=== PATIENT | female | born 1955 | race Caucasian/White ===

== ENCOUNTER 2019-08-05 10:30 | Outpatient (RCR) | payer OTHER, SELFPAY ==
--- NOTE | 2019-06-21 15:29 | PTOPEVAL ---
PHYSICAL THERAPY EVALUATION and PLAN OF CARE 06-21-19 The Physical Therapy evaluation was completed for the diagnosis of B LE lymphedema. Treatment is scheduled for 3x/week for 5 weeks. Thank you for referring Sandra to [facility]. Please review, sign, date and return this plan of care KT. I agree with and certify that the following plan of care is medically necessary. Referring Physician Date Attending Provider: Barb Smith NP *PT Outpatient Evaluation Start: 06/21/19 14:12 Document 06/21/19 14:05 TISHA (Rec: 06/21/19 15:23 TISHA [id number]) Assessment Status Evaluation Outpatient Past Medical History Neurological History Hx Other Neurological Disorders Yes: narcolepsy- getting work up for Cardiovascular History Hx Atrial Fibrillation Yes Hx Congestive Heart Failure Yes Hx Hypercholesterolemia Yes Hx Myocardial Infarction Yes Hx Other Cardiac Disorders Yes: follow with medical billing coordinator; recent monitoring manager Respiratory History Hx Chronic Obstructive Pulmonary Disease Yes (COPD) Hx Pneumonia Yes: recent hospitalization for pneumonia/flu Hx Sleep Apnea Yes: just received, problems with it Gastrointestinal History Hx Gastric Bypass Surgery Yes: about 15 yr ago Genitourinary History Hx Kidney Stones Yes: surgery 2x last yr; still have issues with Musculoskeletal History Hx Arthritis Yes: hands, legs hurt Hx Back Pain Yes: back pain and sciatica L LE Hx Joint Replacement Yes: TKR R Hx Other Musculoskeletal Disorders Yes: obesity 265#;restless leg syndrome Endocrine History Hx Diabetes Yes Hx Insulin Pump Yes: problems with pump- follow with isaac dutta's Psychosocial History Hx Bipolar Disorder Yes: not taking any meds Evaluation Information Problem Diagnosis B LE lymphedema Onset about 3 weeks ago- hospitalized with cellulitis B LE Previous Treatments Previous Treatments For This Problem no treatment of LE's Prior Level of Function Activity Level (Last 3 Months) Occupation not working Hand Dominance Right Medications Home Meds (Include: OTC, RX, Vitamins, inhaler, diabetic pump, Herbals, Dose, Route,and Frequency) furosemide, carvedilol, Query Text:Home Med Entries Will No fluconazole; Longer Recall From Past Visits. Home Meds Must Be Re-entered With Each Visit. Home Setting Home Type
--- NOTE | 2019-06-21 15:42 | PCPTNOTE ---
pt has limited availability for treatment times. She needs 2:00 or later appointment. Due to her limitations, treatment not initiated for 2 weeks. If availability is sooner, she will be called for an earlier appt;
--- NOTE | 2019-08-03 14:41 | PTOPEVAL ---
PHYSICAL THERAPY RE-EVALUATION AND UPDATED PLAN OF CARE 08-03-2019 Mrs. Chen has received 14 Physical Therapy sessions, from June 21 to today, for the diagnosis of B LE lymphedema. Treatment has included: manual lymph drainage, intermittent compression pump, multi layer compression wraps and education to pt for lymphedema care and management and leg exercises for strengthening. Compared to the initial evaluation: the circumferential measurement of her R LE has decreased by 32.3 cm and the tissue has improved with good skin color and without firmness; she has recently obtained a [employer] Juxtaf[employer] essential lower leg compression garment and foot piece for the R leg, which fit well and she can don/doff them; The compression wraps will be started today for the L lower leg. The strength of her R leg has improved since the size of the leg has decreased; she still has issues with SOB and L LE weakness with on/off bed. Physical Therapy is to continue 3x/week for 5 weeks, for treatment to her L lower leg and to obtain a compression garment to maintain the L LE. Thank you for referring Sandra to [facility]. Please review, sign, date and return this plan of care [facility]. I agree with and certify that the following plan of care is medically necessary. Referring Physician Date Attending Provider: Barb Smith NP *PT Outpatient Re-Evaluation Document 08/03/19 13:50 TISHA (Rec: 08/03/19 14:34 TISHA [id number]) Therapy Assessment Status Assessment Status Assessment Status Re-evaluation Subjective Information Sandra reports: is happy about Query Text:As Reported By Patient/ how good her R leg looks; the Family garment is doing OK--hard to get the foot piece on and daughter can help some if needed; has been doing her deep breathing and self massage. Pain Assessment Pain Scale Pain Scale Used Numeric (1 - 10) Self Report Pain Assessment Bilateral Leg(s) Reported Pain Level 0 Pain Description Soreness,Tender on Palpation Pain Radiation Left Leg,Right Leg Pain Frequency Intermittent Current Pain Intensity 0 Lowest Pain Intensity 0 Greatest Pain Intensity 3 Pain Level Goal 0 Pain Score Pain Score 0: Self Report Lower Extremity Muscle Strength Testing General Lower Extremity Strength Gross Lower Extremity Strength semi reclined: SLR on R x 15 reps and L x 6 reps; stated L leg really heavy and hard to lift in/out bed; Bed Mobility Assessment Bed Mobility Bed Type Mat Supine to Sit Ability Independent Sit to Supine Ability Independent Cues Needed for Bed Mobility None Bed Mobility Comments supine/sit transfer with use of UE to lift L LE on/
--- NOTE | 2019-08-09 11:30 | PCPTNOTE ---
late note;Pt called and cancelled her appointment yesterday, stating she went to our hospital this weekend due to lymph vesicle popping lower anterior leg and opening skin. Pt was told she needed to see wound care. Pt has an appointment for Thursday with wound care .
--- NOTE | 2019-08-15 09:17 | PCPTNOTE ---
Patient called & cancelled scheduled appointment this date due to still seeing wound care . tp has appt. Thursday with wound care and they have a wound wrap on it.
--- NOTE | 2019-08-17 11:34 | PCPTNOTE ---
Pt called last night at 5:30 and stated she was going to cancel thu and thu appt due to open wounds. Called pt back to check on her. Pt stated she had not gone to the wound center after contacting her freight router who wanted to treat her himself. After this treatment did not heal her wounds, the dr has now referred her to the wound center. i contacted the wound center, talked to Claudine to see if they could see her as soon as possible due to her wound being deeper now. Claudine stated she had her on the list to get her in on Thursday. I called Charlene back to let her know Claudine would be calling her after lunch.
--- NOTE | 2019-08-22 08:35 | PCPTNOTE ---
Charlene called and left a message this weekend about cancelling appointments. Returned her call and patient stated she was going to cancel this weeks appointment due to still going to wound center for her left anterior lower leg. Pt reports she is continuing to perform self mld with the help of her daughter, but she did take off the compression from the wound center due to skin irritation. Pt is keeping wound covered during day and using neosporin. Suggested pt call the wound center to make sure this is appropriate for her wound. pt has an appointment with wound center on Thursday.
--- NOTE | 2019-08-26 11:05 | PCPTNOTE ---
Charlene called and I returned call. Charlene stated she will need to have open heart surgery and will be cancelling all remaining therapy visits for now. Pt stated she had lost #22 pounds since her last her last de visit and had another echo cardiogram which showed her left ventricular has a valve that is not closing properly.
--- NOTE | 2019-09-06 14:32 | PCPTNOTE ---
PHYSICAL THERAPY DISCHARGE 09-06-2019 Attending Provider: Barb Smith NP Patient:Charlene Chen Date of :1955 Mrs. Chen has received 15 Physical Therapy sessions, from June 21 to August 05, for the diagnosis of lymphedema of LE's. She called/canceled 10 appointments, then called on August 26 and stated she is going to have cardiac surgery. Therefore she will be discharged from therapy at this time. The goals were not assessed. Thank you for referring Sandra to [facility]. Please review, sign, date and return this discharge summary KT. I have been updated about the patient's current status and I agree with discharge from the above service at this time. Referring Physician Date
== END 2019-09-07 11:15 | disposition home or self-care (01) ==
LOC: ANHPT 10:30
PROVIDERS: PCP Internal Medicine; Visit Provider Nurse Practitioner
DX: R60.9 Edema, unspecified (principal)
CPT/HCPCS: 29581; 97140; 97162

== ENCOUNTER 2019-08-08 05:57 | Emergency (ER) | payer OTHER, SELFPAY ==
[2019-08-08 06:06] VITALS: BP 110/93; PULSE 97; RESP 20; TEMP 37.2; O2SAT 100
--- NOTE | 2019-08-08 06:41 | ED.WOUNDLAC ---
HPI - Wound/Laceration General Chief Complaint: Wound/Laceration Stated Complaint: leg infection Time Seen by Provider: 08/08/19 06:16 Source: patient Mode of arrival: ambulatory Limitations: no limitations History of Present Illness HPI narrative: Patient is a 64-year-old female who presents to the emergency department with complaint of wound to her left lower leg. Patient is currently being seen in the wound care clinic and receiving treatment for lymphedema. Patient noticed a blister on the anterior aspect of her left lower leg 3 days ago. Patient describes a burning and stinging pain. Patient notes the blister did pop and has been draining clear fluid. Patient has occasionally noticed redness intermittently to her left lower leg that has been going on for quite some time. Patient states it was quite red this morning, but has improved. Patient denies any fever. She does report having nausea and one episode of vomiting yesterday. Patient is scheduled to be seen at the wound care clinic today to have her legs rewrapped. Patient has prior history of cellulitis to that leg and was concerned she may be at risk for developing cellulitis again. Onset (ago): day(s) Extremity Location: Left: lower leg Associated symptoms: pain Related Data Home Medications Medication Instructions Recorded Confirmed albuterol sulfate 90 mcg/actuation 2 puff INHALATION Q4-6H PRN gm 05/26/19 07/26/19 aerosol inhaler blood sugar diagnostic #10 each 05/26/19 07/26/19 budesonide-formoterol HFA 160 1 puff INHALATION DAILY PRN gm 05/26/19 07/26/19 mcg-4.5 mcg/actuation aerosol inhaler insulin lispro 100 unit/mL 140 unit SUB-Q ONCE ml 05/26/19 07/26/19 subcutaneous pen ropinirole 3 mg tablet 3 mg PO BID 05/26/19 07/26/19 carvedilol 12.5 mg tablet 25 mg PO BID tablet 06/09/19 07/26/19 sacubitril 24 mg-valsartan 26 mg 1 tablet PO BID 07/21/19 07/26/19 tablet tiotropium bromide 2.5 2 puff INHALATION DAILY 07/21/19 07/26/19 mcg/actuation mist for inhalation benzonatate mg PO 08/08/19 fluticasone propionate INTRANASAL 08/08/19 Allergies Allergy/AdvReac Type Severity Reaction Status Date / Time latex Allergy Severe HIVES Verified 08/08/19 06:07 Penicillins Allergy Severe HIVES Verified 08/08/19 06:07 cephalexin [From Keflex] Allergy Diarrhea Verified 08/08/19 06:07 diphenhydramine AdvReac Intermediate JERKY/JUMPY, Verified 08/08/19 06:07 GO CRAZY IN MY SKIN hydrocodone AdvReac Intermediate skin Verified 08/08/19 06:07 itchiness codeine AdvReac Mild NAUSEA/VOMI Verified 08/08/19 06:07 TING Review of Systems Review of Systems: All systems reviewed & are unremarkable except as noted in HPI and below Constitutional: Constitutional: Denies fever(s) Gastrointestinal: Gastrointestinal: Reports nausea and Reports vomiting PMFSH Past Medical History Medical History (Updated 08/08/19 @ 09:11 by Lalita Miller MD) Anisocoria Asthma Atrial fibrillation Bipolar disorder Celiac disease CHF (congestive heart failure) COPD (chronic obstructive pulmonary disease) Coronary artery disease Depression GERD (gastroesophageal reflux disease) Hyperlipidemia Hypertension Influenza A Kidney stones Obesity RLS (restless legs syndrome) Sleep apnea Thyroid disease Type 2 diabetes mellitus without complications Surgical History Surgical History (Updated 08/08/19 @ 06:51 by Lalita Miller MD) H/O gastric bypass H/O: hysterectomy History of carpal tunnel release of both wrists History of cholecystectomy History of cystoscopy History of esophagogastroduodenoscopy (EGD) History of lithotripsy History of total right knee replacement (TKR) Multiple kidney stones Surgery X2 Family History Family History (Updated 05/25/19 @ 12:46 by Betty Deluca CMA) Father Diabetes mellitus Acute myocardial infarction Mother Family history of peptic ulcer Family history of chronic obstructive pulmo
[2019-08-08 06:58] LABS: Basophils Absolute Auto 0.1 K/mm3 (0.0-0.1); Basophils Percent Auto 0.8 % (0.2-1.2); Eosinophils Absolute Auto 0.1 K/mm3 (0-0.3); Hematocrit 31.6 % (37.0-47.0); Hemoglobin 9.2 g/dL (12.0-15.0); Immature Granulocyte Absolute 0.02 K/mm3 (0.00-0.031); Immature Granulocyte Percent A 0.3 % (0-0.5); Lymphocytes Absolute Auto 0.91 K/mm3 (0.9-3.2); Lymphocytes Percent Auto 14.8 % (18.3-44.2); Mean Corpuscular HGB Conc 29.1 g/dl (32-36); Mean Corpuscular Hemoglobin 22.1 pg (26-34); Monocytes Absolute Auto 0.6 K/mm3 (0.1-0.6); Monocytes Percent Auto 9.1 % (2.6-8.5); Neutrophils Absolute Auto 4.5 K/mm3 (1.3-6.7); Platelet Count Result 221 k/mm3 (150-375); Red Blood Count 4.16 M/mm3 (4.2-5.4); Red Cell Distribution Width 17.2 % (11.5-14.5); White Blood Count 6.1 K/mm3 (4.5-10.0)
[2019-08-08 07:02] VITALS: BP 131/73; PULSE 81; RESP 20; O2SAT 100
[2019-08-08 07:16] LABS: Blood Urea Nitrogen 21 mg/dL (7-17); CRP < 0.5 mg/dL (<1.0); Calcium 8.7 mg/dL (8.4-10.2); Carbon Dioxide 25 mmol/L (22-30); Chloride 104 mmol/L (98-107); Estimated Glomerular Filt Rate > 60; Glucose 196 mg/dL (65-105); Potassium 4.4 mmol/L (3.4-5.0); Sodium 135 mmol/L (137-145)
[2019-08-08 07:25] LABS: Hypochromasia 2+ (NORMAL); Platelet Estimate Adequate (Adequate); Polychromasia 1+ (NORMAL)
--- NOTE | 2019-08-08 07:25 | PC.NURSE ---
Assumed care of pt, pt is alert and upright on stretcher. Discussed POC w/ pt and family member at bedside. VSS.
[2019-08-08 08:54] VITALS: BP 140/91; PULSE 82; RESP 15; O2SAT 100
[2019-08-08 09:25] VITALS: BP 145/92; PULSE 93; RESP 18; O2SAT 100
== END 2019-08-08 09:27 | disposition home or self-care (01) ==
PROVIDERS: Emergency Provider Emergency Medicine; PCP Internal Medicine
DX: I83.892 Varicose veins of left lower extremity with other complications (principal); I87.8 Other specified disorders of veins; J44.9 Chronic obstructive pulmonary disease, unspecified; I48.91 Unspecified atrial fibrillation; K90.0 Celiac disease; I25.10 Atherosclerotic heart disease of native coronary artery without angina pectoris; K21.9 Gastro-esophageal reflux disease without esophagitis; E78.5 Hyperlipidemia, unspecified; I11.0 Hypertensive heart disease with heart failure; I50.9 Heart failure, unspecified; Z87.442 Personal history of urinary calculi; E66.9 Obesity, unspecified; G47.30 Sleep apnea, unspecified; G25.81 Restless legs syndrome; E11.9 Type 2 diabetes mellitus without complications; Z79.4 Long term (current) use of insulin; Z98.84 Bariatric surgery status; Z96.651 Presence of right artificial knee joint
CPT/HCPCS: 36415; 80048; 85025; 86140; 99283

== ENCOUNTER 2019-08-30 07:21 | Outpatient (RCR) | payer OTHER, SELFPAY ==
[2019-08-19 15:01] VITALS: BMI 43.5
== END 2019-10-19 14:48 | disposition home or self-care (01) ==
LOC: ANHWOC 07:21
PROVIDERS: PCP Internal Medicine; Visit Provider Nurse Practitioner
DX: I87.8 Other specified disorders of veins (principal); L97.829 Non-pressure chronic ulcer of other part of left lower leg with unspecified severity; I89.0 Lymphedema, not elsewhere classified
CPT/HCPCS: 29581; 99212; A9270; G0463

== ENCOUNTER 2019-09-02 05:12 | Day surgery (SDC) | payer OTHER, SELFPAY ==
[2019-09-01 09:27] VITALS: BMI 41.6
[2019-09-02] VITALS (7 sets, daily range): BP systolic 124–139; BP diastolic 70–87; PULSE 84–94; RESP 15–22; TEMP 36.6–37.2; O2SAT 98–100
--- NOTE | 2019-09-02 | ECHO_ITS ---
Patient Info Name: Charlene Chen Age: 64 years : 1955 Gender: Female Ht: 66 in Wt: 257 lbs BSA: 2.39 m2 HR: 92 bpm BP: 138 / 80 mmHg Heart Rhythm: Sinus Rhythm Technical Quality: Good Exam Date: 09/02/2019 1:42 PM Exam Location: [facility] Patient Status: Outpatient Admit Date: 09/02/2019 Staff Ordering Physician: Tone Mishra MD Food Checker: Riley Levi, MICHEAL, RT Attending Provider: Tone Mishra MD Referring Physician: Tad WYNN; Exam Type: CA echo transesophageal Study Info Indications I34.8 - Other nonrheumatic mitral valve disorders Complete two-dimensional, color flow and Doppler transesophageal study is performed. Summary 1. Left ventricular systolic function is severely reduced with an ejection fraction by Biplane Method of Discs of Empty. 2. Left ventricular chamber dimension is moderately enlarged. 3. The mitral valve has normal leaflets. 4. There is moderate to severe mitral valve regurgitation. 5. MR appears to be the result of left ventricular annular dilation. Left Ventricle Left ventricular chamber dimension is moderately enlarged. Left ventricular systolic function is severely reduced with an ejection fraction by Biplane Method of Discs of Empty. Right Ventricle Right ventricular chamber dimension is mildly enlarged. Aortic Valve The aortic valve is trileaflet. Pulmonic Valve The pulmonic valve is normal. Mitral Valve The mitral valve has normal leaflets. There is moderate to severe mitral valve regurgitation. MR appears to be the result of left ventricular annular dilation. Tricuspid Valve The tricuspid valve leaflets are normal. There is mild tricuspid valve regurgitation. Pericardium/Pleural The pericardium appears normal. Inferior Vena Cava Not well visualized inferior vena cava with Empty collapse upon inspiration consistent with Empty right atrial pressure, Empty. Aorta The aortic root size at the sinus of Valsalva is normal. Report Signatures
--- NOTE | 2019-09-02 12:00 | WPDANESEPPF ---
Anes - Initial Pre Proc Eval Procedure: Operation Date: 09/02/19 13:30 Proposed Procedures p Trans Esophageal Echo - Tone Mishra MD Date/Time: 09/02/19 12:00 Surgeon: Tone Mishra MD Pre Op Diagnosis: Cardiomyopathy/ Moderate MR Patient Data Age: 64 Gender: F Height: 1.68 m Weight: 117 kg Allergies Allergy/AdvReac Type Severity Reaction Status Date / Time latex Allergy Severe HIVES Verified 08/08/19 06:07 Penicillins Allergy Severe HIVES Verified 08/08/19 06:07 cephalexin [From Keflex] Allergy Diarrhea Verified 08/08/19 06:07 diphenhydramine AdvReac Intermediate JERKY/JUMPY, Verified 08/08/19 06:07 GO CRAZY IN MY SKIN hydrocodone AdvReac Intermediate skin Verified 08/08/19 06:07 itchiness codeine AdvReac Mild NAUSEA/VOMI Verified 08/08/19 06:07 TING Home Medications Medication Instructions Recorded Confirmed Type albuterol sulfate 90 mcg/actuation 2 puff INHALATION Q4-6H PRN gm 05/26/19 08/25/19 History aerosol inhaler blood sugar diagnostic #10 each 05/26/19 08/25/19 History insulin lispro 100 unit/mL 140 unit SUB-Q ONCE ml 05/26/19 08/25/19 History subcutaneous pen ropinirole 3 mg tablet 3 mg PO BID 05/26/19 08/25/19 History carvedilol 12.5 mg tablet 25 mg PO BID tablet 06/09/19 08/25/19 History sacubitril 24 mg-valsartan 26 mg 1 tablet PO BID 07/21/19 08/25/19 History tablet furosemide 40 mg tablet 40 mg PO DAILY #90 tablet 07/26/19 08/25/19 Rx albuterol sulfate [ProAir HFA] 1 inh INHALATION QID PRN 08/19/19 08/25/19 History atorvastatin 40 mg PO DAILY 08/19/19 08/25/19 History ipratropium-albuterol [Combivent INHALATION 08/19/19 08/25/19 History Respimat] rivaroxaban 20 mg PO DAILY 08/19/19 08/25/19 History tiotropium bromide [Spiriva with 1 cap INHALATION DAILY 08/19/19 08/25/19 History HandiHaler] gabapentin 300 mg capsule 300 mg PO DAILY #90 cap 08/25/19 08/25/19 Rx tramadol 50 mg tablet 50 mg PO BID PRN #30 tablet 08/25/19 08/25/19 Rx Other Studies: 08/23/19 echo - ef 37% Patient hx anesthesia problems: none Family hx anesthesia problems: none PMFSH Past Medical History Medical History (Updated 08/09/19 @ 00:00 by Trevor Dunlap) Anisocoria Asthma Atrial fibrillation Bipolar disorder Celiac disease CHF (congestive heart failure) COPD (chronic obstructive pulmonary disease) Coronary artery disease Depression GERD (gastroesophageal reflux disease) Hyperlipidemia Hypertension Influenza A Kidney stones Obesity RLS (restless legs syndrome) Sleep apnea Thyroid disease Type 2 diabetes mellitus without complications Surgical History Surgical History (Updated 08/08/19 @ 06:51 by Lalita Miller MD) H/O gastric bypass H/O: hysterectomy History of carpal tunnel release of both wrists History of cholecystectomy History of cystoscopy History of esophagogastroduodenoscopy (EGD) History of lithotripsy History of total right knee replacement (TKR) Multiple kidney stones Surgery X2 Family History Family History (Updated 05/25/19 @ 12:46 by Betty Deluca [facility]) Father Diabetes mellitus Acute myocardial infarction Mother Family history of peptic ulcer Family history of chronic obstructive pulmonary disease, Onset Age: 92 CHF (congestive heart failure) Other Cerebrovascular accident Family history of arthritis Family history of cardiovascular disease Family history of congestive heart failure Family history of mental disorder Social History Social History Smoking status: Never smoker Alcohol intake: never Substance use: never Gender identity (if verbalized by the patient): Female Anes - Eval Final PreProcedure Day of Procedure 09/02/19 12:00 Patient weight: morbidly obese Heart: regular rate and rhythm Lungs: clear to auscultation and normal air movement Airway: Mallampati scale class II Neurological: alert and or
--- NOTE | 2019-09-02 13:53 | WPDCARDPROC ---
Cardiac Cath Procedure Note Date of procedure:: 09/02/19 Performing physician:: Tone Mishra MD Indication:: Nonischemic cardiomyopathy, mitral valve regurgitation Brief clinical history:: This is a 64-year-old woman with a history of nonischemic cardiomyopathy and atrial flutter. Despite medical therapy and maintenance of sinus rhythm she has reporting worsening shortness of breath. Echocardiogram demonstrates at least moderate if not severe MR. This appears to be the result of LV enlargement and annular dilatation. To determine if she has a candidate for surgery/slow mitral valve interventions a RAS has been recommended. Procedure Procedure performed:: Transesophageal echocardiogram Sedation/Medication given:: Please see anesthesia service note patient was sedated by anesthesiology Estimated blood loss:: No blood loss Procedure note:: Following sedation by anesthesia and the RSA probe was easily placed into the oropharynx and into the esophagus. Esophageal echocardiographic imaging and Doppler examination was performed easily and without complication. The left atrium is moderately to severely dilated. The mitral valve leaflets are anatomically normal. There are no disrupted chordal elements. The annulus is moderately dilated with central leaflet valve coaptation. Doppler examination of the mitral valve demonstrates severe MR. The left ventricle is moderately dilated and appears to be severely hypodynamic the global ejection fraction is visually estimated to be 25%. The aortic valve was normal trileaflet and is thin and pliable. Aortic root dimension is normal. The right atrium is dilated the right ventricle is mildly enlarged interatrial septum is normal in appearance the tricuspid valve looks normal and is modestly regurgitant. Findings:: Left ventricular dilatation with severe global systolic dysfunction Left atrial dilatation Mitral valve apparatus is anatomically normal with severe MR caused by annular dilatation and Anthony lab taken of the leaflets. Conclusion:: Severe functional mitral regurgitation as detailed above due to left ventricular and annular dilatation
== END 2019-09-02 16:05 | disposition home or self-care (01) ==
PROVIDERS: PCP Internal Medicine; Visit Provider Specialist
PROC: (CPT 93312; principal; 2019-09-02 13:30)
DX: I34.0 Nonrheumatic mitral (valve) insufficiency (principal); I42.8 Other cardiomyopathies; I48.0 Paroxysmal atrial fibrillation; I48.3 Typical atrial flutter; I25.10 Atherosclerotic heart disease of native coronary artery without angina pectoris; I11.0 Hypertensive heart disease with heart failure; I50.9 Heart failure, unspecified; J44.9 Chronic obstructive pulmonary disease, unspecified; E11.9 Type 2 diabetes mellitus without complications; Z79.4 Long term (current) use of insulin; Z79.899 Other long term (current) drug therapy; Z96.651 Presence of right artificial knee joint
CPT/HCPCS: 93312; 93320; 93325; J2704; J7030

== ENCOUNTER 2019-09-04 15:45 | Observation (INO) | payer OTHER, SELFPAY ==
[2019-09-04] VITALS (16 sets, daily range): BP systolic 95–147; BP diastolic 47–83; PULSE 76–94; RESP 12–20; TEMP 36.6–36.9; O2SAT 97–100; BMI 43.9
--- NOTE | ~2019-09-04 | CT_ITS ---
EXAMINATION: CTA chest PE abdomen pel DATE: 09/04/2019 18:52 INDICATION: Chest pain. Acute near syncope. Dizziness. TECHNIQUE: Computed tomography (CT) pulmonary angiogram of the chest was performed with 100 mL Omnipa que-350 intravenous contrast. Additional 3D reconstructions utilizing coronal maximum intensity proje ction (MIP) were performed. CT of the abdomen and pelvis was performed with intravenous contrast util izing the same contrast bolus following a short delay. Automated exposure control and iterative recon struction technique were employed. The dose-length product was 1729.05 mGy-cm. COMPARISON: Chest CT studies dated 09/28/2018 and 01/26/[address] abdomen and pelvis dated 02/24/2018 FINDINGS: Chest: Good contrast opacification of the pulmonary arteries. There is mild streak artifact from dense contr ast in the superior vena cava and right atrium. Mild scattered respiratory motion artifact which does not significantly limit evaluation. No pulmonary embolism. , No change in a few 4-5 mm noncalcified granuloma in the right lower and middle lobes where a calcified granuloma in the left lower lobe. Min imal dependent atelectasis in the bilateral lower lobes. No pneumonia, pulmonary edema, pleural effus ion or pneumothorax. Cardiomegaly. Atherosclerotic coronary artery calcifications. No pericardial eff usion. Thoracic aorta is normal in caliber with no dissection. No pathologically enlarged thoracic ly mphadenopathy. Bones are unremarkable. Abdomen/pelvis: Post cystectomy clips at the gallbladder fossa. Liver, pancreas and bilateral adrenal glands are norm al. Splenic calcification consistent with old granulomatous disease. Bilateral nonobstructing nephrol ithiasis with at least 9stones measuring up to 3 mm in the right kidney and 5 stones measuring up to 2 mm in the right kidney. There are couple less than 6 mm low-attenuation likely cyst at the upper po le of the left kidney which are too small to definitively characterize. Postoperative change of prior gastric bypass procedure with retrocolic Marko-en-Y limb. Normal appendix. No abnormal bowel wall thi ckening or obstruction. Bladder is normal. The uterus is not identified and has likely been surgicall y resected. No free intraperitoneal gas or fluid. No pathologically enlarged abdominal or pelvic lymp hadenopathy. There is calcified atherosclerosis of the aorta and many of the other arteries. Sacral n erve root stimulator in the subcutaneous tissues at the right flank with lead extending through the r ight S3 neural foramen. Severe spondylosis at L5-S1. IMPRESSION: 1. No pulmonary embolism or other acute cardiopulmonary disease. 2. Cardiomegaly. 3. Bilateral obstructing nephrolithiasis. Reviewed, dictated and finalized at location A. 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
--- NOTE | 2019-09-04 15:46 | ED.CHESTPAIN ---
HPI - Chest Pain General Chief Complaint: Chest Pain Stated Complaint: chest pain/dizziness Source: patient Mode of arrival: EMS Limitations: no limitations History of Present Illness HPI narrative: A 64 y/o female presents to the ED, via EMS, with c/o midsternal CP. Pt states that she was eating today when she suddenly started to have midsternal chest pain. She notes that the CP was accompanied by nausea, dizziness, and feeling faint. En route, the patient was given nitroglycerine that did not alleviate the CP. Pt denies ABD pain, back pain, cough, congestion, and SOB. She has PMHx of lymphedema and COPD. MD complaint: chest pain (Midsternal) Onset (ago): hour(s) (Today) Timing of current episode: constant Pain location: other (Midsternal) Relieving factors: nothing Associated symptoms: nausea and other (Dizziness, feeling faint) Treatment prior to arrival: nitroglycerin Related Data Home Medications Medication Instructions Recorded Confirmed albuterol sulfate 90 mcg/actuation 2 puff INHALATION Q4-6H PRN gm 05/26/19 09/02/19 aerosol inhaler blood sugar diagnostic #10 each 05/26/19 09/02/19 insulin lispro 100 unit/mL 140 unit SUB-Q ONCE ml 05/26/19 09/02/19 subcutaneous pen ropinirole 3 mg tablet 3 mg PO BID 05/26/19 09/02/19 carvedilol 12.5 mg tablet 25 mg PO BID tablet 06/09/19 09/02/19 sacubitril 24 mg-valsartan 26 mg 0.5 tablet PO BID 07/21/19 09/02/19 tablet Combivent Respimat 1 puff INHALATION QID 08/19/19 09/02/19 Spiriva with HandiHaler 1 cap INHALATION DAILY 08/19/19 09/02/19 albuterol sulfate [ProAir HFA] 1 inh INHALATION QID PRN 08/19/19 09/02/19 rivaroxaban 20 mg PO DAILY 08/19/19 09/02/19 Allergies Allergy/AdvReac Type Severity Reaction Status Date / Time latex Allergy Severe HIVES Verified 09/04/19 15:56 Penicillins Allergy Severe HIVES Verified 09/04/19 15:56 cephalexin [From Keflex] Allergy Diarrhea Verified 09/04/19 15:56 diphenhydramine AdvReac Intermediate JERKY/JUMPY, Verified 09/04/19 15:56 GO CRAZY IN MY SKIN hydrocodone AdvReac Intermediate skin Verified 09/04/19 15:56 itchiness codeine AdvReac Mild NAUSEA/VOMI Verified 09/04/19 15:56 TING Review of Systems Review of Systems: Narrative: CONSTITUTIONAL: Denies fever, chills, or sweats. Reports feeling faint. EYES: Denies visual changes, redness, or discharge. ENT: Denies rhinorrhea, congestion, sore throat, or otalgia. CARDIOVASCULAR: Denies palpitations or edema. Reports midsternal chest pain. RESPIRATORY: Denies cough or dyspnea. GASTROINTESTINAL: Denies abdominal pain, vomiting, or diarrhea. Reports nausea. GENITOURINARY: Denies dysuria or hematuria. SKIN: Denies rash or itching. MUSCULOSKELETAL: Denies back pain, joint pain, or myalgia. NEUROLOGIC: Denies headache, numbness, or weakness. Reports dizziness. All systems reviewed & are unremarkable except as noted in HPI and below PMFSH Past Medical History Medical History Anisocoria Asthma Atrial fibrillation Bipolar disorder Celiac disease CHF (congestive heart failure) COPD (chronic obstructive pulmonary disease) Coronary artery disease Depression GERD (gastroesophageal reflux disease) Hyperlipidemia Hypertension Influenza A Kidney stones Obesity RLS (restless legs syndrome) Sleep apnea Thyroid disease Type 2 diabetes mellitus without complications Surgical History Surgical History H/O gastric bypass H/O: hysterectomy History of carpal tunnel release of both wrists History of cholecystectomy History of cystoscopy History of esophagogastroduodenoscopy (EGD) History of lithotripsy History of total right knee replacement (TKR) Multiple kidney stones Surgery X2 Family History Family History Father Diabetes mellitus Acute myocardial infarction Mother Family history of peptic ulcer Family his
--- NOTE | 2019-09-04 15:48 | ECG_ITS ---
Measurements Intervals [place] Rate: 91 P: 56 ME: 184 QRS: 124 QRSD: 174 T: 38 QT: 412 QTc: 507 Interpretive Statements SINUS RHYTHM BORDERLINE AV CONDUCTION DELAY POSSIBLE LEFT ATRIAL ENLARGEMENT RIGHT BUNDLE BRANCH BLOCK LEFT POSTERIOR FASCICULAR BLOCK ABNORMAL ECG Electronically Signed On 09-04-2019 16:20:01 SALES ACTIVITY MANAGER by Narinder Roche D.O.
[2019-09-04] MEDS: ONDANSETRON INJ 4 MG/2 ML VIAL IV PUSH (16:00)
[2019-09-04] MEDS: MORPHINE SULFATE 4 MG/ML INJ IV PUSH (16:01)
--- NOTE | 2019-09-04 16:02 | PC.NURSE ---
1602: 0.4mh sl nitro given vitals 85HR, 99% spO2, BP152/83, pain 9/10
--- NOTE | 2019-09-04 16:09 | PC.NURSE ---
1407- 2nd 0.4mh SL Nitro given HR89, 13RR, 100%SpO2, 142/72, pain 9/10
--- NOTE | 2019-09-04 16:16 | ECG_ITS ---
Measurements Intervals [place] Rate: 82 P: 49 HI: 180 QRS: 127 QRSD: 170 T: 32 QT: 423 QTc: 495 Interpretive Statements SINUS RHYTHM WITH SINUS ARRHYTHMIA POSSIBLE LEFT ATRIAL ENLARGEMENT RIGHT BUNDLE BRANCH BLOCK LEFT POSTERIOR FASCICULAR BLOCK ABNORMAL ECG Electronically Signed On 09-05-2019 6:53:42 MEN'S SWIM COACH by Narinder Roche D.O.
[2019-09-04] MEDS: METOCLOPRAMIDE HCL INJ 10 MG/2 ML VIAL IV PUSH (16:31)
[2019-09-04] MEDS: HYDROMORPHONE HCL 1 MG/ML INJ 0.5 MG IV PUSH (16:31)
[2019-09-04] MEDS: FAMOTIDINE 20 MG/2 ML VIAL IV PUSH ×2 (16:31→21:52)
[2019-09-04 16:53] LABS: Basophils Absolute Auto 0.1 K/mm3 (0.0-0.1); Basophils Percent Auto 0.8 % (0.2-1.2); Eosinophils Absolute Auto 0.2 K/mm3 (0-0.3); Eosinophils Percent Auto 2.5 % (0-4.4); Hematocrit 32.5 % (37.0-47.0); Hemoglobin 9.5 g/dL (12.0-15.0); Immature Granulocyte Absolute 0.02 K/mm3 (0.00-0.031); Immature Granulocyte Percent A 0.3 % (0-0.5); Lymphocytes Absolute Auto 1.11 K/mm3 (0.9-3.2); Lymphocytes Percent Auto 15.3 % (18.3-44.2); Mean Corpuscular HGB Conc 29.2 g/dl (32-36); Mean Corpuscular Hemoglobin 21.5 pg (26-34); Mean Corpuscular Volume 73.7 fl (80-100); Mean Platelet Volume 10.2 fl (7.4-10.4); Monocytes Absolute Auto 0.6 K/mm3 (0.1-0.6); Monocytes Percent Auto 8.4 % (2.6-8.5); Neutrophils Absolute Auto 5.3 K/mm3 (1.3-6.7); Neutrophils Percent Auto 72.7 % (45.5-73.1); Platelet Count Result 273 k/mm3 (150-375); Red Blood Count 4.41 M/mm3 (4.2-5.4); Red Cell Distribution Width 17.4 % (11.5-14.5); White Blood Count 7.2 K/mm3 (4.5-10.0)
[2019-09-04 17:00] LABS: Alanine Aminotransferase 27 U/L (4-35); Albumin Level 3.7 g/dL (3.5-5.1); Alkaline Phosphatase 108 U/L (38-126); Aspartate Amino Transferase 22 U/L (14-36); Bilirubin,Total 0.3 mg/dL (0.2-1.3); Blood Urea Nitrogen 20 mg/dL (7-17); Calcium 8.7 mg/dL (8.4-10.2); Carbon Dioxide 29 mmol/L (22-30); Chloride 103 mmol/L (98-107); Estimated Glomerular Filt Rate > 60; Glucose 293 mg/dL (65-105); Lipase 200 U/L (23-300); Sodium 137 mmol/L (137-145)
[2019-09-04 17:01] LABS: Hypochromasia 1+ (NORMAL); Platelet Estimate Adequate (Adequate); Prothrombin Time 12.7 Seconds (11.1-14.7)
[2019-09-04 17:06] LABS: Partial Thromboplastin Time 25.2 SECONDS (22.3-36.8)
[2019-09-04 17:08] LABS: NT Pro B Type Natriuretic Pept 806 PG/ML (5-100)
--- NOTE | 2019-09-04 17:25 | ECG_ITS ---
Measurements Intervals [place] Rate: 84 P: 52 GA: 203 QRS: 103 QRSD: 176 T: 23 QT: 434 QTc: 516 Interpretive Statements SINUS RHYTHM WITH FIRST DEGREE AV BLOCK POSSIBLE LEFT ATRIAL ENLARGEMENT RIGHT AXIS DEVIATION RIGHT BUNDLE BRANCH BLOCK ABNORMAL ECG Electronically Signed On 09-07-2019 13:28:10 TRACK WORKER by Narinder Roche D.O.
[2019-09-04] MEDS: BELLADONNA ALK/PHENOB ELIX 10 ML, MAG HYDROX/ALUMINUM HYD/SIMETH 30 ML, LIDOCAINE HCL 2... PO (17:36)
[2019-09-04] MEDS: SODIUM CHLORIDE 0.9% IV 1,000 ML 999 ML IV CONT (18:10)
[2019-09-04 21:32] LABS: Troponin I 0.018 ng/mL (0.000-0.034)
[2019-09-04 21:52] LABS: Glucose Point of Care 274 (65-105)
--- NOTE | 2019-09-04 21:58 | PM.IMHP ---
H&P: HPI History of Present Illness Chief complaint: Chest pain, nausea/vomiting Narrative: Charlene Chen is a 64 year old female who has multiple comorbidities. She is diabetic, COPD, and CHF. The patient tells me she is supposed to get a valve replaced next week at [place] it looks like possibly a mitral valve. The patient came in today with complaints of midsternal chest pain. She was eating today when she suddenly started to have midsternal chest pain. The patient has had a history of gastric bypass as well. Cardiac enzymes have been negative so far. The patient was given nitroglycerin EN route to the hospital but that did not help. The patient had chest pain that was midsternal as well as nausea and dizziness. She felt faint as well. Patient was given a GI cocktail and that seemed to help some. Her blood sugar was 293. The patient does have a insulin pump that she maintains. Cardiology has been consulted. The patient was admitted to IMU overnight. Date of service 09/04/2019. She was given IV Pepcid and Reglan as well. She was given morphine as well and is feeling sleepy now. Review of Systems Review of Systems: All systems reviewed & are unremarkable except as noted in HPI and below Constitutional: Constitutional: Reports as per HPI and Reports no additional constitutional complaints Eyes: Eyes: Reports as per HPI and Reports no additional eye complaints ENT: Reports system reviewed and no additional complaints, except as documented and Reports Normal hearing present Cardiovascular: Cardiovascular: Reports no additional cardiovascular complaints Respiratory: Respiratory: Reports no additional respiratory complaints and Reports no additional respiratory complaints Gastrointestinal: Gastrointestinal: Reports as per HPI, Reports no additional gastrointestinal complaints, Reports dyspepsia and Reports nausea Musculoskeletal: Musculoskeletal: Reports no additional musculoskeletal complaints Integumentary/Breasts: Skin/Breast: Reports system reviewed and no additional complaints, except as docu and Reports as per HPI Neurologic: Reports system reviewed and no additional complaints, except as documented, Reports as per HPI and Reports Normal hearing present Psychiatric: Psychiatric: Reports no additional psychiatric complaints and Reports as per HPI Endocrine: Endocrine: Reports no additional endocrine complaints Hematologic/Lymphatic: Hematologic/Lymphatic: Reports no additional hematologic/lymphatic complaints Allergic/Immunologic: Allergic/Immunologic: Reports no additional allergic/immunologic complaints [facility] Past Medical History Medical History (Updated 09/04/19 @ 22:11 by Leticia Stevens NP) Anisocoria Asthma Atrial fibrillation Bipolar disorder Celiac disease CHF (congestive heart failure) Mixed COPD (chronic obstructive pulmonary disease) Coronary artery disease Depression GERD (gastroesophageal reflux disease) Hyperlipidemia Hypertension Influenza A Kidney stones Multiple with at least 2 surgeries. Mitral valve regurgitation Moderate Obesity History of gastric bypass. BMI 43 RLS (restless legs syndrome) Sleep apnea Thyroid disease Patient no longer takes thyroid medicine. Type 2 diabetes mellitus without complications The patient has an insulin pump. Surgical History Surgical History (Updated 09/04/19 @ 22:05 by Leticia Stevens NP) H/O section H/O gastric bypass H/O: hysterectomy History of bladder surgery History of carpal tunnel release of both wrists History of cholecystectomy History of cystoscopy History of esophagogastroduodenoscopy (EGD) History of lithotripsy History of total right knee replacement (TKR) Multiple kidney stones Surgery X2 Family History Family History Father Diabetes mellitus Acute myocardial infarction Mother Family history of peptic ulcer Family history of chronic obs
--- NOTE | 2019-09-04 22:40 | ADMGEN ---
This patient, Charlene Chen, was admitted to IMU Room 231-01. Patient/family oriented to hospital policies and general routines including ID bracelet, bed and alarms, visiting hours, pain management, procedures, bathroom and other care routines, personal items, smoking policy, room service/diet, and visiting hours. Valuables list has been completed. Information on how to activate the Rapid Response Team has been discussed. Patient/Family are encouraged to report perceived risks to care and to ask questions if they do not understand what they are told or what they should do.
[2019-09-04] MEDS: carvediloL 25 MG TABLET PO (23:52)
[2019-09-04] MEDS: RIVAROXABAN 20 MG TABLET PO (23:52)
[2019-09-05] VITALS (11 sets, daily range): BP systolic 110–128; BP diastolic 55–71; PULSE 68–87; RESP 12–20; TEMP 36.4–36.8; O2SAT 97–100
[2019-09-05 01:02] LABS: Troponin I 0.019 ng/mL (0.000-0.034)
[2019-09-05 05:05] LABS: Basophils Percent Auto 0.6 % (0.2-1.2); Eosinophils Absolute Auto 0.3 K/mm3 (0-0.3); Eosinophils Percent Auto 5.3 % (0-4.4); Hematocrit 28.3 % (37.0-47.0); Hemoglobin 8.2 g/dL (12.0-15.0); Immature Granulocyte Absolute 0.01 K/mm3 (0.00-0.031); Immature Granulocyte Percent A 0.2 % (0-0.5); Lymphocytes Absolute Auto 1.25 K/mm3 (0.9-3.2); Lymphocytes Percent Auto 23.7 % (18.3-44.2); Mean Corpuscular Hemoglobin 21.3 pg (26-34); Mean Corpuscular Volume 73.5 fl (80-100); Mean Platelet Volume 9.6 fl (7.4-10.4); Monocytes Absolute Auto 0.6 K/mm3 (0.1-0.6); Monocytes Percent Auto 11.4 % (2.6-8.5); Neutrophils Absolute Auto 3.1 K/mm3 (1.3-6.7); Neutrophils Percent Auto 58.8 % (45.5-73.1); Platelet Count Result 208 k/mm3 (150-375); Red Blood Count 3.85 M/mm3 (4.2-5.4); Red Cell Distribution Width 17.5 % (11.5-14.5); White Blood Count 5.3 K/mm3 (4.5-10.0)
[2019-09-05 05:18] LABS: Alanine Aminotransferase 76 U/L (4-35); Alkaline Phosphatase 177 U/L (38-126); Aspartate Amino Transferase 95 U/L (14-36); Bilirubin,Total 0.2 mg/dL (0.2-1.3); Blood Urea Nitrogen 19 mg/dL (7-17); Calcium 8.2 mg/dL (8.4-10.2); Carbon Dioxide 30 mmol/L (22-30); Chloride 104 mmol/L (98-107); Estimated CRCL calculation 94 ml/min; Estimated Glomerular Filt Rate > 60; Glucose 180 mg/dL (65-105); Magnesium 2.2 mg/dL (1.6-2.3); Potassium 3.9 mmol/L (3.4-5.0); Sodium 137 mmol/L (137-145)
[2019-09-05 05:35] LABS: Large Platelets Present; Platelet Estimate Adequate (Adequate)
[2019-09-05 05:37] LABS: Hypochromasia 2+ (NORMAL)
[2019-09-05 07:39] LABS: Glucose Point of Care 143 (65-105)
[2019-09-05 07:57] LABS: Free T4 Free Thyroxine Reflex 0.92 ng/dL (0.78-2.19)
[2019-09-05 09:01] LABS: Total Triiodothyronine (T3) 1.01 NG/ML (0.97-1.69)
[2019-09-05] MEDS: FUROSEMIDE 40 MG TABLET PO (09:43)
[2019-09-05] MEDS: PANTOPRAZOLE 40 MG TABLET PO (09:43)
[2019-09-05] MEDS: carvediloL 25 MG TABLET PO (09:43)
[2019-09-05 10:02] LABS: Glucose Point of Care 152 (65-105)
[2019-09-05 10:44] LABS: Immature Reticulocyte Fraction 22.2 % (3.0-15.9); Reticulocyte Hemoglobin Conten 24.9 pg (28.2-35.7); Reticulocytes Absolute 0.08 B/L (32.2-175.7)
[2019-09-05 11:02] LABS: Hematocrit 31.7 % (37.0-47.0); Hemoglobin 9.3 g/dL (12.0-15.0); Mean Corpuscular HGB Conc 29.3 g/dl (32-36); Mean Corpuscular Hemoglobin 21.5 pg (26-34); Mean Corpuscular Volume 73.4 fl (80-100); Mean Platelet Volume 9.7 fl (7.4-10.4); Platelet Count Result 218 k/mm3 (150-375); Red Blood Count 4.32 M/mm3 (4.2-5.4); Red Cell Distribution Width 17.6 % (11.5-14.5); White Blood Count 5.4 K/mm3 (4.5-10.0)
[2019-09-05 11:47] LABS: Lactate Dehydrogenase 691 U/L (313-618)
[2019-09-05 12:06] LABS: Iron 35 ug/dL (37-170)
[2019-09-05 12:40] LABS: Percent Iron Saturation 7 % (20-50)
--- NOTE | 2019-09-05 14:02 | PM.CNCAR ---
Assessment and Plan Additional Plan 64-year-old white female with Chest pain syndrome after dinner last evening this was obviously GI in nature as she had some impacted food in the esophagus in after vomiting immediately obtained relief. She is known not to have any coronary artery disease and has no ECG changes suggesting ischemia/injury and normal troponin levels x3 sets. She does have significant mitral regurgitation and LV systolic dysfunction and has been referred to see the valve Clinic at [place] as an outpatient for consultation. The H and P of the chart erroneously indicates that she is scheduled for a mitral valve operation next week. This is not the case she as I dictate this she has not yet even seem to physicians in the valve clinic so she is obviously not scheduled for an operation at this moment. Hopefully they will be able to either perform a mitral valve ring or potentially a MitraClip intervention. Cardiac-geller she is stable there is no evidence of acute coronary syndrome in this lady with known not to have any coronary disease. She can be discharged from my perspective Tone Mishra MD [facility] History of Present Illness History of Present Illness Consult date/time: Date of service: 09/05/19 14:02 Consult reason: chest pain Reason For Visit: Chest pain, nausea/vomiting Narrative: This 64-year-old woman who was relatively well known to me admitted to the hospital through the emergency room last evening because of some chest pain. Patient is not known to have any coronary artery disease she does have a history of nonischemic cardiomyopathy, atrial flutter as well as mitral valve regurgitation. She was in her usual state of health last evening when she was eating dinner at a restaurant she ate some fried fish and I after that began to feel unwell. She states she was having some relatively severe epigastric to low substernal pain that she initially was moderate and then intensified in was 9/10 on a severity scale by the time she got to the emergency room to be evaluated. Cardiac-geller her ECG did not show any acute abnormalities and her biomarkers were negative. The patient sees me with a history of the issues mentioned above. I saw her in January of 2022 1017 which was in the hospital because of symptomatic nephrolithiasis. She was found at that time to be in atypical atrial flutter she was treated with beta blockers and converted to sinus rhythm. Since then she has been managed with carvedilol and enalapril. She did have a coronary angiogram done at the time of diagnosis which showed no evidence of ischemic heart disease. She does have sleep apnea and has been on CPAP therapy. The patient has been morbidly obese she still has a BMI of 43 she did have a gastric bypass operation about 12 years ago for that. I saw this patient in the office a couple of times recently because of increasing shortness of breath [place] she was found to have mitral valve regurgitation which is moderate to severe in nature because of annular dilatation. The valve is an anatomically looked normal there were no signs of disrupted chordal elements. She did have a RAS just a few days ago as an outpatient for further evaluation of this and was [facility] [place] to see if she was a candidate for a mitral valve repair procedure. She went was in severe pain in the emergency room she then proceeded to vomit the context of her dinner which included all of the food and very quickly after that she became free of these symptoms. She had a GI cocktail afterwards and she feels well this morning her biomarkers are normal x3 sets. Her cardiac symptomatology includes mostly shortness of breath with mild activity which is attributable to her mitral valve disease and LV dysfunction as well as obesity. Review of Systems Eyes: Eyes: Reports no additional eye complaints ENT: Reports system reviewed and no additional complaints, except as docum
[2019-09-05 14:26] LABS: Glucose Point of Care 266 (65-105)
--- NOTE | 2019-09-05 14:31 | PM.IMPN ---
Progress Note: A&P Assessment and Plan (1) Atypical chest pain: Code(s): R07.89 - Other chest pain Status: Acute Assessment and Plan: Chest pain seems clearly gastrointestinal. She has had the recent RAS and normal coronaries on catheterization in the past. Will place on Protonix. She will follow-up with her GI (2) Mitral valve regurgitation: Code(s): I34.0 - Nonrheumatic mitral (valve) insufficiency Status: Chronic Assessment and Plan: Scheduled to be referred to cardiothoracic surgeon at [place] and the near future. 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 of insulin Code(s): E11.9 - Type 2 diabetes mellitus without complications Status: Chronic Assessment and Plan: Insulin pump continue the same (5) COPD (chronic obstructive pulmonary disease): Code(s): J44.9 - Chronic obstructive pulmonary disease, unspecified Status: Chronic Assessment and Plan: Stable continue her usual inhalers (6) NICHOLE (obstructive sleep apnea): Code(s): G47.33 - Obstructive sleep apnea (adult) (pediatric) Status: Acute Assessment and Plan: Continue her CPAP (7) Iron deficiency anemia: Code(s): D50.9 - Iron deficiency anemia, unspecified Status: Acute Assessment and Plan: A ferritin only 11 with iron of 35 TIBC of 500, normal B12. Probable secondary to poor absorption from her history of gastric bypass. There is no history of any blood loss with her emesis or bloody stools. Hemoglobin slightly lower than had been in the past. Patient cannot remember night can't fully documented when her last EGD and colonoscopies were so she will have to follow-up with primary and possible Gastroenterology. Did receive 300 mg of IV iron while here Subjective Date/time seen: 09/05/19 14:31 Interval history: Date of visit 09/04. 64-year-old type 2 diabetic with known mitral insufficiency, CHF, COPD, who was admitted to the hospital for observation with complaints of epigastric substernal pain bolus vomiting that occurred after eating. Pain relieved with GI cocktail but not nitroglycerin and troponin EKG unchanged. The discomfort seems totally GI but cardiology was consult called with for evaluation.. She had a transesophageal echo approximately a week ago showed severe mitral regurg D and her cardiac catheterization approximately 2-3 years ago showed normal coronaries. She has had EGD in the past but she can't remember how long ago and how long ago was her gastric bypass surgery. She frequently has nausea and epigastric pain postprandially she eats too much with certain foods and has chronic diarrhea Exam Narrative: Exam Narrative: Blood pressure 118/68 pulse is 82 Lungs clear CV regular rate rhythm I hear no definite murmur Abdomen soft nontender obese Extremities without edema dorsalis pedis posterior tibial 1+ Neuro alert cooperative no focal deficits Objective Data Vital Signs Vital Signs: Vital Signs - 24 hr 09/04/19 15:48 09/04/19 15:54 09/04/19 16:17 Temperature 36.9 C Pulse Rate 89 85 88 Respiratory Rate 12 17 Blood Pressure 147/83 H 136/82 Pulse Oximetry 100 100 100 09/04/19 16:31 09/04/19 16:45 09/04/19 17:01 Temperature Pulse Rate Respiratory Rate Blood Pressure 132/73 113/60 95/49 L Pulse Oximetry 09/04/19 17:15 09/04/19 17:17 09/04/19 18:15 Temperature Pulse Rate 90 92 Respiratory Rate 15 19 Blood Pressure 102/48 L 96/49 L 117/57 L Pulse Oximetry 09/04/19 18:53 09/04/19 19:47
--- NOTE | 2019-09-05 14:40 | PM.DS ---
DS: Diagnosis Admitting Diagnosis Admitting Diagnosis: Chest pain, unspecified Discharge Diagnosis (1) Atypical chest pain: Code(s): R07.89 - Other chest pain Status: Acute Assessment and Plan: Chest pain seems clearly gastrointestinal. She has had the recent RAS and normal coronaries on catheterization in the past. Will place on Protonix. She will follow-up with her GI Troponins were negative, EKG unchanged, and she was evaluated by Cardiology (2) Mitral valve regurgitation: Code(s): I34.0 - Nonrheumatic mitral (valve) insufficiency Status: Chronic Assessment and Plan: Scheduled to be referred to cardiothoracic surgeon at [place] and the near future. Compensated (3) CHF (congestive heart failure): Code(s): I50.9 - Heart failure, unspecified Status: Chronic Assessment and Plan: Combined systolic diastolic chronic and stable continue home meds (4) Type 2 diabetes mellitus without complications: Qualifiers: Diabetes mellitus snf insulin use: with snf use Qualified Code(s): E11.9 - Type 2 diabetes mellitus without complications; Z79.4 - prison (current) use of insulin Code(s): E11.9 - Type 2 diabetes mellitus without complications Status: Chronic Assessment and Plan: Insulin pump continue the same (5) COPD (chronic obstructive pulmonary disease): Code(s): J44.9 - Chronic obstructive pulmonary disease, unspecified Status: Chronic Assessment and Plan: Stable continue her usual inhalers (6) NICHOLE (obstructive sleep apnea): Code(s): G47.33 - Obstructive sleep apnea (adult) (pediatric) Status: Acute Assessment and Plan: Continue her CPAP (7) Iron deficiency anemia: Code(s): D50.9 - Iron deficiency anemia, unspecified Status: Acute Assessment and Plan: A ferritin only 11 with iron of 35 TIBC of 500, normal B12. Probable secondary to poor absorption from her history of gastric bypass. There is no history of any blood loss with her emesis or bloody stools. Hemoglobin slightly lower than had been in the past. Patient cannot remember night can't fully documented when her last EGD and colonoscopies were so she will have to follow-up with primary and possible Gastroenterology. Did receive 300 mg of IV iron while here DS: Summary Hospital Course Hospital Course: 64-year-old white female admitted with chest pain and nausea vomiting postprandial. Pain was relieved partially with GI cocktail and no relief with nitroglycerin. Normal coronaries on catheterization some 2-3 years ago and recent RAS revealed severe mitral insufficiency.. Troponins were negative and seen in consultation by Cardiology here and will be discharged home with Protonix daily. She will follow up with primary and possible GI. Patient could not related to last time she did have GI studies and does have documented iron deficiency anemia now although no evidence of blood loss Given 300 mg of IV iron while here Time Spent with Patient Time attestation: Total time spent providing and/or coordinating discharge services: 35 Exam Narrative: Exam Narrative: Condition on discharge Blood pressure 118/68 pulse is 82 and regular Lungs clear CV regular rate rhythm and do not appreciate any systolic murmurs Abdomen soft nontender no masses Extremities without edema distal pulses are 2+ Neuro alert cooperative no focal deficits DS: Data Data Completed and Pending Labs on day of discharge: Labs from last 24 hours 09/05/19 09/05/19 09/05/19 14:21 10:53 10:53 WBC RBC Hgb Hct MCV MCH MCHC RDW Plt Count MPV Immature Gran % (Auto) Neut % (Auto) Lymph % (Auto) [place] % (Auto) Eos % (Auto) Baso % (Auto) Lymph # (Auto) Butler # (Auto) Eos # (Auto) Baso # (Auto) Abs Immat Gran (auto) Absolute Neuts (auto) Absolute Nucleated RBC Nucleated RBC %
== END 2019-09-05 16:13 | disposition home or self-care (01) ==
LOC: ANHED 18:26 → ANHIMU 23:29
PROVIDERS: Nurse Practitioner; Admitting Provider Hospitalist; Emergency Provider Emergency Medicine; PCP Internal Medicine; Visit Provider Internal Medicine
DX: R07.89 Other chest pain (principal); I34.0 Nonrheumatic mitral (valve) insufficiency; I11.0 Hypertensive heart disease with heart failure; I50.42 Chronic combined systolic (congestive) and diastolic (congestive) heart failure; E11.9 Type 2 diabetes mellitus without complications; J44.9 Chronic obstructive pulmonary disease, unspecified; G47.30 Sleep apnea, unspecified; D50.9 Iron deficiency anemia, unspecified; E78.5 Hyperlipidemia, unspecified; F32.9 Major depressive disorder, single episode, unspecified; I89.0 Lymphedema, not elsewhere classified; Z79.4 Long term (current) use of insulin; Z79.899 Other long term (current) drug therapy; Z96.41 Presence of insulin pump (external) (internal); Z98.84 Bariatric surgery status; Z96.651 Presence of right artificial knee joint
CPT/HCPCS: 36415; 71275; 74177; 80053; 82607; 82728; 83540; 83550; 83615; 83690; 83735; 83880; 84439; 84443; 84480; 84484; 85025; 85027; 85046; 85610; 85730; 93005; 94640; 94660; 96361; 96374; 96375; 96376; 99285; A9270; G0378; J1170; J1756; J2270; J2405; J2765; J7030; Q9967

== ENCOUNTER 2019-11-16 13:42 | Outpatient (CLI) | payer OTHER, SELFPAY ==
[2019-11-16 13:55] LABS: Basophils Absolute Auto 0.1 K/mm3 (0.0-0.1); Basophils Percent Auto 0.8 % (0.2-1.2); Eosinophils Absolute Auto 0.1 K/mm3 (0-0.3); Eosinophils Percent Auto 1.7 % (0-4.4); Hematocrit 36.9 % (37.0-47.0); Immature Granulocyte Absolute 0.02 K/mm3 (0.00-0.031); Immature Granulocyte Percent A 0.3 % (0-0.5); Lymphocytes Absolute Auto 1.59 K/mm3 (0.9-3.2); Lymphocytes Percent Auto 24.4 % (18.3-44.2); Mean Corpuscular HGB Conc 29.8 g/dl (32-36); Mean Corpuscular Hemoglobin 22.9 pg (26-34); Mean Corpuscular Volume 76.9 fl (80-100); Mean Platelet Volume 9.9 fl (7.4-10.4); Monocytes Absolute Auto 0.5 K/mm3 (0.1-0.6); Neutrophils Absolute Auto 4.2 K/mm3 (1.3-6.7); Neutrophils Percent Auto 64.8 % (45.5-73.1); Platelet Count Result 202 k/mm3 (150-375); Red Cell Distribution Width 18.6 % (11.5-14.5); White Blood Count 6.5 K/mm3 (4.5-10.0)
[2019-11-16 14:08] LABS: Alanine Aminotransferase 22 U/L (4-35); Albumin Level 3.9 g/dL (3.5-5.1); Alkaline Phosphatase 109 U/L (38-126); Aspartate Amino Transferase 30 U/L (14-36); Bilirubin,Total 0.3 mg/dL (0.2-1.3); Blood Urea Nitrogen 16 mg/dL (7-17); Calcium 8.8 mg/dL (8.4-10.2); Carbon Dioxide 27 mmol/L (22-30); Chloride 109 mmol/L (98-107); Cholesterol 146 mg/dL (0-200); Estimated Glomerular Filt Rate > 60; Glucose 111 mg/dL (65-105); HDL Direct 54 mg/dL; Platelet Estimate Adequate (Adequate); Potassium 4.1 mmol/L (3.4-5.0); Sodium 141 mmol/L (137-145); Triglycerides 86 mg/dL (<150)
[2019-11-16 14:09] LABS: Hypochromasia 1+ (NORMAL)
[2019-11-16 14:11] LABS: Hemoglobin A1C 8.2 % (<5.7)
[2019-11-16 14:19] LABS: LDL Cholesterol Direct 78 mg/dL
== END 2019-11-16 13:43 | disposition home or self-care (01) ==
PROVIDERS: PCP Internal Medicine; Visit Provider Nurse Practitioner
DX: E78.5 Hyperlipidemia, unspecified (principal); E11.9 Type 2 diabetes mellitus without complications
CPT/HCPCS: 36415; 80053; 80061; 83036; 85025

== ENCOUNTER 2020-02-24 11:32 | Outpatient (CLI) | payer MEDICARE, OTHER, SELFPAY ==
--- NOTE | ~2020-02-24 | US_ITS ---
EXAMINATION: US venous doppler LE EXAM DATE: 02/24/2020 12:07 INDICATION: Bilateral leg edema. TECHNIQUE: Multiple grayscale, color flow and Doppler images of the lower extremity deep venous syste ms bilaterally were obtained and reviewed. Comparison is made to prior examination from 04/17/2015. FINDINGS: Right side: The right common femoral, femoral and profunda veins demonstrate normal color flow, respi ratory variation, augmentation and compressibility. Compressibility, color flow confirmed within the right popliteal, posterior tibial, peroneal, and greater saphenous veins. Left side: The left common femoral, femoral and profunda veins demonstrate normal color flow, respira tory variation, augmentation and compressibility. Compressibility, color flow confirmed within the l eft popliteal, posterior tibial, peroneal, and greater saphenous veins. IMPRESSION: 1. No lower extremity deep venous thrombosis bilaterally. Reviewed, dictated and finalized at location B.
== END 2020-02-24 11:33 | disposition home or self-care (01) ==
PROVIDERS: PCP Internal Medicine; Visit Provider Clinical Nurse Specialist
DX: R60.0 Localized edema (principal)
CPT/HCPCS: 93970

== ENCOUNTER 2020-04-20 12:08 | Outpatient (NON) | payer MEDICARE, OTHER, SELFPAY ==
[2020-04-20 22:31] LABS: SARS-CoV-2 RNA PCR Negative
== END 2020-04-20 12:09 ==
PROVIDERS: PCP Internal Medicine
DX: Z01.812 Encounter for preprocedural laboratory examination (principal); Z20.828 Contact with and (suspected) exposure to other viral communicable diseases
CPT/HCPCS: 87635; C9803; U0003

== ENCOUNTER 2020-05-29 10:46 | Outpatient (CLI) | payer MEDICARE, OTHER, SELFPAY ==
[2020-05-29 11:11] LABS: Basophils Absolute Auto 0.1 K/mm3 (0.0-0.1); Basophils Percent Auto 1.2 % (0.2-1.2); Eosinophils Absolute Auto 0.3 K/mm3 (0-0.3); Eosinophils Percent Auto 5.2 % (0-4.4); Hematocrit 31.7 % (37.0-47.0); Hemoglobin 9.2 g/dL (12.0-15.0); Immature Granulocyte Absolute 0.03 K/mm3 (0.00-0.031); Immature Granulocyte Percent A 0.5 % (0-0.5); Lymphocytes Absolute Auto 1.02 K/mm3 (0.9-3.2); Lymphocytes Percent Auto 17.7 % (18.3-44.2); Mean Corpuscular Volume 72.2 fl (80-100); Mean Platelet Volume 10.4 fl (7.4-10.4); Monocytes Absolute Auto 0.4 K/mm3 (0.1-0.6); Monocytes Percent Auto 6.9 % (2.6-8.5); Neutrophils Absolute Auto 3.9 K/mm3 (1.3-6.7); Neutrophils Percent Auto 68.5 % (45.5-73.1); Platelet Count Result 163 k/mm3 (150-375); Red Blood Count 4.39 M/mm3 (4.2-5.4); Red Cell Distribution Width 18.3 % (11.5-14.5); White Blood Count 5.8 K/mm3 (4.5-10.0)
[2020-05-29 11:24] LABS: Alanine Aminotransferase 40 U/L (4-35); Albumin Level 3.6 g/dL (3.5-5.1); Alkaline Phosphatase 130 U/L (38-126); Anion Gap 3 mmol/L (8-16); Aspartate Amino Transferase 31 U/L (14-36); Bilirubin,Total 0.4 mg/dL (0.2-1.3); Blood Urea Nitrogen 30 mg/dL (7-17); Calcium 8.8 mg/dL (8.4-10.2); Carbon Dioxide 30 mmol/L (22-30); Chloride 104 mmol/L (98-107); Estimated Glomerular Filt Rate > 60; Glucose 329 mg/dL (65-105); Sodium 137 mmol/L (137-145)
[2020-05-29 11:28] LABS: Hemoglobin A1C 8.4 % (<5.7)
[2020-05-29 11:40] LABS: Anisocytosis 1+ (NORMAL); Hypochromasia 1+ (NORMAL); Platelet Estimate Adequate (Adequate)
== END 2020-05-29 10:47 | disposition home or self-care (01) ==
LOC: ANHLAB 10:48
PROVIDERS: PCP Internal Medicine; Visit Provider Internal Medicine
DX: E11.49 Type 2 diabetes mellitus with other diabetic neurological complication (principal); I50.9 Heart failure, unspecified; Z79.4 Long term (current) use of insulin
CPT/HCPCS: 36415; 80053; 83036; 85025

== ENCOUNTER 2020-06-01 11:41 | Emergency (ER) | payer MEDICARE, OTHER, SELFPAY ==
--- NOTE | ~2020-06-01 | XR_ITS ---
XR chest 1V portable DATE: 06/01/2020 14:40 INDICATION: Dizziness TECHNIQUE: Portable upright AP chest on 06/01/2020 at 1443 hours COMPARISON: 09/04/2019 CT pulmonary scan 04/20/2019 2 view chest FINDINGS: Heart size appears within normal range. There is mild aortic calcification and tortuosity. No hilar or mediastinal enlargement is evident. The lungs are clear of infiltrate or consolidation. No pleural effusion or pulmonary vascular congest ion or pneumothorax. Osteopenia. IMPRESSION: No active cardiopulmonary disease or significant change since 04/20/2019 Reviewed, dictated and finalized at location A. ESSOR OF ART HISTORY
--- NOTE | ~2020-06-01 | CT_ITS ---
EXAMINATION: CT brain wo con DATE: 06/01/2020 16:33 INDICATION: Dizziness. TECHNIQUE: Computed tomography (CT) of the head was performed without intravenous contrast. The mA wa s adjusted according to patient size. Iterative reconstruction technique was employed. The dose-lengt h product was 605.33 mGy-cm. COMPARISON: Head CT 09/29/2018 FINDINGS: There is no intracranial hemorrhage, acute infarction, or abnormal intracranial mass lesion . The ventricles are normal in size. Vertebral body heights are normal. There is mild mucosal thicken ing in the ethmoid sinuses. The mastoid air cells are normal. IMPRESSION: 1. Normal brain. Reviewed, dictated and finalized at location A. WORKER IMPRESSION: 1. Normal brain.
[2020-06-01 12:02] VITALS: BP 107/58; PULSE 81; RESP 20; TEMP 36.9; O2SAT 97
--- NOTE | 2020-06-01 12:04 | ECG_ITS ---
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
[2020-06-01 12:13] LABS: Glucose Point of Care 347 (65-105)
[2020-06-01 12:31] LABS: Basophils Absolute Auto 0.1 K/mm3 (0.0-0.1); Basophils Percent Auto 0.7 % (0.2-1.2); Eosinophils Absolute Auto 0.4 K/mm3 (0-0.3); Eosinophils Percent Auto 4.9 % (0-4.4); Hematocrit 31.3 % (37.0-47.0); Hemoglobin 9.1 g/dL (12.0-15.0); Immature Granulocyte Absolute 0.02 K/mm3 (0.00-0.031); Immature Granulocyte Percent A 0.3 % (0-0.5); Lymphocytes Percent Auto 12.1 % (18.3-44.2); Mean Corpuscular HGB Conc 29.1 g/dl (32-36); Mean Corpuscular Hemoglobin 21.4 pg (26-34); Mean Corpuscular Volume 73.5 fl (80-100); Mean Platelet Volume 10.6 fl (7.4-10.4); Monocytes Absolute Auto 0.5 K/mm3 (0.1-0.6); Neutrophils Absolute Auto 5.6 K/mm3 (1.3-6.7); Platelet Count Result 184 k/mm3 (150-375); Red Blood Count 4.26 M/mm3 (4.2-5.4); Red Cell Distribution Width 18.8 % (11.5-14.5); White Blood Count 7.4 K/mm3 (4.5-10.0)
[2020-06-01 12:34] LABS: Hypochromasia 2+ (NORMAL); Platelet Estimate Adequate (Adequate)
[2020-06-01 12:38] LABS: Anion Gap 6 mmol/L (8-16); Blood Urea Nitrogen 27 mg/dL (7-17); Calcium 8.8 mg/dL (8.4-10.2); Carbon Dioxide 28 mmol/L (22-30); Chloride 103 mmol/L (98-107); Estimated CRCL calculation 78 ml/min; Estimated Glomerular Filt Rate > 60; Glucose 340 mg/dL (65-105); Potassium 4.3 mmol/L (3.4-5.0); Sodium 137 mmol/L (137-145)
--- NOTE | 2020-06-01 14:39 | ED.GENADULT ---
HPI - General Adult General Chief complaint: Weakness Stated complaint: high blood sugar Time Seen by Provider: 06/01/20 14:09 Source: patient Mode of arrival: ambulatory Limitations: no limitations History of Present Illness HPI narrative: Patient is a 65-year-old female who presents to emergency department for evaluation of dizziness and fatigue that have been present for the last week patient notes that she had approximately a week ago aortic valve surgery at [facility] and has felt this way since the surgery. Patient also notes she has recently had difficulty managing her blood sugars patient know she has been compliant with her medications which include Xarelto. Related Data Home Medications Medication Instructions Recorded Confirmed albuterol sulfate 90 mcg/actuation 2 puff INHALATION Q4-6H PRN gm 05/26/19 05/29/20 aerosol inhaler sacubitril 24 mg-valsartan 26 mg 0.5 tablet PO BID 07/21/19 05/29/20 tablet Combivent Respimat 1 puff INHALATION QID 08/19/19 03/26/20 acetaminophen [Tylenol] 650 mg PO QID PRN 09/04/19 05/29/20 aspirin 81 mg tablet,delayed 81 mg PO DAILY 05/29/20 05/29/20 release atorvastatin 40 mg tablet 40 mg PO DAILY 05/29/20 05/29/20 budesonide-formoterol HFA 160 2 puff INHALATION BID g 05/29/20 05/29/20 mcg-4.5 mcg/actuation aerosol inhaler carvedilol 12.5 mg tablet 12.5 mg PO BID tablet 05/29/20 05/29/20 ropinirole 3 mg tablet 3 mg PO BID tablet 05/29/20 05/29/20 Allergies Allergy/AdvReac Type Severity Reaction Status Date / Time latex Allergy Severe HIVES Verified 05/29/20 09:08 Penicillins Allergy Severe HIVES Verified 05/29/20 09:08 cephalexin [From Keflex] Allergy Diarrhea Verified 05/29/20 09:08 diphenhydramine AdvReac Intermediate JERKY/JUMPY, Verified 05/29/20 09:08 GO CRAZY IN MY SKIN hydrocodone AdvReac Intermediate skin Verified 05/29/20 09:08 itchiness codeine AdvReac Mild NAUSEA/VOMI Verified 05/29/20 09:08 TING Review of Systems Review of Systems: All systems reviewed & are unremarkable except as noted in HPI and below PMFSH Past Medical History Medical History Anisocoria Asthma Atrial fibrillation Bipolar disorder Celiac disease CHF (congestive heart failure) Mixed COPD (chronic obstructive pulmonary disease) Coronary artery disease Depression Diabetes mellitus with neurologic complication, with long-term current use of insulin GERD (gastroesophageal reflux disease) Hyperlipidemia Hypertension Influenza A Kidney stones Multiple with at least 2 surgeries. Mitral valve regurgitation Moderate Obesity History of gastric bypass. BMI 43 Peripheral neuropathy RLS (restless legs syndrome) Sleep apnea Thyroid disease Patient no longer takes thyroid medicine. Type 2 diabetes mellitus without complications The patient has an insulin pump. Surgical History Surgical History H/O section H/O gastric bypass H/O: hysterectomy History of bladder surgery History of carpal tunnel release of both wrists History of cholecystectomy History of cystoscopy History of esophagogastroduodenoscopy (EGD) History of lithotripsy History of total right knee replacement (TKR) Multiple kidney stones Surgery X2 Family History Family History (Updated 02/24/20 @ 10:33 by Betty Deluca, [facility]) Father Diabetes mellitus Acute myocardial infarction Mother Family history of peptic ulcer Family history of chronic obstructive pulmonary disease, Onset Age: 92 CHF (congestive heart failure) Daughter Cancer Other Cerebrovascular accident Family history of arthritis Family history of cardiovascular disease Family history of congestive heart failure Family history of mental disorder Social History Social History Social History: The dele
[2020-06-01 15:03] VITALS: BP 136/57; PULSE 74
[2020-06-01 15:04] VITALS: BP 148/80; PULSE 83
[2020-06-01 15:07] VITALS: PULSE 76
[2020-06-01 15:12] LABS: INR 0.9
[2020-06-01 15:13] LABS: Partial Thromboplastin Time 20.3 SECONDS (22.3-36.8)
[2020-06-01] MEDS: MECLIZINE HCL 25 MG TABLET PO (15:13)
[2020-06-01 15:25] LABS: Troponin I < 0.012 ng/mL (0.000-0.034)
[2020-06-01 15:30] VITALS: BP 138/63; PULSE 76; RESP 12; O2SAT 100
[2020-06-01 15:56] LABS: Add Urine Microscopic? YES; Appearance Urine Clear (Clear); Bacteria Urine Trace /hpf; Bilirubin Urine Negative (Negative); Blood Urine Negative (Negative); Color Urine Straw (Yellow); Glucose Urine UA 3+ mg/dL (Negative); Ketones Urine Negative (Negative); Leukocyte Esterase Ur Negative LEU/UL (Negative); Mucus Urine Rare /lpf; Nitrate Urine Negative (Negative); Protein Urine Negative (Negative); RBC Urine 0-2 /hpf (0-2); Specific Grav Ur 1.026 (1.001-1.035); Squamous Epithelial Cell Urine Few /hpf (Few); Urobilinogen Urine Negative mg/dL (<2.0); WBC Urine 0-3 /hpf
[2020-06-01] MEDS: SODIUM CHLORIDE 0.9% IV 1,000 ML 999 ML IV CONT (16:18)
[2020-06-01 17:43] VITALS: BP 150/82; PULSE 76; RESP 14; O2SAT 100
[2020-06-01 17:43] LABS: Glucose Point of Care 212 (65-105)
== END 2020-06-01 18:02 | disposition home or self-care (01) ==
PROVIDERS: Emergency Medicine Emergency Medical Services; Emergency Provider Emergency Medicine; PCP Internal Medicine
DX: R42 Dizziness and giddiness (principal); E11.65 Type 2 diabetes mellitus with hyperglycemia; I48.91 Unspecified atrial fibrillation; J44.9 Chronic obstructive pulmonary disease, unspecified; K90.0 Celiac disease; E11.42 Type 2 diabetes mellitus with diabetic polyneuropathy; K21.9 Gastro-esophageal reflux disease without esophagitis; E78.5 Hyperlipidemia, unspecified; I10 Essential (primary) hypertension; I34.0 Nonrheumatic mitral (valve) insufficiency; E66.8 Other obesity; Z68.41 Body mass index [BMI] 40.0-44.9, adult; G25.81 Restless legs syndrome; Z79.01 Long term (current) use of anticoagulants; Z87.442 Personal history of urinary calculi; Z79.4 Long term (current) use of insulin; Z96.41 Presence of insulin pump (external) (internal); Z98.84 Bariatric surgery status; Z96.651 Presence of right artificial knee joint; I45.10 Unspecified right bundle-branch block; R94.31 Abnormal electrocardiogram [ECG] [EKG]
CPT/HCPCS: 36415; 70450; 71045; 80048; 81001; 82948; 84484; 85025; 85610; 85730; 93005; 96360; 99284; A9270; J7030

== ENCOUNTER 2020-07-05 14:00 | Outpatient (RCR) | payer MEDICARE, OTHER, SELFPAY ==
--- NOTE | 2020-06-22 10:38 | PTOPEVAL ---
PHYSICAL THERAPY EVALUATION AND PLAN OF CARE 06-22-2020 Thank you for referring Charlene Chen to [facility].? She is scheduled to be seen for therapy? 3x/week for 6 weeks. Please review, sign, date and return this plan of care KT. I agree with and certify that the following plan of care is medically necessary. Referring Physician Date Attending Provider: Radhika Mercado NP PT Outpatient Evaluation Document 06/22/20 09:30 TISHA (Rec: 06/22/20 10:38 TISHA [id number]) Outpatient Past Medical History Past Medical History Source of Past Medical History Patient,Recalled from Previous Visit, Confirmed with Patient /Family Neurological History Hx Other Neurological Disorders Yes: neuropathy B legs; vertigo-worse since cardiac surg Cardiovascular History Hx Atrial Fibrillation Yes Hx Congestive Heart Failure Yes Hx Hypercholesterolemia Yes Hx Mitral Valve Prolapse Yes: surgery May 2020-no restrictions Hx Myocardial Infarction Yes Hx Other Cardiac Disorders Yes Respiratory History Hx Bronchitis Yes Hx Chronic Obstructive Pulmonary Disease Yes (COPD) Hx Pneumonia Yes Hx Sleep Apnea Yes: have CPAP, not use consistantly Gastrointestinal History Hx Gastric Bypass Surgery Yes: about 15 yr ago Hx Irritable Bowel Yes Genitourinary History Hx Kidney Stones Yes: surgery- still have issues with additional stones Musculoskeletal History Hx Arthritis Yes: hands, legs hurt Hx Back Pain Yes: back pain and sciatica L LE Hx Joint Replacement Yes: TKR R Hx Other Musculoskeletal Disorders Yes: obesity 260 #;restless leg syndrome Hematological History Hx Hematological Disorders No Significant History Endocrine History Hx Diabetes Yes: issues with control, has been high Hx Insulin Pump Yes: having issues with the pump, blood sugar 400-500 HEENT History Hx HEENT Disorders No Significant History Integumentary History Hx Skin Disorders No Significant History Reproductive History Hx Hysterectomy Yes Hx Post Menopausal Yes Psychosocial History Hx Depression Yes: off meds now,just finished with therapist Pain History History of Any Previous or Ongoing No Significant History Instance of Pain Anesthesia History Hx Anesthesia Li
--- NOTE | 2020-06-22 10:57 | PCPTNOTE ---
during evaluation pt signed a consent and her info was faxed to [facility] for authorization for a home intermittent compression pump. Sandra stated that she has talked with someone at the pump company about the pump and she thought she was getting one today. Discussed with her the process for obtaining a home pump.
--- NOTE | 2020-06-27 10:31 | PCPTNOTE ---
pt called and canceled this AM appointment due to back pain. Called her and offered her a later day appointment; she was still having back pain and difficulty moving around, unable to make a later time. Discussed with her to remove compression wraps, due to not having her next appt for 5 days.
--- NOTE | 2020-07-05 12:40 | PCPTNOTE ---
pt no showed, . Called pt, Daughter stated she was upset with the way her hair turned out from them dying it last night and had gone to the store. Asked if pt could call us back , when she got home.
--- NOTE | 2020-07-09 09:11 | PCPTNOTE ---
Patient called & cancelled scheduled appointment this date due to illness. talked to Charlene and patient stated her COPD was acting up and she was going to call her doctor. Pt wanted to know if she should remove her compression wrapping from her left leg. Instructed pt to take off wraps ans apply older compression garement to leg. ]
--- NOTE | 2020-07-10 08:08 | PCPTNOTE ---
Pt called and stated she went to the Dr. yesterday, is now on medication including prednisone for her breathing, pt reports pereira she took off her wraps yesterday from that her leg had a red rash explained it as a blood rash . Inquired: no warmth, weeping or blisters present on her leg.. Pt has not put any compression on . told pt to continue with this, try to keep legs elevated as much as she can and we will see her tomorrow for her visit. Pt wanted to send us a picture on her personal phones to our personal phone , explained that we can not do this.
--- NOTE | 2020-07-11 14:37 | PCPTNOTE ---
pt canceled today's appt;
--- NOTE | 2020-07-13 15:42 | PCPTNOTE ---
late entry: 07-12-20: pt called and canceled all appointments. Stated she was ill and wants to wait until better to resume PT. She will get a new order and return at later time.
--- NOTE | 2020-08-10 13:11 | PCPTNOTE ---
PHYSICAL THERAPY DISCHARGE 08-10-2020 Attending Provider: Radhika Mercado NP Patient:Charlene Chen Date of :1955 Mrs. Chen called and canceled all of her scheduled appointments on July 12, stated she was not feeling well. She has not returned for any further treatments, therefore she will be discharged at this time. She had received 4 PT sessions, for the diagnosis of lymphedema. The goals were not assessed. Thank you for referring Charlene to [facility]. Please review, sign, date and return this discharge summary KT. I have been updated about the patient's current status and I agree with discharge from the above service at this time. Referring Physician Date
== END 2020-08-13 11:54 | disposition home or self-care (01) ==
LOC: ANHPT 14:00
PROVIDERS: PCP Internal Medicine; Referring Provider Nurse Practitioner; Visit Provider Nurse Practitioner
DX: I89.0 Lymphedema, not elsewhere classified (principal); R42 Dizziness and giddiness
CPT/HCPCS: 29581; 97140; 97161

== ENCOUNTER 2020-07-09 11:36 | Outpatient (CLI) | payer MEDICARE, SELFPAY ==
--- NOTE | ~2020-07-09 | XR_ITS ---
XR chest 2V DATE: 07/09/2020 11:58 INDICATION: Shortness of breath. COPD. TECHNIQUE: PA and lateral views COMPARISON: 06/01/2020 portable AP chest 09/04/2019 CTA chest, abdomen and pelvis FINDINGS: Heart size is within normal range. There is mild aortic unfolding. No hilar or mediastinal enlargement. No pulmonary infiltrate or consolidation, pleural effusion or pulmonary vascular congest ion or pneumothorax is detected. A radiopaque device is noted overlying the left heart. IMPRESSION: No active cardiopulmonary disease Reviewed, dictated and finalized at location B. ARD PEELER
== END 2020-07-09 11:37 | disposition home or self-care (01) ==
PROVIDERS: PCP Internal Medicine; Visit Provider Nurse Practitioner
DX: R06.02 Shortness of breath (principal)
CPT/HCPCS: 71046

== ENCOUNTER 2020-07-14 15:05 | Emergency (ER) | payer MEDICARE, SELFPAY ==
--- NOTE | ~2020-07-14 | XR_ITS ---
EXAMINATION: XR chest 1V portable DATE: 07/14/2020 16:03 INDICATION: Shortness of breath and cough. TECHNIQUE: A single frontal view of the chest was obtained. COMPARISON: Chest 2 views 07/09/2020, chest CT 09/04/2019 FINDINGS: There is no pneumonia, pleural effusion, or pneumothorax. Cardiomegaly is noted. A radiopaq ue implant overlies the heart. IMPRESSION: 1. Cardiomegaly. Reviewed, dictated and finalized at location A. ENTIVE MAINTENANCE ENGINEER IMPRESSION: 1. Cardiomegaly.
[2020-07-14 15:03] VITALS: BP 132/74; PULSE 112; RESP 22; TEMP 36.8; O2SAT 98
[2020-07-14 15:43] VITALS: BP 113/61; PULSE 93; RESP 20; O2SAT 96
--- NOTE | 2020-07-14 15:55 | ED.SOB ---
HPI - SOB/Dyspnea General Chief Complaint: Shortness of Breath/Dyspnea Stated Complaint: SOB Time Seen by Provider: 07/14/20 15:52 Source: patient Mode of arrival: EMS Limitations: no limitations History of Present Illness HPI Narrative: Patient is 65-year-old female who presents with Covid symptoms for the last 4 days has a daughter she lives with that has Covid patient presents per EMS noting dyspnea worse with activity and movement history of COPD patient denies vomiting or diarrhea saw her primary care for this and was given medications to include inhalers also has a nebulizer. On arrival patient in the room in no distress Related Data Home Medications Medication Instructions Recorded Confirmed sacubitril 24 mg-valsartan 26 mg 0.5 tablet PO BID 07/21/19 07/09/20 tablet Combivent Respimat 1 puff INHALATION QID 08/19/19 07/09/20 acetaminophen [Tylenol] 650 mg PO QID PRN 09/04/19 07/09/20 aspirin 81 mg tablet,delayed 81 mg PO DAILY 05/29/20 07/09/20 release atorvastatin 40 mg tablet 40 mg PO DAILY 05/29/20 07/09/20 carvedilol 12.5 mg tablet 12.5 mg PO BID tablet 05/29/20 07/09/20 ropinirole 3 mg tablet 3 mg PO BID tablet 05/29/20 07/09/20 potassium chloride 20 mEq 20 meq PO DAILY 07/09/20 07/09/20 tablet,extended release(part/cryst) Allergies Allergy/AdvReac Type Severity Reaction Status Date / Time latex Allergy Severe HIVES Verified 07/14/20 15:08 Penicillins Allergy Severe HIVES Verified 07/14/20 15:08 cephalexin [From Keflex] Allergy Diarrhea Verified 07/14/20 15:08 diphenhydramine AdvReac Intermediate JERKY/JUMPY, Verified 07/14/20 15:08 GO CRAZY IN MY SKIN hydrocodone AdvReac Intermediate skin Verified 07/14/20 15:08 itchiness codeine AdvReac Mild NAUSEA/VOMI Verified 07/14/20 15:08 TING Review of Systems Review of Systems: All systems reviewed & are unremarkable except as noted in HPI and below PMFSH Past Medical History Medical History Anisocoria Asthma Atrial fibrillation Bipolar disorder Celiac disease CHF (congestive heart failure) Mixed COPD (chronic obstructive pulmonary disease) Coronary artery disease Depression Diabetes mellitus with neurologic complication, with long-term current use of insulin GERD (gastroesophageal reflux disease) Hyperlipidemia Hypertension Influenza A Kidney stones Multiple with at least 2 surgeries. Mitral valve regurgitation Moderate Obesity History of gastric bypass. BMI 43 Peripheral neuropathy RLS (restless legs syndrome) Sleep apnea Thyroid disease Patient no longer takes thyroid medicine. Type 2 diabetes mellitus without complications The patient has an insulin pump. Surgical History Surgical History H/O section H/O gastric bypass H/O: hysterectomy History of bladder surgery History of carpal tunnel release of both wrists History of cholecystectomy History of cystoscopy History of esophagogastroduodenoscopy (EGD) History of lithotripsy History of total right knee replacement (TKR) Multiple kidney stones Surgery X2 Family History Family History (Updated 02/24/20 @ 10:33 by Betty Isaac, [facility]) Father Diabetes mellitus Acute myocardial infarction Mother Family history of peptic ulcer Family history of chronic obstructive pulmonary disease, Onset Age: 92 CHF (congestive heart failure) Daughter Cancer Other Cerebrovascular accident Family history of arthritis Family history of cardiovascular disease Family history of congestive heart failure Family history of mental disorder Social History Social History Social History: The patient lives with her . She desires to be a full code. Her is the power sports attorney. Her daughter and grandson also live with her. Nonsmoker nondrinker. She h
[2020-07-14 16:16] VITALS: BP 111/64; PULSE 91; RESP 22; O2SAT 97
[2020-07-14 16:46] VITALS: BP 123/56; PULSE 86; RESP 20; O2SAT 97
[2020-07-14] MEDS: DEXAMETHASONE SOD PHOS INJ 4 MG/ML VIAL 6 MG IV PUSH (17:33)
[2020-07-14 18:45] VITALS: BP 122/66; PULSE 80; RESP 20; O2SAT 97
== END 2020-07-14 18:49 | disposition home or self-care (01) ==
PROVIDERS: Emergency Provider Emergency Medicine; PCP Internal Medicine
DX: J06.9 Acute upper respiratory infection, unspecified (principal); Z20.822 Contact with and (suspected) exposure to COVID-19; J44.9 Chronic obstructive pulmonary disease, unspecified; Z79.82 Long term (current) use of aspirin; I48.91 Unspecified atrial fibrillation; K90.0 Celiac disease; I50.9 Heart failure, unspecified; I25.10 Atherosclerotic heart disease of native coronary artery without angina pectoris; E11.49 Type 2 diabetes mellitus with other diabetic neurological complication; E11.42 Type 2 diabetes mellitus with diabetic polyneuropathy; Z79.4 Long term (current) use of insulin; Z96.41 Presence of insulin pump (external) (internal); E78.5 Hyperlipidemia, unspecified; I11.0 Hypertensive heart disease with heart failure; I34.0 Nonrheumatic mitral (valve) insufficiency; E66.9 Obesity, unspecified; Z68.41 Body mass index [BMI] 40.0-44.9, adult; G47.30 Sleep apnea, unspecified; Z98.84 Bariatric surgery status; Z87.442 Personal history of urinary calculi; Z96.651 Presence of right artificial knee joint
CPT/HCPCS: 71045; 96374; 99284; J1100

== ENCOUNTER → 2020-08-28 15:47 | Outpatient (CLI) | payer MEDICARE, SELFPAY ==
--- NOTE | ~2020-08-28 | XR_ITS ---
XR lumbar spine 2-3V DATE: 08/28/2020 16:09 INDICATION: Radiculopathy TECHNIQUE: Standing AP and lateral and coned lateral lumbosacral views COMPARISON: None FINDINGS: Right sided battery pack with right sacral neural foraminal lead. Diffuse osteopenia. No fracture or bone destruction of the lumbar spine is evident. The included lower thoracic and lumba r pedicles are intact. There is degenerative change at the apophyseal joints with associated minimal grade 1 anterolisthesis at L4-5. There is moderately severe degenerative disc disease at L5-S1. There is abdominal aortic calcification. Status post cholecystectomy. Postoperative changes of the proximal stomach. Prominent amount of fecal material in the right colon. IMPRESSION: Diffuse osteopenia Degenerative change at the apophyseal joints with associated minimal grade 1 anterolisthesis at L4-5 Moderately severe degenerative disc disease at L5-S1 Right sacral neural foraminal lead Reviewed, dictated and finalized at location A. OOR ADVERTISING LEASING AGENT IMPRESSION: Diffuse osteopenia Degenerative change at the apophyseal joints with associated minimal grade 1 an terolisthesis at L4-5 Moderately severe degenerative disc disease at L5-S1 Right sacral neural foraminal lead
== END ==
PROVIDERS: PCP Internal Medicine; Visit Provider Pain Medicine Interventional Pain Medicine
DX: M47.26 Other spondylosis with radiculopathy, lumbar region (principal); M47.27 Other spondylosis with radiculopathy, lumbosacral region; Z79.891 Long term (current) use of opiate analgesic; F41.1 Generalized anxiety disorder; M51.37 Other intervertebral disc degeneration, lumbosacral region; M85.88 Other specified disorders of bone density and structure, other site
CPT/HCPCS: 72100

== ENCOUNTER 2020-09-18 09:43 | Outpatient (CLI) | payer MEDICARE, SELFPAY ==
[2020-09-18 16:49] LABS: Anion Gap 5 mmol/L (8-16); Blood Urea Nitrogen 25 mg/dL (7-17); Carbon Dioxide 29 mmol/L (22-30); Chloride 106 mmol/L (98-107); Estimated Glomerular Filt Rate > 60; Glucose 200 mg/dL (65-105); Potassium 4.6 mmol/L (3.4-5.0); Sodium 140 mmol/L (137-145)
[2020-09-18 17:33] LABS: MALB Creatinine Ratio 14.8 mg/g (0-30); Microalbumin Urine Random 13.5 mg/L (0-16.7)
[2020-09-21 05:54] LABS: C-Peptide 1.15 ng/mL (0.80-3.85)
== END 2020-09-18 09:44 | disposition home or self-care (01) ==
PROVIDERS: PCP Internal Medicine; Visit Provider Internal Medicine Endocrinology, Diabetes & Metabolism
DX: E11.65 Type 2 diabetes mellitus with hyperglycemia (principal); Z79.4 Long term (current) use of insulin
CPT/HCPCS: 36415; 80048; 82043; 84681

== ENCOUNTER 2020-11-20 16:03 | Inpatient (IN) | payer MEDICARE, SELFPAY ==
[2020-11-20] VITALS (10 sets, daily range): BP systolic 120–151; BP diastolic 55–72; PULSE 91–110; RESP 15–20; TEMP 36.6–38.6; O2SAT 96–100; BMI 43.3
--- NOTE | ~2020-11-20 | US_ITS ---
EXAMINATION: US venous doppler [facility] DATE: 11/21/2020 17:31 INDICATION: Lower limb pain TECHNIQUE: Aragon scale images without and with compression and Doppler images of the bilateral lower e xtremity veins were obtained. COMPARISON: 02/24/2020 FINDINGS: The right common femoral vein, profunda femoral vein, femoral vein, popliteal vein, peroneal trunk, p osterior tibial veins, and greater saphenous vein are patent. The left peroneal vein is not identified. The left common femoral vein, profunda femoral vein, femora l vein, popliteal vein, posterior tibial veins, and greater saphenous vein are patent. IMPRESSION: 1. Patent bilateral lower extremity veins. No evidence of deep venous thrombosis. Left peroneal vein not identified. Reviewed, dictated and finalized at location A. IMPRESSION: 1. Patent bilateral lower extremity veins. No evidence of deep venous thrombosi s. Left peroneal vein not identified.
--- NOTE | ~2020-11-20 | US_ITS ---
EXAMINATION: US carotid duplex BI DATE: 11/24/2020 15:29 INDICATION: Near syncope TECHNIQUE: Grayscale, color Doppler, and pulsed Doppler images of the cervical carotid arteries were obtained. The degree of vessel stenosis is placed in one of the following categories: normal, <50%, 5 0-69%, >=70% but less than near-occlusion, near-occlusion, or total occlusion. Note that percent sten osis relative to normal distal artery lumen diameter is indirectly measured from velocity measurement s as described by Gregory, et al. Radiology 2003; [id number]:[id number]. COMPARISON: 08/31/2012 FINDINGS: RIGHT: The right common carotid artery (CCA) peak systolic velocity (PSV) is 83 cm/s. The right internal car otid artery (ICA) PSV is 66 cm/s. The right ICA end-diastolic velocity (EDV) is 24 cm/s. The right IC A/CCA PSV ratio is 0.8. Grayscale and color Doppler images yield an estimate of less than 50% diamete r reduction from plaque in the ICA. The external carotid artery (ECA) PSV is 67 cm/s. There is antegr santana flow in the right vertebral artery. LEFT: The left CCA PSV is 79 cm/s. The left ICA PSV is 57 cm/s. The left ICA EDV is 20 cm/s. The left ICA/C CA PSV ratio is 0.7. Grayscale and color Doppler images yield an estimate of less than 50% diameter r eduction from plaque in the ICA. The ECA PSV is 70 cm/s. There is antegrade flow in the left vertebra l artery. IMPRESSION: 1. <50% stenosis in the right internal carotid artery. 2. <50% stenosis in the left internal carotid artery. Reviewed, dictated and finalized at location A.
--- NOTE | 2020-11-20 16:55 | ECG_ITS ---
Measurements Intervals [place] Rate: 101 P: 49 MN: 199 QRS: 128 QRSD: 173 T: 7 QT: 380 QTc: 493 Interpretive Statements SINUS TACHYCARDIA RIGHT BUNDLE BRANCH BLOCK LEFT POSTERIOR FASCICULAR BLOCK BASELINE ARTIFACT- AVR, AVF, V3-V6 ABNORMAL ECG Electronically Signed On 11-20-2020 20:06:46 CDT by Narinder Roche D.O.
--- NOTE | 2020-11-20 16:58 | ED.SKABFB ---
HPI - Skin/Abscess/Foreign Bdy General Chief complaint: Skin/Abscess/Foreign Body Stated complaint: cellulitis/fever Time Seen by Provider: 11/20/20 16:44 History of Present Illness HPI narrative: 65 yo female w/ h/o DM, htn, COPD presents to the ED for cellulitis. She has had pain and swelling to the RLE for 2 days. Seen in cliic yesterday and started on antibiotics. Began having fevers last night. Pain is too severe to walk. She has had cellulitis in the left leg previously. No injury. Related Data Home Medications Medication Instructions Recorded Confirmed sacubitril 24 mg-valsartan 26 mg 0.5 tablet PO BID 07/21/19 11/20/20 tablet aspirin 81 mg tablet,delayed 81 mg PO DAILY 05/29/20 11/20/20 release ropinirole 3 mg tablet 3 mg PO HS tablet 05/29/20 11/20/20 budesonide-formoterol [Symbicort] 2 puff INHALATION Q12H PRN 11/20/20 11/20/20 carvedilol 25 mg PO BID 11/20/20 11/20/20 hydrocodone-acetaminophen See Rx Instructions .ROUTE .COMPLEX 11/20/20 11/20/20 insulin lispro [Humalog U-100 16 unit SUB-Q TID MDD 140U 11/20/20 11/20/20 Insulin] Allergies Allergy/AdvReac Type Severity Reaction Status Date / Time latex Allergy Severe HIVES Verified 11/20/20 21:15 Penicillins Allergy Severe HIVES Verified 11/20/20 21:15 cephalexin [From Keflex] Allergy Diarrhea Verified 11/20/20 21:15 diphenhydramine AdvReac Intermediate JERKY/JUMPY, Verified 11/20/20 21:15 GO CRAZY IN MY SKIN codeine AdvReac Mild NAUSEA/VOMI Verified 11/20/20 21:15 TING Review of Systems Review of Systems: All systems reviewed & are unremarkable except as noted in HPI and below Constitutional: Constitutional: Reports chills and Reports fever(s) Eyes: Eyes: Reports no additional eye complaints Cardiovascular: Cardiovascular: Denies chest pain Respiratory: Respiratory: Reports dyspnea Gastrointestinal: Gastrointestinal: Denies abdominal pain, Denies nausea and Denies vomiting Genitourinary: Genitourinary: Reports no additional female genitourinary complaints Musculoskeletal: Musculoskeletal: Denies back pain Neurologic: Reports system reviewed and no additional complaints, except as documented [facility] Past Medical History Medical History (Updated 11/27/20 @ 04:38 by Gregory Serrato MD) ANDREA (acute kidney injury) Anisocoria Asthma Atrial fibrillation Bipolar disorder Celiac disease CHF (congestive heart failure) COPD (chronic obstructive pulmonary disease) Coronary artery disease Diabetes mellitus with neurologic complication, with long-term current use of insulin GERD (gastroesophageal reflux disease) Influenza A Kidney stones Multiple with at least 2 surgeries. Peripheral neuropathy RLS (restless legs syndrome) Syncope Thyroid disease Patient no longer takes thyroid medicine. Type 2 diabetes mellitus without complications The patient has an insulin pump. Surgical History Surgical History H/O section H/O gastric bypass H/O: hysterectomy History of bladder surgery History of carpal tunnel release of both wrists History of cholecystectomy History of cystoscopy History of esophagogastroduodenoscopy (EGD) History of lithotripsy History of total right knee replacement (TKR) Multiple kidney stones Surgery X2 Family History Family History Father Diabetes mellitus Acute myocardial infarction Mother Family history of peptic ulcer Family history of chronic obstructive pulmonary disease, Onset Age: 92 CHF (congestive heart failure) Daughter Cancer Other Cerebrovascular accident Family history of arthritis Family history of cardiovascular disease Family history of congestive heart failure Family history of mental disorder Social History Social History Social History: The patient lives with he
[2020-11-20] MEDS: SODIUM CHLORIDE 0.9% IV 1,000 ML 999 ML IV CONT (17:28)
[2020-11-20 17:31] LABS: Basophils Absolute Auto 0.1 K/mm3 (0.0-0.1); Basophils Percent Auto 0.5 % (0.2-1.2); Eosinophils Percent Auto 0.3 % (0-4.4); Hematocrit 27.6 % (37.0-47.0); Immature Granulocyte Absolute 0.07 K/mm3 (0.00-0.031); Immature Granulocyte Percent A 0.7 % (0-0.5); Lymphocytes Absolute Auto 0.75 K/mm3 (0.9-3.2); Lymphocytes Percent Auto 7.1 % (18.3-44.2); Mean Corpuscular Hemoglobin 19.6 pg (26-34); Mean Corpuscular Volume 67.6 fl (80-100); Mean Platelet Volume 9.9 fl (7.4-10.4); Monocytes Absolute Auto 0.8 K/mm3 (0.1-0.6); Monocytes Percent Auto 7.7 % (2.6-8.5); Neutrophils Absolute Auto 8.9 K/mm3 (1.3-6.7); Neutrophils Percent Auto 83.7 % (45.5-73.1); Platelet Count Result 210 k/mm3 (150-375); Red Blood Count 4.08 M/mm3 (4.2-5.4); Red Cell Distribution Width 18.2 % (11.5-14.5); White Blood Count 10.6 K/mm3 (4.5-10.0)
[2020-11-20 17:42] LABS: INR 1.2; Partial Thromboplastin Time 41.6 SECONDS (22.3-36.8); Prothrombin Time 16.2 Seconds (11.1-14.7)
[2020-11-20 17:44] LABS: Lactic Acid Reflex 1.1 mmol/L (0.7-2.1)
[2020-11-20 17:54] LABS: Alanine Aminotransferase 25 U/L (4-35); Albumin Level 3.6 g/dL (3.5-5.1); Alkaline Phosphatase 121 U/L (38-126); Anion Gap 6 mmol/L (8-16); Aspartate Amino Transferase 28 U/L (14-36); Bilirubin,Total 0.6 mg/dL (0.2-1.3); Blood Urea Nitrogen 37 mg/dL (7-17); Calcium 8.8 mg/dL (8.4-10.2); Carbon Dioxide 28 mmol/L (22-30); Chloride 99 mmol/L (98-107); Estimated CRCL calculation 46 ml/min; Estimated Glomerular Filt Rate 38; Glucose 298 mg/dL (65-105); Potassium 3.9 mmol/L (3.4-5.0); Sodium 133 mmol/L (137-145)
[2020-11-20 18:01] LABS: Platelet Estimate Adequate (Adequate)
[2020-11-20 18:02] LABS: Anisocytosis 2+ (NORMAL); Hypochromasia 1+ (NORMAL)
[2020-11-20 18:10] LABS: CRP 26.9 mg/dL (<1.0)
[2020-11-20 18:15] LABS: Add Urine Microscopic? YES; Appearance Urine Clear (Clear); Bilirubin Urine Negative (Negative); Blood Urine 1+ (Negative); Color Urine Straw (Yellow); Glucose Urine UA 3+ mg/dL (Negative); Ketones Urine Trace mg/dL (Negative); Leukocyte Esterase Ur Negative LEU/UL (Negative); Nitrate Urine Negative (Negative); Protein Urine Negative (Negative); RBC Urine 0-2 /hpf (0-2); Specific Grav Ur 1.008 (1.001-1.035); Urobilinogen Urine Negative mg/dL (<2.0); WBC Urine 0-3 /hpf
--- NOTE | 2020-11-20 21:08 | ADMGEN ---
This patient, Charlene Chen, was admitted to Medical Room 342-01. Patient/family oriented to hospital policies and general routines including ID bracelet, bed and alarms, visiting hours, pain management, procedures, bathroom and other care routines, personal items, smoking policy, room service/diet, and visiting hours. Information on how to activate the Rapid Response Team has been discussed. Patient/Family are encouraged to report perceived risks to care and to ask questions if they do not understand what they are told or what they should do.
[2020-11-20] MEDS: LACTATED RINGERS 1,000 ML 125 ML IV CONT (21:13)
[2020-11-20] MEDS: ALBUTEROL SULFATE NEB 2.5 MG/0.5 ML INH 5 MG INHALATION (21:20)
[2020-11-20] MEDS: IPRATROPIUM BR 0.02% INH SOLN 0.5 MG/2.5 ML VIAL INHALATION (21:20)
[2020-11-20 21:42] LABS: Glucose Point of Care 302 mg/dl (65-105)
--- NOTE | 2020-11-20 22:09 | PM.IMHP ---
H&P: HPI History of Present Illness Date/Time: 11/20/20 22:09 Chief Complaint: right leg effie ad swelling and redness Narrative: 65 yo female w/ h/o DM, htn, COPD presents to the ED for cellulitis of riht leg. she has been feeelig warm ad heavy on the leg sice past few days, it started gettin red. seen pcp yeserday ad was given doxycycline. she started having fever ad hence came to the ED for evaluation. no injury of the feet recely noted. Review of Systems Review of Systems: Narrative: - CONSTITUTIONAL: Denies weight loss, reprots fever and chills. - HEENT: Denies changes in vision and hearing - RESPIRATORY: Denies SOB and cough. - CV: Denies palpitations and CP. - GI: Denies abdominal pain, nausea, vomiting and diarrhea. - : Denies dysuria and urinary frequency. - MSK: Denies myalgia and joint pain. - SKIN: Denies rash and pruritus. - NEUROLOGICAL: Denies headache and syncope. - PSYCHIATRIC: Denies recent changes in mood. Denies anxiety and depression. All systems reviewed & are unremarkable except as noted in HPI and below Constitutional: Constitutional: Reports fatigue and Reports weakness Neurologic: Reports weakness Endocrine: Endocrine: Reports fatigue PMFSH Past Medical History Medical History Anisocoria Asthma Atrial fibrillation Bipolar disorder Celiac disease CHF (congestive heart failure) Mixed COPD (chronic obstructive pulmonary disease) Coronary artery disease Depression Diabetes mellitus with neurologic complication, with long-term current use of insulin GERD (gastroesophageal reflux disease) Hyperlipidemia Hypertension Influenza A Kidney stones Multiple with at least 2 surgeries. Mitral valve regurgitation Moderate Obesity History of gastric bypass. BMI 43 Peripheral neuropathy RLS (restless legs syndrome) Sleep apnea Thyroid disease Patient no longer takes thyroid medicine. Type 2 diabetes mellitus without complications The patient has an insulin pump. Surgical History Surgical History H/O section H/O gastric bypass H/O: hysterectomy History of bladder surgery History of carpal tunnel release of both wrists History of cholecystectomy History of cystoscopy History of esophagogastroduodenoscopy (EGD) History of lithotripsy History of total right knee replacement (TKR) Multiple kidney stones Surgery X2 Family History Family History Father Diabetes mellitus Acute myocardial infarction Mother Family history of peptic ulcer Family history of chronic obstructive pulmonary disease, Onset Age: 92 CHF (congestive heart failure) Daughter Cancer Other Cerebrovascular accident Family history of arthritis Family history of cardiovascular disease Family history of congestive heart failure Family history of mental disorder Social History Social History Social History: The patient lives with her . She desires to be a full code. 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 Her daughter and grandson also live with her. Nonsmoker nondrinker. She has 3 children. Smoking status: Never smoker Second hand tobacco smoke exposure: Yes Alcohol intake: never Substance use: never Substance use type: does not use Gender identity (if verbalized by the patient): Female Spiritual care concerns: No Meds Home Medications and Allergies Home Medications Medication Instructions Recorded Confirmed Type sacubitril 24 mg-valsartan 26 mg 0.5 tablet PO BID 07/21/19 11/20/20 History tablet rivaroxaban 20 mg tablet 20 mg PO QPM #90 tablet 02/24/20 11/20/20 Rx aspirin 81 mg tablet,delayed 81 mg PO DAILY 05/29/20 11/20/20 History release ropinirole 3 mg tablet 3 mg PO HS tablet 05/29/2011/20
[2020-11-21] VITALS (20 sets, daily range): BP systolic 107–123; BP diastolic 45–61; PULSE 69–91; RESP 16–20; TEMP 36.4–37.7; O2SAT 97–100
[2020-11-21] MEDS: rOPINIRole HCL 1 MG TABLET 3 MG PO ×2 (00:32→20:41)
[2020-11-21] MEDS: carvediloL 25 MG TABLET PO ×3 (00:33→20:42)
[2020-11-21] MEDS: RIVAROXABAN 20 MG TABLET PO ×2 (00:33→17:37)
[2020-11-21] MEDS: PREGABALIN (*CRX) 75 MG CAPSULE 150 MG PO ×3 (00:33→20:40)
[2020-11-21] MEDS: IPRATROPIUM BR 0.02% INH SOLN 0.5 MG/2.5 ML VIAL INHALATION ×4 (03:53→21:09)
[2020-11-21] MEDS: ALBUTEROL SULFATE NEB 2.5 MG/0.5 ML INH 5 MG INHALATION ×4 (03:53→21:09)
[2020-11-21 05:57] LABS: Basophils Percent Auto 0.3 % (0.2-1.2); Eosinophils Absolute Auto 0.1 K/mm3 (0-0.3); Eosinophils Percent Auto 1.2 % (0-4.4); Hematocrit 21.8 % (37.0-47.0); Immature Granulocyte Absolute 0.04 K/mm3 (0.00-0.031); Immature Granulocyte Percent A 0.7 % (0-0.5); Lymphocytes Absolute Auto 0.63 K/mm3 (0.9-3.2); Lymphocytes Percent Auto 10.5 % (18.3-44.2); Mean Corpuscular HGB Conc 28.9 g/dl (32-36); Mean Corpuscular Hemoglobin 19.4 pg (26-34); Mean Corpuscular Volume 67.1 fl (80-100); Mean Platelet Volume 9.8 fl (7.4-10.4); Monocytes Absolute Auto 0.7 K/mm3 (0.1-0.6); Monocytes Percent Auto 12.3 % (2.6-8.5); Neutrophils Absolute Auto 4.5 K/mm3 (1.3-6.7); Platelet Count Result 168 k/mm3 (150-375); Red Blood Count 3.25 M/mm3 (4.2-5.4); Red Cell Distribution Width 18.2 % (11.5-14.5)
[2020-11-21 06:12] LABS: Anion Gap 3 mmol/L (8-16); Blood Urea Nitrogen 26 mg/dL (7-17); Calcium 8.4 mg/dL (8.4-10.2); Carbon Dioxide 29 mmol/L (22-30); Chloride 103 mmol/L (98-107); Estimated CRCL calculation 64 ml/min; Estimated Glomerular Filt Rate 56; Glucose 345 mg/dL (65-105); Potassium 3.6 mmol/L (3.4-5.0); Sodium 135 mmol/L (137-145)
[2020-11-21 06:59] LABS: Hemoglobin 6.3 g/dL (12.0-15.0)
[2020-11-21 07:01] LABS: Anisocytosis 2+ (NORMAL); Hypochromasia 3+ (NORMAL); Ovalocytes 1+ (NORMAL)
[2020-11-21] MEDS: HYDROcodone/acetaminophen (*CRX) 5-325 MG TABLET 2 TAB PO ×2 (07:01→17:40)
[2020-11-21 07:02] LABS: Stomatocytes 1+ (NORMAL)
[2020-11-21 07:07] LABS: Glucose Point of Care 293 mg/dl (65-105)
[2020-11-21 08:39] LABS: Platelet Estimate Adequate (Adequate)
[2020-11-21] MEDS: INSULIN GLARGINE (*BKC) 100 UNITS/ML 40 UNITS SUB-Q (08:49)
[2020-11-21] MEDS: INSULIN ASPART (*BKC) 100 UNITS/ML 16 UNITS SUB-Q ×2 (08:50→12:07)
[2020-11-21] MEDS: INSULIN ASPART (*BKC) 100 UNITS/ML SUB-Q ×2 (08:50→12:08)
[2020-11-21] MEDS: ASPIRIN 81 MG ENTERIC TABLET PO (08:55)
[2020-11-21] MEDS: FLUTICASONE PROPIONATE 0.05% NA SPR 16 GM BTL (*BKC) 2 SPRAY NASAL (08:55)
[2020-11-21 09:14] LABS: Hemoglobin 6.6 g/dL (12.0-15.0)
[2020-11-21 12:06] LABS: Glucose Point of Care 334 mg/dl (65-105)
[2020-11-21] MEDS: SODIUM CHLORIDE 0.9% IV 250 ML 30 ML IV CONT (12:12)
--- NOTE | 2020-11-21 12:50 | P.PNIM_ITS ---
Progress Note: A&P Assessment and Plan (1) Iron deficiency anemia: Qualifiers: Iron deficiency anemia type: other iron deficiency Qualified Code(s): D50.8 - Other iron deficiency anemias Code(s): D50.9 - Iron deficiency anemia, unspecified Status: Acute Assessment and Plan: * HGB 6.3 this am * Transfuse one unit of PRBC * Redraw one hour after completion * Labs in the AM * Iron, TIBC, Transferrin, ferritin are pending * Will start patient on Iron infusion daily * Trend H&H (2) Cellulitis of lower extremity: Qualifiers: Laterality: unspecified laterality Qualified Code(s): L03.119 - Cellulitis of unspecified part of limb Code(s): L03.119 - Cellulitis of unspecified part of limb Status: Acute Assessment and Plan: * Leg is hot, swollen, and red * 2-3+ edema on the right lower leg * Primaxin 500mg IV q8hr and Vancomycin 1750mg IV q12 hr * Cultures pending * Adjust antibiotics as needed * Monitor labs * Labs in the am * Diabetic diet (3) Type 2 diabetes mellitus with hyperglycemia, with long-term current use of insulin: Code(s): E11.65 - Type 2 diabetes mellitus with hyperglycemia; Z79.4 - svp chief marketing officer (current) use of insulin Status: Acute Assessment and Plan: * Glucose on labs this am 345 * Glucose checks ACHS * Lantus 40 SUBQ daily * Aspart 16units Subq with meals and sliding scale * Will increase sliding scale and meal time dose (4) Peripheral neuropathy: Qualifiers: Peripheral neuropathy type: polyneuropathy associated with underlying disease Qualified Code(s): G63 - Polyneuropathy in diseases classified elsewhere Code(s): G62.9 - Polyneuropathy, unspecified Status: Acute Assessment and Plan: * Continue Home lyrica 150mg BID (5) Atrial flutter: Qualifiers: Atrial flutter type: unspecified Qualified Code(s): I48.92 - Unspecified atrial flutter Code(s): I48.92 - Unspecified atrial flutter Status: Acute Assessment and Plan: * Patient 110-120/40-60s * Rhythm is normal and S1/S2 present * EKG shows Sinus tachycardia (6) COPD (chronic obstructive pulmonary disease): Qualifiers: COPD type: unspecified COPD Qualified Code(s): J44.9 - Chronic obstructive pulmonary disease, unspecified Code(s): J44.9 - Chronic obstructive pulmonary disease, unspecified Status: Chronic Assessment and Plan: * No notable wheezes or complaints of shortness of breath * Nebs Q6hr * Symbicort 2 puff INH q12hr * No complaints of cough Subjective Date/time seen: 11/21/20 12:50 Patient is a 65-year-old female with a past medical history of AFib COPD CHF and gastric bypass, who presented to the ED for evaluation of the right leg. Upon examination this a.m. patient's hemoglobin was 6.3 with a redraw of 6.6. interviewing the patient, the patient stated that she had gastric bypass in the past roughly 15 years ago and that she has a history of anemia and is transfused about every 2 years or so. Patient stated that she has noticed herself eating ice all the time and urinating enough. She stated that normally she is in the bathroom he frequently throughout the day. When asked about anemia she said she has never been diagnosed but she is unable to absorb iron. She did talk about her right leg becoming more red and swollen over the last few days, increased pain i
--- NOTE | 2020-11-21 12:50 | PM.IMPN ---
Progress Note: A&P Assessment and Plan (1) Iron deficiency anemia: Qualifiers: Iron deficiency anemia type: other iron deficiency Qualified Code(s): D50.8 - Other iron deficiency anemias Code(s): D50.9 - Iron deficiency anemia, unspecified Status: Acute Assessment and Plan: HGB 6.3 this am Transfuse one unit of PRBC Redraw one hour after completion Labs in the AM Iron, TIBC, Transferrin, ferritin are pending Will start patient on Iron infusion daily Trend H&H (2) Cellulitis of lower extremity: Qualifiers: Laterality: unspecified laterality Qualified Code(s): L03.119 - Cellulitis of unspecified part of limb Code(s): L03.119 - Cellulitis of unspecified part of limb Status: Acute Assessment and Plan: Leg is hot, swollen, and red 2-3+ edema on the right lower leg Primaxin 500mg IV q8hr and Vancomycin 1750mg IV q12 hr Cultures pending Adjust antibiotics as needed Monitor labs Labs in the am Diabetic diet (3) Type 2 diabetes mellitus with hyperglycemia, with long-term current use of insulin: Code(s): E11.65 - Type 2 diabetes mellitus with hyperglycemia; Z79.4 - retirement (current) use of insulin Status: Acute Assessment and Plan: Glucose on labs this am 345 Glucose checks ACHS Lantus 40 SUBQ daily Aspart 16units Subq with meals and sliding scale Will increase sliding scale and meal time dose (4) Peripheral neuropathy: Qualifiers: Peripheral neuropathy type: polyneuropathy associated with underlying disease Qualified Code(s): G63 - Polyneuropathy in diseases classified elsewhere Code(s): G62.9 - Polyneuropathy, unspecified Status: Acute Assessment and Plan: Continue Home lyrica 150mg BID (5) Atrial flutter: Qualifiers: Atrial flutter type: unspecified Qualified Code(s): I48.92 - Unspecified atrial flutter Code(s): I48.92 - Unspecified atrial flutter Status: Acute Assessment and Plan: Patient 110-120/40-60s Rhythm is normal and S1/S2 present EKG shows Sinus tachycardia (6) COPD (chronic obstructive pulmonary disease): Qualifiers: COPD type: unspecified COPD Qualified Code(s): J44.9 - Chronic obstructive pulmonary disease, unspecified Code(s): J44.9 - Chronic obstructive pulmonary disease, unspecified Status: Chronic Assessment and Plan: No notable wheezes or complaints of shortness of breath Nebs Q6hr Symbicort 2 puff INH q12hr No complaints of cough Subjective Date/time seen: 11/21/20 12:50 Patient is a 65-year-old female with a past medical history of AFib COPD CHF and gastric bypass, who presented to the ED for evaluation of the right leg. Upon examination this a.m. patient's hemoglobin was 6.3 with a redraw of 6.6. interviewing the patient, the patient stated that she had gastric bypass in the past roughly 15 years ago and that she has a history of anemia and is transfused about every 2 years or so. Patient stated that she has noticed herself eating ice all the time and urinating enough. She stated that normally she is in the bathroom he frequently throughout the day. When asked about anemia she said she has never been diagnosed but she is unable to absorb iron. She did talk about her right leg becoming more red and swollen over the last few days, increased pain in her right leg. she states that she went to her PCP who prescribed her doxycycline, however, she knows that she was having fevers so she came into the ED for further evaluation. Patient denies chest pain palpitations, shortness of breath, abdominal pain, nausea, vomiting, numbness tingling, constipation, diarrhea, blood in stool, abnormal heart beat, or headache. Patient did state that she had clips placed under heart problems recently. She also stated that she sees Dr. Mishra are for c
[2020-11-21 13:58] LABS: Iron < 10 ug/dL (37-170)
[2020-11-21 14:07] LABS: Transferrin 295 mg/dL (206-381)
[2020-11-21 15:41] LABS: Folic Acid > 20.0 ng/mL (2.76->20)
[2020-11-21 15:53] LABS: Percent Iron Saturation < 3 % (20-50)
[2020-11-21 16:29] LABS: Hematocrit 27.3 % (37.0-47.0); Hemoglobin 7.9 g/dL (12.0-15.0)
[2020-11-21 16:48] LABS: Glucose Point of Care 154 mg/dl (65-105)
[2020-11-21] MEDS: INSULIN ASPART (*BKC) 100 UNITS/ML 20 UNITS SUB-Q (17:37)
[2020-11-21] MEDS: LACTATED RINGERS 1,000 ML 60 ML IV CONT (17:41)
[2020-11-21 21:37] LABS: Glucose Point of Care 272 mg/dl (65-105)
[2020-11-22] VITALS (13 sets, daily range): BP systolic 102–115; BP diastolic 45–72; PULSE 65–82; RESP 14–20; TEMP 36.1–36.9; O2SAT 93–100
[2020-11-22] MEDS: HYDROcodone/acetaminophen (*CRX) 5-325 MG TABLET 1 TAB PO ×2 (01:29→12:01)
[2020-11-22] MEDS: ALBUTEROL SULFATE NEB 2.5 MG/0.5 ML INH 5 MG INHALATION ×4 (01:40→21:32)
[2020-11-22] MEDS: IPRATROPIUM BR 0.02% INH SOLN 0.5 MG/2.5 ML VIAL INHALATION ×4 (01:41→21:32)
[2020-11-22] MEDS: HYDROcodone/acetaminophen (*CRX) 5-325 MG TABLET 2 TAB PO ×3 (05:43→22:47)
[2020-11-22 06:56] LABS: Hematocrit 26.4 % (37.0-47.0); Hemoglobin 7.7 g/dL (12.0-15.0); Mean Corpuscular HGB Conc 29.2 g/dl (32-36); Mean Corpuscular Hemoglobin 20.5 pg (26-34); Mean Corpuscular Volume 70.4 fl (80-100); Mean Platelet Volume 9.7 fl (7.4-10.4); Platelet Count Result 164 k/mm3 (150-375); Red Blood Count 3.75 M/mm3 (4.2-5.4); Red Cell Distribution Width 19.5 % (11.5-14.5); White Blood Count 4.5 K/mm3 (4.5-10.0)
[2020-11-22 07:12] LABS: Anion Gap 3 mmol/L (8-16); Blood Urea Nitrogen 22 mg/dL (7-17); Calcium 8.6 mg/dL (8.4-10.2); Carbon Dioxide 29 mmol/L (22-30); Chloride 102 mmol/L (98-107); Estimated CRCL calculation 89 ml/min; Estimated Glomerular Filt Rate > 60; Glucose 251 mg/dL (65-105); Potassium 4.1 mmol/L (3.4-5.0); Sodium 134 mmol/L (137-145)
[2020-11-22 07:38] LABS: Glucose Point of Care 196 mg/dl (65-105)
[2020-11-22] MEDS: INSULIN GLARGINE (*BKC) 100 UNITS/ML 50 UNITS SUB-Q (07:53)
[2020-11-22] MEDS: INSULIN ASPART (*BKC) 100 UNITS/ML 20 UNITS SUB-Q ×3 (07:53→17:22)
--- NOTE | 2020-11-22 07:55 | P.PNIM_ITS ---
Progress Note: A&P Assessment and Plan (1) Cellulitis of lower extremity: Qualifiers: Laterality: unspecified laterality Qualified Code(s): L03.119 - Cellulitis of unspecified part of limb Code(s): L03.119 - Cellulitis of unspecified part of limb Status: Acute Assessment and Plan: * Leg is hot, swollen, and red * 2-3+ edema on the right lower leg * Primaxin 500mg IV q8hr and Vancomycin 1750mg IV q12 hr * Cultures no growth shown * [place] 1-2 tabs q4hr PRN * Adjust antibiotics as needed * Monitor labs * Labs in the am * Elevate affected extremity * Diabetic diet (2) Iron deficiency anemia: Qualifiers: Iron deficiency anemia type: other iron deficiency Qualified Code(s): D50.8 - Other iron deficiency anemias Code(s): D50.9 - Iron deficiency anemia, unspecified Status: Acute Assessment and Plan: * HGB 7.7 HCT 26.4 this am up from 6.3 yesterday * One unit of PRBC on 11/21/20 * Labs in the AM * Iron <10, TIBC 505, Transferrin 295, ferritin 41.6 * Iron Sulfate 324 PO BID * Trend H&H (3) Type 2 diabetes mellitus with hyperglycemia, with long-term current use of insulin: Code(s): E11.65 - Type 2 diabetes mellitus with hyperglycemia; Z79.4 - group home (current) use of insulin Status: Acute Assessment and Plan: * Glucose on labs this am 251 * Glucose checks ACHS * Lantus 50 SUBQ daily * Aspart 20 units Subq with meals and sliding scale * POC glucose 196 (4) Peripheral neuropathy: Qualifiers: Peripheral neuropathy type: polyneuropathy associated with underlying disease Qualified Code(s): G63 - Polyneuropathy in diseases classified elsewhere Code(s): G62.9 - Polyneuropathy, unspecified Status: Acute Assessment and Plan: * Continue Home lyrica 150mg BID (5) Atrial flutter: Qualifiers: Atrial flutter type: unspecified Qualified Code(s): I48.92 - Unspecified atrial flutter Code(s): I48.92 - Unspecified atrial flutter Status: Acute Assessment and Plan: * Patient 110-120/40-60s * Rhythm is normal and S1/S2 present * EKG shows Sinus tachycardia (6) COPD (chronic obstructive pulmonary disease): Qualifiers: COPD type: unspecified COPD Qualified Code(s): J44.9 - Chronic obstructive pulmonary disease, unspecified Code(s): J44.9 - Chronic obstructive pulmonary disease, unspecified Status: Chronic Assessment and Plan: * No notable wheezes or complaints of shortness of breath * Nebs Q6hr * Symbicort 2 puff INH q12hr * No complaints of cough Subjective Date/time seen: 11/22/20 07:55 Interval history: Patient is a 65-year-old female with a past medical history of AFib COPD CHF and gastric bypass, who presented to the ED for evaluation of the right leg. Heme studies were resulted today and showed a very low iron at less than 10. Iron has been started with the patient. Upon arrival to patient's room patient was sitting in the chair and transfer back to the bed. Patient stated that her legs is much larger and hurts worse. She also stated that she thinks it is more red, and then it harder on the outer lateral side of the right leg. Patient denies chest pain palpitations, shortness of breath, abdominal pain, nausea, vomiting, numbness tingling, constipation, diarrhea, blood in stool, abnormal heart beat, or headache. Patient admits to having
--- NOTE | 2020-11-22 07:55 | PM.IMPN ---
Progress Note: A&P Assessment and Plan (1) Cellulitis of lower extremity: Qualifiers: Laterality: unspecified laterality Qualified Code(s): L03.119 - Cellulitis of unspecified part of limb Code(s): L03.119 - Cellulitis of unspecified part of limb Status: Acute Assessment and Plan: Leg is hot, swollen, and red 2-3+ edema on the right lower leg Primaxin 500mg IV q8hr and Vancomycin 1750mg IV q12 hr Cultures no growth shown [place] 1-2 tabs q4hr PRN Adjust antibiotics as needed Monitor labs Labs in the am Elevate affected extremity Diabetic diet (2) Iron deficiency anemia: Qualifiers: Iron deficiency anemia type: other iron deficiency Qualified Code(s): D50.8 - Other iron deficiency anemias Code(s): D50.9 - Iron deficiency anemia, unspecified Status: Acute Assessment and Plan: HGB 7.7 HCT 26.4 this am up from 6.3 yesterday One unit of PRBC on 11/21/20 Labs in the AM Iron <10, TIBC 505, Transferrin 295, ferritin 41.6 Iron Sulfate 324 PO BID Trend H&H (3) Type 2 diabetes mellitus with hyperglycemia, with long-term current use of insulin: Code(s): E11.65 - Type 2 diabetes mellitus with hyperglycemia; Z79.4 - prison (current) use of insulin Status: Acute Assessment and Plan: Glucose on labs this am 251 Glucose checks ACHS Lantus 50 SUBQ daily Aspart 20 units Subq with meals and sliding scale POC glucose 196 (4) Peripheral neuropathy: Qualifiers: Peripheral neuropathy type: polyneuropathy associated with underlying disease Qualified Code(s): G63 - Polyneuropathy in diseases classified elsewhere Code(s): G62.9 - Polyneuropathy, unspecified Status: Acute Assessment and Plan: Continue Home lyrica 150mg BID (5) Atrial flutter: Qualifiers: Atrial flutter type: unspecified Qualified Code(s): I48.92 - Unspecified atrial flutter Code(s): I48.92 - Unspecified atrial flutter Status: Acute Assessment and Plan: Patient 110-120/40-60s Rhythm is normal and S1/S2 present EKG shows Sinus tachycardia (6) COPD (chronic obstructive pulmonary disease): Qualifiers: COPD type: unspecified COPD Qualified Code(s): J44.9 - Chronic obstructive pulmonary disease, unspecified Code(s): J44.9 - Chronic obstructive pulmonary disease, unspecified Status: Chronic Assessment and Plan: No notable wheezes or complaints of shortness of breath Nebs Q6hr Symbicort 2 puff INH q12hr No complaints of cough Subjective Date/time seen: 11/22/20 07:55 Interval history: Patient is a 65-year-old female with a past medical history of AFib COPD CHF and gastric bypass, who presented to the ED for evaluation of the right leg. Heme studies were resulted today and showed a very low iron at less than 10. Iron has been started with the patient. Upon arrival to patient's room patient was sitting in the chair and transfer back to the bed. Patient stated that her legs is much larger and hurts worse. She also stated that she thinks it is more red, and then it harder on the outer lateral side of the right leg. Patient denies chest pain palpitations, shortness of breath, abdominal pain, nausea, vomiting, numbness tingling, constipation, diarrhea, blood in stool, abnormal heart beat, or headache. Patient admits to having 8/10 pain when palpating the right leg , transferring to the chair, walking to the bathroom, or any pressure applied to the leg. She also stated that she noticed more reddening around the calf area. All questions were answered patient was updated about plan of care patient verbalized understanding. blood cultures are still showing no growth. Right leg is slightly more swollen than it was yesterday however redness is mostly on the [place] and does not move the back of the calf. There is 3+ pittin
[2020-11-22] MEDS: IRON SUCROSE COMPLEX 100 MG in SODIUM CHLORIDE 0.9% IV 50 ML 220 MG IVPB (07:57)
[2020-11-22 08:23] LABS: Vancomycin Trough 15.2 ug/mL (10.0-20.0)
[2020-11-22] MEDS: ASPIRIN 81 MG ENTERIC TABLET PO (09:28)
[2020-11-22] MEDS: carvediloL 25 MG TABLET PO ×2 (09:28→22:48)
[2020-11-22] MEDS: FLUTICASONE PROPIONATE 0.05% NA SPR 16 GM BTL (*BKC) 2 SPRAY NASAL (09:28)
[2020-11-22] MEDS: PREGABALIN (*CRX) 75 MG CAPSULE 150 MG PO ×2 (09:32→22:48)
[2020-11-22 11:56] LABS: Glucose Point of Care 214 mg/dl (65-105)
[2020-11-22] MEDS: INSULIN ASPART (*BKC) 100 UNITS/ML SUB-Q (12:00)
[2020-11-22 16:44] LABS: Glucose Point of Care 181 mg/dl (65-105)
[2020-11-22] MEDS: RIVAROXABAN 20 MG TABLET PO (17:25)
[2020-11-22] MEDS: FERROUS SULFATE 324 MG TABLET PO (17:25)
[2020-11-22 21:00] LABS: Glucose Point of Care 189 mg/dl (65-105)
[2020-11-22] MEDS: rOPINIRole HCL 1 MG TABLET 3 MG PO (22:48)
[2020-11-22 23:11] LABS: Glucose Point of Care 138 mg/dl (65-105)
[2020-11-23] VITALS (13 sets, daily range): BP systolic 121–147; BP diastolic 57–71; PULSE 71–90; RESP 16–18; TEMP 36.5–36.9; O2SAT 97–100
[2020-11-23] MEDS: ALBUTEROL SULFATE NEB 2.5 MG/0.5 ML INH 5 MG INHALATION ×4 (03:20→19:33)
[2020-11-23] MEDS: IPRATROPIUM BR 0.02% INH SOLN 0.5 MG/2.5 ML VIAL INHALATION ×4 (03:20→19:33)
[2020-11-23 06:20] LABS: Hematocrit 28.2 % (37.0-47.0); Hemoglobin 7.9 g/dL (12.0-15.0); Mean Corpuscular Hemoglobin 20.2 pg (26-34); Mean Corpuscular Volume 72.1 fl (80-100); Mean Platelet Volume 9.8 fl (7.4-10.4); Platelet Count Result 197 k/mm3 (150-375); Red Blood Count 3.91 M/mm3 (4.2-5.4); White Blood Count 5.4 K/mm3 (4.5-10.0)
[2020-11-23 06:35] LABS: Anion Gap 3 mmol/L (8-16); Blood Urea Nitrogen 16 mg/dL (7-17); Calcium 9.1 mg/dL (8.4-10.2); Carbon Dioxide 31 mmol/L (22-30); Chloride 103 mmol/L (98-107); Estimated CRCL calculation 102 ml/min; Estimated Glomerular Filt Rate > 60; Glucose 168 mg/dL (65-105); Potassium 4.2 mmol/L (3.4-5.0); Sodium 137 mmol/L (137-145)
[2020-11-23 08:52] LABS: Glucose Point of Care 137 mg/dl (65-105)
[2020-11-23] MEDS: FUROSEMIDE INJ 40 MG/4 ML VIAL IV PUSH (09:34)
[2020-11-23] MEDS: FERROUS SULFATE 324 MG TABLET PO ×2 (09:35→17:26)
[2020-11-23] MEDS: carvediloL 25 MG TABLET PO ×2 (09:35→23:09)
[2020-11-23] MEDS: ASPIRIN 81 MG ENTERIC TABLET PO (09:35)
[2020-11-23] MEDS: FLUTICASONE PROPIONATE 0.05% NA SPR 16 GM BTL (*BKC) 2 SPRAY NASAL (09:36)
[2020-11-23] MEDS: INSULIN ASPART (*BKC) 100 UNITS/ML 20 UNITS SUB-Q ×2 (09:37→11:53)
[2020-11-23] MEDS: INSULIN GLARGINE (*BKC) 100 UNITS/ML 50 UNITS SUB-Q (09:37)
--- NOTE | 2020-11-23 09:54 | P.PNIM_ITS ---
Progress Note: A&P Assessment and Plan (1) Cellulitis of lower extremity: Qualifiers: Laterality: unspecified laterality Qualified Code(s): L03.119 - Cellulitis of unspecified part of limb Code(s): L03.119 - Cellulitis of unspecified part of limb Status: Acute Assessment and Plan: * Leg is hot, swollen, and red * 2-3+ edema on the right lower leg * 40 IV lasix once today * Primaxin 500mg IV q8hr and Vancomycin 1750mg IV q12 hr * Cultures no growth to date * [place] 1-2 tabs q4hr PRN * Adjust antibiotics as needed * Monitor labs * Labs in the am * Elevate affected extremity * Diabetic diet (2) Iron deficiency anemia: Qualifiers: Iron deficiency anemia type: other iron deficiency Qualified Code(s): D50.8 - Other iron deficiency anemias Code(s): D50.9 - Iron deficiency anemia, unspecified Status: Acute Assessment and Plan: * HGB 7.9 HCT 28.2 this am up from 7.7 yesterday * One unit of PRBC on 11/21/20 * Labs in the AM * Iron <10, TIBC 505, Transferrin 295, ferritin 41.6 * Iron Sulfate 324 PO BID * Trend H&H (3) Type 2 diabetes mellitus with hyperglycemia, with long-term current use of insulin: Code(s): E11.65 - Type 2 diabetes mellitus with hyperglycemia; Z79.4 - senior care (current) use of insulin Status: Acute Assessment and Plan: * Glucose on labs this am 168 * Glucose checks ACHS * Lantus 50 SUBQ daily * Aspart 20 units Subq with meals and sliding scale * POC glucose 137 (4) Peripheral neuropathy: Qualifiers: Peripheral neuropathy type: polyneuropathy associated with underlying disease Qualified Code(s): G63 - Polyneuropathy in diseases classified elsewhere Code(s): G62.9 - Polyneuropathy, unspecified Status: Acute Assessment and Plan: * Continue Home lyrica 150mg BID (5) Atrial flutter: Qualifiers: Atrial flutter type: unspecified Qualified Code(s): I48.92 - Unspecified atrial flutter Code(s): I48.92 - Unspecified atrial flutter Status: Acute Assessment and Plan: * Patient 110-120/40-60s * Rhythm is normal and S1/S2 present * EKG shows Sinus tachycardia (6) COPD (chronic obstructive pulmonary disease): Qualifiers: COPD type: unspecified COPD Qualified Code(s): J44.9 - Chronic obstructive pulmonary disease, unspecified Code(s): J44.9 - Chronic obstructive pulmonary disease, unspecified Status: Chronic Assessment and Plan: * No notable wheezes or complaints of shortness of breath * Nebs Q6hr * Symbicort 2 puff INH q12hr * No complaints of cough Subjective Date/time seen: 11/23/20 09:54 Patient is a 65-year-old female with a past medical history of AFib COPD CHF and gastric bypass, who presented to the ED for evaluation of the right leg. patient states she is feeling better today, however she feels that her congestive heart failure is playing a role in her shortness of breath. Patient stated that she is on 40 of Lasix p.o. daily and she takes 20 whenever she has appointments for the day. Patient stated that she was concerned since they have stopped her Lasix not restarted since she has been here. She also stated that she felt like her legs were swollen and a little bit more tight than normal. Patient did state that her pain is better in her right leg the redness in her right leg is also going down. Patient denies dave
--- NOTE | 2020-11-23 09:54 | PM.IMPN ---
Progress Note: A&P Assessment and Plan (1) Cellulitis of lower extremity: Qualifiers: Laterality: unspecified laterality Qualified Code(s): L03.119 - Cellulitis of unspecified part of limb Code(s): L03.119 - Cellulitis of unspecified part of limb Status: Acute Assessment and Plan: Leg is hot, swollen, and red 2-3+ edema on the right lower leg 40 IV lasix once today Primaxin 500mg IV q8hr and Vancomycin 1750mg IV q12 hr Cultures no growth to date [place] 1-2 tabs q4hr PRN Adjust antibiotics as needed Monitor labs Labs in the am Elevate affected extremity Diabetic diet (2) Iron deficiency anemia: Qualifiers: Iron deficiency anemia type: other iron deficiency Qualified Code(s): D50.8 - Other iron deficiency anemias Code(s): D50.9 - Iron deficiency anemia, unspecified Status: Acute Assessment and Plan: HGB 7.9 HCT 28.2 this am up from 7.7 yesterday One unit of PRBC on 11/21/20 Labs in the AM Iron <10, TIBC 505, Transferrin 295, ferritin 41.6 Iron Sulfate 324 PO BID Trend H&H (3) Type 2 diabetes mellitus with hyperglycemia, with long-term current use of insulin: Code(s): E11.65 - Type 2 diabetes mellitus with hyperglycemia; 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 Status: Acute Assessment and Plan: Glucose on labs this am 168 Glucose checks ACHS Lantus 50 SUBQ daily Aspart 20 units Subq with meals and sliding scale POC glucose 137 (4) Peripheral neuropathy: Qualifiers: Peripheral neuropathy type: polyneuropathy associated with underlying disease Qualified Code(s): G63 - Polyneuropathy in diseases classified elsewhere Code(s): G62.9 - Polyneuropathy, unspecified Status: Acute Assessment and Plan: Continue Home lyrica 150mg BID (5) Atrial flutter: Qualifiers: Atrial flutter type: unspecified Qualified Code(s): I48.92 - Unspecified atrial flutter Code(s): I48.92 - Unspecified atrial flutter Status: Acute Assessment and Plan: Patient 110-120/40-60s Rhythm is normal and S1/S2 present EKG shows Sinus tachycardia (6) COPD (chronic obstructive pulmonary disease): Qualifiers: COPD type: unspecified COPD Qualified Code(s): J44.9 - Chronic obstructive pulmonary disease, unspecified Code(s): J44.9 - Chronic obstructive pulmonary disease, unspecified Status: Chronic Assessment and Plan: No notable wheezes or complaints of shortness of breath Nebs Q6hr Symbicort 2 puff INH q12hr No complaints of cough Subjective Date/time seen: 11/23/20 09:54 Patient is a 65-year-old female with a past medical history of AFib COPD CHF and gastric bypass, who presented to the ED for evaluation of the right leg. patient states she is feeling better today, however she feels that her congestive heart failure is playing a role in her shortness of breath. Patient stated that she is on 40 of Lasix p.o. daily and she takes 20 whenever she has appointments for the day. Patient stated that she was concerned since they have stopped her Lasix not restarted since she has been here. She also stated that she felt like her legs were swollen and a little bit more tight than normal. Patient did state that her pain is better in her right leg the redness in her right leg is also going down. Patient denies chest pain palpitations, shortness of breath, abdominal pain, nausea, vomiting, numbness tingling, constipation, diarrhea, blood in stool, abnormal heart beat, or headache. Explained to patient that I had planned on giving her 40 of IV Lasix today. Also explained to patient that I would like to switch her pain meds to ibuprofen to see if that would help with her swelling. All questions were answered patient was updated about plan of care patient verbalized understanding. Review of Systems Review of
[2020-11-23] MEDS: PREGABALIN (*CRX) 75 MG CAPSULE 150 MG PO ×2 (09:57→23:09)
--- NOTE | 2020-11-23 10:42 | P.CDI_ITS ---
CDI Query Clarification Request -Acute renal failure was documented in H&P and diuresis held. -No further mention of acute renal failure -Creatinine 1.4 on admission. Creatinine 0.6 today. Please clarify if acute renal failure was: * Ruled in * Ruled out * Unable to determine
[2020-11-23 11:46] LABS: Glucose Point of Care 242 mg/dl (65-105)
[2020-11-23] MEDS: INSULIN ASPART (*BKC) 100 UNITS/ML SUB-Q (11:52)
[2020-11-23 16:47] LABS: Glucose Point of Care 74 mg/dl (65-105)
[2020-11-23] MEDS: RIVAROXABAN 20 MG TABLET PO (17:26)
[2020-11-23] MEDS: HYDROcodone/acetaminophen (*CRX) 5-325 MG TABLET 1 TAB PO (18:57)
[2020-11-23 22:20] LABS: Glucose Point of Care 210 mg/dl (65-105)
[2020-11-23 22:59] LABS: Vancomycin Trough 19.2 ug/mL (10.0-20.0)
[2020-11-23] MEDS: rOPINIRole HCL 1 MG TABLET 3 MG PO (23:10)
[2020-11-24] VITALS (16 sets, daily range): BP systolic 123–139; BP diastolic 50–65; PULSE 66–94; RESP 16–18; TEMP 35.9–36.3; O2SAT 97–100
--- NOTE | 2020-11-24 | ECHO_ITS ---
Patient Info Name: Charlene Chen Age: 65 years : 1955 Gender: Female Ht: 65 in Wt: 260 lbs BSA: 2.39 m2 HR: 78 bpm BP: 94 / 44 mmHg Heart Rhythm: Sinus Rhythm Technical Quality: Good Exam Date: 11/24/2020 10:52 AM Exam Location: [facility] Card Pulmonary Exam Room: 342 Patient Status: Inpatient Admit Date: 11/22/2020 Staff Ordering Physician: Galindo Velazquez Brim Molder: Eve Kothari RDCS Attending Provider: Galindo Velazquez Referring Physician: Marcus BOJORQUEZ; Exam Type: CA echo doppler color flow Study Info Indications - SYNCOPE CHF Complete two-dimensional, color flow and Doppler transthoracic echocardiogram is performed. Summary 1. Complete two-dimensional, color flow and Doppler transthoracic echocardiogram is performed. 2. Left ventricular chamber dimension is moderately enlarged. 3. Left ventricular systolic function is severely reduced, estimated at 20-25%. 4. Left atrial chamber dimension is severely enlarged. 5. There is mild aortic valve sclerosis. 6. There is moderate regurgitation of the MitraClip mitral valve. 7. Likely appearance of a MitraClip structure associated with the mitral valve leaflets. Clinical correlation advised. Left Ventricle Left ventricular chamber dimension is moderately enlarged. Left ventricular systolic function is severely reduced, estimated at 20-25%. Right Ventricle Right ventricular chamber dimension is normal. Left Atria Left atrial chamber dimension is severely enlarged. Right Atria Right atrial chamber dimension is mildly enlarged. Aortic Valve The aortic valve is trileaflet. There is mild aortic valve sclerosis. Pulmonic Valve The pulmonic valve is not well visualized. Mitral Valve The MitraClip mitral valve leaflefts are Empty. There is moderate regurgitation of the MitraClip mitral valve. Likely appearance of a MitraClip structure associated with the mitral valve leaflets. Clinical correlation advised. Tricuspid Valve The tricuspid valve leaflets are normal. There is mild tricuspid valve regurgitation. Pericardium/Pleural The pericardium appears normal. Aorta The aortic root size at the sinus of Valsalva is normal. Left Ventricular Outflow Tract Name Value Normal LVOT 2D LVOT Diameter 2.0 cm LVOT Doppler LVOT Peak Gradient 4 mmHg LVOT Mean Gradient 2 mmHg LVOT VTI 19 cm LVOT VTI/AV VTI Ratio 0.6 LVOT Stroke Volume 61 ml LVOT CO 14.0 l/min LVOT CI 5.8 l/min/m2 Pulmonic Valve Name Value Normal PV Doppler PV Peak Gradient 5 mmHg Mitral Valve Name
[2020-11-24] MEDS: IPRATROPIUM BR 0.02% INH SOLN 0.5 MG/2.5 ML VIAL INHALATION ×4 (01:36→21:02)
[2020-11-24] MEDS: ALBUTEROL SULFATE NEB 2.5 MG/0.5 ML INH 5 MG INHALATION ×4 (01:36→21:02)
[2020-11-24 06:34] LABS: Glucose Point of Care 143 mg/dl (65-105)
[2020-11-24 06:45] LABS: Hematocrit 27.4 % (37.0-47.0); Hemoglobin 7.9 g/dL (12.0-15.0); Mean Corpuscular HGB Conc 28.8 g/dl (32-36); Mean Corpuscular Hemoglobin 20.1 pg (26-34); Mean Corpuscular Volume 69.7 fl (80-100); Platelet Count Result 203 k/mm3 (150-375); Red Blood Count 3.93 M/mm3 (4.2-5.4); Red Cell Distribution Width 19.9 % (11.5-14.5); White Blood Count 5.6 K/mm3 (4.5-10.0)
[2020-11-24 06:56] LABS: Alanine Aminotransferase 17 U/L (4-35); Albumin Level 3.2 g/dL (3.5-5.1); Alkaline Phosphatase 106 U/L (38-126); Anion Gap 4 mmol/L (8-16); Aspartate Amino Transferase 23 U/L (14-36); Bilirubin,Total 0.3 mg/dL (0.2-1.3); Blood Urea Nitrogen 16 mg/dL (7-17); Carbon Dioxide 31 mmol/L (22-30); Chloride 103 mmol/L (98-107); Estimated CRCL calculation 89 ml/min; Estimated Glomerular Filt Rate > 60; Glucose 147 mg/dL (65-105); Potassium 3.9 mmol/L (3.4-5.0); Sodium 138 mmol/L (137-145)
[2020-11-24 07:04] LABS: NT Pro B Type Natriuretic Pept 1140 pg/mL (5-100)
--- NOTE | 2020-11-24 08:43 | P.PNIM_ITS ---
Progress Note: A&P Assessment and Plan (1) Cellulitis of lower extremity: Qualifiers: Laterality: unspecified laterality Qualified Code(s): L03.119 - Cellulitis of unspecified part of limb Code(s): L03.119 - Cellulitis of unspecified part of limb Status: Acute Assessment and Plan: * Leg is still a bit red, but evenly temperatured. * 2+ edema on the right lower leg * Repeat 40 IV lasix once * Primaxin 500mg IV q8hr and Vancomycin 1750mg IV q12 hr * Cultures no growth to date * [place] 1-2 tabs q4hr PRN * Adjust antibiotics as needed * Monitor labs * Labs in the am * Elevate affected extremity * Diabetic diet (2) Chest pain: Qualifiers: Chest pain type: intercostal pain Qualified Code(s): R07.82 - Intercostal pain Code(s): R07.9 - Chest pain, unspecified Status: Acute Assessment and Plan: * Patient reported chest pain sharp in nature under the left breast * Patient denies pain in jaw, back, head, or other chest areas * Trop negative 0.012 * BNP is elevated 1140 * Lasix 40mg IV once * EKG ordered and pending * Cardiac monitoring (3) Syncope: Qualifiers: Syncope type: unspecified Qualified Code(s): R55 - Syncope and collapse Code(s): R55 - Syncope and collapse Status: Acute Assessment and Plan: * Patient stated that she has a cough that causes near syncope/black out/collapse * Probably a vagal response * Patient stated that she thinks it is fluid overload * Gave lasix 11/23/20 with slight relief * Carotid ultrasound ordered and pending * Echo pending * Educated patient about slow movements, and pauses between position changes (4) CHF (congestive heart failure): Qualifiers: Heart failure type: unspecified Heart failure chronicity: acute on chronic Qualified Code(s): I50.9 - Heart failure, unspecified Code(s): I50.9 - Heart failure, unspecified Status: Acute Assessment and Plan: * Patient stated that she has a history of CHF * Edema 2+ bilateral lower extremities * Lasix today 40mg IV * I&Os * BNP 1140 * Echo Pending * Will consider chest xray in the am (5) Iron deficiency anemia: Qualifiers: Iron deficiency anemia type: other iron deficiency Qualified Code(s): D50.8 - Other iron deficiency anemias Code(s): D50.9 - Iron deficiency anemia, unspecified Status: Acute Assessment and Plan: * HGB 7.9 HCT 27.4 * One unit of PRBC on 11/21/20 * Labs in the AM * Iron <10, TIBC 505, Transferrin 295, ferritin 41.6 * Iron Sulfate 324 PO BID * Trend H&H (6) Type 2 diabetes mellitus with hyperglycemia, with long-term current use of insulin: Code(s): E11.65 - Type 2 diabetes mellitus with hyperglycemia; Z79.4 - USP (current) use of insulin Status: Acute Assessment and Plan: * Glucose on labs this am 147 * Glucose checks ACHS * Lantus 50 SUBQ daily * Aspart 20 units Subq with meals and sliding scale * Scheduled insulin held at dinner yesterday and 10units for this am * Keep glucose around 150 * POC glucose 143 (7) Peripheral neuropathy: Qualifiers: Peripheral neuropathy type: polyneuropathy associated with underlying disease Qualified Code(s): G63 - Polyneuropathy in diseases classified elsewhere Code(s): G62.9 - Polyneuropathy, unspecified Status: Acute
--- NOTE | 2020-11-24 08:43 | PM.IMPN ---
Progress Note: A&P Assessment and Plan (1) Cellulitis of lower extremity: Qualifiers: Laterality: unspecified laterality Qualified Code(s): L03.119 - Cellulitis of unspecified part of limb Code(s): L03.119 - Cellulitis of unspecified part of limb Status: Acute Assessment and Plan: Leg is still a bit red, but evenly temperatured. 2+ edema on the right lower leg Repeat 40 IV lasix once Primaxin 500mg IV q8hr and Vancomycin 1750mg IV q12 hr Cultures no growth to date [place] 1-2 tabs q4hr PRN Adjust antibiotics as needed Monitor labs Labs in the am Elevate affected extremity Diabetic diet (2) Chest pain: Qualifiers: Chest pain type: intercostal pain Qualified Code(s): R07.82 - Intercostal pain Code(s): R07.9 - Chest pain, unspecified Status: Acute Assessment and Plan: Patient reported chest pain sharp in nature under the left breast Patient denies pain in jaw, back, head, or other chest areas Trop negative 0.012 BNP is elevated 1140 Lasix 40mg IV once EKG ordered and pending Cardiac monitoring (3) Syncope: Qualifiers: Syncope type: unspecified Qualified Code(s): R55 - Syncope and collapse Code(s): R55 - Syncope and collapse Status: Acute Assessment and Plan: Patient stated that she has a cough that causes near syncope/black out/collapse Probably a vagal response Patient stated that she thinks it is fluid overload Gave lasix 11/23/20 with slight relief Carotid ultrasound ordered and pending Echo pending Educated patient about slow movements, and pauses between position changes (4) CHF (congestive heart failure): Qualifiers: Heart failure type: unspecified Heart failure chronicity: acute on chronic Qualified Code(s): I50.9 - Heart failure, unspecified Code(s): I50.9 - Heart failure, unspecified Status: Acute Assessment and Plan: Patient stated that she has a history of CHF Edema 2+ bilateral lower extremities Lasix today 40mg IV I&Os BNP 1140 Echo Pending Will consider chest xray in the am (5) Iron deficiency anemia: Qualifiers: Iron deficiency anemia type: other iron deficiency Qualified Code(s): D50.8 - Other iron deficiency anemias Code(s): D50.9 - Iron deficiency anemia, unspecified Status: Acute Assessment and Plan: HGB 7.9 HCT 27.4 One unit of PRBC on 11/21/20 Labs in the AM Iron <10, TIBC 505, Transferrin 295, ferritin 41.6 Iron Sulfate 324 PO BID Trend H&H (6) Type 2 diabetes mellitus with hyperglycemia, with long-term current use of insulin: Code(s): E11.65 - Type 2 diabetes mellitus with hyperglycemia; Z79.4 - FDC (current) use of insulin Status: Acute Assessment and Plan: Glucose on labs this am 147 Glucose checks ACHS Lantus 50 SUBQ daily Aspart 20 units Subq with meals and sliding scale Scheduled insulin held at dinner yesterday and 10units for this am Keep glucose around 150 POC glucose 143 (7) Peripheral neuropathy: Qualifiers: Peripheral neuropathy type: polyneuropathy associated with underlying disease Qualified Code(s): G63 - Polyneuropathy in diseases classified elsewhere Code(s): G62.9 - Polyneuropathy, unspecified Status: Acute Assessment and Plan: Continue Home lyrica 150mg BID (8) Atrial flutter: Qualifiers: Atrial flutter type: unspecified Qualified Code(s): I48.92 - Unspecified atrial flutter Code(s): I48.92 - Unspecified atrial flutter Status: Acute Assessment and Plan: Patient 110-120/40-60s Rhythm is normal and S1/S2 present EKG shows Sinus tachycardia (9) COPD (chronic obstructive pulmonary disease): Qualifiers: COPD type: unspecified COPD Qualified Code(s): J44.9 - Chronic obstructive
[2020-11-24 08:45] LABS: Magnesium 2.3 mg/dL (1.6-2.3)
[2020-11-24 08:58] LABS: Troponin I < 0.012 ng/mL (0.000-0.034)
[2020-11-24] MEDS: FUROSEMIDE INJ 40 MG/4 ML VIAL IV PUSH (09:18)
[2020-11-24] MEDS: carvediloL 25 MG TABLET PO ×2 (09:19→23:00)
[2020-11-24] MEDS: ASPIRIN 81 MG ENTERIC TABLET PO (09:19)
[2020-11-24] MEDS: PREGABALIN (*CRX) 75 MG CAPSULE 150 MG PO ×2 (09:19→22:59)
[2020-11-24] MEDS: FLUTICASONE PROPIONATE 0.05% NA SPR 16 GM BTL (*BKC) 2 SPRAY NASAL (09:19)
[2020-11-24] MEDS: FERROUS SULFATE 324 MG TABLET PO ×2 (09:19→17:23)
--- NOTE | 2020-11-24 09:22 | ECG_ITS ---
Measurements Intervals [place] Rate: 84 P: 51 VT: 190 QRS: 121 QRSD: 174 T: 14 QT: 417 QTc: 496 Interpretive Statements SINUS RHYTHM POSSIBLE LEFT ATRIAL ENLARGEMENT RIGHT BUNDLE BRANCH BLOCK LEFT POSTERIOR FASCICULAR BLOCK BASELINE ARTIFACT- I, III, AVR, AVL, AVF, V1-V3, V6 ABNORMAL ECG Electronically Signed On 11-24-2020 12:06:52 CDT by Narinder Roche D.O.
[2020-11-24] MEDS: INSULIN GLARGINE (*BKC) 100 UNITS/ML 50 UNITS SUB-Q (09:23)
[2020-11-24] MEDS: INSULIN ASPART (*BKC) 100 UNITS/ML 10 UNITS SUB-Q (09:32)
[2020-11-24 11:47] LABS: Glucose Point of Care 183 mg/dl (65-105)
[2020-11-24] MEDS: INSULIN ASPART (*BKC) 100 UNITS/ML 20 UNITS SUB-Q ×2 (12:56→17:23)
[2020-11-24 16:35] LABS: Glucose Point of Care 158 mg/dl (65-105)
[2020-11-24] MEDS: RIVAROXABAN 20 MG TABLET PO (17:23)
[2020-11-24 20:49] LABS: Glucose Point of Care 150 mg/dl (65-105)
[2020-11-24] MEDS: rOPINIRole HCL 1 MG TABLET 3 MG PO (23:00)
[2020-11-25] VITALS (9 sets, daily range): BP systolic 134; BP diastolic 74; PULSE 72–86; RESP 16–18; TEMP 35.8; O2SAT 98–100
--- NOTE | 2020-11-25 05:13 | PCRCNOTE ---
Window of time for administration has passed. See next scheduled administration.
[2020-11-25 06:20] LABS: Hematocrit 29.1 % (37.0-47.0); Hemoglobin 8.1 g/dL (12.0-15.0); Mean Corpuscular HGB Conc 27.8 g/dl (32-36); Mean Corpuscular Hemoglobin 20.3 pg (26-34); Mean Corpuscular Volume 72.9 fl (80-100); Mean Platelet Volume 9.2 fl (7.4-10.4); Platelet Count Result 202 k/mm3 (150-375); Red Blood Count 3.99 M/mm3 (4.2-5.4); Red Cell Distribution Width 20.6 % (11.5-14.5); White Blood Count 7.4 K/mm3 (4.5-10.0)
[2020-11-25 06:35] LABS: Anion Gap 1 mmol/L (8-16); Blood Urea Nitrogen 16 mg/dL (7-17); Carbon Dioxide 33 mmol/L (22-30); Chloride 105 mmol/L (98-107); Estimated CRCL calculation 89 ml/min; Estimated Glomerular Filt Rate > 60; Glucose 103 mg/dL (65-105); Magnesium 2.4 mg/dL (1.6-2.3); Potassium 4.2 mmol/L (3.4-5.0); Sodium 139 mmol/L (137-145)
[2020-11-25 07:45] LABS: Glucose Point of Care 96 mg/dl (65-105)
[2020-11-25] MEDS: INSULIN GLARGINE (*BKC) 100 UNITS/ML 50 UNITS SUB-Q (09:20)
[2020-11-25] MEDS: PREGABALIN (*CRX) 75 MG CAPSULE 150 MG PO (09:21)
[2020-11-25] MEDS: carvediloL 25 MG TABLET PO (09:21)
[2020-11-25] MEDS: FERROUS SULFATE 324 MG TABLET PO (09:21)
[2020-11-25] MEDS: ASPIRIN 81 MG ENTERIC TABLET PO (09:22)
[2020-11-25] MEDS: FLUTICASONE PROPIONATE 0.05% NA SPR 16 GM BTL (*BKC) 2 SPRAY NASAL (09:52)
[2020-11-25] MEDS: IPRATROPIUM BR 0.02% INH SOLN 0.5 MG/2.5 ML VIAL INHALATION (09:59)
[2020-11-25] MEDS: ALBUTEROL SULFATE NEB 2.5 MG/0.5 ML INH 5 MG INHALATION (10:00)
[2020-11-25] MEDS: FUROSEMIDE 20 MG TABLET PO (11:04)
--- NOTE | 2020-11-25 11:06 | P.DS_ITS ---
DS: Admitting Diagnosis Admitting Diagnosis Admitting Diagnosis: Cellulitis lower extremity DS: Discharge Diagnosis Discharge Diagnosis (1) Cellulitis of lower extremity: Qualifiers: Laterality: unspecified laterality Qualified Code(s): L03.119 - Cellulitis of unspecified part of limb Code(s): L03.119 - Cellulitis of unspecified part of limb Status: Acute Assessment and Plan: * Leg is still a bit red, but evenly temperatured, look better today, barely red * 2+ edema on the right lower leg * Start 20mg lasix BID * Primaxin 500mg IV q8hr and Vancomycin 1750mg IV q12 hr * Will change to PO antibiotics Keflex 500mg QID 5 days, and Bactrim 2 tabs of 160/800mg BID * Cultures no growth to date * [place] 1-2 tabs q4hr PRN * Adjust antibiotics as needed * Elevate affected extremity * Diabetic diet (2) Chest pain: Qualifiers: Chest pain type: intercostal pain Qualified Code(s): R07.82 - Intercostal pain Code(s): R07.9 - Chest pain, unspecified Status: Acute Assessment and Plan: * Patient reported chest pain sharp in nature under the left breast * Patient denies pain in jaw, back, head, or other chest areas * Trop negative 0.012 * BNP is elevated 1140 * EKG SR * Cardiac monitoring (3) Syncope: Qualifiers: Syncope type: unspecified Qualified Code(s): R55 - Syncope and collapse Code(s): R55 - Syncope and collapse Status: Acute Assessment and Plan: * Patient stated that she has a cough that causes near syncope/black out/collapse * Probably a vagal response * Patient stated that she thinks it is fluid overload * Gave lasix 11/23/20 with slight relief * Carotid ultrasound <50% bilaterally * Echo EF of 20-25% * Educated patient about slow movements, and pauses between position changes (4) CHF (congestive heart failure): Qualifiers: Heart failure chronicity: acute on chronic Heart failure type: unspecified Qualified Code(s): I50.9 - Heart failure, unspecified Code(s): I50.9 - Heart failure, unspecified Status: Acute Assessment and Plan: * Patient stated that she has a history of CHF * Edema 2+ bilateral lower extremities * Lasix 20mg BID today * I&Os * BNP 1140 * Echo EF 20-25 * Will consider chest xray in the am (5) Iron deficiency anemia: Qualifiers: Iron deficiency anemia type: other iron deficiency Qualified Code(s): D50.8 - Other iron deficiency anemias Code(s): D50.9 - Iron deficiency anemia, unspecified Status: Acute Assessment and Plan: * HGB 7.9 HCT 27.4 * One unit of PRBC on 11/21/20 * Labs in the AM * Iron <10, TIBC 505, Transferrin 295, ferritin 41.6 * Iron Sulfate 324 PO BID * Trend H&H (6) Type 2 diabetes mellitus with hyperglycemia, with long-term current use of insulin: Code(s): E11.65 - Type 2 diabetes mellitus with hyperglycemia; 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
--- NOTE | 2020-11-25 11:06 | PM.DS ---
DS: Admitting Diagnosis Admitting Diagnosis Admitting Diagnosis: Cellulitis lower extremity DS: Discharge Diagnosis Discharge Diagnosis (1) Cellulitis of lower extremity: Qualifiers: Laterality: unspecified laterality Qualified Code(s): L03.119 - Cellulitis of unspecified part of limb Code(s): L03.119 - Cellulitis of unspecified part of limb Status: Acute Assessment and Plan: Leg is still a bit red, but evenly temperatured, look better today, barely red 2+ edema on the right lower leg Start 20mg lasix BID Primaxin 500mg IV q8hr and Vancomycin 1750mg IV q12 hr Will change to PO antibiotics Keflex 500mg QID 5 days, and Bactrim 2 tabs of 160/800mg BID Cultures no growth to date [place] 1-2 tabs q4hr PRN Adjust antibiotics as needed Elevate affected extremity Diabetic diet (2) Chest pain: Qualifiers: Chest pain type: intercostal pain Qualified Code(s): R07.82 - Intercostal pain Code(s): R07.9 - Chest pain, unspecified Status: Acute Assessment and Plan: Patient reported chest pain sharp in nature under the left breast Patient denies pain in jaw, back, head, or other chest areas Trop negative 0.012 BNP is elevated 1140 EKG SR Cardiac monitoring (3) Syncope: Qualifiers: Syncope type: unspecified Qualified Code(s): R55 - Syncope and collapse Code(s): R55 - Syncope and collapse Status: Acute Assessment and Plan: Patient stated that she has a cough that causes near syncope/black out/collapse Probably a vagal response Patient stated that she thinks it is fluid overload Gave lasix 11/23/20 with slight relief Carotid ultrasound <50% bilaterally Echo EF of 20-25% Educated patient about slow movements, and pauses between position changes (4) CHF (congestive heart failure): Qualifiers: Heart failure chronicity: acute on chronic Heart failure type: unspecified Qualified Code(s): I50.9 - Heart failure, unspecified Code(s): I50.9 - Heart failure, unspecified Status: Acute Assessment and Plan: Patient stated that she has a history of CHF Edema 2+ bilateral lower extremities Lasix 20mg BID today I&Os BNP 1140 Echo EF 20-25 Will consider chest xray in the am (5) Iron deficiency anemia: Qualifiers: Iron deficiency anemia type: other iron deficiency Qualified Code(s): D50.8 - Other iron deficiency anemias Code(s): D50.9 - Iron deficiency anemia, unspecified Status: Acute Assessment and Plan: HGB 7.9 HCT 27.4 One unit of PRBC on 11/21/20 Labs in the AM Iron <10, TIBC 505, Transferrin 295, ferritin 41.6 Iron Sulfate 324 PO BID Trend H&H (6) Type 2 diabetes mellitus with hyperglycemia, with long-term current use of insulin: Code(s): E11.65 - Type 2 diabetes mellitus with hyperglycemia; 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 Status: Acute Assessment and Plan: Glucose on labs this am 93 Glucose checks ACHS Lantus 50 SUBQ daily Aspart 20 units Subq with meals and sliding scale Scheduled insulin held at dinner yesterday and 10units for this am Keep glucose around 150 POC glucose 143 (7) Peripheral neuropathy: Qualifiers: Peripheral neuropathy type: polyneuropathy associated with underlying disease Qualified Code(s): G63 - Polyneuropathy in diseases classified elsewhere Code(s): G62.9 - Polyneuropathy, unspecified Status: Acute Assessment and Plan: Continue Home lyrica 150mg BID (8) Atrial flutter: Qualifiers: Atrial flutter type: unspecified Qualified Code(s): I48.92 - Unspecified atrial flutter Code(s): I48.92 - Unspecified atrial flutter Status: Acute Assessment and Plan: Patient 110-120/40-60s Rhythm is normal and S1/S2 present EKG shows Sinus tachycardia (
[2020-11-25 11:59] LABS: Glucose Point of Care 190 mg/dl (65-105)
== END 2020-11-25 13:25 | disposition home or self-care (01) | DRG 603 ==
LOC: ANHED 16:55 → ANH3MED 11-21 01:54
PROVIDERS: Internal Medicine; Admitting Provider Family Medicine; Emergency Provider Emergency Medicine; PCP Internal Medicine; Visit Provider Nurse Practitioner
DX: L03.115 Cellulitis of right lower limb (principal); Z68.41 Body mass index [BMI] 40.0-44.9, adult; I42.9 Cardiomyopathy, unspecified; I48.92 Unspecified atrial flutter; N17.9 Acute kidney failure, unspecified; E11.40 Type 2 diabetes mellitus with diabetic neuropathy, unspecified; Z79.4 Long term (current) use of insulin; I50.9 Heart failure, unspecified; I48.91 Unspecified atrial fibrillation; I25.10 Atherosclerotic heart disease of native coronary artery without angina pectoris; G25.81 Restless legs syndrome; E66.9 Obesity, unspecified; G62.9 Polyneuropathy, unspecified; I34.0 Nonrheumatic mitral (valve) insufficiency; D50.9 Iron deficiency anemia, unspecified; E11.65 Type 2 diabetes mellitus with hyperglycemia; J44.9 Chronic obstructive pulmonary disease, unspecified; Z98.84 Bariatric surgery status
CPT/HCPCS: 36415; 36430; 51701; 80048; 80053; 80202; 81001; 82607; 82728; 82746; 82948; 83540; 83550; 83605; 83735; 83880; 84443; 84466; 84484; 85014; 85018; 85025; 85027; 85610; 85730; 86140; 86850; 86900; 86901; 86920; 87040; 93005; 93306; 93880; 93970; 94640; 96361; 96365; 96366; 96367; 96368; 96375; 96376; 97110; 97116; 97161; 97165; 97530; 97535; 99285; A9270; G0378; J0131; J0743; J1756; J1815; J1940; J3370; J7030; J7050; J7120; P9016

== ENCOUNTER 2020-12-11 12:45 | Outpatient (CLI) | payer MEDICARE, SELFPAY ==
[2020-12-11 13:08] LABS: Hematocrit 34.8 % (37.0-47.0); Hemoglobin 10.4 g/dL (12.0-15.0); Mean Corpuscular HGB Conc 29.9 g/dl (32-36); Mean Corpuscular Hemoglobin 22.7 pg (26-34); Mean Platelet Volume 9.9 fl (7.4-10.4); Platelet Count Result 243 k/mm3 (150-375); Red Blood Count 4.58 M/mm3 (4.2-5.4); Red Cell Distribution Width 26.7 % (11.5-14.5); White Blood Count 3.9 K/mm3 (4.5-10.0)
[2020-12-11 13:32] LABS: Alanine Aminotransferase 23 U/L (4-35); Albumin Level 3.6 g/dL (3.5-5.1); Alkaline Phosphatase 94 U/L (38-126); Anion Gap 7 mmol/L (8-16); Aspartate Amino Transferase 24 U/L (14-36); Bilirubin,Total 0.3 mg/dL (0.2-1.3); Blood Urea Nitrogen 27 mg/dL (7-17); Calcium 9.2 mg/dL (8.4-10.2); Carbon Dioxide 28 mmol/L (22-30); Chloride 104 mmol/L (98-107); Estimated Glomerular Filt Rate > 60; Glucose 261 mg/dL (65-105); Potassium 4.3 mmol/L (3.4-5.0); Sodium 139 mmol/L (137-145)
[2020-12-11 14:25] LABS: Band Neutrophils Percent 3 % (0-6); Basophils Absolute Manual 0.03 K/mm3 (0.0-0.1); Basophils Percent Manual 1 % (0-1); Eosinophils Absolute Manual 0.15 K/mm3 (0.02-0.5); Eosinophils Percent Manual 4 % (0-4); Hypochromasia 1+ (NORMAL); Lymphocytes Absolute Manual 0.81 K/mm3 (1.1-4.5); Monocytes Absolute Manual 0.58 K/mm3 (0.1-0.90); Monocytes Percent Manual 15 % (3-9); Neutrophils Percent Manual 56 % (46-73); Platelet Estimate Adequate (Adequate); Total Cells Counted 100
[2020-12-11 14:26] LABS: Anisocytosis 1+ (NORMAL); Atypical Lymphocytes Present
== END 2020-12-11 12:46 | disposition home or self-care (01) ==
PROVIDERS: PCP Internal Medicine; Visit Provider Clinical Nurse Specialist
DX: D50.8 Other iron deficiency anemias (principal); N17.9 Acute kidney failure, unspecified
CPT/HCPCS: 36415; 80053; 85025

== ENCOUNTER 2021-01-14 10:56 | Outpatient (CLI) | payer MEDICARE, SELFPAY ==
[2021-01-14 12:20] LABS: Basophils Absolute Auto 0.1 K/mm3 (0.0-0.1); Basophils Percent Auto 0.7 % (0.2-1.2); Eosinophils Absolute Auto 0.1 K/mm3 (0-0.3); Eosinophils Percent Auto 1.3 % (0-4.4); Hematocrit 39.8 % (37.0-47.0); Hemoglobin 12.2 g/dL (12.0-15.0); Immature Granulocyte Absolute 0.02 K/mm3 (0.00-0.031); Immature Granulocyte Percent A 0.3 % (0-0.5); Lymphocytes Absolute Auto 1.16 K/mm3 (0.9-3.2); Lymphocytes Percent Auto 15.6 % (18.3-44.2); Mean Corpuscular HGB Conc 30.7 g/dl (32-36); Mean Corpuscular Hemoglobin 25.7 pg (26-34); Mean Corpuscular Volume 83.8 fl (80-100); Mean Platelet Volume 10.5 fl (7.4-10.4); Monocytes Absolute Auto 0.6 K/mm3 (0.1-0.6); Neutrophils Absolute Auto 5.5 K/mm3 (1.3-6.7); Neutrophils Percent Auto 74.1 % (45.5-73.1); Platelet Count Result 180 k/mm3 (150-375); Red Blood Count 4.75 M/mm3 (4.2-5.4); Red Cell Distribution Width 21.7 % (11.5-14.5); White Blood Count 7.4 K/mm3 (4.5-10.0)
[2021-01-14 12:40] LABS: Iron 57 ug/dL (37-170)
[2021-01-14 12:50] LABS: Percent Iron Saturation 15 % (20-50)
[2021-01-14 13:20] LABS: Folic Acid 12.3 ng/mL (2.76->20)
== END 2021-01-14 10:57 | disposition home or self-care (01) ==
LOC: ANHLAB 11:01
PROVIDERS: PCP Internal Medicine; Visit Provider Clinical Nurse Specialist
DX: D64.9 Anemia, unspecified (principal)
CPT/HCPCS: 36415; 82607; 82728; 82746; 83540; 83550; 85025

== ENCOUNTER 2021-01-21 14:18 | Outpatient (CLI) | payer MEDICARE, SELFPAY ==
[2021-01-21 16:34] LABS: HDL Direct 53 mg/dL
[2021-01-21 16:45] LABS: LDL Cholesterol Direct 119 mg/dL
[2021-01-21 17:15] LABS: Hemoglobin A1C 8.2 % (<5.7)
== END 2021-01-21 14:19 | disposition home or self-care (01) ==
LOC: ANHWCLAB 14:20
PROVIDERS: PCP Internal Medicine; Visit Provider Internal Medicine Endocrinology, Diabetes & Metabolism
DX: E11.65 Type 2 diabetes mellitus with hyperglycemia (principal); Z79.4 Long term (current) use of insulin
CPT/HCPCS: 36415; 83036; 83718; 83721

== ENCOUNTER 2021-04-03 16:58 | Outpatient (CLI) | payer MEDICARE, SELFPAY ==
--- NOTE | ~2021-04-03 | XR_ITS ---
EXAMINATION: XR chest 2V DATE: 04/03/2021 17:20 INDICATION: Shortness of breath TECHNIQUE: PA and lateral views of the chest are obtained. COMPARISON: 07/14/2020 FINDINGS: The lungs are free of acute opacities. There is no pleural effusion or pneumothorax. Cardia c megaly is noted. Again noted is a radiopaque implant overlying the heart. There is mild thoracic sp ondylosis. Surgical clips in the right upper quadrant are likely from prior cholecystectomy. IMPRESSION: 1. Stable cardiomegaly. Reviewed, dictated and finalized at location A. IMPRESSION: 1. Stable cardiomegaly.
== END 2021-04-03 16:59 | disposition home or self-care (01) ==
LOC: ANHIMG 17:06
PROVIDERS: PCP Internal Medicine; Visit Provider Nurse Practitioner
DX: R06.02 Shortness of breath (principal); I51.7 Cardiomegaly
CPT/HCPCS: 71046

== ENCOUNTER 2021-06-01 09:58 | Inpatient (IN) | payer MEDICARE, SELFPAY ==
[2021-06-01] VITALS (35 sets, daily range): BP systolic 109–131; BP diastolic 57–84; PULSE 75–103; RESP 12–22; TEMP 36.4–36.9; O2SAT 91–99; BMI 40.1
--- NOTE | ~2021-06-01 | XR_ITS ---
EXAMINATION: XR chest 2V DATE: 06/01/2021 10:22 INDICATION: Cough TECHNIQUE: AP and lateral views of the chest are obtained. COMPARISON: 04/03/2021 FINDINGS: The lungs are free of acute opacities. There is no pleural effusion or pneumothorax. The ca rdiomediastinal silhouette is normal. A metallic implant overlies the heart. There is mild thoracic s pondylosis. Cholecystectomy clips are noted. IMPRESSION: 1. No acute cardiopulmonary abnormality. Reviewed, dictated and finalized at location A. ING ASSOCIATE
--- NOTE | ~2021-06-01 | US_ITS ---
EXAMINATION: US abdomen limited DATE: 06/02/2021 10:18 INDICATION: Elevated liver function tests TECHNIQUE: Multiple grayscale and Doppler ultrasound images of the abdomen were obtained. COMPARISON: CT, 09/04/2019 FINDINGS: Bowel gas obscures visualization of the pancreas. The liver is normal with normal echogenic ity and echotexture. No surface nodularity. Normal hepatopetal flow in the main portal vein. The gall bladder is surgically absent. The normal common bile duct measures 3 mm. There was no sonographic Mur phy sign. IMPRESSION: 1. No sonographic correlate for elevated liver enzymes. Reviewed, dictated and finalized at location A. WRAPPER OPERATOR
--- NOTE | ~2021-06-01 | XR_ITS ---
XR chest 2V 06/05/2021 13:54 Indication: Dyspnea. History of COPD. Procedure: 2 view chest Comparison: Comparison to multiple prior studies sequentially, with oldest reviewed study dated 10/2020. Findings: Heart size normal. No focal air space disease, pulmonary edema, pleural effusion or suspect ed pneumothorax. No acute osseous abnormality. Impression: 1: No acute cardiopulmonary disease. Reviewed, dictated and finalized at location B. S REPRESENTATIVE SALES MANAGER Impression: 1: No acute cardiopulmonary disease.
--- NOTE | 2021-06-01 10:04 | ECG_ITS ---
Measurements Intervals [place] Rate: 89 P: 44 IN: 184 QRS: 119 QRSD: 178 T: 23 QT: 413 QTc: 503 Interpretive Statements SINUS RHYTHM RIGHT AXIS DEVIATION RIGHT BUNDLE BRANCH BLOCK BASELINE ARTIFACT- I, II, III, AVR, AVL ABNORMAL ECG Electronically Signed On 06-01-2021 15:51:44 INSURANCE RISK ANALYST by Narinder Roche D.O.
[2021-06-01 10:37] LABS: Basophils Percent Auto 0.5 % (0.2-1.2); Eosinophils Absolute Auto 0.1 K/mm3 (0-0.3); Eosinophils Percent Auto 2.1 % (0-4.4); Hematocrit 38.2 % (37.0-47.0); Hemoglobin 12.9 g/dL (12.0-15.0); Immature Granulocyte Absolute 0.03 K/mm3 (0.00-0.031); Immature Granulocyte Percent A 0.5 % (0-0.5); Lymphocytes Absolute Auto 1.27 K/mm3 (0.9-3.2); Lymphocytes Percent Auto 20.3 % (18.3-44.2); Mean Corpuscular HGB Conc 33.8 g/dl (32-36); Mean Corpuscular Hemoglobin 29.1 pg (26-34); Monocytes Absolute Auto 0.4 K/mm3 (0.1-0.6); Monocytes Percent Auto 6.9 % (2.6-8.5); Neutrophils Absolute Auto 4.4 K/mm3 (1.3-6.7); Neutrophils Percent Auto 69.7 % (45.5-73.1); Platelet Count Result 159 k/mm3 (150-375); Red Blood Count 4.44 M/mm3 (4.2-5.4); Red Cell Distribution Width 14.3 % (11.5-14.5); White Blood Count 6.3 K/mm3 (4.5-10.0)
--- NOTE | 2021-06-01 10:48 | ED.URI ---
HPI - URI/Sore Throat General Chief Complaint: Upper Respiratory Infection Stated Complaint: COUGH,SOB Time Seen by Provider: 06/01/21 10:09 Source: patient Mode of arrival: EMS Limitations: no limitations History of Present Illness HPI Narrative: This is a 66-year-old female that presents to the emergency department for cold symptoms ongoing over the last week. Reports low-grade fever and productive cough. Reports history of COPD. She has been using her breathing treatments with little relief. Reports she has had so much coughing that it is starting to make her have chest pain. The chest pain is worse with coughing and sometimes with exertion. It is a dull, achy pain substernally. She also has history of CHF and has had a mitral valve repair. Her valet attendant is Dr. Mishra. She is Covid vaccinated. Denies lower extremity edema. Related Data Home Medications Medication Instructions Recorded Confirmed acetaminophen 325 mg capsule 325 mg PO Q6H PRN 01/21/21 05/16/21 albuterol sulfate 90 mcg/actuation 1 inh INHALATION Q4H 01/21/21 05/16/21 aerosol inhaler budesonide-formoterol HFA 160 2 puff INHALATION Q12H 01/21/21 05/16/21 mcg-4.5 mcg/actuation aerosol inhaler cyclobenzaprine 10 mg tablet 10 mg PO BID tablet 01/21/21 05/16/21 fluticasone propionate 50 1 spray INTRANASAL DAILY 01/21/21 05/16/21 mcg/actuation nasal spray,suspension hydrocodone 5 mg-acetaminophen 325 1 tablet PO Q8H PRN 01/21/21 05/16/21 mg tablet carvedilol 25 mg tablet 12.5 mg PO BID tablet 04/03/21 05/16/21 insulin degludec 100 unit/mL (3 35 unit SUBCUT DAILY ml 04/03/21 05/16/21 mL) subcutaneous pen rivaroxaban 20 mg tablet 20 mg PO DAILY 04/03/21 05/16/21 sacubitril 24 mg-valsartan 26 mg 1 tablet PO BID tablet 04/03/21 05/16/21 tablet furosemide 40 mg tablet 40 mg PO DAILY tablet 05/14/21 05/16/21 insulin lispro 100 unit/mL 10 unit SUBCUT TID ml 05/14/21 05/16/21 subcutaneous pen Allergies Allergy/AdvReac Type Severity Reaction Status Date / Time latex Allergy Severe HIVES Verified 05/14/21 14:02 Penicillins Allergy Severe HIVES Verified 05/14/21 14:02 cephalexin [From Keflex] Allergy Diarrhea Verified 05/14/21 14:02 diphenhydramine AdvReac Intermediate JERKY/JUMPY, Verified 05/14/21 14:02 GO CRAZY IN MY SKIN codeine AdvReac Mild NAUSEA/VOMI Verified 05/14/21 14:02 TING Review of Systems Review of Systems: CONSTITUTIONAL: Denies fever ENT: Reports congestion CARDIOVASCULAR: Reports chest pain. Denies edema. RESPIRATORY: Reports cough and dyspnea. All systems reviewed & are unremarkable except as noted in HPI and below PMFSH Past Medical History Medical History (Updated 06/01/21 @ 15:15 by Radhika Mcwilliams PA-C) ANDREA (acute kidney injury) Anisocoria Asthma Atrial fibrillation Bipolar disorder Celiac disease CHF (congestive heart failure) COPD (chronic obstructive pulmonary disease) Coronary artery disease Diabetes mellitus with neurologic complication, with long-term current use of insulin GERD (gastroesophageal reflux disease) Influenza A Insulin pump titration Kidney stones Multiple with at least 2 surgeries. Peripheral neuropathy RLS (restless legs syndrome) Syncope Thyroid disease Patient no longer takes thyroid medicine. Type 2 diabetes mellitus without complications The patient has an insulin pump. Surgical History Surgical History H/O section H/O gastric bypass H/O: hysterectomy History of bladder surgery History of carpal tunnel release of both wrists History of cholecystectomy History of cystoscopy History of esophagogastroduodenoscopy (EGD) History of lithotripsy History of total right knee replacement (TKR) Multiple kidney stones Surgery X2 Family History Family History Father Diabetes mellitus Acute myocardial infarction Mother Dec
[2021-06-01] MEDS: methylPREDNISolone SOD SUCC 125 MG VIAL IV PUSH (10:54)
[2021-06-01] MEDS: IPRATROPIUM BR 0.02% INH SOLN 0.5 MG/2.5 ML VIAL INHALATION ×2 (10:54→13:48)
[2021-06-01 10:55] LABS: Partial Thromboplastin Time 27.5 SECONDS (22.3-36.8)
[2021-06-01] MEDS: ALBUTEROL SULFATE NEB 2.5 MG/0.5 ML INH 5 MG INHALATION ×2 (10:55→13:48)
[2021-06-01 10:56] LABS: Alanine Aminotransferase 75 U/L (4-35); Albumin Level 3.5 g/dL (3.5-5.1); Alkaline Phosphatase 191 U/L (38-126); Anion Gap 4 mmol/L (8-16); Aspartate Amino Transferase 132 U/L (14-36); Bilirubin,Total 0.6 mg/dL (0.2-1.3); Blood Urea Nitrogen 24 mg/dL (7-17); Carbon Dioxide 30 mmol/L (22-30); Chloride 104 mmol/L (98-107); Estimated CRCL calculation 86 ml/min; Estimated Glomerular Filt Rate > 60; Glucose 249 mg/dL (65-110); Potassium 4.3 mmol/L (3.4-5.0); Sodium 138 mmol/L (137-145)
[2021-06-01 10:59] LABS: Lipase 90 U/L (23-300)
[2021-06-01 11:08] LABS: NT Pro B Type Natriuretic Pept 314 pg/mL (5-100); Troponin I < 0.012 ng/mL (0.000-0.034)
[2021-06-01 14:00] LABS: Troponin I < 0.012 ng/mL (0.000-0.034)
--- NOTE | 2021-06-01 15:00 | PM.IMHP ---
H&P: HPI History of Present Illness Date/Time: 06/01/21 15:00 Chief Complaint: Cough, chest pain, and shortness of breath. Narrative: This is a 66-year-old female with COPD, coronary artery disease, systolic and diastolic congestive heart failure, insulin-dependent type 2 diabetes mellitus, hypertension, hyperlipidemia, paroxysmal atrial fibrillation/flutter, rheumatoid arthritis, and several other comorbidities who presented to the emergency department earlier today via EMS from home for evaluation of cough, chest pain, and shortness of breath. She reports chronic, mild dyspnea on exertion though that has improved significantly since MitraClip done sometime last year. Occasionally she will have COPD exacerbations typically precipitated by cold symptoms and she does report that her [id number] granddaughter had a cough and sniffles about a week ago when she was baby-sitting her. Since that time she has developed a cough occasionally productive of dark yellow/brown sputum, wheezing, and progressive dyspnea on lesser and lesser exertion. She has been using her inhalers and nebulizers though they have not provided her with longstanding relief. This morning she was having significant pain diffusely throughout her chest and ribs after a coughing jag and thus she came in for evaluation. She and her family members are vaccinated for COVID-19. She has not had any significant chills or sweats but reports a low-grade fever up to 100? F a couple of days ago. She has not had any significant sinus congestion or sore throat but she does endorse decreased sense of smell and taste. She has had occasional nausea and vomiting although that is not unusual for her since she had bypass surgery many years ago. She denies diarrhea. No concerns for aspiration. She has not had exertional chest pain. No syncope or near syncope. Review of Systems Review of Systems: Twelve systems were reviewed. Weight has remained stable. No headache or neck ache. No hemoptysis. She denies diarrhea. No dysuria. Denies blurry vision, polydipsia, and polyuria. No significant edema for the 1st time in many years since she had MitraClip done last year. Except as documented, all other systems were reviewed and are negative. [facility] Past Medical History Medical History (Updated 06/01/21 @ 22:25 by Ameena Alberts PA-C) Asthma Asthma Bipolar disorder Celiac disease Chronic anticoagulation On Xarelto for paroxysmal atrial fibrillation/flutter. Chronic obstructive pulmonary disease Coronary artery disease Diffuse severe LAD disease with positive IFR and moderate RCA disease noted on cardiac catheterization in 2019. Managed medically. Diabetic peripheral neuropathy Diverticulosis Gastroesophageal reflux disease Heart failure with reduced ejection fraction Follows with [facility] and Dr. Mishra. EF was 50% following MitraClip in 2019 though was her most recent ejection fraction was 20 to 25% in November 2020. Hyperlipidemia Hypertension Insulin dependent type 2 diabetes mellitus Hemoglobin A1c was 8.5% on 05/16/2021. Iron deficiency anemia With history of blood transfusion. Kidney stones Morbid obesity Status post gastric bypass surgery in September 2002 with a preoperative weight of 280 lb. Obstructive sleep apnea Paroxysmal atrial fibrillation Restless leg syndrome Rheumatoid arthritis Severe mitral valve regurgitation Status post MitraClip in 2019. Thyroid disease Patient no longer takes thyroid medicine. Transient ischemic attack Urinary incontinence Surgical History Surgical History (Updated 06/01/21 @ 15:58 by Ameena Alberts PA-C) Gastric bypass status for obesity (09/2002) H/O section History of bilateral carpal tunnel release History of bladder surgery Insertion of bladder stimulator for urinary incontinence. History of cholecystectomy History of cystoscopy History of esophagogastroduodenoscopy (EGD) History of hysterectomy for benign disease Histo
[2021-06-01 15:01] LABS: CRP < 0.5 mg/dL (<1.0); Lactate Dehydrogenase 709 U/L (313-618)
--- NOTE | 2021-06-01 16:11 | ADMGEN ---
This patient, Charlene Chen, was admitted to IMU Room 212-01. Patient/family oriented to hospital policies and general routines including ID bracelet, bed and alarms, visiting hours, pain management, procedures, bathroom and other care routines, personal items, smoking policy, room service/diet, and visiting hours. Information on how to activate the Rapid Response Team has been discussed. Patient/Family are encouraged to report perceived risks to care and to ask questions if they do not understand what they are told or what they should do.
[2021-06-01 16:47] LABS: Alanine Aminotransferase 70 U/L (4-35); Albumin Level 3.6 g/dL (3.5-5.1); Alkaline Phosphatase 201 U/L (38-126); Aspartate Amino Transferase 76 U/L (14-36); Bilirubin,Total 0.6 mg/dL (0.2-1.3)
[2021-06-01 17:00] LABS: Troponin I < 0.012 ng/mL (0.000-0.034)
[2021-06-01 17:04] LABS: Procalcitonin 0.1 ng/mL
[2021-06-01 17:40] LABS: Glucose Point of Care 299 mg/dl (65-105)
[2021-06-01 19:57] LABS: SARS-CoV-2 RNA PCR Negative
[2021-06-01 20:34] LABS: Glucose Point of Care 420 mg/dl (65-105)
[2021-06-01] MEDS: INSULIN ASPART (*BKC) 100 UNITS/ML 10 UNITS SUB-Q (20:58)
[2021-06-01] MEDS: SACUBITRIL/VALSARTAN 24-26 MG TABLET 1 TAB PO (23:28)
[2021-06-01] MEDS: rOPINIRole HCL 1 MG TABLET 3 MG PO (23:28)
[2021-06-01] MEDS: FUROSEMIDE 20 MG TABLET PO (23:28)
[2021-06-01] MEDS: AZITHROMYCIN 250 MG TABLET 500 MG PO (23:28)
[2021-06-01] MEDS: carvediloL 12.5 MG TABLET PO (23:28)
[2021-06-01] MEDS: PREGABALIN (*CRX) 75 MG CAPSULE 150 MG PO (23:29)
[2021-06-02] VITALS (24 sets, daily range): BP systolic 92–151; BP diastolic 52–76; PULSE 63–105; RESP 16–20; TEMP 36.4–37; O2SAT 94–97
[2021-06-02 00:04] LABS: Glucose Point of Care 289 mg/dl (65-105)
[2021-06-02] MEDS: SIMETHICONE 80 MG TAB.CHEW PO (01:00)
[2021-06-02] MEDS: ALBUTEROL SULFATE NEB 2.5 MG/0.5 ML INH INHALATION ×3 (02:08→20:21)
[2021-06-02] MEDS: IPRATROPIUM BR 0.02% INH SOLN 0.5 MG/2.5 ML VIAL INHALATION ×3 (02:09→20:21)
[2021-06-02 04:49] LABS: Hematocrit 40.6 % (37.0-47.0); Hemoglobin 13.4 g/dL (12.0-15.0); Mean Corpuscular Hemoglobin 28.8 pg (26-34); Mean Corpuscular Volume 87.3 fl (80-100); Mean Platelet Volume 10.4 fl (7.4-10.4); Platelet Count Result 189 k/mm3 (150-375); Red Blood Count 4.65 M/mm3 (4.2-5.4); Red Cell Distribution Width 14.3 % (11.5-14.5)
[2021-06-02 05:12] LABS: Alanine Aminotransferase 62 U/L (4-35); Albumin Level 3.7 g/dL (3.5-5.1); Alkaline Phosphatase 185 U/L (38-126); Anion Gap 4 mmol/L (8-16); Aspartate Amino Transferase 50 U/L (14-36); Bilirubin,Total 0.7 mg/dL (0.2-1.3); Blood Urea Nitrogen 23 mg/dL (7-17); Calcium 9.7 mg/dL (8.4-10.2); Carbon Dioxide 33 mmol/L (22-30); Chloride 100 mmol/L (98-107); Estimated CRCL calculation 84 ml/min; Estimated Glomerular Filt Rate > 60; Glucose 300 mg/dL (65-110); Magnesium 2.2 mg/dL (1.6-2.3); Potassium 4.3 mmol/L (3.4-5.0); Sodium 137 mmol/L (137-145)
--- NOTE | 2021-06-02 07:50 | P.PNIM_ITS ---
Progress Note: A&P Assessment and Plan (1) Chest pain: Qualifiers: Chest pain type: unspecified Qualified Code(s): R07.9 - Chest pain, unspecified Code(s): R07.9 - Chest pain, unspecified Status: Acute Assessment and Plan: * Likely due to ongoing coughing over the last week * No significant pleuritic component * Hx of coronary artery disease however this seems inconsistent with cardiac chest pain * telemetry overnight no events noted * troponin negative * Patient sees Dr. Mishra and has an appointment coming up (2) COPD exacerbation: Code(s): J44.1 - Chronic obstructive pulmonary disease with (acute) exacerbation Status: Acute Assessment and Plan: * Complaints of increased wheezes, sputum with color changes (Brown and green), and Short of breath * Scheduled nebulizers * Prednisone 40mg PO daily * azithromycin for 5 days for symptoms listed * Sputum culture ordered (3) Heart failure with reduced ejection fraction: Code(s): I50.20 - Unspecified systolic (congestive) heart failure Status: Acute Assessment and Plan: * Clinically compensated * BNP elevated 314 * 1-2+ pitting edema * Furosemide 20mg PO BID changed to 40mg IV BID per cardiology * Chest xray shows no cardiopulmonary disease (4) Insulin dependent type 2 diabetes mellitus: Code(s): E11.9 - Type 2 diabetes mellitus without complications; Z79.4 - terminal carman (current) use of insulin Status: Acute Assessment and Plan: * Glucose is 300 on labs * Could be more elevated from steroids * Basal insulin 30 units Daily * Initiate sliding scale insulin * Accu-Cheks * hypoglycemic protocol * Hemoglobin A1c on 05/16/21 8.5 * Adjust medications as needed (5) Elevated LFTs: Code(s): R79.89 - Other specified abnormal findings of blood chemistry Status: Acute Assessment and Plan: * AST/ALT 50/62 * LFT elevations over the years * Check hepatitis panel in the am * Continue to trend LFTs * Abd ultrasound pending (6) Chronic anticoagulation: Code(s): Z79.01 - [facility]FP (current) use of anticoagulants Status: Acute Assessment and Plan: * Continue rivaroxaban for stroke prophylaxis * hx of paroxysmal atrial fibrillation/flutter * EKG shows SR * PT/PTT/INR normal (7) Hypertension: Code(s): I10 - Essential (primary) hypertension Status: Acute Assessment and Plan: * Current BP 122/69 * Continue home carvedilol 12.5 PO BID, Imdur 30mg PO daily, Entresto 1 tab Q12hr * Trend blood pressures * Adjust therapies as needed Time Spent With Patient Time with patient: 25 - 35 minutes Subjective Date/time seen: 06/02/21 07:50 Interval history: Date/Time: 06/01/21 15:00 Narrative: This is a 66-year-old female with COPD, coronary artery disease, systolic and diastolic congestive heart failure, insulin-dependent type 2 diabetes mellitus, hypertension, hyperlipidemia, paroxysmal atrial fibrillation/flutter, rheumatoid arthritis, and several other comorbidities who presented to the emergency department earlier today via EMS from home for evaluation of cough, chest pain, and shortness of breath. She reports chronic, mild dyspnea on exertion though that has improved significantly since MitraClip done sometime last year. Occasionally she will have COPD exacerbations typically precipitated by cold symptoms and she does report th
--- NOTE | 2021-06-02 07:50 | PM.IMPN ---
Progress Note: A&P Assessment and Plan (1) Chest pain: Qualifiers: Chest pain type: unspecified Qualified Code(s): R07.9 - Chest pain, unspecified Code(s): R07.9 - Chest pain, unspecified Status: Acute Assessment and Plan: Likely due to ongoing coughing over the last week No significant pleuritic component Hx of coronary artery disease however this seems inconsistent with cardiac chest pain telemetry overnight no events noted troponin negative Patient sees Dr. Mishra and has an appointment coming up (2) COPD exacerbation: Code(s): J44.1 - Chronic obstructive pulmonary disease with (acute) exacerbation Status: Acute Assessment and Plan: Complaints of increased wheezes, sputum with color changes (Brown and green), and Short of breath Scheduled nebulizers Prednisone 40mg PO daily azithromycin for 5 days for symptoms listed Sputum culture ordered (3) Heart failure with reduced ejection fraction: Code(s): I50.20 - Unspecified systolic (congestive) heart failure Status: Acute Assessment and Plan: Clinically compensated BNP elevated 314 1-2+ pitting edema Furosemide 20mg PO BID changed to 40mg IV BID per cardiology Chest xray shows no cardiopulmonary disease (4) Insulin dependent type 2 diabetes mellitus: Code(s): E11.9 - Type 2 diabetes mellitus without complications; Z79.4 - predatory animal exterminator (current) use of insulin Status: Acute Assessment and Plan: Glucose is 300 on labs Could be more elevated from steroids Basal insulin 30 units Daily Initiate sliding scale insulin Accu-Cheks hypoglycemic protocol Hemoglobin A1c on 05/16/21 8.5 Adjust medications as needed (5) Elevated LFTs: Code(s): R79.89 - Other specified abnormal findings of blood chemistry Status: Acute Assessment and Plan: AST/ALT 50/62 LFT elevations over the years Check hepatitis panel in the am Continue to trend LFTs Abd ultrasound pending (6) Chronic anticoagulation: Code(s): Z79.01 - predatory animal exterminator (current) use of anticoagulants Status: Acute Assessment and Plan: Continue rivaroxaban for stroke prophylaxis hx of paroxysmal atrial fibrillation/flutter EKG shows SR PT/PTT/INR normal (7) Hypertension: Code(s): I10 - Essential (primary) hypertension Status: Acute Assessment and Plan: Current BP 122/69 Continue home carvedilol 12.5 PO BID, Imdur 30mg PO daily, Entresto 1 tab Q12hr Trend blood pressures Adjust therapies as needed Time Spent With Patient Time with patient: 25 - 35 minutes Subjective Date/time seen: 06/02/21 07:50 Interval history: Date/Time: 06/01/21 15:00 Narrative: This is a 66-year-old female with COPD, coronary artery disease, systolic and diastolic congestive heart failure, insulin-dependent type 2 diabetes mellitus, hypertension, hyperlipidemia, paroxysmal atrial fibrillation/flutter, rheumatoid arthritis, and several other comorbidities who presented to the emergency department earlier today via EMS from home for evaluation of cough, chest pain, and shortness of breath. She reports chronic, mild dyspnea on exertion though that has improved significantly since MitraClip done sometime last year. Occasionally she will have COPD exacerbations typically precipitated by cold symptoms and she does report that her [id number] granddaughter had a cough and sniffles about a week ago when she was baby-sitting her. Since that time she has developed a cough occasionally productive of dark yellow/brown sputum, wheezing, and progressive dyspnea on lesser and lesser exertion. She has been using her inhalers and nebulizers though they have not provided her with longstanding relief. This morning she was having significant pain diffusely throughout her chest and ribs after a coughing jag and thus she came in for evaluation. She a
[2021-06-02 08:27] LABS: Glucose Point of Care 265 mg/dl (65-105)
[2021-06-02] MEDS: FLUTICASONE/SALMETEROL 115-21 MCG INHALER 1 PUFF 2 PUFF INHALATION ×2 (08:53→20:30)
[2021-06-02] MEDS: ATORVASTATIN 40 MG TABLET PO (09:32)
[2021-06-02] MEDS: carvediloL 12.5 MG TABLET PO ×2 (09:32→20:48)
[2021-06-02] MEDS: FERROUS SULFATE 324 MG TABLET PO ×2 (09:32→17:22)
[2021-06-02] MEDS: predniSONE 20 MG TABLET 40 MG PO (09:32)
[2021-06-02] MEDS: FUROSEMIDE 20 MG TABLET PO (09:33)
[2021-06-02] MEDS: ISOSORBIDE MONONITRATE 30 MG TAB.ER.24H PO (09:33)
[2021-06-02] MEDS: SACUBITRIL/VALSARTAN 24-26 MG TABLET 1 TAB PO ×2 (09:33→20:48)
[2021-06-02] MEDS: INSULIN GLARGINE (*BKC) 100 UNITS/ML 30 UNITS SUB-Q (09:36)
[2021-06-02] MEDS: INSULIN ASPART (*BKC) 100 UNITS/ML 10 UNITS SUB-Q ×3 (09:36→17:23)
[2021-06-02] MEDS: PREGABALIN (*CRX) 75 MG CAPSULE 150 MG PO ×2 (09:37→20:48)
--- NOTE | 2021-06-02 11:54 | PM.CNCAR ---
Assessment and Plan Additional Plan acute on chronic systolic heart failure, Hx of mitral clip, hx of paroxysmal AF, DM, chets pain could be related to CHF vs UA with underlying known diffuse disease in LAD not amenable for intervention, plan IV lasix 40 mg BID, cont coreg and entresto, cont xarelto, increase imdur ot 60 mg daily History of Present Illness History of Present Illness Consult date/time: 06/02/21 11:54 Consult reason: chest pain Reason For Visit: copd exacerbation,chest pain,coronavirus pui Narrative: 66 yrs old female with Hx of COPD, CAD, CHF, DM paroxysmal AF, RA, HFrEF and sever MR s/p Mitral clip, presented for evaluation of chest pain and SOB. She had Hx of chronic SOB that improved with Shannon-clip last year. She has been complaining of progressive SOB last few days with dry cough for one week, cough was severe and dry, she couldn't lie flat, last 2 days associated with chest discomfort,moderate to sever, across chest non radiating associated with Nausea. Review of Systems Review of Systems: All systems reviewed & are unremarkable except as noted in HPI and below PMFSH Past Medical History Medical History (Updated 06/02/21 @ 11:27 by CHANO Bland) Asthma Asthma Bipolar disorder Celiac disease Chronic anticoagulation On Xarelto for paroxysmal atrial fibrillation/flutter. Chronic obstructive pulmonary disease Coronary artery disease Diffuse severe LAD disease with positive IFR and moderate RCA disease noted on cardiac catheterization in 2019. Managed medically. Diabetic peripheral neuropathy Diverticulosis Gastroesophageal reflux disease Heart failure with reduced ejection fraction Follows with [facility] and Dr. Mishra. EF was 50% following MitraClip in 2019 though was her most recent ejection fraction was 20 to 25% in November 2020. Hyperlipidemia Hypertension Insulin dependent type 2 diabetes mellitus Hemoglobin A1c was 8.5% on 05/16/2021. Iron deficiency anemia With history of blood transfusion. Kidney stones Morbid obesity Status post gastric bypass surgery in September 2002 with a preoperative weight of 280 lb. Obstructive sleep apnea Paroxysmal atrial fibrillation Restless leg syndrome Rheumatoid arthritis Severe mitral valve regurgitation Status post MitraClip in 2019. Thyroid disease Patient no longer takes thyroid medicine. Transient ischemic attack Urinary incontinence Surgical History Surgical History (Updated 06/01/21 @ 15:58 by Ameena Alberts PA-C) Gastric bypass status for obesity (09/2002) H/O section History of bilateral carpal tunnel release History of bladder surgery Insertion of bladder stimulator for urinary incontinence. History of cholecystectomy History of cystoscopy History of esophagogastroduodenoscopy (EGD) History of hysterectomy for benign disease History of lithotripsy History of right knee joint replacement (2008) Multiple kidney stones Surgery X2 Family History Family History Father Diabetes mellitus Acute myocardial infarction Mother Family history of peptic ulcer Family history of chronic obstructive pulmonary disease, Onset Age: 92 CHF (congestive heart failure) Daughter Cancer Other Cerebrovascular accident Family history of arthritis Family history of cardiovascular disease Family history of congestive heart failure Family history of mental disorder Social History Social History (Updated 06/01/21 @ 22:25 by Ameena Alberts PA-C) Social History: Surrogate decision maker: Galindo Chen, spouse. Code status: Full code. Smoking status: Former smoker Second hand tobacco smoke exposure: Yes Alcohol intake: never Substance use: never Substance use type: does not use Additional living arrangements comments: The patient lives in [place] with her . Additional occupation/education comm
[2021-06-02] MEDS: AZITHROMYCIN 250 MG TABLET PO (12:50)
[2021-06-02 13:06] LABS: Glucose Point of Care 200 mg/dl (65-105)
--- NOTE | 2021-06-02 15:25 | PCRCNOTE ---
Window of time for administration has passed. See next scheduled administration.
[2021-06-02 16:35] LABS: Glucose Point of Care 291 mg/dl (65-105)
[2021-06-02] MEDS: FUROSEMIDE INJ 40 MG/4 ML VIAL IV PUSH (17:22)
[2021-06-02] MEDS: INSULIN ASPART (*BKC) 100 UNITS/ML SUB-Q (17:23)
[2021-06-02] MEDS: RIVAROXABAN 20 MG TABLET PO (17:23)
[2021-06-02] MEDS: rOPINIRole HCL 1 MG TABLET 3 MG PO (20:48)
[2021-06-02 21:36] LABS: Glucose Point of Care 328 mg/dl (65-105)
[2021-06-03] VITALS (22 sets, daily range): BP systolic 107–118; BP diastolic 53–72; PULSE 70–115; RESP 17–22; TEMP 35.9–36.2; O2SAT 96–99; BMI 39.9
[2021-06-03] MEDS: ALBUTEROL SULFATE NEB 2.5 MG/0.5 ML INH INHALATION ×4 (02:35→20:18)
[2021-06-03] MEDS: IPRATROPIUM BR 0.02% INH SOLN 0.5 MG/2.5 ML VIAL INHALATION ×4 (02:35→20:18)
--- NOTE | 2021-06-03 03:25 | PC.NURSE ---
This patient, Charlene Chen, was transferred to [facility] on 06/03/21 at 0320. Personal belongings sent with patient. Report given to Leda WOLF. Appropriate documentation sent with patient.
--- NOTE | 2021-06-03 03:30 | PC.NURSE ---
pt arrived to room via bed, belongings in hand, alert and orientated, ambulating in room, no resp distress, no complaints at this time.
[2021-06-03 07:14] LABS: Basophils Absolute Auto 0.1 K/mm3 (0.0-0.1); Basophils Percent Auto 0.7 % (0.2-1.2); Eosinophils Percent Auto 0.4 % (0-4.4); Hematocrit 41.5 % (37.0-47.0); Hemoglobin 13.8 g/dL (12.0-15.0); Immature Granulocyte Absolute 0.05 K/mm3 (0.00-0.031); Immature Granulocyte Percent A 0.7 % (0-0.5); Lymphocytes Percent Auto 23.5 % (18.3-44.2); Mean Corpuscular HGB Conc 33.3 g/dl (32-36); Mean Corpuscular Volume 87.2 fl (80-100); Mean Platelet Volume 10.5 fl (7.4-10.4); Monocytes Absolute Auto 0.7 K/mm3 (0.1-0.6); Monocytes Percent Auto 9.3 % (2.6-8.5); Neutrophils Absolute Auto 4.7 K/mm3 (1.3-6.7); Neutrophils Percent Auto 65.4 % (45.5-73.1); Platelet Count Result 183 k/mm3 (150-375); Red Blood Count 4.76 M/mm3 (4.2-5.4); Red Cell Distribution Width 14.3 % (11.5-14.5); White Blood Count 7.2 K/mm3 (4.5-10.0)
[2021-06-03 07:19] LABS: Alanine Aminotransferase 66 U/L (4-35); Albumin Level 4.1 g/dL (3.5-5.1); Alkaline Phosphatase 196 U/L (38-126); Anion Gap 8 mmol/L (8-16); Aspartate Amino Transferase 61 U/L (14-36); Bilirubin,Total 0.7 mg/dL (0.2-1.3); Blood Urea Nitrogen 31 mg/dL (7-17); Calcium 9.2 mg/dL (8.4-10.2); Carbon Dioxide 28 mmol/L (22-30); Chloride 96 mmol/L (98-107); Estimated CRCL calculation 74 ml/min; Estimated Glomerular Filt Rate > 60; Glucose 230 mg/dL (65-110); Magnesium 2.2 mg/dL (1.6-2.3); Potassium 3.5 mmol/L (3.4-5.0); Sodium 132 mmol/L (137-145)
[2021-06-03] MEDS: ISOSORBIDE MONONITRATE 60 MG TAB.ER.24H PO (08:08)
[2021-06-03] MEDS: FUROSEMIDE INJ 40 MG/4 ML VIAL IV PUSH (08:08)
[2021-06-03] MEDS: ATORVASTATIN 40 MG TABLET PO (08:08)
[2021-06-03] MEDS: carvediloL 12.5 MG TABLET PO ×2 (08:08→20:33)
[2021-06-03] MEDS: PREGABALIN (*CRX) 75 MG CAPSULE 150 MG PO ×2 (08:09→20:33)
[2021-06-03] MEDS: SACUBITRIL/VALSARTAN 24-26 MG TABLET 1 TAB PO ×2 (08:09→20:33)
[2021-06-03] MEDS: AZITHROMYCIN 250 MG TABLET PO (08:09)
[2021-06-03] MEDS: FERROUS SULFATE 324 MG TABLET PO ×2 (08:09→17:01)
[2021-06-03] MEDS: predniSONE 20 MG TABLET 40 MG PO (08:09)
[2021-06-03] MEDS: INSULIN ASPART (*BKC) 100 UNITS/ML 10 UNITS SUB-Q ×3 (08:14→17:02)
[2021-06-03] MEDS: INSULIN GLARGINE (*BKC) 100 UNITS/ML 30 UNITS SUB-Q (08:15)
[2021-06-03] MEDS: INSULIN ASPART (*BKC) 100 UNITS/ML SUB-Q ×3 (08:15→17:02)
[2021-06-03 08:20] LABS: Hepatitis B Surface Antigen Negative (Negative)
[2021-06-03 08:22] LABS: Glucose Point of Care 213 mg/dl (65-105)
[2021-06-03] MEDS: FLUTICASONE/SALMETEROL 115-21 MCG INHALER 1 PUFF 2 PUFF INHALATION ×2 (08:23→20:18)
[2021-06-03 08:26] LABS: HAV RESULT Negative (Negative); Hepatitis B Core IgM Result Negative (Negative)
[2021-06-03 08:37] LABS: Hepatitis C Virus Antibody Negative (Negative)
--- NOTE | 2021-06-03 09:20 | PM.IMPN ---
Progress Note: A&P Assessment and Plan (1) COPD exacerbation: Code(s): J44.1 - Chronic obstructive pulmonary disease with (acute) exacerbation Status: Acute Assessment and Plan: Complaints of increased wheezes, sputum with color changes (Brown and green), and Short of breath Wheezes, shortness of breath, and sputum continues to be notable This seems to be an acute exacerbation at this time Scheduled nebulizers Prednisone 40mg PO daily, changed to IV q8hr will reassess tomorrow azithromycin for 5 days for symptoms listed Sputum culture came back abnormal with gram positive cocci Await culture results tailor antibiotics to sensitivities (2) Heart failure with reduced ejection fraction: Code(s): I50.20 - Unspecified systolic (congestive) heart failure Status: Acute Assessment and Plan: Clinically compensated BNP elevated 314 1-2+ pitting edema Furosemide 40mg PO daily Chest xray shows no cardiopulmonary disease (3) Insulin dependent type 2 diabetes mellitus: Code(s): E11.9 - Type 2 diabetes mellitus without complications; Z79.4 - emt intermediate (current) use of insulin Status: Acute Assessment and Plan: Glucose is 230 on labs Could be more elevated from steroids Basal insulin 30 units Daily Initiate sliding scale insulin Accu-Cheks hypoglycemic protocol Hemoglobin A1c on 05/16/21 8.5 Adjust medications as needed (4) Elevated LFTs: Code(s): R79.89 - Other specified abnormal findings of blood chemistry Status: Acute Assessment and Plan: AST/ALT 61/66 LFT elevations over the years hepatitis panel negative Continue to trend LFTs Abd ultrasound unremarkable (5) Chronic anticoagulation: Code(s): Z79.01 - emt intermediate (current) use of anticoagulants Status: Acute Assessment and Plan: Continue rivaroxaban for stroke prophylaxis hx of paroxysmal atrial fibrillation/flutter EKG shows SR PT/PTT/INR normal (6) Hypertension: Code(s): I10 - Essential (primary) hypertension Status: Acute Assessment and Plan: Current BP 118/63 Continue home carvedilol 12.5 PO BID, Imdur 30mg PO daily, Entresto 1 tab Q12hr Trend blood pressures Adjust therapies as needed (7) Chest pain: Qualifiers: Chest pain type: unspecified Qualified Code(s): R07.9 - Chest pain, unspecified Code(s): R07.9 - Chest pain, unspecified Status: Acute Assessment and Plan: Likely due to ongoing coughing over the last week No significant pleuritic component Hx of coronary artery disease however this seems inconsistent with cardiac chest pain telemetry overnight no events noted troponin negative Patient sees Dr. Mishra and has an appointment coming up (8) Cough: Code(s): R05.9 - Cough, unspecified Status: Acute Assessment and Plan: Intense cough noted Guaifenesin with codeine Q 4 p.r.n. Changed steroids to 40 mg q.8 IV Time Spent With Patient Time with patient: 25 - 35 minutes Subjective Date/time seen: 06/03/21 09:20 Interval history: Date/Time: 06/01/21 15:00 Narrative: This is a 66-year-old female with COPD, coronary artery disease, systolic and diastolic congestive heart failure, insulin-dependent type 2 diabetes mellitus, hypertension, hyperlipidemia, paroxysmal atrial fibrillation/flutter, rheumatoid arthritis, and several other comorbidities who presented to the emergency department earlier today via EMS from home for evaluation of cough, chest pain, and shortness of breath. She reports chronic, mild dyspnea on exertion though that has improved significantly since MitraClip done sometime last year. Occasionally she will have COPD exacerbations typically precipitated by cold symptoms and she does report that her [id number] granddaughter had a cough and sniffles about a week ago when she
--- NOTE | 2021-06-03 09:20 | P.PNIM_ITS ---
Progress Note: A&P Assessment and Plan (1) COPD exacerbation: Code(s): J44.1 - Chronic obstructive pulmonary disease with (acute) exacerbation Status: Acute Assessment and Plan: * Complaints of increased wheezes, sputum with color changes (Brown and green), and Short of breath * Wheezes, shortness of breath, and sputum continues to be notable * This seems to be an acute exacerbation at this time * Scheduled nebulizers * Prednisone 40mg PO daily, changed to IV q8hr will reassess tomorrow * azithromycin for 5 days for symptoms listed * Sputum culture came back abnormal with gram positive cocci * Await culture results * tailor antibiotics to sensitivities (2) Heart failure with reduced ejection fraction: Code(s): I50.20 - Unspecified systolic (congestive) heart failure Status: Acute Assessment and Plan: * Clinically compensated * BNP elevated 314 * 1-2+ pitting edema * Furosemide 40mg PO daily * Chest xray shows no cardiopulmonary disease (3) Insulin dependent type 2 diabetes mellitus: Code(s): E11.9 - Type 2 diabetes mellitus without complications; Z79.4 - intermediate manager (current) use of insulin Status: Acute Assessment and Plan: * Glucose is 230 on labs * Could be more elevated from steroids * Basal insulin 30 units Daily * Initiate sliding scale insulin * Accu-Cheks * hypoglycemic protocol * Hemoglobin A1c on 05/16/21 8.5 * Adjust medications as needed (4) Elevated LFTs: Code(s): R79.89 - Other specified abnormal findings of blood chemistry Status: Acute Assessment and Plan: * AST/ALT 61/66 * LFT elevations over the years * hepatitis panel negative * Continue to trend LFTs * Abd ultrasound unremarkable (5) Chronic anticoagulation: Code(s): Z79.01 - intermediate manager (current) use of anticoagulants Status: Acute Assessment and Plan: * Continue rivaroxaban for stroke prophylaxis * hx of paroxysmal atrial fibrillation/flutter * EKG shows SR * PT/PTT/INR normal (6) Hypertension: Code(s): I10 - Essential (primary) hypertension Status: Acute Assessment and Plan: * Current BP 118/63 * Continue home carvedilol 12.5 PO BID, Imdur 30mg PO daily, Entresto 1 tab Q12hr * Trend blood pressures * Adjust therapies as needed (7) Chest pain: Qualifiers: Chest pain type: unspecified Qualified Code(s): R07.9 - Chest pain, unspecified Code(s): R07.9 - Chest pain, unspecified Status: Acute Assessment and Plan: * Likely due to ongoing coughing over the last week * No significant pleuritic component * Hx of coronary artery disease however this seems inconsistent with cardiac chest pain * telemetry overnight no events noted * troponin negative * Patient sees Dr. Mishra and has an appointment coming up (8) Cough: Code(s): R05.9 - Cough, unspecified Status: Acute Assessment and Plan: * Intense cough noted * Guaifenesin with codeine Q 4 p.r.n. * Changed steroids to 40 mg q.8 IV Time Spent With Patient Time with patient: 25 - 35 minutes Subjective Date/time seen: 06/03/21 09:20 Interval history: Date/Time: 06/01/21 15:00 Narrative: This is a 66-year-old female with COPD, coronary artery disease, systolic and diastolic congestive heart failure, insulin-dependent type 2 diabetes mellitus, hyp
[2021-06-03] MEDS: MORPHINE SULFATE (*CRX) 2 MG/ML INJ 1 MG IV PUSH (10:41)
[2021-06-03] MEDS: guaiFENesin/DEXTROMETHORPHAN 10 ML UDC 5 ML PO (10:41)
[2021-06-03 12:12] LABS: Glucose Point of Care 375 mg/dl (65-105)
[2021-06-03] MEDS: FUROSEMIDE 40 MG TABLET PO (12:21)
--- NOTE | 2021-06-03 12:26 | PM.PNCARD ---
Progress Note: A&P Assessment and Plan (1) Heart failure with reduced ejection fraction: Code(s): I50.20 - Unspecified systolic (congestive) heart failure Status: Acute Assessment and Plan: Severe left ventricular systolic dysfunction demonstrated by echo in November of 2020. EF 20-25%. Presented with shortness of breath, very mildly elevated NT pro-BNP. No evidence of pulmonary congestion on CXR. She was given IV diuresis yesterday. On exam today does not appear to be volume overloaded - will shift her back to oral furosemide 40mg daily. Continuue coreg, entresto, imdur. Continue to monitor daily BMP. (2) Chronic anticoagulation: Code(s): Z79.01 - jail (current) use of anticoagulants Status: Acute Assessment and Plan: On Xarelto for PAF. No signs of bleeding. (3) Paroxysmal atrial fibrillation: Code(s): I48.0 - Paroxysmal atrial fibrillation Status: Acute Assessment and Plan: In sinus rhythm now. (4) SOB (shortness of breath): Code(s): R06.02 - Shortness of breath Status: Acute Assessment and Plan: Probably related to acute COPD exacerbation vs. CHF exacerbation. Feeling better with nebs, steroids. (5) COPD (chronic obstructive pulmonary disease): Code(s): J44.9 - Chronic obstructive pulmonary disease, unspecified Status: Chronic Assessment and Plan: Hx of COPD now presenting with probable acute exacerbation. Receiving nebulizers, prednisone. Management per primary service. Additional Plan Subjective Date/time seen: 06/03/21 12:26 Cardiology follow up for CHF Date of service 06/03/21: Complaining of severe cough today. Had several coughing episodes during my exam and interview. She is also complaining of some dizziness. She does say that her breathing has improved significantly. Review of Systems Review of Systems: All systems reviewed & are unremarkable except as noted in HPI and below Exam Const: General: no acute distress and uncomfortable HENMT: Head: normal to inspection General nose exam: Normal nares present and no epistaxis Mouth: Yes moist mucous membranes Eyes: General: appearance normal, both eyes and all related structures Sclera: sclerae normal Pupils: Equal, round and reactive pupils present Neck: Neck: supple and no JVD Carotids: no bruits Resp: Effort & Inspection: Actively coughing actively coughing Auscultation: clear to auscultation bilaterally, no rales and lung sounds not diminished Cardio: Rate: regular rate Rhythm: regular rhythm Heart sounds: no gallops, no murmurs and no rubs Peripheral pulses: Peripheral pulses 2+ throughout GI: Auscultation: normal bowel sounds Skin: General skin exam: normal color, rashes and/or lesions noted and no erythema Other: Warm Neuro: General: patient oriented x3 Cranial nerves: Yes Equal, round and reactive pupils present Speech: normal speech Other: No obvious focal deficit or facial asymmetry Extrem: General: edema Other: Normal capillary refills Intact distal pulses. Objective Data Vital Signs Vital Signs: Vital Signs - 24 hr 06/02/21 14:00 06/02/21 16:00 06/02/21 18:00 Temperature 36.6 C Pulse Rate 85 80 104 H Respiratory Rate 18 Blood Pressure 92/57 L Pulse Oximetry 95 06/02/21 20:00 06/02/21 20:21 06/02/21 20:23 Temperature Pulse Rate 101 H 86 Respiratory Rate 18 Blood Pressure Pulse Oximetry 96 06/02/21 20:29 06/02/21 20:48 06/02/21 21:43 Temperature 36.5 C Pulse Rate 89 90 85 Respiratory Rate 18 20 Blood Pressure 123/62 Pulse Oximetry 95 06/02/21 22:00 06/02/21 23:41 06/03/21 00:00 Temperature 36.6 C Pulse Rate 91 105 H 87 Respiratory Rate 20 Blood Pressure 151/76 H Pulse Oximetry 97 06/03/21 02:00 06/03/21 02:35 06/03/21 02:45 Temperature Pulse Rate 84 77 85 Respiratory Rate 18 18 Blood Pressure Pulse Oximetry 06/03/21 04:00 05/07
[2021-06-03] MEDS: guaiFENesin/CODEINE (*CRX) 200/20 MG 10 ML SYRUP PO ×2 (14:33→18:59)
[2021-06-03] MEDS: methylPREDNISolone SOD SUCC 40 MG VIAL IV PUSH ×2 (14:34→20:34)
--- NOTE | 2021-06-03 15:18 | PCSTNOTE ---
Please refer to the Bedside Swallow Evaluation in the EMR. Please note, silent aspiration cannot be ruled out at bedside.
[2021-06-03 17:02] LABS: Glucose Point of Care 320 mg/dl (65-105)
[2021-06-03] MEDS: RIVAROXABAN 20 MG TABLET PO (17:02)
[2021-06-03] MEDS: rOPINIRole HCL 1 MG TABLET 3 MG PO (20:33)
[2021-06-03 21:34] LABS: Glucose Point of Care 439 mg/dl (65-105)
[2021-06-03] MEDS: INSULIN ASPART (*BKC) 100 UNITS/ML 16 UNITS SUB-Q (22:18)
[2021-06-04] VITALS (16 sets, daily range): BP systolic 95–140; BP diastolic 57–86; PULSE 72–106; RESP 18–20; TEMP 36.3–37.9; O2SAT 95–97
[2021-06-04] MEDS: guaiFENesin/CODEINE (*CRX) 200/20 MG 10 ML SYRUP PO (01:14)
[2021-06-04] MEDS: SIMETHICONE 80 MG TAB.CHEW PO (01:15)
[2021-06-04] MEDS: IPRATROPIUM BR 0.02% INH SOLN 0.5 MG/2.5 ML VIAL INHALATION ×3 (01:20→21:54)
[2021-06-04] MEDS: ALBUTEROL SULFATE NEB 2.5 MG/0.5 ML INH INHALATION ×3 (01:20→21:54)
[2021-06-04 06:59] LABS: Basophils Percent Auto 0.2 % (0.2-1.2); Hematocrit 41.4 % (37.0-47.0); Hemoglobin 14.4 g/dL (12.0-15.0); Immature Granulocyte Absolute 0.11 K/mm3 (0.00-0.031); Immature Granulocyte Percent A 1.1 % (0-0.5); Lymphocytes Absolute Auto 0.89 K/mm3 (0.9-3.2); Lymphocytes Percent Auto 8.8 % (18.3-44.2); Mean Corpuscular HGB Conc 34.8 g/dl (32-36); Mean Corpuscular Hemoglobin 28.8 pg (26-34); Mean Corpuscular Volume 82.8 fl (80-100); Mean Platelet Volume 10.5 fl (7.4-10.4); Monocytes Absolute Auto 0.6 K/mm3 (0.1-0.6); Monocytes Percent Auto 5.6 % (2.6-8.5); Neutrophils Absolute Auto 8.6 K/mm3 (1.3-6.7); Neutrophils Percent Auto 84.3 % (45.5-73.1); Platelet Count Result 237 k/mm3 (150-375); White Blood Count 10.1 K/mm3 (4.5-10.0)
[2021-06-04 07:17] LABS: Alanine Aminotransferase 57 U/L (4-35); Albumin Level 4.1 g/dL (3.5-5.1); Alkaline Phosphatase 200 U/L (38-126); Anion Gap 12 mmol/L (8-16); Aspartate Amino Transferase 33 U/L (14-36); Bilirubin,Total 0.7 mg/dL (0.2-1.3); Blood Urea Nitrogen 30 mg/dL (7-17); Calcium 9.7 mg/dL (8.4-10.2); Carbon Dioxide 26 mmol/L (22-30); Chloride 99 mmol/L (98-107); Estimated CRCL calculation 74 ml/min; Estimated Glomerular Filt Rate > 60; Glucose 252 mg/dL (65-110); Magnesium 2.4 mg/dL (1.6-2.3); Potassium 3.9 mmol/L (3.4-5.0); Sodium 137 mmol/L (137-145)
[2021-06-04 08:09] LABS: Glucose Point of Care 235 mg/dl (65-105)
[2021-06-04] MEDS: INSULIN ASPART (*BKC) 100 UNITS/ML SUB-Q ×3 (08:41→17:15)
[2021-06-04] MEDS: INSULIN ASPART (*BKC) 100 UNITS/ML 15 UNITS SUB-Q ×3 (08:41→17:15)
[2021-06-04] MEDS: ATORVASTATIN 40 MG TABLET PO (08:49)
[2021-06-04] MEDS: SACUBITRIL/VALSARTAN 24-26 MG TABLET 1 TAB PO ×2 (08:49→20:07)
[2021-06-04] MEDS: carvediloL 12.5 MG TABLET PO ×2 (08:49→20:07)
[2021-06-04] MEDS: FERROUS SULFATE 324 MG TABLET PO ×2 (08:49→17:16)
[2021-06-04] MEDS: ISOSORBIDE MONONITRATE 60 MG TAB.ER.24H PO (08:49)
[2021-06-04] MEDS: AZITHROMYCIN 250 MG TABLET PO (08:49)
[2021-06-04] MEDS: INSULIN GLARGINE (*BKC) 100 UNITS/ML 40 UNITS SUB-Q (08:51)
[2021-06-04] MEDS: PREGABALIN (*CRX) 75 MG CAPSULE 150 MG PO ×2 (08:56→20:07)
[2021-06-04] MEDS: FUROSEMIDE 40 MG TABLET PO (09:12)
[2021-06-04] MEDS: FLUTICASONE/SALMETEROL 115-21 MCG INHALER 1 PUFF 2 PUFF INHALATION ×2 (09:17→21:57)
--- NOTE | 2021-06-04 09:20 | P.PNIM_ITS ---
Progress Note: A&P Assessment and Plan (1) Pneumonia: Code(s): J18.9 - Pneumonia, unspecified organism Status: Acute Assessment and Plan: * Chest xray shows No acute cardiopulmonary abnormality. * Sputum culture grew gram positive cocci, and was resulted to normal joão * Currently on Zithromax * Awaiting culture * tailor antibiotics to culture results * Given the patient's allergies the culture should come back * Steroids * Test for RSV and Pertussis (2) COPD exacerbation: Code(s): J44.1 - Chronic obstructive pulmonary disease with (acute) exacerbation Status: Acute Assessment and Plan: * Complaints of increased wheezes, sputum with color changes (Brown and green), and Short of breath * Wheezes, shortness of breath, and sputum continues, but seems to be better * This seems to be an acute exacerbation at this time * Scheduled nebulizers * Prednisone 40mg PO daily, changed back to PO today * azithromycin for 5 days for symptoms listed * Sputum culture came back abnormal with gram positive cocci * Await culture results * tailor antibiotics to sensitivities (3) Heart failure with reduced ejection fraction: Code(s): I50.20 - Unspecified systolic (congestive) heart failure Status: Acute Assessment and Plan: * Clinically compensated * BNP elevated 314 * 1-2+ pitting edema * Furosemide 40mg PO daily * Chest xray shows no cardiopulmonary disease (4) Insulin dependent type 2 diabetes mellitus: Code(s): E11.9 - Type 2 diabetes mellitus without complications; Z79.4 - supervisor intermediates (current) use of insulin Status: Acute Assessment and Plan: * Glucose is 252 on labs * Could be more elevated from steroids * Basal insulin 30 units Daily, increased to 40 * Initiate sliding scale insulin * Aspart 10units increased to 15 * Accu-Cheks * hypoglycemic protocol * Hemoglobin A1c on 05/16/21 8.5 * Adjust medications as needed (5) Elevated LFTs: Code(s): R79.89 - Other specified abnormal findings of blood chemistry Status: Acute Assessment and Plan: * AST/ALT 33/57 * LFT elevations over the years * hepatitis panel negative * Continue to trend LFTs * Abd ultrasound unremarkable (6) Chronic anticoagulation: Code(s): Z79.01 - half-way (current) use of anticoagulants Status: Acute Assessment and Plan: * Continue rivaroxaban for stroke prophylaxis * hx of paroxysmal atrial fibrillation/flutter * EKG shows SR * PT/PTT/INR normal (7) Hypertension: Code(s): I10 - Essential (primary) hypertension Status: Acute Assessment and Plan: * Current BP 140/86 * Continue home carvedilol 12.5 PO BID, Imdur 30mg PO daily, Entresto 1 tab Q12hr * Trend blood pressures * Adjust therapies as needed (8) Chest pain: Qualifiers: Chest pain type: unspecified Qualified Code(s): R07.9 - Chest pain, unspecified Code(s): R07.9 - Chest pain, unspecified Status: Acute Assessment and Plan: * Likely due to ongoing coughing over the last week * No significant pleuritic component * Hx of coronary artery disease however this seems inconsistent with cardiac chest pain * telemetry overnight no events noted * troponin negative * Patient sees Dr. Mishra and has an appointment coming up (9) Cough: Code(s): R05.9 - Cough, u
--- NOTE | 2021-06-04 09:20 | PM.IMPN ---
Progress Note: A&P Assessment and Plan (1) Pneumonia: Code(s): J18.9 - Pneumonia, unspecified organism Status: Acute Assessment and Plan: Chest xray shows No acute cardiopulmonary abnormality. Sputum culture grew gram positive cocci, and was resulted to normal joão Currently on Zithromax Awaiting culture tailor antibiotics to culture results Given the patient's allergies the culture should come back Steroids Test for RSV and Pertussis (2) COPD exacerbation: Code(s): J44.1 - Chronic obstructive pulmonary disease with (acute) exacerbation Status: Acute Assessment and Plan: Complaints of increased wheezes, sputum with color changes (Brown and green), and Short of breath Wheezes, shortness of breath, and sputum continues, but seems to be better This seems to be an acute exacerbation at this time Scheduled nebulizers Prednisone 40mg PO daily, changed back to PO today azithromycin for 5 days for symptoms listed Sputum culture came back abnormal with gram positive cocci Await culture results tailor antibiotics to sensitivities (3) Heart failure with reduced ejection fraction: Code(s): I50.20 - Unspecified systolic (congestive) heart failure Status: Acute Assessment and Plan: Clinically compensated BNP elevated 314 1-2+ pitting edema Furosemide 40mg PO daily Chest xray shows no cardiopulmonary disease (4) Insulin dependent type 2 diabetes mellitus: Code(s): E11.9 - Type 2 diabetes mellitus without complications; Z79.4 - intermediate (current) use of insulin Status: Acute Assessment and Plan: Glucose is 252 on labs Could be more elevated from steroids Basal insulin 30 units Daily, increased to 40 Initiate sliding scale insulin Aspart 10units increased to 15 Accu-Cheks hypoglycemic protocol Hemoglobin A1c on 05/16/21 8.5 Adjust medications as needed (5) Elevated LFTs: Code(s): R79.89 - Other specified abnormal findings of blood chemistry Status: Acute Assessment and Plan: AST/ALT 33/57 LFT elevations over the years hepatitis panel negative Continue to trend LFTs Abd ultrasound unremarkable (6) Chronic anticoagulation: Code(s): Z79.01 - rodent exterminator (current) use of anticoagulants Status: Acute Assessment and Plan: Continue rivaroxaban for stroke prophylaxis hx of paroxysmal atrial fibrillation/flutter EKG shows SR PT/PTT/INR normal (7) Hypertension: Code(s): I10 - Essential (primary) hypertension Status: Acute Assessment and Plan: Current BP 140/86 Continue home carvedilol 12.5 PO BID, Imdur 30mg PO daily, Entresto 1 tab Q12hr Trend blood pressures Adjust therapies as needed (8) Chest pain: Qualifiers: Chest pain type: unspecified Qualified Code(s): R07.9 - Chest pain, unspecified Code(s): R07.9 - Chest pain, unspecified Status: Acute Assessment and Plan: Likely due to ongoing coughing over the last week No significant pleuritic component Hx of coronary artery disease however this seems inconsistent with cardiac chest pain telemetry overnight no events noted troponin negative Patient sees Dr. Mishra and has an appointment coming up (9) Cough: Code(s): R05.9 - Cough, unspecified Status: Acute Assessment and Plan: Intense cough noted Guaifenesin with codeine Q 4 p.r.n. Changed steroids to 40 mg q.8 IV Time Spent With Patient Time with patient: 25 - 35 minutes Subjective Date/time seen: 06/04/21 0920 Interval history: Date/Time: 06/01/21 15:00 Narrative: This is a 66-year-old female with COPD, coronary artery disease, systolic and diastolic congestive heart failure, insulin-dependent type 2 diabetes mellitus, hypertension, hyperlipidemia, paroxysmal atrial fibrillation/flutter, rheumatoid arthr
--- NOTE | 2021-06-04 10:11 | PM.PNCARD ---
Progress Note: A&P Assessment and Plan (1) Heart failure with reduced ejection fraction: Code(s): I50.20 - Unspecified systolic (congestive) heart failure Status: Acute Assessment and Plan: Severe left ventricular systolic dysfunction demonstrated by echo in November of 2020. EF 20-25%. Presented with shortness of breath, very mildly elevated NT pro-BNP. No evidence of pulmonary congestion on CXR. Treated initially with IV diuretic but was shifted to oral furosemide yesterday. Still appears euvolemic on exam today. Continuue coreg, entresto, imdur, furosemide. Continue to monitor daily BMP. (2) Chronic anticoagulation: Code(s): Z79.01 - senior care (current) use of anticoagulants Status: Acute Assessment and Plan: On Xarelto for PAF. No signs of bleeding. (3) Paroxysmal atrial fibrillation: Code(s): I48.0 - Paroxysmal atrial fibrillation Status: Acute Assessment and Plan: In sinus rhythm now. (4) SOB (shortness of breath): Code(s): R06.02 - Shortness of breath Status: Acute Assessment and Plan: Probably related to acute COPD exacerbation vs. CHF exacerbation. Feeling better with nebs, steroids. (5) COPD (chronic obstructive pulmonary disease): Code(s): J44.9 - Chronic obstructive pulmonary disease, unspecified Status: Chronic Assessment and Plan: Hx of COPD now presenting with probable acute exacerbation. Receiving nebulizers, prednisone. Management per primary service. Additional Plan Subjective Date/time seen: 06/04/21 10:11 Interval history: Cardiology follow up for CHF Date of service 06/03/21: Complaining of severe cough today. Had several coughing episodes during my exam and interview. She is also complaining of some dizziness. She does say that her breathing has improved significantly. Date of service 06/04/2021: Feeling much better today. Her coughing has almost completely subsided and she is no longer dizzy. Only complaint today is HARDEN which is not new. Review of Systems Review of Systems: All systems reviewed & are unremarkable except as noted in HPI and below Exam Const: General: no acute distress and uncomfortable Orientation/consciousness: patient oriented x3 HENMT: Head: normal to inspection General nose exam: Normal nares present and no epistaxis Mouth: Yes moist mucous membranes Eyes: General: appearance normal, both eyes and all related structures Sclera: sclerae normal Pupils: Equal, round and reactive pupils present Neck: Neck: supple and no JVD Carotids: no bruits Resp: Effort & Inspection: Actively coughing dry Auscultation: no rales, wheezes expiratory wheezes and scattered wheezes and lung sounds not diminished Other: No chest wall tenderness Cardio: Rate: regular rate Rhythm: regular rhythm Heart sounds: no gallops, no murmurs and no rubs Peripheral pulses: Peripheral pulses 2+ throughout GI: Auscultation: normal bowel sounds Skin: General skin exam: normal color, rashes and/or lesions noted and no erythema Other: Warm Neuro: General: patient oriented x3 Cranial nerves: Yes Equal, round and reactive pupils present Speech: normal speech Other: No obvious focal deficit or facial asymmetry Extrem: General: no edema Other: Normal capillary refills Intact distal pulses. Objective Data Vital Signs Vital Signs: Vital Signs - 24 hr 06/03/21 10:48 06/03/21 12:00 06/03/21 14:00 Temperature 35.9 C L Pulse Rate 101 H 83 96 Respiratory Rate 17 Blood Pressure 118/72 Pulse Oximetry 98 97 06/03/21 14:26 06/03/21 14:35 06/03/21 16:00 Temperature Pulse Rate 70 74 86 Respiratory Rate 18 18 Blood Pressure Pulse Oximetry 06/03/21 20:00 06/03/21 20:18 06/03/21 20:28 Temperature Pulse Rate 84 72 74 Respiratory Rate 20 22 H Blood Pressure Pulse Oximetry 06/03/21 20:33 06/03/21 21:54 06/04/21 00:00 Temperature 36.2 C L Pulse
--- NOTE | 2021-06-04 10:30 | PC.NURSE ---
Outpatient referral started for Inital DSMT and MNT. Referral fax[facility] to [facility].
[2021-06-04] MEDS: predniSONE 20 MG TABLET 40 MG PO (10:55)
[2021-06-04 12:22] LABS: Glucose Point of Care 329 mg/dl (65-105)
--- NOTE | 2021-06-04 15:24 | PC.NURSE ---
On 06/04/21, the student, [ Spring Levi], provided care and completed [facility] documentation on this patient. I have reviewed the student's documentation and agree with the findings.
[2021-06-04 17:02] LABS: Glucose Point of Care 221 mg/dl (65-105)
[2021-06-04] MEDS: RIVAROXABAN 20 MG TABLET PO (17:16)
--- NOTE | 2021-06-04 18:09 | PCRCNOTE ---
Window of time for administration has passed. See next scheduled administration.
[2021-06-04] MEDS: rOPINIRole HCL 1 MG TABLET 3 MG PO (20:07)
[2021-06-04 21:24] LABS: Glucose Point of Care 263 mg/dl (65-105)
[2021-06-05] VITALS (11 sets, daily range): BP systolic 90–138; BP diastolic 51–87; PULSE 68–95; RESP 18–86; TEMP 36–36.3; O2SAT 96–98
[2021-06-05] MEDS: IPRATROPIUM BR 0.02% INH SOLN 0.5 MG/2.5 ML VIAL INHALATION ×2 (02:40→11:38)
[2021-06-05] MEDS: ALBUTEROL SULFATE NEB 2.5 MG/0.5 ML INH INHALATION ×2 (02:40→11:38)
[2021-06-05 06:34] LABS: Basophils Percent Auto 0.4 % (0.2-1.2); Eosinophils Percent Auto 0.2 % (0-4.4); Hematocrit 42.6 % (37.0-47.0); Hemoglobin 14.1 g/dL (12.0-15.0); Immature Granulocyte Percent A 1.1 % (0-0.5); Lymphocytes Absolute Auto 2.14 K/mm3 (0.9-3.2); Mean Corpuscular HGB Conc 33.1 g/dl (32-36); Mean Corpuscular Hemoglobin 28.8 pg (26-34); Mean Corpuscular Volume 86.9 fl (80-100); Mean Platelet Volume 10.2 fl (7.4-10.4); Monocytes Absolute Auto 0.8 K/mm3 (0.1-0.6); Monocytes Percent Auto 8.3 % (2.6-8.5); Neutrophils Absolute Auto 6.3 K/mm3 (1.3-6.7); Platelet Count Result 210 k/mm3 (150-375); Red Cell Distribution Width 14.6 % (11.5-14.5); White Blood Count 9.3 K/mm3 (4.5-10.0)
[2021-06-05 06:51] LABS: Alanine Aminotransferase 61 U/L (4-35); Albumin Level 3.8 g/dL (3.5-5.1); Alkaline Phosphatase 166 U/L (38-126); Anion Gap 7 mmol/L (8-16); Aspartate Amino Transferase 56 U/L (14-36); Bilirubin,Total 0.6 mg/dL (0.2-1.3); Blood Urea Nitrogen 36 mg/dL (7-17); Carbon Dioxide 26 mmol/L (22-30); Chloride 102 mmol/L (98-107); Estimated CRCL calculation 74 ml/min; Estimated Glomerular Filt Rate > 60; Glucose 123 mg/dL (65-110); Magnesium 2.5 mg/dL (1.6-2.3); Potassium 3.5 mmol/L (3.4-5.0); Sodium 135 mmol/L (137-145)
[2021-06-05] MEDS: guaiFENesin/CODEINE (*CRX) 200/20 MG 10 ML SYRUP PO ×2 (07:38→13:24)
[2021-06-05 07:51] LABS: Glucose Point of Care 106 mg/dl (65-105)
[2021-06-05 08:08] LABS: Glucose Point of Care 132 mg/dl (65-105)
[2021-06-05] MEDS: FERROUS SULFATE 324 MG TABLET PO ×2 (08:58→17:02)
[2021-06-05] MEDS: AZITHROMYCIN 250 MG TABLET PO (08:58)
[2021-06-05] MEDS: ATORVASTATIN 40 MG TABLET PO (08:58)
[2021-06-05] MEDS: carvediloL 12.5 MG TABLET PO ×2 (08:58→20:38)
[2021-06-05] MEDS: predniSONE 20 MG TABLET 40 MG PO (08:58)
[2021-06-05] MEDS: SACUBITRIL/VALSARTAN 24-26 MG TABLET 1 TAB PO (08:59)
[2021-06-05] MEDS: FUROSEMIDE 40 MG TABLET PO (08:59)
[2021-06-05] MEDS: PREGABALIN (*CRX) 75 MG CAPSULE 150 MG PO ×2 (08:59→20:44)
[2021-06-05] MEDS: ISOSORBIDE MONONITRATE 60 MG TAB.ER.24H PO (08:59)
--- NOTE | 2021-06-05 10:36 | PM.PNCARD ---
Progress Note: A&P Additional Plan 66-year-old lady with coronary disease, valvular heart disease and evidence of significant LV systolic dysfunction last year entered the hospital with some shortness of breath after a severe coughing spell over the weekend. No significant volume overload at this time. She has not had any hypotension according to the records. I am going to recommend advancing the dose of her Entresto to 49/51 mg q.12 hours. I will see her in the office in follow-up in attempt to locate the echo report from the study that was done at [facility] 2 weeks ago. There is no need more sensible reason to repeat a study here if there was 1 done at [facility] that recently. I need to assess the patient's candidacy for ICD implantation if the EF remains low. Other than this she seems to be stable enough for discharge today. Tone Mishra MD [facility] Subjective Date/time seen: Date of service: 06/05/21 10:36 Interval history: 66-year-old woman with: Valvular heart disease status post MitraClip earlier in the year and diffuse disease in the LAD that is not amenable to PCI. Patient admitted to hospital shortness of breath after intense coughing over the weekend. Mild if any evidence of decompensated CHF. Had echocardiogram done in November of this year demonstrating poor left ventricular systolic function. Follow-up study was done on 05/21/2021 at [facility] the results of that echo I have not been able to locate in the electronic records. She is reporting occasional symptoms of coughing spells that results in some chest pain as well. Did obtain some relief of this with sublingual nitroglycerin. Otherwise appears to be comfortable at bed rest at this time. She should continues to report very limited exertional capability because of HARDEN. Exam Const: General: comfortable and no acute distress HENMT: Mouth: Yes moist mucous membranes Eyes: Sclera: sclerae normal Pupils: Equal, round and reactive pupils present Neck: Neck: supple and no JVD Resp: Effort & Inspection: normal respiratory effort Auscultation: clear to auscultation bilaterally Other: No rales no rhonchi no wheezing Cardio: Rate: regular rate Rhythm: regular rhythm Other: Patient is mildly tachycardic, no audible murmur or gallop GI: GI Palp: Yes Soft to palpation Auscultation: normal bowel sounds Skin: General skin exam: normal color Neuro: Cognition (Neuro): normal cognition Extrem: Other: No pitting edema Objective Data Vital Signs Vital Signs: Vital Signs - 24 hr 06/04/21 14:43 06/04/21 20:07 06/04/21 21:54 Temperature 36.4 C L Pulse Rate 97 85 87 Respiratory Rate 18 20 Blood Pressure 98/59 L Pulse Oximetry 95 06/04/21 21:55 06/04/21 21:58 06/04/21 22:03 Temperature 37.9 C H Pulse Rate 87 87 82 Respiratory Rate 20 20 20 Blood Pressure 95/57 L Pulse Oximetry 96 96 06/04/21 22:43 06/05/21 02:41 06/05/21 02:50 Temperature 36.3 C L Pulse Rate 85 85 87 Respiratory Rate 18 18 18 Blood Pressure 134/72 Pulse Oximetry 97 06/05/21 05:51 06/05/21 08:58 Temperature 36.3 C L Pulse Rate 68 76 Respiratory Rate 20 Blood Pressure 138/87 Pulse Oximetry 96 Intake/Output Intake/Output: Intake & Output 06/02/21 06/03/21 06/04/21 06/05/21 23:59 23:59 23:59 23:59 Intake Total 640 1480 1236 600 Output Total 4750 2100 600 Balance -4110 -620 636 600 Meds/Results Medications: Active Medications Generic Name Dose Route Start Last Admin Trade Name Freq PRN Reason Stop Dose Admin Albuterol 2.5 mg 06/02/21 02:00 06/05/21 02:40 Albuterol Sulfate Neb 2.5 Mg/0.5 Ml Inh INHALATION 2.5 mg Q6HRT CELSO Administration Atorvastatin Calcium 40 mg 06/02/21 09:00 06/05/21 08:58 Atorvastatin 40 Mg Tablet PO 40 mg DAILY CELSO Administration Carvedilol 12.5 mg 06/01/21 22:40 06/05/21 08:58 Carvedilol 12.5 Mg Tablet PO 12.5 mg Q12HR CELSO Administration Cyclobenzaprine HCl 10 mg 06/03/21 15:45
--- NOTE | 2021-06-05 11:00 | PM.IMPN ---
Progress Note: A&P Assessment and Plan (1) Pneumonia: Code(s): J18.9 - Pneumonia, unspecified organism Status: Acute Assessment and Plan: Chest xray shows No acute cardiopulmonary abnormality. Sputum culture grew gram positive cocci, and was resulted to normal joão Currently on Zithromax completed today Consider Levaquin Culture grew normal joão tailor antibiotics to culture results Steroids Test for RSV and Pertussis (2) COPD exacerbation: Code(s): J44.1 - Chronic obstructive pulmonary disease with (acute) exacerbation Status: Acute Assessment and Plan: Complaints of increased wheezes, sputum with color changes (Brown and green), and Short of breath Wheezes, shortness of breath, and sputum continues, but seems to be better This seems to be an acute exacerbation at this time Scheduled nebulizers Steroids IV for now azithromycin for 5 days completed Sputum culture came back abnormal with gram positive cocci, and normal joão (3) Heart failure with reduced ejection fraction: Code(s): I50.20 - Unspecified systolic (congestive) heart failure Status: Acute Assessment and Plan: Clinically compensated BNP elevated 314 1-2+ pitting edema Furosemide 40mg PO daily, going to give one dose of 40mg IV now Chest xray shows no cardiopulmonary disease Entresto increased (4) Insulin dependent type 2 diabetes mellitus: Code(s): E11.9 - Type 2 diabetes mellitus without complications; 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01 - group home (current) use of anticoagulants Status: Acute Assessment and Plan: Continue rivaroxaban for stroke prophylaxis hx of paroxysmal atrial fibrillation/flutter EKG shows SR PT/PTT/INR normal (7) Hypertension: Code(s): I10 - Essential (primary) hypertension Status: Acute Assessment and Plan: Current BP 138/87 this am 90/51 currently Continue home carvedilol 12.5 PO BID, Imdur 30mg PO daily, Entresto 1 tab Q12hr Trend blood pressures Adjust therapies as needed (8) Chest pain: Qualifiers: Chest pain type: unspecified Qualified Code(s): R07.9 - Chest pain, unspecified Code(s): R07.9 - Chest pain, unspecified Status: Acute Assessment and Plan: Likely due to ongoing coughing over the last week No significant pleuritic component Hx of coronary artery disease however this seems inconsistent with cardiac chest pain telemetry overnight no events noted troponin negative Patient sees Dr. Mishra and has an appointment coming up (9) Cough: Code(s): R05.9 - Cough, unspecified Status: Acute Assessment and Plan: Intense cough noted Guaifenesin with codeine Q 4 p.r.n. Changed steroids to 40 mg BID IV (10) Insomnia: Code(s): G47.00 - Insomnia, unspecified Status: Acute Assessment and Plan: Will add melatonin 10mg PO at bedtime Time Spent With Patient Time with patient: 25 - 35 minutes Subjective Date/time seen: 06/05/21 11:00 Interval history: Date/Time: 06/01/21 15:00 Narrative: This is a 66-year-old female with COPD, coronary artery disease, systolic and diastolic congest
--- NOTE | 2021-06-05 11:00 | P.PNIM_ITS ---
Progress Note: A&P Assessment and Plan (1) Pneumonia: Code(s): J18.9 - Pneumonia, unspecified organism Status: Acute Assessment and Plan: * Chest xray shows No acute cardiopulmonary abnormality. * Sputum culture grew gram positive cocci, and was resulted to normal joão * Currently on Zithromax completed today * Consider Levaquin * Culture grew normal joão * tailor antibiotics to culture results * Steroids * Test for RSV and Pertussis (2) COPD exacerbation: Code(s): J44.1 - Chronic obstructive pulmonary disease with (acute) exacerbation Status: Acute Assessment and Plan: * Complaints of increased wheezes, sputum with color changes (Brown and green), and Short of breath * Wheezes, shortness of breath, and sputum continues, but seems to be better * This seems to be an acute exacerbation at this time * Scheduled nebulizers * Steroids IV for now * azithromycin for 5 days completed * Sputum culture came back abnormal with gram positive cocci, and normal joão (3) Heart failure with reduced ejection fraction: Code(s): I50.20 - Unspecified systolic (congestive) heart failure Status: Acute Assessment and Plan: * Clinically compensated * BNP elevated 314 * 1-2+ pitting edema * Furosemide 40mg PO daily, going to give one dose of 40mg IV now * Chest xray shows no cardiopulmonary disease * Entresto increased (4) Insulin dependent type 2 diabetes mellitus: Code(s): E11.9 - Type 2 diabetes mellitus without complications; Z79.4 - retirement (current) use of insulin Status: Acute Assessment and Plan: * Glucose is 123 on labs * Could be more elevated from steroids * Basal insulin 30 units Daily, increased to 40 * Initiate sliding scale insulin * Aspart 10units increased to 15 * Accu-Cheks * hypoglycemic protocol * Hemoglobin A1c on 05/16/21 8.5 * Adjust medications as needed (5) Elevated LFTs: Code(s): R79.89 - Other specified abnormal findings of blood chemistry Status: Acute Assessment and Plan: * AST/ALT 56/61 * LFT elevations over the years * hepatitis panel negative * Continue to trend LFTs * Abd ultrasound unremarkable (6) Chronic anticoagulation: Code(s): Z79.01 - retirement (current) use of anticoagulants Status: Acute Assessment and Plan: * Continue rivaroxaban for stroke prophylaxis * hx of paroxysmal atrial fibrillation/flutter * EKG shows SR * PT/PTT/INR normal (7) Hypertension: Code(s): I10 - Essential (primary) hypertension Status: Acute Assessment and Plan: * Current BP 138/87 this am * 90/51 currently * Continue home carvedilol 12.5 PO BID, Imdur 30mg PO daily, Entresto 1 tab Q12hr * Trend blood pressures * Adjust therapies as needed (8) Chest pain: Qualifiers: Chest pain type: unspecified Qualified Code(s): R07.9 - Chest pain, unspecified Code(s): R07.9 - Chest pain, unspecified Status: Acute Assessment and Plan: * Likely due to ongoing coughing over the last week * No significant pleuritic component * Hx of coronary artery disease however this seems inconsistent with cardiac chest pain * telemetry overnight no events noted * troponin negative * Patient sees Dr. Mishra and has an appointment coming up (9) Cough: Code(s): R05.9 - Cough, unspecified
--- NOTE | 2021-06-05 11:17 | PC.NURSE ---
Jv Velazquez Interventional Radiology Rn notified of pt refusing scheduled insulin this am due to sugar 106
--- NOTE | 2021-06-05 11:26 | PCRCNOTE ---
Window of time for administration has passed. See next scheduled administration.
[2021-06-05] MEDS: FLUTICASONE/SALMETEROL 115-21 MCG INHALER 1 PUFF 2 PUFF INHALATION (11:38)
[2021-06-05] MEDS: INSULIN GLARGINE (*BKC) 100 UNITS/ML 40 UNITS SUB-Q (11:48)
[2021-06-05] MEDS: INSULIN ASPART (*BKC) 100 UNITS/ML SUB-Q ×3 (11:51→22:43)
[2021-06-05] MEDS: INSULIN ASPART (*BKC) 100 UNITS/ML 15 UNITS SUB-Q ×2 (11:52→17:03)
[2021-06-05 11:57] LABS: Glucose Point of Care 404 mg/dl (65-105)
[2021-06-05] MEDS: levoFLOXacin 750 MG TABLET PO (13:24)
[2021-06-05 14:58] LABS: Glucose Point of Care 385 mg/dl (65-105)
[2021-06-05] MEDS: methylPREDNISolone SOD SUCC 40 MG VIAL IV PUSH (17:02)
[2021-06-05] MEDS: FUROSEMIDE INJ 40 MG/4 ML VIAL IV PUSH (17:02)
[2021-06-05] MEDS: RIVAROXABAN 20 MG TABLET PO (17:02)
[2021-06-05 17:23] LABS: Glucose Point of Care 294 mg/dl (65-105)
[2021-06-05] MEDS: MELATONIN 5 MG TABLET PO (20:38)
[2021-06-05] MEDS: rOPINIRole HCL 1 MG TABLET 3 MG PO (20:38)
[2021-06-05] MEDS: SACUBITRIL/VALSARTAN 49-51 MG TABLET 1 TABLET PO (20:38)
[2021-06-05 22:08] LABS: Glucose Point of Care 325 mg/dl (65-105)
[2021-06-06] VITALS (9 sets, daily range): BP systolic 110–111; BP diastolic 62–76; PULSE 74–114; RESP 18–20; TEMP 36.1–36.4; O2SAT 94–98
--- NOTE | 2021-06-06 | ECHO_ITS ---
Patient Info Name: Charlene Chen Age: 66 years : 1955 Gender: Female Ht: 65 in Wt: 238 lbs BSA: 2.28 m2 HR: 95 bpm BP: 111 / 62 mmHg Heart Rhythm: Sinus Rhythm Technical Quality: Good Exam Date: 06/06/2021 2:20 PM Exam Location: [facility] Patient Status: Inpatient Admit Date: 06/04/2021 Staff Ordering Physician: Galindo Velazquez Supervisor Car Installations: [employer] Attending Provider: Sirisha King MD Referring Physician: Marcus BOJORQUEZ; Exam Type: CA echo doppler color flow Study Info Indications - FLUID OVERLOAD Complete two-dimensional, color flow and Doppler transthoracic echocardiogram is performed. Summary 1. Complete two-dimensional, color flow and Doppler transthoracic echocardiogram is performed. 2. Mild left ventricular enlargement with normal wall thickness. The overall left ventricular function appears mild to moderately impaired with no segmental wall motion abnormalities. Although the calculated ejection fraction is 30 5%, visually it appears to be in the 40-45% range. Grade 2 diastolic dysfunction is present. There is a moderate reduction of global longitudinal strain consistent with systolic dysfunction. 3. Left atrial chamber dimension is moderately enlarged. 4. There appears to be a normally functioning mitral valve clip in place. There is mild mitral valve regurgitation. 5. Normal sinus rhythm. 6. Compared to the echo of November 2020, there has been improvement of left ventricular size and function. Left Ventricle Left ventricular chamber dimension is mildly enlarged. Left ventricular systolic function is normal, estimated at 40-45%. There is moderately increased left ventricular wall thickness. Left ventricular septal wall motion is normal. The left ventricular diastolic function is grade II diastolic dysfunction. Global longitudinal strain is moderately elevated at 13 %. Right Ventricle Right ventricular chamber dimension is normal. Right ventricular systolic function is normal. Left Atria Left atrial chamber dimension is moderately enlarged. Right Atria Right atrial chamber dimension is normal. Aortic Valve The aortic valve is trileaflet. There is no aortic valve sclerosis. There is no aortic valve stenosis. There is no aortic valve regurgitation. Pulmonic Valve The pulmonic valve is normal. There is no pulmonic valve stenosis. There is no pulmonic regurgitation. Mitral Valve The mitral valve has normal leaflets. There is no mitral valve stenosis. There appears to be a normally functioning mitral valve clip in place. There is mild mitral valve regurgitation. Tricuspid Valve The tricuspid valve leaflets are normal. There is no significant tricuspid valve stenosis. There is trace tricuspid valve regurgitation. No pulmonary hypertension, estimated pulmonary arterial systolic pressure is Empty. Pericardium/Pleural The pericardium appears normal. There is no pericardial effusion. Inferior Vena Cava Normal inferior vena cava with >50% collapse upon inspiration consistent with Empty right atrial pressure, Empty. Aorta The aortic root size at the sinus of Valsalva is normal. The prox ascending aorta size is normal. Left Ventricular Outflow Tract Name Value Normal LVOT 2D
[2021-06-06] MEDS: IPRATROPIUM BR 0.02% INH SOLN 0.5 MG/2.5 ML VIAL INHALATION ×2 (02:06→13:51)
[2021-06-06] MEDS: ALBUTEROL SULFATE NEB 2.5 MG/0.5 ML INH INHALATION ×2 (02:06→13:51)
[2021-06-06] MEDS: guaiFENesin/CODEINE (*CRX) 200/20 MG 10 ML SYRUP PO (02:25)
[2021-06-06] MEDS: SIMETHICONE 80 MG TAB.CHEW PO (05:19)
[2021-06-06 07:31] LABS: Basophils Percent Auto 0.4 % (0.2-1.2); Eosinophils Percent Auto 0.1 % (0-4.4); Hematocrit 44.6 % (37.0-47.0); Hemoglobin 14.6 g/dL (12.0-15.0); Lymphocytes Absolute Auto 1.52 K/mm3 (0.9-3.2); Lymphocytes Percent Auto 15.4 % (18.3-44.2); Mean Corpuscular HGB Conc 32.7 g/dl (32-36); Mean Corpuscular Hemoglobin 28.9 pg (26-34); Mean Corpuscular Volume 88.3 fl (80-100); Mean Platelet Volume 10.7 fl (7.4-10.4); Monocytes Absolute Auto 0.8 K/mm3 (0.1-0.6); Monocytes Percent Auto 8.3 % (2.6-8.5); Neutrophils Absolute Auto 7.4 K/mm3 (1.3-6.7); Neutrophils Percent Auto 74.8 % (45.5-73.1); Platelet Count Result 237 k/mm3 (150-375); Red Blood Count 5.05 M/mm3 (4.2-5.4); Red Cell Distribution Width 14.7 % (11.5-14.5); White Blood Count 9.8 K/mm3 (4.5-10.0)
[2021-06-06 08:00] LABS: Glucose Point of Care 177 mg/dl (65-105)
[2021-06-06] MEDS: INSULIN GLARGINE (*BKC) 100 UNITS/ML 40 UNITS SUB-Q (08:06)
[2021-06-06] MEDS: INSULIN ASPART (*BKC) 100 UNITS/ML 15 UNITS SUB-Q ×2 (08:07→12:38)
[2021-06-06] MEDS: ATORVASTATIN 40 MG TABLET PO (08:09)
[2021-06-06 08:10] LABS: Alanine Aminotransferase 91 U/L (4-35); Albumin Level 4.1 g/dL (3.5-5.1); Alkaline Phosphatase 171 U/L (38-126); Anion Gap 9 mmol/L (8-16); Aspartate Amino Transferase 85 U/L (14-36); Bilirubin,Total 0.7 mg/dL (0.2-1.3); Blood Urea Nitrogen 35 mg/dL (7-17); Calcium 9.2 mg/dL (8.4-10.2); Carbon Dioxide 29 mmol/L (22-30); Chloride 98 mmol/L (98-107); Estimated CRCL calculation 66 ml/min; Estimated Glomerular Filt Rate > 60; Glucose 202 mg/dL (65-110); Magnesium 2.7 mg/dL (1.6-2.3); Sodium 136 mmol/L (137-145)
[2021-06-06] MEDS: FUROSEMIDE 40 MG TABLET PO (08:10)
[2021-06-06] MEDS: carvediloL 12.5 MG TABLET PO (08:10)
[2021-06-06] MEDS: FERROUS SULFATE 324 MG TABLET PO (08:10)
[2021-06-06] MEDS: ISOSORBIDE MONONITRATE 60 MG TAB.ER.24H PO (08:10)
[2021-06-06] MEDS: SACUBITRIL/VALSARTAN 49-51 MG TABLET 1 TABLET PO (08:10)
[2021-06-06] MEDS: levoFLOXacin 750 MG TABLET PO (08:10)
[2021-06-06] MEDS: methylPREDNISolone SOD SUCC 40 MG VIAL IV PUSH (08:11)
[2021-06-06] MEDS: PREGABALIN (*CRX) 75 MG CAPSULE 150 MG PO (08:12)
--- NOTE | 2021-06-06 10:40 | PM.DS ---
DS: Admitting Diagnosis Discharge Date Date of service 06/06/21 at 10:40 a.m. Admitting Diagnosis Exacerbation of COPD DS: Discharge Diagnosis Discharge Diagnosis (1) Pneumonia: Code(s): J18.9 - Pneumonia, unspecified organism Status: Acute Assessment and Plan: Chest xray shows No acute cardiopulmonary abnormality. Sputum culture grew gram positive cocci, and was resulted to normal joão Currently on Zithromax completed today Consider Levaquin Culture grew normal joão tailor antibiotics to culture results Steroids Test for RSV and Pertussis (2) COPD exacerbation: Code(s): J44.1 - Chronic obstructive pulmonary disease with (acute) exacerbation Status: Acute Assessment and Plan: Complaints of increased wheezes, sputum with color changes (Brown and green), and Short of breath Wheezes, shortness of breath, and sputum continues, but seems to be better This seems to be an acute exacerbation at this time Scheduled nebulizers Steroids IV for now azithromycin for 5 days completed Sputum culture came back abnormal with gram positive cocci, and normal joão (3) Heart failure with reduced ejection fraction: Code(s): I50.20 - Unspecified systolic (congestive) heart failure Status: Acute Assessment and Plan: Clinically compensated BNP elevated 314 1-2+ pitting edema Furosemide 40mg PO daily, going to give one dose of 40mg IV now Chest xray shows no cardiopulmonary disease Entresto increased (4) Insulin dependent type 2 diabetes mellitus: Code(s): E11.9 - Type 2 diabetes mellitus without complications; 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.4 - 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 (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 (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) use of anticoagulants Status: Acute Assessment and Plan: Continue rivaroxaban for stroke prophylaxis hx of paroxysmal atrial fibrillation/flutter EKG shows SR PT/PTT/INR normal (7) Hypertension: Code(s): I10 - Essential (primary) hypertension Status: Acute Assessment and Plan: Current BP 138/87 this am 90/51 currently Continue home carvedilol 12.5 PO BID, Imdur 30mg PO daily, Entresto 1 tab Q12hr Trend blood pressures Adjust therapies as needed (8) Chest pain: Qualifiers: Chest pain type: unspecified Qualified Code(s): R07.9 - Chest pain, unspecified Code(s): R07.9 - Chest pain, unspecified Status: Acute Assessment and Plan: Likely due to ongoing coughing over the last week No significant pleuritic component Hx of coronary artery disease however this seems inconsistent with cardiac chest pain telemetry overnight no events noted troponin negative Patient sees Dr. Mishra and has an appointment coming up (9) Cough: Code(s): R05.9 - Cough, unspecified Status: Acute Assessment and Plan: Intense cough noted Guaifenesin with codeine Q 4 p.r.n. Changed steroids to 40 mg BID IV (10) Insomnia: Code(s): G47.00 - Insomnia, unspecified Status: Acute Assessment and Plan: Will add melatonin 10mg PO at bedtime DS: Summary Hospital Course Hospital Course: Patient is a 66-year-old female with past medical history of CHF, diabetes, and COPD
--- NOTE | 2021-06-06 10:40 | P.DS_ITS ---
DS: Admitting Diagnosis Discharge Date Date of service 06/06/21 at 10:40 a.m. Admitting Diagnosis Exacerbation of COPD DS: Discharge Diagnosis Discharge Diagnosis (1) Pneumonia: Code(s): J18.9 - Pneumonia, unspecified organism Status: Acute Assessment and Plan: * Chest xray shows No acute cardiopulmonary abnormality. * Sputum culture grew gram positive cocci, and was resulted to normal joão * Currently on Zithromax completed today * Consider Levaquin * Culture grew normal joão * tailor antibiotics to culture results * Steroids * Test for RSV and Pertussis (2) COPD exacerbation: Code(s): J44.1 - Chronic obstructive pulmonary disease with (acute) exacerbation Status: Acute Assessment and Plan: * Complaints of increased wheezes, sputum with color changes (Brown and green), and Short of breath * Wheezes, shortness of breath, and sputum continues, but seems to be better * This seems to be an acute exacerbation at this time * Scheduled nebulizers * Steroids IV for now * azithromycin for 5 days completed * Sputum culture came back abnormal with gram positive cocci, and normal joão (3) Heart failure with reduced ejection fraction: Code(s): I50.20 - Unspecified systolic (congestive) heart failure Status: Acute Assessment and Plan: * Clinically compensated * BNP elevated 314 * 1-2+ pitting edema * Furosemide 40mg PO daily, going to give one dose of 40mg IV now * Chest xray shows no cardiopulmonary disease * Entresto increased (4) Insulin dependent type 2 diabetes mellitus: Code(s): E11.9 - Type 2 diabetes mellitus without complications; Z79.4 - [employer]P (current) use of insulin Status: Acute Assessment and Plan: * Glucose is 123 on labs * Could be more elevated from steroids * Basal insulin 30 units Daily, increased to 40 * Initiate sliding scale insulin * Aspart 10units increased to 15 * Accu-Cheks * hypoglycemic protocol * Hemoglobin A1c on 05/16/21 8.5 * Adjust medications as needed (5) Elevated LFTs: Code(s): R79.89 - Other specified abnormal findings of blood chemistry Status: Acute Assessment and Plan: * AST/ALT 56/61 * LFT elevations over the years * hepatitis panel negative * Continue to trend LFTs * Abd ultrasound unremarkable (6) Chronic anticoagulation: Code(s): 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 Status: Acute Assessment and Plan: * Continue rivaroxaban for stroke prophylaxis * hx of paroxysmal atrial fibrillation/flutter * EKG shows SR * PT/PTT/INR normal (7) Hypertension: Code(s): I10 - Essential (primary) hypertension Status: Acute Assessment and Plan: * Current BP 138/87 this am * 90/51 currently * Continue home carvedilol 12.5 PO BID, Imdur 30mg PO daily, Entresto 1 tab Q12hr * Trend blood pressures * Adjust therapies as needed (8) Chest pain: Qualifiers: Chest pain type: unspecified Qualified Code(s): R07.9 - Chest pain, unspecified Code(s): R07.9 - Chest pain, unspecified Status: Acute Assessment and Plan: * Likely due to ongoing coughing over the last week * No significant pleuritic component * Hx of coronary artery disease however this seems inconsistent with cardiac chest pain * telemetry overnight no events noted * troponin negative * Patient
[2021-06-06 11:57] LABS: Glucose Point of Care 233 mg/dl (65-105)
--- NOTE | 2021-06-06 12:13 | PCRCNOTE ---
Window of time for administration has passed. See next scheduled administration.
[2021-06-06] MEDS: INSULIN ASPART (*BKC) 100 UNITS/ML SUB-Q (12:38)
--- NOTE | 2021-06-06 15:38 | HOMEO2EVAL ---
Evaluation was performed at [facility] Home Oxygen Evaluation RC: Home Oxygen (O2) Evaluation Start: 06/06/21 11:21 Freq: ONCE Status: Active Protocol: RPE Activity Type Activity Date Activity User E-Sign Co-Sign Detail Recorded Client Recorded Date Recorded By Document 06/06/21 15:10 [email or web address] 06/06/21 15:38 DJO Document 06/06/21 15:15 [email or web address] [email or web address] 06/06/21 15:38 DJO Document 06/06/21 15:30 [email or web address] [email or web address] 06/06/21 15:38 DJO 06/06/21 06/06/21 06/06/21 15:10 15:15 15:30 Home O2 Evaluation Test Phase Resting Exercise Resting Oxygen Delivery Room Air Room Air Room Air Pulse Oximetry (90-100 %) 96 95 96 Pulse Rate (60-100 beats/min) 89 114 H 95 Home Oxygen Evaluation Comments NO HOME O2 NEEDED Treatment Charges O2 Evaluation - Inpatient
--- NOTE | 2021-06-06 15:38 | PCRCNOTE ---
HOME O2 EVAL COMPLETED. NO HOME O2 NEEDED.
== END 2021-06-06 17:44 | disposition home or self-care (01) | DRG 194 ==
LOC: ANHED 15:15 → ANHIMU 15:25 → ANH3MEDSUR 06-03 03:02
PROVIDERS: Physician Assistant; Admitting Provider Internal Medicine; Emergency Provider Emergency Medicine; PCP Internal Medicine; Visit Provider Nurse Practitioner
DX: J18.9 Pneumonia, unspecified organism (principal); J44.1 Chronic obstructive pulmonary disease with (acute) exacerbation; J44.0 Chronic obstructive pulmonary disease with (acute) lower respiratory infection; I48.20 Chronic atrial fibrillation, unspecified; I50.42 Chronic combined systolic (congestive) and diastolic (congestive) heart failure; Z20.822 Contact with and (suspected) exposure to COVID-19; I11.0 Hypertensive heart disease with heart failure; G47.00 Insomnia, unspecified; F31.9 Bipolar disorder, unspecified; K90.0 Celiac disease; M06.9 Rheumatoid arthritis, unspecified; G25.81 Restless legs syndrome; E11.42 Type 2 diabetes mellitus with diabetic polyneuropathy; B96.89 Other specified bacterial agents as the cause of diseases classified elsewhere; K21.9 Gastro-esophageal reflux disease without esophagitis; I25.10 Atherosclerotic heart disease of native coronary artery without angina pectoris; G47.33 Obstructive sleep apnea (adult) (pediatric); Z96.651 Presence of right artificial knee joint; E66.01 Morbid (severe) obesity due to excess calories; Z68.39 Body mass index [BMI] 39.0-39.9, adult; Z79.4 Long term (current) use of insulin; Z79.01 Long term (current) use of anticoagulants; Z98.84 Bariatric surgery status; Z90.49 Acquired absence of other specified parts of digestive tract; Z87.442 Personal history of urinary calculi; Z90.710 Acquired absence of both cervix and uterus; Z86.73 Personal history of transient ischemic attack (TIA), and cerebral infarction without residual deficits
CPT/HCPCS: 36415; 71046; 76705; 80053; 80074; 80076; 82728; 82948; 83615; 83690; 83735; 83880; 84145; 84484; 85025; 85027; 85610; 85730; 86140; 87070; 87081; 87205; 87804; 92526; 92610; 93005; 93306; 94618; 94640; 96365; 96375; 96376; 99285; A9270; C9803; G0378; J0131; J1815; J1940; J2270; J2920; J2930; J7512; U0003; U0005

== ENCOUNTER 2021-06-24 16:29 | Observation (INO) | payer MEDICARE, SELFPAY ==
--- NOTE | ~2021-06-24 | US_ITS ---
EXAMINATION: US venous doppler [facility] DATE: 06/26/2021 10:27 INDICATION: Lower limb swelling. TECHNIQUE: Grayscale ultrasound images without and with compression and Doppler ultrasound images of the bilateral lower extremity veins were obtained. COMPARISON: Ultrasound 11/21/2020 FINDINGS: The visualized portions of right common femoral vein, profunda (deep) femoral vein, femoral vein, pop liteal vein, peroneal veins, posterior tibial veins, and greater saphenous vein outflow are patent. The visualized portions of left common femoral vein, profunda femoral vein, femoral vein, popliteal v ein, peroneal veins, posterior tibial veins, and greater saphenous vein outflow are patent. There is a small left-sided Garcia's cyst. IMPRESSION: 1. No deep venous thrombosis. 2. Small left-sided Garcia's cyst. Reviewed, dictated and finalized at location A. [facility] [employer]
[2021-06-24 13:06] VITALS: BP 131/80; PULSE 106; RESP 16; TEMP 36.7; O2SAT 99
[2021-06-24 15:21] VITALS: BP 129/59; PULSE 101; RESP 20; TEMP 36.7; O2SAT 100
[2021-06-24 17:04] LABS: Basophils Absolute Auto 0.1 K/mm3 (0.0-0.1); Basophils Percent Auto 0.8 % (0.2-1.2); Eosinophils Absolute Auto 0.2 K/mm3 (0-0.3); Eosinophils Percent Auto 2.9 % (0-4.4); Hematocrit 40.5 % (37.0-47.0); Hemoglobin 13.3 g/dL (12.0-15.0); Immature Granulocyte Absolute 0.03 K/mm3 (0.00-0.031); Immature Granulocyte Percent A 0.5 % (0-0.5); Lymphocytes Absolute Auto 1.47 K/mm3 (0.9-3.2); Mean Corpuscular HGB Conc 32.8 g/dl (32-36); Mean Corpuscular Volume 88.2 fl (80-100); Mean Platelet Volume 10.1 fl (7.4-10.4); Monocytes Absolute Auto 0.7 K/mm3 (0.1-0.6); Monocytes Percent Auto 11.7 % (2.6-8.5); Neutrophils Absolute Auto 3.5 K/mm3 (1.3-6.7); Neutrophils Percent Auto 59.1 % (45.5-73.1); Platelet Count Result 180 k/mm3 (150-375); Red Blood Count 4.59 M/mm3 (4.2-5.4); Red Cell Distribution Width 14.8 % (11.5-14.5); White Blood Count 5.9 K/mm3 (4.5-10.0)
--- NOTE | 2021-06-24 17:08 | ED.GENADULT ---
HPI - General Adult General Chief complaint: Extremity Problem,Nontraumatic Stated complaint: leg swelling Source: patient History of Present Illness HPI narrative: Patient is a 66 y/o female complaining bilateral lower leg pain for 1 1/2 weeks. She describes her pain as burning and states that it's like on fire. She rates her pain as 10/10. There is no known alleviating or exacerbating factor. She states that she saw her PCP last week who instructed her to put salve on her leg. However, this did not help. She has no fever, chills or SOB. Related Data Home Medications Medication Instructions Recorded Confirmed albuterol sulfate 90 mcg/actuation 1 inh INHALATION Q4H 01/21/21 06/24/21 aerosol inhaler budesonide-formoterol HFA 160 2 puff INHALATION Q12H 01/21/21 06/24/21 mcg-4.5 mcg/actuation aerosol inhaler cyclobenzaprine 10 mg tablet 10 mg PO TID tablet 01/21/21 06/24/21 insulin degludec 100 unit/mL (3 40 unit SUBCUT QAM ml 04/03/21 06/24/21 mL) subcutaneous pen rivaroxaban 20 mg tablet 20 mg PO DAILY 04/03/21 06/24/21 insulin lispro 100 unit/mL 15 unit SUBCUT TID ml 05/14/21 06/24/21 subcutaneous pen hydrocodone-acetaminophen 1 tablet PO Q8H PRN 06/01/21 06/24/21 isosorbide mononitrate 30 mg PO DAILY 06/01/21 06/24/21 nitroglycerin [Nitrostat] 0.4 mg SUBLINGUAL Q5-15M PRN 06/01/21 06/24/21 pregabalin [Lyrica] 150 mg PO Q12H 06/01/21 06/24/21 ropinirole 3 mg PO HS 06/01/21 06/24/21 carvedilol 25 mg tablet 6.25 mg PO Q12H tablet 06/12/21 06/24/21 furosemide 40 mg tablet 20 mg PO Q12H tablet 06/12/21 06/24/21 Allergies Allergy/AdvReac Type Severity Reaction Status Date / Time latex Allergy Severe HIVES Verified 06/22/21 22:45 Penicillins Allergy Severe HIVES Verified 06/22/21 22:45 diphenhydramine AdvReac Intermediate JERKY/JUMPY, Verified 06/22/21 22:45 GO CRAZY IN MY SKIN cephalexin [From Keflex] AdvReac Diarrhea Verified 06/22/21 22:45 Review of Systems Constitutional: Constitutional: Denies chills, Denies fever(s), Denies headache(s) and Denies weakness Eyes: Eyes: Denies blurry vision ENT: Denies headache(s) and Denies neck pain Cardiovascular: Cardiovascular: Denies chest pain and Denies dyspnea Respiratory: Respiratory: Denies cough and Denies dyspnea Gastrointestinal: Gastrointestinal: Denies abdominal pain, Denies diarrhea, Denies nausea and Denies vomiting Genitourinary: Genitourinary: Denies hematuria and Denies dysuria Musculoskeletal: Musculoskeletal: Denies back pain, Denies neck pain and Reports other (leg pain) Integumentary/Breasts: Skin/Breast: Reports swelling and Reports erythema (lower legs) Neurologic: Denies headache(s) and Denies weakness PMFSH Past Medical History Medical History Asthma Asthma Bipolar disorder Celiac disease Chronic anticoagulation On Xarelto for paroxysmal atrial fibrillation/flutter. Chronic obstructive pulmonary disease Coronary artery disease Diffuse severe LAD disease with positive IFR and moderate RCA disease noted on cardiac catheterization in 2019. Managed medically. Diabetic peripheral neuropathy Diverticulosis Gastroesophageal reflux disease Heart failure with reduced ejection fraction Follows with [facility] and Dr. Mishra. EF was 50% following MitraClip in 2019 though was her most recent ejection fraction was 20 to 25% in November 2020. Hyperlipidemia Hypertension Insulin dependent type 2 diabetes mellitus Hemoglobin A1c was 8.5% on 05/16/2021. Iron deficiency anemia With history of blood transfusion. Kidney stones Morbid obesity Status post gastric bypass surgery in September 2002 with a preoperative weight of 280 lb. Obstructive sleep apnea Paroxysmal atrial fibrillation Restless leg syndrome Rheumatoid arthritis Severe mitral valve regurgitation Status post MitraClip in 2019. Thyroid disease Patient no longer takes thyroid medicine. Transient is
[2021-06-24 17:16] LABS: Alanine Aminotransferase 82 U/L (4-35); Alkaline Phosphatase 150 U/L (38-126); Anion Gap 4 mmol/L (8-16); Aspartate Amino Transferase 48 U/L (14-36); Bilirubin,Total 0.6 mg/dL (0.2-1.3); Blood Urea Nitrogen 21 mg/dL (7-17); Calcium 9.5 mg/dL (8.4-10.2); Carbon Dioxide 33 mmol/L (22-30); Chloride 99 mmol/L (98-107); Estimated CRCL calculation 76 ml/min; Estimated Glomerular Filt Rate > 60; Glucose 245 mg/dL (65-110); Potassium 3.9 mmol/L (3.4-5.0); Sodium 136 mmol/L (137-145)
[2021-06-24 17:25] LABS: NT Pro B Type Natriuretic Pept 324 pg/mL (5-100)
[2021-06-24] MEDS: KETOROLAC 30 MG/ML VIAL (*BKC) IV PUSH ×2 (17:44→23:25)
[2021-06-24 18:00] LABS: Add Urine Microscopic? YES; Appearance Urine Clear (Clear); Bilirubin Urine Negative (Negative); Blood Urine Negative (Negative); Color Urine Yellow (Yellow); Glucose Urine UA 1+ mg/dL (Negative); Ketones Urine Negative (Negative); Leukocyte Esterase Ur Negative LEU/UL (Negative); Nitrate Urine Negative (Negative); Protein Urine Negative (Negative); RBC Urine 0-2 /hpf (0-2); Specific Grav Ur 1.014 (1.001-1.035); Squamous Epithelial Cell Urine Occasional /hpf (Few); WBC Urine 0-3 /hpf
[2021-06-24 19:18] VITALS: BP 124/64; PULSE 88; RESP 18; O2SAT 98
[2021-06-24 21:34] VITALS: BP 98/50; PULSE 95; RESP 18; TEMP 35.4; O2SAT 98
[2021-06-24 21:35] VITALS: BMI 40.6
[2021-06-24 21:43] VITALS: BP 98/50; PULSE 95; TEMP 35.4; BMI 40.6
--- NOTE | 2021-06-24 23:02 | PM.IMHP ---
H&P: HPI History of Present Illness Date/Time: 06/24/21 23:02 this is a 66-year-old diabetic female patient. She has been admitted here in the past for cellulitis. The patient came to the emergency room because she has been complaining of having bilateral lower leg pain for the last week and half. She states that she feels like they are on fire. There was nothing that the leaving. She saw her primary care doctor week ago who instructed her to but stab on her legs. However she stated did help. She has chronic lymphedema and has been to the lymphedema clinic in the past. She stated that it just did not help. The patient was started on the antibiotic stewardship for cellulitis. She has had Primaxin in the past and has done well with that. Even though she has a cephalexin and penicillin allergy. Her white count is normal. And lower extremities to both legs are red and warm. Her blood sugar was noted to be 245. The patient was given Toradol in the emergency room. She was started on Levaquin vancomycin in the emergency room. I changed to vancomycin and Primaxin as she has had Primaxin in the past and tolerated it. The patient is being admitted to observation status on the date of service of 06/24/2021. Chief Complaint: Cellulitis to lower extremity Review of Systems Review of Systems: All systems reviewed & are unremarkable except as noted in HPI and below Constitutional: Constitutional: Reports as per HPI and Reports no additional constitutional complaints Eyes: Eyes: Reports as per HPI and Reports no additional eye complaints ENT: Reports system reviewed and no additional complaints, except as documented and Reports Normal hearing present Cardiovascular: Cardiovascular: Reports no additional cardiovascular complaints Respiratory: Respiratory: Reports no additional respiratory complaints and Reports no additional respiratory complaints Gastrointestinal: Gastrointestinal: Reports as per HPI and Reports no additional gastrointestinal complaints Musculoskeletal: Musculoskeletal: Reports no additional musculoskeletal complaints Integumentary/Breasts: Skin/Breast: Reports system reviewed and no additional complaints, except as docu and Reports as per HPI Neurologic: Reports system reviewed and no additional complaints, except as documented, Reports as per HPI and Reports Normal hearing present Psychiatric: Psychiatric: Reports no additional psychiatric complaints and Reports as per HPI Endocrine: Endocrine: Reports no additional endocrine complaints Hematologic/Lymphatic: Hematologic/Lymphatic: Reports no additional hematologic/lymphatic complaints Allergic/Immunologic: Allergic/Immunologic: Reports no additional allergic/immunologic complaints [facility] Past Medical History Medical History Asthma Asthma Bipolar disorder Celiac disease Chronic anticoagulation On Xarelto for paroxysmal atrial fibrillation/flutter. Chronic obstructive pulmonary disease Coronary artery disease Diffuse severe LAD disease with positive IFR and moderate RCA disease noted on cardiac catheterization in 2019. Managed medically. Diabetic peripheral neuropathy Diverticulosis Gastroesophageal reflux disease Heart failure with reduced ejection fraction Follows with [facility]iology and Dr. Mishra. EF was 50% following MitraClip in 2019 though was her most recent ejection fraction was 20 to 25% in November 2020. Hyperlipidemia Hypertension Insulin dependent type 2 diabetes mellitus Hemoglobin A1c was 8.5% on 05/16/2021. Iron deficiency anemia With history of blood transfusion. Kidney stones Morbid obesity Status post gastric bypass surgery in September 2002 with a preoperative weight of 280 lb. Obstructive sleep apnea Paroxysmal atrial fibrillation Restless leg syndrome Rheumatoid arthritis Severe mitral valve regurgitation Status post MitraClip in 2019. Thyroid disease Patient no longer
[2021-06-24 23:58] VITALS: BP 118/55; PULSE 91; RESP 18; TEMP 36.3; O2SAT 98
[2021-06-25] VITALS (12 sets, daily range): BP systolic 114–130; BP diastolic 56–98; PULSE 79–93; RESP 18; TEMP 36.2–36.3; O2SAT 96–100
[2021-06-25] MEDS: MELATONIN 5 MG TABLET PO ×2 (00:21→20:55)
[2021-06-25] MEDS: CYCLOBENZAPRINE HCL 10 MG TABLET PO ×4 (00:21→17:06)
[2021-06-25] MEDS: SACUBITRIL/VALSARTAN 49-51 MG TABLET 1 TABLET PO ×3 (00:21→20:55)
[2021-06-25] MEDS: rOPINIRole HCL 1 MG TABLET 3 MG PO ×3 (00:21→20:55)
[2021-06-25] MEDS: carvediloL 6.25 MG TABLET PO ×3 (00:21→20:55)
[2021-06-25] MEDS: FUROSEMIDE 20 MG TABLET PO ×3 (00:21→20:55)
[2021-06-25] MEDS: INSULIN ASPART (*BKC) 100 UNITS/ML SUB-Q ×3 (00:22→12:44)
[2021-06-25] MEDS: ALBUTEROL SULFATE (*SP) AEROSOL 1 PUFF INHALATION ×5 (01:16→20:46)
--- NOTE | 2021-06-25 03:01 | ADMGEN ---
This patient, Charlene Chen, was admitted to [facility] Surg Room 301-01. Patient/family oriented to hospital policies and general routines including ID bracelet, bed and alarms, visiting hours, pain management, procedures, bathroom and other care routines, personal items, smoking policy, room service/diet, and visiting hours. Information on how to activate the Rapid Response Team has been discussed. Patient/Family are encouraged to report perceived risks to care and to ask questions if they do not understand what they are told or what they should do.
[2021-06-25] MEDS: HYDROcodone/acetaminophen (*CRX) 7.5-325 MG TABLET 1 TAB PO ×3 (05:06→21:01)
[2021-06-25 05:59] LABS: Basophils Percent Auto 0.7 % (0.2-1.2); Eosinophils Absolute Auto 0.2 K/mm3 (0-0.3); Eosinophils Percent Auto 4.2 % (0-4.4); Hematocrit 39.1 % (37.0-47.0); Hemoglobin 12.5 g/dL (12.0-15.0); Immature Granulocyte Absolute 0.02 K/mm3 (0.00-0.031); Immature Granulocyte Percent A 0.5 % (0-0.5); Lymphocytes Absolute Auto 0.97 K/mm3 (0.9-3.2); Lymphocytes Percent Auto 23.7 % (18.3-44.2); Mean Corpuscular Hemoglobin 28.9 pg (26-34); Mean Corpuscular Volume 90.5 fl (80-100); Mean Platelet Volume 10.5 fl (7.4-10.4); Monocytes Absolute Auto 0.6 K/mm3 (0.1-0.6); Monocytes Percent Auto 13.9 % (2.6-8.5); Neutrophils Absolute Auto 2.3 K/mm3 (1.3-6.7); Platelet Count Result 161 k/mm3 (150-375); Red Blood Count 4.32 M/mm3 (4.2-5.4); Red Cell Distribution Width 15.3 % (11.5-14.5); White Blood Count 4.1 K/mm3 (4.5-10.0)
[2021-06-25 06:29] LABS: Alanine Aminotransferase 75 U/L (4-35); Albumin Level 3.7 g/dL (3.5-5.1); Alkaline Phosphatase 130 U/L (38-126); Anion Gap 4 mmol/L (8-16); Aspartate Amino Transferase 50 U/L (14-36); Bilirubin,Total 0.7 mg/dL (0.2-1.3); Blood Urea Nitrogen 24 mg/dL (7-17); Calcium 8.9 mg/dL (8.4-10.2); Carbon Dioxide 31 mmol/L (22-30); Chloride 98 mmol/L (98-107); Estimated CRCL calculation 69 ml/min; Estimated Glomerular Filt Rate > 60; Glucose 252 mg/dL (65-110); Potassium 3.9 mmol/L (3.4-5.0); Sodium 133 mmol/L (137-145)
[2021-06-25] MEDS: FERROUS SULFATE 324 MG TABLET PO ×2 (07:53→17:06)
[2021-06-25] MEDS: ATORVASTATIN 40 MG TABLET PO (07:53)
[2021-06-25] MEDS: ISOSORBIDE MONONITRATE 30 MG TAB.ER.24H PO (07:53)
[2021-06-25] MEDS: PREGABALIN (*CRX) 75 MG CAPSULE 150 MG PO ×2 (07:59→20:56)
[2021-06-25 08:01] LABS: Glucose Point of Care 205 mg/dl (65-105)
[2021-06-25] MEDS: INSULIN ASPART (*BKC) 100 UNITS/ML 15 UNITS SUB-Q ×3 (08:11→17:06)
[2021-06-25] MEDS: INSULIN GLARGINE (*BKC) 100 UNITS/ML 40 UNITS SUB-Q (09:26)
--- NOTE | 2021-06-25 11:03 | PCRCNOTE ---
Window of time for administration has passed. See next scheduled administration.
[2021-06-25 11:28] LABS: Glucose Point of Care 248 mg/dl (65-105)
--- NOTE | 2021-06-25 13:00 | PM.IMPN ---
Progress Note: A&P Assessment and Plan (1) Cellulitis of lower leg: Code(s): L03.119 - Cellulitis of unspecified part of limb Status: Acute Assessment and Plan: Legs are very swollen, the calves are red, painful History of cellulitis back in November Primaxin and vancomycin started had both antibiotics in the past and has done well Blood cultures show no growth to date Elevate extremities 40mg IV lasix daily (2) Heart failure with reduced ejection fraction: Code(s): I50.20 - Unspecified systolic (congestive) heart failure Status: Acute Assessment and Plan: Probably not in an acute exacerbation Echo from 06/06/21 shows EF of 40-45% with a grade 2 diastolic dysfunction Lasix 40mg IV daily Continue home Entresto Continue with isosorbide and Coreg Trend urinary output Daily weights BNP is not bad 324 (3) Obstructive sleep apnea: Code(s): G47.33 - Obstructive sleep apnea (adult) (pediatric) Status: Acute Assessment and Plan: CPAP per home setting (4) Hyperlipidemia: Code(s): E78.5 - Hyperlipidemia, unspecified Status: Acute Assessment and Plan: Continue atorvastatin 40mg PO daily (5) Hypertension: Code(s): I10 - Essential (primary) hypertension Status: Acute Assessment and Plan: BP 115/56 Continue with Entresto, isosorbide, and Lasix, Coreg Trend BP Adjust therapy as indicated (6) Insulin dependent type 2 diabetes mellitus: Code(s): E11.9 - Type 2 diabetes mellitus without complications; Z79.4 - 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 Status: Acute Assessment and Plan: Glucose 252 Accu-Cheks AC and HS Sliding scale insulin Continue home lantus 40 units daily Aspart 15 units with meals Trend glucose adjust therapy as indicated (7) Chronic obstructive pulmonary disease: Code(s): J44.9 - Chronic obstructive pulmonary disease, unspecified Status: Acute Assessment and Plan: Continue with home inhalers. (8) Paroxysmal atrial fibrillation: Code(s): I48.0 - Paroxysmal atrial fibrillation Status: Acute Assessment and Plan: Continue with Coreg continue with Xarelto (9) Hyperlipidemia LDL goal <100: Code(s): E78.5 - Hyperlipidemia, unspecified Status: Acute Assessment and Plan: Atorvastatin (10) Anemia: Qualifiers: Anemia type: unspecified type Qualified Code(s): D64.9 - Anemia, unspecified Code(s): D64.9 - Anemia, unspecified Status: Acute Assessment and Plan: H/H 12.5/39.1 stable at this time Trend Continue to monitor (11) Major depressive disorder with current active episode: Qualifiers: Major depression recurrence: recurrent Major depression episode severity: moderate Qualified Code(s): F33.1 - Major depressive disorder, recurrent, moderate Code(s): F32.9 - Major depressive disorder, single episode, unspecified Status: Acute Assessment and Plan: Continue home medications Time Spent With Patient Time with patient: Greater than 35 minutes Subjective Date/time seen: 06/25/21 13:00 Interval history: Date/Time: 06/24/21 23:02 This is a 66-year-old diabetic female patient. She has been admitted here in the past for cellulitis. The patient came to the emergency room because she has been complaining of having bilateral lower leg pain for the last week and half. She states that she feels like they are on fire. There was nothing that the leaving. She saw her primary care doctor week ago who instructed her to but stab on her legs. However she stated did help. She has chronic lymphedema and has been to the lymphedema clinic in the past. She stated that it just did not help. The patient was started on the antibiotic stewardship for cellulitis. She has had Prim
--- NOTE | 2021-06-25 13:00 | P.PNIM_ITS ---
Progress Note: A&P Assessment and Plan (1) Cellulitis of lower leg: Code(s): L03.119 - Cellulitis of unspecified part of limb Status: Acute Assessment and Plan: * Legs are very swollen, the calves are red, painful * History of cellulitis back in November * Primaxin and vancomycin started * had both antibiotics in the past and has done well * Blood cultures show no growth to date * Elevate extremities * 40mg IV lasix daily (2) Heart failure with reduced ejection fraction: Code(s): I50.20 - Unspecified systolic (congestive) heart failure Status: Acute Assessment and Plan: * Probably not in an acute exacerbation * Echo from 06/06/21 shows EF of 40-45% with a grade 2 diastolic dysfunction * Lasix 40mg IV daily * Continue home Entresto * Continue with isosorbide and Coreg * Trend urinary output * Daily weights * BNP is not bad 324 (3) Obstructive sleep apnea: Code(s): G47.33 - Obstructive sleep apnea (adult) (pediatric) Status: Acute Assessment and Plan: * CPAP per home setting (4) Hyperlipidemia: Code(s): E78.5 - Hyperlipidemia, unspecified Status: Acute Assessment and Plan: * Continue atorvastatin 40mg PO daily (5) Hypertension: Code(s): I10 - Essential (primary) hypertension Status: Acute Assessment and Plan: * BP 115/56 * Continue with Entresto, isosorbide, and Lasix, Coreg * Trend BP * Adjust therapy as indicated (6) Insulin dependent type 2 diabetes mellitus: Code(s): E11.9 - Type 2 diabetes mellitus without complications; 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 (8) Paroxysmal atrial fibrillation: Code(s): I48.0 - Paroxysmal atrial fibrillation Status: Acute Assessment and Plan: * Continue with Coreg * continue with Xarelto (9) Hyperlipidemia LDL goal <100: Code(s): E78.5 - Hyperlipidemia, unspecified Status: Acute Assessment and Plan: * Atorvastatin (10) Anemia: Qualifiers: Anemia type: unspecified type Qualified Code(s): D64.9 - Anemia, uns pecified Code(s): D64.9 - Anemia, unspecified Status: Acute Assessment and Plan: * H/H 12.5/39.1 * stable at this time * Trend * Continue to monitor (11) Major depressive disorder with current active episode: Qualifiers: Major depression recurrence: recurrent Major depression episode severity: moderate Qualified Code(s): F33.1 - Major depressive disorder, recurrent, moderate Code(s): F32.9 - Major depressive disorder, single episode, unspecified Status: Acute Assessment and Plan: * Continue home medications Time Spent With Patient Time with patient: Greater than 35 minutes Subjective Date/time seen: 06/25/21 13:00 Interval history: Date/Time: 06/24/21 23:02 Thi
[2021-06-25 16:57] LABS: Glucose Point of Care 190 mg/dl (65-105)
[2021-06-25] MEDS: RIVAROXABAN 20 MG TABLET PO (17:06)
[2021-06-25] MEDS: FLUTICASONE/SALMETEROL 115-21 MCG INHALER 1 PUFF 2 PUFF INHALATION (20:47)
[2021-06-25 21:16] LABS: Glucose Point of Care 169 mg/dl (65-105)
[2021-06-26] VITALS (8 sets, daily range): BP systolic 100–118; BP diastolic 57–63; PULSE 73–98; RESP 18; TEMP 35.7–36.7; O2SAT 97–99
[2021-06-26] MEDS: HYDROmorphone HCL INJ (*CRX) 1 MG/ML SYR 0.5 MG IV PUSH (02:30)
--- NOTE | 2021-06-26 03:06 | PCRCNOTE ---
Window of time for administration has passed. See next scheduled administration.
[2021-06-26] MEDS: ALBUTEROL SULFATE (*SP) AEROSOL 1 PUFF INHALATION ×4 (03:31→21:15)
[2021-06-26 08:30] LABS: Basophils Percent Auto 0.7 % (0.2-1.2); Eosinophils Absolute Auto 0.2 K/mm3 (0-0.3); Eosinophils Percent Auto 4.6 % (0-4.4); Hematocrit 40.1 % (37.0-47.0); Hemoglobin 13.1 g/dL (12.0-15.0); Immature Granulocyte Absolute 0.03 K/mm3 (0.00-0.031); Immature Granulocyte Percent A 0.7 % (0-0.5); Lymphocytes Absolute Auto 1.15 K/mm3 (0.9-3.2); Mean Corpuscular HGB Conc 32.7 g/dl (32-36); Mean Corpuscular Hemoglobin 28.5 pg (26-34); Mean Corpuscular Volume 87.2 fl (80-100); Mean Platelet Volume 10.4 fl (7.4-10.4); Monocytes Absolute Auto 0.5 K/mm3 (0.1-0.6); Monocytes Percent Auto 10.7 % (2.6-8.5); Neutrophils Absolute Auto 2.7 K/mm3 (1.3-6.7); Neutrophils Percent Auto 58.3 % (45.5-73.1); Platelet Count Result 187 k/mm3 (150-375); White Blood Count 4.6 K/mm3 (4.5-10.0)
[2021-06-26 08:32] LABS: Glucose Point of Care 252 mg/dl (65-105)
[2021-06-26] MEDS: FUROSEMIDE 20 MG TABLET PO ×2 (08:37→21:02)
[2021-06-26 08:38] LABS: Alanine Aminotransferase 76 U/L (4-35); Albumin Level 3.8 g/dL (3.5-5.1); Alkaline Phosphatase 158 U/L (38-126); Anion Gap 7 mmol/L (8-16); Aspartate Amino Transferase 48 U/L (14-36); Bilirubin,Total 0.7 mg/dL (0.2-1.3); Blood Urea Nitrogen 25 mg/dL (7-17); Calcium 8.9 mg/dL (8.4-10.2); Carbon Dioxide 28 mmol/L (22-30); Chloride 102 mmol/L (98-107); Estimated CRCL calculation 77 ml/min; Estimated Glomerular Filt Rate > 60; Glucose 257 mg/dL (65-110); Magnesium 2.2 mg/dL (1.6-2.3); Potassium 4.1 mmol/L (3.4-5.0); Sodium 137 mmol/L (137-145)
[2021-06-26] MEDS: CYCLOBENZAPRINE HCL 10 MG TABLET PO ×3 (08:38→16:42)
[2021-06-26] MEDS: carvediloL 6.25 MG TABLET PO ×2 (08:38→21:02)
[2021-06-26] MEDS: SACUBITRIL/VALSARTAN 49-51 MG TABLET 1 TABLET PO ×2 (08:38→21:02)
[2021-06-26] MEDS: ATORVASTATIN 40 MG TABLET PO (08:38)
[2021-06-26] MEDS: FERROUS SULFATE 324 MG TABLET PO ×2 (08:38→16:42)
[2021-06-26] MEDS: ISOSORBIDE MONONITRATE 30 MG TAB.ER.24H PO (08:38)
[2021-06-26] MEDS: INSULIN GLARGINE (*BKC) 100 UNITS/ML 40 UNITS SUB-Q (08:39)
[2021-06-26] MEDS: INSULIN ASPART (*BKC) 100 UNITS/ML SUB-Q ×3 (08:41→17:16)
[2021-06-26] MEDS: INSULIN ASPART (*BKC) 100 UNITS/ML 15 UNITS SUB-Q ×3 (08:41→17:16)
[2021-06-26] MEDS: PREGABALIN (*CRX) 75 MG CAPSULE 150 MG PO ×2 (08:44→21:02)
[2021-06-26 09:12] LABS: Vancomycin Trough 24.3 ug/mL (10.0-20.0)
[2021-06-26] MEDS: FLUTICASONE/SALMETEROL 115-21 MCG INHALER 1 PUFF 2 PUFF INHALATION ×3 (11:20→21:15)
[2021-06-26 12:27] LABS: Glucose Point of Care 242 mg/dl (65-105)
--- NOTE | 2021-06-26 15:13 | PM.IMPN ---
Progress Note: A&P Assessment and Plan (1) Cellulitis of lower leg: Code(s): L03.119 - Cellulitis of unspecified part of limb Status: Acute Assessment and Plan: Likely contact dermatitis with possible secondary infection and swelling from recent travel. U/S shows no DVT -continue imipenem and vanc -continue to elevate and home oral lasix -if they continue to improve may be able to discharge tomorrow on oral abx -blood cultures NGTD (2) Heart failure with reduced ejection fraction: Code(s): I50.20 - Unspecified systolic (congestive) heart failure Status: Acute Assessment and Plan: Euvolemic at this time, no signs of acute heart failure -Echo from 06/06/21 shows EF of 40-45% with a grade 2 diastolic dysfunction -continue home oral lasix, entresto, coreg and isosorbide (3) Obstructive sleep apnea: Code(s): G47.33 - Obstructive sleep apnea (adult) (pediatric) Status: Acute Assessment and Plan: Continue cpap (4) Hyperlipidemia: Code(s): E78.5 - Hyperlipidemia, unspecified Status: Acute Assessment and Plan: chronic, continue oral therapy (5) Hypertension: Code(s): I10 - Essential (primary) hypertension Status: Acute Assessment and Plan: last bp 1185/63 -Continue with Entresto, isosorbide, and Lasix, Coreg (6) Insulin dependent type 2 diabetes mellitus: Code(s): E11.9 - Type 2 diabetes mellitus without complications; Z79.4 - penitentiary (current) use of insulin Status: Acute Assessment and Plan: Last glucose 242 -Continue meal time insulin, lantus, and SSI (7) Chronic obstructive pulmonary disease: Code(s): J44.9 - Chronic obstructive pulmonary disease, unspecified Status: Acute Assessment and Plan: No acute exacerbation -continue inhalers (8) Paroxysmal atrial fibrillation: Code(s): I48.0 - Paroxysmal atrial fibrillation Status: Acute Assessment and Plan: Appears to be in NSR at this time -Continue with Coreg and Xarelto (9) Hyperlipidemia LDL goal <100: Code(s): E78.5 - Hyperlipidemia, unspecified Status: Acute Assessment and Plan: chronic Time Spent With Patient Time with patient: 25 - 35 minutes Subjective Date/time seen: 06/26/21 15:13 Interval history: Pt is a 66 y/o female here for LE cellulitis. Pt was seen today and states her legs are improving. They are still somewhat red but much better than they were. She mentions that anytime she puts product on them they have a severe reaction. She did this last thursday and then the vasaline started burning so she scrubbed them with multiple soaps and hipolito dish soap to get it off. Since then they have been more red. She then went on a road trip and had them dependent which worsened them. Today she denies CP, SOB, fevers, chills, nausea, vomiting, diarrhea or constipation. Review of Systems Review of Systems: All systems reviewed & are unremarkable except as noted in HPI and below Exam Narrative: General: Well developed well nourished patient in NAD HEENT: normocephalic Neck: supple Neuro: Alert and oriented x4 CV:RRR Resp:CTA Abd: Soft, non distended. No pain to palpation. Positive bowel sounds Extremities: LE with bilateral erythema, worse to the left leg and mostly on the ventral aspect. Minimal swelling. Objective Data Vital Signs Vital Signs: Vital Signs - 24 hr 06/25/21 16:26 06/25/21 20:53 06/25/21 20:55 Temperature Pulse Rate 79 Respiratory Rate Blood Pressure Pulse Oximetry 97 96 06/25/21 22:00 06/26/21 06:00 06/26/21 08:00 Temperature 97.3 F L 96.3 F L Pulse Rate 93 73 74 Respiratory Rate 18 18 18 Blood Pressure 114/98 H 118/63 Pulse Oximetry 97 99 98 06/26/21 08:38 06/26/21 11:25 Temperature Pulse Rate 74 Respiratory Rate Blood Pressure Pulse Oximetry 98 Intake/Out
[2021-06-26] MEDS: RIVAROXABAN 20 MG TABLET PO (16:43)
[2021-06-26 17:17] LABS: Glucose Point of Care 227 mg/dl (65-105)
[2021-06-26] MEDS: HYDROcodone/acetaminophen (*CRX) 7.5-325 MG TABLET 1 TAB PO (21:01)
[2021-06-26] MEDS: rOPINIRole HCL 1 MG TABLET 3 MG PO (21:02)
[2021-06-26] MEDS: MELATONIN 5 MG TABLET PO (21:02)
[2021-06-26 21:23] LABS: Glucose Point of Care 183 mg/dl (65-105)
[2021-06-27] VITALS (9 sets, daily range): BP systolic 121–135; BP diastolic 71–92; PULSE 78–105; RESP 18–20; TEMP 35.8–36.2; O2SAT 96–100
[2021-06-27] MEDS: ALBUTEROL SULFATE (*SP) AEROSOL 1 PUFF INHALATION ×5 (00:28→20:00)
[2021-06-27 03:44] LABS: Glucose Point of Care 181 mg/dl (65-105)
[2021-06-27] MEDS: HYDROmorphone HCL INJ (*CRX) 1 MG/ML SYR 0.5 MG IV PUSH ×2 (03:49→17:07)
[2021-06-27 06:43] LABS: Estimated CRCL calculation 87 ml/min; Estimated Glomerular Filt Rate > 60
[2021-06-27 08:14] LABS: Glucose Point of Care 177 mg/dl (65-105)
[2021-06-27] MEDS: INSULIN GLARGINE (*BKC) 100 UNITS/ML 40 UNITS SUB-Q (09:55)
[2021-06-27] MEDS: CYCLOBENZAPRINE HCL 10 MG TABLET PO ×3 (09:56→17:12)
[2021-06-27] MEDS: INSULIN ASPART (*BKC) 100 UNITS/ML 15 UNITS SUB-Q ×3 (09:56→17:14)
[2021-06-27] MEDS: ATORVASTATIN 40 MG TABLET PO (09:56)
[2021-06-27] MEDS: FUROSEMIDE 20 MG TABLET PO ×2 (09:56→21:24)
[2021-06-27] MEDS: SACUBITRIL/VALSARTAN 49-51 MG TABLET 1 TABLET PO ×2 (09:56→21:24)
[2021-06-27] MEDS: carvediloL 6.25 MG TABLET PO ×2 (09:56→21:24)
[2021-06-27] MEDS: FERROUS SULFATE 324 MG TABLET PO ×2 (09:56→17:12)
[2021-06-27] MEDS: ISOSORBIDE MONONITRATE 30 MG TAB.ER.24H PO (09:56)
[2021-06-27] MEDS: PREGABALIN (*CRX) 75 MG CAPSULE 150 MG PO ×2 (09:56→21:24)
--- NOTE | 2021-06-27 10:54 | PCRCNOTE ---
Window of time for administration has passed. See next scheduled administration.
[2021-06-27 11:42] LABS: Glucose Point of Care 310 mg/dl (65-105)
[2021-06-27] MEDS: INSULIN ASPART (*BKC) 100 UNITS/ML SUB-Q (12:20)
[2021-06-27] MEDS: HYDROcodone/acetaminophen (*CRX) 7.5-325 MG TABLET 1 TAB PO (12:21)
--- NOTE | 2021-06-27 14:18 | PM.IMPN ---
Progress Note: A&P Assessment and Plan (1) Cellulitis of lower leg: Code(s): L03.119 - Cellulitis of unspecified part of limb Status: Acute Assessment and Plan: Likely contact dermatitis with possible secondary infection and swelling from recent travel. U/S shows no DVT -continue imipenem and vanc -continue to elevate and home oral lasix -will add hydrocortisone ointment -if they continue to improve may be able to discharge tomorrow on oral abx -blood cultures NGTD (2) Heart failure with reduced ejection fraction: Code(s): I50.20 - Unspecified systolic (congestive) heart failure Status: Acute Assessment and Plan: Euvolemic at this time, no signs of acute heart failure -Echo from 06/06/21 shows EF of 40-45% with a grade 2 diastolic dysfunction -continue home oral lasix, entresto, coreg and isosorbide (3) Obstructive sleep apnea: Code(s): G47.33 - Obstructive sleep apnea (adult) (pediatric) Status: Acute Assessment and Plan: Continue cpap (4) Hyperlipidemia: Code(s): E78.5 - Hyperlipidemia, unspecified Status: Acute Assessment and Plan: chronic, continue oral therapy (5) Hypertension: Code(s): I10 - Essential (primary) hypertension Status: Acute Assessment and Plan: last bp 121/92 -Continue with Entresto, isosorbide, and Lasix, Coreg (6) Insulin dependent type 2 diabetes mellitus: Code(s): E11.9 - Type 2 diabetes mellitus without complications; Z79.4 - longterm (current) use of insulin Status: Acute Assessment and Plan: Last glucose 310 but has been doing pretty well cyst on the current regimen prior to this -Continue meal time insulin, lantus, and SSI (7) Chronic obstructive pulmonary disease: Code(s): J44.9 - Chronic obstructive pulmonary disease, unspecified Status: Acute Assessment and Plan: No acute exacerbation -continue inhalers (8) Paroxysmal atrial fibrillation: Code(s): I48.0 - Paroxysmal atrial fibrillation Status: Acute Assessment and Plan: Appears to be in NSR at this time -she was a little tachycardic earlier but better on exam. -Continue with Coreg and Xarelto (9) Hyperlipidemia LDL goal <100: Code(s): E78.5 - Hyperlipidemia, unspecified Status: Acute Assessment and Plan: chronic (10) Transaminitis: Code(s): R74.01 - Elevation of levels of liver transaminase levels Status: Acute Assessment and Plan: Noted in the past last month as well and unchanged -u/s at that time showed no issues. hepatitis screen negative -follow up with pcp Subjective Date/time seen: 06/27/21 14:18 Interval history: Pt is a 66 y/o female here for LE cellulitis. Pt was seen today and states she thinks the legs look a little worse. They continue to itch immensely and burn. No night sweats, fevers or diarrhea. She also denies chest pain, shortness of breath, nausea or vomiting. She is eating and drinking well Exam Narrative: General: Well developed well nourished patient in NAD HEENT: normocephalic Neck: supple Neuro: Alert and oriented x4 CV:RRR Resp:CTA Abd: Soft, non distended. No pain to palpation. Positive bowel sounds Extremities: LE with bilateral erythema, worse to the left leg but also noted on the right leg circumferentially. Minimal swelling. Objective Data Vital Signs Vital Signs: Vital Signs - 24 hr 06/26/21 21:00 06/26/21 21:02 06/26/21 22:00 Temperature 96.9 F L Pulse Rate 80 80 92 Respiratory Rate 18 18 Blood Pressure 100/60 Pulse Oximetry 97 06/27/21 00:30 06/27/21 03:06 06/27/21 06:00 Temperature 96.5 F L Pulse Rate 80 80 104 H Respiratory Rate 18 18 18 Blood Pressure 135/79 Pulse Oximetry 100 06/27/21 09:56 06/27/21 13:46 Temperature 97.2 F L Pulse Rate 104 H 105 H Respiratory Rate 18 Blood Pressure 1
[2021-06-27 16:29] LABS: Glucose Point of Care 90 mg/dl (65-105)
[2021-06-27] MEDS: RIVAROXABAN 20 MG TABLET PO (17:12)
[2021-06-27] MEDS: HYDROCORTISONE 1% 30 GM OINTMENT 1 APPLIC TOPICAL ×2 (18:39→21:25)
[2021-06-27] MEDS: FLUTICASONE/SALMETEROL 115-21 MCG INHALER 1 PUFF 2 PUFF INHALATION (20:00)
[2021-06-27] MEDS: rOPINIRole HCL 1 MG TABLET 3 MG PO (21:23)
[2021-06-27] MEDS: SILVER SULFADIAZINE 1% CR 50 GM JAR (*BKC) 1 APPLIC TOPICAL (21:24)
[2021-06-27] MEDS: MELATONIN 5 MG TABLET PO (21:24)
[2021-06-27 21:49] LABS: Glucose Point of Care 133 mg/dl (65-105)
[2021-06-28] MEDS: HYDROcodone/acetaminophen (*CRX) 7.5-325 MG TABLET 1 TAB PO (00:49)
[2021-06-28] MEDS: ALBUTEROL SULFATE (*SP) AEROSOL 1 PUFF INHALATION (03:57)
[2021-06-28] MEDS: HYDROmorphone HCL INJ (*CRX) 1 MG/ML SYR 0.5 MG IV PUSH (04:03)
[2021-06-28 05:33] LABS: Glucose Point of Care 181 mg/dl (65-105)
[2021-06-28 05:57] LABS: Basophils Absolute Auto 0.1 K/mm3 (0.0-0.1); Basophils Percent Auto 1.2 % (0.2-1.2); Eosinophils Absolute Auto 0.3 K/mm3 (0-0.3); Eosinophils Percent Auto 6.5 % (0-4.4); Hematocrit 47.3 % (37.0-47.0); Hemoglobin 15.3 g/dL (12.0-15.0); Immature Granulocyte Absolute 0.02 K/mm3 (0.00-0.031); Immature Granulocyte Percent A 0.5 % (0-0.5); Lymphocytes Absolute Auto 1.21 K/mm3 (0.9-3.2); Lymphocytes Percent Auto 29.1 % (18.3-44.2); Mean Corpuscular HGB Conc 32.3 g/dl (32-36); Mean Corpuscular Volume 89.8 fl (80-100); Mean Platelet Volume 10.1 fl (7.4-10.4); Monocytes Absolute Auto 0.4 K/mm3 (0.1-0.6); Monocytes Percent Auto 9.9 % (2.6-8.5); Neutrophils Absolute Auto 2.2 K/mm3 (1.3-6.7); Neutrophils Percent Auto 52.8 % (45.5-73.1); Platelet Count Result 181 k/mm3 (150-375); Red Blood Count 5.27 M/mm3 (4.2-5.4); Red Cell Distribution Width 15.1 % (11.5-14.5); White Blood Count 4.2 K/mm3 (4.5-10.0)
[2021-06-28 06:00] VITALS: BP 126/88; PULSE 93; RESP 18; TEMP 35.7; O2SAT 100
[2021-06-28 06:08] LABS: Alanine Aminotransferase 117 U/L (4-35); Albumin Level 4.2 g/dL (3.5-5.1); Alkaline Phosphatase 187 U/L (38-126); Anion Gap 5 mmol/L (8-16); Aspartate Amino Transferase 128 U/L (14-36); Bilirubin,Total 0.7 mg/dL (0.2-1.3); Blood Urea Nitrogen 23 mg/dL (7-17); CRP < 0.5 mg/dL (<1.0); Calcium 9.4 mg/dL (8.4-10.2); Carbon Dioxide 29 mmol/L (22-30); Chloride 99 mmol/L (98-107); Estimated CRCL calculation 87 ml/min; Estimated Glomerular Filt Rate > 60; Glucose 199 mg/dL (65-110); Potassium 3.9 mmol/L (3.4-5.0); Sodium 133 mmol/L (137-145)
--- NOTE | 2021-06-28 07:07 | PM.DS ---
DS: Admitting Diagnosis Discharge Date 06/28/21 Admitting Diagnosis Cellulitis DS: Discharge Diagnosis Discharge Diagnosis (1) Cellulitis of lower leg: Code(s): L03.119 - Cellulitis of unspecified part of limb Status: Acute Assessment and Plan: Likely contact dermatitis with possible secondary infection and swelling from recent travel. U/S shows no DVT -She received mipenem and vancomycin while hospitalized and transitioned to doxy at d/c as well as hydrocortisone ointment. -continue to elevate and home oral lasix -follow up with pcp next week (2) Heart failure with reduced ejection fraction: Code(s): I50.20 - Unspecified systolic (congestive) heart failure Status: Acute Assessment and Plan: Euvolemic at this time, no signs of acute heart failure -Echo from 06/06/21 shows EF of 40-45% with a grade 2 diastolic dysfunction -continue home oral lasix, entresto, coreg and isosorbide (3) Obstructive sleep apnea: Code(s): G47.33 - Obstructive sleep apnea (adult) (pediatric) Status: Acute Assessment and Plan: Continue cpap (4) Hyperlipidemia: Code(s): E78.5 - Hyperlipidemia, unspecified Status: Acute Assessment and Plan: chronic, statin therapy held due to elevated liver enzymes (5) Hypertension: Code(s): I10 - Essential (primary) hypertension Status: Acute Assessment and Plan: last bp 126/88 -Continue with Entresto, isosorbide, and Lasix, Coreg (6) Insulin dependent type 2 diabetes mellitus: Code(s): E11.9 - Type 2 diabetes mellitus without complications; Z79.4 - automated weaver (current) use of insulin Status: Acute Assessment and Plan: Last glucose 199 -Continue home regimen (7) Chronic obstructive pulmonary disease: Code(s): J44.9 - Chronic obstructive pulmonary disease, unspecified Status: Acute Assessment and Plan: No acute exacerbation -continue inhalers (8) Paroxysmal atrial fibrillation: Code(s): I48.0 - Paroxysmal atrial fibrillation Status: Acute Assessment and Plan: Appears to be in NSR at this time -Continue with Coreg and Xarelto (9) Hyperlipidemia LDL goal <100: Code(s): E78.5 - Hyperlipidemia, unspecified Status: Acute Assessment and Plan: chronic (10) Transaminitis: Code(s): R74.01 - Elevation of levels of liver transaminase levels Status: Acute Assessment and Plan: Noted in the past last month as well but up a little more than last month. abx related? -last month liver u/s WNL and no hepatitis was detected -recommend switching abx (now to oral) and holding statin therapy and repeating enzymes outpt. Pt informed. -follow up with pcp DS: Summary Hospital Course Hospital Course: Date of service 06/28/2021 Patient is a 66-year-old female with a history of heart failure and diabetes who presented to the emergency room on 06/24/2021 for bilateral lower extremity pain and erythema. vitals in the ER were stable. CBC completely normal. BMP with mild abnormalities such as sodium 136, CO2 33 and glucose 245. Due to the erythema, patient was admitted to the hospitalist service and started on IV antibiotics. She received them for a couple days and the erythema did improve. It sounded like she had a contact dermatitis which worsened as she scratch them and caused a possible secondary bacterial component. hydrocortisone was started the day before discharge which did help with the erythema. Liver enzymes did increase day of discharge the patient has no abdominal pain and is eating and drinking well. She has a history of mild elevation and less than a month ago she had a workup with an ultrasound which was negative and hepatitis is negative. Could be imipenem related as this is a known side effect but does not appear to be fulminant. Will stop this antibiotic and larson
--- NOTE | 2021-06-28 08:20 | PC.NURSE ---
Patient refused her morning medication, would like to get discharge KT. Will take when she gets home per patient.
--- NOTE | 2021-06-28 08:23 | PC.NURSE ---
Patient refused to let nurse do her morning assessment would like to discharge KT.
== END 2021-06-28 08:25 | disposition home or self-care (01) ==
LOC: ANHED 17:40 → ANH3MEDSUR 20:16
PROVIDERS: Nurse Practitioner; Physician Assistant; Admitting Provider Family Medicine; Emergency Provider Emergency Medicine; PCP Internal Medicine; Visit Provider Family Medicine
DX: L03.116 Cellulitis of left lower limb (principal); L03.115 Cellulitis of right lower limb; I89.0 Lymphedema, not elsewhere classified; I11.0 Hypertensive heart disease with heart failure; I50.20 Unspecified systolic (congestive) heart failure; R74.01 Elevation of levels of liver transaminase levels; E11.42 Type 2 diabetes mellitus with diabetic polyneuropathy; E66.01 Morbid (severe) obesity due to excess calories; G47.33 Obstructive sleep apnea (adult) (pediatric); D64.9 Anemia, unspecified; E78.5 Hyperlipidemia, unspecified; F32.9 Major depressive disorder, single episode, unspecified; J44.9 Chronic obstructive pulmonary disease, unspecified; M71.22 Synovial cyst of popliteal space [Baker], left knee; M79.89 Other specified soft tissue disorders; Z79.01 Long term (current) use of anticoagulants; Z68.41 Body mass index [BMI] 40.0-44.9, adult; Z98.84 Bariatric surgery status; Z90.49 Acquired absence of other specified parts of digestive tract; Z79.4 Long term (current) use of insulin; Z90.710 Acquired absence of both cervix and uterus; Z96.651 Presence of right artificial knee joint; Z87.891 Personal history of nicotine dependence
CPT/HCPCS: 36415; 80048; 80053; 80076; 80202; 81001; 82565; 82728; 82948; 83605; 83735; 83880; 84443; 85025; 86140; 87040; 93970; 94640; 96365; 96366; 96367; 96375; 96376; 99285; A9270; G0378; J0743; J1170; J1815; J1885; J1956; J3370

== ENCOUNTER 2021-07-01 10:21 | Inpatient (IN) | payer MEDICARE, SELFPAY ==
[2021-07-01 10:39] VITALS: BP 125/70; PULSE 98; RESP 18; TEMP 37.2; O2SAT 99
[2021-07-01 14:12] VITALS: BP 167/99; PULSE 112; RESP 19; O2SAT 100
[2021-07-01 14:40] LABS: Basophils Absolute Auto 0.1 K/mm3 (0.0-0.1); Basophils Percent Auto 1.2 % (0.2-1.2); Eosinophils Absolute Auto 0.4 K/mm3 (0-0.3); Eosinophils Percent Auto 7.1 % (0-4.4); Hematocrit 42.2 % (37.0-47.0); Hemoglobin 13.8 g/dL (12.0-15.0); Immature Granulocyte Absolute 0.02 K/mm3 (0.00-0.031); Immature Granulocyte Percent A 0.4 % (0-0.5); Lymphocytes Absolute Auto 1.26 K/mm3 (0.9-3.2); Lymphocytes Percent Auto 25.4 % (18.3-44.2); Mean Corpuscular HGB Conc 32.7 g/dl (32-36); Mean Corpuscular Hemoglobin 29.2 pg (26-34); Mean Corpuscular Volume 89.4 fl (80-100); Mean Platelet Volume 10.6 fl (7.4-10.4); Monocytes Absolute Auto 0.5 K/mm3 (0.1-0.6); Monocytes Percent Auto 9.5 % (2.6-8.5); Neutrophils Absolute Auto 2.8 K/mm3 (1.3-6.7); Neutrophils Percent Auto 56.4 % (45.5-73.1); Platelet Count Result 207 k/mm3 (150-375); Red Blood Count 4.72 M/mm3 (4.2-5.4); Red Cell Distribution Width 14.8 % (11.5-14.5)
[2021-07-01 14:49] LABS: Alanine Aminotransferase 110 U/L (4-35); Albumin Level 4.2 g/dL (3.5-5.1); Alkaline Phosphatase 183 U/L (38-126); Anion Gap 4 mmol/L (8-16); Aspartate Amino Transferase 91 U/L (14-36); Bilirubin,Total 0.5 mg/dL (0.2-1.3); Blood Urea Nitrogen 22 mg/dL (7-17); Calcium 9.3 mg/dL (8.4-10.2); Carbon Dioxide 30 mmol/L (22-30); Chloride 99 mmol/L (98-107); Estimated CRCL calculation 76 ml/min; Estimated Glomerular Filt Rate > 60; Glucose 271 mg/dL (65-110); Potassium 4.1 mmol/L (3.4-5.0); Sodium 133 mmol/L (137-145)
--- NOTE | 2021-07-01 15:03 | ED.GENADULT ---
HPI - General Adult General Chief complaint: Extremity Problem,Nontraumatic Stated complaint: cellulitis Time Seen by Provider: 07/01/21 14:07 History of Present Illness HPI narrative: 66-year-old female presented to the emergency department for evaluation of worsening lower extremity cellulitis. Patient had a recent hospital admission for cellulitis and had been on IV antibiotics in the hospital including imipenem and vancomycin. Patient's legs have begun to improve and she was switched to oral doxy. Patient states she has completed the oral doxy. Patient states over the last few days she has had continuing worsening of the cellulitis. Patient describes increased redness and tenderness of the lower extremities that was significantly worse than at time of discharge from the hospital. Related Data Home Medications Medication Instructions Recorded Confirmed albuterol sulfate 90 mcg/actuation 1 inh INHALATION Q4H 01/21/21 06/24/21 aerosol inhaler budesonide-formoterol HFA 160 2 puff INHALATION Q12H 01/21/21 06/24/21 mcg-4.5 mcg/actuation aerosol inhaler cyclobenzaprine 10 mg tablet 10 mg PO TID tablet 01/21/21 06/24/21 insulin degludec 100 unit/mL (3 40 unit SUBCUT QAM ml 04/03/21 06/24/21 mL) subcutaneous pen rivaroxaban 20 mg tablet 20 mg PO DAILY 04/03/21 06/24/21 insulin lispro 100 unit/mL 15 unit SUBCUT TID ml 05/14/21 06/24/21 subcutaneous pen hydrocodone-acetaminophen 1 tablet PO Q8H PRN 06/01/21 06/24/21 isosorbide mononitrate 30 mg PO DAILY 06/01/21 06/24/21 nitroglycerin [Nitrostat] 0.4 mg SUBLINGUAL Q5-15M PRN 06/01/21 06/24/21 pregabalin [Lyrica] 150 mg PO Q12H 06/01/21 06/24/21 ropinirole 3 mg PO BID 06/01/21 06/25/21 carvedilol 25 mg tablet 6.25 mg PO Q12H tablet 06/12/21 06/24/21 furosemide 40 mg tablet 20 mg PO Q12H tablet 06/12/21 06/24/21 Allergies Allergy/AdvReac Type Severity Reaction Status Date / Time latex Allergy Severe HIVES Verified 06/22/21 22:45 Penicillins Allergy Severe HIVES Verified 06/22/21 22:45 diphenhydramine AdvReac Intermediate JERKY/JUMPY, Verified 06/22/21 22:45 GO CRAZY IN MY SKIN cephalexin [From Keflex] AdvReac Diarrhea Verified 06/22/21 22:45 Review of Systems Review of Systems: CONSTITUTIONAL: Denies fever, chills, or sweats. EYES: Denies visual changes, redness, or discharge. GASTROINTESTINAL: Denies abdominal pain, nausea, vomiting, or diarrhea. GENITOURINARY: Denies dysuria or hematuria. SKIN: Worsening redness and swelling of bilateral lower extremities MUSCULOSKELETAL: Denies back pain, joint pain, or myalgia. NEUROLOGIC: Denies headache, numbness, or weakness. PSYCHIATRIC: Denies anxiety or depression. [facility] Past Medical History Medical History Asthma Asthma Bipolar disorder Celiac disease Chronic anticoagulation On Xarelto for paroxysmal atrial fibrillation/flutter. Chronic obstructive pulmonary disease Coronary artery disease Diffuse severe LAD disease with positive IFR and moderate RCA disease noted on cardiac catheterization in 2019. Managed medically. Diabetic peripheral neuropathy Diverticulosis Gastroesophageal reflux disease Heart failure with reduced ejection fraction Follows with [facility] Cardiology and Dr. Mishra. EF was 50% following MitraClip in 2019 though was her most recent ejection fraction was 20 to 25% in November 2020. Hyperlipidemia Hypertension Insulin dependent type 2 diabetes mellitus Hemoglobin A1c was 8.5% on 05/16/2021. Iron deficiency anemia With history of blood transfusion. Kidney stones Morbid obesity Status post gastric bypass surgery in September 2002 with a preoperative weight of 280 lb. Obstructive sleep apnea Paroxysmal atrial fibrillation Restless leg syndrome Rheumatoid arthritis Severe mitral valve regurgitation Status post MitraClip in 2019. Thyroid disease Patient no longer takes thyroid medicine. Transient ischemic attack Urinar
[2021-07-01 15:25] LABS: Lactic Acid Reflex 0.6 mmol/L (0.7-2.1)
[2021-07-01 16:54] VITALS: BP 155/98; PULSE 103; RESP 18; O2SAT 98
[2021-07-01] MEDS: fentaNYL CITRATE INJ (*CRX) 100 MCG/2 ML VIAL 50 MCG IV PUSH (16:54)
[2021-07-01 19:25] VITALS: BP 148/83; PULSE 91; RESP 18; O2SAT 100
[2021-07-01 20:23] VITALS: PULSE 91; RESP 18; O2SAT 100
--- NOTE | 2021-07-01 20:28 | ADMGEN ---
This patient, Charlene Chen, was admitted to Medical Room 254-01. Patient/family oriented to hospital policies and general routines including ID bracelet, bed and alarms, visiting hours, pain management, procedures, bathroom and other care routines, personal items, smoking policy, room service/diet, and visiting hours. Information on how to activate the Rapid Response Team has been discussed. Patient/Family are encouraged to report perceived risks to care and to ask questions if they do not understand what they are told or what they should do.
[2021-07-01 21:43] VITALS: BMI 42.4
[2021-07-01 22:00] VITALS: BP 148/79; PULSE 96; RESP 21; TEMP 36.3; O2SAT 100
--- NOTE | 2021-07-01 23:15 | PM.IMHP ---
H&P: HPI History of Present Illness Date/Time: 07/01/21 23:15 Chief Complaint: Lower extremity redness Narrative: This is a 66-year-old female with past medical history significant for morbid obesity, asthma, bipolar disorder, celiac disease, chronic obstructive pulmonary disease, coronary artery disease, diabetic peripheral neuropathy, gastroesophageal reflux disease, diverticulosis, heart failure, obstructive sleep apnea, insulin dependent diabetes mellitus severe mitral regurge, thyroid disease, rheumatoid arthritis. Patient presents to the emergency room due to bilateral lower extremity erythema rash painful to the touch non remitting patient had prior admission and treatment for this he received a course of imipenem vancomycin discharged home on doxycycline however patient returns today due to no improvement and worsening pain which is burning sensation present in bilateral lower extremity she also has redness, tenderness. Preliminary workup has been essentially nonrevealing. Patient has been admitted for further evaluation, management and treatment Review of Systems Review of Systems: Bilateral lower extremity non remitting rash ,redness ,pain. Constitutional: Constitutional: Denies chills, Denies fatigue, Denies fever(s), Denies malaise, Denies night sweats, Denies poor appetite and Denies weakness Eyes: Eyes: Denies change in vision ENT: Denies dysphagia, Denies nasal congestion, Denies nasal discharge, Denies nasal obstruction, Denies odynophagia and Denies sore throat Cardiovascular: Cardiovascular: Denies chest pain, Denies irregular heart rhythm, Denies claudication, Reports leg edema, Denies lightheadedness, Denies radiating jaw, neck or arm pain, Denies palpitations, Denies dyspnea, Denies dyspnea on exertion and Denies orthopnea Respiratory: Respiratory: Denies cough, Denies excessive phlegm production and Denies dyspnea Gastrointestinal: Gastrointestinal: Denies abdominal pain, Denies dyspepsia, Denies heartburn, Denies nausea and Denies vomiting Genitourinary: Genitourinary: Denies dysuria and Denies flank pain Musculoskeletal: Musculoskeletal: Denies arthralgias, Denies joint swelling and Denies muscle weakness Integumentary/Breasts: Skin/Breast: Reports change in pigmentation, Reports erythema, Reports rash and Reports skin pain Neurologic: Denies focal weakness and Denies Sensory deficit (Neuro) Psychiatric: Psychiatric: Reports no additional psychiatric complaints and Reports as per HPI Endocrine: Endocrine: Denies cold intolerance, Denies heat intolerance, Denies polyphagia, Denies polydipsia, Denies polyuria and Denies palpitations Hematologic/Lymphatic: Hematologic/Lymphatic: Reports no additional hematologic/lymphatic complaints and Reports as per HPI Allergic/Immunologic: Allergic/Immunologic: Reports no additional allergic/immunologic complaints and Reports as per HPI [facility] Past Medical History Medical History Asthma Asthma Bipolar disorder Celiac disease Chronic anticoagulation On Xarelto for paroxysmal atrial fibrillation/flutter. Chronic obstructive pulmonary disease Coronary artery disease Diffuse severe LAD disease with positive IFR and moderate RCA disease noted on cardiac catheterization in 2019. Managed medically. Diabetic peripheral neuropathy Diverticulosis Gastroesophageal reflux disease Heart failure with reduced ejection fraction Follows with [facility] Cardiology and Dr. Mishra. EF was 50% following MitraClip in 2019 though was her most recent ejection fraction was 20 to 25% in November 2020. Hyperlipidemia Hypertension Insulin dependent type 2 diabetes mellitus Hemoglobin A1c was 8.5% on 05/16/2021. Iron deficiency anemia With history of blood transfusion. Kidney stones Morbid obesity Status post gastric bypass surgery in September 2002 with a preoperative weight of 280 lb. Obstructive sleep apnea Paroxysmal atrial fibrillatio
[2021-07-01] MEDS: hydrOXYzine HCL 25 MG TABLET PO (23:37)
[2021-07-02] MEDS: CLINDAMYCIN 600 MG/D5W 50 ML 600 MG/50 ML PIGGYBACK 100 MG IVPB ×3 (00:16→16:52)
[2021-07-02] MEDS: traMADol HCL (*CRX) 50 MG TABLET PO (00:22)
[2021-07-02 03:21] LABS: Glucose Point of Care 208 mg/dl (65-105)
[2021-07-02 06:00] VITALS: BP 132/67; PULSE 83; RESP 20; TEMP 36.2; O2SAT 99
[2021-07-02 07:52] LABS: Glucose Point of Care 217 mg/dl (65-105)
[2021-07-02] MEDS: FERROUS SULFATE 324 MG TABLET PO ×2 (08:01→16:52)
[2021-07-02] MEDS: PREGABALIN (*CRX) 75 MG CAPSULE 150 MG PO ×2 (08:02→20:54)
[2021-07-02] MEDS: SACUBITRIL/VALSARTAN 49-51 MG TABLET 1 TABLET PO ×2 (08:02→20:54)
[2021-07-02] MEDS: FUROSEMIDE 20 MG TABLET PO ×2 (08:02→20:54)
[2021-07-02] MEDS: rOPINIRole HCL 1 MG TABLET 3 MG PO ×2 (08:02→16:52)
[2021-07-02] MEDS: ISOSORBIDE MONONITRATE 30 MG TAB.ER.24H PO (08:02)
[2021-07-02 08:03] VITALS: PULSE 80
[2021-07-02] MEDS: HYDROCORTISONE 1% 30 GM OINTMENT 1 APPLIC TOPICAL ×2 (08:03→20:54)
[2021-07-02] MEDS: CYCLOBENZAPRINE HCL 10 MG TABLET PO ×3 (08:03→16:52)
[2021-07-02] MEDS: carvediloL 6.25 MG TABLET PO ×2 (08:03→20:54)
[2021-07-02] MEDS: TRIAMCINOLONE ACET 0.5% OINT 15 GM TUBE 1 APPLIC TOPICAL ×3 (08:03→17:40)
[2021-07-02] MEDS: INSULIN GLARGINE (*BKC) 100 UNITS/ML 40 UNITS SUB-Q (08:05)
[2021-07-02] MEDS: INSULIN ASPART (*BKC) 100 UNITS/ML 6 UNITS SUB-Q (08:06)
[2021-07-02] MEDS: ATORVASTATIN 40 MG TABLET PO (08:13)
--- NOTE | 2021-07-02 09:00 | P.PNIM_ITS ---
Progress Note: A&P Assessment and Plan (1) Bilateral cellulitis of lower leg: Code(s): L03.116 - Cellulitis of left lower limb; L03.115 - Cellulitis of right lower limb Status: Acute Assessment and Plan: * Possible contact dermatitis * imipenem and vancomycin last admission, 4 days * pain and maculopapular rash in bilateral lower extremity anterior lateral aspect blanches with pressure * Clindamycin 600mg IV Q8hr * Triamcinolone acetonide apply t.i.d. over affected area * Hydroxy seen 25 mg p.o. p.r.n. q.6 * Continue to monitor * Antistreptolysin titer pending * Streptococcus group antigen negative (2) Chronic anticoagulation: Code(s): Z79.01 - [facility] (current) use of anticoagulants Status: Acute Assessment and Plan: * Continue anticoagulation with Xarelto * For history of afib (3) Heart failure with reduced ejection fraction: Code(s): I50.20 - Unspecified systolic (congestive) heart failure Status: Acute Assessment and Plan: * Not in acute exacerbation * appears euvolemic on physical exam * Continue to monitor daily intake and output * Daily weights * Continue home lasix (4) Obstructive sleep apnea: Code(s): G47.33 - Obstructive sleep apnea (adult) (pediatric) Status: Acute Assessment and Plan: * CPAP at nighttime to home settings (5) Insulin dependent type 2 diabetes mellitus: Code(s): E11.9 - Type 2 diabetes mellitus without complications; Z79.4 - [facility] (current) use of insulin Status: Acute Assessment and Plan: * Glucose on labs 271 * Continue home meds, aspart 15 units with meals, Lantus 45 units * Accu-Cheks AC and HS * Insulin sliding scale as needed * Hypoglycemia protocol (6) Chronic obstructive pulmonary disease: Code(s): J44.9 - Chronic obstructive pulmonary disease, unspecified Status: Acute Assessment and Plan: * Continue home meds * Not actively wheezing (7) Obesity: Qualifiers: Body mass index: BMI 45.0-49.9 Obesity classification: adult class 3 (BMI >= 40) Obesity type: due to excess calories Serious obesity comorbidity presence: with serious comorbidity Qualified Code(s): E66.01 - Morbid (severe) obesity due to excess calories; Z68.42 - Body mass index [BMI] 45.0-49.9, adult Code(s): E66.9 - Obesity, unspecified Status: Acute Assessment and Plan: * Lifestyle and diet modification * Carb consistent diet * Could benefit from a GLP2 drug (8) Peripheral neuropathy: Qualifiers: Peripheral neuropathy type: polyneuropathy associated with underlying disease Qualified Code(s): G63 - Polyneuropathy in diseases classified elsewhere Code(s): G62.9 - Polyneuropathy, unspecified Status: Acute Assessment and Plan: * Complaints of burning and pain * Could be from the rash * Gabapentin 100mg TID started (9) Elevated LFTs: Code(s): R79.89 - Other specified abnormal findings of blood chemistry Status: Acute Assessment and Plan: * AST/ALT 91/110, alk Phos 183 * Work up last admission with no indication of the elevation of the enzymes * trend labs Time Spent With Patient Time with patient: 25 - 35 minutes Subjective Date/time seen: 07/02/21 0900 Interval history: Date/Time: 07/01/21 23:1
--- NOTE | 2021-07-02 09:00 | PM.IMPN ---
Progress Note: A&P Assessment and Plan (1) Bilateral cellulitis of lower leg: Code(s): L03.116 - Cellulitis of left lower limb; L03.115 - Cellulitis of right lower limb Status: Acute Assessment and Plan: Possible contact dermatitis imipenem and vancomycin last admission, 4 days pain and maculopapular rash in bilateral lower extremity anterior lateral aspect blanches with pressure Clindamycin 600mg IV Q8hr Triamcinolone acetonide apply t.i.d. over affected area Hydroxy seen 25 mg p.o. p.r.n. q.6 Continue to monitor Antistreptolysin titer pending Streptococcus group antigen negative (2) Chronic anticoagulation: Code(s): Z79.01 - assisted (current) use of anticoagulants Status: Acute Assessment and Plan: Continue anticoagulation with Xarelto For history of afib (3) Heart failure with reduced ejection fraction: Code(s): I50.20 - Unspecified systolic (congestive) heart failure Status: Acute Assessment and Plan: Not in acute exacerbation appears euvolemic on physical exam Continue to monitor daily intake and output Daily weights Continue home lasix (4) Obstructive sleep apnea: Code(s): G47.33 - Obstructive sleep apnea (adult) (pediatric) Status: Acute Assessment and Plan: CPAP at nighttime to home settings (5) Insulin dependent type 2 diabetes mellitus: Code(s): E11.9 - Type 2 diabetes mellitus without complications; Z79.4 - assistant terminal manager (current) use of insulin Status: Acute Assessment and Plan: Glucose on labs 271 Continue home meds, aspart 15 units with meals, Lantus 45 units Accu-Cheks AC and HS Insulin sliding scale as needed Hypoglycemia protocol (6) Chronic obstructive pulmonary disease: Code(s): J44.9 - Chronic obstructive pulmonary disease, unspecified Status: Acute Assessment and Plan: Continue home meds Not actively wheezing (7) Obesity: Qualifiers: Body mass index: BMI 45.0-49.9 Obesity classification: adult class 3 (BMI >= 40) Obesity type: due to excess calories Serious obesity comorbidity presence: with serious comorbidity Qualified Code(s): E66.01 - Morbid (severe) obesity due to excess calories; Z68.42 - Body mass index [BMI] 45.0-49.9, adult Code(s): E66.9 - Obesity, unspecified Status: Acute Assessment and Plan: Lifestyle and diet modification Carb consistent diet Could benefit from a GLP2 drug (8) Peripheral neuropathy: Qualifiers: Peripheral neuropathy type: polyneuropathy associated with underlying disease Qualified Code(s): G63 - Polyneuropathy in diseases classified elsewhere Code(s): G62.9 - Polyneuropathy, unspecified Status: Acute Assessment and Plan: Complaints of burning and pain Could be from the rash Gabapentin 100mg TID started (9) Elevated LFTs: Code(s): R79.89 - Other specified abnormal findings of blood chemistry Status: Acute Assessment and Plan: AST/ALT 91/110, alk Phos 183 Work up last admission with no indication of the elevation of the enzymes trend labs Time Spent With Patient Time with patient: 25 - 35 minutes Subjective Date/time seen: 07/02/21 0900 Interval history: Date/Time: 07/01/21 23:15 Narrative: This is a 66-year-old female with past medical history significant for morbid obesity, asthma, bipolar disorder, celiac disease, chronic obstructive pulmonary disease, coronary artery disease, diabetic peripheral neuropathy, gastroesophageal reflux disease, diverticulosis, heart failure, obstructive sleep apnea, insulin dependent diabetes mellitus severe mitral regurge, thyroid disease, rheumatoid arthritis. Patient presents to the emergency room due to bilateral lower extremity erythema rash painful to the touch non remitting patient had prior admission and keily
[2021-07-02] MEDS: hydrOXYzine HCL 25 MG TABLET PO ×2 (09:57→16:52)
[2021-07-02 11:47] LABS: Glucose Point of Care 240 mg/dl (65-105)
[2021-07-02] MEDS: INSULIN ASPART (*BKC) 100 UNITS/ML 15 UNITS SUB-Q (11:51)
[2021-07-02] MEDS: INSULIN ASPART (*BKC) 100 UNITS/ML SUB-Q (11:51)
[2021-07-02] MEDS: FAMOTIDINE 20 MG TABLET PO ×2 (12:01→20:54)
[2021-07-02] MEDS: GABAPENTIN 100 MG CAPSULE PO ×2 (12:01→16:52)
[2021-07-02 14:00] VITALS: BP 118/61; PULSE 93; RESP 18; TEMP 36.6; O2SAT 99
[2021-07-02 16:41] LABS: Glucose Point of Care 83 mg/dl (65-105)
[2021-07-02] MEDS: RIVAROXABAN 20 MG TABLET PO (16:52)
[2021-07-02 17:10] LABS: Glucose Point of Care 65 mg/dl (65-105)
[2021-07-02 17:10] LABS: Glucose Point of Care 106 mg/dl (65-105)
--- NOTE | 2021-07-02 17:58 | PC.NURSE ---
called / Luly regarding patient's hypoglycemia at dinner time. Ordered not to give 15 units of novolog with dinner and he made changes to sliding scale
[2021-07-02 18:19] LABS: Glucose Point of Care 281 mg/dl (65-105)
[2021-07-02 20:54] VITALS: PULSE 93
[2021-07-02] MEDS: MELATONIN 5 MG TABLET PO (20:54)
[2021-07-02] MEDS: HYDROcodone/acetaminophen (*CRX) 7.5-325 MG TABLET 1 TAB PO (21:05)
[2021-07-02 22:00] VITALS: BP 130/69; PULSE 93; RESP 21; TEMP 36.6; O2SAT 100
[2021-07-02 22:58] LABS: Glucose Point of Care 253 mg/dl (65-105)
[2021-07-03] VITALS (7 sets, daily range): BP systolic 115–124; BP diastolic 60–73; PULSE 80–94; RESP 16–20; TEMP 36.1–36.6; O2SAT 95–99
[2021-07-03] MEDS: CLINDAMYCIN 600 MG/D5W 50 ML 600 MG/50 ML PIGGYBACK 100 MG IVPB ×4 (00:45→23:58)
[2021-07-03 05:57] LABS: Basophils Absolute Auto 0.1 K/mm3 (0.0-0.1); Basophils Percent Auto 1.3 % (0.2-1.2); Eosinophils Absolute Auto 0.3 K/mm3 (0-0.3); Eosinophils Percent Auto 6.5 % (0-4.4); Hematocrit 39.6 % (37.0-47.0); Hemoglobin 13.2 g/dL (12.0-15.0); Immature Granulocyte Absolute 0.02 K/mm3 (0.00-0.031); Immature Granulocyte Percent A 0.5 % (0-0.5); Lymphocytes Absolute Auto 1.45 K/mm3 (0.9-3.2); Lymphocytes Percent Auto 36.3 % (18.3-44.2); Mean Corpuscular HGB Conc 33.3 g/dl (32-36); Mean Corpuscular Hemoglobin 29.1 pg (26-34); Mean Corpuscular Volume 87.4 fl (80-100); Mean Platelet Volume 10.2 fl (7.4-10.4); Monocytes Absolute Auto 0.6 K/mm3 (0.1-0.6); Monocytes Percent Auto 14.8 % (2.6-8.5); Neutrophils Absolute Auto 1.6 K/mm3 (1.3-6.7); Neutrophils Percent Auto 40.6 % (45.5-73.1); Platelet Count Result 204 k/mm3 (150-375); Red Blood Count 4.53 M/mm3 (4.2-5.4); Red Cell Distribution Width 14.6 % (11.5-14.5)
[2021-07-03 06:09] LABS: Alanine Aminotransferase 91 U/L (4-35); Albumin Level 3.9 g/dL (3.5-5.1); Alkaline Phosphatase 167 U/L (38-126); Anion Gap 6 mmol/L (8-16); Aspartate Amino Transferase 63 U/L (14-36); Bilirubin,Total 0.7 mg/dL (0.2-1.3); Blood Urea Nitrogen 18 mg/dL (7-17); Calcium 9.2 mg/dL (8.4-10.2); Carbon Dioxide 29 mmol/L (22-30); Chloride 100 mmol/L (98-107); Estimated CRCL calculation 76 ml/min; Estimated Glomerular Filt Rate > 60; Glucose 249 mg/dL (65-110); Magnesium 2.1 mg/dL (1.6-2.3); Potassium 3.9 mmol/L (3.4-5.0); Sodium 135 mmol/L (137-145)
[2021-07-03 08:09] LABS: Glucose Point of Care 206 mg/dl (65-105)
[2021-07-03] MEDS: INSULIN ASPART (*BKC) 100 UNITS/ML 10 UNITS SUB-Q ×2 (08:50→11:45)
[2021-07-03] MEDS: INSULIN GLARGINE (*BKC) 100 UNITS/ML 40 UNITS SUB-Q (08:50)
[2021-07-03] MEDS: PREGABALIN (*CRX) 75 MG CAPSULE 150 MG PO ×2 (09:00→20:28)
[2021-07-03] MEDS: ATORVASTATIN 40 MG TABLET PO (09:00)
[2021-07-03] MEDS: FERROUS SULFATE 324 MG TABLET PO ×2 (09:00→17:13)
[2021-07-03] MEDS: CYCLOBENZAPRINE HCL 10 MG TABLET PO ×3 (09:00→17:12)
[2021-07-03] MEDS: GABAPENTIN 100 MG CAPSULE PO ×3 (09:00→17:13)
[2021-07-03] MEDS: rOPINIRole HCL 1 MG TABLET 3 MG PO ×2 (09:00→17:13)
[2021-07-03] MEDS: FAMOTIDINE 20 MG TABLET PO ×2 (09:00→20:21)
[2021-07-03] MEDS: SACUBITRIL/VALSARTAN 49-51 MG TABLET 1 TABLET PO ×2 (09:00→20:22)
[2021-07-03] MEDS: FUROSEMIDE 20 MG TABLET PO ×2 (09:00→20:22)
[2021-07-03] MEDS: ISOSORBIDE MONONITRATE 30 MG TAB.ER.24H PO (09:00)
[2021-07-03] MEDS: carvediloL 6.25 MG TABLET PO ×2 (09:00→20:21)
[2021-07-03] MEDS: TRIAMCINOLONE ACET 0.5% OINT 15 GM TUBE 1 APPLIC TOPICAL ×3 (09:01→17:14)
[2021-07-03] MEDS: HYDROCORTISONE 1% 30 GM OINTMENT 1 APPLIC TOPICAL ×2 (09:01→20:34)
[2021-07-03] MEDS: LORATADINE 10 MG TABLET PO (09:01)
[2021-07-03] MEDS: FLUTICASONE/SALMETEROL 115-21 MCG INHALER 1 PUFF 2 PUFF INHALATION ×2 (09:41→20:20)
[2021-07-03 11:38] LABS: Glucose Point of Care 300 mg/dl (65-105)
[2021-07-03] MEDS: INSULIN ASPART (*BKC) 100 UNITS/ML SUB-Q (11:45)
--- NOTE | 2021-07-03 12:30 | PM.IMPN ---
Progress Note: A&P Assessment and Plan (1) Bilateral cellulitis of lower leg: Code(s): L03.116 - Cellulitis of left lower limb; L03.115 - Cellulitis of right lower limb Status: Acute Assessment and Plan: Possible contact dermatitis imipenem and vancomycin last admission, 4 days pain and maculopapular rash in bilateral lower extremity anterior lateral aspect blanches with pressure Clindamycin 600mg IV Q8hr day 2 Triamcinolone acetonide apply t.i.d. over affected area Hydroxy seen 25 mg p.o. p.r.n. q.6 Continue to monitor Antistreptolysin titer pending Streptococcus group antigen negative (2) Chronic anticoagulation: Code(s): Z79.01 - long term care pharmacist (current) use of anticoagulants Status: Acute Assessment and Plan: Continue anticoagulation with Xarelto For history of afib (3) Heart failure with reduced ejection fraction: Code(s): I50.20 - Unspecified systolic (congestive) heart failure Status: Acute Assessment and Plan: Not in acute exacerbation appears euvolemic on physical exam Continue to monitor daily intake and output Daily weights Continue home lasix (4) Obstructive sleep apnea: Code(s): G47.33 - Obstructive sleep apnea (adult) (pediatric) Status: Acute Assessment and Plan: CPAP at nighttime to home settings (5) Insulin dependent type 2 diabetes mellitus: Code(s): E11.9 - Type 2 diabetes mellitus without complications; Z79.4 - long term care pharmacist (current) use of insulin Status: Acute Assessment and Plan: Glucose on labs 249 Continue home meds, aspart 15 units with meals, Lantus 45 units Accu-Cheks AC and HS Insulin sliding scale as needed Hypoglycemia protocol (6) Chronic obstructive pulmonary disease: Code(s): J44.9 - Chronic obstructive pulmonary disease, unspecified Status: Acute Assessment and Plan: Continue home meds Not actively wheezing (7) Obesity: Qualifiers: Obesity type: due to excess calories Obesity classification: adult class 3 (BMI >= 40) Serious obesity comorbidity presence: with serious comorbidity Body mass index: BMI 45.0-49.9 Qualified Code(s): E66.01 - Morbid (severe) obesity due to excess calories; Z68.42 - Body mass index [BMI] 45.0-49.9, adult Code(s): E66.9 - Obesity, unspecified Status: Acute Assessment and Plan: Lifestyle and diet modification Carb consistent diet Could benefit from a GLP2 drug (8) Peripheral neuropathy: Qualifiers: Peripheral neuropathy type: polyneuropathy associated with underlying disease Qualified Code(s): G63 - Polyneuropathy in diseases classified elsewhere Code(s): G62.9 - Polyneuropathy, unspecified Status: Acute Assessment and Plan: Complaints of burning and pain Could be from the rash Gabapentin 100mg TID started (9) Elevated LFTs: Code(s): R79.89 - Other specified abnormal findings of blood chemistry Status: Acute Assessment and Plan: AST/ALT 63/91, alk Phos 167 Work up last admission with no indication of the elevation of the enzymes trend labs Time Spent With Patient Time with patient: 25 - 35 minutes Subjective Date/time seen: 07/03/21 12:30 Interval history: Date/Time: 07/01/21 23:15 Narrative: This is a 66-year-old female with past medical history significant for morbid obesity, asthma, bipolar disorder, celiac disease, chronic obstructive pulmonary disease, coronary artery disease, diabetic peripheral neuropathy, gastroesophageal reflux disease, diverticulosis, heart failure, obstructive sleep apnea, insulin dependent diabetes mellitus severe mitral regurge, thyroid disease, rheumatoid arthritis. Patient presents to the emergency room due to bilateral lower extremity erythema rash painful to the touch non remitting patient had prior admission a
--- NOTE | 2021-07-03 12:30 | P.PNIM_ITS ---
Progress Note: A&P Assessment and Plan (1) Bilateral cellulitis of lower leg: Code(s): L03.116 - Cellulitis of left lower limb; L03.115 - Cellulitis of right lower limb Status: Acute Assessment and Plan: * Possible contact dermatitis * imipenem and vancomycin last admission, 4 days * pain and maculopapular rash in bilateral lower extremity anterior lateral aspect blanches with pressure * Clindamycin 600mg IV Q8hr day 2 * Triamcinolone acetonide apply t.i.d. over affected area * Hydroxy seen 25 mg p.o. p.r.n. q.6 * Continue to monitor * Antistreptolysin titer pending * Streptococcus group antigen negative (2) Chronic anticoagulation: Code(s): Z79.01 - manager terminal (current) use of anticoagulants Status: Acute Assessment and Plan: * Continue anticoagulation with Xarelto * For history of afib (3) Heart failure with reduced ejection fraction: Code(s): I50.20 - Unspecified systolic (congestive) heart failure Status: Acute Assessment and Plan: * Not in acute exacerbation * appears euvolemic on physical exam * Continue to monitor daily intake and output * Daily weights * Continue home lasix (4) Obstructive sleep apnea: Code(s): G47.33 - Obstructive sleep apnea (adult) (pediatric) Status: Acute Assessment and Plan: * CPAP at nighttime to home settings (5) Insulin dependent type 2 diabetes mellitus: Code(s): E11.9 - Type 2 diabetes mellitus without complications; Z79.4 - manager terminal (current) use of insulin Status: Acute Assessment and Plan: * Glucose on labs 249 * Continue home meds, aspart 15 units with meals, Lantus 45 units * Accu-Cheks AC and HS * Insulin sliding scale as needed * Hypoglycemia protocol (6) Chronic obstructive pulmonary disease: Code(s): J44.9 - Chronic obstructive pulmonary disease, unspecified Status: Acute Assessment and Plan: * Continue home meds * Not actively wheezing (7) Obesity: Qualifiers: Obesity type: due to excess calories Obesity classification: adult class 3 (BMI >= 40) Serious obesity comorbidity presence: with serious comorbidity Body mass index: BMI 45.0-49.9 Qualified Code(s): E66.01 - Morbid (severe) obesity due to excess calories; Z68.42 - Body mass index [BMI] 45.0- 49.9, adult Code(s): E66.9 - Obesity, unspecified Status: Acute Assessment and Plan: * Lifestyle and diet modification * Carb consistent diet * Could benefit from a GLP2 drug (8) Peripheral neuropathy: Qualifiers: Peripheral neuropathy type: polyneuropathy associated with underlying disease Qualified Code(s): G63 - Polyneuropathy in diseases classified elsewhere Code(s): G62.9 - Polyneuropathy, unspecified Status: Acute Assessment and Plan: * Complaints of burning and pain * Could be from the rash * Gabapentin 100mg TID started (9) Elevated LFTs: Code(s): R79.89 - Other specified abnormal findings of blood chemistry Status: Acute Assessment and Plan: * AST/ALT 63/91, alk Phos 167 * Work up last admission with no indication of the elevation of the enzymes * trend labs Time Spent With Patient Time with patient: 25 - 35 minutes Subjective Date/time seen: 07/03/21 12:30 Interval history: Date/Time: 06/06
[2021-07-03 16:37] LABS: Glucose Point of Care 172 mg/dl (65-105)
[2021-07-03] MEDS: RIVAROXABAN 20 MG TABLET PO (17:13)
[2021-07-03] MEDS: MELATONIN 5 MG TABLET PO (20:22)
[2021-07-03 20:25] LABS: Glucose Point of Care 249 mg/dl (65-105)
[2021-07-04 06:00] VITALS: BP 115/58; PULSE 81; RESP 18; TEMP 36.5; O2SAT 96
[2021-07-04 06:04] LABS: Basophils Absolute Auto 0.1 K/mm3 (0.0-0.1); Basophils Percent Auto 1.6 % (0.2-1.2); Eosinophils Absolute Auto 0.2 K/mm3 (0-0.3); Eosinophils Percent Auto 4.8 % (0-4.4); Hematocrit 40.7 % (37.0-47.0); Hemoglobin 13.2 g/dL (12.0-15.0); Immature Granulocyte Absolute 0.04 K/mm3 (0.00-0.031); Immature Granulocyte Percent A 0.9 % (0-0.5); Lymphocytes Absolute Auto 1.41 K/mm3 (0.9-3.2); Lymphocytes Percent Auto 32.3 % (18.3-44.2); Mean Corpuscular HGB Conc 32.4 g/dl (32-36); Mean Corpuscular Hemoglobin 28.8 pg (26-34); Mean Corpuscular Volume 88.9 fl (80-100); Mean Platelet Volume 10.5 fl (7.4-10.4); Monocytes Absolute Auto 0.6 K/mm3 (0.1-0.6); Neutrophils Percent Auto 46.4 % (45.5-73.1); Platelet Count Result 197 k/mm3 (150-375); Red Blood Count 4.58 M/mm3 (4.2-5.4); Red Cell Distribution Width 15.1 % (11.5-14.5); White Blood Count 4.4 K/mm3 (4.5-10.0)
[2021-07-04 06:22] LABS: Alanine Aminotransferase 89 U/L (4-35); Albumin Level 4.1 g/dL (3.5-5.1); Alkaline Phosphatase 175 U/L (38-126); Anion Gap 10 mmol/L (8-16); Aspartate Amino Transferase 73 U/L (14-36); Bilirubin,Total 0.7 mg/dL (0.2-1.3); Blood Urea Nitrogen 17 mg/dL (7-17); Calcium 9.6 mg/dL (8.4-10.2); Carbon Dioxide 26 mmol/L (22-30); Chloride 101 mmol/L (98-107); Estimated CRCL calculation 76 ml/min; Estimated Glomerular Filt Rate > 60; Glucose 202 mg/dL (65-110); Magnesium 2.2 mg/dL (1.6-2.3); Potassium 4.2 mmol/L (3.4-5.0); Sodium 137 mmol/L (137-145)
[2021-07-04 07:35] LABS: Glucose Point of Care 179 mg/dl (65-105)
[2021-07-04] MEDS: CLINDAMYCIN 600 MG/D5W 50 ML 600 MG/50 ML PIGGYBACK 100 MG IVPB ×2 (08:20→16:06)
[2021-07-04 08:22] VITALS: PULSE 81
[2021-07-04] MEDS: FUROSEMIDE 20 MG TABLET PO ×2 (08:22→20:29)
[2021-07-04] MEDS: FAMOTIDINE 20 MG TABLET PO ×2 (08:22→20:30)
[2021-07-04] MEDS: GABAPENTIN 100 MG CAPSULE PO ×3 (08:22→16:53)
[2021-07-04] MEDS: LORATADINE 10 MG TABLET PO (08:22)
[2021-07-04] MEDS: ISOSORBIDE MONONITRATE 30 MG TAB.ER.24H PO (08:22)
[2021-07-04] MEDS: carvediloL 6.25 MG TABLET PO ×2 (08:22→20:30)
[2021-07-04] MEDS: FERROUS SULFATE 324 MG TABLET PO ×2 (08:22→16:54)
[2021-07-04] MEDS: CYCLOBENZAPRINE HCL 10 MG TABLET PO ×3 (08:23→16:54)
[2021-07-04] MEDS: TRIAMCINOLONE ACET 0.5% OINT 15 GM TUBE 1 APPLIC TOPICAL ×3 (08:23→16:54)
[2021-07-04] MEDS: ATORVASTATIN 40 MG TABLET PO (08:23)
[2021-07-04] MEDS: SACUBITRIL/VALSARTAN 49-51 MG TABLET 1 TABLET PO ×2 (08:23→20:29)
[2021-07-04] MEDS: rOPINIRole HCL 1 MG TABLET 3 MG PO ×2 (08:23→20:30)
[2021-07-04] MEDS: HYDROCORTISONE 1% 30 GM OINTMENT 1 APPLIC TOPICAL ×2 (08:24→20:31)
[2021-07-04] MEDS: INSULIN ASPART (*BKC) 100 UNITS/ML 10 UNITS SUB-Q ×3 (08:26→16:51)
[2021-07-04] MEDS: INSULIN GLARGINE (*BKC) 100 UNITS/ML 40 UNITS SUB-Q (08:27)
[2021-07-04] MEDS: PREGABALIN (*CRX) 75 MG CAPSULE 150 MG PO ×2 (08:32→20:30)
[2021-07-04] MEDS: FLUTICASONE/SALMETEROL 115-21 MCG INHALER 1 PUFF 2 PUFF INHALATION ×2 (09:48→21:01)
[2021-07-04 11:49] LABS: Glucose Point of Care 183 mg/dl (65-105)
--- NOTE | 2021-07-04 13:00 | PM.IMPN ---
Progress Note: A&P Assessment and Plan (1) Bilateral cellulitis of lower leg: Code(s): L03.116 - Cellulitis of left lower limb; L03.115 - Cellulitis of right lower limb Status: Acute Assessment and Plan: Possible contact dermatitis imipenem and vancomycin last admission, 4 days pain and maculopapular rash in bilateral lower extremity anterior lateral aspect blanches with pressure Clindamycin 600mg IV Q8hr day 3 Triamcinolone acetonide apply t.i.d. over affected area Hydrocortisone 25 mg p.o. p.r.n. 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 Status: Acute Assessment and Plan: Continue anticoagulation with Xarelto For history of afib (3) Heart failure with reduced ejection fraction: Code(s): I50.20 - Unspecified systolic (congestive) heart failure Status: Acute Assessment and Plan: Not in acute exacerbation appears euvolemic on physical exam Continue to monitor daily intake and output Daily weights Continue home lasix (4) Obstructive sleep apnea: Code(s): G47.33 - Obstructive sleep apnea (adult) (pediatric) Status: Acute Assessment and Plan: CPAP at nighttime to home settings (5) Insulin dependent type 2 diabetes mellitus: Code(s): E11.9 - Type 2 diabetes mellitus without complications; 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 Status: Acute Assessment and Plan: Glucose on labs 202 Continue home meds, aspart 15 units with meals, Lantus 45 units Accu-Cheks AC and HS Insulin sliding scale as needed Hypoglycemia protocol (6) Chronic obstructive pulmonary disease: Code(s): J44.9 - Chronic obstructive pulmonary disease, unspecified Status: Acute Assessment and Plan: Continue home meds Not actively wheezing (7) Obesity: Qualifiers: Body mass index: BMI 45.0-49.9 Obesity classification: adult class 3 (BMI >= 40) Obesity type: due to excess calories Serious obesity comorbidity presence: with serious comorbidity Qualified Code(s): E66.01 - Morbid (severe) obesity due to excess calories; Z68.42 - Body mass index [BMI] 45.0-49.9, adult Code(s): E66.9 - Obesity, unspecified Status: Acute Assessment and Plan: Lifestyle and diet modification Carb consistent diet Could benefit from a GLP2 drug (8) Peripheral neuropathy: Qualifiers: Peripheral neuropathy type: polyneuropathy associated with underlying disease Qualified Code(s): G63 - Polyneuropathy in diseases classified elsewhere Code(s): G62.9 - Polyneuropathy, unspecified Status: Acute Assessment and Plan: Complaints of burning and pain Could be from the rash Gabapentin 100mg TID started (9) Elevated LFTs: Code(s): R79.89 - Other specified abnormal findings of blood chemistry Status: Acute Assessment and Plan: AST/ALT 73/89, alk Phos 175 Work up last admission with no indication of the elevation of the enzymes trend labs (10) Urinary dysfunction: Code(s): R39.198 - Other difficulties with micturition Status: Acute Assessment and Plan: pain and burning with urination UA does not have any indication of possible UTI Started fluconazole Time Spent With Patient Time with patient: 25 - 35 minutes Subjective Date/time seen: 07/04/21 1300 Interval history: Date/Time: 07/01/21 23:15 Narrative: This is a 66-year-old female with past medical history significant for morbid obesity, asthma, bipolar disorder, celiac disease, chronic obstructive pulmonary disease, coronary artery disease, diabetic peripheral neuropathy, gastroesophageal reflux disease, diverticulosis, heart failure, obstructive sleep apnea,
--- NOTE | 2021-07-04 13:00 | P.PNIM_ITS ---
Progress Note: A&P Assessment and Plan (1) Bilateral cellulitis of lower leg: Code(s): L03.116 - Cellulitis of left lower limb; L03.115 - Cellulitis of right lower limb Status: Acute Assessment and Plan: * Possible contact dermatitis * imipenem and vancomycin last admission, 4 days * pain and maculopapular rash in bilateral lower extremity anterior lateral aspect blanches with pressure * Clindamycin 600mg IV Q8hr day 3 * Triamcinolone acetonide apply t.i.d. over affected area * Hydrocortisone 25 mg p.o. p.r.n. q.6 * Continue to monitor * Antistreptolysin titer pending * Streptococcus group antigen negative (2) Chronic anticoagulation: Code(s): Z79.01 - retirement (current) use of anticoagulants Status: Acute Assessment and Plan: * Continue anticoagulation with Xarelto * For history of afib (3) Heart failure with reduced ejection fraction: Code(s): I50.20 - Unspecified systolic (congestive) heart failure Status: Acute Assessment and Plan: * Not in acute exacerbation * appears euvolemic on physical exam * Continue to monitor daily intake and output * Daily weights * Continue home lasix (4) Obstructive sleep apnea: Code(s): G47.33 - Obstructive sleep apnea (adult) (pediatric) Status: Acute Assessment and Plan: * CPAP at nighttime to home settings (5) Insulin dependent type 2 diabetes mellitus: Code(s): E11.9 - Type 2 diabetes mellitus without complications; Z79.4 - retirement (current) use of insulin Status: Acute Assessment and Plan: * Glucose on labs 202 * Continue home meds, aspart 15 units with meals, Lantus 45 units * Accu-Cheks AC and HS * Insulin sliding scale as needed * Hypoglycemia protocol (6) Chronic obstructive pulmonary disease: Code(s): J44.9 - Chronic obstructive pulmonary disease, unspecified Status: Acute Assessment and Plan: * Continue home meds * Not actively wheezing (7) Obesity: Qualifiers: Body mass index: BMI 45.0-49.9 Obesity classification: adult class 3 (BMI >= 40) Obesity type: due to excess calories Serious obesity comorbidity presence: with serious comorbidity Qualified Code(s): E66.01 - Morbid (severe) obesity due to excess calories; Z68.42 - Body mass index [BMI] 45.0-49.9, adult Code(s): E66.9 - Obesity, unspecified Status: Acute Assessment and Plan: * Lifestyle and diet modification * Carb consistent diet * Could benefit from a GLP2 drug (8) Peripheral neuropathy: Qualifiers: Peripheral neuropathy type: polyneuropathy associated with underlying disease Qualified Code(s): G63 - Polyneuropathy in diseases classified elsewhere Code(s): G62.9 - Polyneuropathy, unspecified Status: Acute Assessment and Plan: * Complaints of burning and pain * Could be from the rash * Gabapentin 100mg TID started (9) Elevated LFTs: Code(s): R79.89 - Other specified abnormal findings of blood chemistry Status: Acute Assessment and Plan: * AST/ALT 73/89, alk Phos 175 * Work up last admission with no indication of the elevation of the enzymes * trend labs (10) Urinary dysfunction: Code(s): R39.198 - Other difficulties with micturition Status: Acute Assessment and Plan: * pain a
[2021-07-04 13:05] LABS: Anti Streptolysin O Screen <50 IU/mL (<200)
[2021-07-04 14:00] VITALS: BP 106/71; PULSE 102; RESP 20; TEMP 36.6; O2SAT 99
[2021-07-04 16:44] LABS: Glucose Point of Care 133 mg/dl (65-105)
[2021-07-04] MEDS: RIVAROXABAN 20 MG TABLET PO (16:54)
[2021-07-04 17:29] LABS: Add Urine Microscopic? YES; Appearance Urine Clear (Clear); Bilirubin Urine Negative (Negative); Blood Urine Negative (Negative); Color Urine Yellow (Yellow); Glucose Urine UA 2+ mg/dL (Negative); Ketones Urine Negative (Negative); Leukocyte Esterase Ur Negative LEU/UL (Negative); Nitrate Urine Negative (Negative); Protein Urine Negative (Negative); RBC Urine 0-2 /hpf (0-2); Specific Grav Ur 1.017 (1.001-1.035); Squamous Epithelial Cell Urine Many /hpf (Few); Urobilinogen Urine Negative mg/dL (<2.0); WBC Urine 0-3 /hpf
[2021-07-04] MEDS: MELATONIN 5 MG TABLET PO (20:29)
[2021-07-04 20:30] VITALS: PULSE 94
[2021-07-04] MEDS: FLUCONAZOLE 100 MG TABLET 800 MG PO (20:30)
[2021-07-04 21:18] LABS: Glucose Point of Care 189 mg/dl (65-105)
[2021-07-04 22:00] VITALS: BP 137/83; PULSE 94; RESP 18; TEMP 36.1; O2SAT 96
--- NOTE | 2021-07-05 | ECG_ITS ---
Measurements Intervals [place] Rate: 79 P: 65 [place]: 211 QRS: 141 QRSD: 190 T: 19 QT: 462 QTc: 532 Interpretive Statements SINUS RHYTHM WITH FIRST DEGREE AV BLOCK POSSIBLE LEFT ATRIAL ENLARGEMENT RIGHT BUNDLE BRANCH BLOCK LEFT POSTERIOR FASCICULAR BLOCK BASELINE ARTIFACT- I, II, III, AVR, AVL, AVF, V2-V3, V6 ABNORMAL ECG Electronically Signed On 07-05-2021 6:53:38 [employer] by Narinder Roche D.O.
[2021-07-05] MEDS: CLINDAMYCIN 600 MG/D5W 50 ML 600 MG/50 ML PIGGYBACK 100 MG IVPB (00:07)
[2021-07-05 05:16] LABS: Basophils Absolute Auto 0.1 K/mm3 (0.0-0.1); Basophils Percent Auto 1.2 % (0.2-1.2); Eosinophils Absolute Auto 0.1 K/mm3 (0-0.3); Eosinophils Percent Auto 2.3 % (0-4.4); Hematocrit 39.1 % (37.0-47.0); Hemoglobin 12.8 g/dL (12.0-15.0); Immature Granulocyte Absolute 0.04 K/mm3 (0.00-0.031); Immature Granulocyte Percent A 0.7 % (0-0.5); Lymphocytes Absolute Auto 1.48 K/mm3 (0.9-3.2); Lymphocytes Percent Auto 26.2 % (18.3-44.2); Mean Corpuscular HGB Conc 32.7 g/dl (32-36); Mean Corpuscular Hemoglobin 29.6 pg (26-34); Mean Corpuscular Volume 90.3 fl (80-100); Mean Platelet Volume 10.8 fl (7.4-10.4); Monocytes Absolute Auto 0.7 K/mm3 (0.1-0.6); Monocytes Percent Auto 11.9 % (2.6-8.5); Neutrophils Absolute Auto 3.3 K/mm3 (1.3-6.7); Neutrophils Percent Auto 57.7 % (45.5-73.1); Platelet Count Result 180 k/mm3 (150-375); Red Blood Count 4.33 M/mm3 (4.2-5.4); Red Cell Distribution Width 14.9 % (11.5-14.5); White Blood Count 5.7 K/mm3 (4.5-10.0)
[2021-07-05 05:30] LABS: Alanine Aminotransferase 81 U/L (4-35); Albumin Level 3.8 g/dL (3.5-5.1); Alkaline Phosphatase 152 U/L (38-126); Anion Gap 7 mmol/L (8-16); Aspartate Amino Transferase 60 U/L (14-36); Bilirubin,Total 0.7 mg/dL (0.2-1.3); Blood Urea Nitrogen 22 mg/dL (7-17); Calcium 9.2 mg/dL (8.4-10.2); Carbon Dioxide 28 mmol/L (22-30); Chloride 101 mmol/L (98-107); Estimated CRCL calculation 69 ml/min; Estimated Glomerular Filt Rate > 60; Glucose 206 mg/dL (65-110); Magnesium 2.2 mg/dL (1.6-2.3); Potassium 4.2 mmol/L (3.4-5.0); Sodium 136 mmol/L (137-145)
[2021-07-05 06:00] VITALS: BP 127/76; PULSE 76; RESP 21; TEMP 36.1; O2SAT 100
[2021-07-05] MEDS: CLINDAMYCIN HCL 150 MG CAP 450 MG PO ×2 (06:32→15:02)
[2021-07-05 07:51] LABS: Glucose Point of Care 181 mg/dl (65-105)
[2021-07-05 08:09] VITALS: PULSE 76
[2021-07-05] MEDS: ISOSORBIDE MONONITRATE 30 MG TAB.ER.24H PO (08:09)
[2021-07-05] MEDS: CYCLOBENZAPRINE HCL 10 MG TABLET PO ×2 (08:09→11:56)
[2021-07-05] MEDS: carvediloL 6.25 MG TABLET PO (08:09)
[2021-07-05] MEDS: PREGABALIN (*CRX) 75 MG CAPSULE 150 MG PO (08:09)
[2021-07-05] MEDS: FERROUS SULFATE 324 MG TABLET PO (08:09)
[2021-07-05] MEDS: FUROSEMIDE 20 MG TABLET PO (08:09)
[2021-07-05] MEDS: GABAPENTIN 100 MG CAPSULE PO ×2 (08:09→11:56)
[2021-07-05] MEDS: SACUBITRIL/VALSARTAN 49-51 MG TABLET 1 TABLET PO (08:10)
[2021-07-05] MEDS: FAMOTIDINE 20 MG TABLET PO (08:10)
[2021-07-05] MEDS: LORATADINE 10 MG TABLET PO (08:10)
[2021-07-05] MEDS: rOPINIRole HCL 1 MG TABLET 3 MG PO (08:10)
[2021-07-05] MEDS: ATORVASTATIN 40 MG TABLET PO (08:10)
[2021-07-05] MEDS: TRIAMCINOLONE ACET 0.5% OINT 15 GM TUBE 1 APPLIC TOPICAL ×2 (08:11→11:56)
[2021-07-05] MEDS: HYDROCORTISONE 1% 30 GM OINTMENT 1 APPLIC TOPICAL (08:11)
[2021-07-05] MEDS: FLUCONAZOLE 100 MG TABLET 400 MG PO (08:11)
[2021-07-05] MEDS: INSULIN GLARGINE (*BKC) 100 UNITS/ML 40 UNITS SUB-Q (08:12)
[2021-07-05] MEDS: FLUTICASONE/SALMETEROL 115-21 MCG INHALER 1 PUFF 2 PUFF INHALATION (08:59)
[2021-07-05 11:42] LABS: Glucose Point of Care 246 mg/dl (65-105)
[2021-07-05] MEDS: INSULIN ASPART (*BKC) 100 UNITS/ML 10 UNITS SUB-Q (11:57)
[2021-07-05] MEDS: INSULIN ASPART (*BKC) 100 UNITS/ML SUB-Q (11:57)
[2021-07-05 13:57] VITALS: BP 126/97; PULSE 90; RESP 20; TEMP 36.2; O2SAT 96
--- NOTE | 2021-07-05 14:42 | PM.DS ---
DS: Admitting Diagnosis Discharge Date Date of Service 07/05/21 1440 Admitting Diagnosis Cellulitis of bilateral lower leg DS: Discharge Diagnosis Discharge Diagnosis (1) Bilateral cellulitis of lower leg: Code(s): L03.116 - Cellulitis of left lower limb; L03.115 - Cellulitis of right lower limb Status: Acute Assessment and Plan: Possible contact dermatitis imipenem and vancomycin last admission, 4 days pain and maculopapular rash in bilateral lower extremity anterior lateral aspect blanches with pressure Clindamycin 600mg IV Q8hr day 3, clindamycin 450mg PO Q8hr Triamcinolone acetonide apply t.i.d. over affected area Hydrocortisone 25 mg p.o. p.r.n. q.6 Continue to monitor Antistreptolysin titer pending Streptococcus group antigen negative (2) Chronic anticoagulation: Code(s): Z79.01 - [facility] (current) use of anticoagulants Status: Acute Assessment and Plan: Continue anticoagulation with Xarelto For history of afib (3) Heart failure with reduced ejection fraction: Code(s): I50.20 - Unspecified systolic (congestive) heart failure Status: Acute Assessment and Plan: Not in acute exacerbation appears euvolemic on physical exam Continue to monitor daily intake and output Daily weights Continue home lasix (4) Obstructive sleep apnea: Code(s): G47.33 - Obstructive sleep apnea (adult) (pediatric) Status: Acute Assessment and Plan: CPAP at nighttime to home settings (5) Insulin dependent type 2 diabetes mellitus: Code(s): E11.9 - Type 2 diabetes mellitus without complications; Z79.4 - [facility] (current) use of insulin Status: Acute Assessment and Plan: Glucose on labs 206 Continue home meds, aspart 15 units with meals, Lantus 45 units Accu-Cheks AC and HS Insulin sliding scale as needed Hypoglycemia protocol (6) Chronic obstructive pulmonary disease: Code(s): J44.9 - Chronic obstructive pulmonary disease, unspecified Status: Acute Assessment and Plan: Continue home meds Not actively wheezing (7) Obesity: Qualifiers: Body mass index: BMI 45.0-49.9 Obesity classification: adult class 3 (BMI >= 40) Obesity type: due to excess calories Serious obesity comorbidity presence: with serious comorbidity Qualified Code(s): E66.01 - Morbid (severe) obesity due to excess calories; Z68.42 - Body mass index [BMI] 45.0-49.9, adult Code(s): E66.9 - Obesity, unspecified Status: Acute Assessment and Plan: Lifestyle and diet modification Carb consistent diet Could benefit from a GLP2 drug (8) Peripheral neuropathy: Qualifiers: Peripheral neuropathy type: polyneuropathy associated with underlying disease Qualified Code(s): G63 - Polyneuropathy in diseases classified elsewhere Code(s): G62.9 - Polyneuropathy, unspecified Status: Acute Assessment and Plan: Complaints of burning and pain Could be from the rash Gabapentin 100mg TID started (9) Elevated LFTs: Code(s): R79.89 - Other specified abnormal findings of blood chemistry Status: Acute Assessment and Plan: AST/ALT 60/81, alk Phos 152 Work up last admission with no indication of the elevation of the enzymes trend labs (10) Urinary dysfunction: Code(s): R39.198 - Other difficulties with micturition Status: Acute Assessment and Plan: pain and burning with urination UA does not have any indication of possible UTI Started fluconazole DS: Summary Hospital Course Hospital Course: Patient is a 66 year old female with a history of diabetes, cellulitis, and heart failure who presented to the ED for evaluation of bilateral lower extremity redness, pain, and swelling with small papules. Since admission patient has been treated with IV clindamycin.
--- NOTE | 2021-07-05 14:42 | P.DS_ITS ---
DS: Admitting Diagnosis Discharge Date Date of Service 07/05/21 1440 Admitting Diagnosis Cellulitis of bilateral lower leg DS: Discharge Diagnosis Discharge Diagnosis (1) Bilateral cellulitis of lower leg: Code(s): L03.116 - Cellulitis of left lower limb; L03.115 - Cellulitis of right lower limb Status: Acute Assessment and Plan: * Possible contact dermatitis * imipenem and vancomycin last admission, 4 days * pain and maculopapular rash in bilateral lower extremity anterior lateral aspect blanches with pressure * Clindamycin 600mg IV Q8hr day 3, clindamycin 450mg PO Q8hr * Triamcinolone acetonide apply t.i.d. over affected area * Hydrocortisone 25 mg p.o. p.r.n. 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 Status: Acute Assessment and Plan: * Continue anticoagulation with Xarelto * For history of afib (3) Heart failure with reduced ejection fraction: Code(s): I50.20 - Unspecified systolic (congestive) heart failure Status: Acute Assessment and Plan: * Not in acute exacerbation * appears euvolemic on physical exam * Continue to monitor daily intake and output * Daily weights * Continue home lasix (4) Obstructive sleep apnea: Code(s): G47.33 - Obstructive sleep apnea (adult) (pediatric) Status: Acute Assessment and Plan: * CPAP at nighttime to home settings (5) Insulin dependent type 2 diabetes mellitus: Code(s): E11.9 - Type 2 diabetes mellitus without complications; Z79.4 - 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 Status: Acute Assessment and Plan: * Glucose on labs 206 * Continue home meds, aspart 15 units with meals, Lantus 45 units * Accu-Cheks AC and HS * Insulin sliding scale as needed * Hypoglycemia protocol (6) Chronic obstructive pulmonary disease: Code(s): J44.9 - Chronic obstructive pulmonary disease, unspecified Status: Acute Assessment and Plan: * Continue home meds * Not actively wheezing (7) Obesity: Qualifiers: Body mass index: BMI 45.0-49.9 Obesity classification: adult class 3 (BMI >= 40) Obesity type: due to excess calories Serious obesity comorbidity presence: with serious comorbidity Qualified Code(s): E66.01 - Morbid (severe) obesity due to excess calories; Z68.42 - Body mass index [BMI] 45.0-49.9, adult Code(s): E66.9 - Obesity, unspecified Status: Acute Assessment and Plan: * Lifestyle and diet modification * Carb consistent diet * Could benefit from a GLP2 drug (8) Peripheral neuropathy: Qualifiers: Peripheral neuropathy type: polyneuropathy associated with underlying disease Qualified Code(s): G63 - Polyneuropathy in diseases classified else where Code(s): G62.9 - Polyneuropathy, unspecified Status: Acute Assessment and Plan: * Complaints of burning and pain * Could be from the rash * Gabapentin 100mg TID started (9) Elevated LFTs: Code(s): R79.89 - Other specified abnormal findings of blood chemistry Status: Acute Assessment and Plan: * AST/ALT 60/81, alk Phos 152 * Work up last admission with no indication of the elevation of the enzymes * trend labs
[2021-07-05 16:29] LABS: Glucose Point of Care 274 mg/dl (65-105)
== END 2021-07-05 16:45 | disposition home or self-care (01) | DRG 603 ==
LOC: ANHED 16:45 → ANH2MED 19:04
PROVIDERS: Internal Medicine; Admitting Provider Family Medicine; Emergency Provider Emergency Medicine; PCP Internal Medicine; Visit Provider Nurse Practitioner
DX: L03.116 Cellulitis of left lower limb (principal); Z68.41 Body mass index [BMI] 40.0-44.9, adult; I50.22 Chronic systolic (congestive) heart failure; E66.01 Morbid (severe) obesity due to excess calories; L03.115 Cellulitis of right lower limb; I11.0 Hypertensive heart disease with heart failure; R39.198 Other difficulties with micturition; G47.33 Obstructive sleep apnea (adult) (pediatric); E11.9 Type 2 diabetes mellitus without complications; J44.9 Chronic obstructive pulmonary disease, unspecified; I25.10 Atherosclerotic heart disease of native coronary artery without angina pectoris; E11.42 Type 2 diabetes mellitus with diabetic polyneuropathy; K21.9 Gastro-esophageal reflux disease without esophagitis; E78.5 Hyperlipidemia, unspecified; I48.0 Paroxysmal atrial fibrillation; F31.9 Bipolar disorder, unspecified; K90.0 Celiac disease; K57.90 Diverticulosis of intestine, part unspecified, without perforation or abscess without bleeding; I34.0 Nonrheumatic mitral (valve) insufficiency; M06.9 Rheumatoid arthritis, unspecified; R79.89 Other specified abnormal findings of blood chemistry; Z23 Encounter for immunization; Z79.01 Long term (current) use of anticoagulants; Z79.4 Long term (current) use of insulin; Z86.73 Personal history of transient ischemic attack (TIA), and cerebral infarction without residual deficits; Z98.84 Bariatric surgery status
CPT/HCPCS: 36415; 80053; 81001; 82948; 83605; 83735; 85025; 86060; 87040; 87081; 87880; 90471; 90653; 93005; 94640; 96365; 96366; 96367; 96375; 97162; 97166; 97535; 99285; A9270; G0008; G0378; J0131; J0743; J1815; J3010; J3370

== ENCOUNTER 2021-08-02 11:02 | Inpatient (IN) | payer MEDICARE, SELFPAY ==
--- NOTE | ~2021-08-02 | XR_ITS ---
EXAMINATION: XR chest 1V portable INDICATION: Shortness of breath TECHNIQUE: Portable AP chest at 1021 hours COMPARISON: 06/05/2021 FINDINGS: There is a focal airspace opacity of the right lung base. No pleural effusion or pneumothor ax is identified. The cardiomediastinal silhouette is stable. A metallic implant overlies the heart. IMPRESSION: 1. Right basilar airspace opacity, consistent with atelectasis versus pneumonia. Reviewed, dictated and finalized at location B. E CUT OFF SAW OPERATOR IMPRESSION: 1. Right basilar airspace opacity, consistent with atelectasis versus pneumonia .
--- NOTE | ~2021-08-02 | US_ITS ---
EXAMINATION: US venous doppler [facility] DATE: 08/03/2021 10:35 INDICATION: Lower limb swelling and erythema. TECHNIQUE: Grayscale ultrasound images without and with compression and Doppler ultrasound images of the bilateral lower extremity veins were obtained. COMPARISON: Ultrasound 06/26/2021 FINDINGS: The visualized portions of right common femoral vein, profunda (deep) femoral vein, femoral vein, pop liteal vein, peroneal veins, posterior tibial veins, and greater saphenous vein outflow are patent. The visualized portions of left common femoral vein, profunda femoral vein, femoral vein, popliteal v ein, peroneal veins, posterior tibial veins, and greater saphenous vein outflow are patent. There is a small left-sided Garcia's cyst. IMPRESSION: 1. No deep venous thrombosis. 2. Small left-sided Garcia's cyst. Reviewed, dictated and finalized at location A. CLEANING ATTENDANT
[2021-08-02 11:29] VITALS: BP 123/85; PULSE 96; RESP 18; TEMP 36.8; O2SAT 100
[2021-08-02 13:23] LABS: Basophils Absolute Auto 0.1 K/mm3 (0.0-0.1); Basophils Percent Auto 1.4 % (0.2-1.2); Eosinophils Absolute Auto 0.2 K/mm3 (0-0.3); Eosinophils Percent Auto 2.9 % (0-4.4); Hematocrit 42.3 % (37.0-47.0); Hemoglobin 14.2 g/dL (12.0-15.0); Immature Granulocyte Absolute 0.02 K/mm3 (0.00-0.031); Immature Granulocyte Percent A 0.4 % (0-0.5); Lymphocytes Absolute Auto 1.61 K/mm3 (0.9-3.2); Lymphocytes Percent Auto 31.3 % (18.3-44.2); Mean Corpuscular HGB Conc 33.6 g/dl (32-36); Mean Corpuscular Hemoglobin 29.8 pg (26-34); Mean Corpuscular Volume 88.9 fl (80-100); Mean Platelet Volume 9.9 fl (7.4-10.4); Monocytes Absolute Auto 0.5 K/mm3 (0.1-0.6); Monocytes Percent Auto 9.9 % (2.6-8.5); Neutrophils Absolute Auto 2.8 K/mm3 (1.3-6.7); Neutrophils Percent Auto 54.1 % (45.5-73.1); Platelet Count Result 184 k/mm3 (150-375); Red Blood Count 4.76 M/mm3 (4.2-5.4); Red Cell Distribution Width 13.6 % (11.5-14.5); White Blood Count 5.1 K/mm3 (4.5-10.0)
[2021-08-02 13:34] LABS: Prothrombin Time 12.6 Seconds (11.1-14.7)
--- NOTE | 2021-08-02 13:34 | ED.EXTPRO ---
HPI - Extremity Problem General Chief complaint: Extremity Problem,Nontraumatic Stated complaint: cellulitis both legs Time Seen by Provider: 08/02/21 13:06 Source: patient Mode of arrival: EMS Limitations: no limitations History of Present Illness HPI Narrative: This is a 66-year-old female that presents to the emergency department for bilateral lower extremity redness and pain ongoing over the last week. Reports worsening last night which prompted her to be seen today. She finished her oral antibiotic (Clindamycin) from recent hospitalization for cellulitis about a week ago. Denies fever or shortness of breath. Related Data Home Medications Medication Instructions Recorded Confirmed albuterol sulfate 90 mcg/actuation 1 inh INHALATION Q4H 01/21/21 07/24/21 aerosol inhaler budesonide-formoterol HFA 160 2 puff INHALATION Q12H 01/21/21 07/24/21 mcg-4.5 mcg/actuation aerosol inhaler cyclobenzaprine 10 mg tablet 10 mg PO TID tablet 01/21/21 07/24/21 insulin degludec 100 unit/mL (3 40 unit SUBCUT QAM ml 04/03/21 07/24/21 mL) subcutaneous pen rivaroxaban 20 mg tablet 20 mg PO DAILY 04/03/21 07/24/21 insulin lispro 100 unit/mL 15 unit SUBCUT TID ml 05/14/21 07/24/21 subcutaneous pen hydrocodone-acetaminophen 1 tablet PO Q8H PRN 06/01/21 07/24/21 isosorbide mononitrate 30 mg PO DAILY 06/01/21 07/24/21 nitroglycerin [Nitrostat] 0.4 mg SUBLINGUAL Q5-15M PRN 06/01/21 07/24/21 pregabalin [Lyrica] 150 mg PO Q12H 06/01/21 07/24/21 ropinirole 3 mg PO BID 06/01/21 07/24/21 carvedilol 25 mg tablet 6.25 mg PO Q12H tablet 06/12/21 07/24/21 furosemide 40 mg tablet 20 mg PO Q12H tablet 06/12/21 07/24/21 Allergies Allergy/AdvReac Type Severity Reaction Status Date / Time cephalexin Allergy Unknown Diarrhea Verified 07/30/21 23:53 diphenhydramine Allergy Unknown JERKY/JUMPY, Verified 07/30/21 23:53 GO CRAZY IN MY SKIN latex Allergy Unknown Hives Verified 07/30/21 23:53 Penicillins Allergy Unknown Hives Verified 07/30/21 23:53 Review of Systems Review of Systems: CONSTITUTIONAL: Denies fever CARDIOVASCULAR: Denies chest pain RESPIRATORY: Denies dyspnea. SKIN: Reports erythema All systems reviewed & are unremarkable except as noted in HPI and below PMFSH Past Medical History Medical History Asthma Asthma Bipolar disorder Celiac disease Chronic anticoagulation On Xarelto for paroxysmal atrial fibrillation/flutter. Chronic obstructive pulmonary disease Coronary artery disease Diffuse severe LAD disease with positive IFR and moderate RCA disease noted on cardiac catheterization in 2019. Managed medically. Diabetic peripheral neuropathy Diverticulosis Gastroesophageal reflux disease Heart failure with reduced ejection fraction Follows with [facility] and Dr. Mishra. EF was 50% following MitraClip in 2019 though was her most recent ejection fraction was 20 to 25% in November 2020. Hyperlipidemia Hypertension Insulin dependent type 2 diabetes mellitus Hemoglobin A1c was 8.5% on 05/16/2021. Iron deficiency anemia With history of blood transfusion. Kidney stones Morbid obesity Status post gastric bypass surgery in September 2002 with a preoperative weight of 280 lb. Obstructive sleep apnea Paroxysmal atrial fibrillation Restless leg syndrome Rheumatoid arthritis Severe mitral valve regurgitation Status post MitraClip in 2019. Thyroid disease Patient no longer takes thyroid medicine. Transient ischemic attack Urinary incontinence Surgical History Surgical History Gastric bypass status for obesity (09/2002) H/O section History of bilateral carpal tunnel release History of bladder surgery Insertion of bladder stimulator for urinary incontinence. History of cholecystectomy History of cystoscopy History of esophagogastroduodenoscopy (EGD) History of hysterectomy for
[2021-08-02 13:35] LABS: Partial Thromboplastin Time 24.6 SECONDS (22.3-36.8)
[2021-08-02 13:36] LABS: Anion Gap 7 mmol/L (8-16); Blood Urea Nitrogen 24 mg/dL (7-17); CRP < 0.5 mg/dL (<1.0); Calcium 9.5 mg/dL (8.4-10.2); Carbon Dioxide 28 mmol/L (22-30); Chloride 101 mmol/L (98-107); Estimated CRCL calculation 85 ml/min; Estimated Glomerular Filt Rate > 60; Glucose 253 mg/dL (65-110); Potassium 4.4 mmol/L (3.4-5.0); Sodium 136 mmol/L (137-145)
[2021-08-02 13:45] LABS: NT Pro B Type Natriuretic Pept 180 pg/mL (5-100)
[2021-08-02 14:26] LABS: Erythrocyte Sedimentation Rate 14 mm/hr (0-20)
[2021-08-02] MEDS: HYDROcodone/acetaminophen (*CRX) 5-325 MG TABLET 1 TAB PO (16:05)
[2021-08-02 17:30] VITALS: BP 134/85; PULSE 107; RESP 16; O2SAT 96
[2021-08-02] MEDS: LORazepam (*CRX) 0.5 MG TABLET PO (17:41)
[2021-08-02] MEDS: KETOROLAC 30 MG/ML VIAL (*BKC) IV PUSH (17:44)
[2021-08-02 19:34] LABS: Glucose Point of Care 190 mg/dl (65-105)
[2021-08-02 19:40] VITALS: BP 137/65; PULSE 86; RESP 16; O2SAT 100
[2021-08-02 20:03] LABS: SARS-CoV-2 RNA PCR Negative
--- NOTE | 2021-08-02 20:30 | PM.IMHP ---
H&P: HPI History of Present Illness Date/Time: 08/02/21 20:30 this is a 66-year-old female patient who came to the emergency room for bilateral lower extremity redness and pain over the last week. It has been worse any since last night. the patient recently finished her oral antibiotics clindamycin from her cellulitis a week ago. the patient has been admitted several times for her lower extremity cellulitis. The patient was discharged from here on 07/05/2022. Her white count is within normal limits. Patient's blood sugar was initially noted to be 253 and then 190. Patient checked her sugar with the [employer] and it was noted that her blood sugar was over 300. The patient was started on Primaxin and vancomycin. She was given Ativan and Toradol in the emergency room as well as [place]. The patient is being minute traps inpatient status on the date of service of 08/02/2021. Chief Complaint: lower extremity redness Review of Systems Review of Systems: All systems reviewed & are unremarkable except as noted in HPI and below Constitutional: Constitutional: Reports as per HPI and Reports no additional constitutional complaints Eyes: Eyes: Reports as per HPI and Reports no additional eye complaints ENT: Reports system reviewed and no additional complaints, except as documented and Reports Normal hearing present Cardiovascular: Cardiovascular: Reports no additional cardiovascular complaints Respiratory: Respiratory: Reports no additional respiratory complaints and Reports no additional respiratory complaints Gastrointestinal: Gastrointestinal: Reports as per HPI and Reports no additional gastrointestinal complaints Musculoskeletal: Musculoskeletal: Reports no additional musculoskeletal complaints Integumentary/Breasts: Skin/Breast: Reports system reviewed and no additional complaints, except as docu and Reports as per HPI Neurologic: Reports system reviewed and no additional complaints, except as documented, Reports as per HPI and Reports Normal hearing present Psychiatric: Psychiatric: Reports no additional psychiatric complaints and Reports as per HPI Endocrine: Endocrine: Reports no additional endocrine complaints Hematologic/Lymphatic: Hematologic/Lymphatic: Reports no additional hematologic/lymphatic complaints Allergic/Immunologic: Allergic/Immunologic: Reports no additional allergic/immunologic complaints [facility] Past Medical History Medical History Asthma Asthma Bipolar disorder Celiac disease Chronic anticoagulation On Xarelto for paroxysmal atrial fibrillation/flutter. Chronic obstructive pulmonary disease Coronary artery disease Diffuse severe LAD disease with positive IFR and moderate RCA disease noted on cardiac catheterization in 2019. Managed medically. Diabetic peripheral neuropathy Diverticulosis Gastroesophageal reflux disease Heart failure with reduced ejection fraction Follows with [facility] and Dr. Mishra. EF was 50% following MitraClip in 2019 though was her most recent ejection fraction was 20 to 25% in November 2020. Hyperlipidemia Hypertension Insulin dependent type 2 diabetes mellitus Hemoglobin A1c was 8.5% on 05/16/2021. Iron deficiency anemia With history of blood transfusion. Kidney stones Morbid obesity Status post gastric bypass surgery in September 2002 with a preoperative weight of 280 lb. Obstructive sleep apnea Paroxysmal atrial fibrillation Restless leg syndrome Rheumatoid arthritis Severe mitral valve regurgitation Status post MitraClip in 2019. Thyroid disease Patient no longer takes thyroid medicine. Transient ischemic attack Urinary incontinence Surgical History Surgical History Gastric bypass status for obesity (09/2002) H/O section History of bilateral carpal tunnel release History of bladder surgery Insertion of bladder stimulator for ur
[2021-08-02 22:00] VITALS: BP 113/60; PULSE 88; RESP 20; O2SAT 97
--- NOTE | 2021-08-02 23:49 | PC.NURSE ---
[id number]-REPORT TO [facility] FOR 309.
[2021-08-03] MEDS: HYDROcodone/acetaminophen (*CRX) 7.5-325 MG TABLET 1 TAB PO ×3 (00:56→20:43)
[2021-08-03 02:41] LABS: Glucose Point of Care 285 mg/dl (65-105)
[2021-08-03 05:34] VITALS: BP 128/67; PULSE 93; RESP 18; TEMP 36.5; O2SAT 99
[2021-08-03 06:48] LABS: Basophils Absolute Auto 0.1 K/mm3 (0.0-0.1); Basophils Percent Auto 1.5 % (0.2-1.2); Eosinophils Absolute Auto 0.2 K/mm3 (0-0.3); Immature Granulocyte Absolute 0.02 K/mm3 (0.00-0.031); Immature Granulocyte Percent A 0.4 % (0-0.5); Lymphocytes Absolute Auto 1.35 K/mm3 (0.9-3.2); Lymphocytes Percent Auto 29.2 % (18.3-44.2); Mean Corpuscular HGB Conc 32.5 g/dl (32-36); Mean Corpuscular Hemoglobin 29.7 pg (26-34); Mean Corpuscular Volume 91.3 fl (80-100); Mean Platelet Volume 10.5 fl (7.4-10.4); Monocytes Absolute Auto 0.7 K/mm3 (0.1-0.6); Monocytes Percent Auto 14.3 % (2.6-8.5); Neutrophils Absolute Auto 2.3 K/mm3 (1.3-6.7); Neutrophils Percent Auto 49.6 % (45.5-73.1); Platelet Count Result 176 k/mm3 (150-375); Red Blood Count 4.38 M/mm3 (4.2-5.4); Red Cell Distribution Width 13.8 % (11.5-14.5); White Blood Count 4.6 K/mm3 (4.5-10.0)
[2021-08-03 07:25] LABS: Alanine Aminotransferase 108 U/L (4-35); Albumin Level 3.7 g/dL (3.5-5.1); Alkaline Phosphatase 121 U/L (38-126); Anion Gap 1 mmol/L (8-16); Aspartate Amino Transferase 67 U/L (14-36); Bilirubin,Total 0.7 mg/dL (0.2-1.3); Blood Urea Nitrogen 26 mg/dL (7-17); Carbon Dioxide 28 mmol/L (22-30); Chloride 105 mmol/L (98-107); Estimated CRCL calculation 75 ml/min; Estimated Glomerular Filt Rate > 60; Glucose 218 mg/dL (65-110); Magnesium 2.3 mg/dL (1.6-2.3); Potassium 4.4 mmol/L (3.4-5.0); Sodium 134 mmol/L (137-145)
[2021-08-03 07:57] LABS: Glucose Point of Care 176 mg/dl (65-105)
--- NOTE | 2021-08-03 10:30 | PM.IMPN ---
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 paroxysmal atrial fibrillation (3) Obstructive sleep apnea: Code(s): G47.33 - Obstructive sleep apnea (adult) (pediatric) Status: Acute Assessment and Plan: continue with CPAP settings that she uses at home. (4) Insulin dependent type 2 diabetes mellitus: Code(s): E11.9 - Type 2 diabetes mellitus without complications; Z79.4 - care home (current) use of insulin Status: Acute Assessment and Plan: Accu-Cheks a.c. and HS with sliding scale insulin. (5) Chronic obstructive pulmonary disease: Code(s): J44.9 - Chronic obstructive pulmonary disease, unspecified Status: Acute Assessment and Plan: Continue with home inhalers. (6) Congestive heart failure: Code(s): I50.9 - Heart failure, unspecified Status: Acute Assessment and Plan: Continue with Coreg and Entresto. Monitor daily weights in I/O strictly. Continue with Lasix. continue with isosorbide. (7) Paroxysmal atrial fibrillation: Code(s): I48.0 - Paroxysmal atrial fibrillation Status: Acute Assessment and Plan: patient is in sinus rhythm at this time. Continue with patient's around the and Coreg. Continue with Xarelto (8) Hyperlipidemia LDL goal <100: Code(s): E78.5 - Hyperlipidemia, unspecified Status: Acute Assessment and Plan: Continue with atrial for a stat (9) Peripheral neuropathy: Qualifiers: Peripheral neuropathy type: polyneuropathy associated with underlying disease Qualified Code(s): G63 - Polyneuropathy in diseases classified elsewhere Code(s): G62.9 - Polyneuropathy, unspecified Status: Acute Assessment and Plan: Continue with gabapentin and hydrocodone. Time Spent With Patient Time with patient: Greater than 35 minutes Subjective Date/time seen: 08/03/21 1100 Interval history: Date/Time: 08/02/21 20:30 This is a 66-year-old female patient who came to the emergency room for bilateral lower extremity redness and pain over the last week. It has been worse any since last night. the patient recently finished her oral antibiotics clindamycin from her cellulitis a week ago. the patient has been admitted several times for her lower extremity cellulitis. The patient was discharged from here on 07/05/2022. Her white count is within normal limits. Patient's blood sugar was initially noted to be 253 and then 190. Patient checked her sugar with the [employer] and it was noted that her blood sugar was over 300. The patient was started on Primaxin and vancomycin. She was given Ativan and Toradol in the emergency room as well as [place]. The patient is being minute traps inpatient status on the date of service of 08/02/2021. Date/Time 08/03/21 1100 Patient is sitting on the side of the bed. Patient stated that her legs started to get red and swelling hurt. Patient has been using cold water and cold compresses to relieve her symptoms. Patient is also noted to have redness on her forearms. She denies any other symptoms like chest pain or shortness of breath nausea vomiting diarrhea, constipation. I have asked Dr. Mauricio to go see the patient to rule out that this could be a rash. She denies any current or new changes at home including laundry detergent, bath soaps, or foods. Allergic reaction should also be ruled out. She was also on gabapentin here,
[2021-08-03] MEDS: LORazepam INJ (*CRX) 2 MG/ML VIAL 0.5 MG IV PUSH (10:37)
[2021-08-03 11:27] LABS: Glucose Point of Care 232 mg/dl (65-105)
[2021-08-03] MEDS: INSULIN ASPART (*BKC) 100 UNITS/ML SUB-Q ×2 (12:05→17:43)
[2021-08-03 13:05] LABS: Free T4 Free Thyroxine Reflex 0.98 ng/dL (0.78-2.19)
[2021-08-03 13:59] LABS: Total Triiodothyronine (T3) 1.25 NG/ML (0.97-1.69)
[2021-08-03 14:00] VITALS: BP 129/68; PULSE 92; RESP 14; TEMP 36.5; O2SAT 100
[2021-08-03 16:03] LABS: Glucose Point of Care 280 mg/dl (65-105)
[2021-08-03] MEDS: TRIAMCINOLONE ACET 0.5% OINT 15 GM TUBE 1 APPLIC TOPICAL (17:44)
[2021-08-03 20:00] VITALS: PULSE 93; RESP 18; O2SAT 99
[2021-08-03 21:26] VITALS: BP 117/67; PULSE 97; RESP 20; TEMP 36.3; O2SAT 99
[2021-08-04] MEDS: HYDROcodone/acetaminophen (*CRX) 7.5-325 MG TABLET 1 TAB PO ×3 (00:37→15:17)
[2021-08-04] MEDS: FAMOTIDINE 20 MG/2 ML VIAL IV PUSH ×3 (00:39→22:58)
[2021-08-04 02:40] LABS: Glucose Point of Care 242 mg/dl (65-105)
[2021-08-04 06:33] VITALS: BP 143/69; PULSE 99; RESP 20; TEMP 36.3; O2SAT 95
--- NOTE | 2021-08-04 06:41 | PCRCNOTE ---
patient refused use of hospital unit; pt stated that she has a fear of suffocation with home unit
[2021-08-04 07:58] LABS: Basophils Percent Auto 0.9 % (0.2-1.2); Eosinophils Absolute Auto 0.1 K/mm3 (0-0.3); Eosinophils Percent Auto 2.7 % (0-4.4); Hematocrit 41.2 % (37.0-47.0); Hemoglobin 13.7 g/dL (12.0-15.0); Immature Granulocyte Absolute 0.01 K/mm3 (0.00-0.031); Immature Granulocyte Percent A 0.2 % (0-0.5); Lymphocytes Percent Auto 26.6 % (18.3-44.2); Mean Corpuscular HGB Conc 33.3 g/dl (32-36); Mean Corpuscular Hemoglobin 30.1 pg (26-34); Mean Corpuscular Volume 90.5 fl (80-100); Mean Platelet Volume 10.6 fl (7.4-10.4); Monocytes Absolute Auto 0.5 K/mm3 (0.1-0.6); Monocytes Percent Auto 11.8 % (2.6-8.5); Neutrophils Absolute Auto 2.6 K/mm3 (1.3-6.7); Neutrophils Percent Auto 57.8 % (45.5-73.1); Platelet Count Result 188 k/mm3 (150-375); Red Blood Count 4.55 M/mm3 (4.2-5.4); Red Cell Distribution Width 13.6 % (11.5-14.5); White Blood Count 4.5 K/mm3 (4.5-10.0)
[2021-08-04 08:09] LABS: Alanine Aminotransferase 310 U/L (4-35); Albumin Level 4.1 g/dL (3.5-5.1); Alkaline Phosphatase 242 U/L (38-126); Anion Gap 3 mmol/L (8-16); Aspartate Amino Transferase 638 U/L (14-36); Bilirubin,Total 0.7 mg/dL (0.2-1.3); Blood Urea Nitrogen 22 mg/dL (7-17); Calcium 9.4 mg/dL (8.4-10.2); Carbon Dioxide 27 mmol/L (22-30); Chloride 104 mmol/L (98-107); Estimated CRCL calculation 98 ml/min; Estimated Glomerular Filt Rate > 60; Glucose 262 mg/dL (65-110); Magnesium 2.2 mg/dL (1.6-2.3); Potassium 4.1 mmol/L (3.4-5.0); Sodium 134 mmol/L (137-145)
[2021-08-04 08:13] LABS: Glucose Point of Care 231 mg/dl (65-105)
[2021-08-04] MEDS: LORazepam INJ (*CRX) 2 MG/ML VIAL 0.5 MG IV PUSH (08:52)
[2021-08-04] MEDS: LORATADINE 10 MG TABLET PO (10:29)
[2021-08-04] MEDS: TRIAMCINOLONE ACET 0.5% OINT 15 GM TUBE 1 APPLIC TOPICAL ×3 (10:29→18:23)
--- NOTE | 2021-08-04 10:30 | PM.IMPN ---
Progress Note: A&P Assessment and Plan (1) Bilateral cellulitis of lower leg: Code(s): L03.116 - Cellulitis of left lower limb; L03.115 - Cellulitis of right lower limb Status: Acute Assessment and Plan: restarted on vancomycin and Primaxin day 2 topical steroids for contact dermatitis started lower extremities are very red, hot, and swollen Blood cultures are pending Wound consult Think that she would benefit from a wound care visit biweekly (2) Chronic anticoagulation: Code(s): Z79.01 - half-way (current) use of anticoagulants Status: Acute Assessment and Plan: Continue with Xarelto. paroxysmal atrial fibrillation (3) Obstructive sleep apnea: Code(s): G47.33 - Obstructive sleep apnea (adult) (pediatric) Status: Acute Assessment and Plan: continue with CPAP settings that she uses at home. (4) Insulin dependent type 2 diabetes mellitus: Code(s): E11.9 - Type 2 diabetes mellitus without complications; Z79.4 - half-way (current) use of insulin Status: Acute Assessment and Plan: Accu-Cheks a.c. and HS with sliding scale insulin. (5) Chronic obstructive pulmonary disease: Code(s): J44.9 - Chronic obstructive pulmonary disease, unspecified Status: Acute Assessment and Plan: Continue with home inhalers. (6) Congestive heart failure: Code(s): I50.9 - Heart failure, unspecified Status: Acute Assessment and Plan: Continue with Coreg and Entresto daily weights I/O strictly Change PO lasix to IV for now continue with isosorbide Echo from EF 40-45% grade 2 diastolic dysfunction (7) Paroxysmal atrial fibrillation: Code(s): I48.0 - Paroxysmal atrial fibrillation Status: Acute Assessment and Plan: sinus rhythm at this time Continue Coreg. Continue with Xarelto (8) Hyperlipidemia LDL goal <100: Code(s): E78.5 - Hyperlipidemia, unspecified Status: Acute Assessment and Plan: Continue with atrial for a stat (9) Peripheral neuropathy: Qualifiers: Peripheral neuropathy type: polyneuropathy associated with underlying disease Qualified Code(s): G63 - Polyneuropathy in diseases classified elsewhere Code(s): G62.9 - Polyneuropathy, unspecified Status: Acute Assessment and Plan: Continue with gabapentin and hydrocodone. Time Spent With Patient Time with patient: Greater than 35 minutes Subjective Date/time seen: 08/04/21 10:30 Interval history: Date/Time: 08/02/21 20:30 This is a 66-year-old female patient who came to the emergency room for bilateral lower extremity redness and pain over the last week. It has been worse any since last night. the patient recently finished her oral antibiotics clindamycin from her cellulitis a week ago. the patient has been admitted several times for her lower extremity cellulitis. The patient was discharged from here on 07/05/2022. Her white count is within normal limits. Patient's blood sugar was initially noted to be 253 and then 190. Patient checked her sugar with the [employer] and it was noted that her blood sugar was over 300. The patient was started on Primaxin and vancomycin. She was given Ativan and Toradol in the emergency room as well as [place]. The patient is being minute traps inpatient status on the date of service of 08/02/2021. Date/Time 08/03/21 1100 Patient is sitting on the side of the bed. Patient stated that her legs started to get red and swelling hurt. Patient has been using cold water and cold compresses to relieve her symptoms. Patient is also noted to have redness on her forearms. She denies any other symptoms like chest pain or shortness of breath nausea vomiting diarrhea, constipation. I have asked Dr. Mauricio to go see the patient to rule out that this could be a rash. She denies any current or new changes at home in
[2021-08-04 12:54] LABS: Glucose Point of Care 266 mg/dl (65-105)
[2021-08-04 14:00] VITALS: BP 130/72; PULSE 93; RESP 20; TEMP 37; O2SAT 97
[2021-08-04] MEDS: ATORVASTATIN 40 MG TABLET PO (15:50)
[2021-08-04] MEDS: SACUBITRIL/VALSARTAN 49-51 MG TABLET 1 TABLET PO ×2 (15:50→22:59)
[2021-08-04] MEDS: carvediloL 6.25 MG TABLET PO ×2 (15:50→23:05)
[2021-08-04] MEDS: ISOSORBIDE MONONITRATE 30 MG TAB.ER.24H PO (15:51)
[2021-08-04 16:51] LABS: Glucose Point of Care 347 mg/dl (65-105)
[2021-08-04] MEDS: GABAPENTIN 100 MG CAPSULE PO (18:21)
[2021-08-04] MEDS: FERROUS SULFATE 324 MG TABLET PO (18:21)
[2021-08-04] MEDS: FUROSEMIDE 20 MG TABLET PO (18:21)
[2021-08-04] MEDS: RIVAROXABAN 20 MG TABLET PO (18:22)
[2021-08-04] MEDS: rOPINIRole HCL 1 MG TABLET 3 MG PO (18:22)
[2021-08-04] MEDS: INSULIN ASPART (*BKC) 100 UNITS/ML SUB-Q (18:22)
[2021-08-04] MEDS: INSULIN ASPART (*BKC) 100 UNITS/ML 10 UNITS SUB-Q (18:23)
[2021-08-04 22:00] VITALS: BP 150/73; PULSE 86; RESP 16; TEMP 36.1; O2SAT 100
[2021-08-04] MEDS: MELATONIN 5 MG TABLET PO (22:58)
[2021-08-04] MEDS: PREGABALIN (*CRX) 75 MG CAPSULE 150 MG PO (22:59)
[2021-08-04 23:05] VITALS: PULSE 86
[2021-08-04 23:41] LABS: Glucose Point of Care 189 mg/dl (65-105)
[2021-08-05] VITALS (14 sets, daily range): BP systolic 63–152; BP diastolic 32–86; PULSE 79–126; RESP 16–18; TEMP 35.6–36.6; O2SAT 92–99
[2021-08-05] MEDS: ALBUTEROL SULFATE (*SP) INHALER 1 PUFF INHALATION ×6 (00:21→20:45)
[2021-08-05 02:47] LABS: Vancomycin Trough 17.5 ug/mL (10.0-20.0)
[2021-08-05] MEDS: FUROSEMIDE 20 MG TABLET PO ×2 (06:37→17:37)
[2021-08-05 07:48] LABS: Basophils Absolute Auto 0.1 K/mm3 (0.0-0.1); Basophils Percent Auto 1.2 % (0.2-1.2); Eosinophils Absolute Auto 0.2 K/mm3 (0-0.3); Eosinophils Percent Auto 3.5 % (0-4.4); Hematocrit 38.4 % (37.0-47.0); Immature Granulocyte Absolute 0.02 K/mm3 (0.00-0.031); Immature Granulocyte Percent A 0.4 % (0-0.5); Lymphocytes Absolute Auto 1.42 K/mm3 (0.9-3.2); Lymphocytes Percent Auto 27.8 % (18.3-44.2); Mean Corpuscular HGB Conc 33.9 g/dl (32-36); Mean Corpuscular Hemoglobin 30.1 pg (26-34); Mean Corpuscular Volume 88.9 fl (80-100); Mean Platelet Volume 10.4 fl (7.4-10.4); Monocytes Absolute Auto 0.6 K/mm3 (0.1-0.6); Neutrophils Absolute Auto 2.8 K/mm3 (1.3-6.7); Neutrophils Percent Auto 55.1 % (45.5-73.1); Platelet Count Result 175 k/mm3 (150-375); Red Blood Count 4.32 M/mm3 (4.2-5.4); Red Cell Distribution Width 13.3 % (11.5-14.5); White Blood Count 5.1 K/mm3 (4.5-10.0)
[2021-08-05 07:57] LABS: Glucose Point of Care 233 mg/dl (65-105)
[2021-08-05 08:00] LABS: Alanine Aminotransferase 187 U/L (4-35); Albumin Level 3.8 g/dL (3.5-5.1); Alkaline Phosphatase 211 U/L (38-126); Anion Gap 5 mmol/L (8-16); Aspartate Amino Transferase 119 U/L (14-36); Bilirubin,Total 0.9 mg/dL (0.2-1.3); Blood Urea Nitrogen 17 mg/dL (7-17); Calcium 9.1 mg/dL (8.4-10.2); Carbon Dioxide 24 mmol/L (22-30); Chloride 103 mmol/L (98-107); Estimated CRCL calculation 98 ml/min; Estimated Glomerular Filt Rate > 60; Glucose 250 mg/dL (65-110); Potassium 3.7 mmol/L (3.4-5.0); Sodium 132 mmol/L (137-145)
[2021-08-05] MEDS: ATORVASTATIN 40 MG TABLET PO (08:37)
[2021-08-05] MEDS: FERROUS SULFATE 324 MG TABLET PO ×2 (08:37→17:36)
[2021-08-05] MEDS: FAMOTIDINE 20 MG/2 ML VIAL IV PUSH ×2 (08:37→23:03)
[2021-08-05] MEDS: GABAPENTIN 100 MG CAPSULE PO ×3 (08:37→17:36)
[2021-08-05] MEDS: carvediloL 6.25 MG TABLET PO ×2 (08:37→23:08)
[2021-08-05] MEDS: SACUBITRIL/VALSARTAN 49-51 MG TABLET 1 TABLET PO ×2 (08:38→23:03)
[2021-08-05] MEDS: LORATADINE 10 MG TABLET PO (08:38)
[2021-08-05] MEDS: ISOSORBIDE MONONITRATE 30 MG TAB.ER.24H PO (08:38)
[2021-08-05] MEDS: rOPINIRole HCL 1 MG TABLET 3 MG PO ×2 (08:38→17:36)
[2021-08-05] MEDS: PREGABALIN (*CRX) 75 MG CAPSULE 150 MG PO ×2 (08:38→23:03)
[2021-08-05] MEDS: INSULIN ASPART (*BKC) 100 UNITS/ML SUB-Q ×3 (08:39→17:38)
[2021-08-05] MEDS: INSULIN ASPART (*BKC) 100 UNITS/ML 10 UNITS SUB-Q ×3 (08:39→17:38)
[2021-08-05] MEDS: TRIAMCINOLONE ACET 0.5% OINT 15 GM TUBE 1 APPLIC TOPICAL ×3 (08:39→17:37)
[2021-08-05] MEDS: INSULIN GLARGINE (LANTUS) 1,000 UNITS/10 ML VIAL 30 UNITS SUB-Q (08:41)
[2021-08-05] MEDS: FLUTICASONE/SALMETEROL 115-21 MCG (*SP) INHALER 2 PUFF INHALATION ×2 (08:55→20:45)
--- NOTE | 2021-08-05 10:00 | PM.IMPN ---
Progress Note: A&P Assessment and Plan (1) Acute metabolic encephalopathy: Code(s): G93.41 - Metabolic encephalopathy Status: Acute Assessment and Plan: Episode of altered mental status with a syncopal like episode with hypotension Hypotension noted with a blood pressure in the 60s systolically IV fluid started Stroke not indicated Chest xray shows Right basilar airspace opacity, consistent with atelectasis versus pneumonia Probably from a vasovagal episode Telemonitor EKG shows SR with BBB (2) Bilateral cellulitis of lower leg: Code(s): L03.116 - Cellulitis of left lower limb; L03.115 - Cellulitis of right lower limb Status: Acute Assessment and Plan: restarted on vancomycin and Primaxin day 3 topical steroids for contact dermatitis started lower extremities are better today with reduced redness, warmth, and swelling Blood cultures are pending Wound consult Think that she would benefit from a wound care visit biweekly (3) Chronic anticoagulation: Code(s): Z79.01 - [facility] (current) use of anticoagulants Status: Acute Assessment and Plan: Continue with Xarelto. paroxysmal atrial fibrillation (4) Obstructive sleep apnea: Code(s): G47.33 - Obstructive sleep apnea (adult) (pediatric) Status: Acute Assessment and Plan: continue with CPAP settings that she uses at home. (5) Insulin dependent type 2 diabetes mellitus: Code(s): E11.9 - Type 2 diabetes mellitus without complications; Z79.4 - [facility] (current) use of insulin Status: Acute Assessment and Plan: Current glucose 250 Accu-Cheks a.c. and HS with sliding scale insulin Trend labs (6) Chronic obstructive pulmonary disease: Code(s): J44.9 - Chronic obstructive pulmonary disease, unspecified Status: Acute Assessment and Plan: Continue with home inhalers. (7) Congestive heart failure: Code(s): I50.9 - Heart failure, unspecified Status: Acute Assessment and Plan: Continue with Coreg and Entresto daily weights I/O strictly Continue PO lasix 20mg PO Q12hr continue with isosorbide Echo from EF 40-45% grade 2 diastolic dysfunction (8) Paroxysmal atrial fibrillation: Code(s): I48.0 - Paroxysmal atrial fibrillation Status: Acute Assessment and Plan: sinus rhythm at this time Continue Coreg. Continue with Xarelto (9) Hyperlipidemia LDL goal <100: Code(s): E78.5 - Hyperlipidemia, unspecified Status: Acute Assessment and Plan: Continue with atrial for a stat (10) Peripheral neuropathy: Qualifiers: Peripheral neuropathy type: polyneuropathy associated with underlying disease Qualified Code(s): G63 - Polyneuropathy in diseases classified elsewhere Code(s): G62.9 - Polyneuropathy, unspecified Status: Acute Assessment and Plan: Continue with gabapentin and hydrocodone. (11) Transaminitis: Code(s): R74.01 - Elevation of levels of liver transaminase levels Status: Acute Assessment and Plan: AST/ALT 119/187 Alk phos 211 Chronic findings as she has been worked up in the past Continue to trend Time Spent With Patient Time with patient: Greater than 35 minutes Subjective Date/time seen: 08/05/21 1000 Interval history: Date/Time: 08/02/21 20:30 This is a 66-year-old female patient who came to the emergency room for bilateral lower extremity redness and pain over the last week. It has been worse any since last night. the patient recently finished her oral antibiotics clindamycin from her cellulitis a week ago. the patient has been admitted several times for her lower extremity cellulitis. The patient was discharged from here on 07/05/2022. Her white count is within normal limits. Patient's blood sugar was initially noted to be 253 and then 190. P
--- NOTE | 2021-08-05 10:00 | P.PNIM_ITS ---
Progress Note: A&P Assessment and Plan (1) Acute metabolic encephalopathy: Code(s): G93.41 - Metabolic encephalopathy Status: Acute Assessment and Plan: * Episode of altered mental status with a syncopal like episode with hypotension * Hypotension noted with a blood pressure in the 60s systolically * IV fluid started * Stroke not indicated * Chest xray shows Right basilar airspace opacity, consistent with atelectasis versus pneumonia * Probably from a vasovagal episode * Telemonitor * EKG shows SR with BBB (2) Bilateral cellulitis of lower leg: Code(s): L03.116 - Cellulitis of left lower limb; L03.115 - Cellulitis of right lower limb Status: Acute Assessment and Plan: * restarted on vancomycin and Primaxin day 3 * topical steroids for contact dermatitis started * lower extremities are better today with reduced redness, warmth, and swelling * Blood cultures are pending * Wound consult * Think that she would benefit from a wound care visit biweekly (3) Chronic anticoagulation: Code(s): Z79.01 - terminal clerk (current) use of anticoagulants Status: Acute Assessment and Plan: * Continue with Xarelto. * paroxysmal atrial fibrillation (4) Obstructive sleep apnea: Code(s): G47.33 - Obstructive sleep apnea (adult) (pediatric) Status: Acute Assessment and Plan: continue with CPAP settings that she uses at home. (5) Insulin dependent type 2 diabetes mellitus: Code(s): E11.9 - Type 2 diabetes mellitus without complications; Z79.4 - terminal clerk (current) use of insulin Status: Acute Assessment and Plan: Current glucose 250 Accu-Cheks a.c. and HS with sliding scale insulin Trend labs (6) Chronic obstructive pulmonary disease: Code(s): J44.9 - Chronic obstructive pulmonary disease, unspecified Status: Acute Assessment and Plan: Continue with home inhalers. (7) Congestive heart failure: Code(s): I50.9 - Heart failure, unspecified Status: Acute Assessment and Plan: * Continue with Coreg and Entresto * daily weights * I/O strictly * Continue PO lasix 20mg PO Q12hr * continue with isosorbide * Echo from EF 40-45% grade 2 diastolic dysfunction (8) Paroxysmal atrial fibrillation: Code(s): I48.0 - Paroxysmal atrial fibrillation Status: Acute Assessment and Plan: * sinus rhythm at this time * Continue Coreg. * Continue with Xarelto (9) Hyperlipidemia LDL goal <100: Code(s): E78.5 - Hyperlipidemia, unspecified Status: Acute Assessment and Plan: Continue with atrial for a stat (10) Peripheral neuropathy: Qualifiers: Peripheral neuropathy type: polyneuropathy associated with underlying disease Qualified Code(s): G63 - Polyneuropathy in diseases classified elsewhere Code(s): G62.9 - Polyneuropathy, unspecified Status: Acute Assessment and Plan: Continue with gabapentin and hydrocodone. (11) Transaminitis: Code(s): R74.01 - Elevation of levels of liver transaminase levels Status: Acute Assessment and Plan: * AST/ALT 119/187 Alk phos 211 * Chronic findings as she has been worked up in the past * Continue to trend Time Spent With Patient Time with patient: Greater than 35 minutes Subjective Date/time seen: 08/05/21 1000 Interv
--- NOTE | 2021-08-05 10:15 | ECG_ITS ---
Measurements Intervals [place] Rate: 84 P: 39 AR: 184 QRS: 106 QRSD: 189 T: 15 QT: 443 QTc: 525 Interpretive Statements SINUS RHYTHM VENTRICULAR PREMATURE COMPLEX RIGHT AXIS DEVIATION RIGHT BUNDLE BRANCH BLOCK CONSIDER INFERIOR INFARCT, AGE INDETERMINATE ABNORMAL ECG Electronically Signed On 08-05-2021 11:27:03 MARKETING REPORTING ANALYST by Narinder Roche D.O.
--- NOTE | 2021-08-05 10:28 | PC.NURSE ---
came to patient's room per case coordination request. she states that patient was in chair and felt dizzy. vitals obtained: 96.1 93 16 92% on room air, 63/32. patient speech garbled, not able to form full sentences. patient looks like she is going to slide out of the chair. rapid response called. patient's blood sugar 362. patient assisted back to bed. blood pressure 80/50 manually. orders obtained for ekg cxr and lr wide open for 500 ml. patient answering questions at this time. blood pressure 106/80
[2021-08-05 10:38] LABS: Glucose Point of Care 362 mg/dl (65-105)
[2021-08-05 11:05] LABS: Troponin I < 0.012 ng/mL (0.000-0.034)
[2021-08-05 11:05] LABS: INR 1.1; Partial Thromboplastin Time 27.2 SECONDS (22.3-36.8)
[2021-08-05 12:16] LABS: Glucose Point of Care 272 mg/dl (65-105)
[2021-08-05] MEDS: LACTATED RINGERS 500 ML 999 ML IV CONT (12:53)
[2021-08-05 14:10] LABS: Troponin I < 0.012 ng/mL (0.000-0.034)
[2021-08-05] MEDS: HYDROcodone/acetaminophen (*CRX) 7.5-325 MG TABLET 1 TAB PO (15:21)
[2021-08-05 16:42] LABS: Glucose Point of Care 286 mg/dl (65-105)
[2021-08-05 16:55] LABS: Troponin I < 0.012 ng/mL (0.000-0.034)
[2021-08-05] MEDS: RIVAROXABAN 20 MG TABLET PO (17:36)
[2021-08-05] MEDS: MELATONIN 5 MG TABLET PO (23:03)
[2021-08-06] VITALS (12 sets, daily range): BP systolic 109–131; BP diastolic 62–85; PULSE 68–102; RESP 16; TEMP 36.3–37.2; O2SAT 95–100
[2021-08-06] MEDS: ALBUTEROL SULFATE (*SP) INHALER 1 PUFF INHALATION ×6 (00:21→21:18)
[2021-08-06] MEDS: FUROSEMIDE 20 MG TABLET PO ×2 (06:17→17:00)
[2021-08-06 07:03] LABS: Basophils Absolute Auto 0.1 K/mm3 (0.0-0.1); Basophils Percent Auto 1.1 % (0.2-1.2); Eosinophils Absolute Auto 0.2 K/mm3 (0-0.3); Eosinophils Percent Auto 4.8 % (0-4.4); Hematocrit 36.9 % (37.0-47.0); Hemoglobin 12.4 g/dL (12.0-15.0); Immature Granulocyte Absolute 0.02 K/mm3 (0.00-0.031); Immature Granulocyte Percent A 0.4 % (0-0.5); Lymphocytes Absolute Auto 1.35 K/mm3 (0.9-3.2); Lymphocytes Percent Auto 29.6 % (18.3-44.2); Mean Corpuscular HGB Conc 33.6 g/dl (32-36); Mean Corpuscular Hemoglobin 29.7 pg (26-34); Mean Corpuscular Volume 88.5 fl (80-100); Mean Platelet Volume 10.6 fl (7.4-10.4); Monocytes Absolute Auto 0.5 K/mm3 (0.1-0.6); Monocytes Percent Auto 11.2 % (2.6-8.5); Neutrophils Absolute Auto 2.4 K/mm3 (1.3-6.7); Neutrophils Percent Auto 52.9 % (45.5-73.1); Platelet Count Result 174 k/mm3 (150-375); Red Blood Count 4.17 M/mm3 (4.2-5.4); Red Cell Distribution Width 13.4 % (11.5-14.5); White Blood Count 4.6 K/mm3 (4.5-10.0)
[2021-08-06 07:11] LABS: Alanine Aminotransferase 140 U/L (4-35); Albumin Level 3.5 g/dL (3.5-5.1); Alkaline Phosphatase 166 U/L (38-126); Anion Gap 4 mmol/L (8-16); Aspartate Amino Transferase 74 U/L (14-36); Bilirubin,Total 0.6 mg/dL (0.2-1.3); Blood Urea Nitrogen 19 mg/dL (7-17); Calcium 8.9 mg/dL (8.4-10.2); Carbon Dioxide 30 mmol/L (22-30); Chloride 102 mmol/L (98-107); Estimated CRCL calculation 75 ml/min; Estimated Glomerular Filt Rate > 60; Glucose 225 mg/dL (65-110); Magnesium 1.9 mg/dL (1.6-2.3); Potassium 3.7 mmol/L (3.4-5.0); Sodium 136 mmol/L (137-145)
[2021-08-06] MEDS: FLUTICASONE/SALMETEROL 115-21 MCG (*SP) INHALER 2 PUFF INHALATION ×2 (07:52→21:19)
--- NOTE | 2021-08-06 08:00 | PM.IMPN ---
Progress Note: A&P Assessment and Plan (1) Acute metabolic encephalopathy: Code(s): G93.41 - Metabolic encephalopathy Status: Acute Assessment and Plan: Episode of altered mental status with a syncopal like episode with hypotension Hypotension noted with a blood pressure in the 60s systolically IV fluid started Stroke not indicated Chest xray shows Right basilar airspace opacity, consistent with atelectasis versus pneumonia Probably from a vasovagal episode Telemonitor EKG shows SR with BBB Think that this is from the [facility], stated that she has only had one dose at home. 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 paroxysmal atrial fibrillation (4) Obstructive sleep apnea: Code(s): G47.33 - Obstructive sleep apnea (adult) (pediatric) Status: Acute Assessment and Plan: continue with CPAP settings that she uses at home. (5) Insulin dependent type 2 diabetes mellitus: Code(s): E11.9 - Type 2 diabetes mellitus without complications; Z79.4 - custodial (current) use of insulin Status: Acute Assessment and Plan: Current glucose 250 Accu-Cheks a.c. and HS with sliding scale insulin Trend labs (6) Chronic obstructive pulmonary disease: Code(s): J44.9 - Chronic obstructive pulmonary disease, unspecified Status: Acute Assessment and Plan: Continue with home inhalers. (7) Congestive heart failure: Code(s): I50.9 - Heart failure, unspecified Status: Acute Assessment and Plan: Continue with Coreg and Entresto daily weights I/O strictly Continue PO lasix 20mg PO Q12hr continue with isosorbide Echo from EF 40-45% grade 2 diastolic dysfunction (8) Paroxysmal atrial fibrillation: Code(s): I48.0 - Paroxysmal atrial fibrillation Status: Acute Assessment and Plan: sinus rhythm at this time Continue Coreg. Continue with Xarelto (9) Hyperlipidemia LDL goal <100: Code(s): E78.5 - Hyperlipidemia, unspecified Status: Acute Assessment and Plan: Continue with atrial for a stat (10) Peripheral neuropathy: Qualifiers: Peripheral neuropathy type: polyneuropathy associated with underlying disease Qualified Code(s): G63 - Polyneuropathy in diseases classified elsewhere Code(s): G62.9 - Polyneuropathy, unspecified Status: Acute Assessment and Plan: Continue with gabapentin and hydrocodone. (11) Transaminitis: Code(s): R74.01 - Elevation of levels of liver transaminase levels Status: Acute Assessment and Plan: AST/ALT 119/187 Alk phos 211 Chronic findings as she has been worked up in the past Continue to trend Time Spent With Patient Time with patient: Greater than 35 minutes Subjective Date/time seen: 08/06/21 0800 Interval history: Date/Time: 08/02/21 20:30 This is a 66-year-old female patient who came to the emergency room for bilateral lower extremity redness and pain over the last week. It has been worse any since last night. the patient recently finished her oral antibiotics clindamycin from her cellulitis a week ago. the patient has been admitted several times for her lower extremity cellulitis. The patient was discharged from here on
--- NOTE | 2021-08-06 08:00 | P.PNIM_ITS ---
Progress Note: A&P Assessment and Plan (1) Acute metabolic encephalopathy: Code(s): G93.41 - Metabolic encephalopathy Status: Acute Assessment and Plan: * Episode of altered mental status with a syncopal like episode with hypotension * Hypotension noted with a blood pressure in the 60s systolically * IV fluid started * Stroke not indicated * Chest xray shows Right basilar airspace opacity, consistent with atelectasis versus pneumonia * Probably from a vasovagal episode * Telemonitor * EKG shows SR with BBB * Think that this is from the [facility], stated that she has only had one dose at home. 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 * paroxysmal atrial fibrillation (4) Obstructive sleep apnea: Code(s): G47.33 - Obstructive sleep apnea (adult) (pediatric) Status: Acute Assessment and Plan: continue with CPAP settings that she uses at home. (5) Insulin dependent type 2 diabetes mellitus: Code(s): E11.9 - Type 2 diabetes mellitus without complications; Z79.4 - [facility] (current) use of insulin Status: Acute Assessment and Plan: Current glucose 250 Accu-Cheks a.c. and HS with sliding scale insulin Trend labs (6) Chronic obstructive pulmonary disease: Code(s): J44.9 - Chronic obstructive pulmonary disease, unspecified Status: Acute Assessment and Plan: Continue with home inhalers. (7) Congestive heart failure: Code(s): I50.9 - Heart failure, unspecified Status: Acute Assessment and Plan: * Continue with Coreg and Entresto * daily weights * I/O strictly * Continue PO lasix 20mg PO Q12hr * continue with isosorbide * Echo from EF 40-45% grade 2 diastolic dysfunction (8) Paroxysmal atrial fibrillation: Code(s): I48.0 - Paroxysmal atrial fibrillation Status: Acute Assessment and Plan: * sinus rhythm at this time * Continue Coreg. * Continue with Xarelto (9) Hyperlipidemia LDL goal <100: Code(s): E78.5 - Hyperlipidemia, unspecified Status: Acute Assessment and Plan: Continue with atrial for a stat (10) Peripheral neuropathy: Qualifiers: Peripheral neuropathy type: polyneuropathy associated with underlying disease Qualified Code(s): G63 - Polyneuropathy in diseases classified elsewhere Code(s): G62.9 - Polyneuropathy, unspecified Status: Acute Assessment and Plan: Continue with gabapentin and hydrocodone. (11) Transaminitis: Code(s): R74.01 - Elevation of levels of liver transaminase levels Status: Acute Assessment and Plan: * AST/ALT 119/187 Alk phos 211 * Chronic findings as she has been worked up in the past * Continue to trend Time Spent Wit
[2021-08-06 08:16] LABS: Glucose Point of Care 162 mg/dl (65-105)
[2021-08-06] MEDS: GABAPENTIN 100 MG CAPSULE PO ×3 (09:39→16:14)
[2021-08-06] MEDS: SACUBITRIL/VALSARTAN 49-51 MG TABLET 1 TABLET PO ×2 (09:39→21:41)
[2021-08-06] MEDS: FAMOTIDINE 20 MG/2 ML VIAL IV PUSH ×2 (09:39→21:39)
[2021-08-06] MEDS: rOPINIRole HCL 1 MG TABLET 3 MG PO ×2 (09:39→21:40)
[2021-08-06] MEDS: FERROUS SULFATE 324 MG TABLET PO ×2 (09:40→16:13)
[2021-08-06] MEDS: LORATADINE 10 MG TABLET PO (09:40)
[2021-08-06] MEDS: ATORVASTATIN 40 MG TABLET PO (09:40)
[2021-08-06] MEDS: PREGABALIN (*CRX) 75 MG CAPSULE 150 MG PO ×2 (09:40→21:39)
[2021-08-06] MEDS: carvediloL 6.25 MG TABLET PO ×2 (09:40→21:48)
[2021-08-06] MEDS: INSULIN GLARGINE (LANTUS) 1,000 UNITS/10 ML VIAL 30 UNITS SUB-Q (09:53)
[2021-08-06] MEDS: INSULIN ASPART (*BKC) 100 UNITS/ML 10 UNITS SUB-Q ×3 (09:53→16:58)
[2021-08-06] MEDS: TRIAMCINOLONE ACET 0.5% OINT 15 GM TUBE 1 APPLIC TOPICAL ×3 (09:53→16:14)
[2021-08-06 12:07] LABS: Glucose Point of Care 222 mg/dl (65-105)
[2021-08-06] MEDS: INSULIN ASPART (*BKC) 100 UNITS/ML SUB-Q ×2 (12:42→16:57)
[2021-08-06] MEDS: RIVAROXABAN 20 MG TABLET PO (16:14)
[2021-08-06 16:55] LABS: Glucose Point of Care 202 mg/dl (65-105)
[2021-08-06] MEDS: MELATONIN 5 MG TABLET PO (21:40)
[2021-08-06 22:32] LABS: Glucose Point of Care 84 mg/dl (65-105)
[2021-08-07] VITALS (9 sets, daily range): BP systolic 104–160; BP diastolic 55–95; PULSE 83–96; RESP 16–18; TEMP 35.9–36.7; O2SAT 96–100
[2021-08-07] MEDS: ALBUTEROL SULFATE (*SP) INHALER 1 PUFF INHALATION ×3 (00:41→08:20)
[2021-08-07] MEDS: FUROSEMIDE 20 MG TABLET PO ×2 (06:03→17:20)
[2021-08-07 06:31] LABS: Basophils Absolute Auto 0.1 K/mm3 (0.0-0.1); Basophils Percent Auto 1.5 % (0.2-1.2); Eosinophils Absolute Auto 0.2 K/mm3 (0-0.3); Eosinophils Percent Auto 3.6 % (0-4.4); Hematocrit 41.8 % (37.0-47.0); Hemoglobin 13.6 g/dL (12.0-15.0); Immature Granulocyte Absolute 0.02 K/mm3 (0.00-0.031); Immature Granulocyte Percent A 0.4 % (0-0.5); Lymphocytes Absolute Auto 1.22 K/mm3 (0.9-3.2); Mean Corpuscular HGB Conc 32.5 g/dl (32-36); Mean Corpuscular Hemoglobin 29.6 pg (26-34); Mean Corpuscular Volume 91.1 fl (80-100); Mean Platelet Volume 10.6 fl (7.4-10.4); Monocytes Absolute Auto 0.5 K/mm3 (0.1-0.6); Monocytes Percent Auto 10.9 % (2.6-8.5); Neutrophils Absolute Auto 2.7 K/mm3 (1.3-6.7); Neutrophils Percent Auto 57.6 % (45.5-73.1); Platelet Count Result 182 k/mm3 (150-375); Red Blood Count 4.59 M/mm3 (4.2-5.4); Red Cell Distribution Width 13.4 % (11.5-14.5); White Blood Count 4.7 K/mm3 (4.5-10.0)
[2021-08-07 06:42] LABS: Alanine Aminotransferase 146 U/L (4-35); Albumin Level 3.8 g/dL (3.5-5.1); Alkaline Phosphatase 180 U/L (38-126); Anion Gap 1 mmol/L (8-16); Aspartate Amino Transferase 106 U/L (14-36); Bilirubin,Total 0.7 mg/dL (0.2-1.3); Blood Urea Nitrogen 18 mg/dL (7-17); Calcium 9.3 mg/dL (8.4-10.2); Carbon Dioxide 31 mmol/L (22-30); Chloride 101 mmol/L (98-107); Estimated CRCL calculation 85 ml/min; Estimated Glomerular Filt Rate > 60; Glucose 307 mg/dL (65-110); Potassium 3.7 mmol/L (3.4-5.0); Sodium 133 mmol/L (137-145)
[2021-08-07 08:06] LABS: Glucose Point of Care 251 mg/dl (65-105)
[2021-08-07] MEDS: FLUTICASONE/SALMETEROL 115-21 MCG (*SP) INHALER 2 PUFF INHALATION ×2 (08:20→19:44)
--- NOTE | 2021-08-07 09:00 | P.PNIM_ITS ---
Progress Note: A&P Assessment and Plan (1) Bilateral cellulitis of lower leg: Code(s): L03.116 - Cellulitis of left lower limb; L03.115 - Cellulitis of right lower limb Status: Acute Assessment and Plan: * restarted on vancomycin and Primaxin day 5 * started mupirocin per wound nurses * topical steroids for contact dermatitis started * lower extremities are better today with reduced redness, warmth, and swelling * Blood cultures are pending * Wound consult * Think that she would benefit from a wound care visit biweekly (2) Chronic anticoagulation: Code(s): Z79.01 - shelter (current) use of anticoagulants Status: Acute Assessment and Plan: * Continue with Xarelto. * paroxysmal atrial fibrillation (3) Obstructive sleep apnea: Code(s): G47.33 - Obstructive sleep apnea (adult) (pediatric) Status: Acute Assessment and Plan: continue with CPAP settings that she uses at home. (4) Insulin dependent type 2 diabetes mellitus: Code(s): E11.9 - Type 2 diabetes mellitus without complications; Z79.4 - shelter (current) use of insulin Status: Acute Assessment and Plan: Current glucose 307 Accu-Cheks a.c. and HS with sliding scale insulin Trend labs (5) Chronic obstructive pulmonary disease: Code(s): J44.9 - Chronic obstructive pulmonary disease, unspecified Status: Acute Assessment and Plan: Continue with home inhalers. (6) Congestive heart failure: Code(s): I50.9 - Heart failure, unspecified Status: Acute Assessment and Plan: * Continue with Coreg and Entresto * daily weights * I/O strictly * Continue PO lasix 20mg PO Q12hr * continue with isosorbide * Echo from EF 40-45% grade 2 diastolic dysfunction (7) Paroxysmal atrial fibrillation: Code(s): I48.0 - Paroxysmal atrial fibrillation Status: Acute Assessment and Plan: * sinus rhythm at this time * Continue Coreg. * Continue with Xarelto (8) Hyperlipidemia LDL goal <100: Code(s): E78.5 - Hyperlipidemia, unspecified Status: Acute Assessment and Plan: Continue with atrial for a stat (9) Peripheral neuropathy: Qualifiers: Peripheral neuropathy type: polyneuropathy associated with underlying disease Qualified Code(s): G63 - Polyneuropathy in diseases classified elsewhere Code(s): G62.9 - Polyneuropathy, unspecified Status: Acute Assessment and Plan: Continue with gabapentin and hydrocodone. (10) Transaminitis: Code(s): R74.01 - Elevation of levels of liver transaminase levels Status: Acute Assessment and Plan: * AST/ALT 106/146 Alk phos 211 * Chronic findings as she has been worked up in the past * Continue to trend (11) Acute metabolic encephalopathy: Code(s): G93.41 - Metabolic encephalopathy Status: Acute Assessment and Plan: * seems to be resolved * Episode of altered mental status with a syncopal like episode with hypotension * Hypotension noted with a blood pressure in the 60s systolically * IV fluid started * Stroke not indicated * Chest xray shows Right basilar airspace opacity, consistent with atelectasis versus pneumonia * Probably from a vasovagal episode * Telemonitor * EKG shows SR with BBB * Think that this is from the [facility], stated that she has only had one dose at home. however she
--- NOTE | 2021-08-07 09:00 | PM.IMPN ---
Progress Note: A&P Assessment and Plan (1) Bilateral cellulitis of lower leg: Code(s): L03.116 - Cellulitis of left lower limb; L03.115 - Cellulitis of right lower limb Status: Acute Assessment and Plan: restarted on vancomycin and Primaxin day 5 started mupirocin per wound nurses topical steroids for contact dermatitis started lower extremities are better today with reduced redness, warmth, and swelling Blood cultures are pending Wound consult Think that she would benefit from a wound care visit biweekly (2) Chronic anticoagulation: Code(s): Z79.01 - alf (current) use of anticoagulants Status: Acute Assessment and Plan: Continue with Xarelto. paroxysmal atrial fibrillation (3) Obstructive sleep apnea: Code(s): G47.33 - Obstructive sleep apnea (adult) (pediatric) Status: Acute Assessment and Plan: continue with CPAP settings that she uses at home. (4) Insulin dependent type 2 diabetes mellitus: Code(s): E11.9 - Type 2 diabetes mellitus without complications; Z79.4 - alf (current) use of insulin Status: Acute Assessment and Plan: Current glucose 307 Accu-Cheks a.c. and HS with sliding scale insulin Trend labs (5) Chronic obstructive pulmonary disease: Code(s): J44.9 - Chronic obstructive pulmonary disease, unspecified Status: Acute Assessment and Plan: Continue with home inhalers. (6) Congestive heart failure: Code(s): I50.9 - Heart failure, unspecified Status: Acute Assessment and Plan: Continue with Coreg and Entresto daily weights I/O strictly Continue PO lasix 20mg PO Q12hr continue with isosorbide Echo from EF 40-45% grade 2 diastolic dysfunction (7) Paroxysmal atrial fibrillation: Code(s): I48.0 - Paroxysmal atrial fibrillation Status: Acute Assessment and Plan: sinus rhythm at this time Continue Coreg. Continue with Xarelto (8) Hyperlipidemia LDL goal <100: Code(s): E78.5 - Hyperlipidemia, unspecified Status: Acute Assessment and Plan: Continue with atrial for a stat (9) Peripheral neuropathy: Qualifiers: Peripheral neuropathy type: polyneuropathy associated with underlying disease Qualified Code(s): G63 - Polyneuropathy in diseases classified elsewhere Code(s): G62.9 - Polyneuropathy, unspecified Status: Acute Assessment and Plan: Continue with gabapentin and hydrocodone. (10) Transaminitis: Code(s): R74.01 - Elevation of levels of liver transaminase levels Status: Acute Assessment and Plan: AST/ALT 106/146 Alk phos 211 Chronic findings as she has been worked up in the past Continue to trend (11) Acute metabolic encephalopathy: Code(s): G93.41 - Metabolic encephalopathy Status: Acute Assessment and Plan: seems to be resolved Episode of altered mental status with a syncopal like episode with hypotension Hypotension noted with a blood pressure in the 60s systolically IV fluid started Stroke not indicated Chest xray shows Right basilar airspace opacity, consistent with atelectasis versus pneumonia Probably from a vasovagal episode Telemonitor EKG shows SR with BBB Think that this is from the [facility], stated that she has only had one dose at home. however she responded to fluids (12) Lymph edema: Code(s): I89.0 - Lymphedema, not elsewhere classified Status: Acute Assessment and Plan: Kind of feel that this could be the reason for her repeat cellulitis Akin hose are on and in place Continue to monitor urine output and blood pressure (13) Depression with anxiety: Code(s): F41.8 - Other specified anxiety disorders Status: Acute Assessment and Plan: Worries about her family and home Counselling was given Start her on
[2021-08-07] MEDS: INSULIN GLARGINE (LANTUS) 1,000 UNITS/10 ML VIAL 30 UNITS SUB-Q (10:01)
[2021-08-07] MEDS: INSULIN ASPART (*BKC) 100 UNITS/ML SUB-Q ×2 (10:03→12:35)
[2021-08-07] MEDS: INSULIN ASPART (*BKC) 100 UNITS/ML 10 UNITS SUB-Q ×2 (10:03→12:34)
[2021-08-07] MEDS: carvediloL 6.25 MG TABLET PO ×2 (10:04→21:38)
[2021-08-07] MEDS: FAMOTIDINE 20 MG/2 ML VIAL IV PUSH ×2 (10:05→21:37)
[2021-08-07] MEDS: LORATADINE 10 MG TABLET PO (10:05)
[2021-08-07] MEDS: SIMETHICONE 80 MG TAB.CHEW PO (10:06)
[2021-08-07] MEDS: SACUBITRIL/VALSARTAN 49-51 MG TABLET 1 TABLET PO ×2 (10:06→21:37)
[2021-08-07] MEDS: FERROUS SULFATE 324 MG TABLET PO ×2 (10:06→17:20)
[2021-08-07] MEDS: ATORVASTATIN 40 MG TABLET PO (10:06)
[2021-08-07] MEDS: GABAPENTIN 100 MG CAPSULE PO ×3 (10:06→17:20)
[2021-08-07] MEDS: PREGABALIN (*CRX) 75 MG CAPSULE 150 MG PO ×2 (10:06→21:37)
[2021-08-07] MEDS: rOPINIRole HCL 1 MG TABLET 3 MG PO ×2 (10:07→21:37)
[2021-08-07] MEDS: MUPIROCIN 2% OINT 22 GM TUBE 1 APPLIC TOPICAL (10:07)
[2021-08-07] MEDS: TRIAMCINOLONE ACET 0.5% OINT 15 GM TUBE 1 APPLIC TOPICAL ×3 (10:07→17:20)
[2021-08-07 11:53] LABS: Glucose Point of Care 260 mg/dl (65-105)
[2021-08-07] MEDS: SERTRALINE HCL 50 MG TABLET PO (15:42)
[2021-08-07 16:40] LABS: Glucose Point of Care 126 mg/dl (65-105)
[2021-08-07] MEDS: RIVAROXABAN 20 MG TABLET PO (17:20)
[2021-08-07] MEDS: MELATONIN 5 MG TABLET PO (21:37)
[2021-08-07 22:33] LABS: Glucose Point of Care 254 mg/dl (65-105)
[2021-08-08] VITALS (7 sets, daily range): BP systolic 105–120; BP diastolic 56–65; PULSE 68–92; RESP 18–20; TEMP 36.1–36.6; O2SAT 96–100
[2021-08-08] MEDS: FUROSEMIDE 20 MG TABLET PO ×2 (05:49→17:21)
[2021-08-08 07:11] LABS: Basophils Absolute Auto 0.1 K/mm3 (0.0-0.1); Basophils Percent Auto 1.1 % (0.2-1.2); Eosinophils Absolute Auto 0.2 K/mm3 (0-0.3); Eosinophils Percent Auto 3.8 % (0-4.4); Hematocrit 41.7 % (37.0-47.0); Hemoglobin 13.8 g/dL (12.0-15.0); Immature Granulocyte Absolute 0.03 K/mm3 (0.00-0.031); Immature Granulocyte Percent A 0.5 % (0-0.5); Lymphocytes Absolute Auto 1.28 K/mm3 (0.9-3.2); Lymphocytes Percent Auto 23.2 % (18.3-44.2); Mean Corpuscular HGB Conc 33.1 g/dl (32-36); Mean Corpuscular Hemoglobin 29.5 pg (26-34); Mean Corpuscular Volume 89.1 fl (80-100); Mean Platelet Volume 10.7 fl (7.4-10.4); Monocytes Absolute Auto 0.6 K/mm3 (0.1-0.6); Monocytes Percent Auto 10.7 % (2.6-8.5); Neutrophils Absolute Auto 3.4 K/mm3 (1.3-6.7); Neutrophils Percent Auto 60.7 % (45.5-73.1); Platelet Count Result 190 k/mm3 (150-375); Red Blood Count 4.68 M/mm3 (4.2-5.4); Red Cell Distribution Width 13.5 % (11.5-14.5); White Blood Count 5.5 K/mm3 (4.5-10.0)
[2021-08-08 07:27] LABS: Alanine Aminotransferase 206 U/L (4-35); Albumin Level 3.9 g/dL (3.5-5.1); Alkaline Phosphatase 179 U/L (38-126); Anion Gap 2 mmol/L (8-16); Aspartate Amino Transferase 206 U/L (14-36); Bilirubin,Total 0.9 mg/dL (0.2-1.3); Blood Urea Nitrogen 18 mg/dL (7-17); Calcium 9.1 mg/dL (8.4-10.2); Carbon Dioxide 34 mmol/L (22-30); Chloride 99 mmol/L (98-107); Estimated CRCL calculation 85 ml/min; Estimated Glomerular Filt Rate > 60; Glucose 264 mg/dL (65-110); Potassium 3.6 mmol/L (3.4-5.0); Sodium 135 mmol/L (137-145)
[2021-08-08] MEDS: FLUTICASONE/SALMETEROL 115-21 MCG (*SP) INHALER 2 PUFF INHALATION ×2 (08:06→20:55)
[2021-08-08 08:11] LABS: Glucose Point of Care 239 mg/dl (65-105)
[2021-08-08] MEDS: rOPINIRole HCL 1 MG TABLET 3 MG PO ×2 (08:18→20:46)
[2021-08-08] MEDS: LORATADINE 10 MG TABLET PO (08:18)
[2021-08-08] MEDS: TRIAMCINOLONE ACET 0.5% OINT 15 GM TUBE 1 APPLIC TOPICAL ×3 (08:18→17:20)
[2021-08-08] MEDS: SACUBITRIL/VALSARTAN 49-51 MG TABLET 1 TABLET PO ×2 (08:19→20:45)
[2021-08-08] MEDS: carvediloL 6.25 MG TABLET PO ×2 (08:19→20:45)
[2021-08-08] MEDS: ATORVASTATIN 40 MG TABLET PO (08:20)
[2021-08-08] MEDS: FAMOTIDINE 20 MG/2 ML VIAL IV PUSH ×2 (08:20→20:47)
[2021-08-08] MEDS: FERROUS SULFATE 324 MG TABLET PO ×2 (08:20→17:20)
[2021-08-08] MEDS: GABAPENTIN 100 MG CAPSULE PO ×3 (08:20→17:20)
[2021-08-08] MEDS: MUPIROCIN 2% OINT 22 GM TUBE 1 APPLIC TOPICAL (08:20)
[2021-08-08] MEDS: SERTRALINE HCL 50 MG TABLET PO (08:20)
[2021-08-08] MEDS: PREGABALIN (*CRX) 75 MG CAPSULE 150 MG PO ×2 (08:23→20:44)
[2021-08-08] MEDS: INSULIN ASPART (*BKC) 100 UNITS/ML SUB-Q ×2 (08:24→17:19)
[2021-08-08] MEDS: INSULIN GLARGINE (LANTUS) 1,000 UNITS/10 ML VIAL 30 UNITS SUB-Q (08:24)
[2021-08-08] MEDS: INSULIN ASPART (*BKC) 100 UNITS/ML 10 UNITS SUB-Q ×2 (08:24→17:19)
[2021-08-08 08:51] LABS: Hemoglobin A1C 8.5 % (<5.7)
[2021-08-08 09:16] LABS: Glucose Point of Care 227 mg/dl (65-105)
--- NOTE | 2021-08-08 10:28 | P.PNIM_ITS ---
Progress Note: A&P Assessment and Plan (1) Bilateral cellulitis of lower leg: Code(s): L03.116 - Cellulitis of left lower limb; L03.115 - Cellulitis of right lower limb Status: Acute Assessment and Plan: * restarted on vancomycin and Primaxin day 6 * started mupirocin per wound nurses * topical steroids for contact dermatitis started * lower extremities are better today with reduced redness, warmth, and swelling * Blood cultures show NGTD * Wound consult * Think that she would benefit from lymph edema clinic (2) Chronic anticoagulation: Code(s): Z79.01 - half-way (current) use of anticoagulants Status: Acute Assessment and Plan: * Continue with Xarelto. * paroxysmal atrial fibrillation (3) Obstructive sleep apnea: Code(s): G47.33 - Obstructive sleep apnea (adult) (pediatric) Status: Acute Assessment and Plan: * continue with CPAP settings that she uses at home. (4) Insulin dependent type 2 diabetes mellitus: Code(s): E11.9 - Type 2 diabetes mellitus without complications; Z79.4 - half-way (current) use of insulin Status: Acute Assessment and Plan: Current glucose 264 A1c is 8.5 Accu-Cheks a.c. and HS with sliding scale insulin Trend labs She has an appointment with endocrine outpatient in the next week or two talked to Marta about her medications and she was going to talk to the MEDICAL RADIATION TECH there about orals or changing medications for better control (5) Chronic obstructive pulmonary disease: Code(s): J44.9 - Chronic obstructive pulmonary disease, unspecified Status: Acute Assessment and Plan: Continue with home inhalers. (6) Congestive heart failure: Code(s): I50.9 - Heart failure, unspecified Status: Acute Assessment and Plan: * Continue with Coreg and Entresto * Not in an acute exacerbation * daily weights * I/O strictly * Continue PO lasix 20mg PO Q12hr * Echo from EF 40-45% grade 2 diastolic dysfunction (7) Paroxysmal atrial fibrillation: Code(s): I48.0 - Paroxysmal atrial fibrillation Status: Acute Assessment and Plan: * sinus rhythm at this time * Continue Coreg. * Continue with Xarelto (8) Hyperlipidemia LDL goal <100: Code(s): E78.5 - Hyperlipidemia, unspecified Status: Acute Assessment and Plan: Continue with atrial for a stat (9) Peripheral neuropathy: Qualifiers: Peripheral neuropathy type: polyneuropathy associated with underlying disease Qualified Code(s): G63 - Polyneuropathy in diseases classified elsewhere Code(s): G62.9 - Polyneuropathy, unspecified Status: Acute Assessment and Plan: Continue with gabapentin and hydrocodone. (10) Transaminitis: Code(s): R74.01 - Elevation of levels of liver transaminase levels Status: Acute Assessment and Plan: * AST/ALT 206/206 Alk phos 179 * Chronic findings as she has been worked up in the past * Continue to trend (11) Acute metabolic encephalopathy: Code(s): G93.41 - Metabolic encephalopathy Status: Acute Assessment and Plan: * seems to be resolved * Episode of altered mental status with a syncopal like episode with hypotension * Hypotension noted with a blood pressure in the 60s systolically * IV fluid started * Stroke not indicated * Chest xray shows Right basilar airspace opacity, consistent wit
--- NOTE | 2021-08-08 10:28 | PM.IMPN ---
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 paroxysmal atrial fibrillation (3) Obstructive sleep apnea: Code(s): G47.33 - Obstructive sleep apnea (adult) (pediatric) Status: Acute Assessment and Plan: continue with CPAP settings that she uses at home. (4) Insulin dependent type 2 diabetes mellitus: Code(s): E11.9 - Type 2 diabetes mellitus without complications; Z79.4 - jail (current) use of insulin Status: Acute Assessment and Plan: Current glucose 264 A1c is 8.5 Accu-Cheks a.c. and HS with sliding scale insulin Trend labs She has an appointment with endocrine outpatient in the next week or two talked to Marta about her medications and she was going to talk to the CONVERTER OPERATOR there about orals or changing medications for better control (5) Chronic obstructive pulmonary disease: Code(s): J44.9 - Chronic obstructive pulmonary disease, unspecified Status: Acute Assessment and Plan: Continue with home inhalers. (6) Congestive heart failure: Code(s): I50.9 - Heart failure, unspecified Status: Acute Assessment and Plan: Continue with Coreg and Entresto Not in an acute exacerbation daily weights I/O strictly Continue PO lasix 20mg PO Q12hr Echo from EF 40-45% grade 2 diastolic dysfunction (7) Paroxysmal atrial fibrillation: Code(s): I48.0 - Paroxysmal atrial fibrillation Status: Acute Assessment and Plan: sinus rhythm at this time Continue Coreg. Continue with Xarelto (8) Hyperlipidemia LDL goal <100: Code(s): E78.5 - Hyperlipidemia, unspecified Status: Acute Assessment and Plan: Continue with atrial for a stat (9) Peripheral neuropathy: Qualifiers: Peripheral neuropathy type: polyneuropathy associated with underlying disease Qualified Code(s): G63 - Polyneuropathy in diseases classified elsewhere Code(s): G62.9 - Polyneuropathy, unspecified Status: Acute Assessment and Plan: Continue with gabapentin and hydrocodone. (10) Transaminitis: Code(s): R74.01 - Elevation of levels of liver transaminase levels Status: Acute Assessment and Plan: AST/ALT 206/206 Alk phos 179 Chronic findings as she has been worked up in the past Continue to trend (11) Acute metabolic encephalopathy: Code(s): G93.41 - Metabolic encephalopathy Status: Acute Assessment and Plan: seems to be resolved Episode of altered mental status with a syncopal like episode with hypotension Hypotension noted with a blood pressure in the 60s systolically IV fluid started Stroke not indicated Chest xray shows Right basilar airspace opacity, consistent with atelectasis versus pneumonia Probably from a vasovagal episode Telemonitor EKG shows SR with BBB Think that this is from the [facility], stated that she has only had one dose at home. however she responded to fluids (12) Lymph edema: Code(s): I89.0 - Lymphedema, not elsewhere classified Status: Acute Assessment and Plan: Kind of feel that this could be the reason for her repeat cellulitis Akin hose are on and in place Continue to monitor urine output and blood pressure
[2021-08-08 12:12] LABS: Glucose Point of Care 136 mg/dl (65-105)
[2021-08-08] MEDS: RIVAROXABAN 20 MG TABLET PO (17:21)
[2021-08-08 17:30] LABS: Glucose Point of Care 325 mg/dl (65-105)
[2021-08-08] MEDS: MELATONIN 5 MG TABLET PO (20:46)
--- NOTE | 2021-08-08 20:59 | PCRCNOTE ---
Pt states that she no longer uses her CPAP at home and does not want to wear here. There is no CPAP in her room.
[2021-08-08 21:38] LABS: Glucose Point of Care 230 mg/dl (65-105)
[2021-08-09] VITALS (13 sets, daily range): BP systolic 72–112; BP diastolic 42–89; PULSE 69–103; RESP 16–22; TEMP 36.2–36.7; O2SAT 94–100
[2021-08-09 02:44] LABS: Vancomycin Trough 28.4 ug/mL (10.0-20.0)
[2021-08-09] MEDS: FUROSEMIDE 20 MG TABLET PO (06:23)
[2021-08-09 08:05] LABS: Glucose Point of Care 185 mg/dl (65-105)
[2021-08-09] MEDS: INSULIN GLARGINE (LANTUS) 1,000 UNITS/10 ML VIAL 30 UNITS SUB-Q (08:50)
[2021-08-09] MEDS: INSULIN ASPART (*BKC) 100 UNITS/ML 10 UNITS SUB-Q ×2 (08:50→12:54)
[2021-08-09] MEDS: FAMOTIDINE 20 MG/2 ML VIAL IV PUSH (08:51)
[2021-08-09] MEDS: SACUBITRIL/VALSARTAN 49-51 MG TABLET 1 TABLET PO (08:52)
[2021-08-09] MEDS: LORATADINE 10 MG TABLET PO (08:52)
[2021-08-09] MEDS: PREGABALIN (*CRX) 75 MG CAPSULE 150 MG PO (08:52)
[2021-08-09] MEDS: rOPINIRole HCL 1 MG TABLET 3 MG PO (08:52)
[2021-08-09] MEDS: carvediloL 6.25 MG TABLET PO (08:53)
[2021-08-09] MEDS: ATORVASTATIN 40 MG TABLET PO (08:53)
[2021-08-09] MEDS: FERROUS SULFATE 324 MG TABLET PO (08:54)
[2021-08-09] MEDS: SERTRALINE HCL 50 MG TABLET PO (08:54)
[2021-08-09] MEDS: GABAPENTIN 100 MG CAPSULE PO ×2 (08:54→12:53)
[2021-08-09] MEDS: MUPIROCIN 2% OINT 22 GM TUBE 1 APPLIC TOPICAL (08:56)
[2021-08-09] MEDS: TRIAMCINOLONE ACET 0.5% OINT 15 GM TUBE 1 APPLIC TOPICAL ×2 (08:56→12:57)
[2021-08-09] MEDS: FLUTICASONE/SALMETEROL 115-21 MCG (*SP) INHALER 2 PUFF INHALATION (09:30)
--- NOTE | 2021-08-09 10:50 | P.DS_ITS ---
DS: Admitting Diagnosis Discharge Date 08/09/2021 Admitting Diagnosis Bilateral cellulitis of lower leg, chronic anticoagulation, [place], diabetes type 2 insulin dependent, COPD, CHF, paroxysmal AFib, hyperlipidemia, peripheral neuropathy, transaminitis, acute metabolic encephalopathy, depression with anxiety, lymph edema DS: Discharge Diagnosis Discharge Diagnosis (1) Bilateral cellulitis of lower leg: Code(s): L03.116 - Cellulitis of left lower limb; L03.115 - Cellulitis of right lower limb Status: Acute Assessment and Plan: * Received IV vancomycin and IV imipenem from August 04 to discharge on August 09 * started mupirocin per wound nurses * topical steroids for contact dermatitis started * lower extremities improved with reduced redness, warmth, and swelling and much less pain. 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 * paroxysmal atrial fibrillation * No chest pain or chest pressure, no shortness of breath or cough during exam (3) Obstructive sleep apnea: Code(s): G47.33 - Obstructive sleep apnea (adult) (pediatric) Status: Acute Assessment and Plan: * continue with CPAP settings that she uses at home. * No chest pain or chest pressure, no shortness of breath or cough during exam (4) Insulin dependent type 2 diabetes mellitus: Code(s): E11.9 - Type 2 diabetes mellitus without complications; Z79.4 - termite control technician (current) use of insulin Status: Acute Assessment and Plan: Today's glucose levels were 185, 201, 236, 101 A1c is 8.5 Return to her subcutaneous Lispro dosing t.i.d., Degludec SQ Qam, She has an appointment with corporate tax manager outpatient in the next week or two - she needs to keep that appointment. Patient educated about getting better control of her glucose levels and increasing her activity level throughout the day. She was instructed at discharge to check her glucose levels daily. home health nursing to follow up on her glucose levels and medication. (5) Chronic obstructive pulmonary disease: Code(s): J44.9 - Chronic obstructive pulmonary disease, unspecified Status: Acute Assessment and Plan: Continue with home inhalers. no shortness of breath or cough or wheezing or crackles during exam (6) Congestive heart failure: Code(s): I50.9 - Heart failure, unspecified Status: Acute Assessment and Plan: * Chronic. Controlled at this time. * Continue with Coreg and Entresto * Not in an acute exacerbation * daily weights * I/O strictly * Continue PO lasix 20mg PO Q12hr * Echo from EF 40-45% grade 2 diastolic dysfunction (7) Paroxysmal atrial fibrillation: Code(s): I48.0 - Paroxysmal atrial fibrillation Status: Acute Assessment and Plan: * sinus rhythm at this time * Continue Coreg. * Continue with Xarelto * Controlled , HR 73-90. (8) Hyperlipidemia LDL goal <100: Code(s): E78.5 - Hyperlipidemia, unspecified Status
--- NOTE | 2021-08-09 10:50 | PM.DS ---
DS: Admitting Diagnosis Discharge Date 08/09/2021 Admitting Diagnosis Bilateral cellulitis of lower leg, chronic anticoagulation, NICHOLE, diabetes type 2 insulin dependent, COPD, CHF, paroxysmal AFib, hyperlipidemia, peripheral neuropathy, transaminitis, acute metabolic encephalopathy, depression with anxiety, lymph edema DS: Discharge Diagnosis Discharge Diagnosis (1) Bilateral cellulitis of lower leg: Code(s): L03.116 - Cellulitis of left lower limb; L03.115 - Cellulitis of right lower limb Status: Acute Assessment and Plan: Received IV vancomycin and IV imipenem from August 04 to discharge on August 09 started mupirocin per wound nurses topical steroids for contact dermatitis started lower extremities improved with reduced redness, warmth, and swelling and much less pain. 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 paroxysmal atrial fibrillation No chest pain or chest pressure, no shortness of breath or cough during exam (3) Obstructive sleep apnea: Code(s): G47.33 - Obstructive sleep apnea (adult) (pediatric) Status: Acute Assessment and Plan: continue with CPAP settings that she uses at home. No chest pain or chest pressure, no shortness of breath or cough during exam (4) Insulin dependent type 2 diabetes mellitus: Code(s): E11.9 - Type 2 diabetes mellitus without complications; Z79.4 - long-term (current) use of insulin Status: Acute Assessment and Plan: Today's glucose levels were 185, 201, 236, 101 A1c is 8.5 Return to her subcutaneous Lispro dosing t.i.d., Degludec SQ Qam, She has an appointment with hand cloth examiner outpatient in the next week or two -she needs to keep that appointment. Patient educated about getting better control of her glucose levels and increasing her activity level throughout the day. She was instructed at discharge to check her glucose levels daily. home health nursing to follow up on her glucose levels and medication. (5) Chronic obstructive pulmonary disease: Code(s): J44.9 - Chronic obstructive pulmonary disease, unspecified Status: Acute Assessment and Plan: Continue with home inhalers. no shortness of breath or cough or wheezing or crackles during exam (6) Congestive heart failure: Code(s): I50.9 - Heart failure, unspecified Status: Acute Assessment and Plan: Chronic. Controlled at this time. Continue with Coreg and Entresto Not in an acute exacerbation daily weights I/O strictly Continue PO lasix 20mg PO Q12hr Echo from EF 40-45% grade 2 diastolic dysfunction (7) Paroxysmal atrial fibrillation: Code(s): I48.0 - Paroxysmal atrial fibrillation Status: Acute Assessment and Plan: sinus rhythm at this time Continue Coreg. Continue with Xarelto Controlled , HR 73-90. (8) Hyperlipidemia LDL goal <100: Code(s): E78.5 - Hyperlipidemia, unspecified Status: Acute Assessment and Plan: Continue with atorvastatin 40 mg daily Chronic and treated. (9) Peripheral neuropathy: Qualifiers: Peripheral neuropathy type: polyneuropathy associated with underlying disease Qualified Code(s): G63 - Polyneuropathy in diseases classified elsewhere Code(s): G62.9 - Polyneuropathy, unspecified Status: Acute Assessment and Plan: C
[2021-08-09 11:55] LABS: Glucose Point of Care 201 mg/dl (65-105)
[2021-08-09] MEDS: INSULIN ASPART (*BKC) 100 UNITS/ML SUB-Q (12:54)
[2021-08-09 12:56] LABS: Glucose Point of Care 236 mg/dl (65-105)
--- NOTE | 2021-08-09 14:31 | PCRCNOTE ---
HOME O2 EVAL DONE, NO HOME O2 NEEDED, RN NOTIFIED
[2021-08-09 17:12] LABS: Glucose Point of Care 101 mg/dl (65-105)
== END 2021-08-09 18:44 | disposition home health service (06) | DRG 603 ==
LOC: ANHED 17:26 → ANH3MEDSUR 18:42
PROVIDERS: Nurse Practitioner; Physician Assistant; Admitting Provider Hospitalist; Emergency Provider Emergency Medicine; PCP Internal Medicine; Visit Provider Nurse Practitioner
DX: L03.116 Cellulitis of left lower limb (principal); Z68.41 Body mass index [BMI] 40.0-44.9, adult; L03.115 Cellulitis of right lower limb; G47.33 Obstructive sleep apnea (adult) (pediatric); J44.9 Chronic obstructive pulmonary disease, unspecified; Z20.822 Contact with and (suspected) exposure to COVID-19; I11.0 Hypertensive heart disease with heart failure; I50.9 Heart failure, unspecified; E86.0 Dehydration; R55 Syncope and collapse; E78.5 Hyperlipidemia, unspecified; I89.0 Lymphedema, not elsewhere classified; I48.0 Paroxysmal atrial fibrillation; E11.42 Type 2 diabetes mellitus with diabetic polyneuropathy; D50.9 Iron deficiency anemia, unspecified; K21.9 Gastro-esophageal reflux disease without esophagitis; F41.8 Other specified anxiety disorders; F31.9 Bipolar disorder, unspecified; E66.01 Morbid (severe) obesity due to excess calories; G25.81 Restless legs syndrome; M06.9 Rheumatoid arthritis, unspecified; I25.10 Atherosclerotic heart disease of native coronary artery without angina pectoris; K57.90 Diverticulosis of intestine, part unspecified, without perforation or abscess without bleeding; K90.0 Celiac disease; I95.9 Hypotension, unspecified; Z96.651 Presence of right artificial knee joint; Z79.4 Long term (current) use of insulin; Z79.01 Long term (current) use of anticoagulants; Z86.73 Personal history of transient ischemic attack (TIA), and cerebral infarction without residual deficits; Z98.84 Bariatric surgery status; Z90.49 Acquired absence of other specified parts of digestive tract; Z90.710 Acquired absence of both cervix and uterus; Z87.442 Personal history of urinary calculi; L25.9 Unspecified contact dermatitis, unspecified cause; Z91.19 Patient's noncompliance with other medical treatment and regimen
CPT/HCPCS: 36415; 71045; 80048; 80053; 80202; 82728; 82948; 83036; 83605; 83735; 83880; 84439; 84443; 84480; 84484; 85025; 85380; 85610; 85652; 85730; 86140; 87040; 93005; 93970; 94618; 94640; 96365; 96366; 96367; 96368; 96375; 96376; 97161; 97165; 99285; A9270; C9803; G0378; J0743; J1815; J1885; J2060; J3370; J7120; U0003; U0005

== ENCOUNTER 2021-10-21 09:53 | Outpatient (CLI) | payer MEDICARE, SELFPAY ==
[2021-10-21 10:31] LABS: Alanine Aminotransferase 39 U/L (4-35); Albumin Level 4.1 g/dL (3.5-5.1); Alkaline Phosphatase 116 U/L (38-126); Anion Gap 7 mmol/L (8-16); Aspartate Amino Transferase 33 U/L (14-36); Bilirubin,Total 0.7 mg/dL (0.2-1.3); Blood Urea Nitrogen 19 mg/dL (7-17); Calcium 8.9 mg/dL (8.4-10.2); Carbon Dioxide 27 mmol/L (22-30); Chloride 103 mmol/L (98-107); Cholesterol 173 mg/dL (0-200); Estimated Glomerular Filt Rate > 60; Glucose 322 mg/dL (65-110); HDL Direct 64 mg/dL; Potassium 4.3 mmol/L (3.4-5.0); Sodium 137 mmol/L (137-145); Triglycerides 103 mg/dL (<150)
[2021-10-21 10:42] LABS: LDL Cholesterol Direct 82 mg/dL
[2021-10-21 10:48] LABS: Creatinine Urine 102.8 mg/dL
[2021-10-21 10:50] LABS: Free T4 Free Thyroxine 1.14 ng/mL (0.78-2.19); Vitamin D 25 Hydroxy 19.5 ng/mL
[2021-10-21 10:52] LABS: MALB Creatinine Ratio 10.7 mg/g (0-30)
== END 2021-10-21 09:54 | disposition home or self-care (01) ==
LOC: ANHLAB 09:56
PROVIDERS: PCP Internal Medicine; Visit Provider Nurse Practitioner Family
DX: E11.9 Type 2 diabetes mellitus without complications (principal); E66.01 Morbid (severe) obesity due to excess calories; E78.5 Hyperlipidemia, unspecified; G63 Polyneuropathy in diseases classified elsewhere; I10 Essential (primary) hypertension; Z68.42 Body mass index [BMI] 45.0-49.9, adult
CPT/HCPCS: 36415; 80053; 80061; 82043; 82306; 82607; 84439; 84443

== ENCOUNTER 2021-11-07 09:56 | Outpatient (CLI) | payer MEDICARE, SELFPAY ==
[2021-11-07 10:54] LABS: Iron 53 ug/dL (37-170); Percent Iron Saturation 13 % (20-50)
[2021-11-12 21:20] LABS: Mitochondrial (M2) Ab (IgG) <=20.0 U (<=20.0)
[2021-11-13 18:39] LABS: ALT 58 U/L (6-29); Alpha-2-Macroglobulin 235 mg/dL (106-279); Apolipoprotein A1 170 mg/dL (101-198); Fibrosis Score 0.23; Fibrosis Stage F0-F1; GGT 27 U/L (3-65); Haptoglobin 122 mg/dL (43-212); Necroinflammat Act Grade A1; Total Bilirubin 0.4 mg/dL (0.2-1.2)
[2021-11-14 23:02] LABS: Ceruloplasmin 40 mg/dL (18-53)
== END 2021-11-07 09:57 | disposition home or self-care (01) ==
LOC: ANHLAB 10:02
PROVIDERS: PCP Internal Medicine; Visit Provider Internal Medicine Gastroenterology
DX: R74.8 Abnormal levels of other serum enzymes (principal)
CPT/HCPCS: 36415; 81596; 82104; 82390; 82728; 83520; 83540; 83550; 86038

== ENCOUNTER 2022-01-22 13:19 | Emergency (ER) | payer MEDICARE, SELFPAY ==
--- NOTE | ~2022-01-22 | XR_ITS ---
EXAMINATION: XR chest 1V portable DATE: 01/22/2022 14:19 INDICATION: COPD. Shortness of breath. TECHNIQUE: Upright AP view of the chest was obtained. COMPARISON: Chest radiograph dated 03/25/2021 FINDINGS: Focal airspace opacity in the right upper lobe abutting the minor fissure which is concerning for pne umonia. No pulmonary edema, pleural effusion or pneumothorax. Cardiomediastinal silhouette is within normal limits for AP technique. Unchanged metallic foreign body projecting over the central heart. Ri ght with surgical history. IMPRESSION: 1. Right upper lobe pneumonia. Reviewed, dictated and finalized at location A.
[2022-01-22 13:19] VITALS: BP 149/77; PULSE 83; RESP 15; TEMP 36.6; O2SAT 97
--- NOTE | 2022-01-22 13:25 | ECG_ITS ---
Measurements Intervals [place] Rate: 78 P: 47 [place]: 198 QRS: 126 QRSD: 166 T: 31 QT: 407 QTc: 466 Interpretive Statements SINUS RHYTHM POSSIBLE LEFT ATRIAL ENLARGEMENT RIGHT BUNDLE BRANCH BLOCK LEFT POSTERIOR FASCICULAR BLOCK BASELINE ARTIFACT- I, III, AVR, AVL, AVF, V1-V6 ABNORMAL ECG Electronically Signed On 01-22-2022 22:35:03 CDT by Narinder Roche D.O.
[2022-01-22 13:29] VITALS: PULSE 87; O2SAT 97
[2022-01-22 13:33] LABS: Basophils Absolute Auto 0.1 K/mm3 (0.0-0.1); Eosinophils Absolute Auto 0.2 K/mm3 (0-0.3); Eosinophils Percent Auto 3.1 % (0-4.4); Hematocrit 40.8 % (37.0-47.0); Hemoglobin 13.2 g/dL (12.0-15.0); Immature Granulocyte Absolute 0.04 K/mm3 (0.00-0.031); Immature Granulocyte Percent A 0.6 % (0-0.5); Lymphocytes Absolute Auto 1.89 K/mm3 (0.9-3.2); Lymphocytes Percent Auto 27.9 % (18.3-44.2); Mean Corpuscular HGB Conc 32.4 g/dl (32-36); Mean Corpuscular Hemoglobin 27.8 pg (26-34); Mean Corpuscular Volume 85.9 fl (80-100); Mean Platelet Volume 10.5 fl (7.4-10.4); Monocytes Absolute Auto 0.7 K/mm3 (0.1-0.6); Monocytes Percent Auto 10.2 % (2.6-8.5); Neutrophils Absolute Auto 3.9 K/mm3 (1.3-6.7); Neutrophils Percent Auto 57.2 % (45.5-73.1); Platelet Count Result 195 k/mm3 (150-375); Red Blood Count 4.75 M/mm3 (4.2-5.4); Red Cell Distribution Width 13.4 % (11.5-14.5); White Blood Count 6.8 K/mm3 (4.5-10.0)
--- NOTE | 2022-01-22 13:39 | ED.GENADULT ---
HPI - General Adult General Chief complaint: Shortness of Breath/Dyspnea Stated complaint: SOB History of Present Illness HPI narrative: 66-year-old female with history of COPD with noted oxygen requirement presenting to the emergency department for evaluation of 1.5 weeks of cough and difficulty breathing. Patient states symptoms started last Thursday. Patient did do a COVID test on Thursday that was negative. Patient called EMS due to her symptoms upon arrival to the scene patient was saturating at 97% room air. Due to her wheezing and increased work of breathing patient was treated with albuterol and initially with Decadron. Patient reports he does have some chest wall pain with coughing. Patient reports she has had some episodes of emesis which she describes as posttussive emesis Related Data Home Medications Medication Instructions Recorded Confirmed albuterol sulfate 90 mcg/actuation 1 inh inhalation Q4H 01/21/21 01/09/22 aerosol inhaler (ProAir HFA) budesonide-formoterol HFA 160 2 puff inhalation Q12H 01/21/21 01/09/22 mcg-4.5 mcg/actuation aerosol inhaler (Symbicort) rivaroxaban 20 mg tablet (Xarelto) 20 mg PO DAILY 04/03/21 01/09/22 nitroglycerin 0.4 mg sublingual 0.4 mg sublingual Q5-15M PRN Chest 06/01/21 01/09/22 tablet (Nitrostat) Pain acetaminophen 500 mg tablet 500 mg PO Q6H PRN pain 08/21/21 01/09/22 (Tylenol Extra Strength) furosemide 40 mg tablet (Lasix) 40 mg PO DAILY 08/21/21 01/09/22 carvedilol 25 mg tablet 12.5 mg PO Q12H 09/25/21 01/09/22 cyclobenzaprine 10 mg tablet 10 mg PO DAILY PRN Muscle Spasm 09/25/21 01/09/22 atorvastatin 10 mg tablet 20 mg PO QHS 11/19/21 01/09/22 hydrocodone 7.5 mg-acetaminophen 1 tablet PO QHS PRN Pain 01/08/22 01/09/22 325 mg tablet Allergies Allergy/AdvReac Type Severity Reaction Status Date / Time cephalexin Allergy Unknown Diarrhea Verified 01/22/22 13:25 diphenhydramine Allergy Unknown JERKY/JUMPY, Verified 01/22/22 13:25 GO CRAZY IN MY SKIN latex Allergy Unknown Hives Verified 01/22/22 13:25 Penicillins Allergy Unknown Hives Verified 01/22/22 13:25 Review of Systems Review of Systems: CONSTITUTIONAL: Denies fever, chills, or sweats. EYES: Denies visual changes, redness, or discharge. ENT: Denies rhinorrhea, congestion, sore throat, or otalgia. CARDIOVASCULAR: Denies chest pain, palpitations, or edema. RESPIRATORY: Shortness of breath GASTROINTESTINAL: Denies abdominal pain, nausea, vomiting, or diarrhea. GENITOURINARY: Denies dysuria or hematuria. SKIN: Denies rash or itching. MUSCULOSKELETAL: Denies back pain, joint pain, or myalgia. NEUROLOGIC: Denies headache, numbness, or weakness. PSYCHIATRIC: Denies anxiety or depression. [facility] Past Medical History Medical History Anisocoria Asthma Asthma Bipolar disorder Body mass index (BMI) 35 or more (10/25/18) Celiac disease Chronic anticoagulation On Xarelto for paroxysmal atrial fibrillation/flutter. Chronic obstructive pulmonary disease Colon cancer screening Coronary artery disease Diffuse severe LAD disease with positive IFR and moderate RCA disease noted on cardiac catheterization in 2019. Managed medically. De Quervain's tenosynovitis Diabetic peripheral neuropathy Diverticulosis Elevated liver enzymes Gastroesophageal reflux disease Heart failure with reduced ejection fraction Follows with [facility]iology and Dr. Mishra. EF was 50% following MitraClip in 2019 though was her most recent ejection fraction was 20 to 25% in November 2020. Hyperlipidemia Hypersomnia Hypertension Hypothyroidism Insulin dependent type 2 diabetes mellitus Hemoglobin A1c was 8.5% on 05/16/2021. Iron deficiency anemia With history of blood transfusion. 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
[2022-01-22 13:46] VITALS: PULSE 77; RESP 14
[2022-01-22] MEDS: ALBUTEROL SULFATE NEB 2.5 MG/3 ML INH 5 MG INHALATION (13:46)
[2022-01-22] MEDS: BENZONATATE 100 MG CAPSULE 200 MG PO (13:50)
[2022-01-22] MEDS: ACETAMINOPHEN/CODEINE (*CRX) 300/30 MG TABLET 1 TAB PO (13:50)
[2022-01-22 14:02] VITALS: PULSE 74; RESP 18
[2022-01-22 14:13] LABS: Alanine Aminotransferase 40 U/L (6-35); Albumin Level 3.7 g/dL (3.5-5.1); Alkaline Phosphatase 134 U/L (38-126); Anion Gap 4 mmol/L (8-16); Aspartate Amino Transferase 29 U/L (14-36); Bilirubin,Total 0.3 mg/dL (0.2-1.3); Blood Urea Nitrogen 21 mg/dL (7-17); Calcium 8.9 mg/dL (8.4-10.2); Carbon Dioxide 26 mmol/L (22-30); Chloride 108 mmol/L (98-107); Estimated CRCL calculation 101 ml/min; Estimated Glomerular Filt Rate > 60; Glucose 140 mg/dL (65-110); Potassium 4.1 mmol/L (3.4-5.0); Sodium 138 mmol/L (137-145)
[2022-01-22 14:22] LABS: SARS-CoV-2 RNA PCR Negative
[2022-01-22] MEDS: PANTOPRAZOLE SODIUM IV 40 MG VIAL IV PUSH (14:57)
[2022-01-22 14:58] VITALS: BP 135/68; PULSE 80; RESP 13; O2SAT 98
[2022-01-22] MEDS: DOXYCYCLINE HYCLATE 100 MG TABLET PO (15:03)
--- NOTE | 2022-01-22 15:29 | ECG_ITS ---
Measurements Intervals [place] Rate: 80 P: 50 [place]: 197 QRS: 147 QRSD: 161 T: 22 QT: 427 QTc: 494 Interpretive Statements SINUS RHYTHM POSSIBLE LEFT ATRIAL ENLARGEMENT RIGHT BUNDLE BRANCH BLOCK BASELINE ARTIFACT- I, II, III, AVR, AVL, AVF, V1-V6 ABNORMAL ECG Electronically Signed On 01-24-2022 16:40:45 CDT by Narinder Roche D.O.
[2022-01-22 15:51] LABS: Troponin I < 0.012 ng/mL (0.000-0.034)
[2022-01-22 15:59] LABS: Troponin I < 0.012 ng/mL (0.000-0.034)
[2022-01-22 16:13] VITALS: BP 119/67; PULSE 85; RESP 20; O2SAT 97
== END 2022-01-22 16:14 | disposition home or self-care (01) ==
PROVIDERS: Emergency Provider Emergency Medicine; PCP Family Medicine
DX: J18.9 Pneumonia, unspecified organism (principal); Z20.822 Contact with and (suspected) exposure to COVID-19; J45.909 Unspecified asthma, uncomplicated; F31.9 Bipolar disorder, unspecified; Z79.01 Long term (current) use of anticoagulants; I25.10 Atherosclerotic heart disease of native coronary artery without angina pectoris; K21.9 Gastro-esophageal reflux disease without esophagitis; K57.90 Diverticulosis of intestine, part unspecified, without perforation or abscess without bleeding; E11.40 Type 2 diabetes mellitus with diabetic neuropathy, unspecified; I11.0 Hypertensive heart disease with heart failure; I50.9 Heart failure, unspecified; E78.5 Hyperlipidemia, unspecified; E03.9 Hypothyroidism, unspecified; Z79.4 Long term (current) use of insulin; Z87.442 Personal history of urinary calculi; I48.91 Unspecified atrial fibrillation
CPT/HCPCS: 36415; 71045; 80053; 84484; 85025; 93005; 94640; 96374; 99284; A9270; C9113; C9803; U0003; U0005

== ENCOUNTER 2022-02-07 13:24 | Emergency (ER) | payer MEDICARE, SELFPAY ==
--- NOTE | 2022-02-07 13:28 | ED.URI ---
HPI - URI/Sore Throat General Chief Complaint: Upper Respiratory Infection Stated Complaint: shortness of breath Time Seen by Provider: 02/07/22 13:29 Source: patient Mode of arrival: ambulatory Limitations: no limitations History of Present Illness HPI Narrative: Ms. Chen is a 66-year-old female patient presenting to the clinic today with complaints of shortness of breath x2 to 3 days She reports she has a productive cough with green and yellow discharge. History of asthma and COPD. Reports she was seen in the hospital approximately 2 weeks ago and given a prescription for some doxycycline, Robitussin with codeine, and Tessalon Perles. States that her symptoms improved after taking doxycycline however they have gotten worse again over the last 2 to 3 days. She reports that she has inhalers and nebulizer treatments at home. Her oxygen saturation is 98% on room air. She does not wear home O2. She denies any known COVID exposure. She denies any fever or chills. MD elicited complaint: sore throat and nasal congestion Related Data Home Medications Medication Instructions Recorded Confirmed rivaroxaban 20 mg tablet (Xarelto) 20 mg PO DAILY 04/03/21 01/09/22 nitroglycerin 0.4 mg sublingual 0.4 mg sublingual Q5-15M PRN Chest 06/01/21 01/09/22 tablet (Nitrostat) Pain acetaminophen 500 mg tablet 500 mg PO Q6H PRN pain 08/21/21 01/09/22 (Tylenol Extra Strength) furosemide 40 mg tablet (Lasix) 40 mg PO DAILY 08/21/21 01/09/22 carvedilol 25 mg tablet 12.5 mg PO Q12H 09/25/21 01/09/22 cyclobenzaprine 10 mg tablet 10 mg PO DAILY PRN Muscle Spasm 09/25/21 01/09/22 atorvastatin 10 mg tablet 20 mg PO QHS 11/19/21 01/09/22 hydrocodone 7.5 mg-acetaminophen 1 tablet PO QHS PRN Pain 01/08/22 01/09/22 325 mg tablet albuterol sulfate 2.5 mg/3 mL 2.5 mg inhalation Q4H PRN 01/29/22 (0.083 %) solution for nebulization Allergies Allergy/AdvReac Type Severity Reaction Status Date / Time cephalexin Allergy Unknown Diarrhea Verified 01/22/22 13:25 diphenhydramine Allergy Unknown JERKY/JUMPY, Verified 01/22/22 13:25 GO CRAZY IN MY SKIN latex Allergy Unknown Hives Verified 01/22/22 13:25 Penicillins Allergy Unknown Hives Verified 01/22/22 13:25 Review of Systems Review of Systems: Pertinent positives per HPI. Patient denies any fever, chills, rash, headache, visual changes, dizziness, chest pain, palpitations, nausea, vomiting, diarrhea, constipation, abdominal pain, or any urinary issues. ON LICENSE OF [facility] Past Medical History Medical History Anisocoria Asthma Asthma Bipolar disorder Body mass index (BMI) 35 or more (10/25/18) Celiac disease Chronic anticoagulation On Xarelto for paroxysmal atrial fibrillation/flutter. Chronic obstructive pulmonary disease Colon cancer screening Coronary artery disease Diffuse severe LAD disease with positive IFR and moderate RCA disease noted on cardiac catheterization in 2019. Managed medically. De Quervain's tenosynovitis Diabetic peripheral neuropathy Diverticulosis Elevated liver enzymes Gastroesophageal reflux disease Heart failure with reduced ejection fraction Follows with [facility]iology and Dr. Mishra. EF was 50% following MitraClip in 2019 though was her most recent ejection fraction was 20 to 25% in November 2020. Hyperlipidemia Hypersomnia Hypertension Hypothyroidism Insulin dependent type 2 diabetes mellitus Hemoglobin A1c was 8.5% on 05/16/2021. Iron deficiency anemia With history of blood transfusion. 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 Obesity, morbid, BMI 40.0-49.9 Obstructive sleep apnea Paroxysmal atrial fibrillation Paroxysmal atrial flutter Regurgitation of stomach contents Restless leg syndrome Rheumatoid arthritis Severe mitral valve regu
[2022-02-07 13:34] VITALS: BP 132/68; PULSE 86; RESP 16; TEMP 36.6; O2SAT 98
[2022-02-07 14:01] VITALS: BP 132/68; PULSE 86; RESP 16; TEMP 36.6; O2SAT 98
== END 2022-02-07 13:50 | disposition home or self-care (01) ==
PROVIDERS: Emergency Provider Nurse Practitioner Family; PCP Family Medicine
DX: J44.1 Chronic obstructive pulmonary disease with (acute) exacerbation (principal); I25.10 Atherosclerotic heart disease of native coronary artery without angina pectoris; E11.42 Type 2 diabetes mellitus with diabetic polyneuropathy; K21.9 Gastro-esophageal reflux disease without esophagitis; I11.0 Hypertensive heart disease with heart failure; I50.9 Heart failure, unspecified; Z79.4 Long term (current) use of insulin; E66.01 Morbid (severe) obesity due to excess calories; Z68.41 Body mass index [BMI] 40.0-44.9, adult; G25.81 Restless legs syndrome; M06.9 Rheumatoid arthritis, unspecified; Z86.73 Personal history of transient ischemic attack (TIA), and cerebral infarction without residual deficits; Z98.84 Bariatric surgery status
CPT/HCPCS: 99213; G0463

== ENCOUNTER 2022-02-09 01:27 | Observation (INO) | payer MEDICARE, SELFPAY ==
[2022-02-09] VITALS (27 sets, daily range): BP systolic 139–166; BP diastolic 71–85; PULSE 61–95; RESP 14–24; TEMP 36.4–37.1; O2SAT 92–99; BMI 41.7
--- NOTE | ~2022-02-09 | XR_ITS ---
XR chest 1V portable DATE: 02/09/2022 03:57 INDICATION: Shortness of breath, cough TECHNIQUE: Portable upright AP chest on 02/09/2022 at 0353 hours COMPARISON: 01/22/2022 portable upright AP chest at 1416 hours FINDINGS: Normal heart size. Mild aortic unfolding. No pulmonary infiltrate or consolidation, pleural effusion or pulmonary vascular congestion or pneumo thorax. IMPRESSION: No active cardiopulmonary disease Reviewed, dictated and finalized at location A.
--- NOTE | 2022-02-09 01:31 | ECG_ITS ---
Measurements Intervals [place] Rate: 89 P: 50 [place]: 204 QRS: 135 QRSD: 176 T: 23 QT: 398 QTc: 485 Interpretive Statements SINUS RHYTHM POSSIBLE LEFT ATRIAL ENLARGEMENT [-0.1mV P WAVE IN V1/V2] MARKED RIGHT AXIS DEVIATION [QRS AXIS > 100] RIGHT BUNDLE BRANCH BLOCK [120+ ms QRS DURATION, UPRIGHT V1, 40+ ms S IN I/aVL/V4/V5/V6] COMPARED TO ECG 01/22/2022 15:29:49 NO SIGNIFICANT CHANGES Electronically Signed On 02-09-2022 8:26:12 CDT by Tone Mishra M.D.
--- NOTE | 2022-02-09 01:35 | ED.GENADULT ---
HPI - General Adult General Chief complaint: Shortness of Breath/Dyspnea Stated complaint: shortness of breath Time Seen by Provider: 02/09/22 01:34 History of Present Illness HPI narrative: This is a 67-year-old female with a history of COPD, congestive heart failure and diabetes presenting ED with dyspnea. Patient says she has been having steadily increasing shortness of breath over the last 2 weeks. She says is increased associated with increased mucus production. The patient was seen at the [facility] on Thursday where she was treated for COPD exacerbation with inhalers and a course of steroids. Since then her condition has continued to worsen. She is now complaining of fever and chills. She denies chest pain. She denies significant leg swelling although she says her legs are always swollen. Related Data Home Medications Medication Instructions Recorded Confirmed rivaroxaban 20 mg tablet (Xarelto) 20 mg PO DAILY 04/03/21 01/09/22 nitroglycerin 0.4 mg sublingual 0.4 mg sublingual Q5-15M PRN Chest 06/01/21 01/09/22 tablet (Nitrostat) Pain acetaminophen 500 mg tablet 500 mg PO Q6H PRN pain 08/21/21 01/09/22 (Tylenol Extra Strength) furosemide 40 mg tablet (Lasix) 40 mg PO DAILY 08/21/21 01/09/22 carvedilol 25 mg tablet 12.5 mg PO Q12H 09/25/21 01/09/22 cyclobenzaprine 10 mg tablet 10 mg PO DAILY PRN Muscle Spasm 09/25/21 01/09/22 atorvastatin 10 mg tablet 20 mg PO QHS 11/19/21 01/09/22 hydrocodone 7.5 mg-acetaminophen 1 tablet PO QHS PRN Pain 01/08/22 01/09/22 325 mg tablet albuterol sulfate 2.5 mg/3 mL 2.5 mg inhalation Q4H PRN 01/29/22 (0.083 %) solution for nebulization Shortness Of Breath Or Wheezing Allergies Allergy/AdvReac Type Severity Reaction Status Date / Time cephalexin Allergy Unknown Diarrhea Verified 02/09/22 01:31 diphenhydramine Allergy Unknown JERKY/JUMPY, Verified 02/09/22 01:31 GO CRAZY IN MY SKIN latex Allergy Unknown Hives Verified 02/09/22 01:31 Penicillins Allergy Unknown Hives Verified 02/09/22 01:31 Review of Systems Review of Systems: CONSTITUTIONAL: Denies night sweats. EYES: No eye pain ENT: Denies rhinorrhea CARDIOVASCULAR: Denies palpitations RESPIRATORY: Denies hemoptysis GASTROINTESTINAL: Denies hematemesis GENITOURINARY: Denies hematuria. SKIN: Denies rash MUSCULOSKELETAL: Denies myalgia. NEUROLOGIC: Denies weakness. PSYCHIATRIC: Denies delusions [facility] Past Medical History Medical History Anisocoria Asthma Asthma Bipolar disorder Body mass index (BMI) 35 or more (10/25/18) Celiac disease Chronic anticoagulation On Xarelto for paroxysmal atrial fibrillation/flutter. Chronic obstructive pulmonary disease Colon cancer screening Coronary artery disease Diffuse severe LAD disease with positive IFR and moderate RCA disease noted on cardiac catheterization in 2019. Managed medically. De Quervain's tenosynovitis Diabetic peripheral neuropathy Diverticulosis Elevated liver enzymes Gastroesophageal reflux disease Heart failure with reduced ejection fraction Follows with [facility] Cardiology and Dr. Mishra. EF was 50% following MitraClip in 2019 though was her most recent ejection fraction was 20 to 25% in November 2020. Hyperlipidemia Hypersomnia Hypertension Hypothyroidism Insulin dependent type 2 diabetes mellitus Hemoglobin A1c was 8.5% on 05/16/2021. Iron deficiency anemia With history of blood transfusion. 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 Obesity, morbid, BMI 40.0-49.9 Obstructive sleep apnea Paroxysmal atrial fibrillation Paroxysmal atrial flutter Regurgitation of stomach contents Restless leg syndrome Rheumatoid arthritis Severe mitral valve regurgitation Status post MitraClip in 2019. Thyroid disease
[2022-02-09] MEDS: MAGNESIUM SULF 2 GM/WATER 50ML 2 GM/50 ML BAG IVPB (01:58)
[2022-02-09] MEDS: methylPREDNISolone SOD SUCC 125 MG VIAL 40 MG IV PUSH (01:58)
[2022-02-09 02:06] LABS: Basophils Percent Auto 0.4 % (0.2-1.2); Eosinophils Percent Auto 0.1 % (0-4.4); Hematocrit 43.6 % (37.0-47.0); Hemoglobin 13.5 g/dL (12.0-15.0); Immature Granulocyte Absolute 0.05 K/mm3 (0.00-0.031); Immature Granulocyte Percent A 0.7 % (0-0.5); Lymphocytes Absolute Auto 0.68 K/mm3 (0.9-3.2); Mean Corpuscular Hemoglobin 27.1 pg (26-34); Mean Corpuscular Volume 87.4 fl (80-100); Mean Platelet Volume 11.2 fl (7.4-10.4); Monocytes Absolute Auto 0.3 K/mm3 (0.1-0.6); Monocytes Percent Auto 4.4 % (2.6-8.5); Neutrophils Absolute Auto 5.7 K/mm3 (1.3-6.7); Neutrophils Percent Auto 84.4 % (45.5-73.1); Platelet Count Result 180 k/mm3 (150-375); Red Blood Count 4.99 M/mm3 (4.2-5.4); Red Cell Distribution Width 13.5 % (11.5-14.5); White Blood Count 6.8 K/mm3 (4.5-10.0)
[2022-02-09] MEDS: IPRATROPIUM BR 0.02% INH SOLN 0.5 MG/2.5 ML VIAL INHALATION ×4 (02:22→20:31)
[2022-02-09] MEDS: ALBUTEROL SULFATE NEB 2.5 MG/3 ML INH 5 MG INHALATION ×7 (02:22→20:31)
[2022-02-09 02:36] LABS: Anion Gap 8 mmol/L (8-16); Blood Urea Nitrogen 19 mg/dL (7-17); Calcium 9.1 mg/dL (8.4-10.2); Carbon Dioxide 26 mmol/L (22-30); Chloride 102 mmol/L (98-107); Estimated CRCL calculation 101 ml/min; Estimated Glomerular Filt Rate > 60; Glucose 394 mg/dL (65-110); Potassium 4.4 mmol/L (3.4-5.0); Sodium 136 mmol/L (137-145)
[2022-02-09 02:46] LABS: SARS-CoV-2 RNA PCR Negative
[2022-02-09 02:49] LABS: NT Pro B Type Natriuretic Pept 501 pg/mL (5-100); Troponin I < 0.012 ng/mL (0.000-0.034)
[2022-02-09 03:50] LABS: Alveolar/Arterial O2 Gradient 196.1 mmHg; Base Excess ABG 2.6 mEq/l (+/-2.0); Fractional Inspired Oxygen 60 %; HCO3 ABG 27.9 mEq/l (22.0-26.0); Oxygen Content ABG 20.1 %vol (16.0-22.0); Oxygen Saturation ABG 99.3 % (95.0-100.0); PCO2 ABG 45.2 mmHg (35.0-45.0); PO2 FiO2 Ratio Arterial Blood 3.03 %; Total Hemoglobin 14.3 g/dL (12.0-18.0); pH ABG 7.408 (7.350-7.450)
[2022-02-09 03:56] LABS: Device SIMPLE MASK; Modified Allen's Test Pass; Site Drawn LEFT RADIAL
[2022-02-09 05:41] LABS: Troponin I < 0.012 ng/mL (0.000-0.034)
--- NOTE | 2022-02-09 06:35 | ADMGEN ---
This patient, Charlene Chen, was admitted to Medical Room 249-01. Patient/family oriented to hospital policies and general routines including ID bracelet, bed and alarms, visiting hours, pain management, procedures, bathroom and other care routines, personal items, smoking policy, room service/diet, and visiting hours. Information on how to activate the Rapid Response Team has been discussed. Patient/Family are encouraged to report perceived risks to care and to ask questions if they do not understand what they are told or what they should do.
[2022-02-09 08:07] LABS: Glucose Point of Care 382 mg/dl (65-105)
[2022-02-09] MEDS: INSULIN ASPART (*BKC) 100 UNITS/ML SUB-Q ×3 (09:01→17:36)
--- NOTE | 2022-02-09 09:27 | PM.IMHP ---
H&P: HPI History of Present Illness Date/Time: 02/09/22 09:27 Chief Complaint: shortness of breath Narrative: 67 years old female with history of COPD, history of congestive heart failure and diabetes was admitted with complaint of having shortness of breath going on for the last 2 weeks. Patient went to the [facility] urgent care on Thursday and was given breathing treatment and steroids. According to the patient after taking medicine she did not get better. She continued to have shortness of breath. She also started having mucus production. He also started having low-grade fever. In the emergency room patient was given breathing treatment steroid and was transferred to medical floor for further evaluation treatment. At present the floor patient has mild shortness of breath. Patient denies any chest pain. Patient denies any abdominal pain, nausea and vomiting. Patient says she is feeling slightly better after the treatment in emergency room. No swelling in the lower extremity. Review of Systems Review of Systems: All systems reviewed & are unremarkable except as noted in HPI and below ( the history and physical examination.) [facility] Past Medical History Medical History (Updated 02/09/22 @ 09:36 by Vinicio Andrew MD) Anisocoria Asthma Asthma Bipolar disorder Body mass index (BMI) 35 or more (10/25/18) Celiac disease Chronic anticoagulation On Xarelto for paroxysmal atrial fibrillation/flutter. Chronic obstructive pulmonary disease Colon cancer screening Coronary artery disease Diffuse severe LAD disease with positive IFR and moderate RCA disease noted on cardiac catheterization in 2019. Managed medically. De Quervain's tenosynovitis Diabetic peripheral neuropathy Diverticulosis Elevated liver enzymes Gastroesophageal reflux disease Heart failure with reduced ejection fraction Follows with [facility] Cardiology and Dr. Mishra. EF was 50% following MitraClip in 2019 though was her most recent ejection fraction was 20 to 25% in November 2020. Hyperlipidemia Hypersomnia Hypertension Hypothyroidism Insulin dependent type 2 diabetes mellitus Hemoglobin A1c was 8.5% on 05/16/2021. Iron deficiency anemia With history of blood transfusion. Irritable bowel syndrome with diarrhea Kidney stones longterm (current) use of insulin Morbid obesity Status post gastric bypass surgery in September 2002 with a preoperative weight of 280 lb. Obesity, morbid, BMI 40.0-49.9 Obstructive sleep apnea Paroxysmal atrial fibrillation Paroxysmal atrial flutter Regurgitation of stomach contents Restless leg syndrome Rheumatoid arthritis Severe mitral valve regurgitation Status post MitraClip in 2019. Thyroid disease Patient no longer takes thyroid medicine. Transient ischemic attack Trigger ring finger of right hand Type 2 diabetes mellitus with hyperglycemia Urinary incontinence Surgical History Surgical History Gastric bypass status for obesity (09/2002) H/O section History of bilateral carpal tunnel release History of bladder surgery Insertion of bladder stimulator for urinary incontinence. History of cholecystectomy History of cystoscopy History of esophagogastroduodenoscopy (EGD) History of hysterectomy History of lithotripsy History of right knee joint replacement (2008) Multiple kidney stones Surgery X2 Family History Family History Father Diabetes mellitus Acute myocardial infarction Mother CHF (congestive heart failure) Family history of peptic ulcer Family history of chronic obstructive pulmonary disease, Onset Age: 92 Cerebrovascular accident Family history of arthritis Family history of cardiovascular disease Daughter Cancer Sibling Family history of cardiovascular disease Diabetes mellitus Sibling Diabetes mellitus Daughter Daughter
[2022-02-09] MEDS: carvediloL 12.5 MG TABLET PO ×2 (11:32→20:06)
[2022-02-09] MEDS: SACUBITRIL/VALSARTAN 49-51 MG TABLET 1 TABLET PO ×2 (11:32→20:06)
[2022-02-09] MEDS: buPROPion HCL XL (24 HR) 150 MG TABCR PO (11:34)
[2022-02-09] MEDS: FUROSEMIDE 40 MG TABLET PO (11:34)
[2022-02-09] MEDS: SERTRALINE HCL 50 MG TABLET 150 MG PO (11:34)
[2022-02-09] MEDS: BENZONATATE 100 MG CAPSULE PO ×2 (11:34→23:12)
[2022-02-09] MEDS: FERROUS SULFATE 324 MG TABLET PO (11:34)
[2022-02-09] MEDS: AZITHROMYCIN 250 MG TABLET PO (11:35)
[2022-02-09] MEDS: methylPREDNISolone SOD SUCC 125 MG VIAL 60 MG IV PUSH ×3 (11:40→23:12)
[2022-02-09] MEDS: PREGABALIN (*CRX) 75 MG CAPSULE 150 MG PO ×2 (11:40→20:06)
--- NOTE | 2022-02-09 12:26 | PC.NURSE ---
glucometer failed to upload. blood sugar manually verified. 1155- blood sugar 276 mg/dL
[2022-02-09 12:31] LABS: Glucose Point of Care 276 mg/dl (65-105)
[2022-02-09] MEDS: INSULIN ASPART (*BKC) 100 UNITS/ML 6 UNITS SUB-Q ×2 (12:33→17:37)
[2022-02-09] MEDS: FLUTICASONE/SALMETEROL 115-21 MCG INHALER 1 PUFF 2 PUFF INHALATION ×2 (13:45→20:31)
[2022-02-09] MEDS: RIVAROXABAN 20 MG TABLET PO (17:31)
[2022-02-09 17:33] LABS: Glucose Point of Care 280 mg/dl (65-105)
[2022-02-09] MEDS: ATORVASTATIN 20 MG TABLET PO (20:05)
[2022-02-09 20:06] LABS: Glucose Point of Care 481 mg/dl (65-105)
[2022-02-09] MEDS: rOPINIRole HCL 1 MG TABLET 3 MG PO (20:06)
[2022-02-09] MEDS: MELATONIN 5 MG TABLET PO (20:06)
[2022-02-09] MEDS: INSULIN ASPART (*BKC) 100 UNITS/ML 12 UNITS SUB-Q (21:06)
[2022-02-10] VITALS (15 sets, daily range): BP systolic 151–167; BP diastolic 68–86; PULSE 56–87; RESP 12–18; TEMP 36.2–36.5; O2SAT 90–100
[2022-02-10] MEDS: IPRATROPIUM BR 0.02% INH SOLN 0.5 MG/2.5 ML VIAL INHALATION ×3 (03:32→13:33)
[2022-02-10] MEDS: ALBUTEROL SULFATE NEB 2.5 MG/3 ML INH 5 MG INHALATION ×2 (03:33→08:02)
[2022-02-10] MEDS: methylPREDNISolone SOD SUCC 125 MG VIAL 60 MG IV PUSH (05:45)
[2022-02-10] MEDS: FLUTICASONE/SALMETEROL 115-21 MCG INHALER 1 PUFF 2 PUFF INHALATION (08:03)
[2022-02-10 08:11] LABS: Glucose Point of Care 271 mg/dl (65-105)
[2022-02-10] MEDS: PREGABALIN (*CRX) 75 MG CAPSULE 150 MG PO (08:34)
[2022-02-10] MEDS: SERTRALINE HCL 50 MG TABLET 150 MG PO (08:35)
[2022-02-10] MEDS: SACUBITRIL/VALSARTAN 49-51 MG TABLET 1 TABLET PO (08:35)
[2022-02-10] MEDS: FERROUS SULFATE 324 MG TABLET PO (08:35)
[2022-02-10] MEDS: buPROPion HCL XL (24 HR) 150 MG TABCR PO (08:35)
[2022-02-10] MEDS: INSULIN GLARGINE (*BKC) 100 UNITS/ML 18 UNITS SUB-Q (08:36)
[2022-02-10] MEDS: carvediloL 12.5 MG TABLET PO (08:36)
[2022-02-10] MEDS: FUROSEMIDE 40 MG TABLET PO (08:36)
[2022-02-10] MEDS: INSULIN ASPART (*BKC) 100 UNITS/ML SUB-Q (08:37)
[2022-02-10] MEDS: INSULIN ASPART (*BKC) 100 UNITS/ML 6 UNITS SUB-Q ×2 (08:37→12:24)
[2022-02-10] MEDS: AZITHROMYCIN 250 MG TABLET PO (08:38)
[2022-02-10] MEDS: BENZONATATE 100 MG CAPSULE PO (08:39)
--- NOTE | 2022-02-10 11:44 | PCRCNOTE ---
Home eval completed. Patient does not require Home O2 at this time. RN notified.
--- NOTE | 2022-02-10 12:04 | PM.DS ---
DS: Admitting Diagnosis Discharge Date 02/10/22 Admitting Diagnosis Short of breath DS: Discharge Diagnosis Discharge Diagnosis (1) Acute exacerbation of chronic obstructive pulmonary disease (COPD): Code(s): J44.1 - Chronic obstructive pulmonary disease with (acute) exacerbation Status: Acute (2) History of congestive heart failure: Code(s): Z86.79 - Personal history of other diseases of the circulatory system Status: Acute (3) Diabetes mellitus with neurologic complication, with long-term current use of insulin: Qualifiers: Diabetes mellitus type: type 2 Diabetes mellitus complication detail: with polyneuropathy Qualified Code(s): E11.42 - Type 2 diabetes mellitus with diabetic polyneuropathy; Z79.4 - long-term (current) use of insulin Code(s): E11.49 - Type 2 diabetes mellitus with other diabetic neurological complication; Z79.4 - adjunct faculty for medical terminology (current) use of insulin Status: Acute (4) Hyperlipidemia LDL goal <100: Code(s): E78.5 - Hyperlipidemia, unspecified Status: Acute (5) Hypertension: Code(s): I10 - Essential (primary) hypertension Status: Acute (6) Bipolar disorder: Code(s): F31.9 - Bipolar disorder, unspecified Status: Acute DS: Summary Hospital Course Reason for hospitalization: 67yo female with COPD here for SOB. Please see H&P for details Hospital Course: Patient presented to ED with increasing shortness of breath over the last 2 weeks.? She has a cough with increased mucus production. Patient was afebrile and remained afebrile throughout her hospital course. ABG 7.41/45/182 on 6 L. She was quickly weaned to room air. She remained on room air during the remainder of her time in the hospital. Troponin was negative x2. Labwork was unrevealing. Chest x-ray was clear. COVID was negative. BNP was 500. She was started on nebulizer treatments, abx and Solu-Medrol. She does have a nebulizer at home. She continued to have a cough productive yellow sputum and her chest is sore from coughing. Overall she does feel better however. She was able to be discharged home on 02/10/2022. Status at Discharge Cognitive/behavioral status at discharge: Stable Time Spent with Patient Time attestation: Total time spent providing and/or coordinating discharge services: 35 minutes Time spent: Greater than 30 minutes Exam Narrative: AF 97.7 161/86 80 12 100% ra Gen - NARD Chest - CTA bilaterally, nml RR. No wheezing CV - RRR S1/S2 Abd - Soft, NT/ND, Positive BS Ext - No pitting pedal edema Psych - Nml mood and affect Skin - Warm and dry DS: Data Data Completed and Pending Labs on day of discharge: Labs from last 24 hours 02/10/22 02/09/22 02/09/22 08:08 19:45 17:14 POC Capillary Glucose 271 H 481 H 280 H 02/09/22 11:55 POC Capillary Glucose 276 H Discharge Plan Discharge Attending physician on discharge: Rai Alas Discharging Clinician: Rai Alas Anticipated Discharge Date/Time: 02/10/22 12:16 Patient Disposition: Home, Self-Care Activity: as tolerated Diet: diabetic Discharge Instructions: Please avoid large gathering, wear face coverings in public and practice social distance. Please check glucose before meals and before bed. Record and bring into your doctor for review. Please complete your antibiotic course even if you are starting to feel well. Take precautions to avoid falls. Rise slowly from a lying or sitting position. Pause before standing or walking. Contact your doctor or call 911 and come to the Emergency Room if you have increasing shortness of breath, fevers or other worrisome symptoms. Avoid NSAIDs (ibuprofen, naproxen, Aleve). Tylenol is safe to take. Follow-up with your doctor in 1-2 weeks. Please call for appointment. Follow-up with your lung doctor in 1-2 weeks. If you do not have a lung doctor, please call Dr Landaverde to schedule an
[2022-02-10 12:13] LABS: Glucose Point of Care 406 mg/dl (65-105)
[2022-02-10] MEDS: INSULIN ASPART (*BKC) 100 UNITS/ML 7 UNITS SUB-Q (12:23)
[2022-02-10] MEDS: ALBUTEROL SULFATE NEB 2.5 MG/0.5 ML INH 5 MG (13:33)
== END 2022-02-10 15:20 | disposition home or self-care (01) ==
LOC: ANHED 06:07 → ANH2MED 06:26
PROVIDERS: Admitting Provider Internal Medicine; Emergency Provider Emergency Medicine; PCP Family Medicine; Visit Provider Internal Medicine
DX: J44.1 Chronic obstructive pulmonary disease with (acute) exacerbation (principal); I48.0 Paroxysmal atrial fibrillation; K90.0 Celiac disease; I25.10 Atherosclerotic heart disease of native coronary artery without angina pectoris; J44.9 Chronic obstructive pulmonary disease, unspecified; E11.42 Type 2 diabetes mellitus with diabetic polyneuropathy; K21.9 Gastro-esophageal reflux disease without esophagitis; I11.0 Hypertensive heart disease with heart failure; I50.9 Heart failure, unspecified; E78.5 Hyperlipidemia, unspecified; E03.9 Hypothyroidism, unspecified; D50.9 Iron deficiency anemia, unspecified; M06.9 Rheumatoid arthritis, unspecified; G47.33 Obstructive sleep apnea (adult) (pediatric); K58.0 Irritable bowel syndrome with diarrhea; F31.9 Bipolar disorder, unspecified; Z86.73 Personal history of transient ischemic attack (TIA), and cerebral infarction without residual deficits; Z98.84 Bariatric surgery status; Z79.01 Long term (current) use of anticoagulants; Z79.51 Long term (current) use of inhaled steroids; Z79.891 Long term (current) use of opiate analgesic; E66.01 Morbid (severe) obesity due to excess calories; Z68.41 Body mass index [BMI] 40.0-44.9, adult; Z79.4 Long term (current) use of insulin; Z20.822 Contact with and (suspected) exposure to COVID-19
CPT/HCPCS: 36415; 36600; 71045; 80048; 82805; 82948; 83880; 84484; 85025; 93005; 94618; 94640; 96365; 96375; 96376; 99285; A9270; C9803; G0378; J1815; J2930; J3475; U0003; U0005

== ENCOUNTER 2022-03-04 08:45 | Outpatient (CLI) | payer MEDICARE, SELFPAY ==
--- NOTE | 2022-04-01 19:32 | WPDSLEEPSTUD ---
Sleep Study Date of Study: 03/04/22 Ordering Provider: Nandini Campos DO Interpreting Physician: Nandini Campos DO Sleep Study Type: Polysomnogram Height: 1.68 m Weight: 113.398 kg Body Mass Index: 40.3 Neck Circumference (inches): 15 [place]: 15 Reason for Sleep Study Previous diagnosis of NICHOLE but couldn't tolerate PAP. PSG on 11/25/2018 showed AHI of 5.7. Prescribed CPAP 9 cm H2O with EPR of 3 after titration study. Sleep History The patient is a 67 year female with asthma, bipolar disorder, COPD, coronary artery disease, hypertension,hypothyroidism, heart failure, type 2 diabetes, paroxysmal atrial fibrillation/flutter and history of transient ischemic attack that had a sleep study ordered to requalify the patient for PAP Therapy. *The patient did not fill out the sleep intake forms.* [facility] Past Medical History Medical History Anisocoria Asthma Asthma Bipolar disorder Body mass index (BMI) 35 or more (10/25/18) Celiac disease Chronic anticoagulation On Xarelto for paroxysmal atrial fibrillation/flutter. Chronic obstructive pulmonary disease Colon cancer screening Coronary artery disease Diffuse severe LAD disease with positive IFR and moderate RCA disease noted on cardiac catheterization in 2019. Managed medically. De Quervain's tenosynovitis Diabetic peripheral neuropathy Diverticulosis Elevated liver enzymes Gastroesophageal reflux disease Heart failure with reduced ejection fraction Follows with [facility] and Dr. Mishra. EF was 50% following MitraClip in 2019 though was her most recent ejection fraction was 20 to 25% in November 2020. Hyperlipidemia Hypersomnia Hypertension Hypothyroidism Insulin dependent type 2 diabetes mellitus Hemoglobin A1c was 8.5% on 05/16/2021. Iron deficiency anemia With history of blood transfusion. Irritable bowel syndrome with diarrhea Kidney stones [facility] (current) use of insulin Morbid obesity Status post gastric bypass surgery in September 2002 with a preoperative weight of 280 lb. Obesity, morbid, BMI 40.0-49.9 Obstructive sleep apnea Paroxysmal atrial fibrillation Paroxysmal atrial flutter Regurgitation of stomach contents Restless leg syndrome Rheumatoid arthritis Severe mitral valve regurgitation Status post MitraClip in 2019. Thyroid disease Patient no longer takes thyroid medicine. Transient ischemic attack Trigger ring finger of right hand Type 2 diabetes mellitus with hyperglycemia Urinary incontinence Surgical History Surgical History Gastric bypass status for obesity (09/2002) H/O section History of bilateral carpal tunnel release History of bladder surgery Insertion of bladder stimulator for urinary incontinence. History of cholecystectomy History of cystoscopy History of esophagogastroduodenoscopy (EGD) History of hysterectomy History of lithotripsy History of right knee joint replacement (2008) Multiple kidney stones Surgery X2 Family History Family History Father Diabetes mellitus Acute myocardial infarction Mother CHF (congestive heart failure) Family history of peptic ulcer Family history of chronic obstructive pulmonary disease, Onset Age: 92 Cerebrovascular accident Family history of arthritis Family history of cardiovascular disease Daughter Cancer Sibling Family history of cardiovascular disease Diabetes mellitus Sibling Diabetes mellitus Daughter Daughter Social History Social History Social History: Surrogate decision maker: Galindo Chen, spouse. She has 2 children. 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 . Code status: Full code. Smoking status: Never smoker Second hand
[2022-04-01 19:53] VITALS: BMI 40.3
== END 2022-03-05 06:44 | disposition home or self-care (01) ==
LOC: ANHCSM 08:52
PROVIDERS: PCP Family Medicine; Visit Provider Family Medicine
DX: R06.83 Snoring (principal); G47.33 Obstructive sleep apnea (adult) (pediatric)
CPT/HCPCS: 95810

== ENCOUNTER 2022-04-10 09:35 | Outpatient (CLI) | payer MEDICARE, SELFPAY ==
--- NOTE | ~2022-04-10 | CT_ITS ---
EXAMINATION: CT diagnostic chest wo con DATE: 04/10/2022 11:08 INDICATION: Shortness of breath TECHNIQUE: Computed tomography (CT) of the chest was performed without intravenous contrast. The dose -length product was 278.48 mGy-cm. Automated exposure control and iterative reconstruction technique were employed. COMPARISON: CT dated 09/04/2019. FINDINGS: Heart size is normal. No significant pleural or pericardial effusion. No thoracic lymphaden opathy. There is atherosclerosis. There are changes of gastric bypass surgery and cholecystectomy. Ca lcified granuloma in the spleen. There is a 3 mm right middle lobe nodule. There is a calcified granu margarita in the left lower lobe. No endobronchial lesions. There is a 3 mm right lower lobe fissural nodu le. No pneumothorax. No endobronchial lesions. There is dependent atelectasis. There is a 2 mm right upper lobe nodule. IMPRESSION: 1. Few scattered nodules measuring 3 mm or less, likely benign. Consider follow-up low dose CT in 12 months. 2: No acute cardiopulmonary disease identified. Reviewed, dictated and finalized at location A. IMPRESSION: 1. Few scattered nodules measuring 3 mm or less, likely benign. Consider follow -up low dose CT in 12 months. 2: No acute cardiopulmonary disease identified.
[2022-04-10 10:05] LABS: Basophils Absolute Auto 0.1 K/mm3 (0.0-0.1); Basophils Percent Auto 0.9 % (0.2-1.2); Eosinophils Absolute Auto 0.1 K/mm3 (0-0.3); Eosinophils Percent Auto 2.2 % (0-4.4); Hematocrit 40.5 % (37.0-47.0); Hemoglobin 13.3 g/dL (12.0-15.0); Immature Granulocyte Absolute 0.05 K/mm3 (0.00-0.031); Immature Granulocyte Percent A 0.8 % (0-0.5); Lymphocytes Absolute Auto 0.89 K/mm3 (0.9-3.2); Mean Corpuscular HGB Conc 32.8 g/dl (32-36); Mean Corpuscular Hemoglobin 27.8 pg (26-34); Mean Corpuscular Volume 84.6 fl (80-100); Mean Platelet Volume 10.2 fl (7.4-10.4); Monocytes Absolute Auto 0.4 K/mm3 (0.1-0.6); Neutrophils Absolute Auto 4.8 K/mm3 (1.3-6.7); Neutrophils Percent Auto 76.1 % (45.5-73.1); Platelet Count Result 163 k/mm3 (150-375); Red Blood Count 4.79 M/mm3 (4.2-5.4); Red Cell Distribution Width 14.4 % (11.5-14.5); White Blood Count 6.3 K/mm3 (4.5-10.0)
[2022-04-10 10:30] VITALS: PULSE 86; O2SAT 96
[2022-04-10 10:33] VITALS: PULSE 99; O2SAT 95
[2022-04-10 10:45] VITALS: PULSE 89; O2SAT 96
[2022-04-10 10:45] LABS: Alanine Aminotransferase 28 U/L (6-35); Albumin Level 3.9 g/dL (3.5-5.1); Alkaline Phosphatase 118 U/L (38-126); Anion Gap 11 mmol/L (8-16); Aspartate Amino Transferase 24 U/L (14-36); Bilirubin,Total 0.6 mg/dL (0.2-1.3); Blood Urea Nitrogen 22 mg/dL (7-17); Calcium 9.2 mg/dL (8.4-10.2); Carbon Dioxide 28 mmol/L (22-30); Chloride 100 mmol/L (98-107); Estimated Glomerular Filt Rate > 60; Glucose 340 mg/dL (65-110); Potassium 4.2 mmol/L (3.4-5.0); Sodium 139 mmol/L (137-145)
[2022-04-10 10:59] LABS: Iron 58 ug/dL (37-170)
[2022-04-10 11:15] LABS: Percent Iron Saturation 14 % (20-50)
[2022-04-10 11:35] LABS: Hemoglobin A1C 9.7 % (<5.7)
--- NOTE | 2022-04-10 16:11 | WPDPFTINT ---
PFT Procedure Performed PFT Procedure Performed Spirometry with Pre/Post Bronchodilator Plethysmography (Lung Vol) Diffusing Cap (DLCO) Flow Vol Loop PFT Interpretation This is a pulmonary function test with pre and post-bronchodilator spirometry, plethysmography and diffusing capacity. The test was performed and results interpreted in accordance with the 2019 and 2005 ATS/ERS Task Force guidelines respectively using the Global Lung Function Initiative-2012 reference equations. Patient demonstrated good effort and cooperation. Reproducibility criteria were met. The quality of the pre bronchodilator spirometry maneuver was Grade B and post bronchodilator spirometry maneuver was Grade A. Findings: Spirometry: The contour the inspiratory and expiratory flow tracing are normal. The pre bronchodilator FVC is 2.68 L, 85% predicted. The pre bronchodilator FEV1 is 1.87 L, 76% predicted. The pre bronchodilator FEV1: FVC ratio 70%. The post bronchodilator FVC is 3.04 L, representing a 13% increase. The post bronchodilator FEV1 is 2.04 L, representing a 9% increase. The post bronchodilator FEV1: FVC ratio is 67%. Plethysmography: The total lung capacity is 5.31 L, 99% predicted. The functional residual capacity is 2.61 L, 85% predicted. The residual volume is 2.35 L, 105% predicted. Diffusing capacity: The diffusing capacity unadjusted for hemoglobin and carboxyhemoglobin is 22.4, 103% predicted. The diffusing capacity adjusted for alveolar volume is 4.51, 106% predicted. Impression: The spirometry is normal without evidence of an obstructive abnormality. There is significant improvement after inhaling a single dose of albuterol. The lung volumes are normal. The diffusing capacity is normal. There are no prior studies for comparison
== END 2022-04-10 09:36 | disposition home or self-care (01) ==
PROVIDERS: PCP Family Medicine; Referring Provider Family Medicine; Visit Provider Internal Medicine Pulmonary Disease
DX: E11.9 Type 2 diabetes mellitus without complications (principal); D50.8 Other iron deficiency anemias; E11.42 Type 2 diabetes mellitus with diabetic polyneuropathy; Z79.4 Long term (current) use of insulin; J44.9 Chronic obstructive pulmonary disease, unspecified; R06.02 Shortness of breath; R91.8 Other nonspecific abnormal finding of lung field
CPT/HCPCS: 36415; 71250; 80053; 82728; 83036; 83540; 83550; 85025; 94060; 94618; 94726; 94729

== ENCOUNTER 2022-04-16 00:36 | Day surgery (SDC) | payer MEDICARE, SELFPAY ==
[2022-04-15 10:02] VITALS: BMI 40.4
--- NOTE | 2022-04-15 10:26 | PC.NURSE ---
Addendum entered by Patricia Liu RN 04/15/22 10:28: PT STATE NATACHA ARAYA 04/12/22 Original Note: Report to the Outpatient Waiting Room, entrance under the green pavilion located off [facility], at time _1200 on date __04/16/22 . OR Time: 2PM___. Time changes happen often and if your time is changed the preop area will call you the afternoon before. - You and your visitor will be asked to self-screen and do not enter if you have any COVID symptoms. - We encourage only one visitor and NO visitors under age 16 are allowed at this time. Your visitor will receive communication by the phone number that is given day of service. - The patient visitor is requested to social distance or may leave the building when not with patient due to restrictions. - A mask is required within the hospital. Patients may have clear liquids (water, carbonated beverages, clear teas, apple juice) until 3 hours prior to surgery (1100 AM) with a maximum of 20 ounces. - No food from midnight until time of surgery - Infants may have breast milk until 4 hours before surgery, formula 6 hours prior to surgery. - Children will be allowed to drink immediately following surgery. If applicable, please bring a bottle or sippy cup to assist with drinking. Juice, water, soda, and popsicles are readily available. For infants on formula, please bring formula the day of surgery. Pacifiers are allowed. Take the following medications with a SIP of water the morning of surgery: _1/2 OF AM INSULIN DOSE, CARVEDILOL, INHALERS, PAIN MEDS IF NEEDED_ Medications to discontinue per physician N/A Date to take last dose Please no make-up, nail mongolian, hairspray, perfume, deodorant, or body powder the day of surgery. No jewelry (including any body piercings) or valuables the day of surgery, leave them at home. Please take a shower or bath the night before, or the morning of, surgery with an antibacterial soap. Wear comfortable, loose fitting clothing. Children are encouraged to wear pajamas. - Jewelry must be removed prior to entering the operating room. Rings and piercings that are not removed may be cut off. - The hospital will not accept responsibility for valuables. - Please leave all valuables, including medications, at home the day of surgery. If you are going home after surgery, a licensed cdl a driver must drive you home. - NO public transportation without another adult. - We recommend that an adult stay with you for 24 hours following discharge. - We also recommend that you do not drive, make important decision, drink alcoholic beverages, or take any drugs that were not prescribed by your health care provider for at least 24 hours after your discharge time. For Pediatric surgeries, we recommend two adults accompany the child home. Follow any additional instructions given to you from your surgeon. If you or anyone in your household have experienced Covid symptoms in the past week, please notify your surgeon or the nurse liaison at the phone number below for possible testing. Telephone instructions given to ___PT and asked if any additional questions and then verbalized understanding. Patient advised to call surgeon office or pre surgery nurse liaison [phone] if any additional questions.
--- NOTE | 2022-04-16 07:18 | WPDHPUPDATE1 ---
History and Physical Update Update Date/Time: 04/16/22 07:18 History and Physical has been reviewed, including an updated exam of the patient. There are NO changes in the patient's condition. Risks, benefits, and alternatives have been discussed and questions answered. Patient agrees to proceed with procedure.
[2022-04-16 13:05] VITALS: BP 128/67; PULSE 61; RESP 16; TEMP 37.2; O2SAT 99
[2022-04-16 13:22] LABS: Glucose Point of Care 262 mg/dl (65-105)
[2022-04-16] MEDS: CELECOXIB 200 MG CAPSULE PO (13:28)
[2022-04-16] MEDS: ACETAMINOPHEN 500 MG TABLET 1000 MG PO (13:28)
[2022-04-16 13:30] VITALS: BMI 42.0
[2022-04-16 14:29] VITALS: BP 138/82; PULSE 69; RESP 14; O2SAT 99
[2022-04-16 14:40] VITALS: BP 153/102; PULSE 70; RESP 16; O2SAT 98
[2022-04-16 14:50] VITALS: BP 163/88; PULSE 64; RESP 16; O2SAT 98
[2022-04-16] MEDS: BUPIVACAINE HCL 0.5% PF 30 ML VIAL 8 ML INFILTRATE (14:59)
[2022-04-16 15:08] VITALS: BP 154/79; PULSE 64; RESP 16; O2SAT 98
--- NOTE | 2022-04-16 15:11 | P.OP_ITS ---
Procedure Note - Detailed Date of Procedure 04/16/22 Pre-op Diagnosis Trigger Fingers 3rd & 4th fingers Rt Hand Post-op Diagnosis Same Procedure Performed RELEASE OF A1 KENNEY RIGHT RING FINGER AND MIDDLE FINGER Surgeon Jhoan Thompson MD Anesthesia General Description of Procedure THE PATIENT WAS TAKEN TO THE OR IN STABLE CONDITION. THE RIGHT UPPER EXTREMITY WAS PREPPED AND DRAPED IN THE USUAL STERILE FASHION. THE TOURNIQUET WAS INFLATED. MARCAINE 0.5% WITHOUT EPINEPHRINE WAS USED TO ANESTHETIZE THE SKIN OVER THE 3RD AND 4TH DIGIT A1 KENNEY. AN INCISION WAS MADE OVER THE RING FINGER A1 KENNEY DOWN THROUGH THE SUBCUTANEOUS TISSUES UNTIL THE A1 KENNEY SHEATH WAS VISUALIZED. AN INCISION WAS MADE OVER THE KENNEY UNTIL THE FLEXOR TENDON WAS IDENTIFIED. THE INCISION CONTINUED PROXIMALLY AND DISTALLY UNTIL THE KENNEY WAS RELEASED AND THE TENDON EXCURSION WAS WITHOUT TRIGGERING. THE DIGITAL NERVES W ERE VISUALIZED. THE TENDONS WERE DIRECTLY VISUALIZED AND WERE INTACT. NEXT AN INCISION WAS MADE OVER THE MIDDLE FINGER A1 KENNEY DOWN THROUGH THE SUB CUTANEOUS TISSUES. BOTH DIGITAL NERVES WERE IDENTIFIED AND RETRACTED. THE A1 KENNEY WAS THEN RELEASED PROXIMALLY AND DISTALLY UNTIL THE KENNEY WAS COMPLETELY RELEASED. THE FLEXOR TENDONS WERE VISUALIZED THEY PASSED THROUGH THE SHEATH WITH NO TRIGGERING. THE TOURNIQUET WAS DEFLATED AND THE WOUNDS WERE WASHED AND THE BLEEDERS WERE CAUTERIZED. THE SKIN WAS REPAIRED WITH 4-0 NYLON. A STERILE DRESSING WAS APPLIED. THE PATIENT WAS EXTUBATED AND SENT TO RECOVERY ROOM. Estimated Blood Loss 1 Complications No immediate complications Condition Stable Disposition PACU
[2022-04-16 15:18] LABS: Glucose Point of Care 228 mg/dl (65-105)
== END 2022-04-16 15:35 | disposition home or self-care (01) ==
PROVIDERS: PCP Family Medicine; Visit Provider Orthopaedic Surgery
PROC: (CPT 26055; principal; 2022-04-16 14:00)
DX: M65.331 Trigger finger, right middle finger (principal); M65.341 Trigger finger, right ring finger; J44.9 Chronic obstructive pulmonary disease, unspecified; I25.10 Atherosclerotic heart disease of native coronary artery without angina pectoris; E11.42 Type 2 diabetes mellitus with diabetic polyneuropathy; I11.0 Hypertensive heart disease with heart failure; I50.9 Heart failure, unspecified; I48.0 Paroxysmal atrial fibrillation; M06.9 Rheumatoid arthritis, unspecified; E03.9 Hypothyroidism, unspecified; E78.5 Hyperlipidemia, unspecified; G47.33 Obstructive sleep apnea (adult) (pediatric); D50.9 Iron deficiency anemia, unspecified; K21.9 Gastro-esophageal reflux disease without esophagitis; F31.9 Bipolar disorder, unspecified; Z86.73 Personal history of transient ischemic attack (TIA), and cerebral infarction without residual deficits; Z79.01 Long term (current) use of anticoagulants; Z98.84 Bariatric surgery status; E66.01 Morbid (severe) obesity due to excess calories; Z68.41 Body mass index [BMI] 40.0-44.9, adult; Z79.4 Long term (current) use of insulin; Z79.51 Long term (current) use of inhaled steroids
CPT/HCPCS: 26055 ×2; 82948; A9270

== ENCOUNTER 2022-05-14 14:22 | Emergency (ER) | payer MEDICARE, SELFPAY ==
--- NOTE | ~2022-05-14 | XR_ITS ---
EXAMINATION: XR chest 2V Exam Date/Time: 05/14/2022 19:20 SUPERVISOR LOGGING HISTORY: cough Comparison: X-ray chest 02/09/2022, CT chest 04/10/2022. RESULT: Lines, tubes, and devices: Mitral valve appliance. Prior gastric surgery. Lungs and pleura: Senescent changes, otherwise clear. Cardiomediastinal silhouette: Stable, given interval differences in technique. Other: No acute osseous or upper abdominal finding. IMPRESSION: No acute cardiopulmonary process. Reviewed, dictated and finalized at location K. RVISOR LOGGING
--- NOTE | ~2022-05-14 | XR_ITS ---
EXAM: XR sacrum coccyx min 2V DATE: 05/14/2022 19:54 HISTORY: FALL . COMPARISON: CTPA chest, abdomen pelvis 09/04/2019. FINDINGS: Right posterior stimulator, lead terminating over the right sacrum. Decreased mineralizati on. No fracture or dislocation. No lytic or blastic lesion. Degenerative change in the lumbar spine a nd bilateral hips. No erosion or periosteal change. Atherosclerotic arterial calcification. Pelvic ph leboliths. IMPRESSION: No acute osseous finding in the sacrum or coccyx. Reviewed, dictated and finalized at location K. ASSISTANT
--- NOTE | ~2022-05-14 | XR_ITS ---
EXAM: XR shoulder LT min 2V DATE: 05/14/2022 19:54 HISTORY: fall . COMPARISON: None available. FINDINGS: Decreased mineralization. No fracture or dislocation. No lytic or blastic lesion. Mild deg enerative change at the AC joint and glenohumeral joint. Rotator cuff calcific tendinitis. No erosion or periosteal change. Soft tissues within normal limits. IMPRESSION: No acute osseous finding in the left shoulder. Reviewed, dictated and finalized at location K. ING SERVICES CLERK
[2022-05-14 15:24] VITALS: BP 134/57; PULSE 78; RESP 14; TEMP 37.8; O2SAT 99
--- NOTE | 2022-05-14 15:31 | ECG_ITS ---
Measurements Intervals [place] Rate: 73 P: 51 [place]: 230 QRS: 110 QRSD: 157 T: 43 QT: 409 QTc: 453 Interpretive Statements SINUS RHYTHM WITH FIRST DEGREE AV BLOCK RIGHT AXIS DEVIATION POSSIBLE LEFT ATRIAL ENLARGEMENT RIGHT BUNDLE BRANCH BLOCK BASELINE ARTIFACT- I, II, III, AVR, AVL, AVF, V1-V6 ABNORMAL ECG COMPARED TO ECG 02/09/2022 01:34:55 NO SIGNIFICANT CHANGES Electronically Signed On 05-14-2022 20:09:18 TOOL DESIGN DRAFTER by Narinder Roche D.O.
[2022-05-14 17:31] LABS: Basophils Percent Auto 0.6 % (0.2-1.2); Eosinophils Absolute Auto 0.2 K/mm3 (0-0.3); Eosinophils Percent Auto 2.9 % (0-4.4); Hematocrit 39.5 % (37.0-47.0); Hemoglobin 12.9 g/dL (12.0-15.0); Immature Granulocyte Absolute 0.04 K/mm3 (0.00-0.031); Immature Granulocyte Percent A 0.6 % (0-0.5); Lymphocytes Absolute Auto 1.24 K/mm3 (0.9-3.2); Lymphocytes Percent Auto 17.8 % (18.3-44.2); Mean Corpuscular HGB Conc 32.7 g/dl (32-36); Mean Corpuscular Hemoglobin 28.4 pg (26-34); Mean Corpuscular Volume 86.8 fl (80-100); Mean Platelet Volume 10.5 fl (7.4-10.4); Monocytes Absolute Auto 0.6 K/mm3 (0.1-0.6); Monocytes Percent Auto 8.3 % (2.6-8.5); Neutrophils Absolute Auto 4.9 K/mm3 (1.3-6.7); Neutrophils Percent Auto 69.8 % (45.5-73.1); Platelet Count Result 154 k/mm3 (150-375); Red Blood Count 4.55 M/mm3 (4.2-5.4); Red Cell Distribution Width 14.2 % (11.5-14.5)
[2022-05-14 17:45] LABS: Alanine Aminotransferase 24 U/L (6-35); Albumin Level 3.6 g/dL (3.5-5.1); Alkaline Phosphatase 116 U/L (38-126); Anion Gap 8 mmol/L (8-16); Aspartate Amino Transferase 21 U/L (14-36); Bilirubin,Total 0.4 mg/dL (0.2-1.3); Blood Urea Nitrogen 23 mg/dL (7-17); Calcium 8.2 mg/dL (8.4-10.2); Carbon Dioxide 29 mmol/L (22-30); Chloride 104 mmol/L (98-107); Estimated CRCL calculation 87 ml/min; Estimated Glomerular Filt Rate > 60; Glucose 280 mg/dL (65-110); Potassium 3.7 mmol/L (3.4-5.0); Sodium 141 mmol/L (137-145)
[2022-05-14 18:07] LABS: Influenza A QL RT-PCR Negative (Negative); Influenza B QL RT-PCR Negative (Negative); SARS-CoV-2 RNA PCR Negative
[2022-05-14 18:57] VITALS: BP 161/72; PULSE 72; RESP 16; O2SAT 100
--- NOTE | 2022-05-14 18:58 | ED.FALL ---
HPI - Fall General Chief Complaint: Fall Stated Complaint: fall with pain to tailbone Time Seen by Provider: 05/14/22 18:46 History of Present Illness HPI Narrative: Pt felt a little dizzy and lightheaded and lost balance and fell backward striking the back of her left shoulder on a stand and landing on her bottom. Pt did not lose consciousness. Pt complains of left shoulder and tailbone pain. Pt denies runny nose or sore throat or urinary symptoms. Pt has cough but is not different than normal (COPD) Related Data Home Medications Medication Instructions Recorded Confirmed rivaroxaban 20 mg tablet (Xarelto) 20 mg PO DAILY 04/03/21 05/01/22 nitroglycerin 0.4 mg sublingual 0.4 mg sublingual Q5-15M PRN Chest 06/01/21 05/01/22 tablet (Nitrostat) Pain acetaminophen 500 mg tablet 500 mg PO Q6H PRN pain 08/21/21 05/01/22 (Tylenol Extra Strength) furosemide 40 mg tablet (Lasix) 40 mg PO DAILY 08/21/21 05/01/22 carvedilol 25 mg tablet 12.5 mg PO Q12H 09/25/21 05/01/22 atorvastatin 10 mg tablet 20 mg PO QHS 11/19/21 05/01/22 ropinirole 3 mg tablet 3 mg PO HS 02/09/22 05/01/22 cholecalciferol (vitamin D3) 50 50 mcg PO QAM 04/15/22 05/01/22 mcg (2,000 unit) tablet cyclobenzaprine 10 mg tablet 10 mg PO TID PRN Muscle Spasm 04/15/22 05/01/22 hydrocodone 7.5 mg-acetaminophen 1 tablet BID PRN Pain 04/15/22 05/01/22 325 mg tablet ipratropium 0.5 mg-albuterol 3 mg See Rx Instructions .Route 04/15/22 05/01/22 (2.5 mg base)/3 mL nebulization .COMPLEX PRN Wheezing soln Allergies Allergy/AdvReac Type Severity Reaction Status Date / Time cephalexin Allergy Unknown Diarrhea Verified 05/08/22 08:29 diphenhydramine Allergy Unknown JERKY/JUMPY, Verified 05/08/22 08:29 GO CRAZY IN MY SKIN latex Allergy Unknown Hives Verified 05/08/22 08:29 Penicillins Allergy Unknown Hives Verified 05/08/22 08:29 Review of Systems Review of Systems: All systems reviewed & are unremarkable except as noted in HPI and below PMFSH Past Medical History Medical History (Updated 05/14/22 @ 20:24 by Akash Crocker III, DO) Anisocoria Asthma Asthma Bipolar disorder Body mass index (BMI) 35 or more (10/25/18) Celiac disease Chronic anticoagulation On Xarelto for paroxysmal atrial fibrillation/flutter. Chronic obstructive pulmonary disease Colon cancer screening Coronary artery disease Diffuse severe LAD disease with positive IFR and moderate RCA disease noted on cardiac catheterization in 2019. Managed medically. De Quervain's tenosynovitis Diabetic peripheral neuropathy Diverticulosis Elevated liver enzymes Gastroesophageal reflux disease Heart failure with reduced ejection fraction Follows with [facility] and Dr. Mishra. EF was 50% following MitraClip in 2019 though was her most recent ejection fraction was 20 to 25% in November 2020. Hyperlipidemia Hypersomnia Hypertension Hypothyroidism Insulin dependent type 2 diabetes mellitus Hemoglobin A1c was 8.5% on 05/16/2021. Iron deficiency anemia With history of blood transfusion. Irritable bowel syndrome with diarrhea [facility]ney stones [facility] (current) use of insulin Morbid obesity Status post gastric bypass surgery in September 2002 with a preoperative weight of 280 lb. Obesity, morbid, BMI 40.0-49.9 Obstructive sleep apnea Paroxysmal atrial fibrillation Paroxysmal atrial flutter Regurgitation of stomach contents Restless leg syndrome Rheumatoid arthritis Severe mitral valve regurgitation Status post MitraClip in 2019. Thyroid disease Patient no longer takes thyroid medicine. Transient ischemic attack Trigger ring finger of right hand Type 2 diabetes mellitus with hyperglycemia Urinary incontinence Surgical History Surgical History (Updated 05/08/22 @ 08:47 by Christiano Keene MD) Gastric bypass status for obesity (09/2002) H/O section History of bilateral carpal tunnel release History of bladder surgery Insertion of bladder sti
[2022-05-14 19:09] LABS: Appearance Urine Clear (Clear); Bilirubin Urine Negative (Negative); Blood Urine Negative (Negative); Color Urine Yellow (Yellow); Glucose Urine UA 3+ mg/dL (Negative); Ketones Urine Trace mg/dL (Negative); Leukocyte Esterase Ur Negative LEU/UL (Negative); Nitrate Urine Negative (Negative); Protein Urine Negative (Negative); Urobilinogen Urine 0.2 mg/dL (<2.0); pH Urine 5.5 (5.0-9.0)
[2022-05-14 19:16] LABS: Mucus Urine Rare /lpf; RBC Urine 0-2 /hpf (0-2); Squamous Epithelial Cell Urine Occasional /hpf (Few); WBC Urine 0-3 /hpf
[2022-05-14 19:17] LABS: Add Urine Microscopic? YES
[2022-05-14 20:40] VITALS: BP 159/93; PULSE 82; RESP 16; TEMP 36.9; O2SAT 100
== END 2022-05-14 20:45 | disposition home or self-care (01) ==
PROVIDERS: Emergency Medicine; Emergency Provider Emergency Medicine; PCP Family Medicine
DX: M25.512 Pain in left shoulder (principal); T14.8XXA Other injury of unspecified body region, initial encounter; J45.909 Unspecified asthma, uncomplicated; I25.10 Atherosclerotic heart disease of native coronary artery without angina pectoris; K21.9 Gastro-esophageal reflux disease without esophagitis; I10 Essential (primary) hypertension; E03.9 Hypothyroidism, unspecified; E11.9 Type 2 diabetes mellitus without complications; Z79.4 Long term (current) use of insulin; G47.30 Sleep apnea, unspecified; I48.91 Unspecified atrial fibrillation; Z96.651 Presence of right artificial knee joint; W01.0XXA Fall on same level from slipping, tripping and stumbling without subsequent striking against object, initial encounter; Z20.822 Contact with and (suspected) exposure to COVID-19
CPT/HCPCS: 36415; 71046; 72220; 73030; 80053; 81001; 85025; 87636; 93005; 99284

== ENCOUNTER 2022-06-11 00:24 | Day surgery (SDC) | payer MEDICARE, SELFPAY ==
[2022-06-03 14:03] VITALS: BMI 41.6
[2022-06-11 09:38] VITALS: BP 165/72; PULSE 79; RESP 20; TEMP 36.4; O2SAT 100; BMI 40.6
[2022-06-11] MEDS: LACTATED RINGERS 1,000 ML 150 ML IV CONT (10:04)
--- NOTE | 2022-06-11 10:06 | WPDANESEPPF ---
Anes - Initial Pre Proc Eval Procedure: Operation Date: 06/11/22 10:45 Proposed Procedures p Esophagogastroduodenoscopy & Colonoscopy - Christiano Keene MD Date/Time: 06/11/22 10:06 Surgeon: Christiano Keene MD Pre Op Diagnosis: nausea/vomiting; IBS diarrhea Patient Data Age: 67 Gender: F Height: 1.68 m Weight: 114.3 kg Last Vital Signs Temp 97.6 F 06/11/22 09:38 Pulse 79 06/11/22 09:38 Resp 20 06/11/22 09:38 BP 165/72 H 06/11/22 09:38 Pulse Ox 100 06/11/22 09:38 O2 Del Method Room Air 06/11/22 09:38 Allergies Allergy/AdvReac Type Severity Reaction Status Date / Time cephalexin Allergy Unknown Diarrhea Verified 06/11/22 09:37 diphenhydramine Allergy Unknown JERKY/JUMPY, Verified 06/11/22 09:37 GO CRAZY IN MY SKIN latex Allergy Unknown Hives Verified 06/11/22 09:37 Penicillins Allergy Unknown Hives Verified 06/11/22 09:37 Home Medications Medication Instructions Recorded Confirmed Type flash glucose sensor (FreeStyle #6 ea 01/21/21 06/11/22 Rx Heladio 2 Sensor kit) rivaroxaban 20 mg tablet (Xarelto) 20 mg PO DAILY 04/03/21 06/11/22 History nitroglycerin 0.4 mg sublingual 0.4 mg sublingual Q5-15M PRN Chest 06/01/21 06/11/22 History tablet (Nitrostat) Pain melatonin 5 mg tablet 5 mg PO HS #30 tabs 06/06/21 06/11/22 Rx sacubitril 49 mg-valsartan 51 mg 1 tablet PO Q12HR #60 tabs 06/06/21 06/11/22 Rx tablet (Entresto) acetaminophen 500 mg tablet 500 mg PO Q6H PRN pain 08/21/21 06/11/22 History (Tylenol Extra Strength) furosemide 40 mg tablet (Lasix) 40 mg PO DAILY 08/21/21 06/11/22 History carvedilol 25 mg tablet 12.5 mg PO Q12H 09/25/21 06/11/22 History atorvastatin 10 mg tablet 20 mg PO QHS 11/19/21 06/11/22 History insulin degludec 100 unit/mL (3 18 unit (0.18 mL) subcut QAM 90 01/09/22 06/11/22 Rx mL) subcutaneous pen (Tresiba days #18 mL FlexTouch U-100 insulin) insulin lispro 100 unit/mL 6 unit (0.06 mL) subcut TIDWMEAL 01/09/22 06/11/22 Rx subcutaneous pen (Humalog KwikPen 90 days #30 mL (U-100) Insulin) ferrous sulfate 325 mg (65 mg 325 mg PO DAILY anemia #90 tabs 01/30/22 06/11/22 Rx iron) tablet ropinirole 3 mg tablet 3 mg PO HS 02/09/22 06/11/22 History bupropion HCl 150 mg 24 hr tablet, 150 mg PO QAM #90 tabs 03/27/22 06/11/22 Rx extended release (Wellbutrin XL) sertraline 100 mg tablet 200 mg PO DAILY #180 tabs 03/27/22 06/11/22 Rx cholecalciferol (vitamin D3) 50 50 mcg PO QAM 04/15/22 06/11/22 History mcg (2,000 unit) tablet cyclobenzaprine 10 mg tablet 10 mg PO TID PRN Muscle Spasm 04/15/22 06/11/22 History pregabalin 150 mg capsule (Lyrica) 150 mg PO Q12H 3 months #180 caps 05/16/22 06/11/22 Rx hydrocodone 5 mg-acetaminophen 325 1 tablet PO Q6H PRN pain #10 tabs 05/23/22 06/11/22 Rx mg tablet nystatin 100,000 unit/gram topical 1 applic topical TID #60 grams 06/09/22 06/11/22 Rx powder Patient hx anesthesia problems: none Family hx anesthesia problems: none Results Review: All pre-operative results and documents have been reviewed as part of the pre-operative evaluation. [facility] Past Medical History Medical History Anisocoria Asthma Asthma Bipolar disorder Body mass index (BMI) 35 or more (10/25/18) Celiac disease Chronic anticoagulation On Xarelto for paroxysmal atrial fibrillation/flutter. Chronic obstructive pulmonary disease Colon cancer screening Coronary artery disease Diffuse severe LAD disease with positive IFR and moderate RCA disease noted on cardiac catheterization in 2020. Managed medically. De Quervain's tenosynovitis Diabetic peripheral neuropathy Diverticulosis Elevated liver enzymes Gastroesophageal reflux disease Heart failure with reduced ejection fraction Follows with [facility]iology and Dr. Mishra. EF was 50% following MitraClip in 2020 though was her most recent ejection fraction was 20 to 2
[2022-06-11 10:10] LABS: Glucose Point of Care 205 mg/dl (65-105)
--- NOTE | 2022-06-11 10:12 | PM.HPGS ---
History of Present Illness History of Present Illness Consent: Risks, benefits, and alternatives have been discussed and questions answered. Patient agrees to proceed with procedure. Chief complaint: nausea/vomiting; IBS diarrhea Narrative: Charlene Chen is a 67 year old female here for egd and colonoscopy, morbid obesity s/p gastric bypass about 20 years ago, DM for over 10 years now using insulin. She also was diagnosed with IBS-D using antidiarrheal as needed, says that last colonoscopy about 10 years ago. She lost 100 lb since gastric bypass but gained 50lb. She has intermittent nausea. Review of Systems Constitutional: Constitutional: Denies headache(s) and Denies weakness Eyes: Eyes: Denies blurry vision ENT: Reports Normal hearing present, Denies headache(s) and Denies neck pain Cardiovascular: Cardiovascular: Denies chest pain and Denies dyspnea Respiratory: Respiratory: Denies dyspnea Gastrointestinal: Gastrointestinal: Reports no additional gastrointestinal complaints Genitourinary: Genitourinary: Denies dysuria Musculoskeletal: Musculoskeletal: Denies neck pain Integumentary/Breasts: Skin/Breast: Denies dry skin Neurologic: Reports Normal hearing present, Denies headache(s) and Denies weakness Psychiatric: Psychiatric: Denies anxiety Endocrine: Endocrine: Denies change in body appearance Hematologic/Lymphatic: Hematologic/Lymphatic: Denies easy bleeding Allergic/Immunologic: Allergic/Immunologic: Denies urticaria PMFSH Past Medical History Medical History Anisocoria Asthma Asthma Bipolar disorder Body mass index (BMI) 35 or more (10/25/18) Celiac disease Chronic anticoagulation On Xarelto for paroxysmal atrial fibrillation/flutter. Chronic obstructive pulmonary disease Colon cancer screening Coronary artery disease Diffuse severe LAD disease with positive IFR and moderate RCA disease noted on cardiac catheterization in 2019. Managed medically. De Quervain's tenosynovitis Diabetic peripheral neuropathy Diverticulosis Elevated liver enzymes Gastroesophageal reflux disease Heart failure with reduced ejection fraction Follows with [facility]iology and Dr. Mishra. EF was 50% following MitraClip in 2019 though was her most recent ejection fraction was 20 to 25% in November 2020. Hyperlipidemia Hypersomnia Hypertension Hypothyroidism Insulin dependent type 2 diabetes mellitus Hemoglobin A1c was 8.5% on 05/16/2021. Iron deficiency anemia With history of blood transfusion. 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 Obesity, morbid, BMI 40.0-49.9 Obstructive sleep apnea Paroxysmal atrial fibrillation Paroxysmal atrial flutter Regurgitation of stomach contents Restless leg syndrome Rheumatoid arthritis Severe mitral valve regurgitation Status post MitraClip in 2019. Thyroid disease Patient no longer takes thyroid medicine. Transient ischemic attack Trigger ring finger of right hand Type 2 diabetes mellitus with hyperglycemia Urinary incontinence Surgical History Surgical History Gastric bypass status for obesity (09/2002) H/O section History of bilateral carpal tunnel release History of bladder surgery Insertion of bladder stimulator for urinary incontinence. History of cholecystectomy History of cystoscopy History of esophagogastroduodenoscopy (EGD) History of hysterectomy History of lithotripsy History of right knee joint replacement (2008) Multiple kidney stones Surgery X2 Family History Family History Father Diabetes mellitus Acute myocardial infarction Mother CHF (congestive heart failure) Family history of peptic ulcer Fa
[2022-06-11] MEDS: BENZOCAINE (*SP) 60 ML SPRAY CAN (HURRICAINE) 1 SPRAY MUCOUS MEM (10:16)
--- NOTE | 2022-06-11 10:42 | SUR.OPER ---
EGD START 1017, END 1020 COLONOSCOPY START 1025, END 1040
[2022-06-11 10:44] VITALS: BP 129/63; PULSE 84; RESP 25; O2SAT 98
[2022-06-11 10:54] VITALS: BP 139/74; PULSE 85; RESP 20; O2SAT 100
[2022-06-11 11:04] VITALS: BP 141/75; PULSE 88; RESP 20; O2SAT 100
== END 2022-06-11 11:16 | disposition home or self-care (01) ==
PROVIDERS: PCP Family Medicine; Visit Provider Internal Medicine Gastroenterology
PROC: 0DJ08ZZ Inspection of Upper Intestinal Tract, Via Natural or Artificial Opening Endoscopic (ICD-10-PCS; CPT 43235; principal; 2022-06-11 10:45)
DX: Z12.11 Encounter for screening for malignant neoplasm of colon (principal); K58.0 Irritable bowel syndrome with diarrhea; K63.5 Polyp of colon; K64.8 Other hemorrhoids; R11.2 Nausea with vomiting, unspecified; K44.9 Diaphragmatic hernia without obstruction or gangrene; Z98.84 Bariatric surgery status; I48.0 Paroxysmal atrial fibrillation; J44.9 Chronic obstructive pulmonary disease, unspecified; E11.42 Type 2 diabetes mellitus with diabetic polyneuropathy; K21.9 Gastro-esophageal reflux disease without esophagitis; D50.9 Iron deficiency anemia, unspecified; F31.9 Bipolar disorder, unspecified; I25.10 Atherosclerotic heart disease of native coronary artery without angina pectoris; I11.0 Hypertensive heart disease with heart failure; I50.9 Heart failure, unspecified; M06.9 Rheumatoid arthritis, unspecified; G25.81 Restless legs syndrome; E66.01 Morbid (severe) obesity due to excess calories; Z68.41 Body mass index [BMI] 40.0-44.9, adult; Z79.01 Long term (current) use of anticoagulants; Z79.4 Long term (current) use of insulin; Z86.73 Personal history of transient ischemic attack (TIA), and cerebral infarction without residual deficits
CPT/HCPCS: 45385; 45380; 43239; 82948; 88305; J2704; J7120

== ENCOUNTER → 2022-06-16 10:11 | Outpatient (CLI) | payer MEDICARE, SELFPAY ==
--- NOTE | ~2022-06-16 | XR_ITS ---
EXAMINATION: XR chest 2V DATE: 06/16/2022 10:27 INDICATION: Chronic obstructive pulmonary disease. TECHNIQUE: PA and lateral views of the chest were obtained. COMPARISON: Chest radiograph dated 05/14/[address] dated 04/10/2022. FINDINGS: Subtle opacities in the right lower lobe. Remainder of the lungs are clear. No pulmonary edema, pleur al effusion or pneumothorax. The cardiomediastinal silhouette is normal. Unchanged Mitraclip projecti ng over the heart. Visualized bones and soft tissues are unremarkable. IMPRESSION: 1. Subtle opacity right lower lobe which could represent atelectasis or pneumonia. Reviewed, dictated and finalized at location A. ER'S MATE G IMPRESSION: 1. Subtle opacity right lower lobe which could represent atelectasis or pneumon ia.
== END ==
PROVIDERS: PCP Clinical Nurse Specialist; Visit Provider Clinical Nurse Specialist
DX: J44.9 Chronic obstructive pulmonary disease, unspecified (principal); R91.8 Other nonspecific abnormal finding of lung field
CPT/HCPCS: 71046

== ENCOUNTER → 2022-06-24 13:02 | Outpatient (CLI) | payer MEDICARE, SELFPAY ==
--- NOTE | ~2022-06-24 | XR_ITS ---
EXAMINATION: XR chest 2V 06/24/2022 13:27 INDICATION: Pneumonia PROCEDURE: 2 view chest COMPARISON: 06/16/2022 FINDINGS: The lungs are clear. Interval resolution of right basilar infiltrates. The cardiomediastina l silhouette is within normal limits. There are no pleural effusions. There is no pneumothorax susp ected. IMPRESSION: 1: NO ACUTE CARDIOPULMONARY DISEASE. Reviewed, dictated and finalized at location A. T PICKER
== END ==
PROVIDERS: PCP Internal Medicine; Visit Provider Clinical Nurse Specialist
DX: J18.9 Pneumonia, unspecified organism (principal)
CPT/HCPCS: 71046

== ENCOUNTER 2022-07-12 18:57 | Observation (INO) | payer MEDICARE, SELFPAY ==
[2022-07-12] VITALS (24 sets, daily range): BP systolic 101–182; BP diastolic 58–86; PULSE 72–88; RESP 11–26; TEMP 36.6–36.9; O2SAT 98–100; BMI 42.7
--- NOTE | ~2022-07-12 | US_ITS ---
EXAMINATION: US venous doppler [facility] DATE: 07/13/2022 20:45 INDICATION: Bilateral lower extremity swelling and tenderness . TECHNIQUE: Grayscale images without and with compression and Doppler images of the bilateral lower ex tremity veins were obtained. COMPARISON: 08/03/2021. FINDINGS: The right common femoral vein, profunda (deep) femoral vein, femoral vein, popliteal vein, peroneal v ein, posterior tibial veins, gastrocnemius vein, and greater saphenous vein are patent. The left common femoral vein, profunda femoral vein, femoral vein, popliteal vein, peroneal vein, pos terior tibial veins, gastrocnemius vein, and greater saphenous vein are patent. IMPRESSION: 1. Patent bilateral lower extremity veins. No evidence of deep venous thrombosis. Reviewed, dictated and finalized at location K. ET STALL VENDOR IMPRESSION: 1. Patent bilateral lower extremity veins. No evidence of deep venous thrombos is.
--- NOTE | ~2022-07-12 | XR_ITS ---
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 Hx asthma,copd,cad,afib Comparison: 06/24/2022 and 06/16/2022. RESULT: Lines, tubes, and devices: Atrial occlusion device. Lungs and pleura: Reticulonodular opacities in the bilateral lower lungs. Cardiomediastinal silhouette: Stable. Other: No acute osseous or upper abdominal finding. IMPRESSION: Mild interstitial edema. Reviewed, dictated and finalized at location K. CATE FABRICS PRESSER IMPRESSION: Mild interstitial edema.
--- NOTE | ~2022-07-12 | US_ITS ---
EXAMINATION: US arterial ankle brachial ind DATE: 07/14/2022 10:14 INDICATION: Claudication. TECHNIQUE: Segmental pressures and plethysmographic and Doppler waveforms of the brachial and lower e xtremity arteries were obtained. COMPARISON: None. FINDINGS: Right brachial artery pressure is 99 mm Hg. Left brachial artery pressure was not measured. The right ankle-brachial index (MASOOD) is 1.09 (normal >= 0.9-1.0). The right great toe-brachial index (TBI) is 0.36 (normal >= 0.65). Arterial Doppler waveforms are triphasic in posterior tibial artery a nd biphasic in dorsalis pedis. The left MASOOD is 1.44. The left TBI is 0.43. Arterial Doppler waveforms are biphasic at the ankle. IMPRESSION: 1. Normal ABIs and decreased TBIs, consistent with arterial occlusive disease. Note that ABIs may be overestimated if arteries are calcified. Reviewed, dictated and finalized at location A. LITY MAINTENANCE HELPER
[2022-07-12 19:55] LABS: Basophils Absolute Auto 0.1 K/mm3 (0.0-0.1); Eosinophils Absolute Auto 0.4 K/mm3 (0-0.3); Eosinophils Percent Auto 6.6 % (0-4.4); Hematocrit 43.8 % (37.0-47.0); Hemoglobin 13.9 g/dL (12.0-15.0); Immature Granulocyte Absolute 0.05 K/mm3 (0.00-0.031); Immature Granulocyte Percent A 0.9 % (0-0.5); Lymphocytes Absolute Auto 1.55 K/mm3 (0.9-3.2); Lymphocytes Percent Auto 26.4 % (18.3-44.2); Mean Corpuscular HGB Conc 31.7 g/dl (32-36); Mean Corpuscular Hemoglobin 28.6 pg (26-34); Mean Corpuscular Volume 90.1 fl (80-100); Mean Platelet Volume 10.9 fl (7.4-10.4); Monocytes Absolute Auto 0.6 K/mm3 (0.1-0.6); Monocytes Percent Auto 10.2 % (2.6-8.5); Neutrophils Absolute Auto 3.2 K/mm3 (1.3-6.7); Neutrophils Percent Auto 54.9 % (45.5-73.1); Platelet Count Result 165 k/mm3 (150-375); Red Blood Count 4.86 M/mm3 (4.2-5.4); White Blood Count 5.9 K/mm3 (4.5-10.0)
--- NOTE | 2022-07-12 20:00 | ED.GENADULT ---
HPI - General Adult General Chief complaint: Extremity Injury, Lower Stated complaint: cellulitis of BLE Time Seen by Provider: 07/12/22 19:10 History of Present Illness HPI narrative: This is a 67-year-old female with a history of recurrent cellulitis presenting ED with lower extremity pain and erythema. The patient says that she developed cellulitis of her bilateral lower extremities before . She has been getting it treated on an outpatient basis using clindamycin. While she has had some improvement the left leg the right leg has been getting worse. Last year she required several rounds of IV antibiotics to cure her cellulitis. Patient denies fever, chills, nausea vomiting or diarrhea. Related Data Home Medications Medication Instructions Recorded Confirmed rivaroxaban 20 mg tablet (Xarelto) 20 mg PO DAILY 04/03/21 06/11/22 nitroglycerin 0.4 mg sublingual 0.4 mg sublingual Q5-15M PRN Chest 06/01/21 06/11/22 tablet (Nitrostat) Pain acetaminophen 500 mg tablet 500 mg PO Q6H PRN pain 08/21/21 06/11/22 (Tylenol Extra Strength) furosemide 40 mg tablet (Lasix) 40 mg PO DAILY 08/21/21 06/11/22 carvedilol 25 mg tablet 12.5 mg PO Q12H 09/25/21 06/11/22 atorvastatin 10 mg tablet 20 mg PO QHS 11/19/21 06/11/22 cholecalciferol (vitamin D3) 50 50 mcg PO QAM 04/15/22 06/11/22 mcg (2,000 unit) tablet cyclobenzaprine 10 mg tablet 10 mg PO TID PRN Muscle Spasm 04/15/22 06/11/22 Allergies Allergy/AdvReac Type Severity Reaction Status Date / Time cephalexin Allergy Unknown Diarrhea Verified 07/12/22 19:04 diphenhydramine Allergy Unknown JERKY/JUMPY, Verified 07/12/22 19:04 GO CRAZY IN MY SKIN latex Allergy Unknown Hives Verified 07/12/22 19:04 Penicillins Allergy Unknown Hives Verified 07/12/22 19:04 [facility] Past Medical History Medical History Anisocoria Asthma Asthma Bipolar disorder Body mass index (BMI) 35 or more (10/25/18) Breast cancer screening by mammogram Candidiasis Celiac disease Cellulitis of lower leg Chronic anticoagulation On Xarelto for paroxysmal atrial fibrillation/flutter. Chronic obstructive pulmonary disease Colon cancer screening Coronary artery disease Diffuse severe LAD disease with positive IFR and moderate RCA disease noted on cardiac catheterization in 2019. Managed medically. De Quervain's tenosynovitis Diabetic peripheral neuropathy Diverticulosis Elevated liver enzymes Gastroesophageal reflux disease Heart failure with reduced ejection fraction Follows with [facility]iology and Dr. Mishra. EF was 50% following MitraClip in 2019 though was her most recent ejection fraction was 20 to 25% in November 2020. Hyperlipidemia Hypersomnia Hypertension Hypothyroidism Insulin dependent type 2 diabetes mellitus Hemoglobin A1c was 8.5% on 05/16/2021. Iron deficiency anemia With history of blood transfusion. 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 Obesity, morbid, BMI 40.0-49.9 Obstructive sleep apnea Paroxysmal atrial fibrillation Paroxysmal atrial flutter Regurgitation of stomach contents Restless leg syndrome Rheumatoid arthritis Severe mitral valve regurgitation Status post MitraClip in 2019. Thyroid disease Patient no longer takes thyroid medicine. Transient ischemic attack Trigger ring finger of right hand Type 2 diabetes mellitus with hyperglycemia Urinary incontinence Surgical History Surgical History Gastric bypass status for obesity (09/2002) H/O section History of bilateral carpal tunnel release History of bladder surgery Insertion of bladder stimulator for urinary incontinence. History of cholecystectomy History of cystoscopy History of esophagogastroduodenoscopy (EGD) History of
[2022-07-12 20:03] LABS: Anion Gap 7 mmol/L (8-16); Blood Urea Nitrogen 26 mg/dL (7-17); Calcium 8.6 mg/dL (8.4-10.2); Carbon Dioxide 30 mmol/L (22-30); Chloride 102 mmol/L (98-107); Estimated CRCL calculation 75 ml/min; Estimated Glomerular Filt Rate > 60; Glucose 177 mg/dL (65-110); Potassium 4.1 mmol/L (3.4-5.0); Sodium 139 mmol/L (137-145)
[2022-07-12 20:04] LABS: Lactic Acid Reflex 0.9 mmol/L (0.7-2.0)
[2022-07-12 20:05] LABS: INR 1.3; Prothrombin Time 15.4 Seconds (11.1-14.7)
[2022-07-12 20:06] LABS: Partial Thromboplastin Time 31.2 SECONDS (22.3-36.8)
[2022-07-12 20:11] LABS: Glucose Point of Care 264 mg/dl (65-105)
[2022-07-12 20:16] LABS: Magnesium 2.4 mg/dL (1.6-2.3)
[2022-07-12 20:30] LABS: Influenza A QL RT-PCR Negative (Negative); Influenza B QL RT-PCR Negative (Negative); RSV RNA, RT-PCR Negative (Negative); SARS-CoV-2 RNA PCR Negative
[2022-07-12] MEDS: FUROSEMIDE INJ 40 MG/4 ML VIAL IV PUSH (22:48)
--- NOTE | 2022-07-12 23:20 | PC.NURSE ---
Report called to Perla WOLF
[2022-07-13] VITALS (13 sets, daily range): BP systolic 113–136; BP diastolic 56–97; PULSE 68–92; RESP 14–18; TEMP 36.2; O2SAT 94–100; BMI 42.7
[2022-07-13 00:11] LABS: Glucose Point of Care 205 mg/dl (65-105)
--- NOTE | 2022-07-13 01:08 | PM.IMHP ---
H&P: HPI History of Present Illness Date/Time: 07/13/22 02:33 Chief Complaint: Redness and swelling of lower legs Narrative: 67-year-old female with past medical history of morbid obesity, chronic venous stasis dermatitis, combined systolic heart and diastolic heart due to nonischemic cardiomyopathy and valvular disease, morbid obesity, eczema and uncontrolled type 2 diabetes mellitus who presented to the ER from home due to bilateral lower extremity erythema and redness. Majority of information was obtained from past medical records and ER records due to patient being a poor historian. According to office notes patient was seen in the office on June 16 due to shortness of breath and cough x-ray demonstrated right lower lobe atelectasis versus pneumonia. She was treated with doxycycline. She improved from a respiratory standpoint but still sits upright in a recliner due to orthopnea from heart failure. His known EF of 35-40% with valvular disease and diastolic dysfunction. She has chronic lower extremity edema. She reports that for about a week she had been having increased lower extremity edema. Then on the she developed erythema of her left leg after she abraded on the leg in the recliner. She called her primary care physician's office for follow-up and was evaluated on the . But time she arrived to the office on the her right leg was also starting to become erythematous. She was started on clindamycin at the clinic. At the time of my evaluation the patient's left leg it is not appear to be particularly erythematous or warm but does have chronic venous stasis changes. 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 The patient reports that he is having pain in both legs that is worse when she stands up. She states the pain at rest is a 5/10 intensity when he stands up it is a 9/10 in intensity. She has not been having any fevers or chills. She has chronic shortness of breath but may be having some increased shortness of breath with exertion. She is mostly non mobile due to her morbid obesity and pain as well deconditioning. She cannot state whether she is having orthopnea she sits upright in a recliner. She does not follow with a low-salt diet infectious stopped and ate a hamburger and fries before coming to the ER. At the time of my evaluation she was complaining of nausea and attributed to the pain medications that she had requested that a give her for her leg pain. She reports that her leg pain is also worse with movement of her ankle she reports that her ankles feel as if they are tight and burning. Of note there is no ankle erythema but there is some dry skin slightly cracked skin in her ankles. At the time the patient is complaining of 9/10 in intensity pain in her lower extremity she was asleep when I walked in the room. She has chronic urinary urgency and incontinence. She denies dysuria. She denies changes in bowel habits. The patient does admit to having increased confusion for the last 6-9 months. She is a relatively poor historian. Review of Systems Review of Systems: 12 systems were reviewed with pertinent positives and negatives per HPI. Except as documented in the HPI, all other systems were reviewed and are negative. However review of systems was unreliable as patient is poor historian. [facility] Past Medical History Medical History (Updated 07/13/22 @ 08:03 by Ashleigh Isaac, DO) Anisocoria Asthma With PFTs 04/2022 demonstrating good response to bronchodilator therapy with normal diffusion capacity Bipolar disorder Celiac disease Cellulitis of lower leg Cervical radiculopathy Chronic anticoagulation On Xarelto for paroxysmal atrial fibrillation/flutter. 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
[2022-07-13] MEDS: HYDROcodone/acetaminophen (*CRX) 7.5-325 MG TABLET 1 TAB PO (01:37)
[2022-07-13] MEDS: PREGABALIN (*CRX) 75 MG CAPSULE 150 MG PO ×3 (01:38→21:13)
[2022-07-13] MEDS: MELATONIN 5 MG TABLET PO ×2 (01:38→21:13)
[2022-07-13] MEDS: rOPINIRole HCL 1 MG TABLET 3 MG PO ×2 (01:38→21:13)
[2022-07-13] MEDS: SACUBITRIL/VALSARTAN 49-51 MG TABLET 1 TABLET PO ×3 (01:51→21:14)
[2022-07-13] MEDS: ATORVASTATIN 20 MG TABLET PO ×2 (01:51→21:14)
[2022-07-13] MEDS: carvediloL 12.5 MG TABLET PO ×3 (01:51→21:13)
[2022-07-13] MEDS: CYCLOBENZAPRINE HCL 10 MG TABLET PO (01:51)
--- NOTE | 2022-07-13 03:30 | ECG_ITS ---
Measurements Intervals [place] Rate: 72 P: 2 OK: 225 QRS: -68 QRSD: 174 T: 39 QT: 467 QTc: 515 Interpretive Statements SINUS RHYTHM WITH FIRST DEGREE AV BLOCK LEFT ATRIAL ENLARGEMENT RIGHT BUNDLE BRANCH BLOCK LEFT ANTERIOR FASCICULAR BLOCK BASELINE ARTIFACT- I, II, III, AVR, AVL, AVF, V1-V2 ABNORMAL ECG COMPARED TO ECG 05/14/2022 18:54:10 LEFT ANTERIOR FASCICULAR BLOCK NOW PRESENT Electronically Signed On 07-13-2022 8:03:38 PATHOLOGY LABORATORY DIRECTOR by Narinder Roche D.O.
[2022-07-13 07:03] LABS: Hemoglobin 12.8 g/dL (12.0-15.0); Mean Corpuscular Hemoglobin 27.9 pg (26-34); Mean Corpuscular Volume 87.1 fl (80-100); Mean Platelet Volume 10.9 fl (7.4-10.4); Platelet Count Result 147 k/mm3 (150-375); Red Blood Count 4.59 M/mm3 (4.2-5.4); Red Cell Distribution Width 13.9 % (11.5-14.5); White Blood Count 6.3 K/mm3 (4.5-10.0)
[2022-07-13 07:18] LABS: Anion Gap 7 mmol/L (8-16); Blood Urea Nitrogen 25 mg/dL (7-17); CRP 0.7 mg/dL (<1.0); Calcium 8.6 mg/dL (8.4-10.2); Carbon Dioxide 29 mmol/L (22-30); Chloride 100 mmol/L (98-107); Estimated CRCL calculation 86 ml/min; Estimated Glomerular Filt Rate > 60; Glucose 249 mg/dL (65-110); Potassium 4.2 mmol/L (3.4-5.0); Sodium 136 mmol/L (137-145)
[2022-07-13 08:19] LABS: Glucose Point of Care 250 mg/dl (65-105)
--- NOTE | 2022-07-13 09:11 | P.PNIM_ITS ---
Progress Note: A&P Assessment and Plan (1) Chronic venous stasis dermatitis of both lower extremities: Code(s): I87.2 - Venous insufficiency (chronic) (peripheral) Status: Acute Assessment and Plan: Chronic venous stasis dermatitis of bilateral lower extremity complicated by the patient's underlying eczema and dry skin likely resulting in subsequent seeding and cellulitis. * Skin is not feverish to touch, no fluctuance or weeping. Erythema likely due to venous insufficiency. * Not confident that patient has true cellulitis, could be mild cellulitis. * Patient started doxy to cover cellulitis - pt has penicillin and keflex allergy * WBC, CRP and Lactic are WNL * Patient without fever, chilles and body aches * Continue to monitor (2) Cellulitis: Code(s): L03.90 - Cellulitis, unspecified Status: Acute Assessment and Plan: * Patient started on doxy * Blood cultures pending * Eucerin cream added for dryness. 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 * CXR showed pulmonary edema * Pt on low sodium diet which she is non-compliant with * Due to pulmonary edema and diet noncompliance pt could be experiancing worsening lymphedema and venous stasis. * Will place patient on Lasix 40 mg IV daily. * Will monitor strict I&O's and daily weights. * Fall precautions * The patient reports she is supposed to have an outpatient echocardiogram with Dr. Mishra next week. 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 * Home long acting insulin with sliding scale * hypoglycemic protacols initiated * Accu-Cheks a.c. HS. (5) QT prolongation: Code(s): R94.31 - Abnormal electrocardiogram [ECG] [EKG] Status: Acute Assessment and Plan: QT prolongation seen on initial EKG * unable to give Zofran, Reglan or Phenergan due to this * Pt had nausea after pain medication (6) Memory loss: Code(s): R41.3 - Other amnesia Status: Acute Assessment and Plan: The patient is reporting some memory loss specifically short-term memory. * Some of the symptoms she is describing could be consistent with dementia. * She would benefit from neuro cognitive evaluation after resolution of current illness/hospitalization. * Some of the patient's symptoms that was witnessing could also be due to a sleep disorder and or poly pharmacy. 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 This is suspected to be present for approximately 2 weeks. Patient is poor historian. Cellulitis versus c
--- NOTE | 2022-07-13 09:11 | PM.IMPN ---
Progress Note: A&P Assessment and Plan (1) Chronic venous stasis dermatitis of both lower extremities: Code(s): I87.2 - Venous insufficiency (chronic) (peripheral) Status: Acute Assessment and Plan: Chronic venous stasis dermatitis of bilateral lower extremity complicated by the patient's underlying eczema and dry skin likely resulting in subsequent seeding and cellulitis. Skin is not feverish to touch, no fluctuance or weeping. Erythema likely due to venous insufficiency. Not confident that patient has true cellulitis, could be mild cellulitis. Patient started doxy to cover cellulitis - pt has penicillin and keflex allergy WBC, CRP and Lactic are WNL Patient without fever, chilles and body aches Continue to monitor (2) Cellulitis: Code(s): L03.90 - Cellulitis, unspecified Status: Acute Assessment and Plan: Patient started on doxy Blood cultures pending Eucerin cream added for dryness. 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 CXR showed pulmonary edema Pt on low sodium diet which she is non-compliant with Due to pulmonary edema and diet noncompliance pt could be experiancing worsening lymphedema and venous stasis. Will place patient on Lasix 40 mg IV daily. Will monitor strict I&O's and daily weights. Fall precautions The patient reports she is supposed to have an outpatient echocardiogram with Dr. Mishra next week. Continue home medications (4) Type 2 diabetes mellitus with hyperglycemia, with long-term current use of insulin: Code(s): E11.65 - Type 2 diabetes mellitus with hyperglycemia; Z79.4 - [facility] (current) use of insulin Status: Acute Assessment and Plan: chronic uncontrolled diabetes mellitus. Home long acting insulin with sliding scale hypoglycemic protacols initiated Accu-Cheks a.c. HS. (5) QT prolongation: Code(s): R94.31 - Abnormal electrocardiogram [ECG] [EKG] Status: Acute Assessment and Plan: QT prolongation seen on initial EKG unable to give Zofran, Reglan or Phenergan due to this Pt had nausea after pain medication (6) Memory loss: Code(s): R41.3 - Other amnesia Status: Acute Assessment and Plan: The patient is reporting some memory loss specifically short-term memory. Some of the symptoms she is describing could be consistent with dementia. She would benefit from neuro cognitive evaluation after resolution of current illness/hospitalization. Some of the patient's symptoms that was witnessing could also be due to a sleep disorder and or poly pharmacy. 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 This is suspected to be present for approximately 2 weeks. Patient is poor historian. Cellulitis versus chronic stasis dermatitis Patient is having a lot of lower extremity pain and states that it is when she bends her ankles. Patient has extremely dry skin and states that the lower legs itch. She has not had any fever or weeping of the skin. No ulcers present at this time. Patient denies chest pain, nausea, vomiting, headache and dizziness. Patient has chronic shortness of breath with associated orthopnea. Review of Systems Review of Systems: All systems reviewed & are
[2022-07-13] MEDS: buPROPion HCL XL (24 HR) 150 MG TABCR PO (10:02)
[2022-07-13] MEDS: CHOLECALCIFEROL 1,000 UNITS TABLET 2000 UNITS PO (10:02)
[2022-07-13] MEDS: SERTRALINE HCL 50 MG TABLET 200 MG PO (10:02)
[2022-07-13] MEDS: FUROSEMIDE INJ 40 MG/4 ML VIAL IV PUSH (10:02)
[2022-07-13] MEDS: INSULIN ASPART (*BKC) 100 UNITS/ML 6 UNITS SUB-Q ×2 (10:03→12:50)
[2022-07-13] MEDS: INSULIN ASPART (*BKC) 100 UNITS/ML SUB-Q ×3 (10:03→18:34)
[2022-07-13] MEDS: DOXYCYCLINE HYCLATE 100 MG TABLET PO ×2 (10:04→21:13)
[2022-07-13] MEDS: INSULIN GLARGINE (*BKC) 100 UNITS/ML 18 UNITS SUB-Q (10:11)
[2022-07-13] MEDS: traMADol HCL (*CRX) 50 MG TABLET PO ×2 (11:48→21:14)
[2022-07-13] MEDS: FERROUS SULFATE 324 MG TABLET PO (11:48)
[2022-07-13 12:08] LABS: Glucose Point of Care 225 mg/dl (65-105)
[2022-07-13] MEDS: EUCERIN CREAM 120 GM JAR 1 APPLIC TOPICAL (17:04)
[2022-07-13] MEDS: RIVAROXABAN 20 MG TABLET PO (17:06)
[2022-07-13 17:09] LABS: Glucose Point of Care 114 mg/dl (65-105)
[2022-07-14] VITALS: PULSE 69
[2022-07-14 04:00] VITALS: PULSE 68
[2022-07-14 06:00] VITALS: BP 129/81; PULSE 75; RESP 14; TEMP 36; O2SAT 98
[2022-07-14 06:37] LABS: Hematocrit 44.3 % (37.0-47.0); Hemoglobin 14.1 g/dL (12.0-15.0); Mean Corpuscular HGB Conc 31.8 g/dl (32-36); Mean Corpuscular Hemoglobin 28.6 pg (26-34); Mean Corpuscular Volume 89.9 fl (80-100); Platelet Count Result 160 k/mm3 (150-375); Red Blood Count 4.93 M/mm3 (4.2-5.4); Red Cell Distribution Width 14.2 % (11.5-14.5); White Blood Count 5.8 K/mm3 (4.5-10.0)
[2022-07-14 06:44] LABS: Anion Gap 7 mmol/L (8-16); Blood Urea Nitrogen 26 mg/dL (7-17); Calcium 8.7 mg/dL (8.4-10.2); Carbon Dioxide 31 mmol/L (22-30); Chloride 101 mmol/L (98-107); Estimated CRCL calculation 86 ml/min; Estimated Glomerular Filt Rate > 60; Glucose 217 mg/dL (65-110); Sodium 139 mmol/L (137-145)
[2022-07-14 07:49] LABS: Glucose Point of Care 172 mg/dl (65-105)
[2022-07-14] MEDS: INSULIN ASPART (*BKC) 100 UNITS/ML SUB-Q ×2 (08:10→12:27)
[2022-07-14] MEDS: INSULIN GLARGINE (*BKC) 100 UNITS/ML 18 UNITS SUB-Q (08:13)
[2022-07-14] MEDS: PREGABALIN (*CRX) 75 MG CAPSULE 150 MG PO (08:14)
[2022-07-14] MEDS: FUROSEMIDE INJ 40 MG/4 ML VIAL IV PUSH (08:14)
[2022-07-14] MEDS: SERTRALINE HCL 50 MG TABLET 200 MG PO (08:14)
[2022-07-14] MEDS: buPROPion HCL XL (24 HR) 150 MG TABCR PO (08:14)
[2022-07-14 08:15] VITALS: PULSE 70; PULSE 80
[2022-07-14] MEDS: SACUBITRIL/VALSARTAN 49-51 MG TABLET 1 TABLET PO (08:15)
[2022-07-14] MEDS: CHOLECALCIFEROL 1,000 UNITS TABLET 2000 UNITS PO (08:15)
[2022-07-14] MEDS: DOXYCYCLINE HYCLATE 100 MG TABLET PO (08:15)
[2022-07-14] MEDS: carvediloL 12.5 MG TABLET PO (08:15)
[2022-07-14 11:38] LABS: Glucose Point of Care 256 mg/dl (65-105)
[2022-07-14 12:00] VITALS: PULSE 80
[2022-07-14] MEDS: FERROUS SULFATE 324 MG TABLET PO (12:28)
--- NOTE | 2022-07-14 12:52 | P.DS_ITS ---
DS: Admitting Diagnosis Discharge Date 07/14/22 Admitting Diagnosis CHF, venous stasis, cellulitis DS: Discharge Diagnosis Discharge Diagnosis (1) Chronic venous stasis dermatitis of both lower extremities: Code(s): I87.2 - Venous insufficiency (chronic) (peripheral) Status: Acute Assessment and Plan: Chronic venous stasis dermatitis of bilateral lower extremity complicated by the patient's underlying eczema and dry skin likely resulting in subsequent seeding and cellulitis. * Skin is not feverish to touch, no fluctuance or weeping. Erythema likely due to venous insufficiency. * Not confident that patient has true cellulitis, could be mild cellulitis. * Patient started doxy to cover cellulitis - pt has penicillin and keflex allergy. * WBC, CRP and Lactic are WNL. * Patient without fever, chills and body aches. * Patient has very large pannus in this could be the reason why venous insufficiency is happening. (2) Cellulitis: Code(s): L03.90 - Cellulitis, unspecified Status: Acute Assessment and Plan: * Patient started on doxy * Blood cultures pending * Eucerin cream added for dryness. * Patient is stable with no white count, no fever and symptoms are improving on current medication regimen. * Patient is stable and okay to discharge. 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 * CXR showed pulmonary edema * Pt on low sodium diet which she is non-compliant with * Due to pulmonary edema and diet noncompliance pt could be experiancing worsening lymphedema and venous stasis. * Will place patient on Lasix 40 mg IV daily. * Will monitor strict I&O's and daily weights. * Fall precautions * The patient reports she is supposed to have an outpatient echocardiogram with Dr. 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 * Home long acting insulin with sliding scale * hypoglycemic protacols initiated * Accu-Cheks a.c. HS. (5) QT prolongation: Code(s): R94.31 - Abnormal electrocardiogram [ECG] [EKG] Status: Acute Assessment and Plan: QT prolongation seen on initial EKG * unable to give Zofran, Reglan or Phenergan due to this * Pt had nausea after pain medication (6) Memory loss: Code(s): R41.3 - Other amnesia Status: Acute Assessment and Plan: The patient is reporting some memory loss specifically short-term memory. * Some of the symptoms she is describing could be consistent with dementia. * She would benefit from neuro cognitive evaluation after resolution of current illness/hospitalization. * Some of the patient's symptoms that was witnessing could also be due to a sleep disorder and or poly pharmacy. DS: Summary Hospital Course Reason for hospitalization: CHF, chronic venous stasis, cellulitis Hospital Course: 67-year-old female with past medical history of morbid obesity, chronic venous sta
--- NOTE | 2022-07-14 12:52 | PM.DS ---
DS: Admitting Diagnosis Discharge Date 07/14/22 Admitting Diagnosis CHF, venous stasis, cellulitis DS: Discharge Diagnosis Discharge Diagnosis (1) Chronic venous stasis dermatitis of both lower extremities: Code(s): I87.2 - Venous insufficiency (chronic) (peripheral) Status: Acute Assessment and Plan: Chronic venous stasis dermatitis of bilateral lower extremity complicated by the patient's underlying eczema and dry skin likely resulting in subsequent seeding and cellulitis. Skin is not feverish to touch, no fluctuance or weeping. Erythema likely due to venous insufficiency. Not confident that patient has true cellulitis, could be mild cellulitis. Patient started doxy to cover cellulitis - pt has penicillin and keflex allergy. WBC, CRP and Lactic are WNL. Patient without fever, chills and body aches. Patient has very large pannus in this could be the reason why venous insufficiency is happening. (2) Cellulitis: Code(s): L03.90 - Cellulitis, unspecified Status: Acute Assessment and Plan: Patient started on doxy Blood cultures pending Eucerin cream added for dryness. Patient is stable with no white count, no fever and symptoms are improving on current medication regimen. Patient is stable and okay to discharge. 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 CXR showed pulmonary edema Pt on low sodium diet which she is non-compliant with Due to pulmonary edema and diet noncompliance pt could be experiancing worsening lymphedema and venous stasis. Will place patient on Lasix 40 mg IV daily. Will monitor strict I&O's and daily weights. Fall precautions The patient reports she is supposed to have an outpatient echocardiogram with Dr. Mishra 07/15/2022 (4) Type 2 diabetes mellitus with hyperglycemia, with long-term current use of insulin: Code(s): E11.65 - Type 2 diabetes mellitus with hyperglycemia; Z79.4 - [facility] (current) use of insulin Status: Acute Assessment and Plan: chronic uncontrolled diabetes mellitus. Home long acting insulin with sliding scale hypoglycemic protacols initiated Accu-Cheks a.c. HS. (5) QT prolongation: Code(s): R94.31 - Abnormal electrocardiogram [ECG] [EKG] Status: Acute Assessment and Plan: QT prolongation seen on initial EKG unable to give Zofran, Reglan or Phenergan due to this Pt had nausea after pain medication (6) Memory loss: Code(s): R41.3 - Other amnesia Status: Acute Assessment and Plan: The patient is reporting some memory loss specifically short-term memory. Some of the symptoms she is describing could be consistent with dementia. She would benefit from neuro cognitive evaluation after resolution of current illness/hospitalization. Some of the patient's symptoms that was witnessing could also be due to a sleep disorder and or poly pharmacy. DS: Summary Hospital Course Reason for hospitalization: CHF, chronic venous stasis, cellulitis Hospital Course: 67-year-old female with past medical history of morbid obesity, chronic venous stasis dermatitis, combined systolic heart and diastolic heart due to nonischemic cardiomyopathy and valvular disease, morbid obesity, eczema and uncontrolled type 2 diabetes mellitus who presented to the ER from home due to bilateral lower extremity erythema and redness.? Patient has known congestive heart failure with orthopnea and has an EF of 35-40% with valvular disease and diastolic dysfunction. She has chronic lower extremity edema. Patient has chronic shortness of breath at rest and with movement.
[2022-07-14 14:00] VITALS: BP 110/69; PULSE 68; RESP 18; TEMP 36.2; O2SAT 95
--- NOTE | 2022-07-18 14:11 | PC.NURSE ---
Blood cx are negative.
== END 2022-07-14 14:25 | disposition home or self-care (01) ==
LOC: ANHED 22:34 → ANH3MEDSUR 23:25
PROVIDERS: Internal Medicine Critical Care Medicine; Admitting Provider Internal Medicine; Emergency Provider Emergency Medicine; PCP Internal Medicine; Visit Provider Internal Medicine
DX: I87.2 Venous insufficiency (chronic) (peripheral) (principal); L03.90 Cellulitis, unspecified; J45.909 Unspecified asthma, uncomplicated; F31.9 Bipolar disorder, unspecified; I25.10 Atherosclerotic heart disease of native coronary artery without angina pectoris; M65.4 Radial styloid tenosynovitis [de Quervain]; E11.42 Type 2 diabetes mellitus with diabetic polyneuropathy; E11.65 Type 2 diabetes mellitus with hyperglycemia; K21.9 Gastro-esophageal reflux disease without esophagitis; I11.0 Hypertensive heart disease with heart failure; I50.40 Unspecified combined systolic (congestive) and diastolic (congestive) heart failure; Z20.822 Contact with and (suspected) exposure to COVID-19; I25.5 Ischemic cardiomyopathy; E78.5 Hyperlipidemia, unspecified; E03.9 Hypothyroidism, unspecified; R94.31 Abnormal electrocardiogram [ECG] [EKG]; R41.3 Other amnesia; M79.89 Other specified soft tissue disorders; R06.09 Other forms of dyspnea; L30.9 Dermatitis, unspecified; D50.0 Iron deficiency anemia secondary to blood loss (chronic); R91.8 Other nonspecific abnormal finding of lung field; K58.0 Irritable bowel syndrome with diarrhea; E66.01 Morbid (severe) obesity due to excess calories; Z68.41 Body mass index [BMI] 40.0-44.9, adult; G47.33 Obstructive sleep apnea (adult) (pediatric); I48.91 Unspecified atrial fibrillation; M06.9 Rheumatoid arthritis, unspecified; Z87.891 Personal history of nicotine dependence; Z86.73 Personal history of transient ischemic attack (TIA), and cerebral infarction without residual deficits; Z79.1 Long term (current) use of non-steroidal anti-inflammatories (NSAID); Z79.4 Long term (current) use of insulin; Z98.84 Bariatric surgery status; Z79.01 Long term (current) use of anticoagulants; Z79.899 Other long term (current) drug therapy
CPT/HCPCS: 36415; 71045; 80048; 82948; 83605; 83735; 85025; 85027; 85610; 85730; 86140; 87040; 87637; 93005; 93922; 93970; 96365; 96367; 96375; 96376; 99285; A9270; G0378; J0690; J1815; J1940

== ENCOUNTER → 2022-07-15 10:08 | Outpatient (CLI) | payer MEDICARE, SELFPAY ==
--- NOTE | ~2022-07-15 | XR_ITS ---
EXAM: XR lumbar spine 2-3V DATE: 07/15/2022 10:29 HISTORY: fall 3 months ago lbp . COMPARISON: 06/27/2021. FINDINGS: Stimulator lead projecting over the right sacrum. Likely surgical material over the stomac h. Cholecystomy clips. 5 nonrib-bearing lumbar-type vertebral bodies with intact pedicles. No signifi cant vertebral body height loss. Mild concave endplate deformities as can be seen with osteoporosis. Multilevel mild degenerative disc disease and marginal osteophytosis. Severe degenerative changes at the L5-S1 disc space. Multilevel mild facet sclerosis and hypertrophy. Aortic calcification without e vident aneurysm. IMPRESSION: Osteoporosis. Severe degenerative disc disease at L5-S1. Multilevel facet arthropathy. Reviewed, dictated and finalized at location K. DEPARTMENT HEAD
== END ==
PROVIDERS: PCP Internal Medicine; Visit Provider Pain Medicine Interventional Pain Medicine
DX: M47.27 Other spondylosis with radiculopathy, lumbosacral region (principal); M47.26 Other spondylosis with radiculopathy, lumbar region; Z79.891 Long term (current) use of opiate analgesic; F41.1 Generalized anxiety disorder; M81.0 Age-related osteoporosis without current pathological fracture; M51.37 Other intervertebral disc degeneration, lumbosacral region
CPT/HCPCS: 72100

== ENCOUNTER → 2022-10-01 15:06 | Outpatient (CLI) | payer MEDICARE, SELFPAY ==
--- NOTE | ~2022-10-01 | XR_ITS ---
EXAMINATION:XR cervical spine 4-5V DATE: 10/01/2022 15:23 INDICATION: Neck pain TECHNIQUE: AP, lateral, lateral swimmers and odontoid views of the cervical spine are provided. COMPARISON: 06/05/2015 FINDINGS: There are 2 mm of retrolisthesis of C5 on C6. The odontoid process is intact. No fracture i s identified. There is severe loss of intervertebral disc space height at C5-6. There is multilevel s evere facet and uncovertebral joint osteoarthritis. Prevertebral soft tissues are normal. IMPRESSION: 1. Moderate to severe cervical spondylosis without acute findings. Reviewed, dictated and finalized at location F.
== END ==
PROVIDERS: PCP Internal Medicine; Visit Provider Pain Medicine Interventional Pain Medicine
DX: M47.22 Other spondylosis with radiculopathy, cervical region (principal)
CPT/HCPCS: 72050

== ENCOUNTER 2022-12-29 09:12 | Outpatient (CLI) | payer MEDICARE, SELFPAY ==
[2022-12-29 15:59] LABS: Basophils Absolute Auto 0.1 K/mm3 (0.0-0.1); Eosinophils Absolute Auto 0.4 K/mm3 (0-0.3); Eosinophils Percent Auto 5.1 % (0-4.4); Hematocrit 41.1 % (37.0-47.0); Hemoglobin 13.1 g/dL (12.0-15.0); Immature Granulocyte Absolute 0.03 K/mm3 (0.00-0.031); Immature Granulocyte Percent A 0.4 % (0-0.5); Lymphocytes Absolute Auto 1.33 K/mm3 (0.9-3.2); Lymphocytes Percent Auto 19.4 % (18.3-44.2); Mean Corpuscular HGB Conc 31.9 g/dl (32-36); Mean Corpuscular Hemoglobin 27.9 pg (26-34); Mean Corpuscular Volume 87.6 fl (80-100); Mean Platelet Volume 11.4 fl (7.4-10.4); Monocytes Absolute Auto 0.6 K/mm3 (0.1-0.6); Neutrophils Absolute Auto 4.5 K/mm3 (1.3-6.7); Neutrophils Percent Auto 66.1 % (45.5-73.1); Platelet Count Result 170 k/mm3 (150-375); Red Blood Count 4.69 M/mm3 (4.2-5.4); Red Cell Distribution Width 13.7 % (11.5-14.5); White Blood Count 6.9 K/mm3 (4.5-10.0)
[2022-12-29 18:26] LABS: Alanine Aminotransferase 37 U/L (6-35); Alkaline Phosphatase 141 U/L (38-126); Anion Gap 4 mmol/L (8-16); Aspartate Amino Transferase 52 U/L (14-36); Bilirubin,Total 0.7 mg/dL (0.2-1.3); Blood Urea Nitrogen 16 mg/dL (7-17); Carbon Dioxide 30 mmol/L (22-30); Chloride 105 mmol/L (98-107); Cholesterol 169 mg/dL (0-200); Estimated Glomerular Filt Rate > 60; Glucose 205 mg/dL (65-110); HDL Direct 60 mg/dL; Potassium 4.2 mmol/L (3.4-5.0); Sodium 139 mmol/L (137-145); Triglycerides 78 mg/dL (<150)
[2022-12-29 18:38] LABS: LDL Cholesterol Direct 88 mg/dL
[2022-12-31 20:30] LABS: Hemoglobin A1C 9.1 % (<5.7)
== END 2022-12-29 09:13 | disposition home or self-care (01) ==
LOC: ANHGOSHLAB 09:13
PROVIDERS: PCP Internal Medicine; Visit Provider Clinical Nurse Specialist
DX: D50.8 Other iron deficiency anemias (principal); E11.42 Type 2 diabetes mellitus with diabetic polyneuropathy; Z79.4 Long term (current) use of insulin; E11.65 Type 2 diabetes mellitus with hyperglycemia; I48.92 Unspecified atrial flutter; E55.9 Vitamin D deficiency, unspecified
CPT/HCPCS: 36415; 80053; 80061; 82306; 82607; 83036; 84443; 85025

== ENCOUNTER 2023-01-03 11:57 | Observation (INO) | payer MEDICARE, SELFPAY ==
[2023-01-03] VITALS (19 sets, daily range): BP systolic 113–145; BP diastolic 55–84; PULSE 64–83; RESP 12–22; TEMP 36.5; O2SAT 94–100; BMI 41.6
--- NOTE | ~2023-01-03 | CT_ITS ---
EXAMINATION: CTA brain carotid DATE: 01/05/2023 16:18 INDICATION: Syncope. TECHNIQUE: Computed tomographic angiography (CTA) of the head was performed without and with 100 mL O mnipaque-350 intravenous contrast. CTA of the neck was performed with intravenous contrast. Automated exposure control and iterative reconstruction technique were employed. The dose-length product was 1 844.36 mGy-cm. Maximum intensity projection and volume rendered 3D-reconstructions were created by leydi abraham technologist on a separate workstation. COMPARISON: Head CT 01/03/2023 FINDINGS: HEAD CTA: There is no intracranial hemorrhage, acute infarction, or abnormal intracranial mass lesion . The ventricles are normal in size. There is mild mucosal thickening in the paranasal sinuses. The m astoid air cells are normal. The orbits are normal. Left vertebral artery is dominant. There is no si gnificant stenosis of basilar artery or the posterior cerebral arteries. There is no significant sten osis of the intracranial internal carotid arteries or anterior or middle cerebral arteries. Anterior communicating artery is normal. Posterior communicating arteries are not identified. There is no aneu rysm. NECK CTA: There are no pathologically enlarged lymph nodes. There is no significant stenosis of the v ertebral arteries. There is mild plaque in proximal right internal carotid artery. There is 0% stenos is of the proximal right internal carotid artery relative to normal distal artery lumen diameter (GOMEZ CET criteria). There is 0% stenosis of the proximal left internal carotid artery relative to normal d istal artery lumen diameter. There is severe cervical spondylosis. IMPRESSION: 1. Normal brain. No aneurysm or significant intracranial arterial stenosis. 2. 0% stenosis of the proximal internal carotid arteries relative to normal distal artery lumen diame ters (NASCET criteria). Reviewed, dictated and finalized at location A. IMPRESSION: 1. Normal brain. No aneurysm or significant intracranial arterial stenosis. 2. 0% stenosis of the proximal internal carotid arteries relative to normal dis tran artery lumen diameters (NASCET criteria).
--- NOTE | ~2023-01-03 | CT_ITS ---
EXAMINATION: CT brain wo con INDICATION: Dizziness, lack of coordination COMPARISON: 06/01/2020 TECHNIQUE: Standard unenhanced head CT. The dose-length product (DLP) was 605.33 mGy-cm. The mA was a djusted according to patient size. Iterative reconstruction technique was employed. FINDINGS: There is no intracranial hemorrhage, acute infarction, or abnormal mass lesion. The ventric les are normal. There is no abnormal mass effect or midline shift. The domínguez-white matter differentiat ion is normal. The basal cisterns are patent. The orbits are normal. The paranasal sinuses, mastoids and calvarium are normal. IMPRESSION: 1. No acute intracranial abnormality. Reviewed, dictated and finalized at location A.
--- NOTE | ~2023-01-03 | US_ITS ---
EXAMINATION: US carotid duplex BI DATE: 01/04/2023 10:07 INDICATION: Syncope TECHNIQUE: Grayscale, color Doppler, and pulsed Doppler images of the cervical carotid arteries were obtained. The degree of vessel stenosis is placed in one of the following categories: normal, <50%, 5 0-69%, >=70% but less than near-occlusion, near-occlusion, or total occlusion. Note that percent sten osis relative to normal distal artery lumen diameter is indirectly measured from velocity measurement s as described by Gregory, et al. Radiology 2003; 229:[id number]. COMPARISON: 11/24/2020 FINDINGS: RIGHT: The right common carotid artery (CCA) peak systolic velocity (PSV) is 85 cm/s. The right internal car otid artery (ICA) PSV is 76 cm/s. The right ICA end-diastolic velocity (EDV) is 15 cm/s. The right IC A/CCA PSV ratio is 0.9. Grayscale and color Doppler images yield an estimate of <50% diameter reducti on from plaque in the ICA. The external carotid artery (ECA) PSV is 86 cm/s. There is antegrade flow in the right vertebral artery. LEFT: The left CCA PSV is 85 cm/s. The left ICA PSV is 64 cm/s. The left ICA EDV is 15 cm/s. The left ICA/C CA PSV ratio is 0.8. Grayscale and color Doppler images yield an estimate of <50% diameter reduction from plaque in the ICA. The ECA PSV is 76 cm/s. There is antegrade flow in the left vertebral artery. IMPRESSION: 1. <50% stenosis in the right internal carotid artery. 2. <50% stenosis in the left internal carotid artery. Reviewed, dictated and finalized at location A.
--- NOTE | ~2023-01-03 | XR_ITS ---
EXAMINATION: XR chest 1V INDICATION: Weakness and right-sided paresthesia TECHNIQUE: AP view of the chest is obtained. COMPARISON: 07/12/2022 FINDINGS: The lungs are free of acute opacities. No pleural effusion or pneumothorax. The cardiomedia stinal silhouette is stable. There is severe lower cervical spondylosis. A chronic metallic device pr ojects over the left heart. IMPRESSION: 1. No acute cardiopulmonary abnormality. Reviewed, dictated and finalized at location A.
--- NOTE | 2023-01-03 11:59 | ECG_ITS ---
Measurements Intervals [place] Rate: 77 P: 50 ND: 208 QRS: 124 QRSD: 181 T: 29 QT: 439 QTc: 498 Interpretive Statements SINUS RHYTHM WITH FIRST DEGREE AV BLOCK POSSIBLE LEFT ATRIAL ENLARGEMENT RIGHT BUNDLE BRANCH BLOCK LEFT POSTERIOR FASCICULAR BLOCK ABNORMAL ECG COMPARED TO ECG 07/13/2022 04:07:35 LEFT POSTERIOR FASCICULAR BLOCK NOW PRESENT Electronically Signed On 01-03-2023 15:49:39 CDT by Narinder Roche D.O.
[2023-01-03 12:20] LABS: Basophils Absolute Auto 0.1 K/mm3 (0.0-0.1); Basophils Percent Auto 1.1 % (0.2-1.2); Eosinophils Absolute Auto 0.4 K/mm3 (0-0.3); Eosinophils Percent Auto 6.2 % (0-4.4); Hematocrit 45.1 % (37.0-47.0); Hemoglobin 14.7 g/dL (12.0-15.0); Immature Granulocyte Absolute 0.03 K/mm3 (0.00-0.031); Immature Granulocyte Percent A 0.5 % (0-0.5); Lymphocytes Absolute Auto 1.22 K/mm3 (0.9-3.2); Lymphocytes Percent Auto 18.5 % (18.3-44.2); Mean Corpuscular HGB Conc 32.6 g/dl (32-36); Mean Corpuscular Hemoglobin 28.5 pg (26-34); Mean Corpuscular Volume 87.4 fl (80-100); Mean Platelet Volume 10.4 fl (7.4-10.4); Monocytes Absolute Auto 0.5 K/mm3 (0.1-0.6); Monocytes Percent Auto 7.8 % (2.6-8.5); Neutrophils Absolute Auto 4.3 K/mm3 (1.3-6.7); Neutrophils Percent Auto 65.9 % (45.5-73.1); Platelet Count Result 174 k/mm3 (150-375); Red Blood Count 5.16 M/mm3 (4.2-5.4); Red Cell Distribution Width 13.9 % (11.5-14.5); White Blood Count 6.6 K/mm3 (4.5-10.0)
[2023-01-03 12:35] LABS: Alanine Aminotransferase 30 U/L (6-35); Albumin Level 4.4 g/dL (3.5-5.1); Alkaline Phosphatase 123 U/L (38-126); Anion Gap 6 mmol/L (8-16); Aspartate Amino Transferase 26 U/L (14-36); Bilirubin,Total 0.7 mg/dL (0.2-1.3); Blood Urea Nitrogen 24 mg/dL (7-17); Calcium 9.2 mg/dL (8.4-10.2); Carbon Dioxide 33 mmol/L (22-30); Chloride 100 mmol/L (98-107); Estimated CRCL calculation 67 ml/min; Estimated Glomerular Filt Rate > 60; Glucose 308 mg/dL (65-110); Potassium 4.5 mmol/L (3.4-5.0); Sodium 139 mmol/L (137-145)
[2023-01-03 12:44] LABS: INR 1.3; Prothrombin Time 16.9 Seconds (11.1-14.7)
[2023-01-03 12:45] LABS: Troponin I < 0.012 ng/mL (0.000-0.034)
[2023-01-03 12:46] LABS: Partial Thromboplastin Time 32.5 SECONDS (22.3-36.8)
[2023-01-03 13:00] LABS: Glucose Point of Care 334 mg/dl (65-105)
--- NOTE | 2023-01-03 14:37 | ED.WEAKNESS ---
HPI - Weakness General Chief complaint: Weakness <MEI Duff Last Filed: 01/03/23 17:49> Stated complaint: syncope <MEI Duff Last Filed: 01/03/23 17:49> Time Seen by Provider: 01/03/23 13:27 <MEI Duff Last Filed: 01/03/23 17:49> Source: patient <MEI Duff Last Filed: 01/03/23 17:49> Mode of arrival: ambulatory <MEI Duff Last Filed: 01/03/23 17:49> Limitations: no limitations <MEI Duff Last Filed: 01/03/23 17:49> History of Present Illness HPI Narrative: Patient is a 67-year-old female who presents to the ED with report of possible syncopal episodes. Patient reports around 4 AM this morning, she went to the bathroom and states she either fell asleep or had a syncopal episode. When she woke up, she realized she had fallen and was face first into her bathtub. She states she does not remember this episode. She was able to get up on her own and walk back to bed. Patient was then holding her 7-month-old grandchild this morning when she again either fell asleep or had another syncopal episode and dropped the child onto the ground. Patient reports she has had issues with falling asleep intermittently over the last several years, but never this bad. She complains of generalized weakness, diffuse upper extremity paresthesias, lightheadedness, and states she has had difficulty getting her words out at times. She denies any slurred speech, focal weakness, vision changes, chest pain, difficulty breathing, nausea, vomiting, fevers, recent illness. <MEI Duff Last Filed: 01/03/23 17:49> Related Data Home medications: Home Medications Medication Instructions Recorded Confirmed rivaroxaban 20 mg tablet (Xarelto) 20 mg PO DAILY 04/03/21 12/31/22 nitroglycerin 0.4 mg sublingual 0.4 mg sublingual Q5-15M PRN Chest 06/01/21 12/31/22 tablet (Nitrostat) Pain acetaminophen 500 mg tablet 500 mg PO Q6H PRN pain 08/21/21 12/31/22 (Tylenol Extra Strength) furosemide 40 mg tablet (Lasix) 40 mg PO DAILY 08/21/21 12/31/22 carvedilol 25 mg tablet 12.5 mg PO Q12H 09/25/21 12/31/22 cholecalciferol (vitamin D3) 50 50 mcg PO QAM 04/15/22 12/31/22 mcg (2,000 unit) tablet cyclobenzaprine 10 mg tablet 10 mg PO TID PRN Muscle Spasm 04/15/22 12/31/22 vibegron 75 mg tablet (Gemtesa) 75 mg PO DAILY 12/31/22 12/31/22 <Lynn Gomes PA-C - Last Filed: 01/03/23 17:49> Allergies/Adverse reactions: Allergies Allergy/AdvReac Type Severity Reaction Status Date / Time cephalexin Allergy Unknown Diarrhea Verified 12/31/22 09:29 diphenhydramine Allergy Unknown JERKY/JUMPY, Verified 12/31/22 09:29 GO CRAZY IN MY SKIN latex Allergy Unknown Hives Verified 12/31/22 09:29 Penicillins Allergy Unknown Hives Verified 12/31/22 09:29 <Lynn Gomes PA-C - Last Filed: 01/03/23 17:49> Review of Systems Review of Systems: CONSTITUTIONAL: Denies fever, chills, or sweats. EYES: Denies visual changes. CARDIOVASCULAR: Denies chest pain. RESPIRATORY: Denies dyspnea. GASTROINTESTINAL: Denies abdominal pain, nausea, vomiting, or diarrhea. GENITOURINARY: Denies dysuria or hematuria. NEUROLOGIC: See HPI. <Lynn Gomes PA-C - Last Filed: 01/03/23 17:49> All systems reviewed & are unremarkable except as noted in HPI and below <Lynn Gomes PA-C - Last Filed: 01/03/23 17:49> PMFSH Past Medical History Medical History: Medical History ANDREA (acute kidney injury) Anisocoria Arterial occlusive disease Asthma With PFTs 04/2022 demonstrating good response to bronchodilator therapy with normal diffusion capacity Bilateral cellulitis of lower leg Bipolar disorder Celiac disease Cellulitis Cellulitis of lower extremity Cellulitis of lower leg Cervical radiculopathy Chest pain Chronic
[2023-01-03 15:12] LABS: NT Pro B Type Natriuretic Pept 192 pg/mL (19.9-100)
[2023-01-03 15:55] LABS: Troponin I 0.018 ng/mL (0.000-0.034)
[2023-01-03 16:01] LABS: Appearance Urine Clear (Clear); Bacteria Urine 1+ /hpf; Bilirubin Urine Negative (Negative); Color Urine Yellow (Yellow); Glucose Urine UA 3+ mg/dL (Negative); Ketones Urine Negative (Negative); Leukocyte Esterase Ur Negative LEU/UL (Negative); Nitrate Urine Negative (Negative); Non Pathogenic Casts 0-2; Protein Urine Negative (Negative); RBC Urine 0-2 /hpf (0-2); Specific Grav Ur 1.018 (1.001-1.035); Squamous Epithelial Cell Urine Occasional /hpf (Few); Urobilinogen Urine 0.2 mg/dL (<2.0); WBC Urine 0-5 /hpf; pH Urine 5.5 (5.0-9.0)
[2023-01-03 16:03] LABS: Add Urine Microscopic? YES
[2023-01-03 18:49] LABS: Troponin I < 0.012 ng/mL (0.000-0.034)
--- NOTE | 2023-01-03 18:51 | PC.NURSE ---
This patient, Charlene Chen, was admitted to 2 Medical Room 251-01. Patient/family oriented to hospital policies and general routines including ID bracelet, bed and alarms, visiting hours, pain management, procedures, bathroom and other care routines, personal items, smoking policy, room service/diet, and visiting hours. Information on how to activate the Rapid Response Team has been discussed. Patient/Family are encouraged to report perceived risks to care and to ask questions if they do not understand what they are told or what they should do.
--- NOTE | 2023-01-03 18:52 | PM.IMHP ---
H&P: HPI History of Present Illness Date/Time: 01/03/23 17:30 Chief Complaint: Syncope. Narrative: This is a 67-year-old female with combined systolic and diastolic congestive heart failure with improved ejection fraction, paroxysmal atrial fibrillation and flutter on chronic anticoagulation, insulin dependent diabetes, and other comorbidities who presented to the emergency department via private vehicle from home for evaluation after a syncopal episode. The patient provides the following history. She got up to use the restroom at about 04:00 and she remembers urinating without issue and suddenly she found herself leaning forward into the bathtub but she was able to catch herself with her hands. She thought perhaps she had a syncopal episode or maybe she even fell asleep. She was able to get herself up and go back to bed. Later on this morning while sitting down holding her 7-month-old granddaughter she had a similar episode. The patient goes on to say that she has had multiple similar episodes over the years but she has never had a workup for syncope. With further questioning she admits that she is tired a lot and she falls asleep easily and she cannot say for certain whether not she has been falling asleep with these episodes or if she loses is in fact losing consciousness. She does not recall having prodromes prior to these episodes however when she was urinating this morning she did feel may be little bit lightheaded. She has a history of sleep apnea but was told she no longer had to use her CPAP after weight loss and a recent sleep study showing no evidence of sleep-related breathing disorder. Her vital signs were stable on arrival to the emergency department. Labs were pretty unremarkable aside from a random glucose of 308. Brain CT and chest x-ray did not show any acute findings. She is being admitted in this setting for workup for possible syncope. Currently she has no complaints. She denies headache, vertigo, focal weakness, paresthesias, dizziness, chest pain, pleuritic pain, palpitations, sensations of racing heart, shortness of breath, nausea, vomiting, diarrhea, and dysuria. Review of Systems Review of Systems: Twelve systems were reviewed and are negative except for as per HPI. [facility] Past Medical History Medical History (Updated 01/04/23 @ 16:48 by Ameena Alberts PA-C) Arterial occlusive disease Asthma With PFTs 04/2022 demonstrating good response to bronchodilator therapy with normal diffusion capacity Bipolar disorder Celiac disease Cervical radiculopathy Chronic anticoagulation On Xarelto for paroxysmal atrial fibrillation/flutter. 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 She had a catheterization that demonstrated minimal coronary artery disease May 2020 and had aMitra clip procedure with improvement in her mitral valve regurgitation with repeat echo June 2021 mild to moderately impaired left ventricular function with calculated EF of 35% visually appeared to be 40-45 range grade 2 diastolic dysfunction with moderate reduction of global longitudinal strain consistent with systolic dysfunction, left atrial chamber moderately enlarged, normally functioning mitral valve clip with mild mitral valve regurgitation Coronary artery disease Diffuse severe LAD disease with positive IFR and moderate RCA disease noted on cardiac catheterization in 2019. Managed medically. De Quervain's tenosynovitis Diabetic peripheral neuropathy Diverticulosis Eczema Gastroesophageal reflux disease Hyperlipidemia Hypertension Hypothyroidism Insulin dependent type 2 diabetes mellitus Hemoglobin A1c was 9.7% on 04/10/2022 Iron deficiency anemia With history of blood transfusion. Irritable bowel syndrome with diarrhea Kidney stones Mor
[2023-01-03 19:27] LABS: Glucose Point of Care 252 mg/dl (65-105)
[2023-01-03] MEDS: INSULIN ASPART (*BKC) 100 UNITS/ML SUB-Q (20:19)
[2023-01-03] MEDS: CYCLOBENZAPRINE HCL 10 MG TABLET PO (22:08)
[2023-01-03] MEDS: TOLNAFTATE 1% POWDER 45 GM BTL 1 APPLIC TOPICAL (22:09)
[2023-01-03] MEDS: ATORVASTATIN 10 MG TABLET PO (22:10)
[2023-01-03] MEDS: rOPINIRole HCL 1 MG TABLET 3 MG PO (22:10)
[2023-01-03] MEDS: carvediloL 12.5 MG TABLET PO (22:10)
[2023-01-03] MEDS: SACUBITRIL/VALSARTAN 49-51 MG TABLET 1 TABLET PO (22:11)
[2023-01-03] MEDS: RIVAROXABAN 20 MG TABLET PO (22:12)
[2023-01-03] MEDS: PREGABALIN (*CRX) 75 MG CAPSULE 150 MG PO (22:17)
[2023-01-03] MEDS: MELATONIN 5 MG TABLET PO (22:18)
[2023-01-04] VITALS (19 sets, daily range): BP systolic 86–136; BP diastolic 52–98; PULSE 62–118; RESP 16–18; TEMP 36.2–36.6; O2SAT 95–100
[2023-01-04 05:15] LABS: Hemoglobin 13.5 g/dL (12.0-15.0); Mean Corpuscular HGB Conc 32.1 g/dl (32-36); Mean Corpuscular Hemoglobin 28.3 pg (26-34); Mean Corpuscular Volume 88.1 fl (80-100); Mean Platelet Volume 10.2 fl (7.4-10.4); Platelet Count Result 147 k/mm3 (150-375); Red Blood Count 4.77 M/mm3 (4.2-5.4); Red Cell Distribution Width 13.8 % (11.5-14.5); White Blood Count 6.6 K/mm3 (4.5-10.0)
[2023-01-04 05:26] LABS: Alanine Aminotransferase 24 U/L (6-35); Albumin Level 3.5 g/dL (3.5-5.1); Alkaline Phosphatase 122 U/L (38-126); Anion Gap -2 mmol/L (8-16); Aspartate Amino Transferase 24 U/L (14-36); Bilirubin,Total 0.6 mg/dL (0.2-1.3); Blood Urea Nitrogen 18 mg/dL (7-17); Calcium 8.7 mg/dL (8.4-10.2); Carbon Dioxide 37 mmol/L (22-30); Chloride 102 mmol/L (98-107); Estimated CRCL calculation 84 ml/min; Estimated Glomerular Filt Rate > 60; Glucose 240 mg/dL (65-110); Magnesium 2.2 mg/dL (1.6-2.3); Potassium 4.5 mmol/L (3.4-5.0); Sodium 137 mmol/L (137-145)
[2023-01-04] MEDS: CYCLOBENZAPRINE HCL 10 MG TABLET PO (05:45)
[2023-01-04 08:33] LABS: Glucose Point of Care 237 mg/dl (65-105)
[2023-01-04] MEDS: INSULIN ASPART (*BKC) 100 UNITS/ML 6 UNITS SUB-Q ×3 (08:47→17:23)
[2023-01-04] MEDS: INSULIN ASPART (*BKC) 100 UNITS/ML SUB-Q ×3 (08:48→17:24)
[2023-01-04] MEDS: HYDROcodone/acetaminophen (*CRX) 7.5-325 MG TABLET 1 TAB PO ×2 (08:54→21:43)
[2023-01-04] MEDS: SERTRALINE HCL 50 MG TABLET 200 MG PO (08:55)
[2023-01-04] MEDS: carvediloL 12.5 MG TABLET PO (08:55)
[2023-01-04] MEDS: buPROPion HCL XL (24 HR) 150 MG TABCR PO (08:55)
[2023-01-04] MEDS: FUROSEMIDE 40 MG TABLET PO (08:55)
[2023-01-04] MEDS: FERROUS SULFATE 324 MG TABLET PO (08:56)
[2023-01-04] MEDS: SACUBITRIL/VALSARTAN 49-51 MG TABLET 1 TABLET PO ×2 (08:56→21:44)
[2023-01-04] MEDS: INSULIN GLARGINE (*BKC) 100 UNITS/ML 18 UNITS SUB-Q (08:56)
[2023-01-04] MEDS: TOLNAFTATE 1% POWDER 45 GM BTL 1 APPLIC TOPICAL ×3 (09:00→17:25)
[2023-01-04] MEDS: PREGABALIN (*CRX) 75 MG CAPSULE 150 MG PO ×2 (09:00→21:43)
--- NOTE | 2023-01-04 11:21 | PM.IMPN ---
Progress Note: A&P Assessment and Plan (1) Syncopal episodes: Qualifiers: Syncope type: unspecified Qualified Code(s): R55 - Syncope and collapse Code(s): R55 - Syncope and collapse Status: Acute Assessment and Plan: History of atrial fibrillation. Heart rate controlled. Patient will likely need Holter monitor on discharge. Cardiology consult. 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 Weight: 113.5 kg. BMI: 41.6. HEENT: Normocephalic, atraumatic. PERRL, EOMI. Sclera anicteric. Tacky mucous membranes. Neck: Supple. No obvious carotid bruits. Respiratory: Lungs are clear to auscultation bilaterally. Cardiovascular: Regular rate and rhythm with S1-S2. Soft systolic murmur at the left sternal border. Gastrointestinal: Abdomen is soft, nontender, and nondistended with positive bowel sounds. Skin: Warm and dry. Chronic skin changes of the lower legs. Extremities: No cyanosis or clubbing. Legs are large with nonpitting edema. Neurological: Alert and oriented x4. Cranial nerves 2-12 are grossly intact. Speech is clear. No facial asymmetry. Hand shirring tender and foot pushes are weak but equal bilaterally. No pronator drift. No gross focal deficits to casual conversation. Psychiatric: Pleasant cooperative with appropriate mood and affect. Objective Data Vital Signs Vital Signs: Vital Signs - 24 hr 07/01/23 13:00 01/03/23 14:15 01/03/23 12:53 Temperature Pulse Rate 76 66 77 Respiratory Rate 12 16 16 Blood Pressure 113/55 L 122/84 113/63 Pulse Oximetry 97 97 98 Oxygen Delivery 01/03/23 13:00 01/03/23 13:15 01/03/23 13:30 Temperature Pulse Rate 75 71 71 Respiratory Rate 17 15 18 Blood Pressure 117/64 Pulse Oximetry 96 94 97 Oxygen Delivery 01/03/23 13:31 01/03/23 13:45 01/03/23 14:00 Temperature Pulse Rate 71 83 67 Respiratory Rate 16 19 15 Blood Pressure 122/84 Pulse Oximetry 96 95 96 Oxygen Delivery 01/03/23 14:01 01/03/23 14:15 01/03/23 14:31 Temperature Pulse Rate 68 66 66 Respiratory Rate 18 17 16 Blood Pressure Pulse Oximetry 98 96 96 Oxygen Delivery 01/03/23 14:45 01/03/23 15:01 01/03/23 15:07 Temperature Pulse Rate 64 68 67 Respiratory Rate 15 13 12 Blood Pressure 145/71 H Pulse Oximetry 97 99 97 Oxygen Delivery 01/03/23 15:15 01/03/23 17:20 01/03/23 18:28 Temperature Pulse Rate 66 76 68 Respiratory Rate 15 22 H 14 Blood Pressure 140/79 138/78 Pulse Oximetry 100 98 100 Oxygen Delivery 01/03/23 19:02 01/03/23 22:10 01/03/23 20:30 Temperature 97.7 F Pulse Rate 70 65 Respiratory Rate 18 Blood Pressure 145/78 H Pulse Oximetry 96 Oxygen Delivery Room Air 01/03/23 20:00 01/04/23 00:00 01/04/23 04:00 Temperature Pulse Rate 65 66 63 Respiratory Rate Blood Pressure Pulse Oximetry Oxygen Delivery 01/04/23 05:13 01/04/23 05:15 01/04/23 05:19 Temperature 98 F Pulse Rate 69 74 70 Respiratory Rate 16 Blood Pressure 136/85 136/85 132/68 Pulse Oximetry 10
[2023-01-04 12:16] LABS: Glucose Point of Care 233 mg/dl (65-105)
--- NOTE | 2023-01-04 12:54 | PCPTNOTE ---
Attempted to see for PT evaluation, pt states she cannot seem to stay awake and is afraid she is going to fall. Requested to come back tomorrow. Will continue to follow.
--- NOTE | 2023-01-04 14:04 | PM.CNCAR ---
Assessment and Plan Assessment and plan (1) Excessive sleepiness: Code(s): G47.10 - Hypersomnia, unspecified Status: Acute Assessment and Plan: As she has had several episodes while on telemetry without any associated tachy bradyarrhythmia or high-grade AV block there is no evidence for an arrhythmia contribution to her symptoms. She clearly delineates lightheadedness with position change as completely different than her symptoms occurring very transiently while seated or at rest. She describes this as an inability to remain awake but only very briefly clinically concerning for narcolepsy. Patient does not describe clear evidence of syncope or even near syncope. She is not exhibiting exertional anginal symptoms, she is not decompensated heart failure. She is hemodynamically stable with mild orthostasis again different in her symptoms as described. She is not anemic denies recent illness, bleeding complications or significant change medications. There is no evidence of acute stroke or focal neurologic finding on exam or CT head as reviewed. Patient also describes memory problems which have progressed and weakness her legs with ambulation. A constellation of symptoms are more concerning for neurologic contribution as such I strongly recommend neurology consultation further workup for narcolepsy. Discussed at great length with the patient who verbalized understanding and agreed with plan of care. No further cardiac workup indicated at this time unless new concerns arise. May continue telemetry while in the hospital but I do not anticipate she will require acid loader upon discharge as we clearly have seen she does not have an arrhythmia in conjunction with these episodes. Her medical regimen needs to be reassessed with regards to potential contribution and or medication side effects. Therefore, we will see the patient on an as-needed basis. Please do not hesitate contacted with additional questions or concerns. She will follow-up with Dr. Mishra as an outpt in 4 weeks. I do not feel repeat echocardiogram will alter her management as her exam is unremarkable and echo is stable from 08/2022. (2) Coronary artery disease: Qualifiers: Coronary Disease-Associated Artery/Lesion type: unga artery [place] vs. transplanted heart: unga heart Associated angina: without angina Qualified Code(s): I25.10 - Atherosclerotic heart disease of unga coronary artery without angina pectoris Code(s): I25.10 - Atherosclerotic heart disease of unga coronary artery without angina pectoris Status: Acute Assessment and Plan: Stable, no anginal symptoms. Continue atorvastatin 10 mg bedtime, carvedilol to 12.5 mg twice daily. (3) Paroxysmal atrial fibrillation: Code(s): I48.0 - Paroxysmal atrial fibrillation Status: Acute Assessment and Plan: Maintaining sinus rhythm with underlying conduction abnormalities including first-degree AV block and right bundle-branch block. These findings are not new. No change recommended at this time. Continue systemic anticoagulation with Xarelto 20 mg daily. Monitor for bleeding. Caution with ambulation. She has not had falls with injury yet she remains at high risk for bleeding complications should she fall and ordered develop syncope in which case it also may need to be discontinued to avoid potential risk for catastrophic bleeding. At this time she does not have an absolute contraindication but niece needs to be assessed monitor closely. She has mild thrombocytopenia but no evidence for bleeding. (4) Orthostasis: Code(s): I95.1 - Orthostatic hypotension Status: Acute Assessment and Plan: She has mild orthostasis. Continue to push fluids. This is a separate issue from that described prompting admission. Continue to monitor orthostasis daily. Monitor BP. Ambulate with caution to avoid risk for falls and injuries, rise slowly from seat
[2023-01-04 17:01] LABS: Glucose Point of Care 251 mg/dl (65-105)
[2023-01-04 20:32] LABS: Glucose Point of Care 281 mg/dl (65-105)
[2023-01-04] MEDS: rOPINIRole HCL 1 MG TABLET 3 MG PO (21:44)
[2023-01-04] MEDS: RIVAROXABAN 20 MG TABLET PO (21:44)
[2023-01-04] MEDS: ATORVASTATIN 10 MG TABLET PO (21:44)
[2023-01-04] MEDS: MELATONIN 5 MG TABLET PO (21:45)
[2023-01-05] VITALS (12 sets, daily range): BP systolic 105–129; BP diastolic 56–77; PULSE 71–88; RESP 17–18; TEMP 36.2–37.2; O2SAT 96–98
[2023-01-05 08:38] LABS: Glucose Point of Care 194 mg/dl (65-105)
[2023-01-05] MEDS: buPROPion HCL XL (24 HR) 150 MG TABCR PO (08:57)
[2023-01-05] MEDS: FUROSEMIDE 40 MG TABLET PO (08:57)
[2023-01-05] MEDS: SERTRALINE HCL 50 MG TABLET 200 MG PO (08:57)
[2023-01-05] MEDS: FERROUS SULFATE 324 MG TABLET PO (08:57)
[2023-01-05] MEDS: SACUBITRIL/VALSARTAN 49-51 MG TABLET 1 TABLET PO ×2 (08:57→20:34)
[2023-01-05] MEDS: INSULIN GLARGINE (*BKC) 100 UNITS/ML 18 UNITS SUB-Q (08:58)
[2023-01-05] MEDS: PREGABALIN (*CRX) 75 MG CAPSULE 150 MG PO ×2 (08:58→20:34)
[2023-01-05] MEDS: INSULIN ASPART (*BKC) 100 UNITS/ML 6 UNITS SUB-Q ×3 (08:58→17:48)
[2023-01-05] MEDS: TOLNAFTATE 1% POWDER 45 GM BTL 1 APPLIC TOPICAL ×2 (08:58→17:49)
--- NOTE | 2023-01-05 10:52 | WPDNEURCNPN ---
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 She has been having brief transient episodes of loss of consciousness that may be concerning for narcolepsy. - CTA brain to evaluate for posterior circulation insufficiency - MRI brain to evaluate for cause of dysmetria on exam -- unable to do during this admission due to patient's bladder stimulator. Can be done as outpatient at an imaging facility that can accommodate the stimulator - Will need outpatient sleep medicine evaluation for MSLT Consult date: 01/05/23 Reason for consult: Narcolepsy HPI: Charlene Chen is a 67 year old female with a history of CHF, paroxysmal atrial fibrillation, diabetes who presented due to concerns for syncope. On day of presentation patient had a syconpal episode while urinating. She has had multiple episodes while seated where she briefly loses consciousness. She reports hypersomnolence during the day and falls asleep easily. She denies any prodromal symptoms prior to the syncopal episodes. On occasion, she does have positional lightheadedness, but this is completely separate the episodes of loss of consciousness that she has been having. She has a prior history of NICHOLE but no longer uses a CPAP machine. During the admission patient has reportedly had episodes of transient loss of consciousness that are not associated with any major changes on telemetry. Cardiology was consulted for possible cardiogenic etiology of syncope, but they feel that this is non cardiogenic in etiology, but rather concerning for possible narcolepsy. Ms. Chen reports that she started having these spells years ago but they had self resolved. She recently had a sleep study done but does not know the results of the studies. She denies any preceding hallucinations before losing consciousness. These episodes are not triggered by strong emotion. She is no longer driving. The episodes have occurred at times while standing and sitting. Carotid doppler study has been done which showed <50% stenosis bilaterally. Review of Systems Constitutional: Constitutional: Denies chills, Denies fever(s) and Denies weight loss Eyes: Eyes: Denies diplopia and Denies loss of vision ENT: Reports dizziness, Denies hearing loss and Denies tinnitus Cardiovascular: Cardiovascular: Denies chest pain, Denies syncope and Denies dyspnea Respiratory: Respiratory: Denies cough, Denies dyspnea and Denies wheezing Gastrointestinal: Gastrointestinal: Denies abdominal pain, Denies change in bowel habits and Denies vomiting Genitourinary: Genitourinary: Denies urinary incontinence Musculoskeletal: Musculoskeletal: Reports arthralgias and Denies joint swelling Integumentary/Breasts: Skin/Breast: Reports dry skin, Denies new lesions and Reports rash Neurologic: Reports as per HPI, Reports dizziness, Denies syncope and Denies loss of vision Psychiatric: Psychiatric: Reports anxiety and Reports depression Endocrine: Endocrine: Denies cold intolerance and Denies heat intolerance Hematologic/Lymphatic: Hematologic/Lymphatic: Denies easy bleeding and Denies easy bruising Allergi
--- NOTE | 2023-01-05 11:20 | PCPTNOTE ---
On 01/05/23, the student, [Melissa Ruiz], provided care and completed [facility] documentation on this patient. I have reviewed the student's documentation and agree with the findings.
--- NOTE | 2023-01-05 11:51 | PM.IMPN ---
Progress Note: A&P Assessment and Plan (1) Syncopal episodes: Qualifiers: Syncope type: unspecified Qualified Code(s): R55 - Syncope and collapse Code(s): R55 - Syncope and collapse Status: Acute Assessment and Plan: Episodes are not likely syncope. (2) Excessive sleepiness: Code(s): G47.10 - Hypersomnia, unspecified Status: Acute Assessment and Plan: Question narcolepsy. Neuro consult pending. 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 Weight: 113.5 kg. BMI: 41.6. HEENT: Normocephalic, atraumatic. PERRL, EOMI. Sclera anicteric. Tacky mucous membranes. Neck: Supple. No obvious carotid bruits. Respiratory: Lungs are clear to auscultation bilaterally. Cardiovascular: Regular rate and rhythm with S1-S2. Soft systolic murmur at the left sternal border. Gastrointestinal: Abdomen is soft, nontender, and nondistended with positive bowel sounds. Skin: Warm and dry. Chronic skin changes of the lower legs. Extremities: No cyanosis or clubbing. Legs are large with nonpitting edema. Neurological: Alert and oriented x4. Cranial nerves 2-12 are grossly intact. Speech is clear. No facial asymmetry. Hand data reviewer and foot pushes are weak but equal bilaterally. No pronator drift. No gross focal deficits to casual conversation. Psychiatric: Pleasant cooperative with appropriate mood and affect. Objective Data Vital Signs Vital Signs: Vital Signs - 24 hr 01/04/23 13:27 01/04/23 13:28 01/04/23 13:32 Temperature 97.1 F L 97.3 F L 97.3 F L Pulse Rate 68 75 80 Respiratory Rate 16 18 18 Blood Pressure 132/98 H 86/66 L 95/72 L Pulse Oximetry 98 96 95 Oxygen Delivery 01/04/23 13:36 01/04/23 12:04 01/04/23 16:00 Temperature 97.1 F L Pulse Rate 68 65 66 Respiratory Rate 16 Blood Pressure 132/98 H Pulse Oximetry 98 Oxygen Delivery 01/04/23 20:48 01/04/23 20:51 01/04/23 20:55 Temperature 97.7 F 97.9 F 97.9 F Pulse Rate 77 79 118 H Respiratory Rate 18 18 18 Blood Pressure 108/60 114/64 98/52 L Pulse Oximetry 96 98 98 Oxygen Delivery 01/04/23 21:39 01/04/23 20:00 01/04/23 20:00 Temperature Pulse Rate 80 77 80 Respiratory Rate 18 Blood Pressure Pulse Oximetry 98 Oxygen Delivery Room Air 01/05/23 00:00 01/05/23 04:00 01/05/23 05:39 Temperature 98.9 F Pulse Rate 72 71 72 Respiratory Rate 17 Blood Pressure 108/77 Pulse Oximetry 98 Oxygen Delivery 01/05/23 08:21 01/05/23 08:00 Temperature Pulse Rate 72 Respiratory Rate 17 Blood Pressure Pulse Oximetry 98 Oxygen Delivery Room Air Room Air Intake/Output Intake/Output: Intake & Output 01/02/23 01/03/23 01/04/23 01/05/23 23:59 23:59 23:59 23:59 Intake Total 1292 270 Output Total 400 1150 Balance -400 142 270 Meds/Results Medications: Active Medications Generic Name Dose Route Start Last Admin Trade Name Freq PRN Reason Stop Dose Admin Acetaminophen 500 mg 01/03/23 21:00 Acetaminophen 500 Mg Tablet PO Q6H PRN PAIN RATED 1-3 Acetaminophen 650 mg 01/03/23 23:40 Acetaminophen 325 Mg Tablet PO Q6H PRN
[2023-01-05 12:13] LABS: Glucose Point of Care 262 mg/dl (65-105)
[2023-01-05] MEDS: INSULIN ASPART (*BKC) 100 UNITS/ML SUB-Q ×2 (12:43→17:48)
--- NOTE | 2023-01-05 14:37 | PCCCNOTE ---
On 01/05/23, the student, [Yolie Duvall ], provided care and completed [facility] documentation on this patient. I have reviewed the student's documentation and agree with the findings.
--- NOTE | 2023-01-05 14:55 | PHAR ---
pt's home med gemtesa 75 mg tabs verified by pharmacy
[2023-01-05 17:30] LABS: Glucose Point of Care 333 mg/dl (65-105)
[2023-01-05 20:07] LABS: Glucose Point of Care 304 mg/dl (65-105)
[2023-01-05] MEDS: carvediloL 12.5 MG TABLET PO (20:34)
[2023-01-05] MEDS: rOPINIRole HCL 1 MG TABLET 3 MG PO (20:35)
[2023-01-05] MEDS: MELATONIN 5 MG TABLET PO (20:35)
[2023-01-05] MEDS: RIVAROXABAN 20 MG TABLET PO (20:35)
[2023-01-05] MEDS: ATORVASTATIN 10 MG TABLET PO (20:35)
--- NOTE | 2023-01-05 23:40 | ECHO_ITS ---
Patient Info Name: Charlene Chen Age: 67 years : 1955 Gender: Female Ht: 65 in Wt: 250 lbs BSA: 2.34 m2 HR: 72 bpm BP: 108 / 77 mmHg Heart Rhythm: Sinus Rhythm Technical Quality: Fair Exam Date: 01/05/2023 10:36 AM Exam Location: [facility] Pulmonary Exam Room: 251 Patient Status: Inpatient Admit Date: 01/03/2023 Staff Ordering Physician: Ameena Alberts PA-C [employer] Supervisor: Eve Kothari RDCS Attending Provider: Tone Boogie MD Referring Physician: Aristeo GUEVARA; Exam Type: CA echo doppler color flow Study Info Indications - hx/o MVR - syncope Complete two-dimensional, color flow and Doppler transthoracic echocardiogram is performed. Summary 1. Complete two-dimensional, color flow and Doppler transthoracic echocardiogram is performed. 2. Left ventricular chamber dimension is mildly enlarged. 3. Left ventricular systolic function is normal, estimated at 60-65%. 4. There is no increased left ventricular wall thickness. 5. Left ventricular septal wall motion is abnormal with septal motion related to bundle branch block. 6. The left ventricular diastolic function is grade I diastolic dysfunction. 7. Global longitudinal strain is mildly elevated at -16 %. 8. Left atrial chamber dimension is moderately enlarged. 9. Echodensity consistent with known MitraClip is observed. Mitral valve leaflefts are thickened. 10. There is mild to moderate regurgitation. 11. There is trace tricuspid valve regurgitation. 12. No pulmonary hypertension, estimated pulmonary arterial systolic pressure is 33 mmHg. 13. There is no aortic valve stenosis. Left Ventricle Left ventricular chamber dimension is mildly enlarged. Left ventricular systolic function is normal, estimated at 60-65%. There is no increased left ventricular wall thickness. Left ventricular septal wall motion is abnormal with septal motion related to bundle branch block. The left ventricular diastolic function is grade I diastolic dysfunction. Global longitudinal strain is mildly elevated at -16 %. Right Ventricle Right ventricular chamber dimension is normal. Right ventricular systolic function is normal. Left Atria Left atrial chamber dimension is moderately enlarged. Right Atria Right atrial chamber dimension is normal. Aortic Valve The aortic valve is not well visualized. There is no aortic valve stenosis. There is trace aortic valve regurgitation. Pulmonic Valve The pulmonic valve is not well visualized. Mitral Valve Echodensity consistent with known MitraClip is observed. Mitral valve leaflefts are thickened. There is mild to moderate regurgitation. Mild mitral annular calcification. Tricuspid Valve The tricuspid valve leaflets are normal. There is trace tricuspid valve regurgitation. No pulmonary hypertension, estimated pulmonary arterial systolic pressure is 33 mmHg. Pericardium/Pleural The pericardium appears normal. There is no pericardial effusion. Inferior Vena Cava Normal inferior vena cava with >50% collapse upon inspiration consistent with normal right atrial pressure, 5 mmHg. Aorta The aortic root size at the sinus of Valsalva is normal. There is mild aortic atherosclerosis. Left Ventricular Outflow Tract Name Value Normal LVOT 2D LVOT Diameter 2.1 cm LV
[2023-01-06] VITALS (8 sets, daily range): BP systolic 120–142; BP diastolic 65–75; PULSE 70–81; RESP 18–21; TEMP 36.2–36.3; O2SAT 95–100
[2023-01-06 08:28] LABS: Glucose Point of Care 223 mg/dl (65-105)
[2023-01-06] MEDS: SACUBITRIL/VALSARTAN 49-51 MG TABLET 1 TABLET PO (08:37)
[2023-01-06] MEDS: FUROSEMIDE 40 MG TABLET PO (08:37)
[2023-01-06] MEDS: SERTRALINE HCL 50 MG TABLET 200 MG PO (08:37)
[2023-01-06] MEDS: FERROUS SULFATE 324 MG TABLET PO (08:37)
[2023-01-06] MEDS: buPROPion HCL XL (24 HR) 150 MG TABCR PO (08:37)
[2023-01-06] MEDS: INSULIN GLARGINE (*BKC) 100 UNITS/ML 18 UNITS SUB-Q (08:38)
[2023-01-06] MEDS: INSULIN ASPART (*BKC) 100 UNITS/ML 6 UNITS SUB-Q (08:38)
[2023-01-06] MEDS: INSULIN ASPART (*BKC) 100 UNITS/ML SUB-Q (08:38)
[2023-01-06] MEDS: TOLNAFTATE 1% POWDER 45 GM BTL 1 APPLIC TOPICAL (08:38)
[2023-01-06] MEDS: carvediloL 12.5 MG TABLET PO (08:38)
[2023-01-06] MEDS: PREGABALIN (*CRX) 75 MG CAPSULE 150 MG PO (08:43)
--- NOTE | 2023-01-06 12:12 | PM.DS ---
DS: Admitting Diagnosis Discharge Date January 06, 2023 Admitting Diagnosis Syncope, narcolepsy DS: Discharge Diagnosis Discharge Diagnosis (1) Syncopal episodes: Qualifiers: Syncope type: unspecified Qualified Code(s): R55 - Syncope and collapse Code(s): R55 - Syncope and collapse Status: Acute Assessment and Plan: Episodes are not likely syncope. (2) Excessive sleepiness: Code(s): G47.10 - Hypersomnia, unspecified Status: Acute Assessment and Plan: Question narcolepsy. Neuro consult pending. 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 The patient workup was negative. She is feeling much better overall. Upon further questioning most of the issues are likely related to falling asleep while doing normal daily tasks. Neurology was consulted and patient will need extensive narcolepsy workup as an outpatient. She will need follow-up Neurology. Time Spent with Patient Time attestation: Total time spent providing and/or coordinating discharge services: Exam Narrative: General: Chronically ill-appearing female in the semi-Gary position in bed. Weight: 113.5 kg. BMI: 41.6. HEENT: Normocephalic, atraumatic. PERRL, EOMI. Sclera anicteric. Tacky mucous membranes. Neck: Supple. No obvious carotid bruits. Respiratory: Lungs are clear to auscultation bilaterally. Cardiovascular: Regular rate and rhythm with S1-S2. Soft systolic murmur at the left sternal border. Gastrointestinal: Abdomen is soft, nontender, and nondistended with positive bowel sounds. Skin: Warm and dry. Chronic skin changes of the lower legs. Extremities: No cyanosis or clubbing. Legs are large with nonpitting edema. Neurological: Alert and oriented x4. Cranial nerves 2-12 are grossly intact. Speech is clear. No facial asymmetry. 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 No pronator drift. No gross focal deficits to casual conversation. Psychiatric: Pleasant cooperative with appropriate mood and affect. DS: Data Data Completed and Pending Labs on day of discharge: Labs from last 24 hours 01/06/23 01/05/23 01/05/23 08:26 19:41 17:20 POC Capillary Glucose 223 H 304 H 333 H 01/05/23 12:09 POC Capillary Glucose 262 H Discharge Plan Discharge Attending physician on discharge: Tone Boogie Consulting providers: Akhil Newberry; Karen Juarez Discharging Clinician: Tone Boogie Patient Disposition: Home, Self-Care Activity: as tolerated Diet: as tolerated Patient Instructions: Antibiotic Form, Rivaroxaban (By mouth), Sacubitril/Valsartan (By mouth), Heart Failure (GEN), Pain Management (DC), Safe Use of Anticoagulants (GEN), Blood Thinners (GEN) Stand Alone Forms: General Discharge Information Follow-up/Referrals: Karen Juarez MD [Physician] - Discharge Medications: Continued (DME) FreeStyle Heladio 2 Sensor Kit See Rx Instructions .Route Qty: 6 1RF Rx Instructions: As directed carvedilol 25 mg tablet 12.5 mg PO Q12H Rx Instructions: PRESCRIBED BY CARDIOLOGY furosemide [Lasix] 40 mg tablet 40 mg PO DAILY acetaminophen [Tylenol Extra Strength] 500 mg tablet 500 mg PO Q6H
== END 2023-01-06 13:14 | disposition home or self-care (01) ==
LOC: ANHED 17:49 → ANH2MED 18:19
PROVIDERS: General Practice; Physician Assistant; Admitting Provider Chiropractor; Emergency Provider Physician Assistant; PCP Internal Medicine; Visit Provider Chiropractor
DX: R55 Syncope and collapse (principal); G47.10 Hypersomnia, unspecified; R94.31 Abnormal electrocardiogram [ECG] [EKG]; I50.40 Unspecified combined systolic (congestive) and diastolic (congestive) heart failure; E11.65 Type 2 diabetes mellitus with hyperglycemia; R53.1 Weakness; R20.2 Paresthesia of skin; R47.9 Unspecified speech disturbances; N17.9 Acute kidney failure, unspecified; I70.90 Unspecified atherosclerosis; J45.909 Unspecified asthma, uncomplicated; F31.9 Bipolar disorder, unspecified; K90.0 Celiac disease; M54.12 Radiculopathy, cervical region; E78.5 Hyperlipidemia, unspecified; E03.9 Hypothyroidism, unspecified; J44.9 Chronic obstructive pulmonary disease, unspecified; I87.2 Venous insufficiency (chronic) (peripheral); D50.9 Iron deficiency anemia, unspecified; G47.33 Obstructive sleep apnea (adult) (pediatric); I48.0 Paroxysmal atrial fibrillation; Z86.79 Personal history of other diseases of the circulatory system; I25.10 Atherosclerotic heart disease of native coronary artery without angina pectoris; I11.0 Hypertensive heart disease with heart failure; I34.0 Nonrheumatic mitral (valve) insufficiency; K21.9 Gastro-esophageal reflux disease without esophagitis; E11.42 Type 2 diabetes mellitus with diabetic polyneuropathy; E66.01 Morbid (severe) obesity due to excess calories; Z98.890 Other specified postprocedural states; Z68.41 Body mass index [BMI] 40.0-44.9, adult; Z98.84 Bariatric surgery status; Z79.01 Long term (current) use of anticoagulants; Z79.4 Long term (current) use of insulin; Z79.1 Long term (current) use of non-steroidal anti-inflammatories (NSAID); Z79.899 Other long term (current) drug therapy; Z79.891 Long term (current) use of opiate analgesic; Z82.49 Family history of ischemic heart disease and other diseases of the circulatory system; Z82.5 Family history of asthma and other chronic lower respiratory diseases; Z83.3 Family history of diabetes mellitus
CPT/HCPCS: 36415; 70450; 70496; 70498; 71045; 80053; 81001; 82948; 83735; 83880; 84484; 85025; 85027; 85610; 85730; 87086; 87088; 93005; 93306; 93880; 97161; 97165; 97530; 97535; 99285; A9270; G0378; J1815; Q9967

== ENCOUNTER 2023-01-09 10:47 | Outpatient (CLI) | payer MEDICARE, SELFPAY ==
--- NOTE | ~2023-01-09 | US_ITS ---
EXAMINATION: US retroperitoneal comp DATE: 01/09/2023 11:40 INDICATION: Bilateral kidney stones TECHNIQUE: Multiple ultrasound grayscale images of the kidneys were obtained. COMPARISON: 09/04/2019 FINDINGS: The right kidney measures 10.4 x 5.1 x 5.2 cm. The left kidney measures 10.3 x 5.2 x 3.8 cm. The kidn eys demonstrate normal echogenicity. There is no hydronephrosis in either kidney. Small echogenic fo ci with clinical artifact at the lower pole of the left kidney likely representing small renal stones . The bladder is normal with bilateral ureteral jets visualized on color Doppler. IMPRESSION: 1. Small stones at the lower pole of the left kidney. Otherwise normal kidneys with no hydronephrosi s. Reviewed, dictated and finalized at location B. IMPRESSION: 1. Small stones at the lower pole of the left kidney. Otherwise normal kidneys with no hydronephrosis.
--- NOTE | ~2023-01-09 | XR_ITS ---
Supine and upright views of the abdomen Clinical history: Kidney stones COMPARISON: 12/15/2017 Findings: Bowel gas pattern is nonspecific. No evidence for obstruction or free air. Evaluate for kid ed stones is limited due to bowel contents. Possible 4 mm left renal stone.. Neurostimulator device unchanged. Osseous structures are intact. Impression: Possible 4 mm left renal stone. Evaluation is suboptimal due to extensive bowel contents. Reviewed, dictated and finalized at location M. Impression: Possible 4 mm left renal stone. Evaluation is suboptimal due to extensive bowel contents.
== END 2023-01-09 10:48 | disposition home or self-care (01) ==
PROVIDERS: PCP Internal Medicine; Visit Provider Urology
DX: N20.0 Calculus of kidney (principal)
CPT/HCPCS: 74018; 76770

== ENCOUNTER 2023-01-20 16:02 | Emergency (ER) | payer MEDICARE, SELFPAY ==
--- NOTE | ~2023-01-20 | XR_ITS ---
EXAMINATION: XR chest 2V Exam Date/Time: 01/20/2023 16:30 CDT HISTORY: weakness, tingling all over X 1 DAY Comparison: 01/03/2023 and 06/24/2022. RESULT: Lines, tubes, and devices: Metallic device projecting over the heart, unchanged. Lungs and pleura: Minimal bibasilar scar/atelectasis, otherwise clear. Cardiomediastinal silhouette: Stable. Other: No acute osseous or upper abdominal finding. IMPRESSION: No acute cardiopulmonary process. Reviewed, dictated and finalized at location K.
[2023-01-20 16:03] VITALS: BP 110/68; PULSE 73; RESP 16; TEMP 36.3; O2SAT 98
--- NOTE | 2023-01-20 16:08 | ECG_ITS ---
Measurements Intervals [place] Rate: 73 P: 48 AK: 202 QRS: -44 QRSD: 192 T: 7 QT: 463 QTc: 510 Interpretive Statements SINUS RHYTHM LEFT AXIS DEVIATION LEFT ATRIAL ENLARGEMENT RIGHT BUNDLE BRANCH BLOCK INFERIOR INFARCT, AGE INDETERMINATE ABNORMAL ECG COMPARED TO ECG 01/03/2023 12:31:36 NO SIGNIFICANT CHANGES Electronically Signed On 01-20-2023 16:22:42 CDT by Narinder Roche D.O.
[2023-01-20 16:10] LABS: Glucose Point of Care 339 mg/dl (65-105)
[2023-01-20 16:35] LABS: Basophils Absolute Auto 0.1 K/mm3 (0.0-0.1); Basophils Percent Auto 0.6 % (0.2-1.2); Eosinophils Absolute Auto 0.2 K/mm3 (0-0.3); Eosinophils Percent Auto 2.4 % (0-4.4); Hematocrit 36.6 % (37.0-47.0); Hemoglobin 11.7 g/dL (12.0-15.0); Immature Granulocyte Absolute 0.13 K/mm3 (0.00-0.031); Immature Granulocyte Percent A 1.6 % (0-0.5); Lymphocytes Percent Auto 8.8 % (18.3-44.2); Mean Corpuscular Volume 87.6 fl (80-100); Mean Platelet Volume 10.1 fl (7.4-10.4); Monocytes Absolute Auto 0.6 K/mm3 (0.1-0.6); Monocytes Percent Auto 7.2 % (2.6-8.5); Neutrophils Absolute Auto 6.3 K/mm3 (1.3-6.7); Neutrophils Percent Auto 79.4 % (45.5-73.1); Platelet Count Result 261 k/mm3 (150-375); Red Blood Count 4.18 M/mm3 (4.2-5.4); Red Cell Distribution Width 13.8 % (11.5-14.5); White Blood Count 7.9 K/mm3 (4.5-10.0)
[2023-01-20 16:47] LABS: Alanine Aminotransferase 29 U/L (6-35); Albumin Level 3.2 g/dL (3.5-5.1); Alkaline Phosphatase 150 U/L (38-126); Anion Gap 7 mmol/L (8-16); Aspartate Amino Transferase 29 U/L (14-36); Bilirubin,Total 0.6 mg/dL (0.2-1.3); Blood Urea Nitrogen 37 mg/dL (7-17); Calcium 8.3 mg/dL (8.4-10.2); Carbon Dioxide 27 mmol/L (22-30); Chloride 100 mmol/L (98-107); Estimated CRCL calculation 43 ml/min; Estimated Glomerular Filt Rate 35; Glucose 345 mg/dL (65-110); Potassium 3.8 mmol/L (3.4-5.0); Sodium 134 mmol/L (137-145)
[2023-01-20 16:59] LABS: Troponin I < 0.012 ng/mL (0.000-0.034)
[2023-01-20 17:23] VITALS: BP 111/90; PULSE 66; RESP 20; O2SAT 100
[2023-01-20 17:35] LABS: Glucose Point of Care 345 mg/dl (65-105)
--- NOTE | 2023-01-20 17:57 | ED.NEUROSD ---
HPI - Neuro Symptoms/Deficit General Chief Complaint: Neuro Symptoms/Deficit Stated Complaint: neuro Time Seen by Provider: 01/20/23 17:25 History of Present Illness HPI Narrative: Patient with history of diabetes, NICHOLE, recent admission for frequent falling asleep during the day, presents with the exact same symptoms. She still feels tired all the time, she does not have any help at home because her has a bad back, her daughter had previously to been living with them but she states that her daughter has been more of a hindrance and to help and she cannot count on her. She would like to have home health if possible. Denies any new symptoms. Related Data Home Medications Medication Instructions Recorded Confirmed rivaroxaban 20 mg tablet (Xarelto) 20 mg PO DAILY 04/03/21 01/03/23 nitroglycerin 0.4 mg sublingual 0.4 mg sublingual Q5-15M PRN Chest 06/01/21 01/03/23 tablet (Nitrostat) Pain acetaminophen 500 mg tablet 500 mg PO Q6H PRN pain 08/21/21 01/03/23 (Tylenol Extra Strength) furosemide 40 mg tablet (Lasix) 40 mg PO DAILY 08/21/21 01/03/23 carvedilol 25 mg tablet 12.5 mg PO Q12H 09/25/21 01/03/23 cyclobenzaprine 10 mg tablet 10 mg PO TID PRN Muscle Spasm 04/15/22 01/03/23 vibegron 75 mg tablet (Gemtesa) 75 mg PO DAILY 12/31/22 01/03/23 atorvastatin 10 mg tablet 10 mg PO QHS 01/03/23 01/03/23 hydrocodone 7.5 mg-acetaminophen 1 tablet PO BID PRN Pain 01/03/23 01/03/23 325 mg tablet Allergies Allergy/AdvReac Type Severity Reaction Status Date / Time cephalexin Allergy Unknown Diarrhea Verified 01/03/23 19:35 diphenhydramine Allergy Unknown JERKY/JUMPY, Verified 01/03/23 19:35 GO CRAZY IN MY SKIN latex Allergy Unknown Hives Verified 01/03/23 19:35 Penicillins Allergy Unknown Hives Verified 01/03/23 19:35 Review of Systems Review of Systems: CONST: No fever. HEENT: No sore throat C/V: No chest pain RESP: No cough GI: No abdominal pain : No dysuria. M/S: No joint pain. SKIN: No rash. NEURO: Generalized fatigue PSYCH: Feeling down PMFSH Past Medical History Medical History Arterial occlusive disease Asthma With PFTs 04/2022 demonstrating good response to bronchodilator therapy with normal diffusion capacity Bipolar disorder Celiac disease Cervical radiculopathy Chronic anticoagulation On Xarelto for paroxysmal atrial fibrillation/flutter. 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 She had a catheterization that demonstrated minimal coronary artery disease May 2020 and had aMitra clip procedure with improvement in her mitral valve regurgitation with repeat echo June 2021 mild to moderately impaired left ventricular function with calculated EF of 35% visually appeared to be 40-45 range grade 2 diastolic dysfunction with moderate reduction of global longitudinal strain consistent with systolic dysfunction, left atrial chamber moderately enlarged, normally functioning mitral valve clip with mild mitral valve regurgitation Coronary artery disease Diffuse severe LAD disease with positive IFR and moderate RCA disease noted on cardiac catheterization in 2019. Managed medically. De Quervain's tenosynovitis Diabetic peripheral neuropathy Diverticulosis Eczema Gastroesophageal reflux disease Hyperlipidemia Hypertension Hypothyroidism Insulin dependent type 2 diabetes mellitus Hemoglobin A1c was 9.7% on 04/10/2022 Iron deficiency anemia With history of blood transfusion. Irritable bowel syndrome with diarrhea Kidney stones Morbid obesity Status post gastric bypass surgery in September 2002 with a preoperative weight of 280 lb. Obesity, morbid, BMI 40.0-49.9 Obstructive sleep apnea Patient had history of obstructive sleep apnea but repe
[2023-01-20] MEDS: INSULIN HUMAN REGULAR (*BKC) 100 UNITS/ML 6 UNITS SUB-Q (18:01)
[2023-01-20 18:04] VITALS: BP 121/72; PULSE 75; RESP 16; TEMP 36.5; O2SAT 100
[2023-01-20 18:38] LABS: Appearance Urine Cloudy (Clear); Bacteria Urine 4+ /hpf; Bilirubin Urine Negative (Negative); Blood Urine 3+ (Negative); Color Urine Yellow (Yellow); Glucose Urine UA 3+ mg/dL (Negative); Ketones Urine Negative (Negative); Leukocyte Esterase Ur 2+ LEU/UL (Negative); Need Manual Microscopic Reviewed; Nitrate Urine Positive (Negative); Non Pathogenic Casts >20; Protein Urine 2+ mg/dL (Negative); Specific Grav Ur 1.021 (1.001-1.035); Squamous Epithelial Cell Urine Moderate /hpf (Few); WBC Urine 51-100 /hpf; pH Urine 5.5 (5.0-9.0)
[2023-01-20 18:39] LABS: Add Urine Microscopic? YES
[2023-01-20 19:21] LABS: Glucose Point of Care 332 mg/dl (65-105)
[2023-01-20 19:48] VITALS: BP 120/65; PULSE 74; RESP 17; O2SAT 100
== END 2023-01-21 03:00 | disposition home or self-care (01) ==
PROVIDERS: Emergency Medicine; Emergency Provider Emergency Medicine; PCP Internal Medicine
DX: N39.0 Urinary tract infection, site not specified (principal); R53.83 Other fatigue; I25.10 Atherosclerotic heart disease of native coronary artery without angina pectoris; J44.9 Chronic obstructive pulmonary disease, unspecified; I11.0 Hypertensive heart disease with heart failure; I50.40 Unspecified combined systolic (congestive) and diastolic (congestive) heart failure; I48.0 Paroxysmal atrial fibrillation; I48.92 Unspecified atrial flutter; I34.0 Nonrheumatic mitral (valve) insufficiency; I38 Endocarditis, valve unspecified; E11.42 Type 2 diabetes mellitus with diabetic polyneuropathy; E78.5 Hyperlipidemia, unspecified; E03.9 Hypothyroidism, unspecified; K90.0 Celiac disease; K21.9 Gastro-esophageal reflux disease without esophagitis; K58.0 Irritable bowel syndrome with diarrhea; G47.33 Obstructive sleep apnea (adult) (pediatric); D50.9 Iron deficiency anemia, unspecified; E66.01 Morbid (severe) obesity due to excess calories; Z68.41 Body mass index [BMI] 40.0-44.9, adult; Z98.84 Bariatric surgery status; Z96.651 Presence of right artificial knee joint; Z86.73 Personal history of transient ischemic attack (TIA), and cerebral infarction without residual deficits; Z87.442 Personal history of urinary calculi; Z87.891 Personal history of nicotine dependence; Z90.710 Acquired absence of both cervix and uterus; Z90.49 Acquired absence of other specified parts of digestive tract; Z79.01 Long term (current) use of anticoagulants; Z79.4 Long term (current) use of insulin; I45.10 Unspecified right bundle-branch block; R94.31 Abnormal electrocardiogram [ECG] [EKG]
CPT/HCPCS: 36415; 71046; 80053; 81001; 82948; 84484; 85025; 87077; 87086; 87186; 93005; 96365; 99285; J0696; J1815

== ENCOUNTER 2023-02-25 09:20 | Outpatient (CLI) | payer MEDICARE, SELFPAY ==
[2023-02-25 10:30] LABS: Anion Gap 2 mmol/L (8-16); Blood Urea Nitrogen 29 mg/dL (7-17); Carbon Dioxide 28 mmol/L (22-30); Chloride 104 mmol/L (98-107); Estimated Glomerular Filt Rate 49; Glucose 164 mg/dL (65-110); Potassium 4.2 mmol/L (3.4-5.0); Sodium 134 mmol/L (137-145)
[2023-02-25 11:00] LABS: Vitamin D 25 Hydroxy 37.3 ng/mL
[2023-02-25 11:19] LABS: Creatinine Urine 101.5 mg/dL
[2023-02-25 11:24] LABS: Microalbumin Urine Random 44.7 mg/L (0-16.7)
== END 2023-02-25 09:21 | disposition home or self-care (01) ==
PROVIDERS: PCP Internal Medicine; Visit Provider Internal Medicine Endocrinology, Diabetes & Metabolism
DX: R79.89 Other specified abnormal findings of blood chemistry (principal); E11.9 Type 2 diabetes mellitus without complications; Z78.0 Asymptomatic menopausal state; Z79.4 Long term (current) use of insulin
CPT/HCPCS: 36415; 80048; 82043; 82306

== ENCOUNTER 2023-03-17 09:46 | Outpatient (CLI) | payer MEDICARE, SELFPAY ==
--- NOTE | ~2023-03-17 | CT_ITS ---
Non-contrast CT scan of the Abdomen and Pelvis Clinical indication: Flank pain Technique: 2.5 mm axial scans were obtained through the abdomen and pelvis without intravenous or or al contrast. Dose reduction technique was used on this scan by utilizing automated exposure control a nd iterative reconstruction technique. The dose-length product (DLP) was 639.24 mGy-cm. COMPARISON: 09/04/2019 Findings: Images through the lung bases reveal no abnormalities. Small nonobstructing right renal calculi are present, measuring up to approximately 3 mm. No ureteral stone or hydronephrosis on either side. The liver, spleen, pancreas, and adrenals appear normal. Cholecystectomy clips are present. There are atherosclerotic calcifications of the aorta. There is no evidence of bowel obstruction. Images through the pelvis were performed. There is no evidence of ascites or lymphadenopathy. Urinary bladder unremarkable. No adnexal mass seen. Impression: Small nonobstructing right renal calculi. No other significant findings. Reviewed, dictated and finalized at [facility]. Impression: Small nonobstructing right renal calculi. No other significant findings.
== END 2023-03-17 09:47 | disposition home or self-care (01) ==
PROVIDERS: PCP Internal Medicine; Visit Provider Urology
DX: N20.0 Calculus of kidney (principal)
CPT/HCPCS: 74176

== ENCOUNTER 2023-03-20 14:05 | Outpatient (CLI) | payer MEDICARE, SELFPAY ==
[2023-03-20 15:09] LABS: Influenza A QL RT-PCR Negative (Negative); Influenza B QL RT-PCR Negative (Negative); RSV RNA, RT-PCR Negative (Negative); SARS-CoV-2 RNA PCR Negative (Negative)
== END 2023-03-20 14:06 | disposition home or self-care (01) ==
LOC: ANHLAB 14:06
PROVIDERS: PCP Internal Medicine; Visit Provider Clinical Nurse Specialist
DX: Z20.828 Contact with and (suspected) exposure to other viral communicable diseases (principal); Z20.822 Contact with and (suspected) exposure to COVID-19
CPT/HCPCS: 87637

== ENCOUNTER 2023-03-24 12:32 | Emergency (ER) | payer MEDICARE, SELFPAY ==
--- NOTE | ~2023-03-24 | XR_ITS ---
PA, oblique, and lateral views of the left third finger CLINICAL HISTORY: Injury FINDINGS: There is a small mildly displaced fracture of the dorsal aspect of the base of the distal p halanx of the third digit, with intra-articular extension. There is displacement by approximately 1 m m. No other fracture or dislocation seen. Joint spaces are preserved. Soft tissues are unremarkable. IMPRESSION: Small mildly displaced avulsion fracture from the dorsal aspect of the base of the distal phalanx of the third digit, consistent with avulsion fracture related to the distal insertion of the extensor te ndon. Reviewed, dictated and finalized at location . IMPRESSION: Small mildly displaced avulsion fracture from the dorsal aspect of the base of the distal phalanx of the third digit, consistent with avulsion fracture relate d to the distal insertion of the extensor tendon.
--- NOTE | ~2023-03-24 | XR_ITS ---
Clinical Indication: Cough PA and lateral views of the chest: Comparison: 01/20/2023 Findings: The lungs are clear, without evidence of focal consolidation or pleural effusion. Cardiome diastinal silhouette is within normal limits. Bones and soft tissues are unremarkable. Impression: Clear lungs. Reviewed, dictated and finalized at location . Impression: Clear lungs.
--- NOTE | ~2023-03-24 | XR_ITS ---
AP and lateral views of the sacrum/coccyx CLINICAL HISTORY: Status post fall FINDINGS: No fracture or dislocation seen. Joint spaces are preserved. Neurostimulator is present. So ft tissues are otherwise unremarkable. IMPRESSION: No acute abnormality seen. Neurostimulator device present. Reviewed, dictated and finalized at location .
--- NOTE | 2023-03-24 12:34 | ED.URI ---
HPI - URI/Sore Throat General Chief Complaint: Upper Respiratory Infection Stated Complaint: TAILBONE/FINGER INJURY/COUGH/CONGESITON Time Seen by Provider: 03/24/23 12:34 Source: patient Mode of arrival: ambulatory Limitations: no limitations History of Present Illness HPI Narrative: Charlene is a 68-year-old female patient presenting to the clinic today with complaints a tailbone pain, finger pain, cough, and congestion. Reports that she fell 1 week ago and injured her tailbone and left middle finger. States she is having increase in falls over the last month. Is currently being treated for UTI in on her last and Macrobid. She denies any urinary symptoms. States that she is having a productive cough bringing up green and yellow phlegm with shortness of breath. History of COPD. Was exposed to RSV last week. Had a COVID, RSV, and influenza test at the hospital and they were negative. MD elicited complaint: nasal congestion and other (Cough, tailbone injury, finger injury) Related Data Home Medications Medication Instructions Recorded Confirmed rivaroxaban 20 mg tablet (Xarelto) 20 mg PO DAILY 04/03/21 03/24/23 nitroglycerin 0.4 mg sublingual 0.4 mg sublingual Q5-15M PRN Chest 06/01/21 03/24/23 tablet (Nitrostat) Pain acetaminophen 500 mg tablet 500 mg PO Q6H PRN pain 08/21/21 03/24/23 (Tylenol Extra Strength) carvedilol 25 mg tablet 12.5 mg PO Q12H 09/25/21 03/24/23 cyclobenzaprine 10 mg tablet 10 mg PO TID PRN Muscle Spasm 04/15/22 03/24/23 vibegron 75 mg tablet (Gemtesa) 75 mg PO DAILY 12/31/22 03/24/23 atorvastatin 10 mg tablet 10 mg PO QHS 01/03/23 03/24/23 hydrocodone 7.5 mg-acetaminophen 1 tablet PO BID PRN Pain 01/03/23 03/24/23 325 mg tablet melatonin 5 mg tablet 5 mg PO HS PRN Insomnia 03/03/23 03/24/23 nitrofurantoin 100 mg PO BID 03/24/23 03/24/23 monohydrate/macrocrystals 100 mg capsule Allergies Allergy/AdvReac Type Severity Reaction Status Date / Time cephalexin Allergy Unknown Diarrhea Verified 03/24/23 12:49 diphenhydramine Allergy Unknown JERKY/JUMPY, Verified 03/24/23 12:49 GO CRAZY IN MY SKIN latex Allergy Unknown Hives Verified 03/24/23 12:49 Penicillins Allergy Unknown Hives Verified 03/24/23 12:49 Review of Systems Review of Systems: Pertinent positives per HPI. Patient denies any fever, chills, rash, headache, visual changes, dizziness, chest pain, palpitations, nausea, vomiting, diarrhea, constipation, abdominal pain, or any urinary issues. [facility] Past Medical History Medical History Arterial occlusive disease Asthma With PFTs 04/2022 demonstrating good response to bronchodilator therapy with normal diffusion capacity Bipolar disorder Celiac disease Cervical radiculopathy Chronic anticoagulation On Xarelto for paroxysmal atrial fibrillation/flutter. 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 She had a catheterization that demonstrated minimal coronary artery disease May 2020 and had aMitra clip procedure with improvement in her mitral valve regurgitation with repeat echo June 2021 mild to moderately impaired left ventricular function with calculated EF of 35% visually appeared to be 40-45 range grade 2 diastolic dysfunction with moderate reduction of global longitudinal strain consistent with systolic dysfunction, left atrial chamber moderately enlarged, normally functioning mitral valve clip with mild mitral valve regurgitation Coronary artery disease Diffuse severe LAD disease with positive IFR and moderate RCA disease noted on cardiac catheterization in 2019. Managed medically. De Quervain's tenosynovitis Diabetic peripheral neuropathy Diverticulosis Eczema Gastroesophageal reflux disease Hyperlipidemia
[2023-03-24 12:46] VITALS: BP 149/85; PULSE 95; RESP 16; TEMP 36.5; O2SAT 100
--- NOTE | 2023-03-24 13:20 | PC.NURSE ---
1318- GYMNASTICS COACH abdiel is talking to dr michael, our plastics. and making a referral for pt.
== END 2023-03-24 13:37 | disposition home or self-care (01) ==
PROVIDERS: Emergency Provider Nurse Practitioner Family; PCP Clinical Nurse Specialist
DX: J44.1 Chronic obstructive pulmonary disease with (acute) exacerbation (principal); S62.633A Displaced fracture of distal phalanx of left middle finger, initial encounter for closed fracture; S30.0XXA Contusion of lower back and pelvis, initial encounter; W19.XXXA Unspecified fall, initial encounter; Z79.01 Long term (current) use of anticoagulants; I11.0 Hypertensive heart disease with heart failure; I50.40 Unspecified combined systolic (congestive) and diastolic (congestive) heart failure; I25.10 Atherosclerotic heart disease of native coronary artery without angina pectoris; E11.42 Type 2 diabetes mellitus with diabetic polyneuropathy; Z79.4 Long term (current) use of insulin; K21.9 Gastro-esophageal reflux disease without esophagitis; E78.5 Hyperlipidemia, unspecified; I70.90 Unspecified atherosclerosis; E66.01 Morbid (severe) obesity due to excess calories; Z68.38 Body mass index [BMI] 38.0-38.9, adult; I48.0 Paroxysmal atrial fibrillation; G25.81 Restless legs syndrome; M06.9 Rheumatoid arthritis, unspecified; Z86.73 Personal history of transient ischemic attack (TIA), and cerebral infarction without residual deficits; Z98.84 Bariatric surgery status; Z96.651 Presence of right artificial knee joint
CPT/HCPCS: 29130; 71046; 72220; 73140; 99214; G0463

== ENCOUNTER 2023-06-23 08:42 | Outpatient (CLI) | payer MEDICARE, SELFPAY ==
[2023-06-23 09:13] LABS: Anion Gap 6 mmol/L (8-16); Blood Urea Nitrogen 16 mg/dL (7-17); Calcium 9.4 mg/dL (8.4-10.2); Carbon Dioxide 28 mmol/L (22-30); Chloride 105 mmol/L (98-107); Estimated Glomerular Filt Rate > 60; Glucose 129 mg/dL (65-110); Potassium 3.9 mmol/L (3.4-5.0); Sodium 139 mmol/L (137-145)
[2023-06-23 09:32] LABS: Hematocrit 39.9 % (37.0-47.0); Hemoglobin 12.9 g/dL (12.0-15.0)
== END 2023-06-23 08:43 | disposition home or self-care (01) ==
PROVIDERS: Anesthesiology; PCP Family Medicine; Visit Provider Plastic Surgery
DX: Z01.818 Encounter for other preprocedural examination (principal); D64.9 Anemia, unspecified; E11.49 Type 2 diabetes mellitus with other diabetic neurological complication; Z79.4 Long term (current) use of insulin
CPT/HCPCS: 36415; 80048; 85014; 85018

== ENCOUNTER 2023-06-26 02:21 | Day surgery (SDC) | payer MEDICARE, SELFPAY ==
[2023-06-22 14:14] VITALS: BMI 36.3
--- NOTE | 2023-06-22 14:36 | PC.NURSE ---
PRE-OP INSTRUCTIONS, PLEASE READ CAREFULLY Report to the Outpatient Waiting Room, entrance under the green pavilion located off [facility], at time _0645_ on date _06/26/23_. Planned Procedure Time: _0845_. Time changes happen often and if your time is changed the preop area will call you the afternoon before. - You and your visitor will be asked to self-screen and do not enter if you have any COVID symptoms. - A mask is optional within the hospital at this time. - No food/fluids from midnight until time of surgery Take the following medications with a SIP of water the morning of surgery: _CARVEDILOL, PREGABALIN, SERTRALINE, & PAIN PILL, INHALER IF NEEDED_ DO NOT STOP ANY OF YOUR OTHER PRESCRIPTION MEDICATIONS PRIOR TO SURGERY ?EXCEPT THE FOLLOWING Medications to discontinue per physician __RIVAROXABAN (XARELTO) CALL DR. PAUL'S OFFICE FOR INSTRUCTIONS__ Date to take last dose Please no make-up, nail upper sorbian, hairspray, perfume, deodorant, or body powder the day of surgery. No jewelry (including any body piercings) or valuables the day of surgery, leave them at home. Please take a shower or bath the night before, or the morning of, surgery with an antibacterial soap. Wear comfortable, loose fitting clothing. - Jewelry must be removed prior to entering the operating room. Rings and piercings that are not removed may be cut off. - The hospital will not accept responsibility for valuables. - Please leave all valuables, including medications, at home the day of surgery. If you are going home after surgery, a licensed class b truck driver must drive you home. - NO public transportation without another adult if you receive anesthesia. - We recommend that an adult stay with you for 24 hours following discharge. - We also recommend that you do not drive, make important decision, drink alcoholic beverages, or take any drugs that were not prescribed by your health care provider for at least 24 hours after your discharge time. Follow any additional instructions given to you from your surgeon. If you or anyone in your household have experienced Covid symptoms in the past week, please notify your surgeon or the nurse liaison at the phone number below for possible testing. Telephone instructions given to _PATIENT & SPOUSE_and asked if any additional questions and then verbalized understanding. Patient advised to call surgeon office or pre surgery nurse liaison [phone] if any additional questions.
--- NOTE | ~2023-06-26 | XR_ITS ---
EXAMINATION: XR surgery orthopedic DATE: 06/26/2023 08:56 INDICATION: ORIF left middle finger with tendon repair and osteophyte removal TECHNIQUE: 3 fluoroscopic images of the left third digit were obtained during procedure performed by Dr. Villagomez. Radiologist was not present for the imaging or procedure. The amount of fluoroscopy t raza used during this procedure was 0.1 minutes. COMPARISON: 03/24/2023 FINDINGS: Initial image demonstrates a persistent mallet finger deformity with flexion at the distal interphala ngeal joint which is reduced to essentially anatomic alignment on the subsequent image with percutane ous fixation with an axially directed wire extending from the ulnar side of the tuft of the distal ph alanx across the distal interphalangeal joint and into the ulnar head of the middle phalanx. A tiny a vulsion fracture fragment arising from the dorsal base of the distal phalanx appears to have been res ected. There is been placement of an anchor likely for fixation of the extensor tendon at the dorsal base of the distal phalanx. IMPRESSION: 1. Fluoroscopy utilized during likely repair of a left third digit extensor tendon avulsion. See proc edure note for further detail. Reviewed, dictated and finalized at location A. RT KEEPER IMPRESSION: 1. Fluoroscopy utilized during likely repair of a left third digit extensor ten don avulsion. See procedure note for further detail.
[2023-06-26] MEDS: LACTATED RINGERS 1,000 ML 30 ML IV CONT (06:30)
[2023-06-26 06:45] VITALS: BP 137/80; PULSE 88; RESP 16; TEMP 36.6; O2SAT 100
--- NOTE | 2023-06-26 06:53 | PM.HPGS ---
History of Present Illness History of Present Illness Chief complaint: fx distal phalanx of finger left hand Narrative: Patient seen and examined in pre-operative holding area. No interval change in medical history or symptoms. Patient recalls previous discussion of benefits and alternatives to procedure. Continues to desire to proceed with left middle finger bony mass excision and possible extensor tendon repair, possible k-wire placement. Reviewed procedure, post-op expectations and risks including but not limited to bleeding, infection, injury to tendon/nerve/vessel, decreased hand function, stiffness, RSD, no change or worsening of symptoms. I discussed the possible use of assistants and their participation in the case. Patient stated understanding and signed the consent form wishing to proceed. Review of Systems Review of Systems: All systems reviewed & are unremarkable except as noted in HPI and below PMFSH Past Medical History Medical History (Reviewed 05/11/23 @ 08:10 by Han Bledsoe, [facility]) Arterial occlusive disease Asthma With PFTs 04/2022 demonstrating good response to bronchodilator therapy with normal diffusion capacity Bipolar disorder Celiac disease Cervical radiculopathy Chronic anticoagulation On Xarelto for paroxysmal atrial fibrillation/flutter. 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 She had a catheterization that demonstrated minimal coronary artery disease May 2020 and had aMitra clip procedure with improvement in her mitral valve regurgitation with repeat echo June 2021 mild to moderately impaired left ventricular function with calculated EF of 35% visually appeared to be 40-45 range grade 2 diastolic dysfunction with moderate reduction of global longitudinal strain consistent with systolic dysfunction, left atrial chamber moderately enlarged, normally functioning mitral valve clip with mild mitral valve regurgitation Coronary artery disease Diffuse severe LAD disease with positive IFR and moderate RCA disease noted on cardiac catheterization in 2019. Managed medically. De Quervain's tenosynovitis Diabetic peripheral neuropathy Diverticulosis Eczema Gastroesophageal reflux disease Hyperlipidemia Hypertension Hypothyroidism Insulin dependent type 2 diabetes mellitus Hemoglobin A1c was 9.7% on 04/10/2022 Iron deficiency anemia With history of blood transfusion. Irritable bowel syndrome with diarrhea Kidney stones Morbid obesity Status post gastric bypass surgery in September 2002 with a preoperative weight of 280 lb. Obesity, morbid, BMI 40.0-49.9 Obstructive sleep apnea Patient had history of obstructive sleep apnea but repeat sleep study March 2022 demonstrated resolution of sleep apnea. Paroxysmal atrial fibrillation Paroxysmal atrial flutter Peripheral neuropathy Regurgitation of stomach contents Restless leg syndrome Rheumatoid arthritis RSV exposure Severe mitral valve regurgitation Status post MitraClip in 2019. Thyroid disease Patient no longer takes thyroid medicine. TSH 2.11 October 2021 Transient ischemic attack Trigger finger, right middle finger Trigger ring finger of right hand Type 2 diabetes mellitus Surgical History Surgical History (Reviewed 05/11/23 @ 08:10 by Han Bledsoe, [facility]) Gastric bypass status for obesity (09/2002) H/O section History of bilateral carpal tunnel release History of bladder surgery Insertion of bladder stimulator for urinary incontinence. History of cholecystectomy History of cystoscopy History of esophagogastroduodenoscopy (EGD) History of hysterectomy History of lithotripsy History of right knee joint replacement (2008) Multiple kidney stones Surgery X2 S/P trigger finger release (04/2022) Ring finger and middle finger r
--- NOTE | 2023-06-26 06:54 | W.PM.PROC2 ---
Procedure Note - Detailed Date of Procedure 06/26/23 Pre-op Diagnosis fx distal phalanx of finger left hand Post-op Diagnosis Same Procedure Performed left middle finger dipjoint bony ossicle exision and extensor tendon repair Surgeon Narciso Villagomez MD Anesthesia MAC Description of Procedure INFORMED CONSENT: The patient was seen and examined and marked in the pre-op area.? The patient signed the consent form. PROCEDURE IN DETAIL:The patient taken back to OR on the stretcher in supine position. Time out performed with anesthesia, surgeon and staff agreeing on patient's name site and surgery to be performed SCDs were placed on the lower extremities and inflated. A tourniquet was placed on {left} upper extremity and antibiotics given IV After anesthesia administered sedation I injected {3}cc 1%lido and 0.5% marcaine plain for digital block in the palm The?{left upper extremity}?was prepped and draped in sterile fashion the??{left upper extremity} was? exsanguinated with Esmarch bandage and tourniquet inflated to 250mmHg I proceeded with making a longitudinal incision over the left middle finger DIPjoint through skin and dermis with a 15 blade scalpel. Skin flaps were elevated with 15 blade above extensor tendon and the joint was identified as well as the fracture fragment. Mini c-arm was used for verification. The bony fragment/ossicle was sharply excised as it was too small to be used for fixation. I debrided the fracture site on the distal phalanx til free of scar tissue and viable bone was visualized. I then proceeded with placing an arthrex corkscrew anchor into the distal phalanx which was verified on multiple views of fluoro. I repaired the extensor tendon to the distal phalanx with modified mullen repair to the anchor and then a separate 4-0 fiberwire figure of eight. There was no lag and reasonable motion of the joint without gapping of the repair. I placed a 0.035 k-wire retrograde across the dipjoint for stability and verified placement on fluoro. I irrigated with normal saline and closed skin with 4-0 chromic. A dressing of xeroform, 4x4, regina, and volar splint in safe position was applied after the tourniquet was let down noting the finger was warm and well perfused. The patient was awaken from anesthesia and transferred to recovery in stable condition. Complications - none EBL- 0cc Disposition - home in stable conditions [facility] Billing Surgery - Charge Forward: Surgery Billing ([id number] and [id number])
[2023-06-26 07:16] LABS: Glucose Point of Care 180 mg/dl (65-105)
--- NOTE | 2023-06-26 07:59 | WPDANESEPPF ---
Anes - Initial Pre Proc Eval Procedure: Operation Date: 06/26/23 08:30 Proposed Procedures p Left Middle Finger Open Reduction Internal Fixation, Possible Excision Bone Fragment, Extensor Tendon Repair - Narciso Villagomez MD Date/Time: 06/26/23 07:59 Surgeon: Narciso Villagomez MD Pre Op Diagnosis: fx distal phalanx of finger left hand Patient Data Age: 68 Gender: F Height: 1.65 m Weight: 99.09 kg Allergies Allergy/AdvReac Type Severity Reaction Status Date / Time cephalexin Allergy Unknown Diarrhea Verified 06/26/23 07:51 diphenhydramine Allergy Unknown JERKY/JUMPY, Verified 06/26/23 07:51 GO CRAZY IN MY SKIN latex Allergy Unknown Hives Verified 06/26/23 07:51 Penicillins Allergy Unknown Hives Verified 06/26/23 07:51 Home Medications Medication Instructions Recorded Confirmed Type flash glucose sensor (FreeStyle #6 ea 01/21/21 06/26/23 Rx Heladio 2 Sensor kit) rivaroxaban 20 mg tablet (Xarelto) 20 mg PO DAILY 04/03/21 06/26/23 History nitroglycerin 0.4 mg sublingual 0.4 mg sublingual Q5-15M PRN Chest 06/01/21 06/26/23 History tablet (Nitrostat) Pain sacubitril 49 mg-valsartan 51 mg 1 tablet PO Q12HR #60 tabs 06/06/21 06/26/23 Rx tablet (Entresto) acetaminophen 500 mg tablet 500 mg PO Q6H PRN pain 08/21/21 06/26/23 History (Tylenol Extra Strength) carvedilol 25 mg tablet 12.5 mg PO Q12H 09/25/21 06/26/23 History ferrous sulfate 325 mg (65 mg 325 mg PO DAILY anemia #90 tabs 01/30/22 06/26/23 Rx iron) tablet cyclobenzaprine 10 mg tablet 10 mg PO TID PRN Muscle Spasm 04/15/22 06/26/23 History sertraline 100 mg tablet 200 mg PO DAILY #180 tabs 09/29/22 06/26/23 Rx pregabalin 150 mg capsule (Lyrica) 150 mg PO Q12H 3 months #180 caps 12/12/22 06/26/23 Rx vibegron 75 mg tablet (Gemtesa) 75 mg PO DAILY 12/31/22 06/26/23 History atorvastatin 10 mg tablet 10 mg PO QHS 01/03/23 06/26/23 History hydrocodone 7.5 mg-acetaminophen 1 tablet PO BID PRN Pain 01/03/23 06/26/23 History 325 mg tablet glucagon 3 mg/actuation nasal 3 mg intranasal ONCE PRN 01/21/23 06/26/23 Rx spray (Baqsimi) hypoglycemia #1 ea glucose 4 gram chewable tablet 16 g PO Q15M PRN hypoglycemia #90 01/21/23 06/26/23 Rx (Dex4 Glucose) tabs pen needle, diabetic 32 gauge x #400 ea 01/21/23 06/26/23 Rx /32 (BD Ultra-Fine Luanne Pen Needle) ropinirole 3 mg tablet 3 mg PO HS #90 tabs 01/28/23 06/26/23 Rx melatonin 5 mg tablet 5 mg PO HS PRN Insomnia 03/03/23 06/26/23 History albuterol sulfate 90 mcg/actuation 2 puff inhalation Q4-6H PRN 03/24/23 06/26/23 Rx aerosol inhaler shortness of breath or wheezing 30 days #8.5 grams furosemide 40 mg tablet (Lasix) 20 mg PO BID #90 tabs 04/20/23 06/26/23 Rx insulin glargine 100 unit/mL (3 18 unit (0.18 mL) subcut DAILY 90 05/11/23 06/26/23 Rx mL) subcutaneous pen (Basaglar days #18 mL KwikPen U-100 Insulin) insulin lispro 100 unit/mL 7 unit (0.07 mL) subcut TIDWMEAL 05/11/23 06/26/23 Rx subcutaneous pen (Humalog KwikPen 90 days #36 mL (U-100) Insulin) nystatin 100,000 unit/gram topical 1 applic topical TID #60 grams 05/15/23 06/26/23 Rx powder cholecalciferol (vitamin D3) 1,250 1,250 mcg PO WEEKLY #12 tabs 06/12/23 06/26/23 Rx mcg (50,000 unit) tablet tirzepatide 5 mg/0.5 mL 5 mg (0.5 mL) subcut WEEKLY 3 06/25/23 06/26/23 Rx subcutaneous pen injector months #6.5 mL (Mounjaro) acetaminophen 300 mg-codeine 30 mg 1 tablet PO Q6H PRN pain #20 tabs 06/26/23 Rx tablet Laboratory Tests 06/26/23 07:14 POC Capillary Glucose 180 H mg/dl (65-105) Patient hx anesthesia problems: none Family hx anesthesia problems: none Results Review: All pre-operative results and documents have been reviewed as part of the pre-operative evaluation. [facility] Past Medical History Medical History Arterial occlusive disease Asthma With PFTs 04/2022 demonstrating good response to bronc
[2023-06-26] MEDS: CLINDAMYCIN 900 MG/D5W 50 ML 900 MG/50 ML PIGGYBACK 50 MG IVPB (08:15)
[2023-06-26] MEDS: BUPivacaine HCL 0.5% 10 ML AMP 5 ML INFILTRATE (08:44)
[2023-06-26 08:51] VITALS: BP 106/54; PULSE 78; RESP 12; O2SAT 95
[2023-06-26 08:58] LABS: Glucose Point of Care 163 mg/dl (65-105)
[2023-06-26 09:20] VITALS: BP 113/62; PULSE 84; RESP 18; O2SAT 98
[2023-06-26 09:50] VITALS: BP 133/74; PULSE 81; RESP 18
== END 2023-06-26 10:14 | disposition home or self-care (01) ==
PROVIDERS: PCP Family Medicine; Visit Provider Plastic Surgery
PROC: (CPT 26433; principal; 2023-06-26 08:30)
DX: S62.633A Displaced fracture of distal phalanx of left middle finger, initial encounter for closed fracture (principal); W19.XXXA Unspecified fall, initial encounter; I11.0 Hypertensive heart disease with heart failure; I50.40 Unspecified combined systolic (congestive) and diastolic (congestive) heart failure; J44.9 Chronic obstructive pulmonary disease, unspecified; I25.10 Atherosclerotic heart disease of native coronary artery without angina pectoris; F31.9 Bipolar disorder, unspecified; E11.42 Type 2 diabetes mellitus with diabetic polyneuropathy; E78.5 Hyperlipidemia, unspecified; E03.9 Hypothyroidism, unspecified; K21.9 Gastro-esophageal reflux disease without esophagitis; D50.9 Iron deficiency anemia, unspecified; K58.0 Irritable bowel syndrome with diarrhea; I48.0 Paroxysmal atrial fibrillation; M06.9 Rheumatoid arthritis, unspecified; G47.33 Obstructive sleep apnea (adult) (pediatric); G25.81 Restless legs syndrome; I34.0 Nonrheumatic mitral (valve) insufficiency; Z86.73 Personal history of transient ischemic attack (TIA), and cerebral infarction without residual deficits; Z98.84 Bariatric surgery status; Z79.01 Long term (current) use of anticoagulants; Z79.51 Long term (current) use of inhaled steroids; Z79.4 Long term (current) use of insulin; Z79.85 Long-term (current) use of injectable non-insulin antidiabetic drugs; E66.9 Obesity, unspecified; Z68.36 Body mass index [BMI] 36.0-36.9, adult
CPT/HCPCS: 26433; 36415; 80048; 82948; 85014; 85018; 88309; 88311; 99199; A9270; C1713; J2704; J3010; J7120

== ENCOUNTER 2023-07-30 10:57 | Outpatient (CLI) | payer MEDICARE, SELFPAY ==
--- NOTE | ~2023-07-30 | XR_ITS ---
EXAMINATION: XR finger 3rd LT min 2V DATE: 07/30/2023 11:19 INDICATION: Left hand third digit tendon repair status post wire removal. TECHNIQUE: 4 views of left hand third digit were obtained. COMPARISON: Left hand third digit radiographs 03/24/2023, 06/26/2023 FINDINGS: There is hyperextension of third proximal interphalangeal joint. No acute fracture. There i s a suture anchor in dorsal aspect of third distal phalanx. There is mild osteoarthritis of third pro ximal and distal interphalangeal joints. IMPRESSION: 1. Mild polyarticular osteoarthritis. Reviewed, dictated and finalized at location E. ITAL CLEANER
== END 2023-07-30 10:58 | disposition home or self-care (01) ==
PROVIDERS: PCP Family Medicine; Visit Provider Physician Assistant Surgical
DX: S62.633A Displaced fracture of distal phalanx of left middle finger, initial encounter for closed fracture (principal); M19.042 Primary osteoarthritis, left hand; X58.XXXA Exposure to other specified factors, initial encounter
CPT/HCPCS: 73140

== ENCOUNTER 2023-11-06 11:59 | Emergency (ER) | payer MEDICARE, SELFPAY ==
[2023-11-06 12:16] VITALS: BP 156/97; PULSE 116; RESP 16; TEMP 37.6; O2SAT 96
--- NOTE | 2023-11-06 12:22 | ED.URI ---
HPI - URI/Sore Throat General Chief Complaint: Shortness of Breath/Dyspnea Stated Complaint: Trouble Breathing Time Seen by Provider: 11/06/23 12:22 Source: patient Mode of arrival: ambulatory Limitations: no limitations History of Present Illness HPI Narrative: 68-year-old female with history of asthma presents with complaint of shortness of breath with exertion. Patient reports that she has had cough, chest congestion, runny nose for the past 2-3 days. Patient states that she recently was given her 2 grandchildren vice DCFS and both of them were sick with upper respiratory infection. Believes that she got sick from them. Taking [id number] cough and cold medication to treat symptoms. Patient has pain using albuterol inhaler. Patient states in the past she was told that she had COPD better at her last appointment with her primary care physician she was told COPD was gone, no longer sees a research rn spec. Afebrile. No respiratory distress noted. All systems reviewed and negative except as noted above. Related Data Home Medications Medication Instructions Recorded Confirmed rivaroxaban 20 mg tablet (Xarelto) 20 mg PO DAILY 04/03/21 11/07/23 acetaminophen 500 mg tablet 500 mg PO Q6H PRN pain 08/21/21 11/07/23 (Tylenol Extra Strength) vibegron 75 mg tablet (Gemtesa) 75 mg PO DAILY 12/31/22 11/07/23 bupropion HCl 150 mg 24 hr tablet, 150 mg PO DAILY 11/06/23 11/07/23 extended release carvedilol 25 mg tablet 12.5 mg PO BID 11/07/23 11/07/23 nystatin 100,000 unit/gram topical 100,000 unit topical TID PRN Rash 11/07/23 11/07/23 powder pregabalin 150 mg capsule 150 mg PO BID 11/07/23 11/07/23 Allergies Allergy/AdvReac Type Severity Reaction Status Date / Time codeine Allergy Intermediate Itching Verified 11/06/23 12:06 diphenhydramine Allergy Unknown JERKY/JUMPY, Verified 11/06/23 12:06 GO CRAZY IN MY SKIN latex Allergy Unknown Hives Verified 11/06/23 12:06 Penicillins Allergy Unknown Hives Verified 11/06/23 12:06 cephalexin AdvReac Unknown Diarrhea Verified 11/07/23 13:07 Review of Systems Review of Systems: CONSTITUTIONAL: Denies fever, chills, or sweats. EYES: Denies visual changes, redness, or discharge. ENT: Denies rhinorrhea, congestion, sore throat, or otalgia. CARDIOVASCULAR: Denies chest pain, palpitations, or edema. RESPIRATORY: Reports cough, chest congestion, dyspnea with exertion. GASTROINTESTINAL: Denies abdominal pain, nausea, vomiting, or diarrhea. GENITOURINARY: Denies dysuria or hematuria. SKIN: Denies rash or itching. MUSCULOSKELETAL: Denies back pain, joint pain, or myalgia. NEUROLOGIC: Denies headache, numbness, or weakness. PSYCHIATRIC: Denies anxiety or depression. All other systems reviewed are negative, except as documented in HPI. [facility] Past Medical History Medical History (Updated 11/07/23 @ 22:02 by Ameena Alberts PA-C) Arterial occlusive disease Asthma Patient had asthma as a child/team. Followed by Dr. Landaverde for several years who does not believe she has COPD, asthma, or significant pulmonary parenchymal disease. Bipolar disorder Celiac disease Cervical radiculopathy Chronic anticoagulation On Xarelto for paroxysmal atrial fibrillation/flutter. 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 Echo in January 2023 showed normal LV function with an EF of 60 to 65% and grade 1 diastolic dysfunction. Coronary artery disease Diffuse severe LAD disease with positive IFR and moderate RCA disease noted on cardiac catheterization in 2019. Managed medically. De Quervain's tenosynovitis Diabetic peripheral neuropathy Diverticulosis Eczema Gastroesophageal reflux disease Hyperlipidemia Hypertension Hypothyroidism Insulin dependent type 2 diabetes mellitus Iron deficiency anemia With history of blood transfusion. Irritable bowel syndrome with diarrhea Kid
[2023-11-06] MEDS: IPRATROPIUM 0.5 MG/ALBUTEROL SULFATE 2.5 MG AMPUL.NEB 3 ML INHALATION (12:41)
[2023-11-06] MEDS: predniSONE 20 MG TABLET 40 MG PO (12:42)
== END 2023-11-06 13:20 | disposition home or self-care (01) ==
PROVIDERS: Emergency Provider Nurse Practitioner Family; PCP Family Medicine
DX: J44.1 Chronic obstructive pulmonary disease with (acute) exacerbation (principal); J06.9 Acute upper respiratory infection, unspecified; K90.0 Celiac disease; I48.0 Paroxysmal atrial fibrillation; Z79.01 Long term (current) use of anticoagulants; I11.0 Hypertensive heart disease with heart failure; I50.40 Unspecified combined systolic (congestive) and diastolic (congestive) heart failure; I25.10 Atherosclerotic heart disease of native coronary artery without angina pectoris; E11.42 Type 2 diabetes mellitus with diabetic polyneuropathy; E78.5 Hyperlipidemia, unspecified; G25.81 Restless legs syndrome; M06.9 Rheumatoid arthritis, unspecified; Z86.73 Personal history of transient ischemic attack (TIA), and cerebral infarction without residual deficits; Z96.651 Presence of right artificial knee joint; I70.90 Unspecified atherosclerosis
CPT/HCPCS: 99213; G0463; J7512

== ENCOUNTER 2023-11-07 10:37 | Inpatient (IN) | payer MEDICARE, SELFPAY ==
[2023-11-07] VITALS (27 sets, daily range): BP systolic 130–156; BP diastolic 62–84; PULSE 82–108; RESP 12–20; TEMP 36.2–36.8; O2SAT 93–100; BMI 35.6
--- NOTE | ~2023-11-07 | XR_ITS ---
EXAMINATION: XR chest 2V DATE: 11/07/2023 11:06 INDICATION: Shortness of breath TECHNIQUE: frontal and lateral views of the chest were obtained. COMPARISON: Chest radiograph dated 03/24/2023 FINDINGS: The lungs are clear with no focal airspace opacities, pulmonary edema, pleural effusion or pneumothor ax. The cardiomediastinal silhouette is normal. Mitraclip projecting over the heart. Cholecystectomy clips at the right upper quadrant. IMPRESSION: 1. No acute cardiopulmonary disease. Reviewed, dictated and finalized at location A.
--- NOTE | 2023-11-07 10:44 | ECG_ITS ---
SEE SCANNED COPY FOR CONFIRMED REPORT MTDD
[2023-11-07 10:58] LABS: Basophils Percent Auto 0.6 % (0.2-1.2); Eosinophils Absolute Auto 0.1 K/mm3 (0-0.3); Hematocrit 41.5 % (37.0-47.0); Hemoglobin 13.6 g/dL (12.0-15.0); Immature Granulocyte Absolute 0.04 K/mm3 (0.00-0.031); Immature Granulocyte Percent A 0.6 % (0-0.5); Lymphocytes Absolute Auto 0.88 K/mm3 (0.9-3.2); Lymphocytes Percent Auto 12.9 % (18.3-44.2); Mean Corpuscular HGB Conc 32.8 g/dl (32-36); Mean Corpuscular Hemoglobin 28.9 pg (26-34); Mean Corpuscular Volume 88.3 fl (80-100); Mean Platelet Volume 10.7 fl (7.4-10.4); Monocytes Absolute Auto 0.6 K/mm3 (0.1-0.6); Monocytes Percent Auto 9.1 % (2.6-8.5); Neutrophils Absolute Auto 5.2 K/mm3 (1.3-6.7); Neutrophils Percent Auto 75.8 % (45.5-73.1); Platelet Count Result 162 k/mm3 (150-375); Red Cell Distribution Width 13.4 % (11.5-14.5); White Blood Count 6.8 K/mm3 (4.5-10.0)
[2023-11-07 11:11] LABS: Alanine Aminotransferase 23 U/L (6-35); Albumin Level 4.6 g/dL (3.5-5.1); Alkaline Phosphatase 129 U/L (38-126); Anion Gap 8 mmol/L (4-12); Aspartate Amino Transferase 30 U/L (14-36); Bilirubin,Total 0.9 mg/dL (0.2-1.3); Blood Urea Nitrogen 21 mg/dL (7-17); Calcium 10.2 mg/dL (8.4-10.2); Carbon Dioxide 26 mmol/L (22-30); Chloride 107 mmol/L (98-107); Estimated CRCL calculation 70 ml/min; Estimated Glomerular Filt Rate > 60; Glucose 232 mg/dL (65-110); Potassium 3.5 mmol/L (3.4-5.0); Sodium 141 mmol/L (137-145)
[2023-11-07 11:34] LABS: Influenza A QL RT-PCR Negative (Negative); Influenza B QL RT-PCR Negative (Negative); RSV RNA, RT-PCR Negative (Negative); SARS-CoV-2 RNA PCR Negative (Negative)
--- NOTE | 2023-11-07 13:06 | ED.GENADULT ---
HPI - General Adult General Chief complaint: Shortness of Breath/Dyspnea Stated complaint: SOB Time Seen by Provider: 11/07/23 12:24 History of Present Illness HPI narrative: 60-year-old female history of COPD presenting to the emergency department for evaluation for increased cough and congestion. Patient states that she did recently start taking care of her grand babies to prevent that from going into the foster care system. Patient states that with the children had runny noses and coughs. Patient does report worsening symptoms over the last few days. Patient did take a breathing at home but denied any significant improvement from this. Patient does report history of COPD and CHF. Related Data Home Medications Medication Instructions Recorded Confirmed rivaroxaban 20 mg tablet (Xarelto) 20 mg PO DAILY 04/03/21 11/06/23 acetaminophen 500 mg tablet 500 mg PO Q6H PRN pain 08/21/21 11/06/23 (Tylenol Extra Strength) vibegron 75 mg tablet (Gemtesa) 75 mg PO DAILY 12/31/22 11/06/23 bupropion HCl 150 mg 24 hr tablet, 150 mg PO DAILY 11/06/23 11/06/23 extended release Allergies Allergy/AdvReac Type Severity Reaction Status Date / Time codeine Allergy Intermediate Itching Verified 11/06/23 12:06 diphenhydramine Allergy Unknown JERKY/JUMPY, Verified 11/06/23 12:06 GO CRAZY IN MY SKIN latex Allergy Unknown Hives Verified 11/06/23 12:06 Penicillins Allergy Unknown Hives Verified 11/06/23 12:06 cephalexin AdvReac Unknown Diarrhea Verified 11/07/23 13:07 Review of Systems Review of Systems: All systems reviewed & are unremarkable except as noted in HPI and below PMFSH Past Medical History Medical History (Updated 11/07/23 @ 17:20 by Ameena Alberts PA-C) Arterial occlusive disease Asthma Patient had asthma as a child/team. Followed by Dr. Landaverde for several years who does not believe she has COPD, asthma, or significant pulmonary parenchymal disease. Bipolar disorder Celiac disease Cervical radiculopathy Chronic anticoagulation On Xarelto for paroxysmal atrial fibrillation/flutter. 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 Echo in January 2023 showed normal LV function with an EF of 60 to 65% and grade 1 diastolic dysfunction. Coronary artery disease Diffuse severe LAD disease with positive IFR and moderate RCA disease noted on cardiac catheterization in 2019. Managed medically. De Quervain's tenosynovitis Diabetic peripheral neuropathy Diverticulosis Eczema Gastroesophageal reflux disease Hyperlipidemia Hypertension Hypothyroidism Insulin dependent type 2 diabetes mellitus Iron deficiency anemia With history of blood transfusion. Irritable bowel syndrome with diarrhea Kidney stones Morbid obesity Status post gastric bypass surgery in September 2002 with a preoperative weight of 280 lb. Obstructive sleep apnea Patient had history of obstructive sleep apnea but repeat sleep study March 2022 demonstrated resolution of sleep apnea. Paroxysmal atrial fibrillation Paroxysmal atrial flutter Peripheral neuropathy Regurgitation of stomach contents Restless leg syndrome Rheumatoid arthritis Severe mitral valve regurgitation Status post MitraClip in 2019. Thyroid disease Patient no longer takes thyroid medicine. TSH 2.11 October 2021 Transient ischemic attack Surgical History Surgical History (Updated 11/07/23 @ 16:19 by Ameena Alberts PA-C) History of bilateral carpal tunnel release History of bladder surgery Insertion of bladder stimulator for urinary incontinence. History of section History of cholecystectomy History of cystoscopy History of esophagogastroduodenoscopy (EGD) History of gastric bypass (09/2002) History of hysterectomy History of lithotripsy History of right knee joint replacement (2008) Multiple kidney stones Surgery X2 Status post trigger finger release
[2023-11-07] MEDS: ALBUTEROL SULFATE NEB 2.5 MG/3 ML INH 5 MG INHALATION (13:18)
[2023-11-07] MEDS: methylPREDNISolone SOD SUCC 125 MG VIAL IV PUSH (13:41)
[2023-11-07 13:52] LABS: NT Pro B Type Natriuretic Pept 1680 pg/mL (19.9-100)
[2023-11-07] MEDS: FUROSEMIDE INJ 40 MG/4 ML VIAL IV PUSH ×2 (15:17→21:24)
--- NOTE | 2023-11-07 16:05 | PM.IMHP ---
H&P: HPI History of Present Illness Date/Time: 11/07/23 17:05 Chief Complaint: Shortness of breath. Narrative: This is a 68-year-old female with combined systolic and diastolic congestive heart failure with improved ejection fraction, mitral valve regurgitation status post MitraClip, paroxysmal atrial fibrillation and flutter on chronic anticoagulation, insulin-dependent type 2 diabetes mellitus, and several other comorbidities who presented to the emergency department for evaluation of shortness of breath. The patient provides the following history. She has shortness of breath with exertion for ?quite some time? but over the last several days she has felt increasingly short of breath. She and her took in two of their grand children ([id number] and 7-month-old) 1 week ago and they have both had upper respiratory symptoms. The patient has since developed a persistent cough which has been productive of thick green sputum, increasing shortness of breath, and wheezing. She was seen at urgent care couple of days ago and was prescribed steroids and an antibiotic. She has been using Symbicort which she has at home with lesser and lesser benefit. She also complains of pain in her ribs from coughing so hard. She has chronic orthopnea which is unchanged. She denies documented fever, sinus congestion, sore throat, pleuritic pain, palpitations, nausea, vomiting, diarrhea, and calf pain. Of note, she reports a history of asthma as a teenager and COPD and she was followed by Dr. Landaverde for several years. His note dated 08/20/2022 stated: ?At this time I will discontinue all inhalers.?I do not believe she has COPD, asthma or any significant pulmonary parenchymal disease.? She is morbidly obese (she has lost 30 lb since that time) and she is deconditioned.?Patient can follow-up with us on a p.r.n. basis and can be re-referred to us should her clinical condition change.? In the ED: She was afebrile on arrival with an SpO2 in the upper 90s on room air. CMP and CBC were pretty unremarkable. ProBNP was 1680 which is a bit higher than her baseline. She tested negative for influenza, RSV, and COVID. Chest x-ray showed no acute cardiopulmonary disease. She received a nebulizer treatment with some improvement in her symptoms. She also received Lasix and Solu-Medrol. She continued to have a significant cough and wheezing and is being admitted in this setting for further treatment. Review of Systems Review of Systems: Twelve systems were reviewed. She reports a lot of stress with her family life, her daughter has had some addiction issues and she and her took in her 2 young children last week to avoid putting them in foster care. Her was recently diagnosed with lung cancer and he continues to smoke 2+ packs of cigarettes a day. She has a lot of stress and anxiety because of these life changes and she reports that her anxiety is much worse when her shortness of breath gets bad. Except as documented, all other systems were reviewed and are negative. [facility] Past Medical History Medical History (Updated 11/07/23 @ 22:02 by Ameena Alberts PA-C) Arterial occlusive disease Asthma Patient had asthma as a child/team. Followed by Dr. Landaverde for several years who does not believe she has COPD, asthma, or significant pulmonary parenchymal disease. Bipolar disorder Celiac disease Cervical radiculopathy Chronic anticoagulation On Xarelto for paroxysmal atrial fibrillation/flutter. 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 Echo in January 2023 showed normal LV function with an EF of 60 to 65% and grade 1 diastolic dysfunction. Coronary artery disease Diffuse severe LAD disease with positive IFR and moderate RCA disease noted on cardiac catheterization in 2019. Managed medically. De Quervain's tenosynovitis Diabetic peripheral neuropathy Diverticulosis
--- NOTE | 2023-11-07 17:55 | ADMGEN ---
This patient, Charlene Chen, was admitted to [facility] Surg Room 311-01 @ 1755. Patient/family oriented to hospital policies and general routines including ID bracelet, bed and alarms, visiting hours, pain management, procedures, bathroom and other care routines, personal items, smoking policy, room service/diet, and visiting hours. Information on how to activate the Rapid Response Team has been discussed. Patient/Family are encouraged to report perceived risks to care and to ask questions if they do not understand what they are told or what they should do.
[2023-11-07] MEDS: ALBUTEROL SULFATE NEB 2.5 MG/3 ML INH INHALATION (20:26)
[2023-11-07 20:31] LABS: Glucose Point of Care > 500 mg/dl (65-105)
[2023-11-07] MEDS: INSULIN ASPART (*BKC) 100 UNITS/ML 15 UNITS SUB-Q (21:25)
[2023-11-07 22:41] LABS: Glucose Point of Care 493 mg/dl (65-105)
[2023-11-08] VITALS (18 sets, daily range): BP systolic 100–136; BP diastolic 51–81; PULSE 77–107; RESP 14–20; TEMP 35.5–36.2; O2SAT 93–97
[2023-11-08] MEDS: INSULIN ASPART (*BKC) 100 UNITS/ML 12 UNITS SUB-Q ×2 (00:02→02:48)
[2023-11-08] MEDS: INSULIN GLARGINE (*BKC) 100 UNITS/ML 18 UNITS SUB-Q (00:03)
[2023-11-08] MEDS: carvediloL 12.5 MG TABLET PO ×3 (00:07→20:52)
[2023-11-08] MEDS: SACUBITRIL/VALSARTAN 49-51 MG TABLET 1 TABLET PO ×3 (00:11→20:52)
[2023-11-08 02:20] LABS: Glucose Point of Care 323 mg/dl (65-105)
[2023-11-08] MEDS: ALBUTEROL SULFATE NEB 2.5 MG/3 ML INH INHALATION ×4 (02:47→20:14)
[2023-11-08 05:26] LABS: Anion Gap 8 mmol/L (4-12); Blood Urea Nitrogen 30 mg/dL (7-17); Calcium 9.6 mg/dL (8.4-10.2); Carbon Dioxide 28 mmol/L (22-30); Chloride 102 mmol/L (98-107); Estimated CRCL calculation 63 ml/min; Estimated Glomerular Filt Rate > 60; Glucose 84 mg/dL (65-110); Potassium 3.4 mmol/L (3.4-5.0); Sodium 138 mmol/L (137-145)
[2023-11-08 08:04] LABS: Glucose Point of Care 67 mg/dl (65-105)
[2023-11-08] MEDS: predniSONE 20 MG TABLET PO (08:37)
[2023-11-08] MEDS: buPROPion HCL XL (24 HR) 150 MG TABCR PO (08:37)
[2023-11-08] MEDS: ACETAMINOPHEN 325 MG TABLET 650 MG PO ×2 (08:38→16:25)
[2023-11-08] MEDS: FUROSEMIDE 40 MG TABLET PO (08:38)
[2023-11-08] MEDS: TOLNAFTATE 1% POWDER 45 GM BTL 1 APPLIC TOPICAL (08:41)
[2023-11-08 09:46] LABS: Glucose Point of Care 175 mg/dl (65-105)
[2023-11-08 11:50] LABS: Glucose Point of Care 232 mg/dl (65-105)
[2023-11-08] MEDS: INSULIN ASPART (*BKC) 100 UNITS/ML 7 UNITS SUB-Q ×2 (12:13→16:55)
--- NOTE | 2023-11-08 15:39 | PM.IMPN ---
Progress Note: A&P Assessment and Plan (1) Acute exacerbation of chronic obstructive pulmonary disease (COPD): Code(s): J44.1 - Chronic obstructive pulmonary disease with (acute) exacerbation Status: Acute Assessment and Plan: PFTs in 2021 showed mild obstructive lung disease with no bronchodilator response history suggests asthmatic component since childhood versus reactive airway disease current exacerbation likely due to viral bronchitis caused by exposure to ill children continue nebulized dilators 5/5 increase steroids to Solu-Medrol 60 mg IV q.6 hours and monitor response 5/5 symptomatic therapy with benzonatate and guaifenesin with codeine (2) Insulin dependent type 2 diabetes mellitus: Code(s): E11.9 - Type 2 diabetes mellitus without complications; Z79.4 - assisted (current) use of insulin Status: Acute Assessment and Plan: continue basal and sliding scale insulin 5/5 AM sugar 67, Lantus held; noon sugar 232 (3) 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 She has 2 inhalers at home and a nebulizer machine. She was around sick grandchildren a few days prior to admission. She had a decreasing cough and shortness of breath. Went to urgent care and failed outpatient antibiotics and prednisone. 5/5 minimally better after 1 dose of Solu-Medrol overnight and prednisone 20 mg this morning. Still with dry cough and chest tightness. Remain short of breath with conversation. No fevers or chills. No chest pain. No swelling. Did not sleep well due to coughing. No new GI or issues or abnormal bleeding on her anticoagulant. She is a nonsmoker but is chronic exposure to secondhand smoke due to her for who was recently diagnosed with lung cancer. Review of Systems Review of Systems: All systems reviewed & are unremarkable except as noted in HPI and below Exam Narrative: HEENT: PERRL, sclerae nonicteric, pharyngeal mucosa pink and intact NECK: No JVD CHEST: MILDLY TACHYPNEIC. CONVERSATION IS PUNCTUATED BY DRY COUGH. CHEST IS TIGHT WITH DIFFUSE INSPIRATORY AND EXPIRATORY WHEEZES AND PROLONGED EXPIRATORY DAYS. HEART: NL S1/S2, regular, no murmur ABDOMEN: BS+, soft, nontender, no mass, no bruits EXTREMITIES: No cyanosis, edema, or clubbing NEUROLOGIC: CN intact and symmetric to inspection. MUSCULOSKELETAL: Tone and strength symmetric. PSYCH: Alert. Oriented to person, place, and time. Objective Data Vital Signs Vital Signs: Vital Signs - 24 hr 11/07/23 16:00 11/07/23 16:01 11/07/23 16:15 Temperature Pulse Rate 99 100 100 Respiratory Rate 14 13 14 Blood Pressure 144/76 H Pulse Oximetry 97 96 98 Oxygen Delivery 11/07/23 16:30 11/07/23 16:45 11/07/23 17:00 Temperature Pulse Rate 97 101 H 101 H Respiratory Rate 16 12 Blood Pressure 143/77 H Pulse Oximetry 97 99 97 Oxygen Delivery 11/07/23 17:15 11/07/23 17:30 11/07/23 17:45 Temperature Pulse Rate 102 H 104 H 97 Respiratory Rate 13 20 19 Blood Pressure 145/71 H Pulse Oximetry 99 98 Oxygen Delivery 11/07/23 20:27 11/07/23 20:27 11/07/23 20:35 Temperature Pulse Rate 103 H 103 H 103 H Respiratory Rate 18 20 Blood Pressure Pulse Oximetry 96 Oxygen Delivery Room Air 11/07/23 21:17 11/08/23 00:07 11/07/23 20:00 Temperature 98.2 F Pulse Rate 103 H 103 H Respiratory Rate 17 Blood
[2023-11-08] MEDS: RIVAROXABAN 20 MG TABLET PO (16:25)
[2023-11-08] MEDS: BENZONATATE 100 MG CAPSULE 200 MG PO (16:25)
[2023-11-08] MEDS: guaiFENesin/CODEINE (*CRX) 200/20 MG 10 ML SYRUP PO ×2 (16:29→20:52)
[2023-11-08] MEDS: INSULIN ASPART (*BKC) 100 UNITS/ML SUB-Q ×2 (16:55→20:55)
[2023-11-08 16:58] LABS: Glucose Point of Care 333 mg/dl (65-105)
[2023-11-08] MEDS: methylPREDNISolone SOD SUCC 125 MG VIAL 60 MG IV PUSH (16:59)
[2023-11-08 20:32] LABS: Glucose Point of Care 358 mg/dl (65-105)
[2023-11-09] VITALS (13 sets, daily range): BP systolic 125–144; BP diastolic 68–82; PULSE 82–96; RESP 16–20; TEMP 36.2–36.4; O2SAT 94–98
--- NOTE | 2023-11-09 | ECHO_ITS ---
Patient Info Name: Charlene Chen Age: 68 years : 1955 Gender: Female Ht: 66 in Wt: 220 lbs BSA: 2.20 m2 HR: 76 bpm Heart Rhythm: Sinus Rhythm, Right Bundle Branch Block Technical Quality: Fair Exam Date: 11/09/2023 4:24 PM Exam Location: Echo Lab Patient Status: Inpatient Admit Date: 11/08/2023 Staff Ordering Physician: Maritza Medina MD Abrasive Worker: Trace Self RDCS Attending Provider: Dario Wilde MD Referring Physician: Carol PATTERSON; Exam Type: CA echo doppler color flow Study Info Indications I50.20 - Unspecified systolic (congestive) heart failure Complete two-dimensional, color flow and Doppler transthoracic echocardiogram is performed. Summary 1. Left ventricular chamber dimension is mildly enlarged. 2. Left ventricular systolic function is mildly reduced, estimated at 45-50%. 3. Left ventricular septal wall motion is abnormal with septal motion related to bundle branch block. 4. The left ventricular diastolic function is grade I diastolic dysfunction. 5. Right ventricular systolic function is normal. 6. Left atrial chamber dimension is moderately enlarged. 7. There is mild aortic valve regurgitation. 8. Known history of MitraClip. 9. There is moderate mitral valve regurgitation. Left Ventricle Left ventricular chamber dimension is mildly enlarged. Left ventricular systolic function is mildly reduced, estimated at 45-50%. There is no increased left ventricular wall thickness. Left ventricular septal wall motion is abnormal with septal motion related to bundle branch block. The left ventricular diastolic function is grade I diastolic dysfunction. Right Ventricle Right ventricular chamber dimension is normal. Right ventricular systolic function is normal. Left Atria Left atrial chamber dimension is moderately enlarged. Right Atria Right atrial chamber dimension is normal. Atrial Septum Intact interatrial septum visualized by color flow imaging. Aortic Valve The aortic valve is not well visualized. There is no aortic valve stenosis. There is mild aortic valve regurgitation. Pulmonic Valve The pulmonic valve is not well visualized. Mitral Valve Known history of MitraClip. There is moderate mitral valve regurgitation. Tricuspid Valve There is trace tricuspid valve regurgitation. Pericardium/Pleural There is no pericardial effusion. Inferior Vena Cava Normal inferior vena cava with >50% collapse upon inspiration consistent with normal right atrial pressure, 3 mmHg. Aorta The aortic root size at the sinus of Valsalva is normal. Left Ventricular Outflow Tract Name Value Normal LVOT 2D LVOT Diameter 2.0 cm LVOT Doppler LVOT Peak Gradient 2 mmHg LVOT Mean Gradient 1 mmHg LVOT VTI 13 cm LVOT VTI/AV VTI Ratio 0.6 LVOT Stroke Volume 43 ml LVOT CO 3.1 l/min LVOT CI 1.4 l/min/m2 Pulmonic Valve Name Value Normal
[2023-11-09] MEDS: methylPREDNISolone SOD SUCC 125 MG VIAL 60 MG IV PUSH ×4 (00:22→16:54)
[2023-11-09] MEDS: ALBUTEROL SULFATE NEB 2.5 MG/3 ML INH INHALATION ×4 (02:15→19:16)
[2023-11-09] MEDS: guaiFENesin/CODEINE (*CRX) 200/20 MG 10 ML SYRUP PO ×2 (06:36→20:32)
[2023-11-09 07:49] LABS: Glucose Point of Care 368 mg/dl (65-105)
[2023-11-09] MEDS: SACUBITRIL/VALSARTAN 49-51 MG TABLET 1 TABLET PO ×2 (08:28→20:31)
[2023-11-09] MEDS: INSULIN ASPART (*BKC) 100 UNITS/ML SUB-Q ×4 (08:28→20:32)
[2023-11-09] MEDS: INSULIN ASPART (*BKC) 100 UNITS/ML 7 UNITS SUB-Q ×3 (08:28→16:54)
[2023-11-09] MEDS: buPROPion HCL XL (24 HR) 150 MG TABCR PO (08:28)
[2023-11-09] MEDS: BENZONATATE 100 MG CAPSULE 200 MG PO ×3 (08:28→16:47)
[2023-11-09] MEDS: FUROSEMIDE 40 MG TABLET PO ×2 (08:28→16:47)
[2023-11-09] MEDS: carvediloL 12.5 MG TABLET PO ×2 (08:28→20:31)
[2023-11-09] MEDS: INSULIN GLARGINE (*BKC) 100 UNITS/ML 18 UNITS SUB-Q (08:31)
[2023-11-09 11:36] LABS: Glucose Point of Care 482 mg/dl (65-105)
--- NOTE | 2023-11-09 14:56 | PM.IMPN ---
Progress Note: A&P Assessment and Plan (1) Acute exacerbation of chronic obstructive pulmonary disease (COPD): Code(s): J44.1 - Chronic obstructive pulmonary disease with (acute) exacerbation Status: Acute Assessment and Plan: PFTs in 2021 showed mild obstructive lung disease with no bronchodilator response COPD exacerbation continue IV steroids Nebulizers and oral doxycycline continue cough syrup cxr shows no pneumonia (2) Insulin dependent type 2 diabetes mellitus: Code(s): E11.9 - Type 2 diabetes mellitus without complications; Z79.4 - [facility] (current) use of insulin Status: Acute Assessment and Plan: continue basal and sliding scale insulin sugars are good at 84 (3) 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: Code(s): I50.40 - Unspecified combined systolic (congestive) and diastolic (congestive) heart failure; I38 - Endocarditis, valve unspecified Status: Acute Assessment and Plan: clinically euvolemic cxr shows pulmonary edema continue oral lasix can double dose in hospital (4) Chronic anticoagulation: Code(s): Z79.01 - 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 Pt states she has been looking after two grandkids 7 months and 17 months and must have caught something from them. Pt is coughing whitish phlegm continue present treatment with iv steroids oral abx and oral lasix. Review of Systems Review of Systems: Pt is coughing alot Exam Narrative: General: Lady with wet cough CHEST: Sob at rest BL crackles at Bases HEART: NL S1/S2, regular, no murmur ABDOMEN: BS+, soft, nontender, no mass, no bruits EXTREMITIES: 1+ edema at ankles NEUROLOGIC: CN intact and symmetric to inspection. MUSCULOSKELETAL: Tone and strength symmetric. PSYCH: Alert. Oriented to person, place, and time. Objective Data Vital Signs Vital Signs: Vital Signs - 24 hr 11/08/23 20:14 11/08/23 20:19 11/08/23 20:26 Temperature Pulse Rate 107 H 107 H 98 Respiratory Rate 18 18 Blood Pressure Pulse Oximetry 97 Oxygen Delivery Room Air 11/08/23 20:45 11/08/23 20:52 11/08/23 20:00 Temperature 36.2 C L Pulse Rate 82 82 Respiratory Rate 16 Blood Pressure 132/81 Pulse Oximetry 94 Oxygen Delivery Room Air 11/09/23 02:15 11/09/23 02:25 11/09/23 05:11 Temperature 36.4 C L Pulse Rate 82 85 82 Respiratory Rate 18 18 18 Blood Pressure 144/75 H Pulse Oximetry 98 Oxygen Delivery 11/09/23 08:04 11/09/23 08:04 11/09/23 08:16 Temperature Pulse Rate 92 86 Respiratory Rate 20 20 Blood Pressure Pulse Oximetry 98 Oxygen Delivery Room Air 11/09/23 08:00 11/09/23 14:00 11/09/23 14:10 Temperature 36.3 C L Pulse Rate 86 83 96 Respiratory Rate 20 18 20 Blood Pressure 125/68 Pulse Oximetry 98 94 Oxygen Delivery Room Air 11/09/23 14:20 Temperature Pulse Rate 91 Respiratory Rate 20 Blood Pressure Pulse Oximetry Oxygen Delivery Intake/Output Intake/Output: Intake & Output 11/06/23 11/07/23 11/08/23 11/09/23 23:59 23:59 23:59 23:59 Intake Total 1450 630 Balance 1450 630 Meds/Results Medications: Active Medications Generic Name Dose Route Start Last Admin Trade Name Freq PRN Reason Stop Dose Admin Acetaminophen 650 mg 11/07/23 22:17 11/08/23 16:25 Acetaminophen 325 Mg Tablet PO 650 mg Q6H
[2023-11-09 16:39] LABS: Glucose Point of Care 372 mg/dl (65-105)
[2023-11-09] MEDS: RIVAROXABAN 20 MG TABLET PO (16:47)
[2023-11-09] MEDS: DOXYCYCLINE HYCLATE 100 MG TABLET PO (20:31)
[2023-11-09 20:54] LABS: Glucose Point of Care 285 mg/dl (65-105)
[2023-11-10] VITALS (13 sets, daily range): BP systolic 115–137; BP diastolic 66–76; PULSE 73–95; RESP 16–20; TEMP 36.1–36.2; O2SAT 94–100
[2023-11-10] MEDS: methylPREDNISolone SOD SUCC 125 MG VIAL 60 MG IV PUSH ×3 (00:20→17:29)
[2023-11-10] MEDS: ALBUTEROL SULFATE NEB 2.5 MG/3 ML INH INHALATION ×4 (01:32→20:21)
[2023-11-10 06:31] LABS: Anion Gap 5 mmol/L (4-12); Blood Urea Nitrogen 33 mg/dL (7-17); Calcium 9.2 mg/dL (8.4-10.2); Carbon Dioxide 29 mmol/L (22-30); Chloride 100 mmol/L (98-107); Estimated CRCL calculation 63 ml/min; Estimated Glomerular Filt Rate > 60; Glucose 333 mg/dL (65-110); Potassium 3.5 mmol/L (3.4-5.0); Sodium 134 mmol/L (137-145)
[2023-11-10 07:24] LABS: Glucose Point of Care 332 mg/dl (65-105)
[2023-11-10] MEDS: FUROSEMIDE 40 MG TABLET PO ×2 (09:25→17:29)
[2023-11-10] MEDS: buPROPion HCL XL (24 HR) 150 MG TABCR PO (09:25)
[2023-11-10] MEDS: BENZONATATE 100 MG CAPSULE 200 MG PO ×2 (09:25→17:29)
[2023-11-10] MEDS: SACUBITRIL/VALSARTAN 49-51 MG TABLET 1 TABLET PO ×2 (09:25→21:17)
[2023-11-10] MEDS: DOXYCYCLINE HYCLATE 100 MG TABLET PO ×2 (09:26→21:17)
[2023-11-10] MEDS: INSULIN ASPART (*BKC) 100 UNITS/ML SUB-Q ×4 (09:26→21:21)
[2023-11-10] MEDS: carvediloL 12.5 MG TABLET PO ×2 (09:26→21:24)
[2023-11-10] MEDS: INSULIN ASPART (*BKC) 100 UNITS/ML 7 UNITS SUB-Q ×3 (09:27→17:30)
[2023-11-10] MEDS: INSULIN GLARGINE (*BKC) 100 UNITS/ML 18 UNITS SUB-Q (09:28)
[2023-11-10 11:18] LABS: Glucose Point of Care 451 mg/dl (65-105)
[2023-11-10 12:23] LABS: Glucose Point of Care 426 mg/dl (65-105)
[2023-11-10] MEDS: guaiFENesin/CODEINE (*CRX) 200/20 MG 10 ML SYRUP PO (12:31)
[2023-11-10 16:44] LABS: Glucose Point of Care 278 mg/dl (65-105)
[2023-11-10] MEDS: RIVAROXABAN 20 MG TABLET PO (17:29)
--- NOTE | 2023-11-10 17:36 | PM.IMPN ---
Progress Note: A&P Assessment and Plan (1) Acute exacerbation of chronic obstructive pulmonary disease (COPD): Code(s): J44.1 - Chronic obstructive pulmonary disease with (acute) exacerbation Status: Acute Assessment and Plan: PFTs in 2021 showed mild obstructive lung disease with no bronchodilator response Acute COPD exacerbation CXR showng clear lung pacheco. continue steroids, nebulizers and oral doxycycline Wean to oral Prednisone. Add mucines. Check sputum cx. (2) Insulin dependent type 2 diabetes mellitus: Code(s): E11.9 - Type 2 diabetes mellitus without complications; Z79.4 - intermediate card tender (current) use of insulin Status: Acute Assessment and Plan: The patient's blood glucose was reviewed on 11/09 Glucose poorly controlled. Continue AccuCheks covering with sliding scale. Hypoglycemia protocol available as needed. Wean steroids. Check A1c. 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 Clinically euvolemic. CXR clear but BNP 1680. She was continued on her oral Lasix but dose was doubled here. Echo showing EF 45-50% which is lower then her baseline, Grade I diastolic dysfunction and moderate MR Pedal edema much better. Will back off to Lasix 60mg daily. Continue Entresto, Coreg. Add Emapgliflozin. (4) Chronic anticoagulation: Code(s): Z79.01 - intermediate card tender (current) use of anticoagulants Status: Acute Assessment and Plan: Patient with pAFib EKG showing sinus rhythm Continue Coreg. Continue Xarelto Plan DVT prophylaxis - Xarelto Code status - full Subjective Date/time seen: 11/10/23 17:36 Interval history: 68yo female with combined systolic and diastolic congestive heart failure with improved ejection fraction, mitral valve regurgitation status post MitraClip, pAFib on chronic anticoagulation, insulin-dependent type 2 diabetes mellitus, and several other comorbidities who presented to the emergency department for evaluation of shortness of breath. Assuming care. Chart reviewed.Cough productive of green thick sputum. Chest pain with coughing. Last ischemic evaluation was 4 years ago with [facility] before her valve surgery. She has noted decreased pedal edema. Exam Narrative: AF 97.2 133/66 87 20 100% ra Gen - NARD Chest - inspiratory and expiratory rhonchi. nml RR. No wheezing CV - RRR S1/S2. Abd - Soft, NT/ND, Positive BS Ext - No pedal edema Psych - Nml mood and affect Skin - Warm and dry Objective Data Vital Signs Vital Signs: Vital Signs - 24 hr 11/09/23 19:16 11/09/23 19:34 11/09/23 20:31 Temperature Pulse Rate 95 92 92 Respiratory Rate 20 20 Blood Pressure Pulse Oximetry Oxygen Delivery Fraction of Inspired Oxygen 11/09/23 20:00 11/09/23 19:55 11/10/23 01:33 Temperature 97.1 F L Pulse Rate 86 94 Respiratory Rate 16 18 Blood Pressure 135/82 Pulse Oximetry 95 Oxygen Delivery Room Air Fraction of Inspired Oxygen 11/10/23 01:45 11/10/23 05:25 11/10/23 07:59 Temperature 97 F L Pulse Rate 95 75 Respiratory Rate 18 20 Blood Pressure 137/72 Pulse Oximetry 94 94 Oxygen Delivery Room Air Fraction of Inspired Oxygen 21 11/10/23 07:59 11/10/23 08:08 11/10/23 08:00 Temperature Pulse Rate 88 86 Respiratory Rate 18 18 Blood Pressure Pulse Oximetry Oxygen Delivery Room Air Fraction of Inspired Oxygen 11/10/23 13:14 11/10/23 13:26 11/10/23 14:00 Temperature 97.2 F L Pulse Rate 87 84 87 Respiratory Rate 18 18 20 Blood Pressure 133/66 Pulse Oximetry 100 Oxygen Delivery Fraction of Inspired Oxygen Intake/Output Intake/Output: Intake & O
[2023-11-10] MEDS: guaiFENesin 12 HR 600 MG TABCR PO (21:17)
[2023-11-10 21:36] LABS: Glucose Point of Care 316 mg/dl (65-105)
[2023-11-11] VITALS (10 sets, daily range): BP systolic 91–138; BP diastolic 46–64; PULSE 62–85; RESP 14–20; TEMP 36.2–36.3; O2SAT 94–97
[2023-11-11] MEDS: ALBUTEROL SULFATE NEB 2.5 MG/3 ML INH INHALATION ×3 (03:12→14:18)
[2023-11-11 06:31] LABS: Basophils Percent Auto 0.2 % (0.2-1.2); Hematocrit 46.1 % (37.0-47.0); Hemoglobin 15.3 g/dL (12.0-15.0); Immature Granulocyte Absolute 0.09 K/mm3 (0.00-0.031); Immature Granulocyte Percent A 0.9 % (0-0.5); Lymphocytes Absolute Auto 1.35 K/mm3 (0.9-3.2); Lymphocytes Percent Auto 12.8 % (18.3-44.2); Mean Corpuscular HGB Conc 33.2 g/dl (32-36); Mean Corpuscular Hemoglobin 28.7 pg (26-34); Mean Corpuscular Volume 86.5 fl (80-100); Mean Platelet Volume 11.2 fl (7.4-10.4); Monocytes Absolute Auto 0.6 K/mm3 (0.1-0.6); Monocytes Percent Auto 5.9 % (2.6-8.5); Neutrophils Absolute Auto 8.4 K/mm3 (1.3-6.7); Neutrophils Percent Auto 80.2 % (45.5-73.1); Platelet Count Result 211 k/mm3 (150-375); Red Blood Count 5.33 M/mm3 (4.2-5.4); Red Cell Distribution Width 13.4 % (11.5-14.5); White Blood Count 10.5 K/mm3 (4.5-10.0)
[2023-11-11 06:41] LABS: Albumin Level 3.8 g/dL (3.5-5.1); Anion Gap 4 mmol/L (4-12); Blood Urea Nitrogen 38 mg/dL (7-17); Calcium 8.9 mg/dL (8.4-10.2); Carbon Dioxide 32 mmol/L (22-30); Chloride 99 mmol/L (98-107); Estimated CRCL calculation 57 ml/min; Estimated Glomerular Filt Rate 55; Glucose 244 mg/dL (65-110); Magnesium 2.3 mg/dL (1.6-2.3); Phosphorus 3.7 mg/dL (2.5-4.5); Potassium 3.5 mmol/L (3.4-5.0); Sodium 135 mmol/L (137-145)
[2023-11-11 07:05] LABS: Hemoglobin A1C 7.7 % (<5.7)
[2023-11-11 07:33] LABS: Glucose Point of Care 235 mg/dl (65-105)
[2023-11-11] MEDS: FUROSEMIDE 20 MG TABLET 60 MG PO (08:17)
[2023-11-11] MEDS: predniSONE 20 MG TABLET 40 MG PO (08:17)
[2023-11-11] MEDS: SACUBITRIL/VALSARTAN 49-51 MG TABLET 1 TABLET PO (08:17)
[2023-11-11] MEDS: BENZONATATE 100 MG CAPSULE 200 MG PO ×2 (08:17→12:36)
[2023-11-11] MEDS: DOXYCYCLINE HYCLATE 100 MG TABLET PO (08:17)
[2023-11-11] MEDS: EMPAGLIFLOZIN 10 MG TABLET PO (08:17)
[2023-11-11] MEDS: buPROPion HCL XL (24 HR) 150 MG TABCR PO (08:18)
[2023-11-11] MEDS: carvediloL 12.5 MG TABLET PO (08:18)
[2023-11-11] MEDS: guaiFENesin 12 HR 600 MG TABCR PO (08:18)
[2023-11-11] MEDS: POTASSIUM CHLORIDE 20 MEQ PACKET (FOR LIQUID) 40 MEQ PO (08:18)
[2023-11-11] MEDS: ACETAMINOPHEN 325 MG TABLET 650 MG PO (08:22)
[2023-11-11] MEDS: INSULIN ASPART (*BKC) 100 UNITS/ML 7 UNITS SUB-Q ×2 (09:12→12:32)
[2023-11-11] MEDS: INSULIN ASPART (*BKC) 100 UNITS/ML SUB-Q ×2 (09:12→12:33)
[2023-11-11] MEDS: INSULIN GLARGINE (*BKC) 100 UNITS/ML 18 UNITS SUB-Q (09:13)
[2023-11-11 11:23] LABS: Glucose Point of Care 332 mg/dl (65-105)
--- NOTE | 2023-11-11 13:19 | PM.DS ---
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: Code(s): I50.40 - Unspecified combined systolic (congestive) and diastolic (congestive) heart failure; I38 - Endocarditis, valve unspecified Status: Acute (4) Chronic anticoagulation: Code(s): Z79.01 - adjunct faculty for medical terminology (current) use of anticoagulants Status: Acute DS: Summary Hospital Course Reason for hospitalization: 68yo female with combined systolic and diastolic congestive heart failure with improved ejection fraction, mitral valve regurgitation status post MitraClip, pAFib on chronic anticoagulation, insulin-dependent type 2 diabetes mellitus, and several other comorbidities who presented to the emergency department for evaluation of shortness of breath. Please see H&P for details Hospital Course: Patient presents with complaints of shortness of breath felt to be related to acute COPD and CHF exacerbation. PFTs in 2021 showed mild obstructive lung disease with no bronchodilator response. Chest x-ray showed clear lung pacheco. She was treated with IV steroids, bronchodilators and oral doxycycline. Patient with systolic and diastolic CHF. CXR clear but BNP 1680 and she did have bilateral pedal edema. She was continued on her oral Lasix but dose was doubled here. Echo showing EF 45-50% which is lower then her baseline, Grade I diastolic dysfunction and moderate MR. Pedal edema resolved and her symptoms improved overall. We decreased her Lasix to 60mg daily. We continued Entresto, Coreg. We added Empagliflozin. The patient's blood glucose was monitored with AccuCheks covering with sliding scale.? Hypoglycemia protocol available as needed.? Hemoglobin A1c was 7.7. Glucose elevated related to steroids and improved as steroids were weaned. For her pAFib: EKG showing sinus rhythm. We continued her Coreg and Xarelto. She has been up ambulating to the bathroom. She feels better and feels ready for discharged. Patient overall did well and was able to be discharged home on 11/11/2023. She asked to have her Albuterol neb treatments refilled. Status at Discharge Cognitive/behavioral status at discharge: Stable Time Spent with Patient Time attestation: Total time spent providing and/or coordinating discharge services: 40 minutes Time spent: Greater than 30 minutes Exam Narrative: AF 97.4 138/64 62 18 97% ra Gen - NARD Chest -scattered expiratory rhonchi. Normal respiratory rate. CV - RRR S1/S2. Abd - Soft, NT/ND, Positive BS Ext - No pedal edema Psych - Nml mood and affect Skin - Warm and dry DS: Data Data Completed and Pending Labs on day of discharge: Labs from last 24 hours 11/11/23 11/11/23 11/11/23 11:07 07:30 05:48 WBC 10.5 H RBC 5.33 Hgb 15.3 H Hct 46.1 MCV 86.5 MCH 28.7 MCHC 33.2 RDW 13.4 Plt Count 211 MPV 11.2 H Immature Gran % (Auto) 0.9 H Neut % (Auto) 80.2 H Lymph % (Auto) 12.8 L Knox % (Auto) 5.9 Eos % (Auto) 0.0 Baso % (Auto) 0.2 Lymph # (Auto) 1.35 Knox # (Auto) 0.6 Eos # (Auto) 0.0 Baso # (Auto) 0.0 Abs Immat Gran (auto) 0.09 H Absolute Neuts (auto) 8.4 H Absolute Nucleated RBC 0.000 Nucleated RBC % 0.0 Sodium 135 L Potassium 3.5 Chloride 99 Carbon Dioxide 32 H Anion Gap 4 BUN 38 H Creatinine 1.00 Estim Creat Clear Calc 57 Estimated GFR 55 L Glucose 244 H POC Capillary Glucose 332 H
--- NOTE | 2023-11-16 09:49 | PC.NURSE ---
Sputum cx growing Klebsiella pneumoniae. Dr. Alas aware.
--- NOTE | 2023-11-16 13:49 | PC.NURSE ---
Sputum resistant to Doxycycline that pt was dc home on. Dr. Alas ordered Levaquin 750 mg by mouth daily for 5 days. Called and spoke with pt. Explained to pt need to stop Doxy and to start Levaquin. Called script into [facility]. Pt. states agreement and understanding.
== END 2023-11-11 16:00 | disposition home or self-care (01) | DRG 191 ==
LOC: ANHED 15:26 → ANH3MEDSUR 17:14
PROVIDERS: Family Medicine; Physician Assistant; Admitting Provider Internal Medicine; Emergency Provider Emergency Medicine; PCP Family Medicine; Visit Provider Internal Medicine
DX: J44.1 Chronic obstructive pulmonary disease with (acute) exacerbation (principal); I50.42 Chronic combined systolic (congestive) and diastolic (congestive) heart failure; J40 Bronchitis, not specified as acute or chronic; I11.0 Hypertensive heart disease with heart failure; D50.9 Iron deficiency anemia, unspecified; E11.42 Type 2 diabetes mellitus with diabetic polyneuropathy; E78.5 Hyperlipidemia, unspecified; E03.9 Hypothyroidism, unspecified; E66.01 Morbid (severe) obesity due to excess calories; F41.9 Anxiety disorder, unspecified; F31.9 Bipolar disorder, unspecified; G47.33 Obstructive sleep apnea (adult) (pediatric); G25.81 Restless legs syndrome; I34.0 Nonrheumatic mitral (valve) insufficiency; I48.0 Paroxysmal atrial fibrillation; I25.10 Atherosclerotic heart disease of native coronary artery without angina pectoris; K21.9 Gastro-esophageal reflux disease without esophagitis; Z68.35 Body mass index [BMI] 35.0-35.9, adult; Z20.822 Contact with and (suspected) exposure to COVID-19; Z86.73 Personal history of transient ischemic attack (TIA), and cerebral infarction without residual deficits; Z90.49 Acquired absence of other specified parts of digestive tract; Z98.84 Bariatric surgery status; Z96.651 Presence of right artificial knee joint; Z88.0 Allergy status to penicillin; Z79.4 Long term (current) use of insulin; Z79.01 Long term (current) use of anticoagulants
CPT/HCPCS: 36415; 71046; 80048; 80053; 80069; 82948; 83036; 83735; 83880; 85025; 87070; 87077; 87185; 87186; 87205; 87637; 93005; 93306; 94640; 96374; 96375; 96376; 97116; 97161; 99285; A9270; G0378; J1815; J1940; J2919; J7512

== ENCOUNTER 2023-11-20 11:59 | Observation (INO) | payer MEDICARE, SELFPAY ==
[2023-11-20] VITALS (25 sets, daily range): BP systolic 88–137; BP diastolic 41–78; PULSE 66–91; RESP 9–20; TEMP 35.7–37; O2SAT 97–100; BMI 35.8
--- NOTE | ~2023-11-20 | XR_ITS ---
XR chest 1V portable DATE: 11/20/2023 12:41 INDICATION: Weakness. History of COPD. TECHNIQUE: Portable upright AP chest on 11/20/2023 at 1231 hours COMPARISON: 11/07/2023 AP and lateral chest FINDINGS: Radiopaque device in the mitral valve area. Heart size is within normal range. Mild aortic unfolding. No hilar or mediastinal enlargement. No pulmonary infiltrate or consolidation, pleural effusion or pulmonary vascular congestion or pneumo thorax. Osteopenia. Surgical clips, right upper quadrant, likely due to cholecystectomy. IMPRESSION: No active cardiopulmonary disease Reviewed, dictated and finalized at location B.
--- NOTE | 2023-11-20 12:05 | ECG_ITS ---
SEE SCANNED COPY FOR CONFIRMED REPORT MTDD
--- NOTE | 2023-11-20 12:11 | ED.WEAKNESS ---
HPI - Weakness General Chief complaint: Weakness Stated complaint: weak and dizzy Time Seen by Provider: 11/20/23 12:07 Source: patient and EMS Mode of arrival: EMS History of Present Illness HPI Narrative: 68 years old white female came from home by ambulance because of dizziness, everything go black when she stand up or walk. Feeling of, started 1-2 days ago. Patient lives with family, got discharged from our facility with diagnosis of COPD exacerbation. History of COPD, congestive heart failure, long-term anticoagulation, Patient denies any fever, chills, nausea, vomiting, diarrhea, constipation, headache or focal neuro deficit. Related Data Home Medications Medication Instructions Recorded Confirmed rivaroxaban 20 mg tablet (Xarelto) 20 mg PO DAILY 04/03/21 11/07/23 acetaminophen 500 mg tablet 500 mg PO Q6H PRN pain 08/21/21 11/07/23 (Tylenol Extra Strength) vibegron 75 mg tablet (Gemtesa) 75 mg PO DAILY 12/31/22 11/07/23 bupropion HCl 150 mg 24 hr tablet, 150 mg PO DAILY 11/06/23 11/07/23 extended release carvedilol 25 mg tablet 12.5 mg PO BID 11/07/23 11/07/23 nystatin 100,000 unit/gram topical 100,000 unit topical TID PRN Rash 11/07/23 11/07/23 powder pregabalin 150 mg capsule 150 mg PO BID 11/07/23 11/07/23 Allergies Allergy/AdvReac Type Severity Reaction Status Date / Time codeine Allergy Intermediate Itching Verified 11/20/23 12:15 diphenhydramine Allergy Unknown JERKY/JUMPY, Verified 11/20/23 12:15 GO CRAZY IN MY SKIN latex Allergy Unknown Hives Verified 11/20/23 12:15 Penicillins Allergy Unknown Hives Verified 11/20/23 12:15 cephalexin AdvReac Unknown Diarrhea Verified 11/20/23 12:15 Review of Systems Review of Systems: All systems reviewed & are unremarkable except as noted in HPI and below PMFSH Past Medical History Medical History Arterial occlusive disease Asthma Patient had asthma as a child/team. Followed by Dr. Landaverde for several years who does not believe she has COPD, asthma, or significant pulmonary parenchymal disease. Bipolar disorder Celiac disease Cervical radiculopathy Chronic anticoagulation On Xarelto for paroxysmal atrial fibrillation/flutter. 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 Echo in January 2023 showed normal LV function with an EF of 60 to 65% and grade 1 diastolic dysfunction. Coronary artery disease Diffuse severe LAD disease with positive IFR and moderate RCA disease noted on cardiac catheterization in 2019. Managed medically. De Quervain's tenosynovitis Diabetic peripheral neuropathy Diverticulosis Eczema Gastroesophageal reflux disease Hyperlipidemia Hypertension Hypothyroidism Insulin dependent type 2 diabetes mellitus Iron deficiency anemia With history of blood transfusion. Irritable bowel syndrome with diarrhea Kidney stones Morbid obesity Status post gastric bypass surgery in September 2002 with a preoperative weight of 280 lb. Obstructive sleep apnea Patient had history of obstructive sleep apnea but repeat sleep study March 2022 demonstrated resolution of sleep apnea. Paroxysmal atrial fibrillation Paroxysmal atrial flutter Peripheral neuropathy Regurgitation of stomach contents Restless leg syndrome Rheumatoid arthritis Severe mitral valve regurgitation Status post MitraClip in 2019. Thyroid disease Patient no longer takes thyroid medicine. TSH 2.11 October 2021 Transient ischemic attack Surgical History Surgical History History of bilateral carpal tunnel release History of bladder surgery Insertion of bladder stimulator for urinary incontinence. History of section History of cholecystectomy History of cystoscopy History of esophagogastroduodenoscopy (EGD) History of gastric bypass (09/2002) History of hyst
[2023-11-20 12:21] LABS: Basophils Percent Auto 0.5 % (0.2-1.2); Eosinophils Absolute Auto 0.1 K/mm3 (0-0.3); Eosinophils Percent Auto 1.3 % (0-4.4); Hematocrit 36.2 % (37.0-47.0); Hemoglobin 11.9 g/dL (12.0-15.0); Immature Granulocyte Percent A 1.3 % (0-0.5); Lymphocytes Absolute Auto 1.11 K/mm3 (0.9-3.2); Lymphocytes Percent Auto 14.8 % (18.3-44.2); Mean Corpuscular HGB Conc 32.9 g/dl (32-36); Mean Corpuscular Hemoglobin 28.9 pg (26-34); Mean Corpuscular Volume 87.9 fl (80-100); Mean Platelet Volume 10.7 fl (7.4-10.4); Monocytes Absolute Auto 0.6 K/mm3 (0.1-0.6); Monocytes Percent Auto 7.4 % (2.6-8.5); Neutrophils Absolute Auto 5.6 K/mm3 (1.3-6.7); Neutrophils Percent Auto 74.7 % (45.5-73.1); Platelet Count Result 198 k/mm3 (150-375); Red Blood Count 4.12 M/mm3 (4.2-5.4); Red Cell Distribution Width 13.6 % (11.5-14.5); White Blood Count 7.5 K/mm3 (4.5-10.0)
[2023-11-20 12:31] LABS: Alanine Aminotransferase 26 U/L (6-35); Albumin Level 3.4 g/dL (3.5-5.1); Alkaline Phosphatase 118 U/L (38-126); Anion Gap 5 mmol/L (4-12); Aspartate Amino Transferase 37 U/L (14-36); Bilirubin,Total 0.5 mg/dL (0.2-1.3); Blood Urea Nitrogen 35 mg/dL (7-17); Calcium 8.4 mg/dL (8.4-10.2); Carbon Dioxide 25 mmol/L (22-30); Chloride 107 mmol/L (98-107); Estimated CRCL calculation 47 ml/min; Estimated Glomerular Filt Rate 45; Glucose 304 mg/dL (65-110); Potassium 4.2 mmol/L (3.4-5.0); Sodium 137 mmol/L (137-145)
[2023-11-20 12:44] LABS: NT Pro B Type Natriuretic Pept 169 pg/mL (19.9-100); Troponin I < 0.012 ng/mL (0.000-0.034)
[2023-11-20 13:01] LABS: Appearance Urine Clear (Clear); Bilirubin Urine Negative (Negative); Blood Urine Negative (Negative); Color Urine Yellow (Yellow); Glucose Urine UA 3+ mg/dL (Negative); Ketones Urine Negative (Negative); Leukocyte Esterase Ur Negative LEU/UL (Negative); Nitrate Urine Negative (Negative); Protein Urine Negative (Negative); Specific Grav Ur 1.019 (1.001-1.035); Urobilinogen Urine 0.2 mg/dL (<2.0); pH Urine 6.5 (5.0-9.0)
[2023-11-20 13:09] LABS: Add Urine Microscopic? NO
[2023-11-20] MEDS: SODIUM CHLORIDE 0.9% IV 1,000 ML 999 ML IV CONT (14:30)
[2023-11-20 14:49] LABS: Lactic Acid Reflex 0.9 mmol/L (0.7-2.0)
[2023-11-20 14:52] LABS: CRP 3.9 mg/dL (<1.0)
[2023-11-20 15:11] LABS: INR 2.4; Prothrombin Time 28.4 Seconds (11.1-14.7)
--- NOTE | 2023-11-20 15:50 | ECG_ITS ---
SEE SCANNED COPY FOR CONFIRMED REPORT MTDD
[2023-11-20 16:23] LABS: Troponin I < 0.012 ng/mL (0.000-0.034)
--- NOTE | 2023-11-20 17:37 | ADMGEN ---
This patient, Charlene Chen, was admitted to Medical Room 344-01. Patient/family oriented to hospital policies and general routines including ID bracelet, bed and alarms, visiting hours, pain management, procedures, bathroom and other care routines, personal items, smoking policy, room service/diet, and visiting hours. Information on how to activate the Rapid Response Team has been discussed. Patient/Family are encouraged to report perceived risks to care and to ask questions if they do not understand what they are told or what they should do.
[2023-11-20 19:23] LABS: Troponin I < 0.012 ng/mL (0.000-0.034)
[2023-11-20] MEDS: SODIUM CHLORIDE 0.9% IV 1,000 ML 125 ML IV CONT (20:17)
[2023-11-20 21:48] LABS: Glucose Point of Care 262 mg/dl (65-105)
[2023-11-21] VITALS (13 sets, daily range): BP systolic 111–140; BP diastolic 49–70; PULSE 72–87; RESP 14–24; TEMP 36.1–36.9; O2SAT 98–100
[2023-11-21] MEDS: SODIUM CHLORIDE 0.9% IV 1,000 ML 125 ML IV CONT (04:35)
[2023-11-21 06:27] LABS: Hematocrit 37.1 % (37.0-47.0); Mean Corpuscular HGB Conc 32.3 g/dl (32-36); Mean Corpuscular Volume 89.6 fl (80-100); Mean Platelet Volume 10.7 fl (7.4-10.4); Platelet Count Result 195 k/mm3 (150-375); Red Blood Count 4.14 M/mm3 (4.2-5.4); Red Cell Distribution Width 13.4 % (11.5-14.5); White Blood Count 7.3 K/mm3 (4.5-10.0)
[2023-11-21 06:43] LABS: Anion Gap 6 mmol/L (4-12); Blood Urea Nitrogen 20 mg/dL (7-17); Calcium 8.3 mg/dL (8.4-10.2); Carbon Dioxide 23 mmol/L (22-30); Chloride 109 mmol/L (98-107); Estimated CRCL calculation 57 ml/min; Estimated Glomerular Filt Rate 55; Glucose 180 mg/dL (65-110); Potassium 4.3 mmol/L (3.4-5.0); Sodium 138 mmol/L (137-145)
[2023-11-21 08:22] LABS: Glucose Point of Care 184 mg/dl (65-105)
[2023-11-21] MEDS: levoFLOXacin 750 MG TABLET PO (11:24)
[2023-11-21] MEDS: carvediloL 12.5 MG TABLET PO ×2 (11:24→21:10)
[2023-11-21] MEDS: EMPAGLIFLOZIN 10 MG TABLET PO (11:24)
[2023-11-21] MEDS: PANTOPRAZOLE SODIUM IV 40 MG VIAL IV PUSH (11:25)
[2023-11-21] MEDS: buPROPion HCL XL (24 HR) 150 MG TABCR PO (11:25)
--- NOTE | 2023-11-21 11:26 | PM.IMHP ---
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 She was recently discharged on 11-10 after hospitalization for CHF and COPD exacerbation. She was treated with IV steroids, bronchodilators, and oral doxycycline. Sputum culture was positive for Klebsiella and Haemophilus influenza. She was contacted by the hospitalist office at home on 11/15 and her antibiotic was changed to Levaquin for 5 days. She states she still had 2 days of antibiotics to take. For her CHF her Lasix was increased to 60 mg a day and she was started on Jardiance. Since returning home she has had progressive weakness and increased fatigue. She also complains of having low blood pressures and dizziness and near fainting when standing. She is also having some RUQ abdominal discomfort which she attributes to GERD. She is unsure if she was receiving all of her medications correctly at home as her son has been filling her pill bags and her reported to her that some of her medications were not given correctly. She also reports only urinating approximately 1 time a day but states that her urine has been clear. She still has a strong cough and notices dizziness when coughing. She denies increased dyspnea or increased sputum production. She states she still has a good appetite and her last bowel movement was yesterday. Of note, she had similar symptoms to this that she experienced last year. She was admitted here for syncopal workup which was negative. She was diagnosed with narcolepsy and asked to follow with Neurology. Upon arrival to the ER her blood pressure was 109/61, heart rate 77. CBC is unremarkable, her BMP shows creatinine 1.20, BUN 35, glucose 304, BNP 169, CRP 3.9, and troponin negative. UA was negative for infection. Chest x-ray on admission shows no active cardiopulmonary disease. Recent echo from 11/08 shows LV EF estimate 45-50%, grade 1 diastolic dysfunction, and moderate mitral valve regurgitation. She is being admitted to the hospitalist's service for syncopal workup and observation. Review of Systems Review of Systems: All systems reviewed & are unremarkable except as noted in HPI and below PMFSH Past Medical History Medical History Arterial occlusive disease Asthma Patient had asthma as a child/team. Followed by Dr. Landaverde for several years who does not believe she has COPD, asthma, or significant pulmonary parenchymal disease. Bipolar disorder Celiac disease Cervical radiculopathy Chronic anticoagulation On Xarelto for paroxysmal atrial fibrillation/flutter. 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 Echo in January 2023 showed normal LV function with an EF of 60 to 65% and grade 1 diastolic dysfunction. Coronary artery disease Diffuse severe LAD disease with positive IFR and moderate RCA disease noted on cardiac catheterization in 2019. Managed medically. De Quervain's tenosynovitis Diabetic peripheral neuropathy Diverticulosis Eczema Gastroesophageal reflux disease Hyperlipidemia Hypertension Hypothyroidism Insulin dependent type 2 diabetes mellitus Iron deficiency anemia With history of blood transfusion. Irritable bowel syndrome with diarrhea Kidney stones Morbid obesity Status post gastric bypass surgery in September 2002 with a preoperative weight of 280 lb. Obstructive sleep apnea Patient had history of obstructive sleep apnea but repeat sleep study March 2022 demonstrated resolution of sleep apnea. Paroxysmal atrial fibrillation Paroxysmal
[2023-11-21] MEDS: TOLNAFTATE 1% POWDER 45 GM BTL 1 APPLIC TOPICAL (11:40)
[2023-11-21 12:37] LABS: Glucose Point of Care 164 mg/dl (65-105)
[2023-11-21] MEDS: INSULIN ASPART (*BKC) 100 UNITS/ML 7 UNITS SUB-Q ×2 (12:46→17:38)
[2023-11-21 17:05] LABS: Glucose Point of Care 174 mg/dl (65-105)
[2023-11-21] MEDS: INSULIN GLARGINE (*BKC) 100 UNITS/ML 15 UNITS SUB-Q (21:10)
[2023-11-21] MEDS: guaiFENesin 12 HR 600 MG TABCR PO (21:10)
[2023-11-21] MEDS: SACUBITRIL/VALSARTAN 49-51 MG TABLET 1 TABLET PO (21:10)
[2023-11-21 21:11] LABS: Glucose Point of Care 141 mg/dl (65-105)
[2023-11-22] VITALS: PULSE 74
[2023-11-22 04:00] VITALS: PULSE 71
[2023-11-22 06:00] VITALS: BP 125/55; PULSE 72; RESP 20; TEMP 36.4; O2SAT 100
[2023-11-22 06:04] LABS: Basophils Percent Auto 0.5 % (0.2-1.2); Eosinophils Absolute Auto 0.2 K/mm3 (0-0.3); Eosinophils Percent Auto 3.2 % (0-4.4); Hemoglobin 11.2 g/dL (12.0-15.0); Immature Granulocyte Absolute 0.11 K/mm3 (0.00-0.031); Immature Granulocyte Percent A 1.8 % (0-0.5); Lymphocytes Absolute Auto 1.53 K/mm3 (0.9-3.2); Lymphocytes Percent Auto 24.8 % (18.3-44.2); Mean Corpuscular Hemoglobin 28.8 pg (26-34); Mean Platelet Volume 10.5 fl (7.4-10.4); Monocytes Absolute Auto 0.5 K/mm3 (0.1-0.6); Monocytes Percent Auto 8.3 % (2.6-8.5); Neutrophils Absolute Auto 3.8 K/mm3 (1.3-6.7); Neutrophils Percent Auto 61.4 % (45.5-73.1); Platelet Count Result 159 k/mm3 (150-375); Red Blood Count 3.89 M/mm3 (4.2-5.4); Red Cell Distribution Width 13.2 % (11.5-14.5); White Blood Count 6.2 K/mm3 (4.5-10.0)
[2023-11-22 06:38] LABS: Alanine Aminotransferase 37 U/L (6-35); Alkaline Phosphatase 135 U/L (38-126); Anion Gap 3 mmol/L (4-12); Aspartate Amino Transferase 41 U/L (14-36); Bilirubin,Total 0.5 mg/dL (0.2-1.3); Blood Urea Nitrogen 17 mg/dL (7-17); Calcium 8.5 mg/dL (8.4-10.2); Carbon Dioxide 24 mmol/L (22-30); Chloride 110 mmol/L (98-107); Estimated CRCL calculation 57 ml/min; Estimated Glomerular Filt Rate 55; Glucose 145 mg/dL (65-110); Magnesium 2.4 mg/dL (1.6-2.3); Sodium 137 mmol/L (137-145)
[2023-11-22 08:03] LABS: Glucose Point of Care 148 mg/dl (65-105)
[2023-11-22] MEDS: SACUBITRIL/VALSARTAN 49-51 MG TABLET 1 TABLET PO (09:06)
[2023-11-22] MEDS: EMPAGLIFLOZIN 10 MG TABLET PO (09:06)
[2023-11-22] MEDS: levoFLOXacin 750 MG TABLET PO (09:06)
[2023-11-22 09:07] VITALS: PULSE 86
[2023-11-22] MEDS: guaiFENesin 12 HR 600 MG TABCR PO (09:07)
[2023-11-22] MEDS: buPROPion HCL XL (24 HR) 150 MG TABCR PO (09:07)
[2023-11-22] MEDS: carvediloL 12.5 MG TABLET PO (09:07)
[2023-11-22] MEDS: INSULIN ASPART (*BKC) 100 UNITS/ML 7 UNITS SUB-Q ×2 (09:08→12:13)
[2023-11-22] MEDS: PANTOPRAZOLE 40 MG TABLET PO (09:12)
[2023-11-22] MEDS: FUROSEMIDE 40 MG TABLET PO (09:12)
[2023-11-22 12:05] LABS: Glucose Point of Care 222 mg/dl (65-105)
[2023-11-22] MEDS: INSULIN ASPART (*BKC) 100 UNITS/ML SUB-Q (12:14)
--- NOTE | 2023-11-22 12:24 | PM.DS ---
DS: Admitting Diagnosis Discharge Date 11/21 Admitting Diagnosis near fainting, dizziness DS: Discharge Diagnosis Discharge Diagnosis (1) Dizziness: Code(s): R42 - Dizziness and giddiness Status: Acute Assessment and Plan: Patient reports dizziness when standing and near syncope. Patient reports low blood pressure in the mornings at home after taking am medications with improvement in BP in the evening recently hospitalized for CHF exacerbation with increase in lasix dose from 40 mg to 60 mg daily Also was started on Jardiance Reports low urine output at home Orthostatic VS positive on arrival in the ED with SBP 116 mm hg and decreasing to 88 mm hg with standing. Orthostatic blood pressure negative during today's exam after IVF hydration. L: 132/63, HR 95; Sit: 131/73, HR 88; Standin/72, HR 104 Total intake 2740 ml, Output 1700 ml, net + 1040 ml Stopping IVF now as she is taking good PO (2) ANDREA (acute kidney injury): Code(s): N17.9 - Acute kidney failure, unspecified Status: Acute Assessment and Plan: Cr mildly elevated on admission Cr 1.2 on admission IVF received and since stopped Cr 1.0 today (3) Insulin dependent type 2 diabetes mellitus: Code(s): E11.9 - Type 2 diabetes mellitus without complications; Z79.4 - senior living (current) use of insulin Status: Acute Assessment and Plan: Hgb A1c 7.7%, on Lantus 18 units, lispro 7 units TID with meals, and jardiance Novolog 7 units TID with meals SSI moderate dose Accu checks ac/hs, hypoglycemia protocol Lantus 15 units (4) COPD (chronic obstructive pulmonary disease): Code(s): J44.9 - Chronic obstructive pulmonary disease, unspecified Status: Acute Assessment and Plan: Stable currently. Not on oxygen. Denies dyspnea, denies increase sputum production. (5) CHF (congestive heart failure): Qualifiers: Heart failure chronicity: chronic Heart failure type: combined systolic and diastolic Qualified Code(s): I50.42 - Chronic combined systolic (congestive) and diastolic (congestive) heart failure Code(s): I50.9 - Heart failure, unspecified Status: Acute Assessment and Plan: chronic combined diastolic and systolic HF with preserved EF Recent ECHO from 11/09/23 reviewed BNP 167 on admission Appears euvolemic Chest XR clear (6) History of mitral valve repair: Code(s): Z98.890 - Other specified postprocedural states Status: Acute Assessment and Plan: Mitral valve repair with clip. Hx of atrial fibrillation - on anticoagulation (7) Generalized weakness: Code(s): R53.1 - Weakness Status: Acute Assessment and Plan: Progressive weakness over the last couple of weeks - PT consulted (8) Bipolar disorder: Qualifiers: Active/Remission status: remission status unspecified Qualified Code(s): F31.9 - Bipolar disorder, unspecified Code(s): F31.9 - Bipolar disorder, unspecified Status: Acute Assessment and Plan: Stable. On Wellbutrin. Restarted DS: Summary Hospital Course Reason for hospitalization: dehydration, near syncope Hospital Course: This is a 68-year-old female with a past medical history significant for combined systolic and diastolic congestive heart failure with preserved EF, mitral valve regurgitation status post mitral clip, bipolar, proximal AFib and flutter on Xarelto, diabetes, and GERD.? She was recently discharged on 11-10 after hospitalization for CHF and COPD exacerbation.? She was treated with IV steroids, bronchodilators, and oral doxycycline.? Sputum culture was positive for Klebsiella and Haemophilus influenza.? She was contacted by the hospitalist office at home on 11/15 and her antibiotic was changed to Levaquin for 5 days.? She states she still had 2 days of antibiotics to take.? For her CHF her Lasix was increased to 60 mg a day and she was started
== END 2023-11-22 14:00 | disposition home or self-care (01) ==
LOC: ANHED 16:35 → ANH3MED 17:13
PROVIDERS: Emergency Medicine; Internal Medicine; Nurse Practitioner Acute Care; Admitting Provider General Practice; Emergency Provider Emergency Medicine; PCP Family Medicine; Visit Provider General Practice
DX: N17.9 Acute kidney failure, unspecified (principal); R42 Dizziness and giddiness; R53.1 Weakness; J44.9 Chronic obstructive pulmonary disease, unspecified; I48.0 Paroxysmal atrial fibrillation; K90.0 Celiac disease; E78.5 Hyperlipidemia, unspecified; I11.0 Hypertensive heart disease with heart failure; I50.40 Unspecified combined systolic (congestive) and diastolic (congestive) heart failure; D50.9 Iron deficiency anemia, unspecified; K58.0 Irritable bowel syndrome with diarrhea; I25.10 Atherosclerotic heart disease of native coronary artery without angina pectoris; E11.42 Type 2 diabetes mellitus with diabetic polyneuropathy; I87.8 Other specified disorders of veins; K21.9 Gastro-esophageal reflux disease without esophagitis; F31.9 Bipolar disorder, unspecified; I48.92 Unspecified atrial flutter; G47.33 Obstructive sleep apnea (adult) (pediatric); M06.9 Rheumatoid arthritis, unspecified; G25.81 Restless legs syndrome; Z86.73 Personal history of transient ischemic attack (TIA), and cerebral infarction without residual deficits; Z98.84 Bariatric surgery status; Z79.01 Long term (current) use of anticoagulants; Z87.891 Personal history of nicotine dependence; Z79.51 Long term (current) use of inhaled steroids; Z79.4 Long term (current) use of insulin; Z79.84 Long term (current) use of oral hypoglycemic drugs
CPT/HCPCS: 36415; 71045; 80048; 80053; 81003; 82948; 83605; 83735; 83880; 84484; 85025; 85027; 85610; 85730; 86140; 87040; 93005; 96361; 96374; 97116; 97161; 99285; A9270; C9113; G0378; J1815; J7030

== ENCOUNTER 2023-12-07 10:36 | Emergency (ER) | payer MEDICARE, SELFPAY ==
[2023-12-07 10:54] VITALS: BP 142/89; PULSE 92; RESP 18; TEMP 36.8; O2SAT 99
--- NOTE | 2023-12-07 10:57 | ED.URI ---
HPI - URI/Sore Throat General Chief Complaint: Upper Respiratory Infection Stated Complaint: Cough Time Seen by Provider: 12/07/23 10:57 Source: patient Mode of arrival: ambulatory Limitations: no limitations History of Present Illness HPI Narrative: 68 yo F with hx of COPD, CHF presents with c/o cough but states it's improving. Pt has custody of her grandchildren and has had multiple upper respiratory infections over the past several weeks. Was discharged from hospital November 21 after dehydration. Patient here today because she states she is having vaginal itching and discharge. Is concerned for a yeast infection. States this has happened in the past after taking multiple antibiotics and patient recently on multiple antibiotics due to pneumonia, COPD exacerbation. Was not able to get in with her primary care physician today. All systems reviewed and negative except as noted above. Related Data Home Medications Medication Instructions Recorded Confirmed rivaroxaban 20 mg tablet (Xarelto) 20 mg PO DAILY 04/03/21 12/07/23 acetaminophen 500 mg tablet 500 mg PO Q6H PRN pain 08/21/21 12/07/23 (Tylenol Extra Strength) vibegron 75 mg tablet (Gemtesa) 75 mg PO DAILY 12/31/22 12/07/23 bupropion HCl 150 mg 24 hr tablet, 150 mg PO DAILY 11/06/23 12/07/23 extended release carvedilol 25 mg tablet 12.5 mg PO BID 11/07/23 12/07/23 nystatin 100,000 unit/gram topical 100,000 unit topical TID PRN Rash 11/07/23 12/07/23 powder pregabalin 150 mg capsule 150 mg PO BID 11/07/23 12/07/23 Allergies Allergy/AdvReac Type Severity Reaction Status Date / Time codeine Allergy Intermediate Itching Verified 11/20/23 12:15 diphenhydramine Allergy Unknown JERKY/JUMPY, Verified 11/20/23 12:15 GO CRAZY IN MY SKIN latex Allergy Unknown Hives Verified 11/20/23 12:15 Penicillins Allergy Unknown Hives Verified 11/20/23 12:15 cephalexin AdvReac Unknown Diarrhea Verified 11/20/23 12:15 Review of Systems Review of Systems: CONSTITUTIONAL: Denies fever, chills, or sweats. EYES: Denies visual changes, redness, or discharge. ENT: Denies rhinorrhea, congestion, sore throat, or otalgia. CARDIOVASCULAR: Denies chest pain, palpitations, or edema. RESPIRATORY: Reports cough and dyspnea with exertion. GASTROINTESTINAL: Denies abdominal pain, nausea, vomiting, or diarrhea. GENITOURINARY: Denies dysuria or hematuria. Reports vaginal itching and discharge. SKIN: Denies rash or itching. MUSCULOSKELETAL: Denies back pain, joint pain, or myalgia. NEUROLOGIC: Denies headache, numbness, or weakness. PSYCHIATRIC: Denies anxiety or depression. All other systems reviewed are negative, except as documented in HPI. [facility] Past Medical History Medical History Arterial occlusive disease Asthma Patient had asthma as a child/team. Followed by Dr. Landaverde for several years who does not believe she has COPD, asthma, or significant pulmonary parenchymal disease. Bipolar disorder Celiac disease Cervical radiculopathy Chronic anticoagulation On Xarelto for paroxysmal atrial fibrillation/flutter. 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 Echo in January 2023 showed normal LV function with an EF of 60 to 65% and grade 1 diastolic dysfunction. Coronary artery disease Diffuse severe LAD disease with positive IFR and moderate RCA disease noted on cardiac catheterization in 2019. Managed medically. De Quervain's tenosynovitis Diabetic peripheral neuropathy Diverticulosis Eczema Gastroesophageal reflux disease Hyperlipidemia Hypertension Hypothyroidism Insulin dependent type 2 diabetes mellitus Iron deficiency anemia With history of blood transfusion. Irritable bowel syndrome with diarrhea Kidney stones Morbid obesity Status post gastric bypass surgery in September 2002 with a preoperative weight of 280 lb.
== END 2023-12-07 11:56 | disposition home or self-care (01) ==
PROVIDERS: Emergency Provider Nurse Practitioner Family
DX: J06.9 Acute upper respiratory infection, unspecified (principal); B37.31 Acute candidiasis of vulva and vagina; J44.9 Chronic obstructive pulmonary disease, unspecified; Z87.891 Personal history of nicotine dependence; K90.0 Celiac disease; K21.9 Gastro-esophageal reflux disease without esophagitis; E78.5 Hyperlipidemia, unspecified; E03.9 Hypothyroidism, unspecified; E66.01 Morbid (severe) obesity due to excess calories; Z68.33 Body mass index [BMI] 33.0-33.9, adult; Z98.84 Bariatric surgery status; I48.0 Paroxysmal atrial fibrillation; G25.81 Restless legs syndrome; M06.9 Rheumatoid arthritis, unspecified; I11.0 Hypertensive heart disease with heart failure; I50.40 Unspecified combined systolic (congestive) and diastolic (congestive) heart failure; E11.42 Type 2 diabetes mellitus with diabetic polyneuropathy; Z79.01 Long term (current) use of anticoagulants; Z86.73 Personal history of transient ischemic attack (TIA), and cerebral infarction without residual deficits; Z96.651 Presence of right artificial knee joint
CPT/HCPCS: 99213; G0463

== ENCOUNTER 2024-08-26 10:47 | Outpatient (CLI) | payer MEDICARE, SELFPAY ==
--- NOTE | ~2024-08-26 | XR_ITS ---
XR abdomen/kub 1V 08/26/2024 11:16 Indication: Renal stone Procedure: KUB Comparison: Comparison to multiple prior studies sequentially, with oldest reviewed study dated 12/2017. Findings: Nonspecific bowel gas pattern. Moderate gas in fecal material throughout the colon limiting evaluation for renal stones. Transsacral stimulator lead identified. There are cholecystectomy clips . Impression: 1: Nonspecific bowel gas pattern. Reviewed, dictated and finalized at location L. DRIVER Impression: 1: Nonspecific bowel gas pattern.
--- NOTE | ~2024-08-26 | CT_ITS ---
Non-contrast CT scan of the Abdomen and Pelvis Clinical indication: Right renal stone Technique: 2.5 mm axial scans were obtained through the abdomen and pelvis without intravenous or or al contrast. Dose reduction technique was used on this scan by utilizing automated exposure control a nd iterative reconstruction technique. The dose-length product (DLP) was 322.39 mGy-cm. COMPARISON: 03/17/2023 Findings: Images through the lung bases reveal 5 mm right middle lobe pulmonary nodule. Probable punctate nonobstructing right renal stone. Left kidney unremarkable. No ureteral stone or hy dronephrosis on either side. The liver, spleen, pancreas, and adrenals appear normal. Cholecystectomy clips are present. There are atherosclerotic calcifications of the aorta. . There is no evidence of bowel obstruction. Images through the pelvis were performed. There is no evidence of ascites or lymphadenopathy. Urinary bladder unremarkable. No pelvic mass seen. Impression: Punctate nonobstructing right renal stone. 5 mm right middle lobe pulmonary nodule, most likely benign. Consider 12 month follow-up CT for a hig h-risk patient. Reviewed, dictated and finalized at [facility]. EXAMINER Impression: Punctate nonobstructing right renal stone. 5 mm right middle lobe pulmonary nodule, most likely benign. Consider 12 month follow-up CT for a high-risk patient.
--- OUTSIDE RECORDS SUMMARY | 2024-08-26 11:24 | XMS_ITS | Referral Summary ---
Author Organization [facility] [address] [facility] [address] Address [address] [place] [address] Care Team Providers Care Reservations Clerk Name Role Phone Marek Treviño DO Primary Care Provider [phone] Shane Alaniz MD Unavailable [phone] Deonte Martini MD PhD Unavailable [phone] Tone Mishra MD Unavailable [phone] Encounters Date Type Department Care Team Description 07/19/2024 3:15 PM COFFERDAM CONSTRUCTION SUPERVISOR Office Visit [facility] Cardiology [address] [place] [address] Tone Mishra MD Typical atrial flutter (CMS/HCC) (HCC) (Primary Dx); Cardiomyopathy, idiopathic (HCC); Chronic systolic CHF (congestive heart failure) (CMS/HCC) (HCC); PAF (paroxysmal atrial fibrillation) (CMS/HCC) (HCC); Need for lipid screening from Last 3 Months Allergies Active Allergy Reactions Criticality Noted Date Comments Codeine Hives Medium 08/04/2012 Diphenhydramine Palpitations Low 12/13/2014 Latex Rash Medium 12/13/2014 Opioids - Morphine Analogues Nausea & Vomiting Low 01/25/2015 Penicillins Rash Medium 12/13/2014 Acetaminophen-Codeine Unknown 09/04/2020 Medications rOPINIRole (REQUIP) 3 mg tablet Take 3 mg by mouth nightly 1 7 Active SYMBICORT 160-4.5 mcg/actuation inhaler Inhale 2 puffs 2 (two) times a day 11 06/03/201 9 Active FUROSEMIDE ORALIndications: Edema Take 20 mg by mouth 2 (two) times a day 0 Active insulin lispro (HumaLOG, ADMELOG) 100 unit/mL injection Inject under the skin 3 (three) times a day before meals Active pregabalin (LYRICA) 150 mg capsuleIndicatio ns:Restless Legs Syndrome Take 150 mg by mouth 2 (two) times a day Active cyclobenzaprine (FLEXERIL) 10 mg tablet Take 10 mg by mouth 2 (two) times a day as needed 1 Active HYDROcodone-acet aminophen (NORCO) 5-325 mg per tablet Take 1 tablet by mouth every 6 (six) hours as needed 1 Active fluticasone propionate (FLONASE) 50 mcg/actuation nasal spray 2 sprays daily 1 Active albuterol HFA (PROVENTIL HFA,VENTOLIN HFA,PROAIR HFA) 90 mcg/actuation inhaler INHALE 2 PUFFS BY MOUTH EVERY 4 6 HOURS NEEDED FOR SHORTNESS OF BREATH 1 Active albuterol 2.5 mg /3 mL (0.083 %) nebulizer solution as needed 1 Active ferrous sulfate 325 mg (65 mg of elemental iron) tabletIndication s:Iron Deficiency Anemia Take 65 mg of elemental iron by mouth 2 (two) times a day Active TRESIBA 100 unit/mL (3 mL) pen for injection 1 Active Ozempic 0.25 mg or 0.5 mg(2 mg/1.5 mL) pen injector injection 1 Active atorvastatin (LIPITOR) 40 mg tablet 1 Active nitroglycerin (NITROSTAT) 0.4 mg SL tabletIndication s:acute episode of anginal pain Place 1 tablet (0.4 mg total) under the tongue every 5 (five) minutes as needed for chest pain May repeat dose q 5 min, up to 3 doses total 30 tablet 1 Active guaiFENesin-code ine (GUAITUSS AC) liquid 100-10 mg/5 mL 1 Active melatonin 5 mg tablet 1 Active isosorbide mononitrate ER (IMDUR) 30 mg 24 hr tabletIndication s:prevention of anginal pain in coronary artery disease Take 1 tablet (30 mg total) by mouth daily 30 tablet 3 2 Active Additional Information Patient not taking.Reported on 07/19/2024 sertraline (ZOLOFT) 100 mg tablet TAKE 1&1/2 TABLETS BY MOUTH EVERY DAY 2 Active doxycycline 100 mg tablet Take 100 mg by mouth every 12 (twelve) hours 3 Active nystatin powder APPLY TOPICALLY 3 TIMES A DAY 3 Active buPROPion XL (WELLBUTRIN XL) 150 mg 24 hr tablet Take 1 tablet (150 mg total) by mouth every morning 2 Active Entresto 49-51 mg tablet TAKE 1 TABLET BY MOUTH TWICE A DAY 60 tablet 11 3 Active rivaroxaban (Xarelto) 20 mg tabletIndication s:Atypical atrial flutter (CMS/HCC) (HCC) TAKE 1 TABLET BY MOUTH EVERY DAY 90 tablet 3 Active Additional Information Patient not taking.Reported on 07/19/2024 carvediloL (COREG) 25 mg tablet TAKE 0.5 TABLET BY MOUTH 2 TIMES A DAY WITH MEALS 90 tablet 3 Active vibegron (GEMTESA ORAL) Take by mouth [facility] Hospital, Clinic, or Other Facility Administered Medication Ordered Dose Route Frequency Start Date End Date Status perflutren protein-a (OPTISON) 3 mL in sodium chloride 0.9% 8 mL syringe 1 - 8 mL IV Once in imaging 05/21/2021 Active Active Problems Problem Noted Date Diagnosed Date Venous insufficiency 08/29/2022 Assessment & Plan (08/29/2022 11:59 AM [employer]DAM CONSTRUCTION SUPERVISOR): Bilateral lower extremity edema with lipodermatosclerosis. Continue compression therapy. Lymphedema pump evaluation as above. Lymphedema 08/29/2022 Assessment & Plan (08/29/2022 11:59 AM COFFERDAM CONSTRUCTION SUPERVISOR): Patient has history of Lymphedema (I89.0). The patient has tried elevation, exercise, and compression without significant improvements and skin discoloration. Patient would benefit from a Lymphedema pump to be ordered through [employer] to help manage patient condition. Chronic systolic CHF (congestive heart failure) (CMS/HCC) 06/14/2020 S/P mitral valve clip implantation 06/14/2020 Dizziness 06/14/2020 Mitral valve insufficiency 05/08/2020 Overview (05/08/2020): Added automatically from request for surgery [id number] Assessment & Plan (05/23/2020 12:33 PM COFFERDAM CONSTRUCTION SUPERVISOR): NYHA class IIIb symptom. TTE (03/2020, mean gradient 5mmHg) and RAS (04/2020, mod-severe MR pressure gradient 3mmHg). R/LHC performed 03/2020) - s/p Mitraclip procedure on 05/23/20 with 1 clip -asa, resume home Xarelto tomorrow -CXR and TTE POD1 Cardiomyopathy, idiopathic 07/29/2017 Morbid obesity with BMI of 40.0-44.9, adult 06/05 Assessment & Plan (05/23/2020 12:33 PM COFFERDAM CONSTRUCTION SUPERVISOR): BMI 41.89 -PT/OT -fall precautions -bariatric equipment if needed at discharge DM (diabetes mellitus) 03/12/2017 Assessment & Plan (05/23/2020 12:39 PM COFFERDAM CONSTRUCTION SUPERVISOR): - Reduce Lantus to 20 units for tonight only as NPO p MN - Humalog 8 units TID AC - MDSSI + qHS + 2am - Carb consistent diet Renal colic Kidney stone PAF (paroxysmal atrial fibrillation) ([facility]) Assessment & Plan (08/29/2022 11:59 AM COFFERDAM CONSTRUCTION SUPERVISOR): Stable continue Xarelto 20 mg. DVT (deep venous thrombosis) ([facility]) Atrial flutter ([facility]) Assessment & Plan (05/23/2020 12:29 PM COFFERDAM CONSTRUCTION SUPERVISOR): Resume home xarelto tomorrow (05/24) - continue asa - Telemetry Exertional chest pain Peripheral artery disease Chronic bronchitis Assessment & Plan (05/23/2020 12:32 PM COFFERDAM CONSTRUCTION SUPERVISOR): Continue home inhalers Bipolar 1 disorder, depressed ([facility]) Heart failure Assessment & Plan (05/23/2020 12:32 PM CO[employer]DAM CONSTRUCTION SUPERVISOR): LVEF 42% w/ GIIDD. on TAVR TTE (03/2020). - continue regimen of carvedilol, entresto - 40 IV lasix tonight - strict I/Os, daily weights, q12 BMP Preop cardiovascular exam Dyspnea Resolved Problems Problem Noted Date Diagnosed Date Resolved Date Heart attack 06/23/2017 Immunizations Immunization Administration Dates Next Due Influenza, Quadrivalent, Hig h Dose, Preservative Free, Intrr 05/24/2020 Social History Tobacco Use Types Packs/Day Years Used Date Smoking Tobacco: Never Smokeless Tobacco: Never Tobacco Cessation:Counseling Given: Not Answered Alcohol Use Standard Drinks/Week Comments No 0 (1 standard drink = 0.6 oz pur e alcohol) Comments No Sex and Gender Information Value Date Recorded Sex Assigned at Not on file Legal Sex Female 3:33 AM COFFERDAM CONSTRUCTION SUPERVISOR Gender Identity Not on file Sexual Orientation Not on file Last Filed Vital Signs Vital Sign Reading Time Taken Comments Blood Pressure 112/70 07/19/2024 3:09 PM [employer]DAM CONSTRUCTION SUPERVISOR Pulse 82 07/19/2024 3:09 PM [employer]DAM CONSTRUCTION SUPERVISOR Temperature 36.1 C (96.9 F) 06/26/2020 3:00 PM [employer]AM CONSTRUCTION SUPERVISOR Respiratory Rate 18 06/15/2020 4:15 PM [employer]DAM CONSTRUCTION SUPERVISOR Oxygen Saturation 97% 07/19/2024 3:09 PM [employer]DAM CONSTRUCTION SUPERVISOR Inhaled Oxygen Concentration - - Weight 96.6 kg (213 lb) 07/19/2024 3:09 PM [employer]DAM CONSTRUCTION SUPERVISOR Height 167.6 cm (5' 6 ) 07/19/2024 3:09 PM [employer]DAM CONSTRUCTION SUPERVISOR Body Mass Index 34.38 07/19/2024 3:09 PM COFFERDAM CONSTRUCTION SUPERVISOR Plan of Treatment Not on file Medical Devices Implanted Type Area Tapeman Device Identifier Shelf Expiration Date Model / Serial / Lot [employer] [id number] Mitraclip G4 Clip Delivery System Ntw - [id number] Implanted:Qty : 1 on 05/23/2020 by Deonte Martini MD PhD at [facility] Clip N/A: Mitral Valve [employer] 09/28/2020 [id number] / / [id number] [employer] [id number] Mitraclip G4 Implant System - [id number] Implanted:Qty : 1 on 05/23/2020 by Deonte Martini MD PhD at [facility] [employer] [id number] 06/04/2030 [id number] 100 / / VIRTUAL ITEM Procedures Procedure Name Priority Date/Time Associated Diagnosis Comments POCT LIPID PANEL Routine 07/19/2024 4:05 PM [employer]FFERDAM CONSTRUCTION SUPERVISOR Need for lipid screening EGFR Routine 05/21/2021 3:16 PM COFFERDAM CONSTRUCTION SUPERVISOR S/P mitral valve clip implantation POCT HEMOGLOBIN A1C Routine 05/14/2020 9 :25 AM COFFERDAM CONSTRUCTION SUPERVISOR from Last 3 Months or Most Recently Relevant to Health Maintenance Results * POCT lipid panel (07/19/2024 4:05 PM COFFERDAM CONSTRUCTION SUPERVISOR) Cholesterol, POC 167 mg/dL Comment:GLU = 209 HDL, POC 58 mg/dL Triglycerides, POC 82 mg/dL LDL Cholesterol POC 93 mg/dL Chol/HDL Ratio, POC 1.6 Non-HDL Cholesterol, POC 109 mg/dL Cholesterol Total, POC 167 mg/dL Capillary blood 07/19/2024 4 :05 PM [employer]FFERDAM CONSTRUCTION SUPERVISOR us Tone Mishra MD POINT OF CARE TEST ORDER JOSE Final Result * eGFR (05/21/2021 3:16 PM COFFERDAM CONSTRUCTION SUPERVISOR) eGFR 61 mL/min/1.7 3 m2 [facility] Comment: Interpretive Data Reference Interval Normal >/= 90 mL/min/1.73m2 Mildly decreased* 60 - 89 mL/min/1.73m2 Mildly to moderately decreased 45 - 59 mL/min/1.73m2 Moderately to severely decreased 30 - 44 mL/min/1.73m2 Severely decreased 15 - 29 mL/min/1.73m2 Kidney Failure < 15 mL/min/1.73m2 *Relative to young adult level Estimated glomerular filtration rate is determined by the CKD-EPI equation recommended by the National Kidney Foundation (KDIGO 2012 Clinical Practice Guideline for the Evaluation and Management of Chronic Kidney Disease. Kidney Intnl Suppl Jul 2012;3:1). The CKD-EPI equation should not be used for patients with unstable renal function and has not been validated in children and those over 70. Current interpretive data was last reviewed 2020 Blood 05/21/2021 3:16 PM COFFERDAM CONSTRUCTION SUPERVISOR 05/21/2021 4:03 PM COFFERDAM CONSTRUCTION SUPERVISOR Sydnie Rodriguez BACKEND DEVELOPER LAB BLOOD ORDERABLES Final R esult [facility] [address] [facility] Department [place] [address] * (ABNORMAL) POCT hemoglobin A1c (05/14/2020 9:25 AM COFFERDAM CONSTRUCTION SUPERVISOR) Hgb A1C, POC 8.5(H) 4.0 - 6.0 % [facility] Est Average Gluc POC 197 mg/dL [facility] Comment: The ADA recommends reporting an estimated Average Glucose (eAG) with all Hemoglobin A1c results using the equation derived from a study of 507 normal and diabetic adults. Minority populations were underrepresented and children were not included. (Diabetes Care 31:4109-1681, 2008). The eAG is not equivalent to a fasting glucose. Blood specimen (specimen) 05/14/2020 9:25 AM COFFERDAM CONSTRUCTION SUPERVISOR 05/14/2020 9:25 AM COFFERDAM CONSTRUCTION SUPERVISOR Deonte Martini MD PhD POINT OF CARE TEST ORDERAB LES Final Result [facility] Department [place] [address] from Last 3 Months or Most Recently Relevant to Health Maintenance Insurance MEDICARE SOLUTIONS [employer] SIG [id number] MEDICARE SOLUTIONS MEDICARE SOLUTIONS [facility] MEDIC[facility] Address: [address] [place] [id number] Advance Directives For more information, please contact: [phone] * Full Code (Latest Code Status on File) Date Activated Date Inactivated Comments 05/20/2020 3:05 PM 05/24/2020 9:06 PM * Full Code Date Activated Date Inactivated Comments 03/27/2020 11:48 AM 03/27/2020 8:52 PM Care Teams Reservations Clerk Relationship Specialty Start Date End Date Marek Treviño DO PCP - General 08/03/14 Shane Alaniz MD [address] [place] [address] Surgeon Cardiothoracic Surgery 05/24/20 Deonte Martini MD PhD [address] [place] [address] Referring Physician Cardiology 05/24/20 Tone Mishra MD [address] [facility]CLUDE [address] BEDS AT [facility] [address] [place] [id number] Consulting Physician Cardiology 06/04/20
--- OUTSIDE RECORDS SUMMARY | 2024-08-26 11:24 | XMS_ITS | Patient Health Summary ---
Author Organization [facility] Address [address] [facility] [place] [address] Care Team Providers Care Manual Plate Filler Name Role Phone Marek Treviño DO Primary Care Provider [phone] Note from [facility],non-owned Affiliates and Associated Physician Practices is amultiple site organization consisting of ambulatory clinics and hospital sitesin [place], [place], [place] and [place]. This disclosure is being madepursuant to the Care Everywhere program and may not contain all information available regarding this patient. Last updated 18.[facility] Allergies * Diphenhydramine(Palpitations) * Latex(Rash) -Low Criticality * Penicillins(Rash) -Low Criticality Medications * Be aware that medications may not be up to date on this document. Alwaysverify current medications with the patient. * divalproex DR (DEPAKOTE) 500 MG tablet Take 500 mg by mouth 2 times daily * divalproex DR (DEPAKOTE) 250 MG tablet Take by mouth once daily * FLUoxetine (PROZAC) 20 MG capsule Take 20 mg by mouth 3 times daily * levothyroxine (SYNTHROID) 200 MCG tablet Take 200 mcg by mouth daily before breakfast * furosemide (LASIX) 20 MG tablet Take 20 mg by mouth once daily * ROPINirole (REQUIP) 2 MG tablet Take by mouth 2 times daily * Other 2 times daily For shakes * insulin detemir (LEVEMIR) vial Inject subcutaneously 2 times daily * metFORMIN (GLUCOPHAGE) 1000 MG tablet Take 1,000 mg by mouth 2 times daily with morning and evening meal * ferrous sulfate 325 (65 FE) MG tablet Take 325 mg by mouth once daily Social History Tobacco Use Types Packs/Day Years Used Date Smoking Tobacco: Never Smokeless Tobacco: Never Alcohol Use Standard Drinks/Week Comments No 0 (1 standard drink = 0.6 oz pur e alcohol) Sex and Gender Information Value Date Recorded Sex Assigned at Not on file Gender Identity Not on file Sexual Orientation Not on file Last Filed Vital Signs Vital Sign Reading Time Taken Comments Blood Pressure 153/87 05/25/2013 4:21 PM SCRAP DROP CRANE OPERATOR Pulse 89 05/25/2013 4:21 PM SCRAP DROP CRANE OPERATOR Temperature - - Respiratory Rate 16 05/25/2013 4:21 PM SCRAP DROP CRANE OPERATOR Oxygen Saturation - - Inhaled Oxygen Concentration - - Weight 108.9 kg (240 lb) 12/13/2014 8:07 AM CDT Height 167.6 cm (5' 6 ) 12/13/2014 8:07 AM CDT Body Mass Index 38.74 12/13/2014 8:07 AM CDT Procedures * ENDOSCOPY DRUG INDUCED SLEEP EVALUATION(Performed 12/13/2014) Performed for Iron deficiency anemia, unspecified * CT ANGIO BRAIN AND NECK(Performed 02/10/2013) * ECHO COMPLETE(Performed 02/02/2013) * CREATININE BLOOD - POCT (IP) [facility](Performed 07/06/1998) Results * CT ANGIO BRAIN AND NECK (02/10/2013 12:34 PM CDT) Anatomical Region Laterality Modality Head Other Impressions 02/10/2013 4:16 PM CDT IMPRESSION: 1. No acute intracranial process or large arterial occlusions identified in the head or neck. This report was approved by Marjorie Schultz M.D. on 02/10/2013 2:59 PM . I, Dr. ANIVAL DOYLE M.D. have personally reviewed and interpreted this examination/study. This report was electronically signed by ANIVAL DOYLE M.D. on 02/10/2013 4:16 PM . Narrative 02/10/2013 4:16 PM CDT EXAMINATION: Computed tomography (CT) of the head and neck without and with contrast HISTORY: Cognitive disorder and memory loss. TECHNIQUE: CT of the head was performed without contrast according to standard protocol. Then CT angiography of the head and neck was obtained after the uneventful administration of 50 mL Omnipaque 350 intravenous contrast. Three dimensional postprocessing was performed by the technologist and sent to the workstation for review. FINDINGS: No prior study is available for comparison. Head and neck: No acute intra- or extra-axial fluid collections are identified. The ventricles are of normal size, shape, and morphology. The basilar cisterns are patent. No mass effect or midline shift is seen. The domínguez-white matter differentiation is normal. The visualized portions of the orbits, paranasal sinuses, and mastoids appear normal. No acute fracture is identified. No soft tissue abnormalities are identified in the neck. Angiographic findings: The visualized aortic arch appears normal. The configuration of the brachiocephalic vessels is typical. The innominate artery and both subclavian arteries appear normal. The common carotid arteries and carotid bifurcations appear normal. The cervical internal carotid and vertebral arteries appear normal. The distal internal carotid arteries appear normal. The anterior and middle cerebral arteries appear normal. The distal vertebral arteries appear normal. The basilar artery and posterior cerebral arteries appear normal. No aneurysms, vascular occlusions, or intracranial stenoses are identified. Procedure Note Anival Doyle MD - 10/04/2017 EXAMINATION: Computed tomography (CT) of the head and neck without andwith contrast HISTORY: Cognitive disorder and memory loss. TECHNIQUE: CT of the head was performed without contrast according tostandard protocol. Then CT angiography of the head and neck was obtainedafter the uneventful administration of 50 mL Omnipaque 350 intravenouscontrast. Three dimensional postprocessing was performed by the technologist and sent to theworkstation for review. FINDINGS: No prior study is available for comparison. Head and neck: No acute intra- or extra-axial fluid collections are identified. Theventricles are of normal size, shape, and morphology. The basilar cisternsare patent. No mass effect or midline shift is seen. The domínguez-white matterdifferentiation is normal. The visualized portions of the orbits, paranasal sinuses, and mastoids appearnormal. No acute fracture is identified. No soft tissue abnormalities are identified in the neck. Angiographic findings: The visualized aortic arch appears normal. The configuration of thebrachiocephalic vessels is typical. The innominate artery and bothsubclavian arteries appear normal. The common carotid arteries and carotidbifurcations appear normal. The cervical internal carotid and vertebral arteries appear normal. The distal internal carotid arteries appear normal. The anterior andmiddle cerebral arteries appear normal. The distal vertebral arteriesappear normal. The basilar artery and posterior cerebral arteries appearnormal. No aneurysms, vascular occlusions, or intracranial stenoses are identified. IMPRESSION IMPRESSION: 1. No acute intracranial process or large arterial occlusions identifiedin the head or neck. This report was approved by Marjorie Schultz M.D. on 02/10/2013 2:59 PM. I, Dr. ANIVAL DOYLE M.D. have personally reviewed and interpreted thisexamination/study. This report was electronically signed by ANIVAL DOYLE M.D. on 02/10/20134:16 PM . Lester Merino MD CT ORDERABLES * ECHO W DOPPLER AND COLOR FLOW (02/02/2013 12:00 AM CDT) Anatomical Region Laterality Modality Other 02/02/2013 Lester Merino MD ECHOCARDIOGRAPHY RAD IANT * CREATININE BLOOD - POCT (IP) [facility] (07/06/1998 12:00 AM SCRAP DROP CRANE OPERATOR) Creatinine POCT 0.92 0.3 - 1.3 mg/dL PENDING SALE TO [facility] eGFR POCT 60 60 ml/min [facility] 07/06/1998 Jose D Moreland MD LAB - POINT OF CARE ORDERABLES PENDING SALE TO [facility] Care Teams Manual Plate Filler Relationship Specialty Start Date End Date Marek Treviño DO PCP - General Internal Medicine 12/13/14
--- OUTSIDE RECORDS SUMMARY | 2024-08-26 11:24 | XMS_ITS | Clinical Summary ---
Author Organization [facility] [address] Address [address] [place] [address] Care Team Providers Care Tube Cutter Operator Name Role Phone Marek Treviño DO Primary Care Provider [phone] Shane Alaniz MD Unavailable [phone] Deonte Martini MD PhD Unavailable [phone] Tone Mishra MD Unavailable [phone] Allergies Active Allergy Reactions Criticality Noted Date [...] puffs 2 (two) times a day 11 9 Active FUROSEMIDE ORALIndications: Edema Take 20 [...] vibegron (GEMTESA ORAL) Take by mouth A [facility] Hospital, Clinic, or Other Facility Administered Medication Ordered Dose Route Frequency Start Date End Date Status perflutren protein-a (OPTISON) 3 mL in sodium chloride 0.9% 8 mL syringe 1 - 8 mL IV Once in imaging 05/21/2021 Active Active Problems Problem Noted Date Diagnosed Date Venous insufficiency 08/29/2022 Assessment & Plan (08/29/2022 11:59 AM WELDER AND FITTER): Bilateral lower extremity edema with lipodermatosclerosis. Continue compression therapy. Lymphedema pump evaluation as above. Lymphedema 08/29/2022 Assessment & Plan (08/29/2022 11:59 AM WELDER AND FITTER): Patient has history of Lymphedema (I89.0). The patient has tried elevation, exercise, and compression without significant improvements and skin discoloration. Patient would benefit from a Lymphedema pump to be ordered through [facility] to help manage patient condition. Chronic systolic CHF (congestive heart failure) (CMS/HCC) 06/14/2020 S/P mitral valve clip implantation 06/14/2020 Dizziness 06/14/2020 Mitral valve insufficiency 05/08/2020 Overview (05/08/2020): Added automatically from request for surgery [id number] Assessment & Plan (05/23/2020 12:33 PM WELDER AND FITTER): NYHA class IIIb symptom. TTE (03/2020, mean gradient 5mmHg) and RAS (04/2020, mod-severe MR pressure gradient 3mmHg). R/LHC performed 03/2020) - s/p Mitraclip procedure on 05/23/20 with 1 clip -asa, resume home Xarelto tomorrow -CXR and TTE POD1 Cardiomyopathy, idiopathic 07/29/2017 Morbid obesity with BMI of 40.0-44.9, adult 06/05 Assessment & Plan (05/23/2020 12:33 PM WELDER AND FITTER): BMI 41.89 -PT/OT -fall precautions -bariatric equipment if needed at discharge DM (diabetes mellitus) 03/12/2017 Assessment & Plan (05/23/2020 12:39 PM WELDER AND FITTER): - Reduce Lantus to 20 units for tonight only as NPO p MN - Humalog 8 units TID AC - MDSSI + qHS + 2am - Carb consistent diet Renal colic Kidney stone PAF (paroxysmal atrial fibrillation) ([facility]) Assessment & Plan (08/29/2022 11:59 AM WELDER AND FITTER): Stable continue Xarelto 20 mg. DVT (deep venous thrombosis) ([facility]) Atrial flutter ([facility]) Assessment & Plan (05/23/2020 12:29 PM WELDER AND FITTER): Resume home xarelto tomorrow (05/24) - continue asa - Telemetry Exertional chest pain Peripheral artery disease Chronic bronchitis Assessment & Plan (05/23/2020 12:32 PM WELDER AND FITTER): Continue home inhalers Bipolar 1 disorder, depressed ([facility]) Heart failure Assessment & Plan (05/23/2020 12:32 PM WELDER AND FITTER): LVEF 42% w/ GIIDD. on TAVR TTE (03/2020). - continue regimen of carvedilol, entresto - 40 IV lasix tonight - strict I/Os, daily weights, q12 BMP Preop cardiovascular exam Dyspnea Resolved Problems Problem Noted Date Diagnosed Date Resolved Date Heart attack 06/23/2017 Encounters Date Type Department Care Team Description 07/19/2024 3:15 PM WELDER AND FITTER Office Visit [facility] [address] [place] [address] Tone Mishra MD Typical atrial flutter (CMS/HCC) (HCC) (Primary Dx); Cardiomyopathy, idiopathic (HCC); Chronic systolic CHF (congestive heart failure) (CMS/HCC) (HCC); PAF (paroxysmal atrial fibrillation) (CMS/HCC) (HCC); Need for lipid screening from Last 3 Months Immunizations Immunization Administration Dates Next Due Influenza, Quadrivalent, Hig h Dose, Preservative Free, Intrr 05/24/2020 Surgical History Surgery Date Site/Laterality Comments CHOLECYSTECTOMY GASTRIC BYPASS HYSTERECTOMY CARDIAC CATHETERIZATION REPLACEMENT TOTAL KNEE Right Medical History Medical History Date Comments Renal colic Diabetes mellitus (HCC) DVT (deep venous thrombosis) (CMS/HCC) (HCC) Exertional chest pain CHF (congestive heart failure) (CMS/HCC) (HCC) Peripheral artery disease (HCC) Chronic bronchitis (HCC) Bipolar 1 disorder, depressed (CMS/HCC) (HCC) Hypertension Heart failure (HCC) Heart attack (HCC) MR (mitral regurgitation) NICM (nonischemic cardiomyopathy) (CMS/HCC) (HCC ) NICHOLE (obstructive sleep apnea) Heart murmur TIA (transient ischemic attack) COPD (chronic obstructive pulmonary disease) (HC C) Kidney stone PAF (paroxysmal atrial fibrillation) (CMS/HCC) ( HCC) Atrial flutter (CMS/HCC) (HCC) Type 2 diabetes mellitus (HCC) Family History Medical History Relation Name Comments Diabetes Brother Diabetes Father Heart attack Father Heart failure Mother Diabetes Sister Heart attack Sister Heart disease Sister CABG Relation Name Status Comments Brother Father (Age 51) Mother Sister Social History Tobacco Use Types Packs/Day Years Used Date Smoking Tobacco: Never Smokeless Tobacco: Never Tobacco Cessation:Counseling Given: Not Answered Alcohol Use Standard Drinks/Week Comments No 0 (1 standard drink = 0.6 oz pur e alcohol) Comments No Sex and Gender Information Value Date Recorded Sex Assigned at Not on file Legal Sex Female 3:33 AM WELDER AND FITTER Gender Identity Not on file Sexual Orientation Not on file Obstetrics History Last Filed Vital Signs Vital Sign Reading Time Taken Comments Blood Pressure 112/70 07/19/2024 3:09 PM WELDER AND FITTER Pulse 82 07/19/2024 3:09 PM WELDER AND FITTER Temperature 36.1 C (96.9 F) 06/26/2020 3:00 PM WELDER AND FITTER Respiratory Rate 18 06/15/2020 4:15 PM WELDER AND FITTER Oxygen Saturation 97% 07/19/2024 3:09 PM WELDER AND FITTER Inhaled Oxygen Concentration - - Weight 96.6 kg (213 lb) 07/19/2024 3:09 PM WELDER AND FITTER Height 167.6 cm (5' 6 ) 07/19/2024 3:09 PM WELDER AND FITTER Body Mass Index 34.38 07/19/2024 3:09 PM WELDER AND FITTER Plan of Treatment Health Maintenance Due Date Last Done Comments Albumin Creatinine Ratio, Urine 1955 Breast Cancer Screening-Mammogram 1955 Colon Cancer Screening-Colonoscopy 1955 Depression Screening 1955 Hepatitis C Screening 1955 Osteoporosis Screening-Bone Density Scan 1955 Dilated Eye Exam 1955 Foot Exam 1955 DTaP/Tdap/Td Vaccine (1 - Tdap) 1966 Hepatitis B Screening 1973 Pneumococcal vaccine 65+ (1 of 2 - PCV) 1974 Zoster Vaccine (1 of 2) 2005 Well Visit 65+ 02/09/2020 Hemoglobin A1C 11/11/2020 05/14/2020 Fall Risk Assessment 05/24/2021 05/24/2020 eGFR 05/21/2022 05/21/2021, 03/13/2020 Influenza Vaccine (#1) 2024 , 05/07/2019, 08/07/2018, Additional history exists Lipid Panel 07/19/2025 07/19/2024, 07/06, 06/13/2021, Additional history exists Medical Devices Implanted Type Area Mount Loader Device Identifier Shelf Expiration Date Model / Serial / Lot [employer] [id number] Mitraclip G4 Clip Delivery System Ntw - [id number] Implanted:Qty : 1 on 05/23/2020 by Deonte Martini MD PhD at [facility] Clip N/A: Mitral Valve [employer] 09/28/2020 [id number] / / [id number] [employer] [id number] Mitraclip G4 Implant System - [id number] Implanted:Qty : 1 on 05/23/2020 by Deonte Martini MD PhD at [facility] [employer] [id number] 06/04/2030 [facility] 100 / / VIRTUAL ITEM Procedures Procedure Name Priority Date/Time Associated Diagnosis Comments POCT LIPID PANEL Routine 07/19/2024 4:05 PM WELDER AND FITTER Need for lipid screening EGFR Routine 05/21/2021 3:16 PM WELDER AND FITTER S/P mitral valve clip implantation POCT HEMOGLOBIN A1C Routine 05/14/2020 9 :25 AM WELDER AND FITTER from Last 3 Months or Most Recently Relevant to Health Maintenance Results * POCT lipid panel (07/19/2024 4:05 PM WELDER AND FITTER) Cholesterol, POC 167 mg/dL Comment:GLU = 209 HDL, POC 58 mg/dL Triglycerides, POC 82 mg/dL LDL Cholesterol POC 93 mg/dL Chol/HDL Ratio, POC 1.6 Non-HDL Cholesterol, POC 109 mg/dL Cholesterol Total, POC 167 mg/dL Capillary blood 07/19/2024 4 :05 PM WELDER AND FITTER us Tone Mishra MD POINT OF CARE TEST ORDER JOSE Final Result * eGFR (05/21/2021 3:16 PM WELDER AND FITTER) eGFR 61 mL/min/1.7 3 m2 [facility] [...] last reviewed 2020 Blood 05/21/2021 3:16 PM WELDER AND FITTER 05/21/2021 4:03 PM WELDER AND FITTER Sydnie Rodriguez SAFETY CLOTHING AND EQUIPMENT DEVELOPER LAB BLOOD ORDERABLES Final R esult Performing Organization Address City/[facility] Co de Phone Number [facility] [address] [facility] Department [place] [address] * (ABNORMAL) POCT hemoglobin A1c (05/14/2020 9:25 AM WELDER AND FITTER) Hgb A1C, POC 8.5(H) 4.0 - 6.0 % [facility] Est Average Gluc POC 197 mg/dL [facility] Comment: The ADA recommends reporting an estimated Average Glucose (eAG) with all Hemoglobin A1c results using the equation derived from a study of 507 normal and diabetic adults. Minority populations were underrepresented and children were not included. (Diabetes Care 31:8829-1320, 2008). The eAG is not equivalent to a fasting glucose. Blood specimen (specimen) 05/14/2020 9:25 AM WELDER AND FITTER 05/14/2020 9:25 AM WELDER AND FITTER us Deonte Martini MD PhD POINT OF CARE TEST ORDERAB LES Final Result Performing Organization Address [facility] Co de Phone Number [facility] Department [place] [address] from Last 3 Months or Most Recently Relevant to Health Maintenance Insurance MEDICARE SOLUTIONS MEDICARE SOLUTIONS MEDICARE AETNA SIG [id number] Member Subscriber Plan / Payer (Ef fective 2020-Present) Name:Elida Chenra Ludwig Relation to Subscriber:Self Name:Charlene Chen Payer ID:[id number] (NAIC) Type:[place] [employer] MEDICARE Address: [place] [id number] Advance Directives For more information, please contact: [phone] * Full Code (Latest Code Status on File) Date Activated Date Inactivated Comments 05/20/2020 3:05 PM 05/24/2020 9:06 PM * Full Code Date Activated Date Inactivated Comments 03/27/2020 11:48 AM 03/27/2020 8:52 PM Care Teams Tube Cutter Operator Relationship Specialty Start Date End Date Marek Treviño DO PCP - General 08/03/14 Shane Alaniz MD [address] [place] [address] Surgeon Cardiothoracic Surgery 05/24/20 Deonte Martini MD PhD [address] [place] [address] Referring Physician Cardiology 05/24/20 Tone Mishra MD [address] [address] Consulting Physician Cardiology 06/04/20
--- OUTSIDE RECORDS SUMMARY | 2024-08-26 11:24 | XMS_ITS | Clinical Summary ---
Author Organization [email or web address] Address [address] [facility] [place] [address] Care Team Providers Care Gas Furnace Installer Name Role Phone Marek Treviño DO Primary Care Provider [phone] Source Comments [email or web address],non-owned Affiliates and Associated Physician Practices is amultiple site organization consisting of ambulatory clinics and hospital sitesin [place], [place], [place] and [place]. This disclosure is being madepursuant to the Care Everywhere program and may not contain all information available regarding this patient. Last updated 18.[email or web address] Allergies Active Allergy Reactions Criticality Noted Date Comments Diphenhydramine Palpitations 12/13/2014 Latex Rash Low 12/13/2014 Penicillins Rash Low 12/13/2014 Medications * Be aware that medications may not be up to date on this document. Alwaysverify current medications with the patient. Medication Sig Dispensed Refills Start Date End Date Status divalproex DR (DEPAKOTE) 500 MG tablet Take 500 mg by mouth 2 times daily Active divalproex DR (DEPAKOTE) 250 MG tablet Take by mouth once daily Active FLUoxetine (PROZAC) 20 MG capsule Take 20 mg by mouth 3 times daily Active levothyroxine (SYNTHROID) 200 MCG tablet Take 200 mcg by mouth daily before breakfast Activ e furosemide (LASIX) 20 MG tablet Take 20 mg by mouth once daily Active ROPINirole (REQUIP) 2 MG tablet Take by mouth 2 times daily Active Other 2 times daily For shakes Active insulin detemir (LEVEMIR) vial Inject subcutaneously 2 times daily Active metFORMIN (GLUCOPHAGE) 1000 MG tablet Take 1,000 mg by mouth 2 times daily with morning and evening meal Active ferrous sulfate 325 (65 FE) MG tablet Take 325 mg by mouth once daily Active Family History Medical History Relation Name Comments Diabetes Brother Diabetes Father Heart Failure Father Stroke Mother Diabetes Sister Relation Name Status Comments Brother Father Mother Sister Social History Tobacco Use Types [...] Comments Blood Pressure 153/87 05/25/2013 4:21 PM MEAT MARKET MANAGER Pulse 89 05/25/2013 4:21 PM MEAT MARKET MANAGER Temperature - - Respiratory Rate 16 05/25/2013 4:21 PM MEAT MARKET MANAGER Oxygen Saturation - - Inhaled Oxygen Concentration - - Weight 108.9 kg (240 lb) 12/13/2014 8:07 AM CDT Height 167.6 cm (5' 6 ) 12/13/2014 8:07 AM CDT Body Mass Index 38.74 12/13/2014 8:07 AM CDT Plan of Treatment Health Maintenance Due Date Last Done Comments BONE DENSITY TESTING 1955 COLOGUARD (AGES 45-75) - COL ON CA SCREENING 1955 COLON MONITORING 1955 COLONOSCOPY - COLON CA SCREENING 1955 CT COLONOGRAPHY - COLON CA SCREENING 1955 Colorectal Cancer Screening 1955 FIT - COLON CA SCREENING 1955 FLEX SIG - COLON CA SCREENING 1955 LIPID TESTING 1955 MAMMOGRAM 1955 HEPATITIS C SCREENING 02/03/1973 DTAP/TDAP/TD VACCINES (1 - Tdap) 1974 PNEUMOCOCCAL VACCINE 50+ (1 of 1 - PCV) 2005 ZOSTER VACCINE (1 of 2) 2005 COVID-19 VACCINE ( - 2023-2 5 season) 2024 INFLUENZA VACCINE (#1) 2024 DEPRESSION SCREENING 07/06/2024 Respiratory Syncytial Virus (RSV) Vaccine Pt: or over 60 yrs (1 - 1-dose 75+ series) 2030 HEPATITIS B VACCINE Aged Out No longe r eligible based on patient's age to complete this topic HIB VACCINE Aged Out No longer eligi ble based on patient's age to complete this topic HPV VACCINE Aged Out No longer eligi ble based on patient's age to complete this topic MENINGOCOCCAL (Group B) VACCINE Aged Out No longer eligible based on patient's age to complete this topic MENINGOCOCCAL VACCINE Aged Out No jayesh enedina eligible based on patient's age to complete this topic Care Teams Gas Furnace Installer Relationship Specialty Start Date End Date Marek Treviño DO PCP - General Internal Medicine 12/13/14
--- OUTSIDE RECORDS SUMMARY | 2024-08-26 11:24 | XMS_ITS | Referral Summary ---
Author Organization [facility] Address [address] [place] [address] Care Team Providers Care Debit Agent Name Role Phone Marek Treviño DO Primary Care Provider [phone] Source Comments [facility] Your Office Agent,non-owned Affiliates and Associated Physician Practices is amultiple site organization consisting of ambulatory clinics and hospital sitesin [place], [place], [place] and [place]. This disclosure is being madepursuant to the Care Everywhere program and may not contain all information available regarding this patient. Last updated 18.[facility] Your Office [facility] Allergies Active Allergy Reactions Criticality Noted Date [...] 325 mg by mouth once daily Active Social History Tobacco Use Types Packs/Day Years [...] Comments Blood Pressure 153/87 05/25/2013 4:21 PM APPRENTICE STYLIST Pulse 89 05/25/2013 4:21 PM APPRENTICE STYLIST Temperature - - Respiratory Rate 16 05/25/2013 4:21 PM APPRENTICE STYLIST Oxygen Saturation - - Inhaled Oxygen Concentration - - Weight 108.9 kg (240 lb) 12/13/2014 8:07 AM CDT Height 167.6 cm (5' 6 ) 12/13/2014 8:07 AM CDT Body Mass Index 38.74 12/13/2014 8:07 AM CDT Plan of Treatment Not on file Care Teams Debit Agent Relationship Specialty Start Date End Date Marek Treviño DO PCP - General Internal Medicine 12/13/14
--- OUTSIDE RECORDS SUMMARY | 2024-08-26 11:24 | XMS_ITS | Clinical Summary ---
Author Organization [facility] Address [address] [place] [address] Care Team Providers Care Contract Lead Name Role Phone Unavailable Primary Care Provider Unavailabl e Social History Tobacco Use Types Packs/Day Years Used Date Smoking Tobacco: Never Assessed Comments Unknown Sex and Gender Information Value Date Recorded Sex Assigned at Not on file Legal Sex Female 5:15 PM CDT Gender Identity Not on file Sexual Orientation Not on file Plan of Treatment Health Maintenance Due Date Last Done Comments Colorectal Cancer Screening Colonoscopy (10 Years) 1955 Hepatitis C 1973 DTaP, Tdap and Td Vaccines ( 1 - Tdap) 1974 Mammogram Screening 1995 Zoster Vaccines (1 of 2) 2005 Dexa Scan (General) 02/09/2020 Pneumococcal Vaccine: 65+ Ye ars (1 of 1 - PCV) 02/09/2020 COVID-19 Vaccine (2023-2 5 season) 2024 Influenza Adult (#1) 2024 RSV Immunization or 60+ Years (1 - 1-dose 75+ series) 2030 Meningococcal B Vaccine Aged Out No l onger eligible based on patient's age to complete this topic Meningococcal Vaccine Aged Out No jayesh enedina eligible based on patient's age to complete this topic RSV Immunizations Under 20 Months Aged Out No longer eligible based on patient's age to complete this topic
--- OUTSIDE RECORDS SUMMARY | 2024-08-26 11:24 | XMS_ITS | Clinical Summary ---
Author Organization [facility] Address [address] [place] [address] Phone Care Team Providers Care Machine Ceramic Coater Name Role Phone Unavailable Primary Care Provider Unavailabl e Social History Tobacco Use Types Packs/Day Years Used Date Smoking Tobacco: Never Assessed Comments Unknown Sex and Gender Information Value Date Recorded Sex Assigned at Not on file Legal Sex Female 8:11 PM SOCIETY REPORTER Gender Identity Not on file Sexual Orientation Not on file Plan of Treatment Not on file
--- OUTSIDE RECORDS SUMMARY | 2024-08-26 11:24 | XMS_ITS | Encounter Summary ---
Author Organization [facility] Address [address] [place] [address] Phone Care Team Providers Care Kitchen Utility Associate Name Role Phone Marek Treviño DO Primary Care Provider [phone] Lisa Pierce NP Unavailable Shane Alaniz MD Unavailable [phone] Deonte Martini MD PhD Unavailable [phone] Tone Mishra MD Unavailable [phone] Encounter Details Date Type Department Care Team (Latest Contact Info) Description 02/03/2017 Orders Only [facility] Scanning, Provider Social History Tobacco Use Types Packs/Day Years Used Date Smoking Tobacco: Never Assessed Comments Unknown Sex and Gender Information Value Date Recorded Sex Assigned at Not on file Legal Sex Female 3:33 AM 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 PROCESS STILLMAN Gender Identity Not on file Sexual Orientation Not on file documented as of this encounter Plan of Treatment Not on file documented as of this encounter Procedures Procedure Name Priority Date/Time Associated Diagnosis Comments CARDIOLOGY DOCUMENT SCAN 02/03/2017 documented in this encounter Results * SCAN - CARDIOLOGY (02/03/2017) Anatomical Region Laterality Modality Other us Provider Scanning CV CARDIAC SERVICES PROCEDURES Final Result documented in this encounter Visit Diagnoses Not on filedocumented in this encounter Care Teams Kitchen Utility Associate Relationship Specialty Start Date End Date Marek Treviño DO PCP - General 08/03/14 Lisa Pierce NP [address] [place] [address] Referring Physician Cardiology 09/06/19 02/25/23 Shane Alaniz MD [address] [place] [address] Surgeon Cardiothoracic Surgery 05/24/20 Deonte Martini MD PhD [address] [place] [address] Referring Physician Cardiology 05/24/20 Tone Mishra MD [address] [place] [address] Consulting Physician Cardiology 06/04/20 documented as of this encounter
== END 2024-08-26 10:48 | disposition home or self-care (01) ==
PROVIDERS: PCP Internal Medicine; Visit Provider Urology
DX: N20.0 Calculus of kidney (principal); R91.1 Solitary pulmonary nodule; R14.0 Abdominal distension (gaseous)
CPT/HCPCS: 74018; 74176

== ENCOUNTER 2025-01-26 13:55 | Outpatient (CLI) | payer MEDICARE, SELFPAY ==
--- OUTSIDE RECORDS SUMMARY | 2025-01-26 14:11 | XMS_ITS | Encounter Summary ---
Author Organization [facility] Address [address] [place] [address] Phone Care Team Providers Care Embedded Linux Engineer Name Role Phone Marek Treviño DO Primary Care Provider [phone]- [phone] Lisa Pierce NP Unavailable Shane Alaniz MD Unavailable [phone] Deonte Martini MD PhD Unavailable [phone] Tone Mishra MD Unavailable [phone] Encounter Details Date Type Department Care Team (Latest Contact Info) Description 02/03/2017 Orders Only [facility] Scanning, Provider Social History Tobacco Use Types Packs/Day Years Used Date Smoking Tobacco: Never Assessed Comments Unknown Sex and Gender Information Value Date Recorded Sex Assigned at Not on file Legal Sex Female 3:33 AM EMERGENCY DEPARTMENT DIRECTOR Gender Identity Not on file Sexual Orientation Not on file documented as of this encounter Plan of Treatment Upcoming Encounters Date Type Department Care Team (Latest Contact Info) Description 01/26/2025 2:15 PM CDT Ancillary Procedure [facility] Medical Group Cardiology [address] [place] [address] Cardiomyopathy, idiopathic (HCC); Dizziness documented as of this encounter Procedures Procedure Name Priority Date/Time Associated Diagnosis Comments CARDIOLOGY DOCUMENT SCAN 02/03/2017 documented in this encounter Results * SCAN - CARDIOLOGY (02/03/2017) Anatomical Region Laterality Modality Other us Provider Scanning CV CARDIAC SERVICES PROCEDURES Final Result documented in this encounter Visit Diagnoses Not on filedocumented in this encounter Care Teams Embedded Linux Engineer Relationship Specialty Start Date End Date Marek Treviño DO PCP - General 08/03/14 Lisa Pierce NP [address] [address] Referring Physician Cardiology 09/06/19 02/25/23 Shane Alaniz MD [address] [place] [address] Surgeon Cardiothoracic Surgery 05/24/20 Deonte Martini MD PhD [address] [place] [address] Referring Physician Cardiology 05/24/20 Tone Mishra MD [address] [address] Consulting Physician Cardiology 06/04/20 documented as of this encounter
--- OUTSIDE RECORDS SUMMARY | 2025-01-26 14:11 | XMS_ITS | Clinical Summary ---
Author Organization [facility] Address [address] [place] [address] Phone Care Team Providers Care Transfer Agent Name Role Phone Unavailable Primary Care Provider Unavailabl e Social History Tobacco Use Types Packs/Day Years Used Date Smoking Tobacco: Never Assessed Comments Unknown Sex and Gender Information Value Date Recorded Sex Assigned at Not on file Legal Sex Female 8:11 PM SENIOR AGRICULTURAL ASSISTANT Gender Identity Not on file Sexual Orientation Not on file Plan of Treatment Not on file
--- OUTSIDE RECORDS SUMMARY | 2025-01-26 14:11 | XMS_ITS | Clinical Summary ---
Author Organization [facility] Address [facility] [place] [address] Care Team Providers Care Hose Builder Name Role Phone Unavailable Primary Care Provider [...] 1 - Tdap) 1974 Mammogram Screening 1995 Pneumococcal Vaccine: 50+ Ye ars (1 of 1 - PCV) 2005 Zoster Vaccines (1 of 2) 2005 Dexa Scan (General) 02/09/2020 COVID-19 Vaccine ( - 2023-2 5 season) 2024 RSV Immunization or 60+ Years (1 [...]
--- OUTSIDE RECORDS SUMMARY | 2025-01-26 14:11 | XMS_ITS | Referral Summary ---
Author Organization [place] [address] Address [address] [facility] [address] [place] [address] Care Team Providers Care Industrial Robotics Mechanic Name Role Phone Marek Treviño DO Primary Care Provider [phone] Shane Alaniz MD Unavailable [phone] Deotne Martini MD PhD Unavailable [phone] Tone Mishra MD Unavailable [phone] Encounters Date Type Department Care Team Description 01/26/2025 2:15 PM CDT Ancillary Procedure [facility] Medical Group Cardiology [address] [place] [address] [address] [place] [address] Cardiomyopathy, idiopathic (HCC); Dizziness 01/26/2025 1:45 PM CDT Office Visit [facility] Medical [facility] Cardiology [address] [place] [address] [address] [place] [address] Tone Mishra MD Chronic systolic CHF (congestive heart failure) (HCC) (Primary Dx); Cardiomyopathy, idiopathic (HCC); Dizziness from Last 3 Months Allergies Active Allergy [...] times a day 11 9 Active FUROSEMIDE ORALIndications :Edema Take 20 mg by mouth 2 (two) times a day 0 Active insulin lispro (HumaLOG, ADMELOG) 100 unit/mL injection Inject under the skin 3 (three) times a day before meals Active pregabalin (LYRICA) 150 mg capsuleIndicati ons:Restless Legs Syndrome Take 150 mg by mouth 2 (two) times a day Active fluticasone propionate (FLONASE) 50 mcg/actuation nasal spray 2 sprays daily 1 Active albuterol HFA (PROVENTIL HFA,VENTOLIN HFA,PROAIR HFA) 90 mcg/actuation inhaler INHALE 2 PUFFS BY MOUTH EVERY 4 6 HOURS NEEDED FOR SHORTNESS OF BREATH 1 Active albuterol 2.5 mg /3 mL (0.083 %) nebulizer solution as needed 1 Active TRESIBA 100 unit/mL (3 mL) pen for injection 1 Active atorvastatin (LIPITOR) 40 mg tablet 1 Active nitroglycerin (NITROSTAT) 0.4 mg SL tabletIndicatio ns:acute episode of anginal pain Place 1 tablet (0.4 mg total) under the tongue every 5 (five) minutes as needed for chest pain May repeat dose q 5 min, up to 3 doses total 30 tablet 1 Active guaiFENesin-cod eine (GUAITUSS AC) liquid 100-10 mg/5 mL 1 Active isosorbide mononitrate ER (IMDUR) 30 mg 24 hr tabletIndicatio ns:prevention of anginal pain in coronary artery disease Take 1 tablet (30 mg total) by mouth daily 30 tablet 3 2 Active Additional Information Patient not taking.Reported on 07/19/2024 sertraline (ZOLOFT) 100 mg tablet TAKE 1&1/2 TABLETS BY MOUTH EVERY DAY 2 Active nystatin powder APPLY TOPICALLY 3 TIMES A DAY 3 Active buPROPion XL (WELLBUTRIN XL) 150 mg 24 hr tablet Take 1 tablet (150 mg total) by mouth every morning 2 Active Entresto 49-51 mg tablet TAKE 1 TABLET BY MOUTH TWICE A DAY 60 tablet 11 3 Active rivaroxaban (Xarelto) 20 mg tabletIndicatio ns:Atypical atrial flutter (HCC) TAKE 1 TABLET BY MOUTH EVERY DAY 90 tablet 3 Active carvediloL (COREG) 25 mg tablet TAKE 0.5 TABLET BY MOUTH 2 TIMES A DAY WITH MEALS 90 tablet 3 Active vibegron (GEMTESA ORAL) Take by mouth A ctive cyclobenzaprine (FLEXERIL) 10 mg tablet Take 10 mg by mouth 2 (two) times a day as needed 1 025 Discontin ued(Patie nt Reported) HYDROcodone-rowena taminophen (NORCO) 5-325 mg per tablet Take 1 tablet by mouth every 6 (six) hours as needed 1 025 Discontin ued(Patie nt Reported) ferrous sulfate 325 mg (65 mg of elemental iron) tabletIndicatio ns:Iron Deficiency Anemia Take 65 mg of elemental iron by mouth 2 (two) times a day 025 Discontin ued(Patie nt Reported) Ozempic 0.25 mg or 0.5 mg(2 mg/1.5 mL) pen injector injection 1 025 Discontin ued(Patie nt Reported) melatonin 5 mg tablet 1 025 Discontin ued(Patie nt Reported) doxycycline 100 mg tablet Take 100 mg by mouth every 12 (twelve) hours 3 025 Discontin ued(Patie nt Reported) Hospital, Clinic, or Other Facility Administered Medication Ordered Dose Route Frequency Start Date End Date Status perflutren protein-a (OPTISON) 3 mL in sodium chloride 0.9% 8 mL syringe 1 - 8 mL IV Once in imaging 05/21/2021 Active Active Problems Problem Noted Date Diagnosed Date Venous insufficiency 08/29/2022 Assessment & Plan (08/29/2022 11:59 AM INSTRUMENT TECHNOLOGIST): Bilateral lower extremity edema with lipodermatosclerosis. Continue compression therapy. Lymphedema pump evaluation as above. Lymphedema 08/29/2022 Assessment & Plan (08/29/2022 11:59 AM INSTRUMENT TECHNOLOGIST): Patient has history of Lymphedema (I89.0). The patient has tried elevation, exercise, and compression without significant improvements and skin discoloration. Patient would benefit from a Lymphedema pump to be ordered through [facility] to help manage patient condition. Chronic systolic CHF (congestive heart failure) 06/14/2020 S/P mitral valve clip implantation 06/14/2020 Dizziness 06/14/2020 Mitral valve insufficiency 05/08/2020 Overview (05/08/2020): Added automatically from request for surgery [id number] Assessment & Plan (05/23/2020 12:33 PM INSTRUMENT TECHNOLOGIST): NYHA class IIIb symptom. TTE (03/2020, mean gradient 5mmHg) and RAS (04/2020, mod-severe MR pressure gradient 3mmHg). R/LHC performed 03/2020) - s/p Mitraclip procedure on 05/23/20 with 1 clip -asa, resume home Xarelto tomorrow -CXR and TTE POD1 Cardiomyopathy, idiopathic 07/29/2017 Morbid obesity with BMI of 40.0-44.9, adult 06/05 Assessment & Plan (05/23/2020 12:33 PM INSTRUMENT TECHNOLOGIST): BMI 41.89 -PT/OT -fall precautions -bariatric equipment if needed at discharge DM (diabetes mellitus) 03/12/2017 Assessment & Plan (05/23/2020 12:39 PM INSTRUMENT TECHNOLOGIST): - Reduce Lantus to 20 units for tonight only as NPO p MN - Humalog 8 units TID AC - MDSSI + qHS + 2am - Carb consistent diet Renal colic Kidney stone PAF (paroxysmal atrial fibrillation) Assessment & Plan (08/29/2022 11:59 AM INSTRUMENT TECHNOLOGIST): Stable continue Xarelto 20 mg. DVT (deep venous thrombosis) Atrial flutter Assessment & Plan (05/23/2020 12:29 PM INSTRUMENT TECHNOLOGIST): Resume home xarelto tomorrow (05/24) - continue asa - Telemetry Exertional chest pain Peripheral artery disease Chronic bronchitis Assessment & Plan (05/23/2020 12:32 PM INSTRUMENT TECHNOLOGIST): Continue home inhalers Bipolar 1 disorder, depressed Heart failure Assessment & Plan (05/23/2020 12:32 PM INSTRUMENT TECHNOLOGIST): LVEF 42% w/ GIIDD. on TAVR TTE [...] on file Legal Sex Female 3:33 AM INSTRUMENT TECHNOLOGIST Gender Identity Not on file Sexual Orientation Not on file Last Filed Vital Signs Vital Sign Reading Time Taken Comments Blood Pressure 112/72 01/26/2025 1:10 PM CDT Pulse 71 01/26/2025 1:10 PM CDT Temperature 36.1 C (96.9 F) 06/26/2020 3:00 PM INSTRUMENT TECHNOLOGIST Respiratory Rate 18 06/15/2020 4:15 PM INSTRUMENT TECHNOLOGIST Oxygen Saturation 97% 01/26/2025 1: 10 PM CDT Inhaled Oxygen Concentration - - Weight 92.5 kg (203 lb 14.4 oz) 01/26/2025 1:10 PM CDT Height 167.6 cm (5' 6) 01/26/2025 1:10 PM CDT Body Mass Index 32.91 01/26/2025 1:10 PM CDT Plan of Treatment Upcoming Encounters Date Type Department Care Team (Latest Contact Info) Description 01/26/2025 2:15 PM CDT Ancillary Procedure [facility] Medical Group Cardiology [address] [place] [address] Cardiomyopathy, idiopathic (HCC); Dizziness Medical Devices Implanted Type Area Bessemer Converter Blower Device Identifier Shelf Expiration Date Model / Serial / Lot [employer] [id number] Mitraclip G4 Clip Delivery System Ntw - [id number] Implanted:Qty : 1 on 05/23/2020 by Deonte Martini MD PhD at [facility] Clip N/A: Mitral Valve [employer] 09/28/2020 [id number] / / [id number] [employer] [id number] Mitraclip G4 Implant System - [id number] Implanted:Qty : 1 on 05/23/2020 by Deonte Martini MD PhD at [facility] [employer] [id number] 06/04/2030 [id number] 100 / / VIRTUAL ITEM Procedures Procedure Name Priority Date/Time Associated Diagnosis Comments POCT LIPID PANEL Routine 07/19/2024 4:05 PM INSTRUMENT TECHNOLOGIST Need for lipid screening EGFR Routine 05/21/2021 3:16 PM INSTRUMENT TECHNOLOGIST S/P mitral valve clip implantation POCT HEMOGLOBIN A1C Routine 05/14/2020 9 :25 AM INSTRUMENT TECHNOLOGIST from Last 3 Months or Most Recently Relevant to Health Maintenance Results * POCT lipid panel (07/19/2024 4:05 PM INSTRUMENT TECHNOLOGIST) Pathologist [facility] Cholesterol, POC 167 mg/dL Comment:GLU = 209 HDL, POC 58 mg/dL Triglycerides, POC 82 mg/dL LDL Cholesterol POC 93 mg/dL Chol/HDL Ratio, POC 1.6 Non-HDL Cholesterol, POC 109 mg/dL Cholesterol Total, POC 167 mg/dL Capillary blood 07/19/2024 4 :05 PM INSTRUMENT TECHNOLOGIST Tone Mishra MD POINT OF CARE TEST ORDER JOSE Final Result * eGFR (05/21/2021 3:16 PM INSTRUMENT TECHNOLOGIST) Pathologist [facility] eGFR 61 mL/min/1.7 3 m2 [facility] Comment: Interpretive Data Reference Interval Normal >/= [...] last reviewed 2020 Blood 05/21/2021 3:16 PM INSTRUMENT TECHNOLOGIST 05/21/2021 4:03 PM INSTRUMENT TECHNOLOGIST us Sydnie Rodriguez NP LAB BLOOD ORDERABLES Final R esult Performing Organization Address City/[facility]/ZIP Co de Phone Number [facility] [address] [place] [place] [address] * (ABNORMAL) POCT hemoglobin A1c (05/14/2020 9:25 AM INSTRUMENT TECHNOLOGIST) Hgb A1C, POC 8.5(H) 4.0 - 6.0 % [facility] Est Average Gluc POC 197 mg/dL [facility] Comment: The ADA recommends reporting an estimated Average Glucose (eAG) with all Hemoglobin A1c results using the equation derived from a study of 507 normal and diabetic adults. Minority populations were underrepresented and children were not included. (Diabetes Care 31:3273-7654, 2008). The eAG is not equivalent to a fasting glucose. Blood specimen (specimen) 05/14/2020 9:25 AM INSTRUMENT TECHNOLOGIST 05/14/2020 9:25 AM INSTRUMENT TECHNOLOGIST us Deonte Martini MD PhD POINT OF CARE TEST ORDERAB LES Final Result [facility] Department [place] [address] from Last 3 Months or Most Recently Relevant to Health Maintenance Insurance [facility] MEDIC[facility] Address: [place] [address] UHC MEDICARE ADVANTAGE MEDICARE AETNA SIG [id number] [place] [facility] MEDICARE ADVANTAGE [facility] Address: [address] [place] [address] [facility] MEDIC[facility] Address: [address] [address] [place] [address] Advance Directives For more information, please contact: [phone] * Full Code (Latest Code Status on File) Date Activated Date Inactivated Comments 05/20/2020 3:05 PM 05/24/2020 9:06 PM * Full Code Date Activated Date Inactivated Comments 03/27/2020 11:48 AM 03/27/2020 8:52 PM Care Teams Industrial Robotics Mechanic Relationship Specialty Start Date End Date Marek Treviño DO PCP - General 08/03/14 Shane Alaniz MD [address] [place] [address] Surgeon Cardiothoracic Surgery 05/24/20 Deonte Martini MD PhD [address] [place] [address] Referring Physician Cardiology 05/24/20 Tone Mishra MD [address] [place] [address] Consulting Physician Cardiology 06/04/20
--- OUTSIDE RECORDS SUMMARY | 2025-01-26 14:11 | XMS_ITS | Encounter Summary ---
Author Organization [facility] Address [address] [place] [address] Care Team Providers Care Industrial Boilermaker Name Role Phone Marek Treviño DO Primary Care Provider [phone] Shane Alaniz MD Unavailable [phone] Deonte Martini MD PhD Unavailable [phone] Tone Mishra MD Unavailable [phone] Reason for Visit * Cardiology (Routine) - Closed Specialty Diagnoses / Procedures Referred By Contac t Referred To Contact Diagnoses Cardiomyopathy, idiopathic (HCC) Dizziness Procedures 48 HR Holter Monitor Tone Mishra MD [address] [place] [address] Phone: tel: fax: [facility] Cardiology [address] [place] [address] [address] [place] [address] Phone: tel: fax: Referral ID Status Reason Start Date Expiration Date Visits Re quested Visits Authorized [id number] Closed 01/26/2025 02/25/2026 1 1 Encounter Details Date Type Department Care Team (Latest Contact Info) Description 01/26/2025 2:15 PM CDT Ancillary Procedure [facility] Cardiology [address] [place] [address] [address] [place] [address] Cardiomyopathy, idiopathic (HCC); Dizziness Social History Tobacco Use Types Packs/Day Years Used Date Smoking Tobacco: Never Smokeless Tobacco: Never Alcohol Use Standard Drinks/Week Comments No 0 (1 standard drink = 0.6 oz pur e alcohol) Comments No Sex and Gender Information Value Date Recorded Sex Assigned at Not on file Legal Sex Female 3:33 AM RECOVERY ASSISTANT Gender Identity Not on file Sexual Orientation Not on file documented as of this encounter Plan of Treatment Pending Results Name Type Priority Associated Diagnoses Date /Time 48 HR Holter Monitor Cardiac Services Routine Cardiomyopathy, idiopathic (HCC) Dizziness 01/26/2025 1:43 PM CDT documented as of this encounter Visit Diagnoses Diagnosis Cardiomyopathy, idiopathic (HCC) Other primary cardiomyopathies Dizziness Dizziness and giddiness documented in this encounter Care Teams Industrial Boilermaker Relationship Specialty Start Date End Date Marek Treviño DO PCP - General 08/03/14 Shane Alaniz MD [address] [place] [address] Surgeon Cardiothoracic Surgery 05/24/20 Deonte Martini MD PhD [address] [place] [address] Referring Physician Cardiology 05/24/20 Tone Mishra MD [address] [address] Consulting Physician Cardiology 06/04/20 documented as of this encounter
--- OUTSIDE RECORDS SUMMARY | 2025-01-26 14:11 | XMS_ITS | Encounter Summary ---
Author Organization [facility] Healthcare Address [address] [place] [address] Care Team Providers Care Assistant Case Manager Name Role Phone Marek Treviño DO Primary Care Provider [phone] Shane Alaniz MD Unavailable [phone] Deonte Martini MD PhD Unavailable [phone] Tone Mishra MD Unavailable Reason for Referral * Cardiology (Routine) - Closed Specialty Diagnoses / Procedures Referred By Contac t Referred To Contact Diagnoses Cardiomyopathy, idiopathic (HCC) Dizziness Procedures 48 HR Holter Monitor Tone Mishra MD [address] [place] [address] Phone: tel: fax: [facility] Medical Group Cardiology [address] [place] [phone] Phone: tel: fax: Referral ID Status Reason Start Date Expiration Date Visits Re quested Visits Authorized [id number] Closed 01/26/2025 02/25/2026 1 1 Reason for Visit * Reason Comments Follow-up 6 mo f/u. vineet ssed away two months ago. Under stress taking care of two babies for the past year Atrial Fibrillation Cardiomyopathy Encounter Details Date Type Department Care Team (Late st Contact Info) Description 01/26/2025 1:45 PM CDT Office Visit 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 Gender Identity Not on file Sexual Orientation Not on file documented as of this encounter Last Filed Vital Signs Vital Sign Reading Time Taken Comments Blood Pressure 112/72 01/26/2025 1:10 PM CDT Pulse 71 01/26/2025 1:10 PM CDT Temperature - - Respiratory Rate - - Oxygen Saturation 97% 01/26/2025 1:10 PM CDT Inhaled Oxygen Concentration - - Weight 92.5 kg (203 lb 14.4 oz) 01/26/2025 1:10 PM CDT Height 167.6 cm (5' 6) 01/26/2025 1:10 PM CDT Body Mass Index 32.91 01/26/2025 1:10 PM CDT documented in this encounter Progress Notes * Tone Mishra MD - 01/26/2025 1:45 PM CDT [facility] FOLLOW UP 01/26/2025 Charlene Chen is a 69 y.o. female who presents for follow up of atrial flutter and nonischemic cardiomyopathy. This is a patient that I saw in the hospital at [facility] in January of 2017. She was in the hospital because of symptomatic nephrolithiasis and was found to be tachycardic. She was felt to be in atypical atrial flutter and was treated with beta-blockers and did convert to sinus rhythm. She was managed with carvedilol and enalapril. . Following that there were a couple of hospitalizations with decompensated CHF which resulted in transitioning her from her JOSIE-inhibitor to Entresto. Follow-up echocardiograms did demonstrate improvement in her LV function with an ejection fraction of 44%. In follow-up she was also found to have sleep apnea and has been placed on CPAP treatment. Because of continuing and worsening shortness of breath the patient was brought for an esophageal echo inFebruary of 2019. The study demonstrated very poor left ventricular systolic function her ejection fraction looks like it was about 25% and she had severe mitral valve regurgitation. She was referred down to the valve Clinic at [facility]. 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 Following this event echocardiography done at [facility] demonstrated significant improvement in her ejection fraction at 40-45%. She returns to the office today for scheduled office follow-up. She is under lot of stress as I mentioned in my last note she is taking care of a couple of young grandchildren who were taken away from her daughter because of alcoholism and drug abuse. In addition to that her from lung cancer about 2 months ago. She objectively is doing relatively well she has a variety of sympt oms that are not cardiac in nature. She has some nonexertional left lower inframammary chest pain that comes and goes in a on predictable fashion she also has some episodes of lightheadedness and occasionally the sense of presyncope. She has not had a syncopal episode. Her EKG in the office shows sinus rhythm with bifascicular block. REVIEW OF SYSTEMS General ROS: negative for - chills, fatigue, fever, malaise, night sweats, weight gain or weight loss Psychological ROS: negative for - anxiety, depression, memory difficulties or sleep disturbances Ophthalmic ROS: negative for - blurry vision, decreased vision, loss of vision or scotomata ENT ROS: negative for - epistaxis, headaches, hearing change, nasal congestion, nasal discharge, sore throat, vertigo or visual changes Hematological and Lymphatic ROS: negative for - bleeding problems, blood clots, bruising, fatigue or weight loss Endocrine ROS: negative for - hot flashes, palpitations, polydipsia/polyuria or unexpected weight changes Respiratory ROS: negative for - cough, hemoptysis, orthopnea, shortness of breath, tachypnea or wheezing Cardiovascular ROS: negative for - chest pain, dyspnea on exertion, edema, irregular heartbeat, loss of consciousness, murmur, orthopnea, palpitations, paroxysmal nocturnal dyspnea, rapid heart rate or shortness of breath Gastrointestinal ROS: negative for - abdominal pain, appetite loss, blood in stools, constipation, diarrhea, gas/bloating, heartburn, hematemesis, melena or nausea/vomiting Genito-Urinary ROS: negative for - dysuria, erectile dysfunction or hematuria Musculoskeletal ROS: negative for - joint pain, muscle pain or muscular weakness Dermatological ROS: negative for dry skin, eczema, pruritus and rash HOME MEDICATIONS Current Outpatient Medications: albuterol 2.5 mg /3 mL (0.083 %) nebulizer solution, as needed , Disp: , Rfl: albuterol HFA (PROVENTIL HFA,VENTOLIN HFA,PROAIR HFA) 90 mcg/actuation inhaler, INHALE 2 PUFFS BY MOUTH EVERY 4 6 HOURS NEEDED FOR SHORTNESS OF BREATH, Disp: , Rfl: atorvastatin (LIPITOR) 40 mg tablet, , Disp: , Rfl: buPROPion XL (WELLBUTRIN XL) 150 mg 24 hr tablet, Take 1 tablet (150 mg total) by mouth every morning, Disp: , Rfl: carvediloL (COREG) 25 mg tablet, TAKE 0.5 TABLET BY MOUTH 2 TIMES A DAY WITH MEALS, Disp: 90 tablet, Rfl: 0 cyclobenzaprine (FLEXERIL) 10 mg tablet, Take 10 mg by mouth 2 (two) times a day as needed (Patientnot taking: Reported on 07/19/2024), Disp: , Rfl: doxycycline 100 mg tablet, Take 100 mg by mouth every 12 (twelve) hours (Patient not taking: Reported on 07/19/2024), Disp: , Rfl: Entresto 49-51 mg tablet, TAKE 1 TABLET BY MOUTH TWICE A DAY, Disp: 60 tablet, Rfl: 11 ferrous sulfate 325 mg (65 mg of elemental iron) tablet, Take 65 mg of elemental iron by mouth 2 (two) times a day (Patient not taking: Reported on 07/19/2024), Disp: , Rfl: fluticasone propionate (FLONASE) 50 mcg/actuation nasal spray, 2 sprays daily, Disp: , Rfl: FUROSEMIDE ORAL, Take 20 mg by mouth 2 (two) times a day, Disp: , Rfl: guaiFENesin-codeine (GUAITUSS AC) liquid 100-10 mg/5 mL, , Disp: , Rfl: HYDROcodone-acetaminophen (NORCO) 5-325 mg per tablet, Take 1 tablet by mouth every 6 (six) hours as needed (Patient not taking: Reported on 07/19/2024), Disp: , Rfl: insulin lispro (HumaLOG, ADMELOG) 100 unit/mL injection, Inject under the skin 3 (three) times a day before meals , Disp: , Rfl: isosorbide mononitrate ER (IMDUR) 30 mg 24 hr tablet, Take 1 tablet (30 mg total) by mouth daily (Patient not taking: Reported on 07/19/2024), Disp: 30 tablet, Rfl: 3 melatonin 5 mg tablet, , Disp: , Rfl: nitroglycerin (NITROSTAT) 0.4 mg SL tablet, Place 1 tablet (0.4 mg total) under the tongue every 5 (five) minutes as needed for chest pain May repeat dose q 5 min, up to 3 doses total, Disp: 30 tablet, Rfl: 0 nystatin powder, APPLY TOPICALLY 3 TIMES A DAY, Disp: , Rfl: Ozempic 0.25 mg or 0.5 mg(2 mg/1.5 mL) pen injector injection, , Disp: , Rfl: pregabalin (LYRICA) 150 mg capsule, Take 150 mg by mouth 2 (two) times a day (Patient not taking: Reported on 07/19/2024), Disp: , Rfl: rivaroxaban (Xarelto) 20 mg tablet, TAKE 1 TABLET BY MOUTH EVERY DAY (Patient not taking: Reported on 07/19/2024), Disp: 90 tablet, Rfl: 0 rOPINIRole (REQUIP) 3 mg tablet, Take 3 mg by mouth nightly (Patient not taking: Reported on 07/19/2024), Disp: , Rfl: 1 sertraline (ZOLOFT) 100 mg tablet, TAKE 1&1/2 TABLETS BY MOUTH EVERY DAY (Patient not taking: Reported on 07/19/2024), Disp: , Rfl: SYMBICORT 160-4.5 mcg/actuation inhaler, Inhale 2 puffs 2 (two) times a day, Disp: , Rfl: 11 TRESIBA 100 unit/mL (3 mL) pen for injection, , Disp: , Rfl: vibegron (GEMTESA ORAL), Take by mouth, Disp: , Rfl: Current Facility-Administered Medications: perflutren protein-a (OPTISON) 3 mL in sodium chloride 0.9% 8 mL syringe, 1-8 mL, intravenous, Oncein imaging, Sydnie Rodriguez NP LABS AND OTHER DIAGNOSTIC TESTS Lab Results Component Value Date CHOL 182 05/20/2020 Lab Results Component Value Date HDL 67 05/20/2020 Lab Results Component Value Date LDLCALC 99 05/20/2020 Lab Results Component Value Date TRIG 82 05/20/2020 Lab Results Component Value Date CHOLHDL 3 05/20/2020 Lab Results Component Value Date WBC 6.6 05/21/2021 HGB 14.6 05/21/2021 HCT 44.4 05/21/2021 MCV 86.4 05/21/2021 No lab exists for component: LABALBU PHYSICAL EXAM Vitals BP 112/72 (BP Location: Right arm, Patient Position: Sitting) Pulse 71 Ht 167.6 cm (5' 6) Wt 92.5 kg (203 lb 14.4 oz) SpO2 97% BMI 32.91 kg/m?? Physical Examination: General appearance - alert, well appearing, and in no distress, oriented to person, place, and time and acyanotic, in no respiratory distress Mental status - affect appropriate to mood Eyes - extraocular eye movements intact, sclera anicteric, no pallor Ears - external earsappear normal, hearing grossly normal bilaterally Nose - normal and patent, no erythema or discharge Mouth - mucous membranes moist, pharynx appears normal, dental hygiene good and tongue normal Neck - supple, no significant neck masses, carotids upstroke normal bilaterally, no bruits, no JVD Chest - clear to auscultation, no wheezes, rales or rhonchi, symmetric air entry, no tachypnea, retractions or cyanosis Heart - normal rate, regular rhythm, normal S1, S2, very soft holosystolic murmur at the apex is noted, rubs, clicks or gallops, no JVD Abdomen - soft, nontender, nondistended, no masses or organomegaly bowel sounds normal Neurological - alert, oriented, normal speech, no focal findings or movement disorder noted Musculoskeletal - no joint tenderness, deformity or swelling, no muscular tenderness noted Extremities - peripheral pulses normal, mild bipedal edema no clubbing or cyanosis Skin - normal coloration and turgor, no rashes, no suspicious skin lesions noted ASSESSMENT Charlene was seen today for follow-up, atrial fibrillation and cardiomyopathy. Diagnoses and all orders for this visit: Chronic systolic CHF (congestive heart failure) (HCC) Cardiomyopathy, idiopathic (HCC) PLAN/RECOMMENDATIONS No change in medical regimen including carvedilol Entresto and isosorbide for her LV dysfunction. Will have the patient undergo a 48 hour Holter monitor because of her symptoms of near-syncope, dizziness and bifascicular block Appointment in 6 months or PRN . Tone Mishra MD documented in this encounter Plan of Treatment Upcoming Encounters Date Type Department Care Team (Latest Contact Info) Description 01/26/2025 2:15 PM CDT Ancillary Procedure [facility] Medical [facility] Cardiology [address] [place] [phone] Cardiomyopathy, idiopathic (HCC); Dizziness Pending Results Name Type Priority Associated Diagnoses Date /Time 48 HR Holter Monitor Cardiac Services Routine Cardiomyopathy, idiopathic (HCC) Dizziness 01/26/2025 1:43 PM CDT Scheduled Orders Name Type Priority Associated Diagnoses Orde r Schedule 48 HR Holter Monitor Cardiac Services Routine Cardiomyopathy, idiopathic (HCC) Dizziness Expected: 01/26/2025, Expires: 01/26/2026 documented as of this encounter Visit Diagnoses Diagnosis Chronic systolic CHF (congestive heart failure) (HCC)- Primary Cardiomyopathy, idiopathic (HCC) Other primary cardiomyopathies Dizziness Dizziness and giddiness Cardiomyopathy, idiopathic (HCC) Other primary cardiomyopathies Dizziness Dizziness and giddiness documented in this encounter Discontinued Medications Medication Sig Discontinue Reason Start Date End Da te cyclobenzaprine (FLEXERIL) 10 mg tablet Take 10 mg by mouth 2 (two) times a day as needed Patient Reported 08/11/2020 01/26/2025 doxycycline 100 mg tablet Take 100 mg by mouth every 12 (twelve) hours Patient Reported 07/14/2022 01/26/2025 ferrous sulfate 325 mg (65 mg of elemental iron) tabletIndications:Iron Deficiency Anemia Take 65 mg of elemental iron by mouth 2 (two) times a day Patient Reported 01/26/2025 HYDROcodone-acetaminoph en (NORCO) 5-325 mg per tablet Take 1 tablet by mouth every 6 (six) hours as needed Patient Reported 08/08/2020 01/26/2025 melatonin 5 mg tablet Patient Reported 06/06/2021 Ozempic 0.25 mg or 0.5 mg(2 mg/1.5 mL) pen injector injection Patient Reported 03/15/2021 01/26/2025 documented as of this encounter Care Teams Assistant Case Manager Relationship Specialty Start Date End Date Marek Treviño DO PCP - General 08/03/14 Shane Alaniz MD [address] [place] [address] Surgeon Cardiothoracic Surgery 05/24/20 Deonte Martini MD PhD [address] [place] [address] Referring Physician Cardiology 05/24/20 Tone Mishra MD [address] [address] Consulting Physician Cardiology 06/04/20 documented as of this encounter
--- OUTSIDE RECORDS SUMMARY | 2025-01-26 14:11 | XMS_ITS | Clinical Summary ---
Author Organization [facility] [address] Address [address] [place] [address] Care Team Providers Care Public Policy Analyst Name Role Phone Marek Treviño DO Primary Care Provider [phone] Shane Alaniz MD Unavailable [phone] Deonte Martini MD PhD Unavailable [phone] Tone Mishra MD Unavailable Allergies Active Allergy Reactions Criticality Noted Date [...] 08/29/2022 Assessment & Plan (08/29/2022 11:59 AM UPSETTER): Bilateral lower extremity edema with lipodermatosclerosis. Continue compression therapy. Lymphedema pump evaluation as above. Lymphedema 08/29/2022 Assessment & Plan (08/29/2022 11:59 AM UPSETTER): Patient has history of Lymphedema (I89.0). The patient has tried elevation, exercise, and compression without significant improvements and skin discoloration. Patient would benefit from a Lymphedema pump to be ordered through [email or web address] to help manage patient condition. Chronic systolic CHF (congestive heart failure) 06/14/2020 S/P mitral valve clip implantation 06/14/2020 Dizziness 06/14/2020 Mitral valve insufficiency 05/08/2020 Overview (05/08/2020): Added automatically from request for surgery [id number] Assessment & Plan (05/23/2020 12:33 PM UPSETTER): NYHA class IIIb symptom. TTE (03/2020, mean gradient 5mmHg) and RAS (04/2020, mod-severe MR pressure gradient 3mmHg). R/LHC performed 03/2020) - s/p Mitraclip procedure on 05/23/20 with 1 clip -asa, resume home Xarelto tomorrow -CXR and TTE POD1 Cardiomyopathy, idiopathic 07/29/2017 Morbid obesity with BMI of 40.0-44.9, adult 06/05 Assessment & Plan (05/23/2020 12:33 PM UPSETTER): BMI 41.89 -PT/OT -fall precautions -bariatric equipment if needed at discharge DM (diabetes mellitus) 03/12/2017 Assessment & Plan (05/23/2020 12:39 PM UPSETTER): - Reduce Lantus to 20 units for tonight only as NPO p MN - Humalog 8 units TID AC - MDSSI + qHS + 2am - Carb consistent diet Renal colic Kidney stone PAF (paroxysmal atrial fibrillation) Assessment & Plan (08/29/2022 11:59 AM UPSETTER): Stable continue Xarelto 20 mg. DVT (deep venous thrombosis) Atrial flutter Assessment & Plan (05/23/2020 12:29 PM UPSETTER): Resume home xarelto tomorrow (05/24) - continue asa - Telemetry Exertional chest pain Peripheral artery disease Chronic bronchitis Assessment & Plan (05/23/2020 12:32 PM UPSETTER): Continue home inhalers Bipolar 1 disorder, depressed Heart failure Assessment & Plan (05/23/2020 12:32 PM UPSETTER): LVEF 42% w/ GIIDD. on TAVR TTE (03/2020). - continue regimen of carvedilol, entresto - 40 IV lasix tonight - strict I/Os, daily weights, q12 BMP Preop cardiovascular exam Dyspnea Resolved Problems Problem Noted Date Diagnosed Date Resolved Date Heart attack 06/23/2017 Encounters Date Type Department Care Team Description 01/26/2025 2:15 PM CDT Ancillary Procedure [facility] Medical [facility] Cardiology [address] [facility] [address] [place] [phone] Cardiomyopathy, idiopathic (HCC); Dizziness 01/26/2025 1:45 PM CDT Office Visit [facility] Cardiology [address] [place] [phone] Tone Mishra MD Chronic systolic CHF (congestive heart failure) (HCC) (Primary Dx); Cardiomyopathy, idiopathic (HCC); Dizziness from Last 3 Months Immunizations Immunization Administration Dates Next Due Influenza, Quadrivalent, Hig h Dose, Preservative Free, Intrr 05/24/2020 Surgical History Surgery Date Site/Laterality Comments CHOLECYSTECTOMY GASTRIC BYPASS HYSTERECTOMY CARDIAC CATHETERIZATION REPLACEMENT TOTAL KNEE Right Medical History Medical History Date Comments Renal colic Diabetes mellitus (HCC) DVT (deep venous thrombosis) (HCC) Exertional chest pain CHF (congestive heart failure) (HCC) Peripheral artery disease Chronic bronchitis (HCC) Bipolar 1 disorder, depressed (HCC) Hypertension Heart failure (HCC) Heart attack (HCC) MR (mitral regurgitation) NICM (nonischemic cardiomyopathy) (HCC) NICHOLE (obstructive sleep apnea) Heart murmur TIA (transient ischemic attack) COPD (chronic obstructive pulmonary disease) (HC C) Kidney stone PAF (paroxysmal atrial fibrillation) (HCC) Atrial flutter (HCC) Type 2 diabetes mellitus (HCC) Family [...] on file Legal Sex Female 3:33 AM UPSETTER Gender Identity Not on file Sexual Orientation Not on file Obstetrics History Last Filed Vital Signs Vital Sign Reading Time Taken Comments Blood Pressure 112/72 01/26/2025 1:10 PM CDT Pulse 71 01/26/2025 1:10 PM CDT Temperature 36.1 C (96.9 F) 06/26/2020 3:00 PM UPSETTER Respiratory Rate 18 06/15/2020 4:15 PM UPSETTER Oxygen Saturation 97% 01/26/2025 1:10 PM CDT Inhaled Oxygen Concentration - - Weight 92.5 kg (203 lb 14.4 oz) 01/26/2025 1:10 PM CDT Height 167.6 cm (5' 6) 01/26/2025 1:10 PM CDT Body Mass Index 32.91 01/26/2025 1:10 PM CDT Plan of Treatment Upcoming Encounters Date Type Department Care Team (Latest Contact Info) Description 01/26/2025 2:15 PM CDT Ancillary Procedure [facility] Medical Group Cardiology [address] [place] [address] Cardiomyopathy, idiopathic (HCC); Dizziness Health Maintenance Due Date Last Done Comments [...] eGFR 05/21/2022 05/21/2021, 03/13/2020 Influenza Vaccine (#1) 2025 0, 05/07/2019, 08/07/2018, Additional history exists Lipid Panel 07/19/2025 07/19/2024, 07/06, 06/13/2021, Additional history exists Medical Devices Implanted Type Area Automatic Spinning Lathe Setter Device Identifier Shelf Expiration Date Model / Serial / Lot [employer] [id number] Mitraclip G4 Clip Delivery System Ntw - [id number] Implanted:Qty : 1 on 05/23/2020 by Deonte Martini MD PhD at [facility] Clip N/A: Mitral Valve [employer] 09/28/2020 [id number] / / [id number] [employer] [id number] Mitraclip G4 Implant System - [id number] Implanted:Qty : 1 on 05/23/2020 by Deonte Martini MD PhD at [facility] [employer] [id number] 06/04/2030 [id number] 100 / / VIRTUAL ITEM Procedures Procedure Name Priority Date/Time Associated Diagnosis Comments POCT LIPID PANEL Routine 07/19/2024 4:05 PM UPSETTER Need for lipid screening EGFR Routine 05/21/2021 3:16 PM UPSETTER S/P mitral valve clip implantation POCT HEMOGLOBIN A1C Routine 05/14/2020 9 :25 AM UPSETTER from Last 3 Months or Most Recently Relevant to Health Maintenance Results * POCT lipid panel (07/19/2024 4:05 PM UPSETTER) Cholesterol, POC 167 mg/dL Comment:GLU = 209 HDL, POC 58 mg/dL Triglycerides, POC 82 mg/dL LDL Cholesterol POC 93 mg/dL Chol/HDL Ratio, POC 1.6 Non-HDL Cholesterol, POC 109 mg/dL Cholesterol Total, POC 167 mg/dL Capillary blood 07/19/2024 4 :05 PM UPSETTER us Tone Mishra MD POINT OF CARE TEST ORDER JOSE Final Result * eGFR (05/21/2021 3:16 PM UPSETTER) eGFR 61 mL/min/1.7 3 m2 [facility] Comment: Interpretive Data Reference Interval Normal >/= [...] last reviewed 2020 Blood 05/21/2021 3:16 PM UPSETTER 05/21/2021 4:03 PM UPSETTER us Sydnie Rodriguez NP LAB BLOOD ORDERABLES Final R esult Performing Organization Address City/[facility]/ZIP Co de Phone Number [facility] [address] [facility]. Department [employer] [place] [address] * (ABNORMAL) POCT hemoglobin A1c (05/14/2020 9:25 AM UPSETTER) [facility] Hgb A1C, POC 8.5(H) 4.0 - 6.0 % [facility] Est Average Gluc POC 197 mg/dL [facility] Comment: The ADA recommends reporting an estimated Average Glucose (eAG) with all Hemoglobin A1c results using the equation derived from a study of 507 normal and diabetic adults. Minority populations were underrepresented and children were not included. (Diabetes Care 31:0743-6570, 2008). The eAG is not equivalent to a fasting glucose. Blood specimen (specimen) 05/14/2020 9:25 AM UPSETTER 05/14/2020 9:25 AM UPSETTER us Deonte Martini MD PhD POINT OF CARE TEST ORDERAB LES Final Result Performing Organization Address City/[facility]/ZIP Co de Phone Number [facility] Department [employer] [place] [address] from Last 3 Months or Most Recently Relevant to Health Maintenance Insurance [place] [phone] [place] [id number] [employer] SIG [id number] MEDICARE ADVANTAGE MEDICARE ADVANTAGE Advance Directives For more information, please contact: [phone] * Full Code (Latest Code Status on File) Date Activated Date Inactivated Comments 05/20/2020 3:05 PM 05/24/2020 9:06 PM * Full Code Date Activated Date Inactivated Comments 03/27/2020 11:48 AM 03/27/2020 8:52 PM Care Teams Public Policy Analyst Relationship Specialty Start Date End Date Marek Treviño DO PCP - General 08/03/14 Shane Alaniz MD [address] [place] [address] Surgeon Cardiothoracic Surgery 05/24/20 Deonte Martini MD PhD [address] [place] [address] Referring Physician Cardiology 05/24/20 Tone Mishra MD [address] [address] Consulting Physician Cardiology 06/04/20
--- OUTSIDE RECORDS SUMMARY | 2025-01-26 14:11 | XMS_ITS | Clinical Summary ---
Author Organization [facility] Address [address] [place] [address] Care Team Providers Care Job Compositor Name Role Phone Marek Treviño DO Primary Care Provider [phone] Source Comments [facility],non-owned Affiliates and Associated Physician Practices is amultiple site organization consisting of ambulatory clinics and hospital sitesin [place], [place], [place] and [place]. This disclosure is being madepursuant to the Care Everywhere program and may not contain all information available regarding this patient. Last updated 18.[facility] Allergies Active Allergy Reactions Criticality Noted Date Comments Diphenhydramine Palpitations 12/13/2014 Latex Rash Low 12/13/2014 Penicillins Rash Low 12/13/2014 Medications * This document contains information received from the source organization and may not represent a complete record from that organization. * Be aware that medications may not be up to date on this document. Alwaysverify current medications with the patient. divalproex DR (DEPAKOTE) 500 MG tablet Take 500 mg by mouth 2 times daily Active divalproex DR (DEPAKOTE) 250 MG tablet Take by mouth once daily Active FLUoxetine (PROZAC) 20 MG capsule Take 20 mg by mouth 3 times daily Active levothyroxine (SYNTHROID) 200 MCG tablet Take 200 mcg by mouth daily before breakfast Active furosemide (LASIX) 20 MG tablet Take 20 [...] = 0.6 oz pur e alcohol) Comments Unknown Sex and Gender Information Value Date Recorded Sex Assigned at Not on file Legal Sex Female 2:59 PM CDT Gender Identity Not on file Sexual Orientation Not on file Last Filed Vital Signs Vital Sign Reading Time Taken Comments Blood Pressure 153/87 05/25/2013 4:21 PM COPYING MACHINE MECHANIC Pulse 89 05/25/2013 4:21 PM COPYING MACHINE MECHANIC Temperature - - Respiratory Rate 16 05/25/2013 4:21 PM COPYING MACHINE MECHANIC Oxygen Saturation - - Inhaled Oxygen Concentration - - Weight 108.9 kg (240 lb) 12/13/2014 8:07 AM CDT Height 167.6 cm (5' 6) 12/13/2014 8:07 AM CDT Body Mass Index [...] VACCINE (1 of 2) 2005 COVID-19 VACCINE (1 - 2023-2 5 season) 2024 DEPRESSION SCREENING 07/06/2024 MEDICARE AWV CALENDAR YEAR 2024 INFLUENZA VACCINE (#1) 2025 Respiratory Syncytial Virus (RSV) Vaccine Pt: or [...] to complete this topic MENINGOCOCCAL (Group B) VACC INE SHARED DECISION-MAKING Aged Out No longer eligibl e based on patient's age to complete this topic MENINGOCOCCAL GROUPS A/C/Y/W VACCINE Aged Out No longer eligible b ased on patient's age to complete this topic Insurance [facility] Address: [address] [place] [address] MANAGED MEDICARE ADV SELF PAY NO INSURANCE Member Subscriber Plan / Payer (Ef fective for All Dates) Name:Charlene Chen Member ID:Not on file Relation to Subscriber:Not on file Name:GUSTAVOCHARLENE MARKHAM Subscriber ID:Not on file (Home) Address: [address] [place], [place] [id number] Payer ID:Not on file Group ID:Not on file Type:Self Pay Address: [facility] MANAGED MEDICARE ADV SELF PAY NO INSURANCE Member Subscriber Plan / Payer (Ef fective for All Dates) Name:Charlene Chen Member ID:Not on file Relation to Subscriber:Not on file Name:GUSTAVOCHARLENE Subscriber ID:Not on file (Home) Address: [address] [place], [place] [id number] Payer ID:Not on file Group ID:Not on file Type:Self Pay Address: [facility] MANAGED MEDICARE ADV Care Teams Job Compositor Relationship Specialty Start Date End Date Marek Treviño DO PCP - General Internal Medicine 12/13/14
[2025-01-26 14:42] LABS: Alanine Aminotransferase 36 U/L (6-35); Albumin Level 4.1 g/dL (3.5-5.1); Alkaline Phosphatase 98 U/L (38-126); Anion Gap 6 mmol/L (4-12); Aspartate Amino Transferase 37 U/L (14-36); Bilirubin,Total 0.5 mg/dL (0.2-1.3); Blood Urea Nitrogen 25 mg/dL (7-17); Calcium 9.9 mg/dL (8.4-10.2); Carbon Dioxide 27 mmol/L (22-30); Chloride 107 mmol/L (98-107); Cholesterol 177 mg/dL (0-200); Estimated Glomerular Filt Rate 58; Glucose 117 mg/dL (65-110); HDL Direct 67 mg/dL; Potassium 4.8 mmol/L (3.4-5.0); Sodium 140 mmol/L (137-145); Total Protein 7.1 g/dL (6.3-8.2); Triglycerides 72 mg/dL (<150)
[2025-01-26 15:17] LABS: Thyroid Stimulating Hormone 2.090 uIU/mL (0.465-4.680)
[2025-01-26 15:36] LABS: Vitamin B12 338.0 pg/mL (239-931)
[2025-01-26 17:07] LABS: MALB Creatinine Ratio 19.2 mg/g (0-30)
[2025-01-26 17:13] LABS: Free T4 Free Thyroxine 1.05 ng/dL (0.78-2.19)
== END 2025-01-26 13:56 | disposition home or self-care (01) ==
PROVIDERS: PCP Internal Medicine; Visit Provider Internal Medicine Endocrinology, Diabetes & Metabolism
DX: E11.65 Type 2 diabetes mellitus with hyperglycemia (principal); E78.5 Hyperlipidemia, unspecified; I10 Essential (primary) hypertension; E55.9 Vitamin D deficiency, unspecified; R79.89 Other specified abnormal findings of blood chemistry; Z79.4 Long term (current) use of insulin
CPT/HCPCS: 36415; 80053; 80061; 82043; 82306; 82607; 84439; 84443

== ENCOUNTER 2025-04-29 08:35 | Outpatient (CLI) | payer MEDICARE, SELFPAY ==
--- NOTE | ~2025-04-29 | CT_ITS ---
EXAMINATION: CT diagnostic chest wo con DATE: 04/29/2025 09:03 INDICATION: R91.1 - Solitary pulmonary nodule TECHNIQUE: Computed tomography (CT) of the chest was performed without intravenous contrast. Additional 3D reconstructions utilizing coronal maximum intensity projection (MIP) were performed. Automated exposure control and iterative reconstruction technique were employed. The dose-length product was 78 .53 mGy-cm. COMPARISON: CT chest dated 04/10/[address] abdomen and pelvis dated 08/26/2024 FINDINGS: Calcified left lower lobe nodule consistent with old granulomatous disease. Multiple scattered noncalcified pulmonary nodules which do not appear appreciably changed when compared with the prior CT from 04/10/2022. The largest include a 5 mm pleural-based nodule at the posterior right lower lobe and a 5 mm triangular likely intrafissural lymph node along the right minor fissure which was noted on the more recent CT of the abdomen and pelvis. No new or enlarging pulmonary nodules, pneumonia, pulmonary edema or pleural effusion. Heart size normal. Atherosclerotic coronary artery calcification. Mitraclip along the mitral valve plane. No pericardial effusion. Thoracic aorta is normal in caliber. No pathologically enlarged thoracic lymphadenopathy. Postoperative change of prior gastric bypass procedure. Cholecystectomy clips the gallbladder fossa. Moderate lower cervical and mild thoracic spondylosis. IMPRESSION: 1. Stable appearance since 2021 in multiple scattered small likely benign bilateral pulmonary nodules, the largest measuring up to 5 mm. Reviewed, dictated and finalized at location A. IMPRESSION: 1. Stable appearance since 2021 in multiple scattered small likely benign bilat eral pulmonary nodules, the largest measuring up to 5 mm.
--- OUTSIDE RECORDS SUMMARY | 2025-04-29 08:39 | XMS_ITS | Clinical Summary ---
Author Organization [facility] Address [address] [place] [address] Care Team Providers Care Director Of Retail Marketing Name Role Phone Marek Treviño DO Primary Care Provider [phone] Source Comments [facility],non-owned Affiliates and Associated Physician Practices is amultiple site organization consisting of ambulatory clinics and hospital sitesin [place], [place], [place] and [place]. This disclosure is being madepursuant to the Care Everywhere program and may not contain all information available regarding this patient. Last updated 18.[facility] Allergies Active Allergy Reactions Criticality Noted Date [...] Comments Blood Pressure 153/87 05/25/2013 4:21 PM COMMERCIAL FISHER Pulse 89 05/25/2013 4:21 PM COMMERCIAL FISHER Temperature - - Respiratory Rate 16 05/25/2013 4:21 PM COMMERCIAL FISHER Oxygen Saturation - - Inhaled Oxygen Concentration [...] 2005 ZOSTER VACCINE (1 of 2) 2005 DEPRESSION SCREENING 07/06/2024 MEDICARE AWV CALENDAR YEAR 2024 COVID-19 VACCINE (1 - 2023-2 5 season) 2025 INFLUENZA VACCINE (#1) 2025 Respiratory Syncytial Virus [...] age to complete this topic Insurance [employer] MANAGED MEDICARE ADV SELF PAY NO INSURANCE Member Subscriber Plan / Payer (Ef fective for All Dates) Name:Charlene Chen Member ID:Not on file Relation to Subscriber:Not on file Name:GUSTAVOCHARLENE MARKHAM Subscriber ID:Not on file (Home) Address: [address] [place], [place] [id number] Payer ID:Not on file Group ID:Not on file Type:Self Pay Address: [facility] MANAGED MEDICARE ADV SELF PAY NO INSURANCE Member Subscriber Plan / Payer (Ef fective for All Dates) Name:Charlene Chen Member ID:Not on file Relation to Subscriber:Not on file Name:GUSTAVOCHARLENE Subscriber ID:Not on file (Home) Address: [address] [place], [place] [id number] Payer ID:Not on file Group ID:Not on file Type:Self Pay Address: [facility] MANAGED MEDICARE ADV Care Teams Director Of Retail Marketing Relationship Specialty Start Date End Date Marek Treviño DO PCP - General Internal Medicine 12/13/14
--- OUTSIDE RECORDS SUMMARY | 2025-04-29 08:39 | XMS_ITS | Clinical Summary ---
Author Organization [facility] [address] Address [address] [place] [address] Care Team Providers Care Through Freight Engineer Name Role Phone GeorginaMarek hurst DO Primary Care Provider Shane Alaniz MD Unavailable [phone] Deonte Martini MD PhD Unavailable [phone] Tone Mishra MD Unavailable [phone] Allergies Active Allergy Reactions Criticality Noted Date [...] (Xarelto) 20 mg tabletIndication s:Atypical atrial flutter (HCC) TAKE 1 TABLET BY MOUTH EVERY DAY 90 tablet 3 Active carvediloL (COREG) 25 mg tablet TAKE 0.5 TABLET BY MOUTH 2 TIMES A DAY WITH MEALS 90 tablet 3 Active vibegron (GEMTESA ORAL) Take by mouth A ctive Hospital, Clinic, or Other Facility Administered Medication Ordered Dose Route Frequency Start Date End Date Status perflutren protein-a (OPTISON) 3 mL in sodium chloride 0.9% 8 mL syringe 1 - 8 mL IV Once in imaging 05/21/2021 Active Active Problems Problem Noted Date Diagnosed Date Venous insufficiency 08/29/2022 Assessment & Plan (08/29/2022 11:59 AM PRODUCT SCIENTIST): Bilateral lower extremity edema with lipodermatosclerosis. Continue compression therapy. Lymphedema pump evaluation as above. Lymphedema 08/29/2022 Assessment & Plan (08/29/2022 11:59 AM PRODUCT SCIENTIST): Patient has history of Lymphedema (I89.0). The patient has tried elevation, exercise, and compression without significant improvements and skin discoloration. Patient would benefit from a Lymphedema pump to be ordered through [facility] to help manage patient condition. Chronic systolic CHF (congestive heart failure) 06/14/2020 S/P mitral valve clip implantation 06/14/2020 Dizziness 06/14/2020 Mitral valve insufficiency 05/08/2020 Overview (05/08/2020): Added automatically from request for surgery [id number] Assessment & Plan (05/23/2020 12:33 PM PRODUCT SCIENTIST): NYHA class IIIb symptom. TTE (03/2020, mean gradient 5mmHg) and RAS (04/2020, mod-severe MR pressure gradient 3mmHg). R/LHC performed 03/2020) - s/p Mitraclip procedure on 05/23/20 with 1 clip -asa, resume home Xarelto tomorrow -CXR and TTE POD1 Cardiomyopathy, idiopathic 07/29/2017 Morbid obesity with BMI of 40.0-44.9, adult 06/05 Assessment & Plan (05/23/2020 12:33 PM PRODUCT SCIENTIST): BMI 41.89 -PT/OT -fall precautions -bariatric equipment if needed at discharge DM (diabetes mellitus) 03/12/2017 Assessment & Plan (05/23/2020 12:39 PM PRODUCT SCIENTIST): - Reduce Lantus to 20 units for tonight only as NPO p [place] - Humalog 8 units TID AC - MDSSI + qHS + 2am - Carb consistent diet Renal colic Kidney stone PAF (paroxysmal atrial fibrillation) Assessment & Plan (08/29/2022 11:59 AM PRODUCT SCIENTIST): Stable continue Xarelto 20 mg. DVT (deep venous thrombosis) Atrial flutter Assessment & Plan (05/23/2020 12:29 PM PRODUCT SCIENTIST): Resume home xarelto tomorrow (05/24) - continue asa - Telemetry Exertional chest pain Peripheral artery disease Chronic bronchitis Assessment & Plan (05/23/2020 12:32 PM PRODUCT SCIENTIST): Continue home inhalers Bipolar 1 disorder, depressed Heart failure Assessment & Plan (05/23/2020 12:32 PM PRODUCT SCIENTIST): LVEF 42% w/ GIIDD. on TAVR TTE [...] History Date Comments Renal colic Diabetes mellitus DVT (deep venous thrombosis) Exertional chest pain CHF (congestive heart failure) (HCC) Peripheral artery disease Chronic bronchitis (HCC) Bipolar 1 disorder, depressed (HCC) Hypertension Heart failure Heart attack (HCC) MR (mitral regurgitation) NICM (nonischemic cardiomyopathy) (HCC) NICHOLE (obstructive sleep apnea) Heart murmur TIA (transient ischemic attack) COPD (chronic obstructive pulmonary disease) Kidney stone PAF (paroxysmal atrial fibrillation) Atrial flutter (HCC) Type 2 diabetes mellitus Family History Medical History Relation Name Comments [...] on file Legal Sex Female 3:33 AM PRODUCT SCIENTIST Gender Identity Not on file Sexual Orientation Not on file Obstetrics History Last Filed Vital Signs Vital Sign Reading Time Taken Comments Blood Pressure 112/72 01/26/2025 1:10 PM CDT Pulse 71 01/26/2025 1:10 PM CDT Temperature 36.1 C (96.9 F) 06/26/2020 3:00 PM PRODUCT SCIENTIST Respiratory Rate 18 06/15/2020 4:15 PM PRODUCT SCIENTIST Oxygen Saturation 97% 01/26/2025 1:10 PM CDT Inhaled Oxygen Concentration - - Weight 92.5 kg (203 lb 14.4 oz) 01/26/2025 1:10 PM CDT Height 167.6 cm (5' 6) 01/26/2025 1:10 PM CDT Body Mass Index 32.91 01/26/2025 1:10 PM CDT Plan of Treatment Health Maintenance Due [...] history exists Medical Devices Implanted Type Area Utility Porter Device Identifier Shelf Expiration Date Model / Serial / Lot [employer] [id number] Mitraclip G4 Clip Delivery System Ntw - [id number] Implanted:Qty : 1 on 05/23/2020 by Deonte Martini MD PhD at [facility] Clip N/A: Mitral Valve [employer] 09/28/2020 [id number] / / [id number] [employer] [id number] Mitraclip G4 Implant System - [id number] Implanted:Qty : 1 on 05/23/2020 by Deonte Martini MD PhD at [facility] [employer] [id number] 06/04/2030 [id number] / / VIRTUAL ITEM Procedures Procedure Name Priority Date/Time Associated Diagnosis Comments POCT LIPID PANEL Routine 07/19/2024 4:05 PM PRODUCT SCIENTIST Need for lipid screening EGFR Routine 05/21/2021 3:16 PM PRODUCT SCIENTIST S/P mitral valve clip implantation POCT HEMOGLOBIN A1C Routine 05/14/2020 9 :25 AM PRODUCT SCIENTIST from Last 3 Months or Most Recently Relevant to Health Maintenance Results * POCT lipid panel (07/19/2024 4:05 PM PRODUCT SCIENTIST) Cholesterol, POC 167 mg/dL Comment:GLU = 209 HDL, POC 58 mg/dL Triglycerides, POC 82 mg/dL LDL Cholesterol POC 93 mg/dL Chol/HDL Ratio, POC 1.6 Non-HDL Cholesterol, POC 109 mg/dL Cholesterol Total, POC 167 mg/dL Capillary blood 07/19/2024 4 :05 PM PRODUCT SCIENTIST us Tone Mishra MD POINT OF CARE TEST ORDER JOSE Final Result * eGFR (05/21/2021 3:16 PM PRODUCT SCIENTIST) Pathologist [facility] eGFR 61 mL/min/1.7 3 m2 [facility] Comment: Interpretive Data Reference Interval Normal [...] last reviewed 2020 Blood 05/21/2021 3:16 PM PRODUCT SCIENTIST 05/21/2021 4:03 PM PRODUCT SCIENTIST Sydnie Rodriguez MONOTYPE MECHANIC LAB BLOOD ORDERABLES Final R esult Performing Organization Address City/[facility] Co de Phone Number [facility] [address] [facility] [place] [employer] [place] [address] * (ABNORMAL) POCT hemoglobin A1c (05/14/2020 9:25 AM PRODUCT SCIENTIST) Hgb A1C, POC 8.5(H) 4.0 - 6.0 % [facility] Est Average Gluc POC 197 mg/dL [facility] Comment: The ADA recommends reporting an estimated Average Glucose (eAG) with all Hemoglobin A1c results using the equation derived from a study of 507 normal and diabetic adults. Minority populations were underrepresented and children were not included. (Diabetes Care 31:4094-3328, 2008). The eAG is not equivalent to a fasting glucose. Blood specimen (specimen) 05/14/2020 9:25 AM PRODUCT SCIENTIST 05/14/2020 9:25 AM PRODUCT SCIENTIST Deonte Martini MD PhD POINT OF CARE TEST ORDERAB LES Final Result [facility] [place] [employer] [place] [address] from Last 3 Months or Most Recently Relevant to Health Maintenance Insurance MEDICARE ADVANTAGE [facility] Address: [address] [address] [place] [address] UHC MEDICARE ADVANTAGE MEDICARE [employer]ET[employer] SIG [id number] [facility] Address: [address] [address] [place] [address] [facility] Address: [address] [address] [place] [address] Advance Directives For more information, please contact: [phone] * Full Code (Latest Code Status on File) Date Activated Date Inactivated Comments 05/20/2020 3:05 PM 05/24/2020 9:06 PM * Full Code Date Activated Date Inactivated Comments 03/27/2020 11:48 AM 03/27/2020 8:52 PM Care Teams Through Freight Engineer Relationship Specialty Start Date End Date Marek Treviño DO PCP - General 08/03/14 Shane Alaniz MD [address] [place] [address] Surgeon Cardiothoracic Surgery 05/24/20 Deonte Martini MD PhD [address] [place] [address] Referring Physician Cardiology 05/24/20 Tone Mishra MD [address] [address] Consulting Physician Cardiology 06/04/20
--- OUTSIDE RECORDS SUMMARY | 2025-04-29 08:39 | XMS_ITS | Encounter Summary ---
Author Organization [facility] Healthcare Address [address] [place] [address] Care Team Providers Care Power Shovel Mechanic Name Role Phone Marek Treviño DO Primary Care Provider Shane Alaniz MD Unavailable [phone] Deonte Martini MD PhD Unavailable [phone] Tone Mishra MD Unavailable [phone] Encounter Details Date Type Department Care Team (Late st Contact Info) Description 08/26/2024 Orders Only [facility] Health Information Management [address] [place] [id number] Scanning, Provider Social History Tobacco Use Types Packs/Day Years Used Date Smoking Tobacco: Never Smokeless Tobacco: Never Alcohol Use Standard Drinks/Week Comments No 0 (1 standard drink = 0.6 oz pur e alcohol) Comments No Sex and Gender Information Value Date Recorded Sex Assigned at Not on file Legal Sex Female 3:33 AM GAS LINE REPAIRER Gender Identity Not on file Sexual Orientation Not on file documented as of this encounter Plan of Treatment Not on file documented as of this encounter Procedures Procedure Name Priority Date/Time Associated Diagnosis Comments SCAN - RADIOLOGY/IMAGING 08/26/2024 documented in this encounter Results * SCAN - RADIOLOGY/IMAGING (08/26/2024) Anatomical Region Laterality Modality Other us Provider Scanning Final Result documented in this encounter Visit Diagnoses Not on filedocumented in this encounter Care Teams Power Shovel Mechanic Relationship Specialty Start Date End Date Marek Treviño DO PCP - General 08/03/14 Shane Alaniz MD [address] [place] [address] Surgeon Cardiothoracic Surgery 05/24/20 Deonte Martini MD PhD [address] [place] [address] Referring Physician Cardiology 05/24/20 Tone Mishra MD [address] [facility] [address] [place] [address] Consulting Physician Cardiology 06/04/20 documented as of this encounter
--- OUTSIDE RECORDS SUMMARY | 2025-04-29 08:40 | XMS_ITS | Clinical Summary ---
Author Organization [facility] Address [address] [place] [address] Phone Care Team Providers Care Community Health Consultant Name Role Phone Unavailable Primary Care Provider Unavailabl e Social History Tobacco Use Types Packs/Day Years Used Date Smoking Tobacco: Never Assessed Comments Unknown Sex and Gender Information Value Date Recorded Sex Assigned at Not on file Legal Sex Female 8:11 PM DATA SCIENCES DIRECTOR Gender Identity Not on file Sexual Orientation Not on file Plan of Treatment Not on file
--- OUTSIDE RECORDS SUMMARY | 2025-04-29 08:40 | XMS_ITS | Clinical Summary ---
Author Organization [facility] Address [address] [place] [address] Care Team Providers Care Online Marketing Coordinator Name Role Phone Unavailable Primary Care Provider [...] Scan (General) 02/09/2020 COVID-19 Vaccine ( - 2024-2 6 season) 2025 Influenza Adult (#1) 2025 RSV Immunization or 60+ Years (1 - 1-dose 75+ series) 2030 Hepatitis A Vaccines Aged Out No long er eligible based on patient's age to complete this topic Meningococcal B Vaccine Aged Out No l onger eligible based on patient's age to complete this topic Meningococcal Vaccine Aged Out No jayesh enedina eligible based on patient's age to complete this topic RSV Immunizations Under 20 Months Aged Out No longer eligible based on patient's age to complete this topic
--- OUTSIDE RECORDS SUMMARY | 2025-04-29 08:40 | XMS_ITS | Encounter Summary ---
Author Organization [facility] Address [address] [place] [address] Phone Care Team Providers Care Nursing Scheduler Name Role Phone Marek Treviño DO Primary Care Provider Lisa Pierce NP Unavailable Shane Alaniz MD Unavailable [phone] Deonte Martini MD PhD Unavailable [phone] Tone Mishra MD Unavailable [phone] Encounter Details Date Type Department Care Team (Latest Contact Info) Description 02/03/2017 Orders Only [facility] Scanning, Provider Social History Tobacco Use Types Packs/Day Years Used Date Smoking Tobacco: Never Assessed Comments Unknown Sex and Gender Information Value Date Recorded Sex Assigned at Not on file Legal Sex Female 3:33 AM DELINQUENT NOTICE MACHINE OPERATOR Gender Identity Not on file Sexual Orientation [...] on filedocumented in this encounter Care Teams Nursing Scheduler Relationship Specialty Start Date End Date Marek Treviño DO PCP - General 08/03/14 Lisa Pierce NP [address] [place] [address] Referring Physician Cardiology 09/06/19 02/25/23 Shane Alaniz MD [address] [place] [address] Surgeon Cardiothoracic Surgery 05/24/20 Deonte Martini MD PhD [address] [place] [address] Referring Physician Cardiology 05/24/20 Tone Mishra MD [address] [place] [address] Consulting Physician Cardiology 06/04/20 documented as of this encounter
== END 2025-04-29 08:36 | disposition home or self-care (01) ==
LOC: ANHIMG 08:37
PROVIDERS: PCP Internal Medicine; Visit Provider Clinical Nurse Specialist
DX: R91.1 Solitary pulmonary nodule (principal); R07.89 Other chest pain
CPT/HCPCS: 71250